=== PATIENT | female | born 1950 | race American Indian/Alaskan Native ===

== ENCOUNTER 2017-06-04 08:25 | Inpatient (IN) | payer BC, MEDICARE ==
[~2017-06-04 08:25] MED LIST: ANCEF/STERILE WATER 2 GM/20 ML IV NR
[2017-06-04] MEDS ORDERED: ZOFRAN IV PRN (12:09)
--- NOTE | 2017-06-04 12:11 | Anesthesia Day of Surgery ---
Anesthesia Day of Surgery - Day of Surgery Patient Examined: Yes Patient H&P Reviewed: Yes Patient is NPO: Yes Beta Blockers: Yes
--- NOTE | 2017-06-04 12:13 | Anesthesia Consultation ---
Anesthesia Consult and Med Hx Date of service: 06/04/17 - Airway Anesthetic Teeth Evaluation: Good, Dentures (top) ROM Head & Neck: Adequate Mental/Hyoid Distance: Adequate Mallampati Class: Class II Intubation Access Assessment: Probably Good - Pulmonary Exam CTA: Yes - Cardiac Exam Cardiac Exam: RRR - Pre-Operative Health Status ASA Pre-Surgery Classification: ASA3 Proposed Anesthetic Plan: General - Pulmonary Hx Smoking: Yes (STOPPED 1998, 09/09 PPD X 10 YRS) Hx Sleep Apnea: No (MELVI PRE SCREEN HIGH RISK) - Cardiovascular System Hx Hypertension: Yes (X 10 YRS) Hx Heart Murmur: Yes (CAUSES NO PROBLEMS) - Central Nervous System CVA: No - Gastrointestinal Hx Gastroesophageal Reflux Disease: No - Endocrine Hx Renal Disease: Yes (AVF LEFT ARM) Hx End Stage Renal Disease: Yes (HEMODIALYSIS 3 X PER WEEK) Hx Non-Insulin Dependent Diabetes: No - Hematic Hx Anemia: Yes Hx Sickle Cell Disease: Yes (SC TRAIT ONLY) - Other Systems Hx Cancer: Yes (Left Breast CA History, Mastectomy) Hx Obesity: Yes - Additional Comments Anesthesia Medical History Comments: NAC
[2017-06-04] MEDS: NACL 0.9% 1000 ML 1,000 ML IV SCH ×2 (12:30→21:54)
[2017-06-04] MEDS ORDERED: DIPRIVAN 10 MG/ML IV ONE ×2 (12:55→15:48)
[2017-06-04] MEDS ORDERED: SUBLIMAZE ONE (12:55)
[2017-06-04] MEDS ORDERED: XYLOCAINE MPF 2% ONE (12:56)
[2017-06-04] MEDS ORDERED: XYLOCAINE 1% 20 mL ONE (12:59)
[2017-06-04] MEDS ORDERED: MARCAINE-EPI/PF 0.5%-1:200,000 INFILTRATI ONE ×2 (13:00→15:05)
[2017-06-04] MEDS ORDERED: PEPCID IV NR (13:00)
[2017-06-04] MEDS ORDERED: VERSED IV NR (13:00)
[2017-06-04] MEDS ORDERED: ePHEDrine SULFATE ONE (13:42)
[2017-06-04] MEDS ORDERED: ROBINUL ONE ×2 (13:44→14:47)
[2017-06-04] MEDS ORDERED: PROAIR IH ONE (13:49)
[2017-06-04 14:23] LABS: BUN/Creatinine Ratio 7.74; Calcium 9.3 mg/dL (8.4-10.2); Chloride 99.4 mmol/L (98-107); Potassium 5.2 mmol/L (3.6-5.0)
[2017-06-04] MEDS ORDERED: NEOSTIGMINE ONE (14:47)
[2017-06-04] MEDS ORDERED: NEO SYNEPHRINE ONE (14:53)
[2017-06-04] MEDS ORDERED: NACL 0.9% 100 ML ONE (14:53)
--- NOTE | 2017-06-04 14:55 | XRay Report ---
Single fluoroscopic image of upper chest: History: Central line placement. Findings: Tip of the central line appears to be near the origin of the left internal jugular vein. Impression: Findings as detailed above.
[2017-06-04 14:59] LABS: PTH Baseline 641.9 (11.1-79.5)
[2017-06-04] MEDS ORDERED: NACL 0.9% IR ONE (14:59)
[2017-06-04] MEDS ORDERED: XYLOCAINE 1% 20 mL INFILTRATI ONE (15:04)
--- NOTE | 2017-06-04 15:06 | Post Operative Note ---
Pre-op diagnosis: secondary hyperparathyroidism Post-op diagnosis: other (difficult IV access) Findings: 3 large PTH glands removed. Only L. upper pole PTH remaining. Difficult IV access requiring TLC placement. Procedure: Subtotal PTH resection, TLC placement with US guidance and flouro Anesthesia: SANJU Surgeon: STEFANIE HERNANDEZ Estimated blood loss: none Pathology: list (3 PTH glands) Specimen disposition: to lab Condition: stable Disposition: PACU
[2017-06-04 15:28] LABS: PTH Post-Excision 154.7 (11.1-79.5)
[2017-06-04] MEDS ORDERED: S2 RACEPINEPHRINE 2.25% IH ONE (15:44)
[2017-06-04] MEDS ORDERED: QUELICIN ONE (15:49)
[2017-06-04 16:24] LABS: ISTAT K 5.3 (3.5-4.9)
[2017-06-04 16:24] LABS: ISTAT Base Excess 3; ISTAT HCO3 29.3; ISTAT PCO2 58.7 (35-45); ISTAT PH 7.306 (7.35-7.45); ISTAT PO2 338 (80-105); ISTAT SO2 100; ISTAT TCO2 31
[2017-06-04 16:24] LABS: ISTAT K 5.2 (3.5-4.9)
[2017-06-04] MEDS ORDERED: DECADRON IV ONE (16:30)
--- NOTE | 2017-06-04 16:30 | Progress Note ---
Subjective Date of service: 06/04/17 Principal diagnosis: Inadequate ventilation Interval history: s/p subtotal parathyroidectomy. Patient present to PACU on NRFM 10L/min. Vital signs stable. Increasing agitation and uncooperative. MD notified and at bedside. Spo2 88-90 with no support except NRFM. Patient nonresponsive - immediate AMBU ventilation by MD. A/W suctioned. SpO2 96-97% with other vitals WNL. Administered 100mg Succinylcholine and 200mg Propofol. DL 1- Husain 2: swelling noted in airway obstructing view of vocal chords. CL III view. 6.5 OETT placed without complication. BBS +, EtCO2 +, VSS. OETT secured at 22cm teeth. Respiratory therapy placed patient on vent. VSS. Surgeon notified. Objective - Constitutional Vitals: Vital Signs - 12hr 06/04/17 11:00 Temperature 97.8 F Pulse Rate 59 L Respiratory 18 Rate Blood Pressure 163/95 O2 Sat by Pulse 95 Oximetry - Labs CBC & Chem 7: 06/04/17 13:55 Labs: Abnormal lab results 06/04/17 06/04/17 06/04/17 Range/Units 12:50 13:55 13:55 Potassium 5.1 H 5.2 H (3.6-5.0) mmol/L BUN 48 H (7-17) mg/dL Creatinine 6.2 H (0.7-1.2) mg/dL PTH Pre-Incision 641.9 H (11.1-79.5) PTH Post-Excision 154.7 H (11.1-79.5)
--- NOTE | 2017-06-04 16:31 | XRay Report ---
Single view chest: Compared to 06/04/17 and obtained at 1:43 PM History: ET tube placement. Findings: Cardiomegaly with pulmonary venous congestion. No consolidation, pneumothorax or pleural effusion. Tip of endotracheal tube in normal position. No interval change in position of the left central line. Impression: Normal position of endotracheal tube.
[2017-06-04] MEDS ORDERED: DECADRON ONE (16:34)
[2017-06-04] MEDS ORDERED: ALUM-MAG HYDROX-SIMETH 200-200-20MG/5ML PO PRN (16:35)
[2017-06-04] MEDS ORDERED: MILK OF MAGNESIA PO PRN (16:35)
[2017-06-04] MEDS ORDERED: DULCOLAX PR PRN (16:35)
--- NOTE | 2017-06-04 16:35 | History and Physical Report ---
History of Present Illness Date of admission: 06/04/17 08:25 Chief complaint: Cant breathe History of present illness: 66 YO Female with MO, HTN, MELVI, ESRD on HD, Hyperparathyroidism, Breast Cancer S /P Mastectomy admitted directly to hospitalist service at the request of Dr. Singh. Pt underwent elective parathyroid surgery and found to have electrolyte abnormalities , and well as respiratory distress. Pt seen and evaluated and found to be in respiratory distress, and was subsequently intubated and placed on vent support. Pt unable to provide history. History taken from hospital staff and medical record. No reports of fever, chills, CP, Palpitations, NVD, or recent ill contacts. Past History Past Medical History: ESRD, hypertension, other (hyperparathyroidism) Past Surgical History: mastectomy, Other (Parathyroidectomy) Social history: single. denies: smoking, alcohol abuse, prescription drug abuse , IV drug use Family history: hypertension Medications and Allergies Allergies Allergy/AdvReac Type Severity Reaction Status Date / Time No Known Allergies Allergy Verified 06/01/17 16:40 Home Medications Medication Instructions Recorded Confirmed Last Taken Type Aspirin [Adult Low Dose Aspirin EC] 81 mg PO DAILY 06/01/17 06/04/17 06/02/17 History Cinacalcet HCl [Sensipar] 180 mg PO DAILY 06/01/17 06/01/17 06/03/17 History Furosemide [Lasix TAB] 80 mg PO QDAY 06/01/17 06/01/17 Unknown History Losartan [Cozaar] 100 mg PO QDAY 06/01/17 06/01/17 06/04/17 07:00 History Metoprolol [Lopressor TAB] 50 mg PO BID 06/01/17 06/01/17 06/04/17 07:00 History Sevelamer Carbonate [Renvela] 1,600 mg PO TIDWM 06/01/17 06/01/17 06/03/17 History Active Meds: Active Medications Famotidine (Pepcid) 20 mg IV PREOP NR Stop: 06/04/17 23:59 Last Admin: 06/04/17 12:55 Dose: 20 mg Hydromorphone HCl (Dilaudid) 0.5 mg IV Q10MIN PRN PRN Reason: Pain , Severe (7-10) Stop: 06/04/17 23:59 Sodium Chloride (Nacl 0.9% 1000 Ml) 1,000 mls @ 100 mls/hr IV DIRECT JANE Last Admin: 06/04/17 12:30 Dose: 100 mls/hr Midazolam HCl (Versed) 2 mg IV PREOP NR Stop: 06/04/17 23:59 Last Admin: 06/04/17 12:35 Dose: 2 mg Review of Systems ROS unobtainable: due to mental status Exam - Constitutional Vitals: Temp Pulse Resp BP Pulse Ox 97.8 F 62 18 163/95 98 06/04/17 11:00 06/04/17 16:27 06/04/17 11:00 06/04/17 11:00 06/04/17 16:27 General appearance: Present: severe distress, obese - EENT Eyes: Present: PERRL ENT: hearing intact, clear oral mucosa - Neck Neck: Present: supple, normal ROM - Respiratory Respiratory effort: labored Respiratory: bilateral: diminished - Cardiovascular Heart Sounds: Present: S1 & S2. Absent: rub, click - Extremities Extremities: pulses symmetrical, No edema Extremity abnormal: edema Peripheral Pulses: within normal limits - Abdominal Female genitourinary: Present: normal - Integumentary Integumentary: Present: clear, warm, dry - Musculoskeletal Musculoskeletal: generalized weakness - Psychiatric Psychiatric: no intact judgment & insight, no memory intact, agitated - Neurologic Neurologic: CNII-XII intact, moves all extremities Results - Labs CBC & Chem 7: 06/04/17 13:55 Labs: Abnormal lab results 06/04/17 06/04/17 06/04/17 Range/Units 12:50 13:55 13:55 POC Hct (38-51) POC ABG pH (7.35-7.45) POC ABG pCO2 (35-45) POC ABG pO2 (80-105) POC Sodium (138-146) mmol/L POC Potassium (3.5-4.9) Potassium 5.1 H 5.2 H (3.6-5.0) mmol/L POC BUN (8-26) mg/dl BUN 48 H (7-17) mg/dL Creatinine 6.2 H (0.7-1.2) mg/dL POC Glucose (70-105) PTH Pre-Incision 641.9 H (11.1-79.5) PTH Post-Excision 154.7 H (11.1-79.5) 06/04/17 06/04/17 06/04/17 Range/Units 16:10 16:16 16:22 POC Hct 37 L (38-51) POC ABG pH 7.306 L (7.35-7.45) POC ABG pCO2 58.7 H (35-45) POC ABG pO2 338 H (80-105) POC Sodium 135 L 137 L (138-146) mmol/L POC Potassium 5.2 H 5.3 H (3.5-4.9) Potassium (3.6-5.0) mmol/L POC BUN 44 H 45 H (8-26) mg/dl BUN (7-17) mg/dL Creatinine (0.7-1.2) mg/dL POC Glucose 183 H 176 H (70-105) PTH Pre-Incision (11.1-79.5) PTH Post-Excision (11.1-79.5) Assessment and Plan - Patient Problems (1) Acute respiratory failure Current Visit: Yes Status: Acute Qualifiers: Respiratory failure complication: R Plan to address problem: Pulmonary consulted, wean vent as tolerated, SBT daily, ABG in AM, nebulizer therapy, pulmonary toilet, IV decadron for swelling, The high probability of a clinically significant, sudden or life threatening deterioration of the [Pulmonary, cardiac, renal] system(s) required my full and direct attention, intervention and personal management. The aggregate critical care time was [68] minutes. This time is in addition to time spent performing reported procedures but includes the following: [x] Data Review and interpretation [x] Patient assessment and monitoring of vital signs [x] Documentation [x] Medication orders and management (2) ESRD (end stage renal disease) on dialysis Current Visit: Yes Status: Acute Plan to address problem: Nephrology consulted, dialysis as per renal team (3) HTN (hypertension) Current Visit: Yes Status: Acute Qualifiers: Hypertension type: H Plan to address problem: Monitor bp q shift, continue medical management. (4) Hypercalcemia Current Visit: Yes Status: Acute Plan to address problem: nephrology consulted, repeat calcium level (5) Hyperparathyroidism Current Visit: Yes Status: Acute Plan to address problem: serial calcium level, S/P parathyroidectomy, nephrology consulted (6) DVT prophylaxis Current Visit: Yes Status: Acute
[2017-06-04] MEDS ORDERED: ARTIFICIAL TEARS OPHTH OINT OU PRN ×2 (16:39→17:25)
[2017-06-04] MEDS ORDERED: VASELINE LIP THERAPY TP PRN ×2 (16:39→17:25)
--- NOTE | 2017-06-04 16:46 | Post Anesthesia Evaluation ---
- Post Anesthesia Evaluation Patient Participated: No Airway Patent: Yes Stable Respiratory Function: Yes Nausea/Vomiting: No Temp > 96.8F: Yes Pain Manageable: Yes Block Receding Appropriately: Not Applicable Patient on Ventilator: Yes Other Comments: Ms Mckoen was extubated in the OR at end of case and transported to PACU with SaO2 100%. Shortly thereafter she developed respiratory distress with the ability to inspire bur a markedly prolonged expiratory phase. Her SaO2 decreased into the mid 80's and she had decreased level of consciousness. She was reintubated emergently by the national stormwater leader who reported erythema and some swelling in the glottic area. There was a fullness noted at the surgical site but no obvious hematoma. ABG immediately after intubation showed a mild increase in CO2 and a mild acidosis. Oxygen level was appropriate for her FiO2.
[2017-06-04] MEDS: DIPRIVAN 10 MG/ML 1,000 MG/100 ML BOTTLE IV SCH (16:50)
[2017-06-04] MEDS ORDERED: DIPRIVAN 10 MG/ML 1,000 MG/100 ML BOTTLE IV SCH (17:00)
[2017-06-04] MEDS: DILAUDID IV PRN ×3 (17:05→22:04)
[2017-06-04 21:00] LABS: ISTAT Base Excess 6; ISTAT PCO2 38.6 (35-45); ISTAT PH 7.484 (7.35-7.45); ISTAT PO2 100 (80-105); ISTAT SO2 98; ISTAT TCO2 30
[2017-06-04] MEDS: DECADRON IV SCH ×2 (21:54→22:06)
[2017-06-04] MEDS: PEPCID IV SCH (21:55)
[2017-06-04 21:59] LABS: BUN/Creatinine Ratio 7.84; Calcium 8.9 mg/dL (8.4-10.2); Chloride 98.9 mmol/L (98-107); Potassium 5.2 mmol/L (3.6-5.0)
[2017-06-04 22:30] LABS: Hemoglobin 10.3 gm/dl (10.1-14.3); Mean Corpuscular HGB Conc 30 % (30-34); Mean Corpuscular Volume 76 fl (79-97); Platelet Count 251 K/mm3 (140-440); Red Blood Count 4.44 M/mm3 (3.65-5.03); Red Cell Distribution Width 18.5 % (13.2-15.2); White Blood Count 11.4 K/mm3 (4.5-11.0)
[2017-06-04 23:03] LABS: Mean Corpuscular Hemoglobin 23 pg (28-32)
--- NOTE | 2017-06-05 00:05 | Operative Report ---
PREOPERATIVE DIAGNOSES: Secondary hyperparathyroidism and difficult IV access. POSTOPERATIVE DIAGNOSES: Secondary hyperparathyroidism and difficult IV access. PROCEDURE: Subtotal parathyroidectomy and central line placement with ultrasound guidance and use of fluoroscopy. SURGEON: Sascha Singh M.D. SERVICE CASHIER: None. ANESTHESIA: General anesthesia. ESTIMATED BLOOD LOSS: Minimal. COMPLICATIONS: None. DRAINS: None. SPECIMEN: Three parathyroid glands. The patient tolerated the procedure well. FINDINGS: Enlarged parathyroid secondary to hyperparathyroidism. The left superior parathyroid was normal appearance. All other three were very enlarged and hypercellular in appearance. We did a subtotal parathyroidectomy, the patient unable to get IV access, we had to put a central line for IV access. DESCRIPTION OF PROCEDURE: The patient was taken to the OR and placed supine on the operating table. Once general anesthesia obtained, due to her difficult IV access we elected to place a central line. The area of the neck was prepped and draped. With help of ultrasound guidance, we were able to localize the internal jugular vein. The internal jugular vein was then percutaneously aspirated under ultrasound guidance. Good aspiration of fluid, placed a guide wire through the internal jugular vein, slid it inferiorly. There was some resistance near the confluence. Due to this, I elected just to put the catheter just in proximal to this confluence was. The guide wire was left in place. Needle removed. The tract was dilated. The catheter was slid to approximately 12 cm. The guide wire was removed. The triple lumen catheter was flushed and found to function appropriately. It was secured in place with a silk suture. This position of the catheter was checked by fluoroscopy. After this was completed, the neck was extended and prepped and draped in sterile fashion. A transverse collar incision made approximately 5 cm in length and ____ was taken to subcutaneous tissue through the platysma, flaps raised superiorly, inferiorly exposing midline. Strap muscles incised in the midline to expose the thyroid. We started on the left thyroid side first, left thyroid was mobilized medially, strap muscles inferolaterally. Then, the left superior parathyroid as well as left inferior parathyroid. The left superior parathyroid was marginally enlarged compared to normal. The left inferior parathyroid was very enlarged as well as very firm and dense consistent with hypercellularity. It was dissected down. The vascular pedicle transected and sent completely as a frozen section. In similar fashion, the right side was done. The right thyroid was mobilized medially. Strap muscles dissected laterally. The right inferior parathyroid was very enlarged, approximately 4 cm in diameter and it was dissected down to left pedicle transected with LigaSure and sent as specimen. In the similar fashion, the superior one was approximately about 2 cm in diameter. All 3 parathyroid was confirmed to be hypercellular parathyroid tissue. I elected to leave the left superior since they appeared marginally normal. After adequate hemostasis, the strap muscle was approximated with 3-0 Vicryl, subcutaneous tissues approximated with 3-0 Vicryl, skin was approximated with subcuticular technique and Dermabond was placed on the incision. The patient tolerated the procedure well. JOB# [id number] KIET/BARBI
[2017-06-05 00:28] LABS: Anisocytosis Few; Blastocytes % (Manual) 0 %; Eosinophils % (Manual) 0 % (0.0-4.3); Hypochromasia 1+; Ovalocytes 1+
[2017-06-05 00:29] LABS: Target Cells Rare
[2017-06-05 00:30] LABS: Diff Status Complete
[2017-06-05 03:33] LABS: ISTAT Base Excess 1; ISTAT HCO3 25.7; ISTAT PCO2 42.2 (35-45); ISTAT PH 7.393 (7.35-7.45); ISTAT PO2 75 (80-105); ISTAT SO2 95; ISTAT TCO2 27
[2017-06-05] MEDS: DECADRON IV SCH ×3 (06:41→23:34)
[2017-06-05] MEDS: NACL 0.9% 1000 ML 1,000 ML IV SCH (06:41)
--- NOTE | 2017-06-05 09:53 | Progress Note ---
Assessment and Plan Assessment and plan: --Acute hypoxic respiratory failure On ventilatory support, continue nebulizers supportive care --Status post subtotal parathyroidectomy Continue postop care --End-stage renal disease on hemodialysis Continue HD per schedule, nephrology following --Hyperkalemia; hemodialysis, --Hypertension ;moderate control ,continue current antihypertensives and when necessary medications --History of breast cancer status post mastectomy stable --Morbid obesity with BMI of 47.8, Patient would benefit by outpatient bariatric surgical evaluation for weight reduction program and medically stable --Full CODE STATUS Critical care time 31 minutes History Interval history: Patient seen and examined in her room Medical records reviewed Orally intubated on ventilatory support Receiving hemodialysis No new complaints Hospitalist Physical - Constitutional Vitals: Temp Pulse Resp BP Pulse Ox 98.1 F 60 16 148/62 96 06/05/17 02:58 06/05/17 07:00 06/05/17 06:30 06/05/17 07:00 06/05/17 07:00 General appearance: Present: no acute distress, obese (morbidly obese) - EENT Eyes: Present: PERRL - Neck Neck: Present: supple, normal ROM - Respiratory Respiratory effort: normal Respiratory: bilateral: diminished, rhonchi, negative: rales, wheezing - Cardiovascular Rhythm: regular Heart Sounds: Present: S1 & S2 - Extremities Extremities: no ischemia, No edema - Abdominal General gastrointestinal: soft, non-tender, non-distended, normal bowel sounds - Integumentary Integumentary: Present: clear, warm - Psychiatric Psychiatric: other (intubated and sedated) - Neurologic Neurologic: other ( intubated and sedated) Results - Labs CBC & Chem 7: 06/05/17 11:44 06/05/17 11:44 Labs: Laboratory Last Values WBC 11.4 K/mm3 (4.5-11.0) H 06/04/17 00:01 RBC 4.44 M/mm3 (3.65-5.03) 06/04/17 00:01 Hgb 10.3 gm/dl (10.1-14.3) 06/04/17 00:01 POC Hgb 14.3 (12-17) 06/04/17 16:22 Hct 34.0 % (30.3-42.9) 06/04/17 00:01 POC Hct 42 (38-51) 06/04/17 16:22 MCV 76 fl (79-97) L 06/04/17 00:01 MCH 23 pg (28-32) L 06/04/17 00:01 MCHC 30 % (30-34) 06/04/17 00:01 RDW 18.5 % (13.2-15.2) H 06/04/17 00:01 Plt Count 251 K/mm3 (140-440) 06/04/17 00:01 Add Manual Diff Complete 06/04/17 00:01 Total Counted 100 06/04/17 00:01 Seg Neutrophils % Butcher Helper 06/04/17 00:01 Seg Neuts % (Manual) 89.0 % (40.0-70.0) H 06/04/17 00:01 Band Neutrophils % 4.0 % 06/04/17 00:01 Lymphocytes % (Manual) 6.0 % (13.4-35.0) L 06/04/17 00:01 Reactive Lymphs % (Man) 0 % 06/04/17 00:01 Monocytes % (Manual) 0 % (0.0-7.3) 06/04/17 00:01 Eosinophils % (Manual) 0 % (0.0-4.3) 06/04/17 00:01 Basophils % (Manual) 1.0 % (0.0-1.8) 06/04/17 00:01 Metamyelocytes % 0 % 06/04/17 00:01 Myelocytes % 0 % 06/04/17 00:01 Promyelocytes % 0 % 06/04/17 00:01 Blast Cells % 0 % 06/04/17 00:01 Nucleated RBC % Not Reportable 06/04/17 00:01 Seg Neutrophils # Man 10.1 K/mm3 (1.8-7.7) H 06/04/17 00:01 Band Neutrophils # 0.5 K/mm3 06/04/17 00:01 Lymphocytes # (Manual) 0.7 K/mm3 (1.2-5.4) L 06/04/17 00:01 Abs React Lymphs (Man) 0.0 K/mm3 06/04/17 00:01 Monocytes # (Manual) 0.0 K/mm3 (0.0-0.8) 06/04/17 00:01 Eosinophils # (Manual) 0.0 K/mm3 (0.0-0.4) 06/04/17 00:01 Basophils # (Manual) 0.1 K/mm3 (0.0-0.1) 06/04/17 00:01 Metamyelocytes # 0.0 K/mm3 06/04/17 00:01 Myelocytes # 0.0 K/mm3 06/04/17 00:01 Promyelocytes # 0.0 K/mm3 06/04/17 00:01 Blast Cells # 0.0 K/mm3 06/04/17 00:01 WBC Morphology Not Reportable 06/04/17 00:01 Hypersegmented Neuts Not Reportable 06/04/17 00:01 Hyposegmented Neuts Not Reportable 06/04/17 00:01 Hypogranular Neuts Not Reportable 06/04/17 00:01 Smudge Cells Not Reportable 06/04/17 00:01 Toxic Granulation Not Reportable 06/04/17 00:01 Toxic Vacuolation Not Reportable 06/04/17 00:01 Dohle Bodies Not Reportable 06/04/17 00:01 Pelger-Huet Anomaly Not Reportable 06/04/17 00:01 Sunita Rods Not Reportable 06/04/17 00:01 Platelet Estimate Appears normal 06/04/17 00:01 Clumped Platelets Not Reportable 06/04/17 00:01 Plt Clumps, EDTA Not Reportable 06/04/17 00:01 Large Platelets Not Reportable 06/04/17 00:01 Giant Platelets Not Reportable 06/04/17 00:01 Platelet Satelliting Not Reportable 06/04/17 00:01 Plt Morphology Comment Not Reportable 06/04/17 00:01 RBC Morphology Not Reportable 06/04/17 00:01 Dimorphic RBCs Not Reportable 06/04/17 00:01 Polychromasia Not Reportable 06/04/17 00:01 Hypochromasia 1+ 06/04/17 00:01 Poikilocytosis Not Reportable 06/04/17 00:01 Anisocytosis Few 06/04/17 00:01 Microcytosis Not Reportable 06/04/17 00:01 Macrocytosis Not Reportable 06/04/17 00:01 Spherocytes Not Reportable 06/04/17 00:01 Pappenheimer Bodies Not Reportable 06/04/17 00:01 Sickle Cells Not Reportable 06/04/17 00:01 Target Cells Rare 06/04/17 00:01 Tear Drop Cells Not Reportable 06/04/17 00:01 Ovalocytes 1+ 06/04/17 00:01 Helmet Cells Not Reportable 06/04/17 00:01 Ramos-[place] Bodies Not Reportable 06/04/17 00:01 [place] Rings Not Reportable 06/04/17 00:01 Ballinger Cells Not Reportable 06/04/17 00:01 Bite Cells Not Reportable 06/04/17 00:01 Crenated Cell Not Reportable 06/04/17 00:01 Elliptocytes Not Reportable 06/04/17 00:01 Acanthocytes (Spur) Not Reportable 06/04/17 00:01 Rouleaux Not Reportable 06/04/17 00:01 Hemoglobin C Crystals Not Reportable 06/04/17 00:01 Schistocytes Not Reportable 06/04/17 00:01 Malaria parasites Not Reportable 06/04/17 00:01 Williams Bodies Not Reportable 06/04/17 00:01 Hem Pathologist Commnt No 06/04/17 00:01 POC ABG pH 7.393 (7.35-7.45) 06/05/17 03:31 POC ABG pCO2 42.2 (35-45) 06/05/17 03:31 POC ABG pO2 75 (80-105) L 06/05/17 03:31 POC ABG HCO3 25.7 06/05/17 03:31 POC ABG Total CO2 27 06/05/17 03:31 POC ABG O2 Sat 95 06/05/17 03:31 POC ABG Base Excess 1 06/05/17 03:31 POC Sodium 137 mmol/L (138-146) L 06/04/17 16:22 POC Potassium 5.3 (3.5-4.9) H 06/04/17 16:22 POC Chloride 102 (98-109) 06/04/17 16:22 FiO2 50 % 06/05/17 03:31 Sodium 138 mmol/L (137-145) 06/04/17 21:29 Potassium 5.2 mmol/L (3.6-5.0) H 06/04/17 21:29 Chloride 98.9 mmol/L (98-107) 06/04/17 21:29 Carbon Dioxide 24 mmol/L (22-30) 06/04/17 21:29 Anion Gap 20 mmol/L 06/04/17 21:29 POC BUN 45 mg/dl (8-26) H 06/04/17 16:22 BUN 51 mg/dL (7-17) H 06/04/17 21:29 Creatinine 6.5 mg/dL (0.7-1.2) H 06/04/17 21:29 Estimated GFR 8 ml/min 06/04/17 21:29 BUN/Creatinine Ratio 7.84 % 06/04/17 21:29 Glucose 119 mg/dL (65-100) H 06/04/17 21:29 POC Glucose 176 (70-105) H 06/04/17 16:22 Calcium 8.9 mg/dL (8.4-10.2) 06/04/17 21:29 PTH Pre-Incision 641.9 (11.1-79.5) H 06/04/17 13:55 PTH Post-Excision 154.7 (11.1-79.5) H 06/04/17 13:55 PTH Intact Intraop 5 m Not Reportable 06/04/17 13:55
--- NOTE | 2017-06-05 10:21 | Progress Note ---
Assessment and Plan sp PTH resection. Hopeful dialysis and extubation today. Calcium stable. Pt comfortable. Subjective Date of service: 06/05/17 Patient Reports: Positive: no new complaints (on vent) Objective Vital Signs - 12hr 06/04/17 06/04/17 06/04/17 22:20 22:30 22:40 Temperature Pulse Rate 62 61 59 L Pulse Rate [ From Monitor] Respiratory 16 16 16 Rate Blood Pressure 153/68 153/68 153/68 O2 Sat by Pulse 97 96 95 Oximetry 06/04/17 06/04/17 06/04/17 22:50 23:00 23:07 Temperature Pulse Rate 58 L 56 L 56 L Pulse Rate [ From Monitor] Respiratory 16 16 Rate Blood Pressure 153/68 162/63 162/63 O2 Sat by Pulse 95 95 95 Oximetry 06/04/17 06/04/17 06/04/17 23:08 23:10 23:20 Temperature Pulse Rate 56 L 65 58 L Pulse Rate [ From Monitor] Respiratory 16 16 16 Rate Blood Pressure 162/63 162/63 162/63 O2 Sat by Pulse 95 96 96 Oximetry 06/04/17 06/04/17 06/04/17 23:30 23:35 23:40 Temperature 98.1 F Pulse Rate 56 L 55 L Pulse Rate [ From Monitor] Respiratory 16 16 Rate Blood Pressure 162/63 162/63 O2 Sat by Pulse 95 96 Oximetry 06/04/17 06/05/17 06/05/17 23:50 00:00 00:10 Temperature Pulse Rate 56 L 55 L 57 L Pulse Rate [ 58 L From Monitor] Respiratory 16 16 16 Rate Blood Pressure 162/63 146/64 146/64 O2 Sat by Pulse 96 96 96 Oximetry 06/05/17 06/05/17 06/05/17 00:20 00:30 00:40 Temperature Pulse Rate 56 L 55 L 55 L Pulse Rate [ From Monitor] Respiratory 16 16 16 Rate Blood Pressure 146/64 146/64 146/64 O2 Sat by Pulse 96 96 96 Oximetry 06/05/17 06/05/17 06/05/17 00:50 01:00 01:10 Temperature Pulse Rate 54 L 54 L 54 L Pulse Rate [ From Monitor] Respiratory 16 16 16 Rate Blood Pressure 146/64 147/69 147/69 O2 Sat by Pulse 96 96 96 Oximetry 06/05/17 06/05/17 06/05/17 01:20 01:30 01:40 Temperature Pulse Rate 54 L 54 L 54 L Pulse Rate [ From Monitor] Respiratory 16 16 16 Rate Blood Pressure 146/64 146/64 146/64 O2 Sat by Pulse 96 96 96 Oximetry 06/05/17 06/05/17 06/05/17 01:50 02:00 02:10 Temperature Pulse Rate 54 L 53 L 54 L Pulse Rate [ From Monitor] Respiratory 16 16 16 Rate Blood Pressure 147/69 156/66 156/66 O2 Sat by Pulse 96 96 96 Oximetry 06/05/17 06/05/17 06/05/17 02:20 02:30 02:40 Temperature Pulse Rate 55 L 54 L 68 Pulse Rate [ From Monitor] Respiratory 16 16 17 Rate Blood Pressure 156/66 156/66 156/66 O2 Sat by Pulse 96 96 95 Oximetry 06/05/17 06/05/17 06/05/17 02:50 02:57 02:58 Temperature 98.1 F Pulse Rate 57 L 57 L Pulse Rate [ From Monitor] Respiratory 16 Rate Blood Pressure 156/66 156/66 O2 Sat by Pulse 96 96 Oximetry 06/05/17 06/05/17 06/05/17 03:00 03:10 03:20 Temperature Pulse Rate 57 L 62 59 L Pulse Rate [ From Monitor] Respiratory 16 16 16 Rate Blood Pressure 161/76 161/76 161/76 O2 Sat by Pulse 96 96 96 Oximetry 06/05/17 06/05/17 06/05/17 03:30 03:40 03:50 Temperature Pulse Rate 58 L 54 L 54 L Pulse Rate [ From Monitor] Respiratory 16 16 16 Rate Blood Pressure 161/76 161/76 161/76 O2 Sat by Pulse 96 94 96 Oximetry 06/05/17 06/05/17 06/05/17 04:00 04:10 04:20 Temperature Pulse Rate 54 L 54 L 54 L Pulse Rate [ From Monitor] Respiratory 16 16 16 Rate Blood Pressure 163/69 163/69 163/69 O2 Sat by Pulse 96 95 96 Oximetry 06/05/17 06/05/17 06/05/17 04:30 04:40 04:50 Temperature Pulse Rate 54 L 55 L 53 L Pulse Rate [ From Monitor] Respiratory 16 16 16 Rate Blood Pressure 163/69 163/69 163/69 O2 Sat by Pulse 97 97 97 Oximetry 06/05/17 06/05/1706/05/17 05:00 05:10 05:20 Temperature Pulse Rate 56 L 54 L 54 L Pulse Rate [ From Monitor] Respiratory 16 16 16 Rate Blood Pressure 163/71 163/71 163/71 O2 Sat by Pulse 95 94 95 Oximetry 06/05/17 06/05/17 06/05/17 05:30 05:40 05:50 Temperature Pulse Rate 54 L 54 L 54 L Pulse Rate [ From Monitor] Respiratory 16 16 16 Rate Blood Pressure 163/71 163/71 163/71 O2 Sat by Pulse 95 96 96 Oximetry 06/05/17 06/05/17 06/05/17 06:00 06:10 06:20 Temperature Pulse Rate 53 L 57 L 53 L Pulse Rate [ From Monitor] Respiratory 16 16 16 Rate Blood Pressure 150/71 150/71 150/71 O2 Sat by Pulse 95 96 96 Oximetry 06/05/17 06/05/17 06/05/17 06:30 07:00 08:00 Temperature Pulse Rate 55 L 64 56 L Pulse Rate [ From Monitor] Respiratory 16 16 16 Rate Blood Pressure 150/71 158/74 162/73 O2 Sat by Pulse 95 96 93 Oximetry 06/05/17 06/05/17 06/05/17 09:00 09:55 10:00 Temperature Pulse Rate 60 64 59 L Pulse Rate [ From Monitor] Respiratory 16 16 Rate Blood Pressure 170/78 157/76 O2 Sat by Pulse 97 96 96 Oximetry - General physical appearance well developed, well nourished - Eyes PERRL, normal occular movement - ENT normal pinna (incision clean), normal nares, normal mucosa, no hearing loss, no congestion - Neck no masses (incision clean, no swelling), no bruits, trachea midline, no lymphadectomy, no venous distension - Respiratory normal expansion, normal respiratory effort, clear to percussion, clear to auscultation - Labs 06/04/17 00:01 06/04/17 21:29 Diabetes panel 06/04/17 06/04/17 06/04/17 Range/Units 12:50 13:55 21:29 Sodium 138 138 (137-145) mmol/L Potassium 5.1 H 5.2 H 5.2 H (3.6-5.0) mmol/L Chloride 99.4 98.9 (98-107) mmol/L Carbon Dioxide 27 24 (22-30) mmol/L BUN 48 H 51 H (7-17) mg/dL Creatinine 6.2 H 6.5 H (0.7-1.2) mg/dL Glucose 86 119 H (65-100) mg/dL Calcium 9.3 8.9 (8.4-10.2) mg/dL 06/04/17 Range/Units 21:29 Sodium (137-145) mmol/L Potassium (3.6-5.0) mmol/L Chloride (98-107) mmol/L Carbon Dioxide (22-30) mmol/L BUN (7-17) mg/dL Creatinine (0.7-1.2) mg/dL Glucose (65-100) mg/dL Calcium 9.2 (8.4-10.2) mg/dL Calcium panel 06/04/17 06/04/17 06/04/17 Range/Units 13:55 21:29 21:29 Calcium 9.3 8.9 9.2 (8.4-10.2) mg/dL Pituitary panel 06/04/17 06/04/17 06/04/17 Range/Units 12:50 13:55 21:29 Sodium 138 138 (137-145) mmol/L Potassium 5.1 H 5.2 H 5.2 H (3.6-5.0) mmol/L Chloride 99.4 98.9 (98-107) mmol/L Carbon Dioxide 27 24 (22-30) mmol/L BUN 48 H 51 H (7-17) mg/dL Creatinine 6.2 H 6.5 H (0.7-1.2) mg/dL Glucose 86 119 H (65-100) mg/dL Calcium 9.3 8.9 (8.4-10.2) mg/dL 06/04/17 Range/Units 21:29 Sodium (137-145) mmol/L Potassium (3.6-5.0) mmol/L Chloride (98-107) mmol/L Carbon Dioxide (22-30) mmol/L BUN (7-17) mg/dL Creatinine (0.7-1.2) mg/dL Glucose (65-100) mg/dL Calcium 9.2 (8.4-10.2) mg/dL Adrenal panel 06/04/17 06/04/17 06/04/17 Range/Units 12:50 13:55 21:29 Sodium 138 138 (137-145) mmol/L Potassium 5.1 H 5.2 H 5.2 H (3.6-5.0) mmol/L Chloride 99.4 98.9 (98-107) mmol/L Carbon Dioxide 27 24 (22-30) mmol/L BUN 48 H 51 H (7-17) mg/dL Creatinine 6.2 H 6.5 H (0.7-1.2) mg/dL Glucose 86 119 H (65-100) mg/dL Calcium 9.3 8.9 (8.4-10.2) mg/dL 06/04/17 Range/Units 21:29 Sodium (137-145) mmol/L Potassium (3.6-5.0) mmol/L Chloride (98-107) mmol/L Carbon Dioxide (22-30) mmol/L BUN (7-17) mg/dL Creatinine (0.7-1.2) mg/dL Glucose (65-100) mg/dL Calcium 9.2 (8.4-10.2) mg/dL
[2017-06-05] MEDS ORDERED: NACL 0.9% 100 ML IV PRN (10:57)
--- NOTE | 2017-06-05 11:01 | Consultation ---
History of Present Illness - Reason for Consult Consult date: 06/05/17 end stage renal disease Requesting physician: SHIRAZ ALCANTAR - History of Present Illness 66 YO Female with MO, HTN, MELVI, ESRD on HD, Hyperparathyroidism, Breast Cancer S /P Mastectomy admitted directly to hospitalist service at the request of Dr. Singh. Pt underwent elective parathyroid surgery and found to have electrolyte abnormalities , and well as respiratory distress. Pt seen and evaluated and found to be in respiratory distress, and was subsequently intubated and placed on vent support. Pt unable to provide history. History taken from hospital staff and medical record. No reports of fever, chills, CP, Palpitations, NVD, or recent ill contacts. Past History Past Medical History: ESRD, hypertension, other (hyperparathyroidism) Past Surgical History: mastectomy, Other (Parathyroidectomy) Social history: single. denies: smoking, alcohol abuse, prescription drug abuse , IV drug use Family history: hypertension Medications and Allergies Allergies Allergy/AdvReac Type Severity Reaction Status Date / Time No Known Allergies Allergy Verified 06/01/17 16:40 Home Medications Medication Instructions Recorded Confirmed Last Taken Type Aspirin [Adult Low Dose Aspirin EC] 81 mg PO DAILY 06/01/17 06/04/17 06/02/17 History Cinacalcet HCl [Sensipar] 180 mg PO DAILY 06/01/17 06/01/17 06/03/17 History Furosemide [Lasix TAB] 80 mg PO QDAY 06/01/17 06/01/17 Unknown History Losartan [Cozaar] 100 mg PO QDAY 06/01/17 06/01/17 06/04/17 07:00 History Metoprolol [Lopressor TAB] 50 mg PO BID 06/01/17 06/01/17 06/04/17 07:00 History Sevelamer Carbonate [Renvela] 1,600 mg PO TIDWM 06/01/17 06/01/17 06/03/17 History Active Meds: Active Medications Al Hydrox/Mg Hydrox/Simethicone (Alum-Mag Hydrox-Simeth [id number]/5ml) 30 ml PO Q4H PRN PRN Reason: Indigestion Bisacodyl (Dulcolax) 10 mg ME QDAY PRN PRN Reason: constipation unrelieved by MOM Dexamethasone (Decadron) 10 mg IV Q8HR JANE Stop: 06/06/17 14:01 Last Admin: 06/05/17 06:41 Dose: 10 mg Epoetin Riccardo (Procrit) 10,000 unit IV KAYLA PRN PRN Reason: hemodialysis Famotidine (Pepcid) 20 mg IV BID JANE Last Admin: 06/04/17 21:55 Dose: 20 mg Hydrophilic Ointment (Vaseline Lip Therapy) 1 applic TP Q2HR PRN PRN Reason: Dry Lips Sodium Chloride (Nacl 0.9% 1000 Ml) 1,000 mls @ 100 mls/hr IV DIRECT JANE Last Admin: 06/05/17 06:41 Dose: 100 mls/hr Propofol (Diprivan 10 Mg/Ml) 1,000 mg in 100 mls @ 3.674 mls/hr IV TITR JANE; 5 MCG/KG/MIN PRN Reason: Protocol Last Admin: 06/04/17 16:50 Dose: 3 mcg/kg/min, 2.204 mls/hr Sodium Chloride (Nacl 0.9%) 100 mls @ 999 mls/hr IV KAYLA PRN PRN Reason: Hypotension Magnesium Hydroxide (Milk Of Magnesia) 30 ml PO Q4H PRN PRN Reason: Constipation Multi-Ingred Cream/Lotion/Oil/Oint (Artificial Tears Ophth Oint) 1 applic OU Q4HR PRN PRN Reason: Dry Eye(s) Review of Systems ROS unobtainable: due to endotracheal tube Exam - Vital Signs Vital signs: Vital Signs Temp Pulse Resp BP Pulse Ox 97.8 F 59 L 18 163/95 95 06/04/17 11:00 06/04/17 11:00 06/04/17 11:00 06/04/17 11:00 06/04/17 11:00 - Physical Exam Narrative exam: General appearance: Present: severe distress, obese - EENT Eyes: Present: PERRL ENT: hearing intact, clear oral mucosa - Neck Neck: Present: supple, normal ROM - Respiratory Respiratory effort: labored Respiratory: bilateral: diminished - Cardiovascular Heart Sounds: Present: S1 & S2. Absent: rub, click - Extremities Extremities: pulses symmetrical, No edema Extremity abnormal: edema Peripheral Pulses: within normal limits - Abdominal Female genitourinary: Present: normal - Integumentary Integumentary: Present: clear, warm, dry - Musculoskeletal Musculoskeletal: generalized weakness - Psychiatric Psychiatric: no intact judgment & insight, no memory intact, agitated - Neurologic Neurologic: CNII-XII intact, moves all extremities Results - Lab Results 06/04/17 00:01 06/04/17 21:29 Most recent lab results Calcium 8.9 mg/dL (8.4-10.2) 06/04/17 21:29 Assessment and Plan Impression: * ESRD * hypertension * s/p parathyroidectomy * Anemia in esrd * respiratory failure Plan: * hd today and q mwf * uf as tolerated with hd * high calcium bath with hd * epogen with hd * strict i/os * follow up sim andrews
--- NOTE | 2017-06-05 11:03 | XRay Report ---
AP CHEST :06/05/17 CLINICAL: Intubated.Follow up respiratory failure. COMPARISON:The previous day. FINDINGS: The endotracheal tube is in satisfactory position. Left IJ catheter tip is in the left brachycephalic vein. Stable cardiomegaly and central vascular congestion. The lungs are relatively clear. IMPRESSION: No change.Congestive heart failure but no pulmonary edema.
[2017-06-05] MEDS: PEPCID IV SCH ×2 (11:12→23:32)
[2017-06-05 11:47] LABS: Hematocrit 33.2 % (30.3-42.9); Hemoglobin 10.2 gm/dl (10.1-14.3); Mean Corpuscular HGB Conc 31 % (30-34); Mean Corpuscular Volume 75 fl (79-97); Platelet Count 258 K/mm3 (140-440); Red Blood Count 4.41 M/mm3 (3.65-5.03); Red Cell Distribution Width 18.2 % (13.2-15.2); White Blood Count 13.4 K/mm3 (4.5-11.0)
[2017-06-05 11:50] LABS: Mean Corpuscular Hemoglobin 23 pg (28-32)
[2017-06-05 12:14] LABS: Albumin 3.1 g/dL (3.9-5); Bilirubin,Total 0.2 mg/dL (0.1-1.2); Calcium 8.2 mg/dL (8.4-10.2); Chloride 100.1 mmol/L (98-107); Potassium 5.8 mmol/L (3.6-5.0); Total Protein 6.2 g/dL (6.3-8.2)
[2017-06-05] MEDS: PROCRIT IV PRN (13:03)
--- NOTE | 2017-06-05 13:39 | Consultation ---
History of Present Illness Consult date: 06/05/17 Requesting physician: STEFANIE HERNANDEZ Reason for consult: other (Post-op respiratory failure.) History of present illness: Morbidly obese 66 y/o female admitted to the ICU with post-op respiratory failure. Per report, patient was a difficult initial intubation. Subsequently extubated and then started desatting per nursing. Unsure if stridor was heard but patient was placed on steroids. Patient is awake and alert. Follows all commands. Currently undergoing HD. Past History Past Medical History: ESRD, hypertension, other (hyperparathyroidism) Past Surgical History: mastectomy, Other (Parathyroidectomy) Social history: single. denies: smoking, alcohol abuse, prescription drug abuse , IV drug use Family history: hypertension Medications and Allergies Allergies Allergy/AdvReac Type Severity Reaction Status Date / Time No Known Allergies Allergy Verified 06/01/17 16:40 Home Medications Medication Instructions Recorded Confirmed Last Taken Type Aspirin [Adult Low Dose Aspirin EC] 81 mg PO DAILY 06/01/17 06/04/17 06/02/17 History Cinacalcet HCl [Sensipar] 180 mg PO DAILY 06/01/17 06/01/17 06/03/17 History Furosemide [Lasix TAB] 80 mg PO QDAY 06/01/17 06/01/17 Unknown History Losartan [Cozaar] 100 mg PO QDAY 06/01/17 06/01/17 06/04/17 07:00 History Metoprolol [Lopressor TAB] 50 mg PO BID 06/01/17 06/01/17 06/04/17 07:00 History Sevelamer Carbonate [Renvela] 1,600 mg PO TIDWM 06/01/17 06/01/17 06/03/17 History Active Meds: Active Medications Al Hydrox/Mg Hydrox/Simethicone (Alum-Mag Hydrox-Simeth [phone]/5ml) 30 ml PO Q4H PRN PRN Reason: Indigestion Bisacodyl (Dulcolax) 10 mg WA QDAY PRN PRN Reason: constipation unrelieved by MOM Dexamethasone (Decadron) 10 mg IV Q8HR JANE Stop: 06/06/17 14:01 Last Admin: 06/05/17 06:41 Dose: 10 mg Epoetin Riccardo (Procrit) 10,000 unit IV KAYLA PRN PRN Reason: hemodialysis Last Admin: 06/05/17 13:03 Dose: 10,000 unit Famotidine (Pepcid) 10 mg IV BID JANE Hydrophilic Ointment (Vaseline Lip Therapy) 1 applic TP Q2HR PRN PRN Reason: Dry Lips Sodium Chloride (Nacl 0.9% 1000 Ml) 1,000 mls @ 100 mls/hr IV DIRECT JANE Last Admin: 06/05/17 06:41 Dose: 100 mls/hr Propofol (Diprivan 10 Mg/Ml) 1,000 mg in 100 mls @ 3.674 mls/hr IV TITR JANE; 5 MCG/KG/MIN PRN Reason: Protocol Last Admin: 06/04/17 16:50 Dose: 3 mcg/kg/min, 2.204 mls/hr Sodium Chloride (Nacl 0.9%) 100 mls @ 999 mls/hr IV KAYLA PRN PRN Reason: Hypotension Magnesium Hydroxide (Milk Of Magnesia) 30 ml PO Q4H PRN PRN Reason: Constipation Multi-Ingred Cream/Lotion/Oil/Oint (Artificial Tears Ophth Oint) 1 applic OU Q4HR PRN PRN Reason: Dry Eye(s) Review of Systems All systems: negative Physical Examination Vital signs: Vital Signs Temp Pulse Resp BP Pulse Ox 97.8 F 59 L 18 163/95 95 06/04/17 11:00 06/04/17 11:00 06/04/17 11:00 06/04/17 11:00 06/04/17 11:00 General appearance: no acute distress, alert, appears uncomfortable Eyes: non-icteric ENT: other (orally intubated. Calm on Diprovan) Neck: supple Effort: normal Ascultation: Bilateral: rales Percussion: Bilateral: not dull Cardiovascular: regular rate and rhythm Gastrointestinal: normoactive bowel sounds, soft, other (obese) Extremities: edema Musculoskeletal: no deformities normal mental status, non-focal exam mood appropriate, affect normal Results - Laboratory Findings CBC and BMP: 06/05/17 11:44 06/05/17 11:44 ABG POC ABG pH 7.393 (7.35-7.45) 06/05/17 03:31 POC ABG pCO2 42.2 (35-45) 06/05/17 03:31 POC ABG pO2 75 (80-105) L 06/05/17 03:31 POC ABG HCO3 25.7 06/05/17 03:31 POC ABG Total CO2 27 06/05/17 03:31 POC ABG O2 Sat 95 06/05/17 03:31 Abnormal lab findings: Abnormal Labs 06/04/17 06/04/17 06/04/17 00:01 12:50 13:55 WBC 11.4 H POC Hct MCV 76 L MCH 23 L RDW 18.5 H Seg Neuts % (Manual) 89.0 H Lymphocytes % (Manual) 6.0 L Seg Neutrophils # Man 10.1 H Lymphocytes # (Manual) 0.7 L POC ABG pH POC ABG pCO2 POC ABG pO2 POC Sodium POC Potassium Potassium 5.1 H 5.2 H POC BUN BUN 48 H Creatinine 6.2 H Glucose POC Glucose Calcium Total Protein Albumin PTH Pre-Incision PTH Post-Excision 06/04/17 06/04/17 06/04/17 13:55 16:10 16:16 WBC POC Hct 37 L MCV MCH RDW Seg Neuts % (Manual) Lymphocytes % (Manual) Seg Neutrophils # Man Lymphocytes # (Manual) POC ABG pH 7.306 L POC ABG pCO2 58.7 H POC ABG pO2 338 H POC Sodium 135 L POC Potassium 5.2 H Potassium POC BUN 44 H BUN Creatinine Glucose POC Glucose 183 H Calcium Total Protein Albumin PTH Pre-Incision 641.9 H PTH Post-Excision 154.7 H 06/04/17 06/04/17 06/04/17 16:22 20:44 21:29 WBC POC Hct MCV MCH RDW Seg Neuts % (Manual) Lymphocytes % (Manual) Seg Neutrophils # Man Lymphocytes # (Manual) POC ABG pH 7.484 H POC ABG pCO2 POC ABG pO2 POC Sodium 137 L POC Potassium 5.3 H Potassium 5.2 H POC BUN 45 H BUN 51 H Creatinine 6.5 H Glucose 119 H POC Glucose 176 H Calcium Total Protein Albumin PTH Pre-Incision PTH Post-Excision 06/05/17 06/05/17 06/05/17 03:20 03:31 11:44 WBC 13.4 H POC Hct MCV 75 L MCH 23 L RDW 18.2 H Seg Neuts % (Manual) Lymphocytes % (Manual) Seg Neutrophils # Man Lymphocytes # (Manual) POC ABG pH POC ABG pCO2 POC ABG pO2 41 L 75 L POC Sodium POC Potassium Potassium POC BUN BUN Creatinine Glucose POC Glucose Calcium Total Protein Albumin PTH Pre-Incision PTH Post-Excision 06/05/17 11:44 WBC POC Hct MCV MCH RDW Seg Neuts % (Manual) Lymphocytes % (Manual) Seg Neutrophils # Man Lymphocytes # (Manual) POC ABG pH POC ABG pCO2 POC ABG pO2 POC Sodium POC Potassium Potassium 5.8 H POC BUN BUN 56 H Creatinine 7.0 H Glucose 111 H POC Glucose Calcium 8.2 L Total Protein 6.2 L Albumin 3.1 L PTH Pre-Incision PTH Post-Excision - Diagnostic Findings Chest x-ray: image reviewed (Cardiomegaly with pulmonary edema) Assessment and Plan 66 y/o female with post-op respiratory failure, likely from pulmonary edema and possible airway edema with end stage renal disease. 1. Agree with HD 2. Agree with steroid use, at least through tomorrow 3. Daily cuff leaks 4. hopeful extubation tomorrow, early CCT 31 minutes.
[2017-06-05] MEDS: MORPHINE IV PRN (23:31)
[2017-06-06] MEDS: DECADRON IV SCH ×3 (05:41→21:50)
[2017-06-06] MEDS: DIPRIVAN 10 MG/ML 1,000 MG/100 ML BOTTLE IV SCH (05:42)
[2017-06-06] MEDS: NACL 0.9% 1000 ML 1,000 ML IV SCH (05:44)
--- NOTE | 2017-06-06 06:15 | Progress Note ---
Assessment and Plan 66 y/o female with post-op respiratory failure, likely from pulmonary edema and possible airway edema with end stage renal disease. 1. Daily cuff leaks. Will place order for RT to perform. 2. Steroids end today. 3. CXR still consistent with volume overload. Does not appear to make any urine. Renal to assess and see if HD is needed again today. 4. If patient has significant cuff leak, could consider extubation. Patient was a difficult intubation routinely so must proceed with caution. would prefer to extubate early in the day in the event that re-intubation is needed. Will also alert anesthesia as they would need to be the ones to re-intubate if issues. CCT 31 minutes. Subjective Date of service: 06/06/17 Principal diagnosis: Inadequate ventilation Interval history: No acute events overnight. Had HD on yesterday but not sure how much was removed. CXR this am remains consistent with volume overload. RT in ED. Patient asleep on Diprovan 10, comfortable. Vent at FiO2 40% and PEEP of 5. Sat is 98%. Remainder is negative. Size 6.5 ET tube present Objective Vital Signs - 12hr 06/05/17 06/05/17 06/05/17 19:00 19:24 19:29 Temperature Pulse Rate 69 69 Pulse Rate [ 69 From Monitor] Pulse Rate [ 69 Left Dorsalis Pedis] Pulse Rate [ 69 Left Posterior Tibial] Pulse Rate [ 69 Left Radial] Pulse Rate [ 69 Right Dorsalis Pedis] Pulse Rate [ 69 Right Radial] Respiratory 19 17 Rate Blood Pressure 137/62 137/62 O2 Sat by Pulse 98 98 98 Oximetry 06/05/17 06/05/17 06/05/17 20:00 20:25 21:00 Temperature 97.9 F Pulse Rate 66 68 Pulse Rate [ From Monitor] Pulse Rate [ Left Dorsalis Pedis] Pulse Rate [ Left Posterior Tibial] Pulse Rate [ Left Radial] Pulse Rate [ Right Dorsalis Pedis] Pulse Rate [ Right Radial] Respiratory 16 17 Rate Blood Pressure 142/70 123/59 O2 Sat by Pulse 98 98 Oximetry 06/05/17 06/05/17 06/05/17 21:34 22:00 23:00 Temperature Pulse Rate 70 63 61 Pulse Rate [ From Monitor] Pulse Rate [ Left Dorsalis Pedis] Pulse Rate [ Left Posterior Tibial] Pulse Rate [ Left Radial] Pulse Rate [ Right Dorsalis Pedis] Pulse Rate [ Right Radial] Respiratory 18 16 16 Rate Blood Pressure 121/60 129/53 120/58 O2 Sat by Pulse 98 98 98 Oximetry 06/05/17 06/06/17 06/06/17 23:31 00:00 00:30 Temperature 98.1 F Pulse Rate 64 Pulse Rate [ From Monitor] Pulse Rate [ Left Dorsalis Pedis] Pulse Rate [ Left Posterior Tibial] Pulse Rate [ Left Radial] Pulse Rate [ Right Dorsalis Pedis] Pulse Rate [ Right Radial] Respiratory 16 18 Rate Blood Pressure 134/68 O2 Sat by Pulse 98 Oximetry 06/06/17 06/06/17 06/06/17 01:00 02:00 03:00 Temperature Pulse Rate 65 56 L 61 Pulse Rate [ From Monitor] Pulse Rate [ Left Dorsalis Pedis] Pulse Rate [ Left Posterior Tibial] Pulse Rate [ Left Radial] Pulse Rate [ Right Dorsalis Pedis] Pulse Rate [ Right Radial] Respiratory 16 16 16 Rate Blood Pressure 136/67 152/71 158/70 O2 Sat by Pulse 96 97 98 Oximetry 06/06/17 06/06/17 06/06/17 03:26 04:00 05:00 Temperature 98 F Pulse Rate 57 L 65 Pulse Rate [ From Monitor] Pulse Rate [ Left Dorsalis Pedis] Pulse Rate [ Left Posterior Tibial] Pulse Rate [ Left Radial] Pulse Rate [ Right Dorsalis Pedis] Pulse Rate [ Right Radial] Respiratory 16 20 Rate Blood Pressure 158/75 147/75 O2 Sat by Pulse 98 98 Oximetry 06/06/17 06/06/17 05:42 05:45 Temperature Pulse Rate Pulse Rate [ From Monitor] Pulse Rate [ Left Dorsalis Pedis] Pulse Rate [ Left Posterior Tibial] Pulse Rate [ Left Radial] Pulse Rate [ Right Dorsalis Pedis] Pulse Rate [ Right Radial] Respiratory 18 18 Rate Blood Pressure O2 Sat by Pulse Oximetry Constitutional: no acute distress, alert, appears uncomfortable Eyes: non-icteric ENT: other (orally intubated. Calm on Diprovan) Neck: supple Effort: normal Ascultation: Bilateral: rales Percussion: Bilateral: not dull Cardiovascular: regular rate and rhythm Gastrointestinal: normoactive bowel sounds, soft, other (obese) Extremities: edema Neurologic: normal mental status, non-focal exam Psychiatric: mood appropriate, affect normal CBC and BMP: 06/05/17 11:44 06/05/17 11:44 ABG, PT/INR, D-dimer: ABG POC ABG pH 7.393 (7.35-7.45) 06/05/17 03:31 POC ABG pCO2 42.2 (35-45) 06/05/17 03:31 POC ABG pO2 75 (80-105) L 06/05/17 03:31 POC ABG HCO3 25.7 06/05/17 03:31 POC ABG Total CO2 27 06/05/17 03:31 POC ABG O2 Sat 95 06/05/17 03:31 Abnormal lab findings: Abnormal Labs 06/04/17 06/04/17 06/04/17 00:01 12:50 13:55 WBC 11.4 H POC Hct MCV 76 L MCH 23 L RDW 18.5 H Seg Neuts % (Manual) 89.0 H Lymphocytes % (Manual) 6.0 L Seg Neutrophils # Man 10.1 H Lymphocytes # (Manual) 0.7 L POC ABG pH POC ABG pCO2 POC ABG pO2 POC Sodium POC Potassium Potassium 5.1 H 5.2 H POC BUN BUN 48 H Creatinine 6.2 H Glucose POC Glucose Calcium Total Protein Albumin PTH Pre-Incision PTH Post-Excision 06/04/17 06/04/17 06/04/17 13:55 16:10 16:16 WBC POC Hct 37 L MCV MCH RDW Seg Neuts % (Manual) Lymphocytes % (Manual) Seg Neutrophils # Man Lymphocytes # (Manual) POC ABG pH 7.306 L POC ABG pCO2 58.7 H POC ABG pO2 338 H POC Sodium 135 L POC Potassium 5.2 H Potassium POC BUN 44 H BUN Creatinine Glucose POC Glucose 183 H Calcium Total Protein Albumin PTH Pre-Incision 641.9 H PTH Post-Excision 154.7 H 06/04/17 06/04/17 06/04/17 16:22 20:44 21:29 WBC POC Hct MCV MCH RDW Seg Neuts % (Manual) Lymphocytes % (Manual) Seg Neutrophils # Man Lymphocytes # (Manual) POC ABG pH 7.484 H POC ABG pCO2 POC ABG pO2 POC Sodium 137 L POC Potassium 5.3 H Potassium 5.2 H POC BUN 45 H BUN 51 H Creatinine 6.5 H Glucose 119 H POC Glucose 176 H Calcium Total Protein Albumin PTH Pre-Incision PTH Post-Excision 06/05/17 06/05/17 06/05/17 03:20 03:31 11:44 WBC 13.4 H POC Hct MCV 75 L MCH 23 L RDW 18.2 H Seg Neuts % (Manual) Lymphocytes % (Manual) Seg Neutrophils # Man Lymphocytes # (Manual) POC ABG pH POC ABG pCO2 POC ABG pO2 41 L 75 L POC Sodium POC Potassium Potassium POC BUN BUN Creatinine Glucose POC Glucose Calcium Total Protein Albumin PTH Pre-Incision PTH Post-Excision 06/05/17 11:44 WBC POC Hct MCV MCH RDW Seg Neuts % (Manual) Lymphocytes % (Manual) Seg Neutrophils # Man Lymphocytes # (Manual) POC ABG pH POC ABG pCO2 POC ABG pO2 POC Sodium POC Potassium Potassium 5.8 H POC BUN BUN 56 H Creatinine 7.0 H Glucose 111 H POC Glucose Calcium 8.2 L Total Protein 6.2 L Albumin 3.1 L PTH Pre-Incision PTH Post-Excision
[2017-06-06 06:56] LABS: ISTAT Base Excess 5; ISTAT PCO2 42.9 (35-45); ISTAT PH 7.438 (7.35-7.45); ISTAT PO2 116 (80-105); ISTAT SO2 99; ISTAT TCO2 30
[2017-06-06 07:32] LABS: Albumin 3.3 g/dL (3.9-5); Albumin/Globulin Ratio 1.4 %; BUN/Creatinine Ratio 6.53; Bilirubin,Total 0.2 mg/dL (0.1-1.2); Calcium 7.9 mg/dL (8.4-10.2); Chloride 100.3 mmol/L (98-107); Magnesium 1.9 mg/dL (1.7-2.3); Potassium 4.9 mmol/L (3.6-5.0); Total Protein 5.7 g/dL (6.3-8.2)
--- NOTE | 2017-06-06 08:59 | Progress Note ---
Assessment and Plan Assessment and plan: --Acute hypoxic respiratory failure On ventilatory support, continue nebulizers supportive care wean as tolerated and extubate, pulmonary following --Status post subtotal parathyroidectomy Continue postop care per surgery --End-stage renal disease on hemodialysis Continue HD per schedule, nephrology following --Hyperkalemia; corrected --Hypertension ;moderate control ,continue current antihypertensives and when necessary medications --History of breast cancer status post mastectomy stable --Morbid obesity with BMI of 47.8, Patient would benefit by outpatient bariatric surgical evaluation for weight reduction program and medically stable --Full CODE STATUS Critical care time 31 minutes History Interval history: Patient seen and examined this morning medical records reviewed Remains intubated on ventilatory support, awake, responding to simple questions Vital signs reviewed Hospitalist Physical - Constitutional Vitals: Temp Pulse Resp BP Pulse Ox 98 F 68 20 151/75 100 06/06/17 08:00 06/06/17 08:00 06/06/17 08:00 06/06/17 08:00 06/06/17 08:00 General appearance: Present: no acute distress, obese (morbidly obese) - EENT Eyes: Present: PERRL, EOM intact - Neck Neck: Present: supple, normal ROM - Respiratory Respiratory effort: normal Respiratory: bilateral: diminished, rales, negative: rhonchi, wheezing - Cardiovascular Rhythm: regular Heart Sounds: Present: S1 & S2 - Extremities Extremities: no ischemia, No edema - Abdominal General gastrointestinal: soft, non-tender, non-distended, normal bowel sounds - Integumentary Integumentary: Present: clear, warm - Psychiatric Psychiatric: appropriate mood/affect, cooperative - Neurologic Neurologic: CNII-XII intact, moves all extremities Results - Labs CBC & Chem 7: 06/05/17 11:44 06/06/17 07:13 Labs: Laboratory Last Values WBC 13.4 K/mm3 (4.5-11.0) H 06/05/17 11:44 RBC 4.41 M/mm3 (3.65-5.03) 06/05/17 11:44 Hgb 10.2 gm/dl (10.1-14.3) 06/05/17 11:44 POC Hgb 14.3 (12-17) 06/04/17 16:22 Hct 33.2 % (30.3-42.9) 06/05/17 11:44 POC Hct 42 (38-51) 06/04/17 16:22 MCV 75 fl (79-97) L 06/05/17 11:44 MCH 23 pg (28-32) L 06/05/17 11:44 MCHC 31 % (30-34) 06/05/17 11:44 RDW 18.2 % (13.2-15.2) H 06/05/17 11:44 Plt Count 258 K/mm3 (140-440) 06/05/17 11:44 Add Manual Diff Complete 06/04/17 00:01 Total Counted 100 06/04/17 00:01 Seg Neutrophils % [employer]otive In[employer] 06/04/17 00:01 Seg Neuts % (Manual) 89.0 % (40.0-70.0) H 06/04/17 00:01 Band Neutrophils % 4.0 % 06/04/17 00:01 Lymphocytes % (Manual) 6.0 % (13.4-35.0) L 06/04/17 00:01 Reactive Lymphs % (Man) 0 % 06/04/17 00:01 Monocytes % (Manual) 0 % (0.0-7.3) 06/04/17 00:01 Eosinophils % (Manual) 0 % (0.0-4.3) 06/04/17 00:01 Basophils % (Manual) 1.0 % (0.0-1.8) 06/04/17 00:01 Metamyelocytes % 0 % 06/04/17 00:01 Myelocytes % 0 % 06/04/17 00:01 Promyelocytes % 0 % 06/04/17 00:01 Blast Cells % 0 % 06/04/17 00:01 Nucleated RBC % Not Reportable 06/04/17 00:01 Seg Neutrophils # Man 10.1 K/mm3 (1.8-7.7) H 06/04/17 00:01 Band Neutrophils # 0.5 K/mm3 06/04/17 00:01 Lymphocytes # (Manual) 0.7 K/mm3 (1.2-5.4) L 06/04/17 00:01 Abs React Lymphs (Man) 0.0 K/mm3 06/04/17 00:01 Monocytes # (Manual) 0.0 K/mm3 (0.0-0.8) 06/04/17 00:01 Eosinophils # (Manual) 0.0 K/mm3 (0.0-0.4) 06/04/17 00:01 Basophils # (Manual) 0.1 K/mm3 (0.0-0.1) 06/04/17 00:01 Metamyelocytes # 0.0 K/mm3 06/04/17 00:01 Myelocytes # 0.0 K/mm3 06/04/17 00:01 Promyelocytes # 0.0 K/mm3 06/04/17 00:01 Blast Cells # 0.0 K/mm3 06/04/17 00:01 WBC Morphology Not Reportable 06/04/17 00:01 Hypersegmented Neuts Not Reportable 06/04/17 00:01 Hyposegmented Neuts Not Reportable 06/04/17 00:01 Hypogranular Neuts Not Reportable 06/04/17 00:01 Smudge Cells Not Reportable 06/04/17 00:01 Toxic Granulation Not Reportable 06/04/17 00:01 Toxic Vacuolation Not Reportable 06/04/17 00:01 Dohle Bodies Not Reportable 06/04/17 00:01 Pelger-Huet Anomaly Not Reportable 06/04/17 00:01 Sunita Rods Not Reportable 06/04/17 00:01 Platelet Estimate Appears normal 06/04/17 00:01 Clumped Platelets Not Reportable 06/04/17 00:01 Plt Clumps, EDTA Not Reportable 06/04/17 00:01 Large Platelets Not Reportable 06/04/17 00:01 Giant Platelets Not Reportable 06/04/17 00:01 Platelet Satelliting Not Reportable 06/04/17 00:01 Plt Morphology Comment Not Reportable 06/04/17 00:01 RBC Morphology Not Reportable 06/04/17 00:01 Dimorphic RBCs Not Reportable 06/04/17 00:01 Polychromasia Not Reportable 06/04/17 00:01 Hypochromasia 1+ 06/04/17 00:01 Poikilocytosis Not Reportable 06/04/17 00:01 Anisocytosis Few 06/04/17 00:01 Microcytosis Not Reportable 06/04/17 00:01 Macrocytosis Not Reportable 06/04/17 00:01 Spherocytes Not Reportable 06/04/17 00:01 Pappenheimer Bodies Not Reportable 06/04/17 00:01 Sickle Cells Not Reportable 06/04/17 00:01 Target Cells Rare 06/04/17 00:01 Tear Drop Cells Not Reportable 06/04/17 00:01 Ovalocytes 1+ 06/04/17 00:01 Helmet Cells Not Reportable 06/04/17 00:01 [place] Bodies Not Reportable 06/04/17 00:01 [place] Rings Not Reportable 06/04/17 00:01 Donaldo Cells Not Reportable 06/04/17 00:01 Bite Cells Not Reportable 06/04/17 00:01 Crenated Cell Not Reportable 06/04/17 00:01 Elliptocytes Not Reportable 06/04/17 00:01 Acanthocytes (Spur) Not Reportable 06/04/17 00:01 Rouleaux Not Reportable 06/04/17 00:01 Hemoglobin C Crystals Not Reportable 06/04/17 00:01 Schistocytes Not Reportable 06/04/17 00:01 Malaria parasites Not Reportable 06/04/17 00:01 Williams Bodies Not Reportable 06/04/17 00:01 Hem Pathologist Commnt No 06/04/17 00:01 POC ABG pH 7.438 (7.35-7.45) 06/06/17 05:07 POC ABG pCO2 42.9 (35-45) 06/06/17 05:07 POC ABG pO2 116 (80-105) H 06/06/17 05:07 POC ABG HCO3 29.0 06/06/17 05:07 POC ABG Total CO2 30 06/06/17 05:07 POC ABG O2 Sat 99 06/06/17 05:07 POC ABG Base Excess 5 06/06/17 05:07 POC Sodium 137 mmol/L (138-146) L 06/04/17 16:22 POC Potassium 5.3 (3.5-4.9) H 06/04/17 16:22 POC Chloride 102 (98-109) 06/04/17 16:22 FiO2 40 % 06/06/17 05:07 Sodium 141 mmol/L (137-145) 06/06/17 07:13 Potassium 4.9 mmol/L (3.6-5.0) 06/06/17 07:13 Chloride 100.3 mmol/L (98-107) 06/06/17 07:13 Carbon Dioxide 26 mmol/L (22-30) 06/06/17 07:13 Anion Gap 20 mmol/L 06/06/17 07:13 POC BUN 45 mg/dl (8-26) H 06/04/17 16:22 BUN 32 mg/dL (7-17) H 06/06/17 07:13 Creatinine 4.9 mg/dL (0.7-1.2) H 06/06/17 07:13 Estimated GFR 11 ml/min 06/06/17 07:13 BUN/Creatinine Ratio 6.53 % 06/06/17 07:13 Glucose 115 mg/dL (65-100) H 06/06/17 07:13 POC Glucose 176 (70-105) H 06/04/17 16:22 Calcium 7.9 mg/dL (8.4-10.2) L 06/06/17 07:13 Magnesium 1.90 mg/dL (1.7-2.3) 06/06/17 07:13 Total Bilirubin 0.20 mg/dL (0.1-1.2) 06/06/17 07:13 AST 14 units/L (5-40) 06/06/17 07:13 ALT 15 units/L (7-56) 06/06/17 07:13 Alkaline Phosphatase 79 units/L (35-129) 06/06/17 07:13 Total Protein 5.7 g/dL (6.3-8.2) L 06/06/17 07:13 Albumin 3.3 g/dL (3.9-5) L 06/06/17 07:13 Albumin/Globulin Ratio 1.4 % 06/06/17 07:13 PTH Pre-Incision 641.9 (11.1-79.5) H 06/04/17 13:55 PTH Post-Excision 154.7 (11.1-79.5) H 06/04/17 13:55 PTH Intact Intraop 5 m Not Reportable 06/04/17 13:55
--- NOTE | 2017-06-06 09:17 | Progress Note ---
Assessment and Plan D/w pulmonary, hopeful extubation tomorrow. Possible dialysis today. Subjective Date of service: 06/06/17 Patient Reports: Positive: no new complaints Objective Vital Signs - 12hr 06/05/17 06/05/17 06/05/17 21:34 22:00 23:00 Temperature Pulse Rate 70 63 61 Pulse Rate [ From Monitor] Respiratory 18 16 16 Rate Blood Pressure 121/60 129/53 120/58 O2 Sat by Pulse 98 98 98 Oximetry 06/05/17 06/06/17 06/06/17 23:31 00:00 00:30 Temperature 98.1 F Pulse Rate 64 Pulse Rate [ From Monitor] Respiratory 16 18 Rate Blood Pressure 134/68 O2 Sat by Pulse 98 Oximetry 06/06/17 06/06/17 06/06/17 01:00 02:00 03:00 Temperature Pulse Rate 65 56 L 61 Pulse Rate [ From Monitor] Respiratory 16 16 16 Rate Blood Pressure 136/67 152/71 158/70 O2 Sat by Pulse 96 97 98 Oximetry 06/06/17 06/06/17 06/06/17 03:26 04:00 05:00 Temperature 98 F Pulse Rate 57 L 65 Pulse Rate [ From Monitor] Respiratory 16 20 Rate Blood Pressure 158/75 147/75 O2 Sat by Pulse 98 98 Oximetry 06/06/17 06/06/17 06/06/17 05:42 05:45 06:00 Temperature Pulse Rate 58 L Pulse Rate [ From Monitor] Respiratory 18 18 16 Rate Blood Pressure 150/71 O2 Sat by Pulse 98 Oximetry 06/06/17 06/06/17 06/06/17 07:00 07:40 08:00 Temperature 98 F Pulse Rate 60 65 68 Pulse Rate [ 68 From Monitor] Respiratory 16 20 20 Rate Blood Pressure 147/69 151/75 O2 Sat by Pulse 99 96 100 Oximetry 06/06/17 09:00 Temperature Pulse Rate 68 Pulse Rate [ From Monitor] Respiratory 18 Rate Blood Pressure 166/76 O2 Sat by Pulse 99 Oximetry - General physical appearance well developed - Eyes PERRL, normal occular movement - Neck trachea midline (incision clean) - Respiratory normal expansion, normal respiratory effort, clear to percussion, clear to auscultation - Abdomen [id number] 4, [id number] 6, [id number] 8 - Labs 06/05/17 11:44 06/06/17 07:13 Diabetes panel 06/05/17 06/06/17 Range/Units 11:44 07:13 Sodium 138 141 (137-145) mmol/L Potassium 5.8 H 4.9 (3.6-5.0) mmol/L Chloride 100.1 100.3 (98-107) mmol/L Carbon Dioxide 22 26 (22-30) mmol/L BUN 56 H 32 H (7-17) mg/dL Creatinine 7.0 H 4.9 H (0.7-1.2) mg/dL Glucose 111 H 115 H (65-100) mg/dL Calcium 8.2 L 7.9 L (8.4-10.2) mg/dL AST 26 14 (5-40) units/L ALT 26 15 (7-56) units/L Alkaline Phosphatase 81 79 (35-129) units/L Total Protein 6.2 L 5.7 L (6.3-8.2) g/dL Albumin 3.1 L 3.3 L (3.9-5) g/dL Calcium panel 06/05/17 06/06/17 Range/Units 11:44 07:13 Calcium 8.2 L 7.9 L (8.4-10.2) mg/dL Albumin 3.1 L 3.3 L (3.9-5) g/dL Pituitary panel 06/05/17 06/06/17 Range/Units 11:44 07:13 Sodium 138 141 (137-145) mmol/L Potassium 5.8 H 4.9 (3.6-5.0) mmol/L Chloride 100.1 100.3 (98-107) mmol/L Carbon Dioxide 22 26 (22-30) mmol/L BUN 56 H 32 H (7-17) mg/dL Creatinine 7.0 H 4.9 H (0.7-1.2) mg/dL Glucose 111 H 115 H (65-100) mg/dL Calcium 8.2 L 7.9 L (8.4-10.2) mg/dL Adrenal panel 06/05/17 06/06/17 Range/Units 11:44 07:13 Sodium 138 141 (137-145) mmol/L Potassium 5.8 H 4.9 (3.6-5.0) mmol/L Chloride 100.1 100.3 (98-107) mmol/L Carbon Dioxide 22 26 (22-30) mmol/L BUN 56 H 32 H (7-17) mg/dL Creatinine 7.0 H 4.9 H (0.7-1.2) mg/dL Glucose 111 H 115 H (65-100) mg/dL Calcium 8.2 L 7.9 L (8.4-10.2) mg/dL Total Bilirubin 0.20 0.20 (0.1-1.2) mg/dL AST 26 14 (5-40) units/L ALT 26 15 (7-56) units/L Alkaline Phosphatase 81 79 (35-129) units/L Total Protein 6.2 L 5.7 L (6.3-8.2) g/dL Albumin 3.1 L 3.3 L (3.9-5) g/dL
--- NOTE | 2017-06-06 09:29 | XRay Report ---
AP CHEST: HISTORY: Followup respiratory failure The endotracheal tube remains in adequate position. Mild increase in pulmonary venous congestion is suspected. Cardiomegaly is stable. A small left pleural effusion is also suspected. No pneumothorax. IMPRESSION: Mild increase in congestive changes.
[2017-06-06] MEDS: PEPCID IV SCH ×2 (10:00→21:51)
[2017-06-06 10:18] LABS: Phosphorous 4.5 mg/dL (2.5-4.5)
--- NOTE | 2017-06-06 12:25 | Progress Note ---
Assessment and Plan Impression: * ESRD * hypertension * s/p parathyroidectomy * Anemia in esrd * respiratory failure Plan: * hd q mwf * add tums and calcitriol * iv calcium today * uf as tolerated with hd * high calcium bath with hd * epogen with hd * strict i/os * follow up sim darryl Subjective Date of service: 06/06/17 Principal diagnosis: Inadequate ventilation Interval history: no new complaints Objective - Exam Narrative Exam: General appearance: Present: severe distress, obese - EENT Eyes: Present: PERRL ENT: hearing intact, clear oral mucosa - Neck Neck: Present: supple, normal ROM - Respiratory Respiratory effort: labored Respiratory: bilateral: diminished - Cardiovascular Heart Sounds: Present: S1 & S2. Absent: rub, click - Extremities Extremities: pulses symmetrical, No edema Extremity abnormal: edema Peripheral Pulses: within normal limits - Abdominal Female genitourinary: Present: normal - Integumentary Integumentary: Present: clear, warm, dry - Musculoskeletal Musculoskeletal: generalized weakness - Psychiatric Psychiatric: no intact judgment & insight, no memory intact, agitated - Neurologic Neurologic: CNII-XII intact, moves all extremities - Vital Signs Vital signs: Vital Signs - 12hr 06/06/17 06/06/17 06/06/17 00:30 01:00 02:00 Temperature 98.1 F Pulse Rate 65 56 L Pulse Rate [ From Monitor] Respiratory 16 16 Rate Blood Pressure 136/67 152/71 O2 Sat by Pulse 96 97 Oximetry 06/06/17 06/06/17 06/06/17 03:00 03:26 04:00 Temperature 98 F Pulse Rate 61 57 L Pulse Rate [ From Monitor] Respiratory 16 16 Rate Blood Pressure 158/70 158/75 O2 Sat by Pulse 98 98 Oximetry 06/06/17 06/06/17 06/06/17 05:00 05:42 05:45 Temperature Pulse Rate 65 Pulse Rate [ From Monitor] Respiratory 20 18 18 Rate Blood Pressure 147/75 O2 Sat by Pulse 98 Oximetry 06/06/17 06/06/17 06/06/17 06:00 07:00 07:40 Temperature Pulse Rate 58 L 60 65 Pulse Rate [ From Monitor] Respiratory 16 16 20 Rate Blood Pressure 150/71 147/69 O2 Sat by Pulse 98 99 96 Oximetry 06/06/17 06/06/17 06/06/17 08:00 09:00 10:00 Temperature 98 F 97.8 F Pulse Rate 68 68 Pulse Rate [ 68 From Monitor] Respiratory 20 18 Rate Blood Pressure 151/75 166/76 O2 Sat by Pulse 100 99 Oximetry 06/06/17 11:00 Temperature Pulse Rate 70 Pulse Rate [ From Monitor] Respiratory 24 Rate Blood Pressure O2 Sat by Pulse 95 Oximetry - Lab 06/05/17 11:44 06/06/17 07:13 Most recent lab results Calcium 7.9 mg/dL (8.4-10.2) L 06/06/17 07:13 Phosphorus 4.50 mg/dL (2.5-4.5) 06/06/17 07:13 Magnesium 1.90 mg/dL (1.7-2.3) 06/06/17 07:13
[2017-06-06] MEDS ORDERED: CALCIUM GLUCONATE 2,000 MG in NACL 0.9% 100 ML IV ONE (12:27)
[2017-06-06] MEDS: TUMS PO SCH ×2 (14:21→21:18)
[2017-06-06] MEDS: MORPHINE IV PRN (21:48)
[2017-06-07 05:36] LABS: ISTAT Base Excess 2; ISTAT HCO3 26.4; ISTAT PCO2 39.8 (35-45); ISTAT PO2 137 (80-105); ISTAT SO2 99; ISTAT TCO2 28
[2017-06-07 05:56] LABS: Hematocrit 32.5 % (30.3-42.9); Hemoglobin 10.5 gm/dl (10.1-14.3); Mean Corpuscular HGB Conc 32 % (30-34); Mean Corpuscular Hemoglobin 24 pg (28-32); Mean Corpuscular Volume 75 fl (79-97); Platelet Count 226 K/mm3 (140-440); Red Blood Count 4.34 M/mm3 (3.65-5.03); Red Cell Distribution Width 18.7 % (13.2-15.2); White Blood Count 9.4 K/mm3 (4.5-11.0)
[2017-06-07 06:08] LABS: BUN/Creatinine Ratio 8.38; Chloride 98.5 mmol/L (98-107); Potassium 5.4 mmol/L (3.6-5.0)
--- NOTE | 2017-06-07 08:26 | XRay Report ---
AP CHEST: HISTORY: Followup respiratory failure Lines and support devices remain in the same position. Cardiomegaly is stable. Pulmonary venous congestion has decreased by 50% or greater. Small left pleural effusion is again suspected and has decreased. No pneumothorax. IMPRESSION: Mild improvement in congestive changes and small left pleural effusion since yesterday's examination.
[2017-06-07] MEDS: TUMS PO SCH ×2 (08:33→14:07)
[2017-06-07] MEDS: PEPCID IV SCH ×2 (09:35→23:29)
--- NOTE | 2017-06-07 09:55 | Progress Note ---
Assessment and Plan Impression: * ESRD * hypertension * s/p parathyroidectomy * Anemia in esrd * respiratory failure Plan: * hd q mwf * added tums and calcitriol * iv calcium prn * uf as tolerated with hd * high calcium bath with hd * epogen with hd * strict i/os * follow up am darryl Subjective Date of service: 06/07/17 Principal diagnosis: Inadequate ventilation Interval history: no new complaints Objective - Exam Narrative Exam: General appearance: Present: severe distress, obese - EENT Eyes: Present: PERRL ENT: hearing intact, clear oral mucosa - Neck Neck: Present: supple, normal ROM - Respiratory Respiratory effort: labored Respiratory: bilateral: diminished - Cardiovascular Heart Sounds: Present: S1 & S2. Absent: rub, click - Extremities Extremities: pulses symmetrical, No edema Extremity abnormal: edema Peripheral Pulses: within normal limits - Abdominal Female genitourinary: Present: normal - Integumentary Integumentary: Present: clear, warm, dry - Musculoskeletal Musculoskeletal: generalized weakness - Psychiatric Psychiatric: no intact judgment & insight, no memory intact, agitated - Neurologic Neurologic: CNII-XII intact, moves all extremities - Vital Signs Vital signs: Vital Signs - 12hr 06/06/17 06/06/17 06/06/17 22:00 22:42 23:00 Temperature Pulse Rate 58 L 56 L 52 L Pulse Rate [ From Monitor] Respiratory 16 16 16 Rate Blood Pressure 135/76 135/76 140/58 O2 Sat by Pulse 100 99 99 Oximetry 06/06/17 06/06/17 06/07/17 23:18 23:21 00:00 Temperature 98.4 F Pulse Rate 52 L 54 L Pulse Rate [ From Monitor] Respiratory 16 Rate Blood Pressure 140/58 155/74 O2 Sat by Pulse 99 99 Oximetry 06/07/17 06/07/17 06/07/17 01:00 02:00 03:00 Temperature Pulse Rate 53 L 61 63 Pulse Rate [ From Monitor] Respiratory 16 16 17 Rate Blood Pressure 164/67 167/72 151/67 O2 Sat by Pulse 99 98 98 Oximetry 06/07/17 06/07/17 06/07/17 03:36 03:48 04:00 Temperature 97.9 F Pulse Rate 63 54 L Pulse Rate [ From Monitor] Respiratory 16 Rate Blood Pressure 160/70 156/65 O2 Sat by Pulse 98 97 Oximetry 06/07/17 06/07/17 06/07/17 05:00 06:00 07:00 Temperature Pulse Rate 53 L 59 L 65 Pulse Rate [ From Monitor] Respiratory 16 15 20 Rate Blood Pressure 164/76 159/84 169/69 O2 Sat by Pulse 98 97 94 Oximetry 06/07/17 06/07/17 06/07/17 08:00 09:13 09:26 Temperature 98.4 F 100 F H Pulse Rate 66 67 Pulse Rate [ 66 From Monitor] Respiratory 21 19 Rate Blood Pressure 162/68 154/70 O2 Sat by Pulse 99 97 Oximetry 06/07/17 06/07/17 09:28 09:38 Temperature Pulse Rate 70 69 Pulse Rate [ From Monitor] Respiratory 20 Rate Blood Pressure 159/65 159/65 O2 Sat by Pulse 98 98 Oximetry - Lab 06/07/17 05:21 06/07/17 05:21 Most recent lab results Calcium 8.0 mg/dL (8.4-10.2) L 06/07/17 05:21 Phosphorus 4.50 mg/dL (2.5-4.5) 06/06/17 07:13 Magnesium 1.90 mg/dL (1.7-2.3) 06/06/17 07:13
[2017-06-07] MEDS: ROCALTROL PO SCH (10:00)
--- NOTE | 2017-06-07 10:36 | Progress Note ---
Assessment and Plan Assessment and plan: 66-year-old female patient significant past medical history of hypertension and obstructive sleep apnea instability disease on hemodialysis this cancer status post mastectomy underwent elective total parathyroidectomy and was admitted to ICU with respiratory failure requiring intubation --Acute hypoxic respiratory failure; On ventilatory support, nebulizers supportive care wean as tolerated and extubate, pulmonary following --Status post subtotal parathyroidectomy, Continue postop care per surgery --End-stage renal disease on hemodialysis, HD per schedule, nephrology following --Hyperkalemia;HD today --Hypertension ;moderate control ,continue current antihypertensives and PRN medications --History of breast cancer status post mastectomy stable --Morbid obesity with BMI of 47.8, Patient would benefit by outpatient bariatric surgical evaluation for weight reduction program and medically stable --Full CODE STATUS Patient is not ready for extubation, place Dobbhoff and tube feeding per protocol Consults and recommendations noted Plan of care discussed with the family members at the bedside Critical care time 31 minutes The high probability of a clinically significant, sudden or life threatening deterioration of the [hemodynamic, respiratory, endocrine pulmonary and renal,] system(s) required my full and direct attention, intervention and personal management. The aggregate critical care time was [31] minutes. This time is in addition to time spent performing reported procedures but includes the following : [x] Data Review and interpretation [x] Patient assessment and monitoring of vital signs [x] Documentation [x] Medication orders and management History Interval history: 66-year-old female patient significant past medical history of hypertension and obstructive sleep apnea instability disease on hemodialysis this cancer status post mastectomy underwent elective total parathyroidectomy and was admitted to ICU with respiratory failure requiring intubation Patient remains intubated on ventilatory support and sedated Not in acute distress, scheduled for hemodialysis today Vital signs reviewed Hospitalist Physical - Constitutional Vitals: Temp Pulse Resp BP Pulse Ox 100 F H 69 20 159/65 98 06/07/17 09:26 06/07/17 09:38 06/07/17 09:38 06/07/17 09:38 06/07/17 09:38 General appearance: Present: no acute distress, obese (morbidly obese) - EENT Eyes: Present: PERRL, EOM intact - Neck Neck: Present: supple - Respiratory Respiratory effort: normal Respiratory: bilateral: diminished, rhonchi, negative: rales, wheezing - Cardiovascular Rhythm: regular Heart Sounds: Present: S1 & S2 - Extremities Extremities: no ischemia, No edema - Abdominal General gastrointestinal: soft, non-tender, non-distended, normal bowel sounds - Integumentary Integumentary: Present: clear, warm - Psychiatric Psychiatric: other (intubated and sedated) - Neurologic Neurologic: other (intubated and sedated) Results - Labs CBC & Chem 7: 06/07/17 05:21 06/07/17 05:21 Labs: Laboratory Last Values WBC 9.4 K/mm3 (4.5-11.0) 06/07/17 05:21 RBC 4.34 M/mm3 (3.65-5.03) 06/07/17 05:21 Hgb 10.5 gm/dl (10.1-14.3) 06/07/17 05:21 POC Hgb 14.3 (12-17) 06/04/17 16:22 Hct 32.5 % (30.3-42.9) 06/07/17 05:21 POC Hct 42 (38-51) 06/04/17 16:22 MCV 75 fl (79-97) L 06/07/17 05:21 MCH 24 pg (28-32) L 06/07/17 05:21 MCHC 32 % (30-34) 06/07/17 05:21 RDW 18.7 % (13.2-15.2) H 06/07/17 05:21 Plt Count 226 K/mm3 (140-440) 06/07/17 05:21 Add Manual Diff Complete 06/04/17 00:01 Total Counted 100 06/04/17 00:01 Seg Neutrophils % Knotting Machine Operator Portable 06/04/17 00:01 Seg Neuts % (Manual) 89.0 % (40.0-70.0) H 06/04/17 00:01 Band Neutrophils % 4.0 % 06/04/17 00:01 Lymphocytes % (Manual) 6.0 % (13.4-35.0) L 06/04/17 00:01 Reactive Lymphs % (Man) 0 % 06/04/17 00:01 Monocytes % (Manual) 0 % (0.0-7.3) 06/04/17 00:01 Eosinophils % (Manual) 0 % (0.0-4.3) 06/04/17 00:01 Basophils % (Manual) 1.0 % (0.0-1.8) 06/04/17 00:01 Metamyelocytes % 0 % 06/04/17 00:01 Myelocytes % 0 % 06/04/17 00:01 Promyelocytes % 0 % 06/04/17 00:01 Blast Cells % 0 % 06/04/17 00:01 Nucleated RBC % Not Reportable 06/04/17 00:01 Seg Neutrophils # Man 10.1 K/mm3 (1.8-7.7) H 06/04/17 00:01 Band Neutrophils # 0.5 K/mm3 06/04/17 00:01 Lymphocytes # (Manual) 0.7 K/mm3 (1.2-5.4) L 06/04/17 00:01 Abs React Lymphs (Man) 0.0 K/mm3 06/04/17 00:01 Monocytes # (Manual) 0.0 K/mm3 (0.0-0.8) 06/04/17 00:01 Eosinophils # (Manual) 0.0 K/mm3 (0.0-0.4) 06/04/17 00:01 Basophils # (Manual) 0.1 K/mm3 (0.0-0.1) 06/04/17 00:01 Metamyelocytes # 0.0 K/mm3 06/04/17 00:01 Myelocytes # 0.0 K/mm3 06/04/17 00:01 Promyelocytes # 0.0 K/mm3 06/04/17 00:01 Blast Cells # 0.0 K/mm3 06/04/17 00:01 WBC Morphology Not Reportable 06/04/17 00:01 Hypersegmented Neuts Not Reportable 06/04/17 00:01 Hyposegmented Neuts Not Reportable 06/04/17 00:01 Hypogranular Neuts Not Reportable 06/04/17 00:01 Smudge Cells Not Reportable 06/04/17 00:01 Toxic Granulation Not Reportable 06/04/17 00:01 Toxic Vacuolation Not Reportable 06/04/17 00:01 Dohle Bodies Not Reportable 06/04/17 00:01 Pelger-Huet Anomaly Not Reportable 06/04/17 00:01 Sunita Rods Not Reportable 06/04/17 00:01 Platelet Estimate Appears normal 06/04/17 00:01 Clumped Platelets Not Reportable 06/04/17 00:01 Plt Clumps, EDTA Not Reportable 06/04/17 00:01 Large Platelets Not Reportable 06/04/17 00:01 Giant Platelets Not Reportable 06/04/17 00:01 Platelet Satelliting Not Reportable 06/04/17 00:01 Plt Morphology Comment Not Reportable 06/04/17 00:01 RBC Morphology Not Reportable 06/04/17 00:01 Dimorphic RBCs Not Reportable 06/04/17 00:01 Polychromasia Not Reportable 06/04/17 00:01 Hypochromasia 1+ 06/04/17 00:01 Poikilocytosis Not Reportable 06/04/17 00:01 Anisocytosis Few 06/04/17 00:01 Microcytosis Not Reportable 06/04/17 00:01 Macrocytosis Not Reportable 06/04/17 00:01 Spherocytes Not Reportable 06/04/17 00:01 Pappenheimer Bodies Not Reportable 06/04/17 00:01 Sickle Cells Not Reportable 06/04/17 00:01 Target Cells Rare 06/04/17 00:01 Tear Drop Cells Not Reportable 06/04/17 00:01 Ovalocytes 1+ 06/04/17 00:01 Helmet Cells Not Reportable 06/04/17 00:01 [place] Bodies Not Reportable 06/04/17 00:01 [place] Rings Not Reportable 06/04/17 00:01 Ponce Cells Not Reportable 06/04/17 00:01 Bite Cells Not Reportable 06/04/17 00:01 Crenated Cell Not Reportable 06/04/17 00:01 Elliptocytes Not Reportable 06/04/17 00:01 Acanthocytes (Spur) Not Reportable 06/04/17 00:01 Rouleaux Not Reportable 06/04/17 00:01 Hemoglobin C Crystals Not Reportable 06/04/17 00:01 Schistocytes Not Reportable 06/04/17 00:01 Malaria parasites Not Reportable 06/04/17 00:01 Williams Bodies Not Reportable 06/04/17 00:01 Hem Pathologist Commnt No 06/04/17 00:01 POC ABG pH 7.430 (7.35-7.45) 06/07/17 03:53 POC ABG pCO2 39.8 (35-45) 06/07/17 03:53 POC ABG pO2 137 (80-105) H 06/07/17 03:53 POC ABG HCO3 26.4 06/07/17 03:53 POC ABG Total CO2 28 06/07/17 03:53 POC ABG O2 Sat 99 06/07/17 03:53 POC ABG Base Excess 2 06/07/17 03:53 POC Sodium 137 mmol/L (138-146) L 06/04/17 16:22 POC Potassium 5.3 (3.5-4.9) H 06/04/17 16:22 POC Chloride 102 (98-109) 06/04/17 16:22 FiO2 40 % 06/07/17 03:53 Sodium 139 mmol/L (137-145) 06/07/17 05:21 Potassium 5.4 mmol/L (3.6-5.0) H 06/07/17 05:21 Chloride 98.5 mmol/L (98-107) 06/07/17 05:21 Carbon Dioxide 26 mmol/L (22-30) 06/07/17 05:21 Anion Gap 20 mmol/L 06/07/17 05:21 POC BUN 45 mg/dl (8-26) H 06/04/17 16:22 BUN 52 mg/dL (7-17) H 06/07/17 05:21 Creatinine 6.2 mg/dL (0.7-1.2) H 06/07/17 05:21 Estimated GFR 8 ml/min 06/07/17 05:21 BUN/Creatinine Ratio 8.38 % 06/07/17 05:21 Glucose 107 mg/dL (65-100) H 06/07/17 05:21 POC Glucose 176 (70-105) H 06/04/17 16:22 Calcium 8.0 mg/dL (8.4-10.2) L 06/07/17 05:21 Phosphorus 4.50 mg/dL (2.5-4.5) 06/06/17 07:13 Magnesium 1.90 mg/dL (1.7-2.3) 06/06/17 07:13 Total Bilirubin 0.20 mg/dL (0.1-1.2) 06/06/17 07:13 AST 14 units/L (5-40) 06/06/17 07:13 ALT 15 units/L (7-56) 06/06/17 07:13 Alkaline Phosphatase 79 units/L (35-129) 06/06/17 07:13 Total Protein 5.7 g/dL (6.3-8.2) L 06/06/17 07:13 Albumin 3.3 g/dL (3.9-5) L 06/06/17 07:13 Albumin/Globulin Ratio 1.4 % 06/06/17 07:13 PTH Pre-Incision 641.9 (11.1-79.5) H 06/04/17 13:55 PTH Post-Excision 154.7 (11.1-79.5) H 06/04/17 13:55 PTH Intact Intraop 5 m Not Reportable 06/04/17 13:55
[2017-06-07] MEDS ORDERED: PANCREAZE DR 10,500 UNIT FEEDTUBE PRN (12:31)
[2017-06-07] MEDS ORDERED: SIMPLE SYRUP FEEDTUBE PRN ×2 (12:31)
[2017-06-07] MEDS ORDERED: SODIUM BICARBONATE FEEDTUBE PRN (12:31)
[2017-06-07] MEDS: MORPHINE IV PRN (13:14)
[2017-06-07 13:15] LABS: ISTAT Base Excess TNR
[2017-06-07] MEDS: HEPARIN SUB-Q SCH ×2 (13:15→23:30)
[2017-06-07 13:16] LABS: ISTAT HCO3 TNR; ISTAT PCO2 TNR (35-45); ISTAT PH TNR (7.35-7.45); ISTAT PO2 TNR (80-105)
[2017-06-07 13:17] LABS: ISTAT SO2 TNR; ISTAT TCO2 TNR
--- NOTE | 2017-06-07 14:36 | Progress Note ---
Assessment and Plan Imp: 1. Hyperparathyroidism s/p parathyroidectomy 2. Acute respiratory failure, hypoxia/hypercapnea 3. Morbid obesity 4. ESRD 5. Laryngeal edema Rec: 1. Although lung mechanics are good, complete absence of cuff leak in the presence of a 6.5 ETT is concerning for ongoing airway swelling; do not advise extubation today; resume Decadron 4mg IV [id number]; daily cuff leak test 2. For HD today 3. GI and DVT PPx 4. TFs Plan of care reviewed w/ patient, she understands/agrees; no family present CCT 31 minutes Subjective Date of service: 06/07/17 Principal diagnosis: Inadequate ventilation Interval history: No events. Awake on vent. No cuff leak at all per RT. No SOB, chest pain. Active Medications Lipase/Protease/Amylase (Pancreaze Dr 10,500 Unit) 1 each FEEDTUBE PRN PRN PRN Reason: For Clogged Feeding Tube Bisacodyl (Dulcolax) 10 mg CO QDAY PRN PRN Reason: constipation unrelieved by MOM Calcitriol (Rocaltrol) 0.5 mcg PO QDAY [facility] Last Admin: 06/07/17 10:00 Dose: Not Given Calcium Carbonate/Glycine (Tums) 1,000 mg PO TID [facility] Last Admin: 06/07/17 14:07 Dose: Not Given Dexamethasone (Decadron) 4 mg IV Q6HR [facility] Epoetin Riccardo (Procrit) 10,000 unit IV KAYLA PRN PRN Reason: hemodialysis Last Admin: 06/05/17 13:03 Dose: 10,000 unit Famotidine (Pepcid) 10 mg IV BID [facility] Last Admin: 06/07/17 09:35 Dose: 10 mg Heparin Sodium (Porcine) (Heparin) 5,000 unit SUB-Q Q12HR [facility] Last Admin: 06/07/17 13:15 Dose: 5,000 unit Hydrophilic Ointment (Vaseline Lip Therapy) 1 applic TP Q2HR PRN PRN Reason: Dry Lips Last Admin: 06/05/17 17:46 Dose: 1 applic Propofol (Diprivan 10 Mg/Ml) 1,000 mg in 100 mls @ 3.674 mls/hr IV TITR JANE; 5 MCG/KG/MIN PRN Reason: Protocol Last Titration: 06/06/17 07:30 Dose: 0 mcg/kg/min, 0 mls/hr Sodium Chloride (Nacl 0.9%) 100 mls @ 999 mls/hr IV KAYLA PRN PRN Reason: Hypotension Morphine Sulfate (Morphine) 2 mg IV Q4H PRN PRN Reason: Pain, Moderate (4-6) Last Admin: 06/07/17 13:14 Dose: 2 mg Multi-Ingred Cream/Lotion/Oil/Oint (Artificial Tears Ophth Oint) 1 applic OU Q4HR PRN PRN Reason: Dry Eye(s) Simple Syrup (Simple Syrup) 15 ml FEEDTUBE PRN PRN PRN Reason: Hypoglycemia Simple Syrup (Simple Syrup) 30 ml FEEDTUBE PRN PRN PRN Reason: Hypoglycemia Sodium Bicarbonate (Sodium Bicarbonate) 325 mg FEEDTUBE PRN PRN PRN Reason: For Clogged Feeding Tube Objective Vital Signs - 12hr 06/07/17 06/07/17 06/07/17 03:00 03:36 03:48 Temperature 97.9 F Pulse Rate 63 63 Pulse Rate [ From Monitor] Respiratory 17 Rate Blood Pressure 151/67 160/70 O2 Sat by Pulse 98 98 Oximetry 06/07/17 06/07/17 06/07/17 04:00 05:00 06:00 Temperature Pulse Rate 54 L 53 L 59 L Pulse Rate [ From Monitor] Respiratory 16 16 15 Rate Blood Pressure 156/65 164/76 159/84 O2 Sat by Pulse 97 98 97 Oximetry 06/07/17 06/07/17 06/07/17 07:00 08:00 09:00 Temperature 98.4 F Pulse Rate 65 66 67 Pulse Rate [ 66 From Monitor] Respiratory 20 21 18 Rate Blood Pressure 169/69 162/68 154/70 O2 Sat by Pulse 94 99 97 Oximetry 06/07/17 06/07/17 06/07/17 09:13 09:26 09:28 Temperature 100 F H Pulse Rate 67 70 Pulse Rate [ From Monitor] Respiratory 19 Rate Blood Pressure 154/70 159/65 O2 Sat by Pulse 97 98 Oximetry 06/07/17 06/07/17 06/07/17 09:38 10:00 11:00 Temperature Pulse Rate 69 72 70 Pulse Rate [ From Monitor] Respiratory 20 23 21 Rate Blood Pressure 159/65 161/63 142/70 O2 Sat by Pulse 98 97 97 Oximetry 06/07/17 06/07/17 06/07/17 11:17 11:43 12:00 Temperature 98.6 F Pulse Rate 68 68 Pulse Rate [ 68 From Monitor] Respiratory 20 18 Rate Blood Pressure 142/70 151/67 O2 Sat by Pulse 97 97 Oximetry 06/07/17 13:00 Temperature Pulse Rate 68 Pulse Rate [ From Monitor] Respiratory 21 Rate Blood Pressure 150/67 O2 Sat by Pulse 98 Oximetry Constitutional: alert, other (critically ill on vent) Eyes: non-icteric ENT: other (orally intubated) Neck: supple, other (swelling from surgery) Effort: normal Ascultation: Bilateral: other (coarse BS bilaterally) Cardiovascular: regular rate and rhythm (no mrg) Gastrointestinal: normoactive bowel sounds, soft, non-tender, non-distended, other (obese) Integumentary: normal Extremities: no cyanosis, no edema, pink and warm, edema Neurologic: normal mental status, non-focal exam, pupils equal and round, CN II- XII normal Psychiatric: mood appropriate, affect normal CBC and BMP: 06/07/17 05:21 06/07/17 05:21 ABG, PT/INR, D-dimer: ABG POC ABG pH 7.430 (7.35-7.45) 06/07/17 03:53 POC ABG pCO2 39.8 (35-45) 06/07/17 03:53 POC ABG pO2 137 (80-105) H 06/07/17 03:53 POC ABG HCO3 26.4 06/07/17 03:53 POC ABG Total CO2 28 06/07/17 03:53 POC ABG O2 Sat 99 06/07/17 03:53 Abnormal lab findings: Abnormal Labs 06/04/17 06/04/17 06/04/17 00:01 12:50 13:55 WBC 11.4 H POC Hct MCV 76 L MCH 23 L RDW 18.5 H Seg Neuts % (Manual) 89.0 H Lymphocytes % (Manual) 6.0 L Seg Neutrophils # Man 10.1 H Lymphocytes # (Manual) 0.7 L POC ABG pH POC ABG pCO2 POC ABG pO2 POC Sodium POC Potassium Potassium 5.1 H 5.2 H POC BUN BUN 48 H Creatinine 6.2 H Glucose POC Glucose Calcium Total Protein Albumin PTH Pre-Incision PTH Post-Excision 09/06/04/17 06/04/17 13:55 16:10 16:16 WBC POC Hct 37 L MCV MCH RDW Seg Neuts % (Manual) Lymphocytes % (Manual) Seg Neutrophils # Man Lymphocytes # (Manual) POC ABG pH 7.306 L POC ABG pCO2 58.7 H POC ABG pO2 338 H POC Sodium 135 L POC Potassium 5.2 H Potassium POC BUN 44 H BUN Creatinine Glucose POC Glucose 183 H Calcium Total Protein Albumin PTH Pre-Incision 641.9 H PTH Post-Excision 154.7 H 06/04/17 06/04/17 06/04/17 16:22 20:44 21:29 WBC POC Hct MCV MCH RDW Seg Neuts % (Manual) Lymphocytes % (Manual) Seg Neutrophils # Man Lymphocytes # (Manual) POC ABG pH 7.484 H POC ABG pCO2 POC ABG pO2 POC Sodium 137 L POC Potassium 5.3 H Potassium 5.2 H POC BUN 45 H BUN 51 H Creatinine 6.5 H Glucose 119 H POC Glucose 176 H Calcium Total Protein Albumin PTH Pre-Incision PTH Post-Excision 06/05/17 06/05/17 06/05/17 03:31 11:44 11:44 WBC 13.4 H POC Hct MCV 75 L MCH 23 L RDW 18.2 H Seg Neuts % (Manual) Lymphocytes % (Manual) Seg Neutrophils # Man Lymphocytes # (Manual) POC ABG pH POC ABG pCO2 POC ABG pO2 75 L POC Sodium POC Potassium Potassium 5.8 H POC BUN BUN 56 H Creatinine 7.0 H Glucose 111 H POC Glucose Calcium 8.2 L Total Protein 6.2 L Albumin 3.1 L PTH Pre-Incision PTH Post-Excision 06/06/17 06/06/17 06/07/17 05:07 07:13 03:53 WBC POC Hct MCV MCH RDW Seg Neuts % (Manual) Lymphocytes % (Manual) Seg Neutrophils # Man Lymphocytes # (Manual) POC ABG pH POC ABG pCO2 POC ABG pO2 116 H 137 H POC Sodium POC Potassium Potassium POC BUN BUN 32 H Creatinine 4.9 H Glucose 115 H POC Glucose Calcium 7.9 L Total Protein 5.7 L Albumin 3.3 L PTH Pre-Incision PTH Post-Excision 06/07/17 06/07/17 05:21 05:21 WBC POC Hct MCV 75 L MCH 24 L RDW 18.7 H Seg Neuts % (Manual) Lymphocytes % (Manual) Seg Neutrophils # Man Lymphocytes # (Manual) POC ABG pH POC ABG pCO2 POC ABG pO2 POC Sodium POC Potassium Potassium 5.4 H POC BUN BUN 52 H Creatinine 6.2 H Glucose 107 H POC Glucose Calcium 8.0 L Total Protein Albumin PTH Pre-Incision PTH Post-Excision Chest x-ray: report reviewed, image reviewed (CM with mild congestion)
--- NOTE | 2017-06-07 14:59 | Progress Note ---
Assessment and Plan d/w pulmonary will extubate in OR under direct visualization. Pt agrees with plan. Subjective Date of service: 06/07/17 Patient Reports: Positive: no new complaints Objective Vital Signs - 12hr 06/07/17 06/07/17 06/07/17 03:00 03:36 03:48 Temperature 97.9 F Pulse Rate 63 63 Pulse Rate [ From Monitor] Respiratory 17 Rate Blood Pressure 151/67 160/70 O2 Sat by Pulse 98 98 Oximetry 06/07/17 06/07/17 06/07/17 04:00 05:00 06:00 Temperature Pulse Rate 54 L 53 L 59 L Pulse Rate [ From Monitor] Respiratory 16 16 15 Rate Blood Pressure 156/65 164/76 159/84 O2 Sat by Pulse 97 98 97 Oximetry 06/07/17 06/07/17 06/07/17 07:00 08:00 09:00 Temperature 98.4 F Pulse Rate 65 66 67 Pulse Rate [ 66 From Monitor] Respiratory 20 21 18 Rate Blood Pressure 169/69 162/68 154/70 O2 Sat by Pulse 94 99 97 Oximetry 06/07/17 06/07/17 06/07/17 09:13 09:26 09:28 Temperature 100 F H Pulse Rate 67 70 Pulse Rate [ From Monitor] Respiratory 19 Rate Blood Pressure 154/70 159/65 O2 Sat by Pulse 97 98 Oximetry 06/07/17 06/07/17 06/07/17 09:38 10:00 11:00 Temperature Pulse Rate 69 72 70 Pulse Rate [ From Monitor] Respiratory 20 23 21 Rate Blood Pressure 159/65 161/63 142/70 O2 Sat by Pulse 98 97 97 Oximetry 06/07/17 06/07/17 06/07/17 11:17 11:43 12:00 Temperature 98.6 F Pulse Rate 68 68 Pulse Rate [ 68 From Monitor] Respiratory 20 18 Rate Blood Pressure 142/70 151/67 O2 Sat by Pulse 97 97 Oximetry 06/07/17 13:00 Temperature Pulse Rate 68 Pulse Rate [ From Monitor] Respiratory 21 Rate Blood Pressure 150/67 O2 Sat by Pulse 98 Oximetry - Neck no masses (incision healing), no bruits, trachea midline, no lymphadectomy, no venous distension - Labs 06/07/17 05:21 06/07/17 05:21 Diabetes panel 06/07/17 Range/Units 05:21 Sodium 139 (137-145) mmol/L Potassium 5.4 H (3.6-5.0) mmol/L Chloride 98.5 (98-107) mmol/L Carbon Dioxide 26 (22-30) mmol/L BUN 52 H (7-17) mg/dL Creatinine 6.2 H (0.7-1.2) mg/dL Glucose 107 H (65-100) mg/dL Calcium 8.0 L (8.4-10.2) mg/dL Calcium panel 06/07/17 Range/Units 05:21 Calcium 8.0 L (8.4-10.2) mg/dL Pituitary panel 06/07/17 Range/Units 05:21 Sodium 139 (137-145) mmol/L Potassium 5.4 H (3.6-5.0) mmol/L Chloride 98.5 (98-107) mmol/L Carbon Dioxide 26 (22-30) mmol/L BUN 52 H (7-17) mg/dL Creatinine 6.2 H (0.7-1.2) mg/dL Glucose 107 H (65-100) mg/dL Calcium 8.0 L (8.4-10.2) mg/dL Adrenal panel 06/07/17 Range/Units 05:21 Sodium 139 (137-145) mmol/L Potassium 5.4 H (3.6-5.0) mmol/L Chloride 98.5 (98-107) mmol/L Carbon Dioxide 26 (22-30) mmol/L BUN 52 H (7-17) mg/dL Creatinine 6.2 H (0.7-1.2) mg/dL Glucose 107 H (65-100) mg/dL Calcium 8.0 L (8.4-10.2) mg/dL
--- NOTE | 2017-06-07 15:44 | XRay Report ---
Single view abdomen: History: Dobbhoff placement. Findings: Tip of Dobbhoff feeding tube is noted in distal stomach. Impression: Tip of Dobbhoff feeding tube is noted in distal stomach.
--- NOTE | 2017-06-07 15:52 | Progress Note ---
Assessment and Plan Pt extubated in OR without difficulty. Adv diet and may dc in am from surgical standpt. Subjective Patient Reports: Positive: no new complaints Objective Vital Signs - 12hr 06/07/17 06/07/17 06/07/17 04:00 05:00 06:00 Temperature Pulse Rate 54 L 53 L 59 L Pulse Rate [ From Monitor] Respiratory 16 16 15 Rate Blood Pressure 156/65 164/76 159/84 O2 Sat by Pulse 97 98 97 Oximetry 06/07/17 06/07/17 06/07/17 07:00 08:00 09:00 Temperature 98.4 F Pulse Rate 65 66 67 Pulse Rate [ 66 From Monitor] Respiratory 20 21 18 Rate Blood Pressure 169/69 162/68 154/70 O2 Sat by Pulse 94 99 97 Oximetry 06/07/17 06/07/17 06/07/17 09:13 09:26 09:28 Temperature 100 F H Pulse Rate 67 70 Pulse Rate [ From Monitor] Respiratory 19 Rate Blood Pressure 154/70 159/65 O2 Sat by Pulse 97 98 Oximetry 06/07/17 06/07/17 06/07/17 09:38 10:00 11:00 Temperature Pulse Rate 69 72 70 Pulse Rate [ From Monitor] Respiratory 20 23 21 Rate Blood Pressure 159/65 161/63 142/70 O2 Sat by Pulse 98 97 97 Oximetry 06/07/17 06/07/17 06/07/17 11:17 11:43 12:00 Temperature 98.6 F Pulse Rate 68 68 Pulse Rate [ 68 From Monitor] Respiratory 20 18 Rate Blood Pressure 142/70 151/67 O2 Sat by Pulse 97 97 Oximetry 06/07/17 06/07/17 13:00 15:25 Temperature Pulse Rate 68 74 Pulse Rate [ From Monitor] Respiratory 21 21 Rate Blood Pressure 150/67 150/68 O2 Sat by Pulse 98 98 Oximetry - Labs 06/07/17 05:21 06/07/17 05:21 Diabetes panel 06/07/17 Range/Units 05:21 Sodium 139 (137-145) mmol/L Potassium 5.4 H (3.6-5.0) mmol/L Chloride 98.5 (98-107) mmol/L Carbon Dioxide 26 (22-30) mmol/L BUN 52 H (7-17) mg/dL Creatinine 6.2 H (0.7-1.2) mg/dL Glucose 107 H (65-100) mg/dL Calcium 8.0 L (8.4-10.2) mg/dL Calcium panel 06/07/17 Range/Units 05:21 Calcium 8.0 L (8.4-10.2) mg/dL Pituitary panel 06/07/17 Range/Units 05:21 Sodium 139 (137-145) mmol/L Potassium 5.4 H (3.6-5.0) mmol/L Chloride 98.5 (98-107) mmol/L Carbon Dioxide 26 (22-30) mmol/L BUN 52 H (7-17) mg/dL Creatinine 6.2 H (0.7-1.2) mg/dL Glucose 107 H (65-100) mg/dL Calcium 8.0 L (8.4-10.2) mg/dL Adrenal panel 06/07/17 Range/Units 05:21 Sodium 139 (137-145) mmol/L Potassium 5.4 H (3.6-5.0) mmol/L Chloride 98.5 (98-107) mmol/L Carbon Dioxide 26 (22-30) mmol/L BUN 52 H (7-17) mg/dL Creatinine 6.2 H (0.7-1.2) mg/dL Glucose 107 H (65-100) mg/dL Calcium 8.0 L (8.4-10.2) mg/dL
[2017-06-07] MEDS ORDERED: NACL 0.9% NEBU ONE (16:22)
[2017-06-07] MEDS ORDERED: S2 RACEPINEPHRINE 2.25% IH ONE ×2 (16:22→16:46)
[2017-06-07] MEDS ORDERED: NACL 0.9% NEBU IH ONE (16:46)
--- NOTE | 2017-06-07 17:13 | Event Note ---
Date: 06/07/17 Patient extubated in the OR. Arrived back up to ICU with audible inspiratory stridor, SBP > 200, tachycardia in the 120's, increased WOB. Given racemic EPI treatment and anesthesia (Dr. Bronson) immediately paged. BIPAP was ordered by Dr. Bronson. Work of breathing has improved. ABG pending 30 minutes after BIPAP. Rec: 1. If ANY respiratory decompensation occurs, notify anesthesiology to re- intubate the patient as she is a difficult airway + apparent airway edema 2. Cont. Decadron 3. Racemic EPI prn
[2017-06-07 17:54] LABS: ISTAT Base Excess 0; ISTAT HCO3 26.1; ISTAT PCO2 51.9 (35-45); ISTAT PO2 95 (80-105); ISTAT SO2 96; ISTAT TCO2 28
[2017-06-07] MEDS ORDERED: NACL 0.9% 1000 ML 1,000 ML ONE (18:33)
[2017-06-07] MEDS: PROCRIT IV PRN (18:39)
[2017-06-07] MEDS: DECADRON IV SCH ×2 (18:49→23:29)
[2017-06-08] MEDS: TUMS PO SCH ×3 (00:19→14:23)
[2017-06-08] MEDS: APRESOLINE IV PRN ×3 (01:57→20:10)
[2017-06-08] MEDS: DECADRON IV SCH ×4 (06:08→23:53)
[2017-06-08 06:17] LABS: Hematocrit 36.1 % (30.3-42.9); Mean Corpuscular HGB Conc 31 % (30-34); Mean Corpuscular Volume 77 fl (79-97); Platelet Count 238 K/mm3 (140-440); Red Blood Count 4.71 M/mm3 (3.65-5.03); Red Cell Distribution Width 18.3 % (13.2-15.2)
[2017-06-08 06:19] LABS: Mean Corpuscular Hemoglobin 23 pg (28-32)
[2017-06-08 06:31] LABS: Calcium 8.3 mg/dL (8.4-10.2); Chloride 96.9 mmol/L (98-107)
[2017-06-08 06:55] LABS: Potassium 4.3 mmol/L (3.6-5.0)
[2017-06-08 06:58] LABS: Basophils % (Manual) 0 % (0.0-1.8); Blastocytes % (Manual) 0 %; Diff Status Complete; Hypochromasia 1+; Platelet Estimate Consistent w Auto
--- NOTE | 2017-06-08 07:30 | XRay Report ---
Portable chest: Respiratory distress. Comparison is made to the study of June 07. A left jugular central venous line overlies the upper aortic arch. There is questionable mild increased opacity at the left base than on the prior KUB shows what appears to be focal atelectasis. The heart is normal in size. The findings are not otherwise remarkable. Impression: 1. Questionable positioning of the central venous line. Needs clinical correlation. 2. Probable focal of basilar atelectasis.
[2017-06-08] MEDS ORDERED: S2 RACEPINEPHRINE 2.25% IH ONE ×2 (09:29→10:30)
--- NOTE | 2017-06-08 09:54 | Progress Note ---
Assessment and Plan Impression: * ESRD * hypertension * s/p parathyroidectomy * Anemia in esrd * respiratory failure Plan: * hd q mwf * added tums and calcitriol * iv calcium prn * uf as tolerated with hd * high calcium bath with hd * epogen with hd * strict i/os * follow up am darryl Subjective Date of service: 06/08/17 Principal diagnosis: Inadequate ventilation Interval history: no new complaints Objective - Exam Narrative Exam: General appearance: Present: severe distress, obese - EENT Eyes: Present: PERRL ENT: hearing intact, clear oral mucosa - Neck Neck: Present: supple, normal ROM - Respiratory Respiratory effort: labored Respiratory: bilateral: diminished - Cardiovascular Heart Sounds: Present: S1 & S2. Absent: rub, click - Extremities Extremities: pulses symmetrical, No edema Extremity abnormal: edema Peripheral Pulses: within normal limits - Abdominal Female genitourinary: Present: normal - Integumentary Integumentary: Present: clear, warm, dry - Musculoskeletal Musculoskeletal: generalized weakness - Psychiatric Psychiatric: no intact judgment & insight, no memory intact, agitated - Neurologic Neurologic: CNII-XII intact, moves all extremities - Vital Signs Vital signs: Vital Signs - 12hr 06/07/17 06/07/17 06/08/17 22:00 23:00 00:00 Temperature 98.6 F Pulse Rate 65 65 67 Respiratory 20 20 22 Rate Blood Pressure 143/74 139/71 130/70 O2 Sat by Pulse 100 98 98 Oximetry 06/08/17 06/08/17 06/08/17 01:00 01:57 02:00 Temperature Pulse Rate 61 78 70 Respiratory 20 20 Rate Blood Pressure 166/83 188/92 169/73 O2 Sat by Pulse 100 98 Oximetry 06/08/17 06/08/17 06/08/17 03:00 03:33 03:57 Temperature 98.3 F Pulse Rate 72 71 Respiratory 15 20 Rate Blood Pressure 135/75 165/74 O2 Sat by Pulse 98 99 Oximetry 06/08/17 06/08/17 06/08/17 04:00 05:00 06:00 Temperature Pulse Rate 73 73 76 Respiratory 15 16 16 Rate Blood Pressure 172/77 153/70 161/69 O2 Sat by Pulse 99 98 98 Oximetry 06/08/17 06/08/17 06/08/17 07:00 07:57 08:00 Temperature 98.6 F Pulse Rate 72 78 Respiratory 17 16 Rate Blood Pressure 161/71 172/70 O2 Sat by Pulse 99 93 Oximetry - Lab 06/08/17 04:00 06/08/17 04:00 Most recent lab results Calcium 8.3 mg/dL (8.4-10.2) L 06/08/17 04:00 Phosphorus 4.50 mg/dL (2.5-4.5) 06/06/17 07:13 Magnesium 1.90 mg/dL (1.7-2.3) 06/06/17 07:13
[2017-06-08] MEDS ORDERED: PEPCID PO SCH (10:00)
[2017-06-08] MEDS: HEPARIN SUB-Q SCH ×2 (10:06→23:53)
[2017-06-08] MEDS: ROCALTROL PO SCH (10:25)
[2017-06-08] MEDS: PEPCID IV SCH (12:19)
[2017-06-08 12:31] LABS: ISTAT Base Excess 4; ISTAT HCO3 29.5; ISTAT PCO2 55.1 (35-45); ISTAT PH 7.336 (7.35-7.45); ISTAT PO2 103 (80-105); ISTAT SO2 97; ISTAT TCO2 31
--- NOTE | 2017-06-08 14:00 | Cat Scan Report ---
CT head without contrast: Acutely altered mental status. Axial images demonstrate a dense left middle cerebral artery. There is edema in the territory of the middle cerebral artery involving the temporal and parietal lobes. There is no obvious mass effect and there is no hemorrhage identified at this time. The remainder of the intracranial scan is unremarkable. The visualized bones and paranasal sinuses are unremarkable. There is no prior exam for comparison. Impression: Findings consistent with acute stroke of the middle cerebral artery.
--- NOTE | 2017-06-08 14:31 | Progress Note ---
Assessment and Plan Imp: 1. Hyperparathyroidism s/p parathyroidectomy 2. Acute respiratory failure, hypoxia/hypercapnea 3. Morbid obesity 4. ESRD 5. Laryngeal edema/stridor 6. Acute CVA Rec: 1. Cont. Decadron for now as had some stridor earlier this AM 2. Racemic EPI prn 3. Wean O2 to keep sats 88-94% 4. Checked [facility] CVL -> blood drawn from ports is fairly bright red; sent for ABG 7.; concerning for malpositioning in an artery; d/w vascular surgery who recommends a CT neck w/o contrast to be sure which has been ordered; order placed not to use the line until further notice 5. Neurology consulted; TPA not an option in light of #4, but need to consider heparin 6. Permissive HTN 7. Cont. ICU management CCT 31 minutes; updated son at bedside Subjective Date of service: 06/08/17 Principal diagnosis: Inadequate ventilation Interval history: Extubated in OR yesterday. Had stridor on return to the ICU, required BIPAP overnight as well as Decadron and Racemic EPI. Actually was doing better pulm- pierre this AM. Reportedly around 9:00am to 9:30am developed altered mentation in the setting of increased work of breathing (after using the bathroom). ABG showed some mild CO2 retention. She was placed on BIPAP. Her mentation did not improve and she was noted to not be moving her RUE. She was sent down for CT head, results per below. She is currently awake but not responding by voice, will move LUE. Her SOB is stable and there is no stridor. Active Medications Lipase/Protease/Amylase (Pancrexavi Dr 10,500 Unit) 1 each FEEDTUBE PRN PRN PRN Reason: For Clogged Feeding Tube Bisacodyl (Dulcolax) 10 mg DE QDAY PRN PRN Reason: constipation unrelieved by MOM Calcitriol (Rocaltrol) 0.[address] [facility] Last Admin: 06/08/17 10:25 Dose: Not Given Calcium Carbonate/Glycine (Tums) 1,[address] [facility] Last Admin: 06/08/17 14:23 Dose: Not Given Dexamethasone (Decadron) [address] [facility] Last Admin: 06/08/17 12:19 Dose: 4 mg Epoetin Riccardo (Procrit) 10,000 unit IV KAYLA PRN PRN Reason: hemodialysis Last Admin: 06/07/17 18:39 Dose: 10,000 unit Famotidine (Pepcid) [address] [facility] Last Admin: 06/08/17 12:19 Dose: 20 mg Heparin Sodium (Porcine) (Heparin) 5,000 unit SUB-Q Q12HR JANE Last Admin: 06/08/17 10:06 Dose: 5,000 unit Hydralazine HCl (Apresoline) 5 mg IV Q6HR PRN PRN Reason: SBP>160 Last Admin: 06/08/17 01:57 Dose: 5 mg Hydrophilic Ointment (Vaseline Lip Therapy) 1 applic TP Q2HR PRN PRN Reason: Dry Lips Last Admin: 06/05/17 17:46 Dose: 1 applic Sodium Chloride (Nacl 0.9%) 100 mls @ 999 mls/hr IV KAYLA PRN PRN Reason: Hypotension Morphine Sulfate (Morphine) 2 mg IV Q4H PRN PRN Reason: Pain, Moderate (4-6) Last Admin: 06/07/17 13:14 Dose: 2 mg Multi-Ingred Cream/Lotion/Oil/Oint (Artificial Tears Ophth Oint) 1 applic OU Q4HR PRN PRN Reason: Dry Eye(s) Simple Syrup (Simple Syrup) 15 ml FEEDTUBE PRN PRN PRN Reason: Hypoglycemia Simple Syrup (Simple Syrup) 30 ml FEEDTUBE PRN PRN PRN Reason: Hypoglycemia Sodium Bicarbonate (Sodium Bicarbonate) 325 mg FEEDTUBE PRN PRN PRN Reason: For Clogged Feeding Tube Objective Vital Signs - 12hr 06/08/17 06/08/17 06/08/17 03:00 03:33 03:57 Temperature 98.3 F Pulse Rate 72 71 Pulse Rate [ From Monitor] Respiratory 15 20 Rate Blood Pressure 135/75 165/74 O2 Sat by Pulse 98 99 Oximetry 06/08/17 06/08/17 06/08/17 04:00 05:00 06:00 Temperature Pulse Rate 73 73 76 Pulse Rate [ From Monitor] Respiratory 15 16 16 Rate Blood Pressure 172/77 153/70 161/69 O2 Sat by Pulse 99 98 98 Oximetry 06/08/17 06/08/17 06/08/17 07:00 07:57 08:00 Temperature 98.6 F Pulse Rate 72 78 Pulse Rate [ 78 From Monitor] Respiratory 17 16 Rate Blood Pressure 161/71 172/70 O2 Sat by Pulse 99 93 Oximetry 06/08/17 06/08/17 06/08/17 09:00 10:00 10:50 Temperature Pulse Rate 94 H 72 61 Pulse Rate [ From Monitor] Respiratory 20 21 24 Rate Blood Pressure 197/119 188/81 146/71 O2 Sat by Pulse 87 95 97 Oximetry 06/08/17 06/08/17 06/08/17 11:00 11:25 12:00 Temperature 98.0 F Pulse Rate 64 61 Pulse Rate [ 61 From Monitor] Respiratory 17 17 Rate Blood Pressure 143/71 146/71 O2 Sat by Pulse 99 Oximetry Constitutional: alert, other (critically ill) Eyes: non-icteric Neck: supple, other (swelling from surgery, no stridor currently) Effort: normal Ascultation: Bilateral: other (coarse BS bilaterally) Percussion: Bilateral: not dull Cardiovascular: regular rate and rhythm (no mrg) Gastrointestinal: normoactive bowel sounds, soft, non-tender, non-distended, other (obese) Integumentary: normal Extremities: no cyanosis, no edema, pink and warm, edema Neurologic: other (altered mentation, RUE weakness focally) Psychiatric: mood appropriate, affect normal CBC and BMP: 06/08/17 04:00 06/08/17 04:00 ABG, PT/INR, D-dimer: ABG POC ABG pH 7.336 (7.35-7.45) L 06/08/17 10:51 POC ABG pCO2 55.1 (35-45) H 06/08/17 10:51 POC ABG pO2 103 (80-105) 06/08/17 10:51 POC ABG HCO3 29.5 06/08/17 10:51 POC ABG Total CO2 31 06/08/17 10:51 POC ABG O2 Sat 97 06/08/17 10:51 Abnormal lab findings: Abnormal Labs 06/04/17 06/04/17 06/04/17 00:01 12:50 13:55 WBC 11.4 H POC Hct MCV 76 L MCH 23 L RDW 18.5 H Seg Neuts % (Manual) 89.0 H Lymphocytes % (Manual) 6.0 L Nucleated RBC % Seg Neutrophils # Man 10.1 H Lymphocytes # (Manual) 0.7 L POC ABG pH POC ABG pCO2 POC ABG pO2 POC Sodium POC Potassium Potassium 5.1 H 5.2 H Chloride POC BUN BUN 48 H Creatinine 6.2 H Glucose POC Glucose Calcium Total Protein Albumin PTH Pre-Incision PTH Post-Excision 06/04/17 06/04/17 06/04/17 13:55 16:10 16:16 WBC POC Hct 37 L MCV MCH RDW Seg Neuts % (Manual) Lymphocytes % (Manual) Nucleated RBC % Seg Neutrophils # Man Lymphocytes # (Manual) POC ABG pH 7.306 L POC ABG pCO2 58.7 H POC ABG pO2 338 H POC Sodium 135 L POC Potassium 5.2 H Potassium Chloride POC BUN 44 H BUN Creatinine Glucose POC Glucose 183 H Calcium Total Protein Albumin PTH Pre-Incision 641.9 H PTH Post-Excision 154.7 H 06/04/17 06/04/17 06/04/17 16:22 20:44 21:29 WBC POC Hct MCV MCH RDW Seg Neuts % (Manual) Lymphocytes % (Manual) Nucleated RBC % Seg Neutrophils # Man Lymphocytes # (Manual) POC ABG pH 7.484 H POC ABG pCO2 POC ABG pO2 POC Sodium 137 L POC Potassium 5.3 H Potassium 5.2 H Chloride POC BUN 45 H BUN 51 H Creatinine 6.5 H Glucose 119 H POC Glucose 176 H Calcium Total Protein Albumin PTH Pre-Incision PTH Post-Excision 06/05/17 06/05/17 06/05/17 03:31 11:44 11:44 WBC 13.4 H POC Hct MCV 75 L MCH 23 L RDW 18.2 H Seg Neuts % (Manual) Lymphocytes % (Manual) Nucleated RBC % Seg Neutrophils # Man Lymphocytes # (Manual) POC ABG pH POC ABG pCO2 POC ABG pO2 75 L POC Sodium POC Potassium Potassium 5.8 H Chloride POC BUN BUN 56 H Creatinine 7.0 H Glucose 111 H POC Glucose Calcium 8.2 L Total Protein 6.2 L Albumin 3.1 L PTH Pre-Incision PTH Post-Excision 06/06/17 06/06/17 06/07/17 05:07 07:13 03:53 WBC POC Hct MCV MCH RDW Seg Neuts % (Manual) Lymphocytes % (Manual) Nucleated RBC % Seg Neutrophils # Man Lymphocytes # (Manual) POC ABG pH POC ABG pCO2 POC ABG pO2 116 H 137 H POC Sodium POC Potassium Potassium Chloride POC BUN BUN 32 H Creatinine 4.9 H Glucose 115 H POC Glucose Calcium 7.9 L Total Protein 5.7 L Albumin 3.3 L PTH Pre-Incision PTH Post-Excision 06/07/17 06/07/17 06/07/17 05:21 05:21 16:54 WBC POC Hct MCV 75 L MCH 24 L RDW 18.7 H Seg Neuts % (Manual) Lymphocytes % (Manual) Nucleated RBC % Seg Neutrophils # Man Lymphocytes # (Manual) POC ABG pH POC ABG pCO2 POC ABG pO2 POC Sodium POC Potassium Potassium 5.4 H Chloride POC BUN BUN 52 H Creatinine 6.2 H Glucose 107 H POC Glucose 110 H Calcium 8.0 L Total Protein Albumin PTH Pre-Incision PTH Post-Excision 06/07/17 06/07/17 06/08/17 17:38 23:32 04:00 WBC POC Hct MCV 77 L MCH 23 L RDW 18.3 H Seg Neuts % (Manual) 78.0 H Lymphocytes % (Manual) Nucleated RBC % 3.0 H Seg Neutrophils # Man 7.8 H Lymphocytes # (Manual) POC ABG pH 7.310 L POC ABG pCO2 51.9 H POC ABG pO2 POC Sodium POC Potassium Potassium Chloride POC BUN BUN Creatinine Glucose POC Glucose 63 L Calcium Total Protein Albumin PTH Pre-Incision PTH Post-Excision 06/08/17 06/08/17 06/08/17 04:00 10:51 11:25 WBC POC Hct MCV MCH RDW Seg Neuts % (Manual) Lymphocytes % (Manual) Nucleated RBC % Seg Neutrophils # Man Lymphocytes # (Manual) POC ABG pH 7.336 L POC ABG pCO2 55.1 H POC ABG pO2 POC Sodium POC Potassium Potassium Chloride 96.9 L POC BUN BUN 29 H Creatinine 4.6 H Glucose POC Glucose 108 H Calcium 8.3 L Total Protein Albumin PTH Pre-Incision PTH Post-Excision Chest x-ray: report reviewed, image reviewed (Lungs generally clear; central line in a suboptimal position on the L) Additional Studies: CT head suggestive of acute MCA CVA
[2017-06-08 14:40] LABS: ISTAT Base Excess 5; ISTAT HCO3 30.7; ISTAT PCO2 52.8 (35-45); ISTAT PH 7.372 (7.35-7.45); ISTAT PO2 77 (80-105); ISTAT SO2 95; ISTAT TCO2 32
--- NOTE | 2017-06-08 15:17 | Event Note ---
Date: 06/08/17 Was notified that patient possible left arterially placed central line in the setting of acute stroke. This patient had a TLC placed several days ago for an elective parathyroidectomy. There was some suspicion of malpositioning based on xray, so an ABG was drawn and found to have a pO2 in the 70s. Due to right arm stroke symptoms, a head CT was performed and there were signs consistent with left MCA territory stroke. If this is indeed an arterially placed central line with associated stroke, then removal in the OR with carotid embolectomy is required. I spoke with the rn eligibility and we collective agreed on the following prior to any member of the vascular team approaching the patient: 1. Neck CT to confirm arterial line placement 2. Evaluation by neurology with comment on ability to anticoagulate patient 3. Involvement by risk management and possibly primary surgeon, with clear communication to family/patient about the circumstances PRIOR to our involvement. Once this has happened, we can plan on OR removal.
--- NOTE | 2017-06-08 16:53 | Progress Note ---
Assessment and Plan Assessment and plan: 66-year-old female patient significant past medical history of hypertension and obstructive sleep apnea, ESRD on hemodialysis, breast cancer status post mastectomy underwent elective total parathyroidectomy and was admitted to ICU with respiratory failure requiring intubation Acute hypoxic respiratory failure - Status post extubation this morning - Currently patient is on BiPAP - If she decompensates she needs to be reintubated Status post subtotal parathyroidectomy - Continue postop care per surgery End-stage renal disease on hemodialysis - Continue hemodialysis as scheduled per nephrology Hyperkalemia - Due to CKD - Continue hemodialysis Hypertension - Continue When necessary medication History of breast cancer status post mastectomy - Stable Morbid obesity with BMI of 47.8, - Patient presented bariatric surgery after her acute condition is stabilized The high probability of a clinically significant, sudden or life threatening deterioration of the [respiratory] system(s) required my full and direct attention, intervention and personal management. The aggregate critical care time was [32] minutes. This time is in addition to time spent performing reported procedures but includes the following: [x] Data Review and interpretation [x] Patient assessment and monitoring of vital signs [x] Documentation [x] Medication orders and managementPatient would benefit by outpatient bariatric surgical evaluation for weight reduction program and medically stable CODE STATUS FULL History Interval history: Patient was seen and evaluated this morning, patient was sleepy, status post extubation. Hospitalist Physical - Physical exam Narrative exam: Status post extubation, patient is on BiPAP. The patient appeared well nourished and normally developed. Vital signs as documented. Clean surgical dressing on the neck Head exam is unremarkable. No scleral icterus . Neck is without jugular venous distension, thyromegaly, or carotid bruits. Lungs are clear to auscultation. Cardiac exam reveals regular rate and Rhythm. First and second heart sounds normal. No murmurs, rubs or gallops. Abdominal exam reveals normal bowel sounds, no masses, no organomegaly and no aortic enlargement. Extremities are nonedematous and both femoral and pedal pulses are normal. 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 - Constitutional Vitals: Temp Pulse Resp BP Pulse Ox 98.0 F 66 16 177/91 100 06/08/17 11:25 06/08/17 15:00 06/08/17 15:00 06/08/17 15:11 06/08/17 15:00 General appearance: Present: no acute distress, obese (morbidly obese) Results - Labs CBC & Chem 7: 10/03/17 04:00 06/08/17 04:00 Labs: Laboratory Last Values WBC 10.0 K/mm3 (4.5-11.0) 06/08/17 04:00 RBC 4.71 M/mm3 (3.65-5.03) 06/08/17 04:00 Hgb 11.0 gm/dl (10.1-14.3) 06/08/17 04:00 POC Hgb 14.3 (12-17) 06/04/17 16:22 Hct 36.1 % (30.3-42.9) 06/08/17 04:00 POC Hct 42 (38-51) 06/04/17 16:22 MCV 77 fl (79-97) L 06/08/17 04:00 MCH 23 pg (28-32) L 06/08/17 04:00 MCHC 31 % (30-34) 06/08/17 04:00 RDW 18.3 % (13.2-15.2) H 06/08/17 04:00 Plt Count 238 K/mm3 (140-440) 06/08/17 04:00 Add Manual Diff Complete 06/08/17 04:00 Total Counted 100 06/08/17 04:00 Seg Neutrophils % Automatic Pinsetter Mechanic 06/04/17 00:01 Seg Neuts % (Manual) 78.0 % (40.0-70.0) H 06/08/17 04:00 Band Neutrophils % 0 % 06/08/17 04:00 Lymphocytes % (Manual) 14.0 % (13.4-35.0) 06/08/17 04:00 Reactive Lymphs % (Man) 0 % 06/08/17 04:00 Monocytes % (Manual) 6.0 % (0.0-7.3) 06/08/17 04:00 Eosinophils % (Manual) 1.0 % (0.0-4.3) 06/08/17 04:00 Basophils % (Manual) 0 % (0.0-1.8) 06/08/17 04:00 Metamyelocytes % 1.0 % 06/08/17 04:00 Myelocytes % 0 % 06/08/17 04:00 Promyelocytes % 0 % 06/08/17 04:00 Blast Cells % 0 % 06/08/17 04:00 Nucleated RBC % 3.0 % (0.0-0.9) H 06/08/17 04:00 Seg Neutrophils # Man 7.8 K/mm3 (1.8-7.7) H 06/08/17 04:00 Band Neutrophils # 0.0 K/mm3 06/08/17 04:00 Lymphocytes # (Manual) 1.4 K/mm3 (1.2-5.4) 06/08/17 04:00 Abs React Lymphs (Man) 0.0 K/mm3 06/08/17 04:00 Monocytes # (Manual) 0.6 K/mm3 (0.0-0.8) 06/08/17 04:00 Eosinophils # (Manual) 0.1 K/mm3 (0.0-0.4) 06/08/17 04:00 Basophils # (Manual) 0.0 K/mm3 (0.0-0.1) 06/08/17 04:00 Metamyelocytes # 0.1 K/mm3 06/08/17 04:00 Myelocytes # 0.0 K/mm3 06/08/17 04:00 Promyelocytes # 0.0 K/mm3 06/08/17 04:00 Blast Cells # 0.0 K/mm3 06/08/17 04:00 WBC Morphology Not Reportable 06/08/17 04:00 Hypersegmented Neuts Not Reportable 06/08/17 04:00 Hyposegmented Neuts Not Reportable 06/08/17 04:00 Hypogranular Neuts Not Reportable 06/08/17 04:00 Smudge Cells Not Reportable 06/08/17 04:00 Toxic Granulation Not Reportable 06/08/17 04:00 Toxic Vacuolation Not Reportable 06/08/17 04:00 Dohle Bodies Not Reportable 06/08/17 04:00 Pelger-Huet Anomaly Not Reportable 06/08/17 04:00 Sunita Rods Not Reportable 06/08/17 04:00 Platelet Estimate Consistent w auto 06/08/17 04:00 Clumped Platelets Not Reportable 06/08/17 04:00 Plt Clumps, EDTA Not Reportable 06/08/17 04:00 Large Platelets Not Reportable 06/08/17 04:00 Giant Platelets Not Reportable 06/08/17 04:00 Platelet Satelliting Not Reportable 06/08/17 04:00 Plt Morphology Comment Not Reportable 06/08/17 04:00 RBC Morphology Not Reportable 06/08/17 04:00 Dimorphic RBCs Not Reportable 06/08/17 04:00 Polychromasia Not Reportable 06/08/17 04:00 Hypochromasia 1+ 06/08/17 04:00 Poikilocytosis Not Reportable 06/08/17 04:00 Anisocytosis Not Reportable 06/08/17 04:00 Microcytosis Not Reportable 06/08/17 04:00 Macrocytosis Not Reportable 06/08/17 04:00 Spherocytes Not Reportable 06/08/17 04:00 Pappenheimer Bodies Not Reportable 06/08/17 04:00 Sickle Cells Not Reportable 06/08/17 04:00 Target Cells Not Reportable 06/08/17 04:00 Tear Drop Cells Not Reportable 06/08/17 04:00 Ovalocytes Not Reportable 06/08/17 04:00 Helmet Cells Not Reportable 06/08/17 04:00 [place] Bodies Not Reportable 06/08/17 04:00 Maize Rings Not Reportable 06/08/17 04:00 [place] Cells Not Reportable 06/08/17 04:00 Bite Cells Not Reportable 06/08/17 04:00 Crenated Cell Not Reportable 06/08/17 04:00 Elliptocytes Not Reportable 06/08/17 04:00 Acanthocytes (Spur) Not Reportable 06/08/17 04:00 Rouleaux Not Reportable 06/08/17 04:00 Hemoglobin C Crystals Not Reportable 06/08/17 04:00 Schistocytes Not Reportable 06/08/17 04:00 Malaria parasites Not Reportable 06/08/17 04:00 Williams Bodies Not Reportable 06/08/17 04:00 Hem Pathologist Commnt No 06/08/17 04:00 POC ABG pH 7.372 (7.35-7.45) 06/08/17 14:22 POC ABG pCO2 52.8 (35-45) H 06/08/17 14:22 POC ABG pO2 77 (80-105) L 06/08/17 14:22 POC ABG HCO3 30.7 06/08/17 14:22 POC ABG Total CO2 32 06/08/17 14:22 POC ABG O2 Sat 95 06/08/17 14:22 POC ABG Base Excess 5 06/08/17 14:22 POC Sodium 137 mmol/L (138-146) L 06/04/17 16:22 POC Potassium 5.3 (3.5-4.9) H 06/04/17 16:22 POC Chloride 102 (98-109) 06/04/17 16:22 FiO2 40 % 06/08/17 14:22 Sodium 139 mmol/L (137-145) 06/08/17 04:00 Potassium 4.3 mmol/L (3.6-5.0) D 06/08/17 04:00 Chloride 96.9 mmol/L (98-107) L 06/08/17 04:00 Carbon Dioxide 29 mmol/L (22-30) 06/08/17 04:00 Anion Gap 17 mmol/L 06/08/17 04:00 POC BUN 45 mg/dl (8-26) H 06/04/17 16:22 BUN 29 mg/dL (7-17) H 06/08/17 04:00 Creatinine 4.6 mg/dL (0.7-1.2) H 06/08/17 04:00 Estimated GFR 12 ml/min 06/08/17 04:00 BUN/Creatinine Ratio 6 % 06/08/17 04:00 Glucose 90 mg/dL (65-100) 06/08/17 04:00 POC Glucose 108 (70-105) H 06/08/17 11:25 Calcium 8.3 mg/dL (8.4-10.2) L 06/08/17 04:00 Phosphorus 4.50 mg/dL (2.5-4.5) 06/06/17 07:13 Magnesium 1.90 mg/dL (1.7-2.3) 06/06/17 07:13 Total Bilirubin 0.20 mg/dL (0.1-1.2) 06/06/17 07:13 AST 14 units/L (5-40) 06/06/17 07:13 ALT 15 units/L (7-56) 06/06/17 07:13 Alkaline Phosphatase 79 units/L (35-129) 06/06/17 07:13 Total Protein 5.7 g/dL (6.3-8.2) L 06/06/17 07:13 Albumin 3.3 g/dL (3.9-5) L 06/06/17 07:13 Albumin/Globulin Ratio 1.4 % 06/06/17 07:13 PTH Pre-Incision 641.9 (11.1-79.5) H 06/04/17 13:55 PTH Post-Excision 154.7 (11.1-79.5) H 06/04/17 13:55 PTH Intact Intraop 5 m Not Reportable 06/04/17 13:55
[2017-06-08] MEDS ORDERED: XYLOCAINE 1% 20 mL ONE (17:32)
--- NOTE | 2017-06-08 19:09 | Progress Note ---
Assessment and Plan Pt with acute stroke. Not related to catheter. Vascular Surgery present and appreciate access obtained by them. Discussed at length with family regarding CVA. Neuro/card consult recommended. Nothing surgical at this point. Subjective Date of service: 06/08/17 Narrative: Pt had acute stroke today when getting out of bed. Xray concerning for possible catheter in artery. CT completed shows TLC in VEIN not artery. Objective Vital Signs - 12hr 06/08/17 06/08/17 06/08/17 07:57 08:00 09:00 Temperature 98.6 F Pulse Rate 78 94 H Pulse Rate [ 78 From Monitor] Respiratory 16 20 Rate Blood Pressure 172/70 197/119 O2 Sat by Pulse 93 87 Oximetry 06/08/17 06/08/17 06/08/17 10:00 10:50 11:00 Temperature Pulse Rate 72 61 64 Pulse Rate [ From Monitor] Respiratory 21 24 17 Rate Blood Pressure 188/81 146/71 143/71 O2 Sat by Pulse 95 97 Oximetry 06/08/17 06/08/17 06/08/17 11:25 12:00 13:00 Temperature 98.0 F Pulse Rate 61 69 Pulse Rate [ 61 From Monitor] Respiratory 17 19 Rate Blood Pressure 146/71 140/70 O2 Sat by Pulse 99 98 Oximetry 06/08/17 06/08/17 06/08/17 14:00 15:00 15:11 Temperature Pulse Rate 66 66 Pulse Rate [ From Monitor] Respiratory 15 16 Rate Blood Pressure 167/82 177/91 177/91 O2 Sat by Pulse 100 Oximetry 06/08/17 06/08/17 06/08/17 16:00 16:09 17:00 Temperature 98.0 F Pulse Rate 75 Pulse Rate [ From Monitor] Respiratory 15 Rate Blood Pressure 152/73 O2 Sat by Pulse 98 Oximetry 06/08/17 18:00 Temperature Pulse Rate 71 Pulse Rate [ From Monitor] Respiratory 16 Rate Blood Pressure 176/73 O2 Sat by Pulse 100 Oximetry - General physical appearance well developed, well nourished - Eyes PERRL (incision clean) - Labs 06/08/17 04:00 06/08/17 04:00 Diabetes panel 06/08/17 Range/Units 04:00 Sodium 139 (137-145) mmol/L Potassium 4.3 D (3.6-5.0) mmol/L Chloride 96.9 L (98-107) mmol/L Carbon Dioxide 29 (22-30) mmol/L BUN 29 H (7-17) mg/dL Creatinine 4.6 H (0.7-1.2) mg/dL Glucose 90 (65-100) mg/dL Calcium 8.3 L (8.4-10.2) mg/dL Calcium panel 06/08/17 Range/Units 04:00 Calcium 8.3 L (8.4-10.2) mg/dL Pituitary panel 06/08/17 Range/Units 04:00 Sodium 139 (137-145) mmol/L Potassium 4.3 D (3.6-5.0) mmol/L Chloride 96.9 L (98-107) mmol/L Carbon Dioxide 29 (22-30) mmol/L BUN 29 H (7-17) mg/dL Creatinine 4.6 H (0.7-1.2) mg/dL Glucose 90 (65-100) mg/dL Calcium 8.3 L (8.4-10.2) mg/dL Adrenal panel 06/08/17 Range/Units 04:00 Sodium 139 (137-145) mmol/L Potassium 4.3 D (3.6-5.0) mmol/L Chloride 96.9 L (98-107) mmol/L Carbon Dioxide 29 (22-30) mmol/L BUN 29 H (7-17) mg/dL Creatinine 4.6 H (0.7-1.2) mg/dL Glucose 90 (65-100) mg/dL Calcium 8.3 L (8.4-10.2) mg/dL
--- NOTE | 2017-06-08 19:20 | Consultation ---
History of Present Illness - Reason for Consult Consult date: 06/08/17 stroke possible carotid artery injury Requesting physician: STEFANIE HERNANDEZ - History of Present Illness Mrs. Mckeon is a 66-year-old female who is several days postop from an elective subtotal parathyroidectomy for secondary hyperparathyroidism from end-stage renal disease. The surgical procedure went well however postoperatively she had respiratory difficulties and underwent reintubation. He operatively the patient had poor venous access and a central line was placed using fluoroscopy and duplex guidance into the left internal jugular vein by the operating surgeon., Confirmatory chest x-rays suggested the tip of the catheter was in the left brachiocephalic vein at the origin of the internal jugular. The patient was subsequently extubated and went to the bathroom this morning and developed right-sided hemiparesis. CT scan suggested a left MCA event with erythema. Subsequent examination of the chest x-rays cast some question on the position of the central line and there was concern that it was an intra- arterial placement rather than venous. We were consulted at that point to assist in the diagnosis and if necessary treatment of an advertent intra- arterial line placement. Past History Past Medical History: ESRD, hypertension, other (hyperparathyroidism) Past Surgical History: mastectomy, Other (Parathyroidectomy) Social history: single. denies: smoking, alcohol abuse, prescription drug abuse , IV drug use Family history: hypertension Medications and Allergies Allergies Allergy/AdvReac Type Severity Reaction Status Date / Time No Known Allergies Allergy Verified 06/01/17 16:40 Home Medications Medication Instructions Recorded Confirmed Last Taken Type Aspirin [Adult Low Dose Aspirin EC] 81 mg PO DAILY 06/01/17 06/04/17 06/02/17 History Cinacalcet HCl [Sensipar] 180 mg PO DAILY 06/01/17 06/01/17 06/03/17 History Furosemide [Lasix TAB] 80 mg PO QDAY 06/01/17 06/01/17 Unknown History Losartan [Cozaar] 100 mg PO QDAY 06/01/17 06/01/17 06/04/17 07:00 History Metoprolol [Lopressor TAB] 50 mg PO BID 06/01/17 06/01/17 06/04/17 07:00 History Sevelamer Carbonate [Renvela] 1,600 mg PO TIDWM 06/01/17 06/01/17 06/03/17 History Active Meds: Active Medications Lipase/Protease/Amylase (Joaquin Stallworth 10,500 Unit) 1 each FEEDTUBE PRN PRN PRN Reason: For Clogged Feeding Tube Aspirin (Baby Aspirin) 81 mg PO QDAY [facility] Atorvastatin Calcium (Lipitor) 40 mg PO QHS [facility] Bisacodyl (Dulcolax) 10 mg [place] QDAY PRN PRN Reason: constipation unrelieved by MOM Calcitriol (Rocaltrol) 0.5 mcg PO QDAY [facility] Last Admin: 06/08/17 10:25 Dose: Not Given Calcium Carbonate/Glycine (Tums) 1,000 mg PO TID [facility] Last Admin: 06/08/17 14:23 Dose: Not Given Dexamethasone (Decadron) 4 mg IV Q6HR [facility] Last Admin: 06/08/17 18:25 Dose: 4 mg Epoetin Riccardo (Procrit) 10,000 unit IV AKYLA PRN PRN Reason: hemodialysis Last Admin: 06/07/17 18:39 Dose: 10,000 unit Famotidine (Pepcid) 20 mg IV DAILY [facility] Last Admin: 06/08/17 12:19 Dose: 20 mg Heparin Sodium (Porcine) (Heparin) 5,000 unit SUB-Q Q12HR [facility] Last Admin: 06/08/17 10:06 Dose: 5,000 unit Hydralazine HCl (Apresoline) 5 mg IV Q6HR PRN PRN Reason: SBP>160 Last Admin: 06/08/17 15:11 Dose: 5 mg Hydrophilic Ointment (Vaseline Lip Therapy) 1 applic TP Q2HR PRN PRN Reason: Dry Lips Last Admin: 06/05/17 17:46 Dose: 1 applic Sodium Chloride (Nacl 0.9%) 100 mls @ 999 mls/hr IV KAYLA PRN PRN Reason: Hypotension Morphine Sulfate (Morphine) 2 mg IV Q4H PRN PRN Reason: Pain, Moderate (4-6) Last Admin: 06/07/17 13:14 Dose: 2 mg Multi-Ingred Cream/Lotion/Oil/Oint (Artificial Tears Ophth Oint) 1 applic OU Q4HR PRN PRN Reason: Dry Eye(s) Simple Syrup (Simple Syrup) 15 ml FEEDTUBE PRN PRN PRN Reason: Hypoglycemia Simple Syrup (Simple Syrup) 30 ml FEEDTUBE PRN PRN PRN Reason: Hypoglycemia Sodium Bicarbonate (Sodium Bicarbonate) 325 mg FEEDTUBE PRN PRN PRN Reason: For Clogged Feeding Tube Exam - Physical Exam Narrative exam: Patient is awake but noncommunicative. Oxygen mask is present. She responds to verbal stimuli and looks when spoken to but has no verbal response. There is a supraclavicular transverse incision that has no swelling. Left triple lumen is at the base of the neck overlying the internal jugular vein. There is no edema or swelling. She has a right mastectomy incision. As a left AV access in the upper arm. It has a good thrill and bruit. Lungs are clear without subcutaneous crepitance. There Is no hematoma. She has a protuberant abdomen. There is no leg swelling or edema. Her right upper extremity is flaccid. Left arm movement is normal. - Constitutional Vitals: Temp Pulse Resp BP Pulse Ox 98.0 F 71 16 176/73 100 06/08/17 16:00 06/08/17 18:00 06/08/17 18:00 06/08/17 18:00 06/08/17 18:00 Results - Labs CBC & Chem 7: 06/08/17 04:00 06/08/17 04:00 Labs: Abnormal lab results 06/07/17 06/08/17 06/08/17 Range/Units 23:32 04:00 04:00 MCV 77 L (79-97) fl MCH 23 L (28-32) pg RDW 18.3 H (13.2-15.2) % Seg Neuts % (Manual) 78.0 H (40.0-70.0) % Nucleated RBC % 3.0 H (0.0-0.9) % Seg Neutrophils # Man 7.8 H (1.8-7.7) K/mm3 POC ABG pH (7.35-7.45) POC ABG pCO2 (35-45) POC ABG pO2 (80-105) Chloride 96.9 L (98-107) mmol/L BUN 29 H (7-17) mg/dL Creatinine 4.6 H (0.7-1.2) mg/dL POC Glucose 63 L (70-105) Calcium 8.3 L (8.4-10.2) mg/dL 06/08/17 06/08/17 06/08/17 Range/Units 10:51 11:25 14:22 MCV (79-97) fl MCH (28-32) pg RDW (13.2-15.2) % Seg Neuts % (Manual) (40.0-70.0) % Nucleated RBC % (0.0-0.9) % Seg Neutrophils # Man (1.8-7.7) K/mm3 POC ABG pH 7.336 L (7.35-7.45) POC ABG pCO2 55.1 H 52.8 H (35-45) POC ABG pO2 77 L (80-105) Chloride (98-107) mmol/L BUN (7-17) mg/dL Creatinine (0.7-1.2) mg/dL POC Glucose 108 H (70-105) Calcium (8.4-10.2) mg/dL - Imaging and Cardiology Chest x-ray: report reviewed, image reviewed (central line on the left neck slightly to the left but the images rotated. The tip could still be in the internal jugular vein at its confluence with the innominate vein. The catheter is not clearly in the artery.) CT scan - chest: image reviewed (evaluation of the CT scan of the neck and chest strongly suggestive the tip of the venous catheter is in the internal jugular vein at its origin and not in the artery.) CT Scan - head: report reviewed, image reviewed (edema in the left MCA distribution) Venous US: image reviewed (duplex scan of the carotids shows it to be widely patent this no hematoma. Not able to easily visualize the entrance site of the catheter into the vein. The secondary to bony prominence of the clavicle and the recent surgery.) Assessment and Plan - Patient Problems (1) Stroke Onset Date: ~06/08/17 Current Visit: Yes Status: Acute Qualifiers: CVA mechanism: unspecified Precerebral and cerebral artery: P Laterality of affected vessel: L Qualified Code(s): I63.9 - Cerebral infarction, unspecified Plan to address problem: The central line appears to be located completely and the internal jugular vein and does not appear to be the culprit and the development of her stroke. I will interpretation of the CTA is pending but I personally reviewed the films along with the primary surgeon and we are all in agreement as to its location. He did have a duplex scan of the lower extremities to rule out DVT however the possibility of a paradoxical embolism has not been ruled out and should be considered by cardiology. Neurology consultation is requested to assist in uncovering etiology. Cardiac embolism is also a possibility and should be evaluated by the cardiology group. Standard CVA protocols should be initiated. At this time there does not appear the need for surgical intervention. I should mention that we did start a peripheral line in her right antecubital fossa using sterile technique and duplex guidance so that the central line can be removed once the final CT report has been rendered. I was previously not started because of the patient's history of mastectomy and concerns over avoidance of venipuncture however circumstances suggest that this is the appropriate place for a peripheral line. (2) ESRD (end stage renal disease) on dialysis Current Visit: Yes Status: Chronic Plan to address problem: Patient had an arterial blood gas drawn through the triple-lumen which had elevated oxygen levels 4. Venous blood. This suggested to the chain machine operator that the catheter may be in the artery however the tip of the catheter is on the same side as the AV fistula and therefore is seeing partially oxygenated blood from that access thus giving a falsely elevated PO2 in the wrong impression that the catheter was intra-arterial. This is probably the expected PO2 level ipsilateral to an active functioning AV fistula which has arterialized blood
--- NOTE | 2017-06-08 21:01 | Cat Scan Report ---
FINAL REPORT EXAM: CT ANGIO NECK HISTORY: Possible arterial CVL placement TECHNIQUE: Serial axial images through the neck during intravenous administration of 100 milliliters Omnipaque 350 contrast with coronal, sagittal and oblique MIP reconstruction PRIORS: None. FINDINGS: There is asymmetric hypodensity in the visualized portion of the left cerebral hemisphere. The distal left internal carotid artery and left middle cerebral artery are unopacified. Small amount of contrast is seen in some of the left middle cerebral artery branches. Orbits appear fairly symmetric. Paranasal sinuses and mastoid air cells are well aerated. There is osseous fusion of the C2 and C3 vertebra. No acute osseous abnormality is identified. There is patchy opacity in the posterior aspect of the left upper lobe. The main pulmonary artery measures 4.4 centimeters in diameter. The ascending aorta measures 3.4 centimeters in diameter at the same level. Thyroid gland, submandibular glands and parotid glands appear within normal limits. There is a left internal jugular central venous catheter that courses to level of the brachiocephalic vein. IMPRESSION: 1. The left internal jugular central venous catheter courses to the level of the brachiocephalic vein. The tip can be seen series 3, image 16. 2. There is evidence of thrombus in the distal left internal carotid artery and middle cerebral artery with ball amount of contrast seen in middle cerebral artery branches distal to this. There is hypodensity in visualized portion of the left middle cerebral artery territory, consistent with subacute infarct. There are currently no studies available for direct comparison. 3. There is enlargement of the main pulmonary artery suggesting pulmonary hypertension. 4. There is increased opacity in the posterior aspect of the left upper lobe which may be secondary to infection and or atelectasis. C1
[2017-06-09] MEDS: DECADRON IV SCH ×3 (06:06→21:15)
[2017-06-09] MEDS: TUMS PO SCH ×4 (06:06→20:43)
--- NOTE | 2017-06-09 07:54 | Vascular Lab Report ---
LOWER EXTREMITY VENOUS DUPLEX: REASON FOR EXAM: Possible paradoxical embolism. COMMENTS ON THE RIGHT: All veins visualized are freely compressible without evidence of internal echogenicity. Flow is spontaneous and phasic throughout. COMMENTS ON THE LEFT: All veins visualized are freely compressible without evidence of internal echogenicity. Flow is spontaneous and phasic throughout. IMPRESSION: No evidence of acute or chronic deep venous thrombosis in either lower extremity.
--- NOTE | 2017-06-09 08:04 | Vascular Lab Report ---
MISCELLANEOUS VESSEL IDENTIFICATION: COMMENTS ON THE SCAN: The right cephalic vein was identified and under real-time ultrasound guidance was cannulated. IMPRESSION: Successful ultrasound guided vein cannulation.
--- NOTE | 2017-06-09 08:30 | Consultation ---
History of Present Illness - Reason for Consult Consult date: 06/09/17 stroke - History of Present Illness I have seen the patient and plan to stdy images with radiology could be clot in the distal ICA from thrombus rec ECHO I spoke to son about clinical situation Thanks Past History Past Medical History: ESRD, hypertension, other (hyperparathyroidism) Past Surgical History: mastectomy, Other (Parathyroidectomy) Social history: single. denies: smoking, alcohol abuse, prescription drug abuse , IV drug use Family history: hypertension Medications and Allergies Allergies Allergy/AdvReac Type Severity Reaction Status Date / Time No Known Allergies Allergy Verified 06/01/17 16:40 Home Medications Medication Instructions Recorded Confirmed Last Taken Type Aspirin [Adult Low Dose Aspirin EC] 81 mg PO DAILY 06/01/17 06/04/17 06/02/17 History Cinacalcet HCl [Sensipar] 180 mg PO DAILY 06/01/17 06/01/17 06/03/17 History Furosemide [Lasix TAB] 80 mg PO QDAY 06/01/17 06/01/17 Unknown History Losartan [Cozaar] 100 mg PO QDAY 06/01/17 06/01/17 06/04/17 07:00 History Metoprolol [Lopressor TAB] 50 mg PO BID 06/01/17 06/01/17 06/04/17 07:00 History Sevelamer Carbonate [Renvela] 1,600 mg PO TIDWM 06/01/17 06/01/17 06/03/17 History Active Meds: Active Medications Lipase/Protease/Amylase (Pancrexavi Dr 10,500 Unit) 1 each FEEDTUBE PRN PRN PRN Reason: For Clogged Feeding Tube Aspirin (Baby Aspirin) 81 mg PO QDAY [facility] Atorvastatin Calcium (Lipitor) 40 mg PO QHS [facility] Last Admin: 06/09/17 06:07 Dose: Not Given Bisacodyl (Dulcolax) [address] QDAY PRN PRN Reason: constipation unrelieved by MOM Calcitriol (Rocaltrol) 0.5 mcg PO QDAY [facility] Last Admin: 06/08/17 10:25 Dose: Not Given Calcium Carbonate/Glycine (Tums) 1,000 mg PO TID [facility] Last Admin: 06/09/17 06:06 Dose: Not Given Dexamethasone (Decadron) 4 mg IV Q6HR [facility] Last Admin: 06/09/17 06:06 Dose: 4 mg Epoetin Riccardo (Procrit) 10,000 unit IV KAYLA PRN PRN Reason: hemodialysis Last Admin: 06/07/17 18:39 Dose: 10,000 unit Famotidine (Pepcid) 20 mg IV DAILY [facility] Last Admin: 06/08/17 12:19 Dose: 20 mg Heparin Sodium (Porcine) (Heparin) 5,000 unit SUB-Q Q12HR [facility] Last Admin: 06/08/17 23:53 Dose: 5,000 unit Hydralazine HCl (Apresoline) 5 mg IV Q6HR PRN PRN Reason: SBP>160 Last Admin: 06/08/17 20:10 Dose: 5 mg Hydrophilic Ointment (Vaseline Lip Therapy) 1 applic TP Q2HR PRN PRN Reason: Dry Lips Last Admin: 06/05/17 17:46 Dose: 1 applic Sodium Chloride (Nacl 0.9%) 100 mls @ 999 mls/hr IV KAYLA PRN PRN Reason: Hypotension Morphine Sulfate (Morphine) 2 mg IV Q4H PRN PRN Reason: Pain, Moderate (4-6) Last Admin: 06/07/17 13:14 Dose: 2 mg Multi-Ingred Cream/Lotion/Oil/Oint (Artificial Tears Ophth Oint) 1 applic OU Q4HR PRN PRN Reason: Dry Eye(s) Simple Syrup (Simple Syrup) 15 ml FEEDTUBE PRN PRN PRN Reason: Hypoglycemia Simple Syrup (Simple Syrup) 30 ml FEEDTUBE PRN PRN PRN Reason: Hypoglycemia Sodium Bicarbonate (Sodium Bicarbonate) 325 mg FEEDTUBE PRN PRN PRN Reason: For Clogged Feeding Tube Exam - Constitutional Vitals: Temp Pulse Resp BP Pulse Ox 98.8 F 65 14 158/75 100 06/09/17 04:00 06/09/17 08:00 06/09/17 08:00 06/09/17 08:00 06/09/17 08:00 Results - Labs CBC & Chem 7: 06/08/17 04:00 06/08/17 04:00 Labs: Abnormal lab results 06/08/17 06/08/17 06/08/17 Range/Units 10:51 11:25 14:22 POC ABG pH 7.336 L (7.35-7.45) POC ABG pCO2 55.1 H 52.8 H (35-45) POC ABG pO2 77 L (80-105) POC Glucose 108 H (70-105)
--- NOTE | 2017-06-09 09:18 | Consultation ---
HISTORY OF PRESENT ILLNESS: This is a 66-year-old black female who is being seen at the request of urgent physician. The patient apparently was stable up until the day prior to admission, she began to experience difficulty with walking and difficulty with confusion, was brought to the hospital and placed on CPAP because of asthma, acute respiratory distress syndrome and the patient subsequently was admitted and at some point during her hospitalization, she began to experience symptoms of speech difficulty and right-sided weakness. She had a CT scan of the head, which showed evidence of an acute middle cerebral artery stroke and the patient had in the interval a CTA of the head, which according to the CTA report shows thrombus in the distal left internal carotid artery, middle cerebral artery with large amount of contrast in middle cerebral artery, distal. PHYSICAL EXAMINATION: NEUROLOGIC: The patient at this point shows her to be profoundly weak on the right side. She is alert, nonetheless, but does not speak. She has flaccid paralysis of the right arm and right leg. The patient's neck is supple. She has no seizure activity. She has a gaze to the left. Does not attempt to speak, but does seem to recognize her family members sitting here in the room. She is completely able to follow commands such as lift up the left arm, left leg, but she does not move the right side even on painful stimulation. I would estimate her NIH stroke scale to be 9. IMPRESSION: This patient has an acute left middle cerebral artery stroke. I want to review the CTA with the radiologist and to determine whether this could potentially be an embolus, otherwise medical therapy is indicated. She is certainly not a TPA candidate at this point. I spoke with the son, we will be recommending physical therapy and speech therapy. It would be worthwhile if we will get an echocardiogram to assess this and look at those results from the echo. Etiology of stroke at this point is unclear, but I would like to study the imaging studies with the radiologist for more definite conclusion. JOB# [id number] JACKIE/BARBI
--- NOTE | 2017-06-09 09:47 | XRay Report ---
AP CHEST: HISTORY: Followup respiratory failure Mild cardiomegaly and borderline central pulmonary venous congestion are stable. The lungs remain are clear. No evidence for pneumonia, CHF or pneumothorax. The left IJ it vascular catheter is unchanged in position and presumably terminates in the left brachiocephalic vein. IMPRESSION: Stable cardiomegaly. No acute cardiopulmonary process.
--- NOTE | 2017-06-09 09:59 | Progress Note ---
Assessment and Plan Impression: * ESRD * hypertension * s/p parathyroidectomy * Anemia in esrd * respiratory failure * Acute CVA Plan: * hd q mwf * added tums and calcitriol * iv calcium prn * neurology and vascular notes reviewed * cva workup in progress * uf as tolerated with hd * high calcium bath with hd * epogen with hd * strict i/os * follow up am darryl Subjective Date of service: 06/09/17 Principal diagnosis: Inadequate ventilation Interval history: no new complaints Objective - Exam Narrative Exam: General appearance: Present: severe distress, obese - EENT Eyes: Present: PERRL ENT: hearing intact, clear oral mucosa - Neck Neck: Present: supple, normal ROM - Respiratory Respiratory effort: labored Respiratory: bilateral: diminished - Cardiovascular Heart Sounds: Present: S1 & S2. Absent: rub, click - Extremities Extremities: pulses symmetrical, No edema Extremity abnormal: edema Peripheral Pulses: within normal limits - Abdominal Female genitourinary: Present: normal - Integumentary Integumentary: Present: clear, warm, dry - Musculoskeletal Musculoskeletal: generalized weakness - Psychiatric Psychiatric: no intact judgment & insight, no memory intact, agitated - Neurologic Neurologic: CNII-XII intact, moves all extremities - Vital Signs Vital signs: Vital Signs - 12hr 06/08/17 06/08/17 06/08/17 22:00 23:00 23:21 Temperature Pulse Rate 66 61 68 Pulse Rate [ From Monitor] Respiratory 15 11 L 22 Rate Blood Pressure 140/55 160/76 160/76 O2 Sat by Pulse 97 98 98 Oximetry 06/08/17 06/09/17 06/09/17 23:41 00:01 01:01 Temperature 98.3 F Pulse Rate 64 61 Pulse Rate [ From Monitor] Respiratory 14 14 Rate Blood Pressure 123/56 150/55 O2 Sat by Pulse 97 99 Oximetry 06/09/17 06/09/17 06/09/17 02:01 03:00 03:21 Temperature Pulse Rate 62 60 58 L Pulse Rate [ From Monitor] Respiratory 17 14 12 Rate Blood Pressure 163/70 156/73 156/73 O2 Sat by Pulse 98 98 99 Oximetry 06/09/17 06/09/17 06/09/17 03:30 04:00 04:30 Temperature 98.8 F Pulse Rate 57 L 58 L 57 L Pulse Rate [ From Monitor] Respiratory 13 15 12 Rate Blood Pressure 140/58 133/63 147/64 O2 Sat by Pulse 98 98 97 Oximetry 06/09/17 06/09/17 06/09/17 05:00 05:30 06:00 Temperature Pulse Rate 62 65 62 Pulse Rate [ From Monitor] Respiratory 16 17 15 Rate Blood Pressure 160/91 153/72 152/70 O2 Sat by Pulse 99 99 100 Oximetry 06/09/17 06/09/17 06/09/17 06:30 07:00 07:30 Temperature Pulse Rate 64 63 63 Pulse Rate [ From Monitor] Respiratory 16 15 16 Rate Blood Pressure 159/81 161/69 168/72 O2 Sat by Pulse 100 99 99 Oximetry 06/09/17 08:00 Temperature 97.3 F L Pulse Rate 63 Pulse Rate [ 65 From Monitor] Respiratory 15 Rate Blood Pressure 158/75 O2 Sat by Pulse 100 Oximetry - Lab 06/08/17 04:00 06/08/17 04:00 Most recent lab results Calcium 8.3 mg/dL (8.4-10.2) L 06/08/17 04:00 Phosphorus 4.50 mg/dL (2.5-4.5) 06/06/17 07:13 Magnesium 1.90 mg/dL (1.7-2.3) 06/06/17 07:13
[2017-06-09] MEDS: ROCALTROL PO SCH (10:00)
[2017-06-09] MEDS ORDERED: PANCREAZE DR 10,500 UNIT FEEDTUBE PRN (11:38)
[2017-06-09] MEDS ORDERED: SODIUM BICARBONATE FEEDTUBE PRN (11:38)
[2017-06-09] MEDS ORDERED: SIMPLE SYRUP FEEDTUBE PRN ×2 (11:38)
[2017-06-09 12:26] LABS: Hematocrit 35.6 % (30.3-42.9); Hemoglobin 11.3 gm/dl (10.1-14.3); Mean Corpuscular HGB Conc 32 % (30-34); Mean Corpuscular Volume 76 fl (79-97); Platelet Count 228 K/mm3 (140-440); Red Blood Count 4.71 M/mm3 (3.65-5.03); Red Cell Distribution Width 18.3 % (13.2-15.2); White Blood Count 9.5 K/mm3 (4.5-11.0)
[2017-06-09 12:29] LABS: Mean Corpuscular Hemoglobin 24 pg (28-32)
[2017-06-09 12:30] LABS: Calcium 7.2 mg/dL (8.4-10.2); Chloride 97.1 mmol/L (98-107); Potassium 5.4 mmol/L (3.6-5.0)
[2017-06-09] MEDS: HEPARIN SUB-Q SCH ×2 (12:34→21:44)
[2017-06-09] MEDS: PEPCID IV SCH (12:34)
--- NOTE | 2017-06-09 12:49 | Progress Note ---
Assessment and Plan Imp: 1. Hyperparathyroidism s/p parathyroidectomy 2. Acute respiratory failure, hypoxia/hypercapnea 3. Morbid obesity 4. ESRD 5. Laryngeal edema/stridor 6. Acute CVA, ? embolic given clot noted on CTA neck Rec: 1. Still with mild stridor but better -> can taper the Decadron 2. Racemic EPI prn 3. Wean O2 to keep sats 88-94% 4. L IJ CVL position confirmed; would not pull yet as patient with difficult access/multiple issues, and may yet need central access depending on clinical course 5. ASA, statin 6. Echo, carotid dopplers 7. HD today 8. + Clot in distal L ICA and MCA; would start heparin drip standard intensity with no bolus (d/w Dr. Singh who is okay w/ this) 9. ST/PT/OT 10. DHT with TFs/free water/oral meds 11. Aspiration precautions, d/w RN 12. Guarded prognosis CCT 31 minutes; updated son at bedside Subjective Date of service: 06/09/17 Principal diagnosis: Inadequate ventilation Interval history: No events. Awake, alert, aphasic, R-sided paresis. Hx not obtainable. Active Medications Lipase/Protease/Amylase (Joaquin Stallworth 10,500 Unit) 1 each FEEDTUBE PRN PRN PRN Reason: For Clogged Feeding Tube Lipase/Protease/Amylase (Joaquin Stallworth 10,500 Unit) 1 each FEEDTUBE PRN PRN PRN Reason: For Clogged Feeding Tube Aspirin (Baby Aspirin) 81 mg PO QDAY [facility] Atorvastatin Calcium (Lipitor) 40 mg PO QHS [facility] Last Admin: 06/09/17 06:07 Dose: Not Given Bisacodyl (Dulcolax) 10 mg RI QDAY PRN PRN Reason: constipation unrelieved by MOM Calcitriol (Rocaltrol) 0.5 mcg PO QDAY [facility] Last Admin: 06/08/17 10:25 Dose: Not Given Calcium Carbonate/Glycine (Tums) 1,000 mg PO TID [facility] Last Admin: 06/09/17 06:06 Dose: Not Given Dexamethasone (Decadron) 4 mg IV BID [facility] Epoetin Riccardo (Procrit) 10,000 unit IV KAYLA PRN PRN Reason: hemodialysis Last Admin: 06/07/17 18:39 Dose: 10,000 unit Famotidine (Pepcid) 20 mg IV DAILY [facility] Last Admin: 06/09/17 12:34 Dose: 20 mg Hydralazine HCl (Apresoline) 5 mg IV Q6HR PRN PRN Reason: SBP>160 Last Admin: 06/08/17 20:10 Dose: 5 mg Hydrophilic Ointment (Vaseline Lip Therapy) 1 applic TP Q2HR PRN PRN Reason: Dry Lips Last Admin: 06/05/17 17:46 Dose: 1 applic Sodium Chloride (Nacl 0.9%) 100 mls @ 999 mls/hr IV KAYLA PRN PRN Reason: Hypotension Heparin Sodium/Sodium Chloride (Heparin/ 0.45% Nacl-25,000 Unit/500 Ml) 25,000 unit in 500 mls @ 36.741 mls/hr IV TITR JANE; 15 UNITS/KG/HR PRN Reason: Protocol Morphine Sulfate (Morphine) 2 mg IV Q4H PRN PRN Reason: Pain, Moderate (4-6) Last Admin: 06/07/17 13:14 Dose: 2 mg Multi-Ingred Cream/Lotion/Oil/Oint (Artificial Tears Ophth Oint) 1 applic OU Q4HR PRN PRN Reason: Dry Eye(s) Simple Syrup (Simple Syrup) 15 ml FEEDTUBE PRN PRN PRN Reason: Hypoglycemia Simple Syrup (Simple Syrup) 30 ml FEEDTUBE PRN PRN PRN Reason: Hypoglycemia Simple Syrup (Simple Syrup) 15 ml FEEDTUBE PRN PRN PRN Reason: Hypoglycemia Simple Syrup (Simple Syrup) 30 ml FEEDTUBE PRN PRN PRN Reason: Hypoglycemia Sodium Bicarbonate (Sodium Bicarbonate) 325 mg FEEDTUBE PRN PRN PRN Reason: For Clogged Feeding Tube Sodium Bicarbonate (Sodium Bicarbonate) 325 mg FEEDTUBE PRN PRN PRN Reason: For Clogged Feeding Tube Objective Vital Signs - 12hr 06/09/17 06/09/17 06/09/17 01:01 02:01 03:00 Temperature Pulse Rate 61 62 60 Pulse Rate [ From Monitor] Respiratory 14 17 14 Rate Blood Pressure 150/55 163/70 156/73 O2 Sat by Pulse 99 98 98 Oximetry 06/09/17 06/09/17 06/09/17 03:21 03:30 04:00 Temperature 98.8 F Pulse Rate 58 L 57 L 58 L Pulse Rate [ From Monitor] Respiratory 12 13 15 Rate Blood Pressure 156/73 140/58 133/63 O2 Sat by Pulse 99 98 98 Oximetry 06/09/17 06/09/17 06/09/17 04:30 05:00 05:30 Temperature Pulse Rate 57 L 62 65 Pulse Rate [ From Monitor] Respiratory 12 16 17 Rate Blood Pressure 147/64 160/91 153/72 O2 Sat by Pulse 97 99 99 Oximetry 06/09/17 06/09/17 06/09/17 06:00 06:30 07:00 Temperature Pulse Rate 62 64 63 Pulse Rate [ From Monitor] Respiratory 15 16 15 Rate Blood Pressure 152/70 159/81 161/69 O2 Sat by Pulse 100 100 99 Oximetry 06/09/17 06/09/17 06/09/17 07:30 08:00 10:00 Temperature 97.3 F L Pulse Rate 63 63 Pulse Rate [ 65 From Monitor] Respiratory 16 15 Rate Blood Pressure 168/72 158/75 O2 Sat by Pulse 99 100 95 Oximetry 06/09/17 11:41 Temperature Pulse Rate Pulse Rate [ From Monitor] Respiratory Rate Blood Pressure O2 Sat by Pulse 95 Oximetry Constitutional: alert, other (critically ill) Eyes: non-icteric Neck: supple, other (mild stridor) Effort: normal Ascultation: Bilateral: clear Cardiovascular: regular rate and rhythm (no mrg) Gastrointestinal: normoactive bowel sounds, soft, non-tender, non-distended, other (obese) Integumentary: normal Extremities: no cyanosis, no edema, pink and warm, edema Neurologic: other (altered mentation, R-hemiparesis) Psychiatric: mood appropriate, affect normal CBC and BMP: 06/09/17 11:42 06/09/17 11:42 ABG, PT/INR, D-dimer: ABG POC ABG pH 7.372 (7.35-7.45) 06/08/17 14:22 POC ABG pCO2 52.8 (35-45) H 06/08/17 14:22 POC ABG pO2 77 (80-105) L 06/08/17 14:22 POC ABG HCO3 30.7 06/08/17 14:22 POC ABG Total CO2 32 06/08/17 14:22 POC ABG O2 Sat 95 06/08/17 14:22 Abnormal lab findings: Abnormal Labs 06/04/17 06/04/17 06/04/17 00:01 12:50 13:55 WBC 11.4 H POC Hct MCV 76 L MCH 23 L RDW 18.5 H Seg Neuts % (Manual) 89.0 H Lymphocytes % (Manual) 6.0 L Nucleated RBC % Seg Neutrophils # Man 10.1 H Lymphocytes # (Manual) 0.7 L POC ABG pH POC ABG pCO2 POC ABG pO2 POC Sodium POC Potassium Potassium 5.1 H 5.2 H Chloride POC BUN BUN 48 H Creatinine 6.2 H Glucose POC Glucose Calcium Total Protein Albumin PTH Pre-Incision PTH Post-Excision 06/04/17 06/04/17 06/04/17 13:55 16:10 16:16 WBC POC Hct 37 L MCV MCH RDW Seg Neuts % (Manual) Lymphocytes % (Manual) Nucleated RBC % Seg Neutrophils # Man Lymphocytes # (Manual) POC ABG pH 7.306 L POC ABG pCO2 58.7 H POC ABG pO2 338 H POC Sodium 135 L POC Potassium 5.2 H Potassium Chloride POC BUN 44 H BUN Creatinine Glucose POC Glucose 183 H Calcium Total Protein Albumin PTH Pre-Incision 641.9 H PTH Post-Excision 154.7 H 06/04/17 06/04/17 06/04/17 16:22 20:44 21:29 WBC POC Hct MCV MCH RDW Seg Neuts % (Manual) Lymphocytes % (Manual) Nucleated RBC % Seg Neutrophils # Man Lymphocytes # (Manual) POC ABG pH 7.484 H POC ABG pCO2 POC ABG pO2 POC Sodium 137 L POC Potassium 5.3 H Potassium 5.2 H Chloride POC BUN 45 H BUN 51 H Creatinine 6.5 H Glucose 119 H POC Glucose 176 H Calcium Total Protein Albumin PTH Pre-Incision PTH Post-Excision 06/05/17 06/05/17 06/05/17 03:31 11:44 11:44 WBC 13.4 H POC Hct MCV 75 L MCH 23 L RDW 18.2 H Seg Neuts % (Manual) Lymphocytes % (Manual) Nucleated RBC % Seg Neutrophils # Man Lymphocytes # (Manual) POC ABG pH POC ABG pCO2 POC ABG pO2 75 L POC Sodium POC Potassium Potassium 5.8 H Chloride POC BUN BUN 56 H Creatinine 7.0 H Glucose 111 H POC Glucose Calcium 8.2 L Total Protein 6.2 L Albumin 3.1 L PTH Pre-Incision PTH Post-Excision 06/06/17 06/06/17 06/07/17 05:07 07:13 03:53 WBC POC Hct MCV MCH RDW Seg Neuts % (Manual) Lymphocytes % (Manual) Nucleated RBC % Seg Neutrophils # Man Lymphocytes # (Manual) POC ABG pH POC ABG pCO2 POC ABG pO2 116 H 137 H POC Sodium POC Potassium Potassium Chloride POC BUN BUN 32 H Creatinine 4.9 H Glucose 115 H POC Glucose Calcium 7.9 L Total Protein 5.7 L Albumin 3.3 L PTH Pre-Incision PTH Post-Excision 06/07/17 06/07/17 06/07/17 05:21 05:21 16:54 WBC POC Hct MCV 75 L MCH 24 L RDW 18.7 H Seg Neuts % (Manual) Lymphocytes % (Manual) Nucleated RBC % Seg Neutrophils # Man Lymphocytes # (Manual) POC ABG pH POC ABG pCO2 POC ABG pO2 POC Sodium POC Potassium Potassium 5.4 H Chloride POC BUN BUN 52 H Creatinine 6.2 H Glucose 107 H POC Glucose 110 H Calcium 8.0 L Total Protein Albumin PTH Pre-Incision PTH Post-Excision 06/07/17 06/07/17 06/08/17 17:38 23:32 04:00 WBC POC Hct MCV 77 L MCH 23 L RDW 18.3 H Seg Neuts % (Manual) 78.0 H Lymphocytes % (Manual) Nucleated RBC % 3.0 H Seg Neutrophils # Man 7.8 H Lymphocytes # (Manual) POC ABG pH 7.310 L POC ABG pCO2 51.9 H POC ABG pO2 POC Sodium POC Potassium Potassium Chloride POC BUN BUN Creatinine Glucose POC Glucose 63 L Calcium Total Protein Albumin PTH Pre-Incision PTH Post-Excision 06/08/17 06/08/17 06/08/17 04:00 10:51 11:25 WBC POC Hct MCV MCH RDW Seg Neuts % (Manual) Lymphocytes % (Manual) Nucleated RBC % Seg Neutrophils # Man Lymphocytes # (Manual) POC ABG pH 7.336 L POC ABG pCO2 55.1 H POC ABG pO2 POC Sodium POC Potassium Potassium Chloride 96.9 L POC BUN BUN 29 H Creatinine 4.6 H Glucose POC Glucose 108 H Calcium 8.3 L Total Protein Albumin PTH Pre-Incision PTH Post-Excision 06/08/17 06/09/17 06/09/17 14:22 11:42 11:42 WBC POC Hct MCV 76 L MCH 24 L RDW 18.3 H Seg Neuts % (Manual) Lymphocytes % (Manual) Nucleated RBC % Seg Neutrophils # Man Lymphocytes # (Manual) POC ABG pH POC ABG pCO2 52.8 H POC ABG pO2 77 L POC Sodium POC Potassium Potassium 5.4 H D Chloride 97.1 L POC BUN BUN 58 H Creatinine 6.6 H Glucose POC Glucose Calcium 7.2 L Total Protein Albumin PTH Pre-Incision PTH Post-Excision Chest x-ray: report reviewed, image reviewed
[2017-06-09] MEDS ORDERED: HEPARIN/ 0.45% NACL-25,000 UNIT/500 ML 25,000 UNIT/500 ML BAG IV SCH (13:00)
--- NOTE | 2017-06-09 13:39 | XRay Report ---
SUPINE KUB: History: Dobbhoff tube placement. The distal tip of the Dobbhoff tube terminates in the antrum of the stomach near the pylorus. The abdominal gas pattern is unremarkable. No masses or organomegaly is identified and there is no gross evidence of free air or fluid. No significant soft tissue calcifications are noted. IMPRESSION: The Dobbhoff tube terminates in the distal stomach.
[2017-06-09 14:25] LABS: Basophils % (Manual) 0 % (0.0-1.8); Blastocytes % (Manual) 0 %; Eosinophils % (Manual) 0 % (0.0-4.3)
[2017-06-09 14:26] LABS: Diff Status Complete; Hypochromasia 1+; Polychromasia 1+; Target Cells Few
--- NOTE | 2017-06-09 14:59 | Progress Note ---
Assessment and Plan Pt re-evaluated earlier this am. Pt s/p CVA with right sided weakness (?etiology). Pt s/p LIJ TLC that does not appear to be the source of the stroke. There was initial concern that it may have been placed intra-arterial based upon CXR and abnormal ABG results . CT scan confirmed the placement into the Internal Juglar placement. Peripheral line placed last pm. IJ Catheter likely to be removed later today. Suspect the abnormal ABG results related to an ipsilateral avf which likely resulted in the mixed arterial/venous findings. Discussed the pt with the Animal Laboratory Helper, Neurology has been consulted and a stroke w/u will be initiated. Subjective Date of service: 06/09/17 Principal diagnosis: Inadequate ventilation Interval history: Pt awake, but did not communicate verbally. Objective - Constitutional Vitals: Vital Signs - 12hr 06/09/17 06/09/17 06/09/17 03:00 03:21 03:30 Temperature Pulse Rate 60 58 L 57 L Pulse Rate [ From Monitor] Respiratory 14 12 13 Rate Blood Pressure 156/73 156/73 140/58 O2 Sat by Pulse 98 99 98 Oximetry O2 Sat by Pulse Oximetry [ Anterior Bilateral Throughout] 06/09/17 06/09/17 06/09/17 04:00 04:30 05:00 Temperature 98.8 F Pulse Rate 58 L 57 L 62 Pulse Rate [ From Monitor] Respiratory 15 12 16 Rate Blood Pressure 133/63 147/64 160/91 O2 Sat by Pulse 98 97 99 Oximetry O2 Sat by Pulse Oximetry [ Anterior Bilateral Throughout] 06/09/17 06/09/17 06/09/17 05:30 06:00 06:30 Temperature Pulse Rate 65 62 64 Pulse Rate [ From Monitor] Respiratory 17 15 16 Rate Blood Pressure 153/72 152/70 159/81 O2 Sat by Pulse 99 100 100 Oximetry O2 Sat by Pulse Oximetry [ Anterior Bilateral Throughout] 06/09/17 06/09/17 06/09/17 07:00 07:30 08:00 Temperature 97.3 F L Pulse Rate 63 63 63 Pulse Rate [ 65 From Monitor] Respiratory 15 16 15 Rate Blood Pressure 161/69 168/72 158/75 O2 Sat by Pulse 99 99 100 Oximetry O2 Sat by Pulse Oximetry [ Anterior Bilateral Throughout] 06/09/17 06/09/17 06/09/17 08:30 09:00 09:30 Temperature Pulse Rate 62 65 66 Pulse Rate [ From Monitor] Respiratory 15 15 16 Rate Blood Pressure 157/74 162/77 157/73 O2 Sat by Pulse 99 96 98 Oximetry O2 Sat by Pulse Oximetry [ Anterior Bilateral Throughout] 06/09/17 06/09/17 06/09/17 10:00 10:30 11:00 Temperature Pulse Rate 61 63 67 Pulse Rate [ From Monitor] Respiratory 15 16 14 Rate Blood Pressure 161/71 161/75 156/72 O2 Sat by Pulse 99 99 99 Oximetry O2 Sat by Pulse Oximetry [ Anterior Bilateral Throughout] 06/09/17 06/09/17 06/09/17 11:30 11:41 12:00 Temperature 98.1 F Pulse Rate 63 61 Pulse Rate [ From Monitor] Respiratory 13 15 Rate Blood Pressure 162/68 163/72 O2 Sat by Pulse 98 95 100 Oximetry O2 Sat by Pulse Oximetry [ Anterior Bilateral Throughout] 06/09/17 06/09/17 06/09/17 12:30 13:00 13:30 Temperature 98.0 F Pulse Rate 62 69 61 Pulse Rate [ From Monitor] Respiratory 15 18 16 Rate Blood Pressure 165/69 172/73 164/56 O2 Sat by Pulse 98 100 100 Oximetry O2 Sat by Pulse 99 Oximetry [ Anterior Bilateral Throughout] 06/09/17 06/09/17 06/09/17 13:45 14:00 14:15 Temperature Pulse Rate 61 60 59 L Pulse Rate [ From Monitor] Respiratory 15 Rate Blood Pressure 164/56 178/81 160/76 O2 Sat by Pulse 100 Oximetry O2 Sat by Pulse Oximetry [ Anterior Bilateral Throughout] 06/09/17 06/09/17 14:30 14:45 Temperature Pulse Rate 56 L 67 Pulse Rate [ From Monitor] Respiratory Rate Blood Pressure 186/74 184/82 O2 Sat by Pulse Oximetry O2 Sat by Pulse Oximetry [ Anterior Bilateral Throughout] General appearance: Present: no acute distress - EENT ENT: hearing intact - Neck Neck: supple, other (LIJ TLC in place) - Respiratory Respiratory effort: normal (unlabored at rest on supplemental oxygen) Extremities: no ischemia, normal temperature - Musculoskeletal Musculoskeletal: right sided weakness (does not move her right upper ext, moves right leg minimally, pt able to move left side of her body.) - Psychiatric Psychiatric: no appropriate mood/affect (flat affect and does not respond verbally to questions), cooperative - Labs CBC & Chem 7: 06/09/17 11:42 06/09/17 11:42 Labs: Abnormal lab results 06/09/17 06/09/17 06/09/17 Range/Units 11:42 11:42 12:04 MCV 76 L (79-97) fl MCH 24 L (28-32) pg RDW 18.3 H (13.2-15.2) % Seg Neuts % (Manual) 80.0 H (40.0-70.0) % Lymphocytes % (Manual) 10.0 L (13.4-35.0) % Nucleated RBC % 2.0 H (0.0-0.9) % Lymphocytes # (Manual) 1.0 L (1.2-5.4) K/mm3 Potassium 5.4 H D (3.6-5.0) mmol/L Chloride 97.1 L (98-107) mmol/L BUN 58 H (7-17) mg/dL Creatinine 6.6 H (0.7-1.2) mg/dL POC Glucose 106 H (70-105) Calcium 7.2 L (8.4-10.2) mg/dL
[2017-06-09] MEDS: APRESOLINE IV PRN (15:05)
--- NOTE | 2017-06-09 15:48 | Consultation ---
History of Present Illness Consult date: 06/09/17 Requesting physician: KELLY JEFFERSON Consult reason: other (acute CVA, r/o cardiac source) History of present illness: The pt is a 66 YO female with a past medical history significant for HTN, ESRD on HD, MELVI, breast CA s/p mastectomy, hyperparathyroidism, morbid obesity. She is previously unknown to our practice. She is lethargic and withdrawn with no family present at bedside on evaluation and thus HPI is obtained per the records. Pt was admitted on 06/04 and successfully underwent scheduled elective subtotal parathyroidectomy per Dr. Singh on 06/04/2017. Pt was extubated post- op, but later developed stridor and respiratory distress and was re-intubated and tx to ICU. Post-operatively, the patient also had poor venous access and a central line was placed into the LIJ. The patient was subsequently extubated and went to the bathroom yesterday morning and developed right-sided hemiparesis. CT scan suggested a left MCA event. Initially, there was concern that pt's LIJ central line may have been placed intra-arterial, however, CT scan confirmed the placement into the Internal Juglar placement and per vascular , LIJ TLC does not appear to be the source of the stroke. Cardiology has been consulted to r/o cardiac source of CVA. Past History Past Medical History: cancer (breast), dialysis, ESRD, hypertension, renal failure, other (hyperparathyroidism; MELVI) Past Surgical History: mastectomy, Other (Parathyroidectomy) Social history: single. denies: smoking, alcohol abuse, prescription drug abuse , IV drug use Family history: hypertension Medications and Allergies Allergies Allergy/AdvReac Type Severity Reaction Status Date / Time No Known Allergies Allergy Verified 06/01/17 16:40 Home Medications Medication Instructions Recorded Confirmed Last Taken Type Aspirin [Adult Low Dose Aspirin EC] 81 mg PO DAILY 06/01/17 06/04/17 06/02/17 History Cinacalcet HCl [Sensipar] 180 mg PO DAILY 06/01/17 06/01/17 06/03/17 History Furosemide [Lasix TAB] 80 mg PO QDAY 06/01/17 06/01/17 Unknown History Losartan [Cozaar] 100 mg PO QDAY 06/01/17 06/01/17 06/04/17 07:00 History Metoprolol [Lopressor TAB] 50 mg PO BID 06/01/17 06/01/17 06/04/17 07:00 History Sevelamer Carbonate [Renvela] 1,600 mg PO TIDWM 06/01/17 06/01/17 06/03/17 History Active Meds: Active Medications Lipase/Protease/Amylase (Joaquin Stallworth 10,500 Unit) 1 each FEEDTUBE PRN PRN PRN Reason: For Clogged Feeding Tube Aspirin (Baby Aspirin) 81 mg PO QDAY [facility] Atorvastatin Calcium (Lipitor) 40 mg PO QHS [facility] Last Admin: 06/09/17 06:07 Dose: Not Given Bisacodyl (Dulcolax) 10 mg OR QDAY PRN PRN Reason: constipation unrelieved by MOM Calcitriol (Rocaltrol) 0.5 mcg PO QDAY [facility] Last Admin: 06/08/17 10:25 Dose: Not Given Calcium Carbonate/Glycine (Tums) 1,000 mg PO TID [facility] Last Admin: 06/09/17 06:06 Dose: Not Given Dexamethasone (Decadron) 4 mg IV BID [facility] Epoetin Riccardo (Procrit) 10,000 unit IV KAYLA PRN PRN Reason: hemodialysis Last Admin: 06/07/17 18:39 Dose: 10,000 unit Famotidine (Pepcid) 20 mg IV DAILY [facility] Last Admin: 06/09/17 12:34 Dose: 20 mg Heparin Sodium (Porcine) (Heparin) 5,000 unit SUB-Q Q12HR [facility] Hydralazine HCl (Apresoline) 5 mg IV Q6HR PRN PRN Reason: SBP>160 Last Admin: 06/09/17 15:05 Dose: 5 mg Hydrophilic Ointment (Vaseline Lip Therapy) 1 applic TP Q2HR PRN PRN Reason: Dry Lips Last Admin: 06/05/17 17:46 Dose: 1 applic Sodium Chloride (Nacl 0.9%) 100 mls @ 999 mls/hr IV KAYLA PRN PRN Reason: Hypotension Morphine Sulfate (Morphine) 2 mg IV Q4H PRN PRN Reason: Pain, Moderate (4-6) Last Admin: 06/07/17 13:14 Dose: 2 mg Multi-Ingred Cream/Lotion/Oil/Oint (Artificial Tears Ophth Oint) 1 applic OU Q4HR PRN PRN Reason: Dry Eye(s) Simple Syrup (Simple Syrup) 15 ml FEEDTUBE PRN PRN PRN Reason: Hypoglycemia Simple Syrup (Simple Syrup) 30 ml FEEDTUBE PRN PRN PRN Reason: Hypoglycemia Sodium Bicarbonate (Sodium Bicarbonate) 325 mg FEEDTUBE PRN PRN PRN Reason: For Clogged Feeding Tube Review of Systems ROS unobtainable: due to mental status Physical Examination Vital Signs Temp Pulse Resp BP Pulse Ox 97.8 F 59 L 18 163/95 95 06/04/17 11:00 06/04/17 11:00 06/04/17 11:00 06/04/17 11:00 06/04/17 11:00 General appearance: no acute distress, other (withdrawn, nonverbal) HEENT: Positive: Mucus Membranes Moist Cardiac: Positive: Reg Rate and Rhythm, S1/S2, Systolic Murmur Lungs: Positive: Decreased Breath Sounds Neuro: Positive: Weakness (right-sided) Abdomen: Positive: Unremarkable. Negative: Tender Skin: Positive: Clear. Negative: Rash, Wound Musculoskeletal: No Fluid Collection, No Pain, Normal Range of Motion Extremities: Absent: edema Results 06/09/17 11:42 06/09/17 11:42 Lipids 06/09/17 Range/Units 11:49 Triglycerides 132 (2-149) mg/dL Cholesterol 171 (50-199) mg/dL HDL Cholesterol 50 (40-59) mg/dL Cholesterol/HDL Ratio 3.42 % CBC 06/09/17 Range/Units 11:42 WBC 9.5 (4.5-11.0) K/mm3 RBC 4.71 (3.65-5.03) M/mm3 Hgb 11.3 (10.1-14.3) gm/dl Hct 35.6 (30.3-42.9) % Plt Count 228 (140-440) K/mm3 Comprehensive Metabolic Panel 06/09/17 Range/Units 11:42 Sodium 139 (137-145) mmol/L Potassium 5.4 H D (3.6-5.0) mmol/L Chloride 97.1 L (98-107) mmol/L Carbon Dioxide 25 (22-30) mmol/L BUN 58 H (7-17) mg/dL Creatinine 6.6 H (0.7-1.2) mg/dL Glucose 96 (65-100) mg/dL Calcium 7.2 L (8.4-10.2) mg/dL - Imaging and Cardiology Echo: pending EKG: pending EKG interpretations - Telemetry EKG Rhythm: Sinus Rhythm Assessment and Plan Assessment: Acute CVA / AMS - head CT showed acute stroke in MCA, no hemorrhage Thrombus in distal L ICA and MCA - per chart, neuro currently recommends against heparin gtt in setting of acute CVA and risk of conversion to hemorrhagic CVA. Hyperparathyroidism, s/p subtotal parathyroidectomy on 06/04/2017 Acute respiratory failure / Laryngeal edema/stridor - improving; decadron per pulmonary; s/p intubation HTN ESRD on HD Hyperkalemia Morbid obesity History of breast cancer status post mastectomy Plan: Await echo. Obtain 12-lead EKG. Cont ASA and statin. BP optimization per primary and/or neurology as permissive HTN will likely be recommended per neuro at this time. Await neuro consultation. The patient has been seen in conjunction with Dr. Quinonez who agrees with the assessment and plan of care.
--- NOTE | 2017-06-09 16:08 | Progress Note ---
Assessment and Plan Assessment and plan: 66-year-old female patient significant past medical history of hypertension and obstructive sleep apnea, ESRD on hemodialysis, breast cancer status post mastectomy underwent elective total parathyroidectomy and was admitted to ICU with respiratory failure requiring intubation Acute left AMA stroke with right-sided weakness - Neurology consult appreciated - We will started on aspirin and statin - Cardiology consulted to rule out cardiac cause of stroke - Echo Doppler negative Acute hypoxic respiratory failure - Status post extubation yesterday, on BiPAP Status post subtotal parathyroidectomy - Continue postop care per surgery End-stage renal disease on hemodialysis - Continue hemodialysis as scheduled per nephrology Hyperkalemia - Due to CKD - Continue hemodialysis Hypertension - Continue When necessary medication History of breast cancer status post mastectomy - Stable Morbid obesity with BMI of 47.8, - Patient presented bariatric surgery after her acute condition is stabilized The high probability of a clinically significant, sudden or life threatening deterioration of the [respiratory] system(s) required my full and direct attention, intervention and personal management. The aggregate critical care time was [32] minutes. This time is in addition to time spent performing reported procedures but includes the following: [x] Data Review and interpretation [x] Patient assessment and monitoring of vital signs [x] Documentation [x] Medication orders and managementPatient would benefit by outpatient bariatric surgical evaluation for weight reduction program and medically stable CODE STATUS FULL History Interval history: Patient was seen and evaluated this morning, patient was sleepy, status post extubation and on BIPAP. Hospitalist Physical - Physical exam Narrative exam: Status post extubation, patient is on BiPAP. The patient appeared well nourished and normally developed. Vital signs as documented. Clean surgical dressing on the neck Head exam is unremarkable. No scleral icterus . Neck is without jugular venous distension, thyromegaly, or carotid bruits. Lungs are clear to auscultation. Cardiac exam reveals regular rate and Rhythm. First and second heart sounds normal. No murmurs, rubs or gallops. Abdominal exam reveals normal bowel sounds, no masses, no organomegaly and no aortic enlargement. Extremities are nonedematous and both femoral and pedal pulses are normal. CLINICAL NURSING ASSISTANT: Sleepy. - Constitutional Vitals: Temp Pulse Resp BP Pulse Ox 98.0 F 65 15 157/72 100 06/09/17 13:30 06/09/17 16:00 06/09/17 14:00 06/09/17 16:00 06/09/17 14:00 General appearance: Present: no acute distress Results - Labs CBC & Chem 7: 06/09/17 11:42 06/09/17 11:42 Labs: Laboratory Last Values WBC 9.5 K/mm3 (4.5-11.0) 06/09/17 11:42 RBC 4.71 M/mm3 (3.65-5.03) 06/09/17 11:42 Hgb 11.3 gm/dl (10.1-14.3) 06/09/17 11:42 POC Hgb 14.3 (12-17) 06/04/17 16:22 Hct 35.6 % (30.3-42.9) 06/09/17 11:42 POC Hct 42 (38-51) 06/04/17 16:22 MCV 76 fl (79-97) L 06/09/17 11:42 MCH 24 pg (28-32) L 06/09/17 11:42 MCHC 32 % (30-34) 06/09/17 11:42 RDW 18.3 % (13.2-15.2) H 06/09/17 11:42 Plt Count 228 K/mm3 (140-440) 06/09/17 11:42 Add Manual Diff Complete 06/09/17 11:42 Total Counted 100 06/09/17 11:42 Seg Neutrophils % Student Services Counselor 06/04/17 00:01 Seg Neuts % (Manual) 80.0 % (40.0-70.0) H 06/09/17 11:42 Band Neutrophils % 4.0 % 06/09/17 11:42 Lymphocytes % (Manual) 10.0 % (13.4-35.0) L 06/09/17 11:42 Reactive Lymphs % (Man) 0 % 06/09/17 11:42 Monocytes % (Manual) 6.0 % (0.0-7.3) 06/09/17 11:42 Eosinophils % (Manual) 0 % (0.0-4.3) 06/09/17 11:42 Basophils % (Manual) 0 % (0.0-1.8) 06/09/17 11:42 Metamyelocytes % 0 % 06/09/17 11:42 Myelocytes % 0 % 06/09/17 11:42 Promyelocytes % 0 % 06/09/17 11:42 Blast Cells % 0 % 06/09/17 11:42 Nucleated RBC % 2.0 % (0.0-0.9) H 06/09/17 11:42 Seg Neutrophils # Man 7.6 K/mm3 (1.8-7.7) 06/09/17 11:42 Band Neutrophils # 0.4 K/mm3 06/09/17 11:42 Lymphocytes # (Manual) 1.0 K/mm3 (1.2-5.4) L 06/09/17 11:42 Abs React Lymphs (Man) 0.0 K/mm3 06/09/17 11:42 Monocytes # (Manual) 0.6 K/mm3 (0.0-0.8) 06/09/17 11:42 Eosinophils # (Manual) 0.0 K/mm3 (0.0-0.4) 06/09/17 11:42 Basophils # (Manual) 0.0 K/mm3 (0.0-0.1) 06/09/17 11:42 Metamyelocytes # 0.0 K/mm3 06/09/17 11:42 Myelocytes # 0.0 K/mm3 06/09/17 11:42 Promyelocytes # 0.0 K/mm3 06/09/17 11:42 Blast Cells # 0.0 K/mm3 06/09/17 11:42 WBC Morphology Not Reportable 06/09/17 11:42 Hypersegmented Neuts Not Reportable 06/09/17 11:42 Hyposegmented Neuts Not Reportable 06/09/17 11:42 Hypogranular Neuts Not Reportable 06/09/17 11:42 Smudge Cells Not Reportable 06/09/17 11:42 Toxic Granulation Not Reportable 06/09/17 11:42 Toxic Vacuolation Not Reportable 06/09/17 11:42 Dohle Bodies Not Reportable 06/09/17 11:42 Pelger-Huet Anomaly Not Reportable 06/09/17 11:42 Sunita Rods Not Reportable 06/09/17 11:42 Platelet Estimate Not Reportable 06/09/17 11:42 Clumped Platelets Not Reportable 06/09/17 11:42 Plt Clumps, EDTA Not Reportable 06/09/17 11:42 Large Platelets Not Reportable 06/09/17 11:42 Giant Platelets Not Reportable 06/09/17 11:42 Platelet Satelliting Not Reportable 06/09/17 11:42 Plt Morphology Comment Not Reportable 06/09/17 11:42 RBC Morphology Not Reportable 06/09/17 11:42 Dimorphic RBCs Not Reportable 06/09/17 11:42 Polychromasia 1+ 06/09/17 11:42 Hypochromasia 1+ 06/09/17 11:42 Poikilocytosis Not Reportable 06/09/17 11:42 Anisocytosis Not Reportable 06/09/17 11:42 Microcytosis Not Reportable 06/09/17 11:42 Macrocytosis Not Reportable 06/09/17 11:42 Spherocytes Not Reportable 06/09/17 11:42 Pappenheimer Bodies Not Reportable 06/09/17 11:42 Sickle Cells Not Reportable 06/09/17 11:42 Target Cells Few 06/09/17 11:42 Tear Drop Cells Not Reportable 06/09/17 11:42 Ovalocytes Not Reportable 06/09/17 11:42 Helmet Cells Not Reportable 06/09/17 11:42 [place] Bodies Not Reportable 06/09/17 11:42 [place] Rings Not Reportable 06/09/17 11:42 [place] Cells Not Reportable 06/09/17 11:42 Bite Cells Not Reportable 06/09/17 11:42 Crenated Cell Not Reportable 06/09/17 11:42 Elliptocytes Not Reportable 06/09/17 11:42 Acanthocytes (Spur) Not Reportable 06/09/17 11:42 Rouleaux Not Reportable 06/09/17 11:42 Hemoglobin C Crystals Not Reportable 06/09/17 11:42 Schistocytes Not Reportable 06/09/17 11:42 Malaria parasites Not Reportable 06/09/17 11:42 [place] Bodies Not Reportable 06/09/17 11:42 Hem Pathologist Commnt No 06/09/17 11:42 POC ABG pH 7.372 (7.35-7.45) 06/08/17 14:22 POC ABG pCO2 52.8 (35-45) H 06/08/17 14:22 POC ABG pO2 77 (80-105) L 06/08/17 14:22 POC ABG HCO3 30.7 06/08/17 14:22 POC ABG Total CO2 32 06/08/17 14:22 POC ABG O2 Sat 95 06/08/17 14:22 POC ABG Base Excess 5 06/08/17 14:22 POC Sodium 137 mmol/L (138-146) L 06/04/17 16:22 POC Potassium 5.3 (3.5-4.9) H 06/04/17 16:22 POC Chloride 102 (98-109) 06/04/17 16:22 FiO2 40 % 06/08/17 14:22 Sodium 139 mmol/L (137-145) 06/09/17 11:42 Potassium 5.4 mmol/L (3.6-5.0) H D 06/09/17 11:42 Chloride 97.1 mmol/L (98-107) L 06/09/17 11:42 Carbon Dioxide 25 mmol/L (22-30) 06/09/17 11:42 Anion Gap 22 mmol/L 06/09/17 11:42 POC BUN 45 mg/dl (8-26) H 06/04/17 16:22 BUN 58 mg/dL (7-17) H 06/09/17 11:42 Creatinine 6.6 mg/dL (0.7-1.2) H 06/09/17 11:42 Estimated GFR 8 ml/min 06/09/17 11:42 BUN/Creatinine Ratio 9 % 06/09/17 11:42 Glucose 96 mg/dL (65-100) 06/09/17 11:42 POC Glucose 106 (70-105) H 06/09/17 12:04 Calcium 7.2 mg/dL (8.4-10.2) L 06/09/17 11:42 Phosphorus 4.50 mg/dL (2.5-4.5) 06/06/17 07:13 Magnesium 1.90 mg/dL (1.7-2.3) 06/06/17 07:13 Total Bilirubin 0.20 mg/dL (0.1-1.2) 06/06/17 07:13 AST 14 units/L (5-40) 06/06/17 07:13 ALT 15 units/L (7-56) 06/06/17 07:13 Alkaline Phosphatase 79 units/L (35-129) 06/06/17 07:13 Total Protein 5.7 g/dL (6.3-8.2) L 06/06/17 07:13 Albumin 3.3 g/dL (3.9-5) L 06/06/17 07:13 Albumin/Globulin Ratio 1.4 % 06/06/17 07:13 Triglycerides 132 mg/dL (2-149) 06/09/17 11:49 Cholesterol 171 mg/dL (50-199) 06/09/17 11:49 LDL Cholesterol Direct 95 mg/dL (50-130) 06/09/17 11:49 HDL Cholesterol 50 mg/dL (40-59) 06/09/17 11:49 Cholesterol/HDL Ratio 3.42 % 06/09/17 11:49 PTH Pre-Incision 641.9 (11.1-79.5) H 06/04/17 13:55 PTH Post-Excision 154.7 (11.1-79.5) H 06/04/17 13:55 PTH Intact Intraop 5 m Not Reportable 06/04/17 13:55
[2017-06-09 17:20] LABS: Hematocrit 40.2 % (30.3-42.9); Hemoglobin 12.5 gm/dl (10.1-14.3)
[2017-06-09 17:35] LABS: INR 0.98 (0.87-1.13)
[2017-06-09 17:36] LABS: Partial Thromboplastin Time 29.9 Sec. (24.2-36.6)
--- NOTE | 2017-06-09 18:15 | Progress Note ---
Assessment and Plan s/p PTH with CVA. Will sign off as there is nothing surgical to offer. D/w family. Subjective Date of service: 06/09/17 Patient Reports: Positive: no new complaints Objective Vital Signs - 12hr 06/09/17 06/09/17 06/09/17 06:30 07:00 07:30 Temperature Pulse Rate 64 63 63 Pulse Rate [ From Monitor] Respiratory 16 15 16 Rate Blood Pressure 159/81 161/69 168/72 O2 Sat by Pulse 100 99 99 Oximetry O2 Sat by Pulse Oximetry [ Anterior Bilateral Throughout] 06/09/17 06/09/17 06/09/17 08:00 08:30 09:00 Temperature 97.3 F L Pulse Rate 63 62 65 Pulse Rate [ 65 From Monitor] Respiratory 15 15 15 Rate Blood Pressure 158/75 157/74 162/77 O2 Sat by Pulse 100 99 96 Oximetry O2 Sat by Pulse Oximetry [ Anterior Bilateral Throughout] 06/09/17 06/09/17 06/09/17 09:30 10:00 10:30 Temperature Pulse Rate 66 61 63 Pulse Rate [ From Monitor] Respiratory 16 15 16 Rate Blood Pressure 157/73 161/71 161/75 O2 Sat by Pulse 98 99 99 Oximetry O2 Sat by Pulse Oximetry [ Anterior Bilateral Throughout] 06/09/17 06/09/17 06/09/17 11:00 11:30 11:41 Temperature Pulse Rate 67 63 Pulse Rate [ From Monitor] Respiratory 14 13 Rate Blood Pressure 156/72 162/68 O2 Sat by Pulse 99 98 95 Oximetry O2 Sat by Pulse Oximetry [ Anterior Bilateral Throughout] 06/09/17 06/09/17 06/09/17 12:00 12:30 13:00 Temperature 98.1 F Pulse Rate 61 62 69 Pulse Rate [ From Monitor] Respiratory 16 15 18 Rate Blood Pressure 163/72 165/69 172/73 O2 Sat by Pulse 98 98 100 Oximetry O2 Sat by Pulse Oximetry [ Anterior Bilateral Throughout] 06/09/17 06/09/17 06/09/17 13:30 13:45 14:00 Temperature 98.0 F Pulse Rate 61 61 60 Pulse Rate [ From Monitor] Respiratory 16 15 Rate Blood Pressure 164/56 164/56 178/81 O2 Sat by Pulse 100 100 Oximetry O2 Sat by Pulse 99 Oximetry [ Anterior Bilateral Throughout] 06/09/17 06/09/17 06/09/17 14:15 14:30 14:31 Temperature Pulse Rate 59 L 56 L 58 L Pulse Rate [ From Monitor] Respiratory 12 Rate Blood Pressure 160/76 186/74 186/74 O2 Sat by Pulse 99 Oximetry O2 Sat by Pulse Oximetry [ Anterior Bilateral Throughout] 06/09/17 06/09/17 06/09/17 14:45 15:00 15:01 Temperature Pulse Rate 67 57 L 58 L Pulse Rate [ From Monitor] Respiratory 15 Rate Blood Pressure 184/82 194/79 194/79 O2 Sat by Pulse 99 Oximetry O2 Sat by Pulse Oximetry [ Anterior Bilateral Throughout] 06/09/17 06/09/17 06/09/17 15:05 15:14 15:30 Temperature Pulse Rate 55 L 61 65 Pulse Rate [ From Monitor] Respiratory Rate Blood Pressure 194/79 173/70 164/67 O2 Sat by Pulse Oximetry O2 Sat by Pulse Oximetry [ Anterior Bilateral Throughout] 06/09/17 06/09/17 06/09/17 15:31 15:45 16:00 Temperature Pulse Rate 64 67 65 Pulse Rate [ From Monitor] Respiratory 16 Rate Blood Pressure 164/67 154/69 157/72 O2 Sat by Pulse 100 Oximetry O2 Sat by Pulse Oximetry [ Anterior Bilateral Throughout] 06/09/17 06/09/17 06/09/17 16:01 16:16 16:30 Temperature Pulse Rate 63 65 64 Pulse Rate [ From Monitor] Respiratory 16 Rate Blood Pressure 157/72 155/72 148/65 O2 Sat by Pulse 99 Oximetry O2 Sat by Pulse Oximetry [ Anterior Bilateral Throughout] 06/09/17 06/09/17 06/09/17 16:46 17:03 17:15 Temperature Pulse Rate 61 62 61 Pulse Rate [ From Monitor] Respiratory Rate Blood Pressure 151/71 132/72 155/68 O2 Sat by Pulse Oximetry O2 Sat by Pulse Oximetry [ Anterior Bilateral Throughout] 06/09/17 17:48 Temperature 98.2 F Pulse Rate 68 Pulse Rate [ From Monitor] Respiratory 17 Rate Blood Pressure 153/66 O2 Sat by Pulse Oximetry O2 Sat by Pulse 99 Oximetry [ Anterior Bilateral Throughout] - General physical appearance Narrative Exam: Pt unchanged from yesterday with R. sided weakness and aphasic speech. Incision clean. - Labs 06/09/17 16:55 06/09/17 11:42 Diabetes panel 06/09/17 06/09/17 Range/Units 11:42 11:49 Sodium 139 (137-145) mmol/L Potassium 5.4 H D (3.6-5.0) mmol/L Chloride 97.1 L (98-107) mmol/L Carbon Dioxide 25 (22-30) mmol/L BUN 58 H (7-17) mg/dL Creatinine 6.6 H (0.7-1.2) mg/dL Glucose 96 (65-100) mg/dL Calcium 7.2 L (8.4-10.2) mg/dL Triglycerides 132 (2-149) mg/dL HDL Cholesterol 50 (40-59) mg/dL Calcium panel 06/09/17 Range/Units 11:42 Calcium 7.2 L (8.4-10.2) mg/dL Pituitary panel 06/09/17 Range/Units 11:42 Sodium 139 (137-145) mmol/L Potassium 5.4 H D (3.6-5.0) mmol/L Chloride 97.1 L (98-107) mmol/L Carbon Dioxide 25 (22-30) mmol/L BUN 58 H (7-17) mg/dL Creatinine 6.6 H (0.7-1.2) mg/dL Glucose 96 (65-100) mg/dL Calcium 7.2 L (8.4-10.2) mg/dL Adrenal panel 06/09/17 Range/Units 11:42 Sodium 139 (137-145) mmol/L Potassium 5.4 H D (3.6-5.0) mmol/L Chloride 97.1 L (98-107) mmol/L Carbon Dioxide 25 (22-30) mmol/L BUN 58 H (7-17) mg/dL Creatinine 6.6 H (0.7-1.2) mg/dL Glucose 96 (65-100) mg/dL Calcium 7.2 L (8.4-10.2) mg/dL
[2017-06-09] MEDS: BABY ASPIRIN PO SCH ×2 (20:41→20:43)
[2017-06-10 04:07] LABS: Hematocrit 37.8 % (30.3-42.9); Hemoglobin 11.8 gm/dl (10.1-14.3); Mean Corpuscular HGB Conc 31 % (30-34); Mean Corpuscular Volume 77 fl (79-97); Platelet Count 259 K/mm3 (140-440); Red Blood Count 4.93 M/mm3 (3.65-5.03); Red Cell Distribution Width 17.9 % (13.2-15.2); White Blood Count 13.7 K/mm3 (4.5-11.0)
[2017-06-10 04:11] LABS: Mean Corpuscular Hemoglobin 24 pg (28-32)
[2017-06-10 04:27] LABS: Chloride 94.2 mmol/L (98-107); Potassium 4.6 mmol/L (3.6-5.0)
[2017-06-10 06:27] LABS: Basophils % (Manual) 0 % (0.0-1.8); Blastocytes % (Manual) 0 %; Eosinophils % (Manual) 0 % (0.0-4.3)
[2017-06-10 06:29] LABS: Hypochromasia 1+; Polychromasia 1+; Target Cells Few
[2017-06-10 06:30] LABS: Diff Status Complete
--- NOTE | 2017-06-10 07:15 | XRay Report ---
Single view chest: Compared to 06/09/17. History: Followup of respiratory failure. Findings: Cardiomegaly with emphysema. No acute consolidation. Suspicion of infiltrates left perihilar area. Impression: Suspicion of infiltrates left perihilar area
--- NOTE | 2017-06-10 07:28 | XRay Report ---
Single view abdomen: History: Dobbhoff placement. Findings: Tip of Dobbhoff feeding tube is noted in the stomach. Impression: Tip of a feeding tube is noted in the stomach.
--- NOTE | 2017-06-10 08:33 | Progress Note ---
Assessment and Plan Impression: * ESRD * hypertension * s/p parathyroidectomy * Anemia in esrd * respiratory failure * Acute CVA Plan: * hd q mwf * added tums and calcitriol * iv calcium prn * neurology and vascular notes reviewed * cva workup in progress * uf as tolerated with hd * high calcium bath with hd * epogen with hd * strict i/os * follow up am darryl Subjective Date of service: 06/10/17 Principal diagnosis: Inadequate ventilation Interval history: no new complaints Objective - Exam Narrative Exam: General appearance: Present: severe distress, obese - EENT Eyes: Present: PERRL ENT: hearing intact, clear oral mucosa - Neck Neck: Present: supple, normal ROM - Respiratory Respiratory effort: labored Respiratory: bilateral: diminished - Cardiovascular Heart Sounds: Present: S1 & S2. Absent: rub, click - Extremities Extremities: pulses symmetrical, No edema Extremity abnormal: edema Peripheral Pulses: within normal limits - Abdominal Female genitourinary: Present: normal - Integumentary Integumentary: Present: clear, warm, dry - Musculoskeletal Musculoskeletal: generalized weakness - Psychiatric Psychiatric: no intact judgment & insight, no memory intact, agitated - Neurologic Neurologic: CNII-XII intact, moves all extremities - Vital Signs Vital signs: Vital Signs - 12hr 06/09/17 06/09/17 06/09/17 21:01 21:23 21:30 Temperature Pulse Rate 67 72 Pulse Rate [ From Monitor] Respiratory 16 15 Rate Blood Pressure 142/62 148/73 O2 Sat by Pulse 100 97 100 Oximetry 06/09/17 06/09/17 06/09/17 22:00 22:30 23:00 Temperature Pulse Rate 73 65 68 Pulse Rate [ From Monitor] Respiratory 19 16 17 Rate Blood Pressure 144/63 148/65 158/74 O2 Sat by Pulse 100 100 100 Oximetry 06/09/17 06/09/17 06/10/17 23:17 23:30 00:00 Temperature 98.3 F Pulse Rate 63 66 72 Pulse Rate [ 72 From Monitor] Respiratory 16 17 18 Rate Blood Pressure 152/65 156/78 142/67 O2 Sat by Pulse 100 100 100 Oximetry 06/10/17 06/10/17 06/10/17 00:30 01:00 01:30 Temperature Pulse Rate 68 179 H 63 Pulse Rate [ From Monitor] Respiratory 21 12 17 Rate Blood Pressure 159/68 143/80 159/71 O2 Sat by Pulse 100 97 98 Oximetry 06/10/17 06/10/17 06/10/17 02:00 02:31 03:01 Temperature Pulse Rate 64 62 65 Pulse Rate [ From Monitor] Respiratory 16 17 17 Rate Blood Pressure 146/67 146/67 146/67 O2 Sat by Pulse 98 100 100 Oximetry 06/10/17 06/10/17 06/10/17 03:30 04:00 04:30 Temperature 98.3 F Pulse Rate 67 67 67 Pulse Rate [ 67 From Monitor] Respiratory 13 14 14 Rate Blood Pressure 157/83 158/86 141/81 O2 Sat by Pulse 100 100 99 Oximetry 06/10/17 06/10/17 06/10/17 05:00 05:30 06:00 Temperature Pulse Rate 68 67 71 Pulse Rate [ From Monitor] Respiratory 15 12 11 L Rate Blood Pressure 144/80 139/80 158/80 O2 Sat by Pulse 99 100 100 Oximetry 06/10/17 06/10/17 06/10/17 06:30 07:00 07:25 Temperature Pulse Rate 77 65 Pulse Rate [ From Monitor] Respiratory 14 14 Rate Blood Pressure 160/90 138/81 O2 Sat by Pulse 99 98 100 Oximetry 06/10/17 06/10/17 07:30 08:00 Temperature Pulse Rate 60 65 Pulse Rate [ From Monitor] Respiratory 15 16 Rate Blood Pressure 155/81 139/85 O2 Sat by Pulse 98 99 Oximetry - Lab 06/10/17 03:29 06/10/17 03:29 Most recent lab results Calcium 8.0 mg/dL (8.4-10.2) L 06/10/17 03:29 Phosphorus 4.50 mg/dL (2.5-4.5) 06/06/17 07:13 Magnesium 1.90 mg/dL (1.7-2.3) 06/06/17 07:13
--- NOTE | 2017-06-10 09:29 | Progress Note ---
Assessment and Plan Assessment: Acute CVA / AMS - head CT showed acute stroke in MCA, no hemorrhage Thrombus in distal L ICA and MCA - per chart, neuro currently recommends against heparin gtt in setting of acute CVA and risk of conversion to hemorrhagic CVA. Hyperparathyroidism, s/p subtotal parathyroidectomy on 06/04/2017 Acute respiratory failure / Laryngeal edema/stridor - improving; decadron per pulmonary; s/p intubation HTN ESRD on HD Hyperkalemia Morbid obesity History of breast cancer status post mastectomy Plan: Await echo. Cont ASA and statin. Neuro consultation noted. The patient has been seen in conjunction with Dr. Quinonez who agrees with the assessment and plan of care. Subjective Date of service: 06/10/17 Principal diagnosis: Inadequate ventilation Interval history: Pt resting in bed, remains withdrawn and nonverbal. On O2 via venti mask. Family at bedside. States pt was agitated overnight and pulled out feeding tube. Objective Last Vital Signs Temp 98.1 F 06/10/17 08:00 Pulse 65 06/10/17 08:00 Resp 16 06/10/17 08:00 BP 139/85 06/10/17 08:00 Pulse Ox 99 06/10/17 08:00 - Physical Examination General: Other (withdrawn, nonverbal) HEENT: Positive: PERRL, Mucus Membranes Moist Neck: Positive: neck supple, trachea midline Cardiac: Positive: Reg Rate and Rhythm, S1/S2 Lungs: Positive: Decreased Breath Sounds Neuro: Positive: Weakness (right-sided) Abdomen: Positive: Unremarkable. Negative: Tender Skin: Positive: Clear. Negative: Rash, Wound Musculoskeletal: No Fluid Collection, No Pain, Normal Range of Motion Extremities: Absent: edema - Labs and Meds Coagulation 06/09/17 Range/Units 16:55 PT 13.5 (12.2-14.9) Sec. INR 0.98 (0.87-1.13) APTT 29.9 (24.2-36.6) Sec. Lipids 06/09/17 Range/Units 11:49 Triglycerides 132 (2-149) mg/dL Cholesterol 171 (50-199) mg/dL HDL Cholesterol 50 (40-59) mg/dL Cholesterol/HDL Ratio 3.42 % CBC 06/09/17 06/09/17 06/10/17 Range/Units 11:42 16:55 03:29 WBC 9.5 13.7 H (4.5-11.0) K/mm3 RBC 4.71 4.93 (3.65-5.03) M/mm3 Hgb 11.3 12.5 11.8 (10.1-14.3) gm/dl Hct 35.6 40.2 37.8 (30.3-42.9) % Plt Count 228 283 259 (140-440) K/mm3 Comprehensive Metabolic Panel 06/09/17 06/10/17 Range/Units 11:42 03:29 Sodium 139 137 (137-145) mmol/L Potassium 5.4 H D 4.6 (3.6-5.0) mmol/L Chloride 97.1 L 94.2 L (98-107) mmol/L Carbon Dioxide 25 25 (22-30) mmol/L BUN 58 H 32 H (7-17) mg/dL Creatinine 6.6 H 4.6 H (0.7-1.2) mg/dL Glucose 96 106 H (65-100) mg/dL Calcium 7.2 L 8.0 L (8.4-10.2) mg/dL - Imaging and Cardiology EKG: image reviewed Echo: pending - Telemetry EKG Rhythm: Sinus Rhythm - EKG Sinus rhythms and dysrhythmias: sinus rhythm
[2017-06-10] MEDS: PEPCID PO SCH (10:24)
[2017-06-10] MEDS: BABY ASPIRIN PO SCH (10:24)
[2017-06-10] MEDS: DECADRON IV SCH (10:24)
[2017-06-10] MEDS: HEPARIN SUB-Q SCH ×2 (10:25→21:32)
[2017-06-10] MEDS: ROCALTROL PO SCH (10:26)
[2017-06-10] MEDS: TUMS PO SCH ×3 (10:26→21:32)
--- NOTE | 2017-06-10 16:10 | Progress Note ---
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 - Neurology consult appreciated - on aspirin and statin - Cardiology consulted to rule out cardiac cause of stroke - CTA was done - Vascular surgery consulted no intervention needed - NO heparin GTT for the thrombus because of hemorrhagic transformatiob Acute hypoxic respiratory failure - Status post extubation, on BiPAP Status post subtotal parathyroidectomy - Continue postop care per surgery End-stage renal disease on hemodialysis - Continue hemodialysis as scheduled per nephrology Hyperkalemia - Due to CKD - Continue hemodialysis Hypertension - Continue When necessary medication History of breast cancer status post mastectomy - Stable Morbid obesity with BMI of 47.8, - Patient presented bariatric surgery after her acute condition is stabilized The high probability of a clinically significant, sudden or life threatening deterioration of the [respiratory] system(s) required my full and direct attention, intervention and personal management. The aggregate critical care time was [32] minutes. This time is in addition to time spent performing reported procedures but includes the following: [x] Data Review and interpretation [x] Patient assessment and monitoring of vital signs [x] Documentation [x] Medication orders and managementPatient would benefit by outpatient bariatric surgical evaluation for weight reduction program and medically stable CODE STATUS FULL History Interval history: Patient was seen and evaluated this morning, patient was sleepy, status post extubation and on BIPAP. I have discussed the management plan with her daughter and son. Hospitalist Physical - Physical exam Narrative exam: Status post extubation, patient is on BiPAP. The patient appeared well nourished and normally developed. Vital signs as documented. Clean surgical dressing on the neck Head exam is unremarkable. No scleral icterus . Neck is without jugular venous distension, thyromegaly, or carotid bruits. Lungs are clear to auscultation. Cardiac exam reveals regular rate and Rhythm. First and second heart sounds normal. No murmurs, rubs or gallops. Abdominal exam reveals normal bowel sounds, no masses, no organomegaly and no aortic enlargement. Extremities are nonedematous and both femoral and pedal pulses are normal. PLASTIC FINISHER: Sleepy. Right-sided weakness. - Constitutional Vitals: Temp Pulse Resp BP Pulse Ox 97.2 F L 65 16 139/85 99 06/10/17 12:00 06/10/17 08:00 06/10/17 08:00 06/10/17 08:00 06/10/17 08:00 General appearance: Present: no acute distress, other (withdrawn, nonverbal) Results - Labs CBC & Chem 7: 06/10/17 03:29 10 03:29 Labs: Laboratory Last Values WBC 13.7 K/mm3 (4.5-11.0) H 06/10/17 03:29 RBC 4.93 M/mm3 (3.65-5.03) 06/10/17 03:29 Hgb 11.8 gm/dl (10.1-14.3) 06/10/17 03:29 POC Hgb 14.3 (12-17) 06/04/17 16:22 Hct 37.8 % (30.3-42.9) 06/10/17 03:29 POC Hct 42 (38-51) 06/04/17 16:22 MCV 77 fl (79-97) L 06/10/17 03:29 MCH 24 pg (28-32) L 06/10/17 03:29 MCHC 31 % (30-34) 06/10/17 03:29 RDW 17.9 % (13.2-15.2) H 06/10/17 03:29 Plt Count 259 K/mm3 (140-440) 06/10/17 03:29 Add Manual Diff Complete 06/10/17 03:29 Total Counted 100 06/10/17 03:29 Seg Neutrophils % Fish Drier 06/04/17 00:01 Seg Neuts % (Manual) 82.0 % (40.0-70.0) H 06/10/17 03:29 Band Neutrophils % 9.0 % 06/10/17 03:29 Lymphocytes % (Manual) 7.0 % (13.4-35.0) L 06/10/17 03:29 Reactive Lymphs % (Man) 0 % 06/10/17 03:29 Monocytes % (Manual) 2.0 % (0.0-7.3) 06/10/17 03:29 Eosinophils % (Manual) 0 % (0.0-4.3) 06/10/17 03:29 Basophils % (Manual) 0 % (0.0-1.8) 06/10/17 03:29 Metamyelocytes % 0 % 06/10/17 03:29 Myelocytes % 0 % 06/10/17 03:29 Promyelocytes % 0 % 06/10/17 03:29 Blast Cells % 0 % 06/10/17 03:29 Nucleated RBC % 6.0 % (0.0-0.9) H 06/10/17 03:29 Seg Neutrophils # Man 11.2 K/mm3 (1.8-7.7) H 06/10/17 03:29 Band Neutrophils # 1.2 K/mm3 06/10/17 03:29 Lymphocytes # (Manual) 1.0 K/mm3 (1.2-5.4) L 06/10/17 03:29 Abs React Lymphs (Man) 0.0 K/mm3 06/10/17 03:29 Monocytes # (Manual) 0.3 K/mm3 (0.0-0.8) 06/10/17 03:29 Eosinophils # (Manual) 0.0 K/mm3 (0.0-0.4) 06/10/17 03:29 Basophils # (Manual) 0.0 K/mm3 (0.0-0.1) 06/10/17 03:29 Metamyelocytes # 0.0 K/mm3 06/10/17 03:29 Myelocytes # 0.0 K/mm3 06/10/17 03:29 Promyelocytes # 0.0 K/mm3 06/10/17 03:29 Blast Cells # 0.0 K/mm3 06/10/17 03:29 WBC Morphology Not Reportable 06/10/17 03:29 Hypersegmented Neuts Not Reportable 06/10/17 03:29 Hyposegmented Neuts Not Reportable 06/10/17 03:29 Hypogranular Neuts Not Reportable 06/10/17 03:29 Smudge Cells Not Reportable 06/10/17 03:29 Toxic Granulation Not Reportable 06/10/17 03:29 Toxic Vacuolation Not Reportable 06/10/17 03:29 Dohle Bodies Not Reportable 06/10/17 03:29 Pelger-Huet Anomaly Not Reportable 06/10/17 03:29 Sunita Rods Not Reportable 06/10/17 03:29 Platelet Estimate Appears normal 06/10/17 03:29 Clumped Platelets Not Reportable 06/10/17 03:29 Plt Clumps, EDTA Not Reportable 06/10/17 03:29 Large Platelets Not Reportable 06/10/17 03:29 Giant Platelets Not Reportable 06/10/17 03:29 Platelet Satelliting Not Reportable 06/10/17 03:29 Plt Morphology Comment Not Reportable 06/10/17 03:29 RBC Morphology Not Reportable 06/10/17 03:29 Dimorphic RBCs Not Reportable 06/10/17 03:29 Polychromasia 1+ 06/10/17 03:29 Hypochromasia 1+ 06/10/17 03:29 Poikilocytosis Not Reportable 06/10/17 03:29 Anisocytosis Not Reportable 06/10/17 03:29 Microcytosis Not Reportable 06/10/17 03:29 Macrocytosis Not Reportable 06/10/17 03:29 Spherocytes Not Reportable 06/10/17 03:29 Pappenheimer Bodies Not Reportable 06/10/17 03:29 Sickle Cells Not Reportable 06/10/17 03:29 Target Cells Few 06/10/17 03:29 Tear Drop Cells Not Reportable 06/10/17 03:29 Ovalocytes Not Reportable 06/10/17 03:29 Helmet Cells Not Reportable 06/10/17 03:29 Ramos-Bruce Bodies Not Reportable 06/10/17 03:29 Greenfield Rings Not Reportable 06/10/17 03:29 Donaldo Cells Not Reportable 06/10/17 03:29 Bite Cells Not Reportable 06/10/17 03:29 Crenated Cell Not Reportable 06/10/17 03:29 Elliptocytes Not Reportable 06/10/17 03:29 Acanthocytes (Spur) Not Reportable 06/10/17 03:29 Rouleaux Not Reportable 06/10/17 03:29 Hemoglobin C Crystals Not Reportable 06/10/17 03:29 Schistocytes Not Reportable 06/10/17 03:29 Malaria parasites Not Reportable 06/10/17 03:29 Williams Bodies Not Reportable 06/10/17 03:29 Hem Pathologist Commnt No 06/10/17 03:29 PT 13.5 Sec. (12.2-14.9) 06/09/17 16:55 INR 0.98 (0.87-1.13) 06/09/17 16:55 APTT 29.9 Sec. (24.2-36.6) 06/09/17 16:55 POC ABG pH 7.372 (7.35-7.45) 06/08/17 14:22 POC ABG pCO2 52.8 (35-45) H 06/08/17 14:22 POC ABG pO2 77 (80-105) L 06/08/17 14:22 POC ABG HCO3 30.7 06/08/17 14:22 POC ABG Total CO2 32 06/08/17 14:22 POC ABG O2 Sat 95 06/08/17 14:22 POC ABG Base Excess 5 06/08/17 14:22 POC Sodium 137 mmol/L (138-146) L 06/04/17 16:22 POC Potassium 5.3 (3.5-4.9) H 06/04/17 16:22 POC Chloride 102 (98-109) 06/04/17 16:22 FiO2 40 % 06/08/17 14:22 Sodium 137 mmol/L (137-145) 06/10/17 03:29 Potassium 4.6 mmol/L (3.6-5.0) 06/10/17 03:29 Chloride 94.2 mmol/L (98-107) L 06/10/17 03:29 Carbon Dioxide 25 mmol/L (22-30) 06/10/17 03:29 Anion Gap 22 mmol/L 06/10/17 03:29 POC BUN 45 mg/dl (8-26) H 06/04/17 16:22 BUN 32 mg/dL (7-17) H 06/10/17 03:29 Creatinine 4.6 mg/dL (0.7-1.2) H 06/10/17 03:29 Estimated GFR 12 ml/min 06/10/17 03:29 BUN/Creatinine Ratio 7 % 06/10/17 03:29 Glucose 106 mg/dL (65-100) H 06/10/17 03:29 POC Glucose 106 (70-105) H 06/10/17 05:27 Calcium 8.0 mg/dL (8.4-10.2) L 06/10/17 03:29 Phosphorus 4.50 mg/dL (2.5-4.5) 06/06/17 07:13 Magnesium 1.90 mg/dL (1.7-2.3) 06/06/17 07:13 Total Bilirubin 0.20 mg/dL (0.1-1.2) 06/06/17 07:13 AST 14 units/L (5-40) 06/06/17 07:13 ALT 15 units/L (7-56) 06/06/17 07:13 Alkaline Phosphatase 79 units/L (35-129) 06/06/17 07:13 Total Protein 5.7 g/dL (6.3-8.2) L 06/06/17 07:13 Albumin 3.3 g/dL (3.9-5) L 06/06/17 07:13 Albumin/Globulin Ratio 1.4 % 06/06/17 07:13 Triglycerides 132 mg/dL (2-149) 06/09/17 11:49 Cholesterol 171 mg/dL (50-199) 06/09/17 11:49 LDL Cholesterol Direct 95 mg/dL (50-130) 06/09/17 11:49 HDL Cholesterol 50 mg/dL (40-59) 06/09/17 11:49 Cholesterol/HDL Ratio 3.42 % 06/09/17 11:49 PTH Pre-Incision 641.9 (11.1-79.5) H 06/04/17 13:55 PTH Post-Excision 154.7 (11.1-79.5) H 06/04/17 13:55 PTH Intact Intraop 5 m Not Reportable 06/04/17 13:55
--- NOTE | 2017-06-10 17:02 | Progress Note ---
Assessment and Plan Imp: 1. Hyperparathyroidism s/p parathyroidectomy 2. Acute respiratory failure, hypoxia/hypercapnea 3. Morbid obesity 4. ESRD 5. Laryngeal edema/stridor 6. Acute CVA, ? embolic given clot noted on CTA neck Rec: 1. No stridor; stop steroids 2. Racemic EPI prn 3. Wean O2 to keep sats 88-94% 4. L IJ CVL position confirmed; would not pull yet as patient with difficult access/multiple issues, and may yet need central access depending on clinical course 5. ASA, statin 6. Echo, carotid dopplers -> f/u results 7. HD per renal 8. + Clot in distal L ICA and MCA; neurology recommends against heparin drip due to risk for hemorrhagic transformation; on SubQ heparin now 9. ST/PT/OT 10. DHT with TFs/free water/oral meds 11. Aspiration precautions, d/w RN 12. Guarded prognosis CCT 31 minutes; updated son and sister at bedside Subjective Date of service: 06/10/17 Principal diagnosis: Inadequate ventilation Interval history: No events. Had HD. Awake, alert, aphasic, R-sided paresis. Hx not obtainable. On a 50% VM currently. Active Medications Lipase/Protease/Amylase (Pancreaze Dr 10,500 Unit) 1 each FEEDTUBE PRN PRN PRN Reason: For Clogged Feeding Tube Aspirin (Baby Aspirin) 81 mg PO QDAY [facility] Last Admin: 06/10/17 10:24 Dose: 81 mg Atorvastatin Calcium (Lipitor) 40 mg PO QHS [facility] Last Admin: 06/09/17 21:15 Dose: 40 mg Bisacodyl (Dulcolax) 10 mg KS QDAY PRN PRN Reason: constipation unrelieved by MOM Calcitriol (Rocaltrol) 0.5 mcg PO QDAY [facility] Last Admin: 06/10/17 10:26 Dose: 0.5 mcg Calcium Carbonate/Glycine (Tums) 1,000 mg PO TID [facility] Last Admin: 06/10/17 14:20 Dose: 1,000 mg Epoetin Riccardo (Procrit) 10,000 unit IV KAYLA PRN PRN Reason: hemodialysis Last Admin: 06/07/17 18:39 Dose: 10,000 unit Famotidine (Pepcid) 20 mg PO DAILY [facility] Last Admin: 10/05/17 10:24 Dose: 20 mg Heparin Sodium (Porcine) (Heparin) 5,000 unit SUB-Q Q12HR JANE Last Admin: 06/10/17 10:25 Dose: 5,000 unit Hydralazine HCl (Apresoline) 5 mg IV Q6HR PRN PRN Reason: SBP>160 Last Admin: 06/09/17 15:05 Dose: 5 mg Hydrophilic Ointment (Vaseline Lip Therapy) 1 applic TP Q2HR PRN PRN Reason: Dry Lips Last Admin: 06/05/17 17:46 Dose: 1 applic Sodium Chloride (Nacl 0.9%) 100 mls @ 999 mls/hr IV KAYLA PRN PRN Reason: Hypotension Morphine Sulfate (Morphine) 2 mg IV Q4H PRN PRN Reason: Pain, Moderate (4-6) Last Admin: 06/07/17 13:14 Dose: 2 mg Multi-Ingred Cream/Lotion/Oil/Oint (Artificial Tears Ophth Oint) 1 applic OU Q4HR PRN PRN Reason: Dry Eye(s) Simple Syrup (Simple Syrup) 15 ml FEEDTUBE PRN PRN PRN Reason: Hypoglycemia Simple Syrup (Simple Syrup) 30 ml FEEDTUBE PRN PRN PRN Reason: Hypoglycemia Sodium Bicarbonate (Sodium Bicarbonate) 325 mg FEEDTUBE PRN PRN PRN Reason: For Clogged Feeding Tube Objective Vital Signs - 12hr 06/10/17 06/10/17 06/10/17 05:00 05:30 06:00 Temperature Pulse Rate 68 67 71 Respiratory 15 12 11 L Rate Blood Pressure 144/80 139/80 158/80 O2 Sat by Pulse 99 100 100 Oximetry 06/10/17 06/10/17 06/10/17 06:30 07:00 07:25 Temperature Pulse Rate 77 65 Respiratory 14 14 Rate Blood Pressure 160/90 138/81 O2 Sat by Pulse 99 98 100 Oximetry 06/10/17 06/10/17 06/10/17 07:30 08:00 12:00 Temperature 98.1 F 97.2 F L Pulse Rate 60 65 Respiratory 15 16 Rate Blood Pressure 155/81 139/85 O2 Sat by Pulse 98 99 Oximetry Constitutional: alert, other (critically ill) Eyes: non-icteric Neck: supple, other (no stridor) Effort: normal Ascultation: Bilateral: other (coarse BS bilaterally) Cardiovascular: regular rate and rhythm (no mrg) Gastrointestinal: normoactive bowel sounds, soft, non-tender, non-distended, other (obese) Integumentary: normal Extremities: no cyanosis, no edema, pink and warm, edema Neurologic: other (altered mentation, R-hemiparesis) Psychiatric: mood appropriate, affect normal CBC and BMP: 06/10/17 03:29 06/10/17 03:29 ABG, PT/INR, D-dimer: ABG POC ABG pH 7.372 (7.35-7.45) 06/08/17 14:22 POC ABG pCO2 52.8 (35-45) H 06/08/17 14:22 POC ABG pO2 77 (80-105) L 06/08/17 14:22 POC ABG HCO3 30.7 06/08/17 14:22 POC ABG Total CO2 32 06/08/17 14:22 POC ABG O2 Sat 95 06/08/17 14:22 PT/INR, D-dimer PT 13.5 Sec. (12.2-14.9) 06/09/17 16:55 INR 0.98 (0.87-1.13) 06/09/17 16:55 Abnormal lab findings: Abnormal Labs 06/04/17 06/04/17 06/04/17 00:01 12:50 13:55 WBC 11.4 H POC Hct MCV 76 L MCH 23 L RDW 18.5 H Seg Neuts % (Manual) 89.0 H Lymphocytes % (Manual) 6.0 L Nucleated RBC % Seg Neutrophils # Man 10.1 H Lymphocytes # (Manual) 0.7 L POC ABG pH POC ABG pCO2 POC ABG pO2 POC Sodium POC Potassium Potassium 5.1 H 5.2 H Chloride POC BUN BUN 48 H Creatinine 6.2 H Glucose POC Glucose Calcium Total Protein Albumin PTH Pre-Incision PTH Post-Excision 06/04/17 06/04/17 06/04/17 13:55 16:10 16:16 WBC POC Hct 37 L MCV MCH RDW Seg Neuts % (Manual) Lymphocytes % (Manual) Nucleated RBC % Seg Neutrophils # Man Lymphocytes # (Manual) POC ABG pH 7.306 L POC ABG pCO2 58.7 H POC ABG pO2 338 H POC Sodium 135 L POC Potassium 5.2 H Potassium Chloride POC BUN 44 H BUN Creatinine Glucose POC Glucose 183 H Calcium Total Protein Albumin PTH Pre-Incision 641.9 H PTH Post-Excision 154.7 H 06/04/17 06/04/17 06/04/17 16:22 20:44 21:29 WBC POC Hct MCV MCH RDW Seg Neuts % (Manual) Lymphocytes % (Manual) Nucleated RBC % Seg Neutrophils # Man Lymphocytes # (Manual) POC ABG pH 7.484 H POC ABG pCO2 POC ABG pO2 POC Sodium 137 L POC Potassium 5.3 H Potassium 5.2 H Chloride POC BUN 45 H BUN 51 H Creatinine 6.5 H Glucose 119 H POC Glucose 176 H Calcium Total Protein Albumin PTH Pre-Incision PTH Post-Excision 06/05/17 06/05/17 06/05/17 03:31 11:44 11:44 WBC 13.4 H POC Hct MCV 75 L MCH 23 L RDW 18.2 H Seg Neuts % (Manual) Lymphocytes % (Manual) Nucleated RBC % Seg Neutrophils # Man Lymphocytes # (Manual) POC ABG pH POC ABG pCO2 POC ABG pO2 75 L POC Sodium POC Potassium Potassium 5.8 H Chloride POC BUN BUN 56 H Creatinine 7.0 H Glucose 111 H POC Glucose Calcium 8.2 L Total Protein 6.2 L Albumin 3.1 L PTH Pre-Incision PTH Post-Excision 06/06/17 06/06/17 06/07/17 05:07 07:13 03:53 WBC POC Hct MCV MCH RDW Seg Neuts % (Manual) Lymphocytes % (Manual) Nucleated RBC % Seg Neutrophils # Man Lymphocytes # (Manual) POC ABG pH POC ABG pCO2 POC ABG pO2 116 H 137 H POC Sodium POC Potassium Potassium Chloride POC BUN BUN 32 H Creatinine 4.9 H Glucose 115 H POC Glucose Calcium 7.9 L Total Protein 5.7 L Albumin 3.3 L PTH Pre-Incision PTH Post-Excision 06/07/17 06/07/17 06/07/17 05:21 05:21 16:54 WBC POC Hct MCV 75 L MCH 24 L RDW 18.7 H Seg Neuts % (Manual) Lymphocytes % (Manual) Nucleated RBC % Seg Neutrophils # Man Lymphocytes # (Manual) POC ABG pH POC ABG pCO2 POC ABG pO2 POC Sodium POC Potassium Potassium 5.4 H Chloride POC BUN BUN 52 H Creatinine 6.2 H Glucose 107 H POC Glucose 110 H Calcium 8.0 L Total Protein Albumin PTH Pre-Incision PTH Post-Excision 06/07/17 06/07/17 06/08/17 17:38 23:32 04:00 WBC POC Hct MCV 77 L MCH 23 L RDW 18.3 H Seg Neuts % (Manual) 78.0 H Lymphocytes % (Manual) Nucleated RBC % 3.0 H Seg Neutrophils # Man 7.8 H Lymphocytes # (Manual) POC ABG pH 7.310 L POC ABG pCO2 51.9 H POC ABG pO2 POC Sodium POC Potassium Potassium Chloride POC BUN BUN Creatinine Glucose POC Glucose 63 L Calcium Total Protein Albumin PTH Pre-Incision PTH Post-Excision 06/08/17 06/08/17 06/08/17 04:00 10:51 11:25 WBC POC Hct MCV MCH RDW Seg Neuts % (Manual) Lymphocytes % (Manual) Nucleated RBC % Seg Neutrophils # Man Lymphocytes # (Manual) POC ABG pH 7.336 L POC ABG pCO2 55.1 H POC ABG pO2 POC Sodium POC Potassium Potassium Chloride 96.9 L POC BUN BUN 29 H Creatinine 4.6 H Glucose POC Glucose 108 H Calcium 8.3 L Total Protein Albumin PTH Pre-Incision PTH Post-Excision 06/08/17 06/09/17 06/09/17 14:22 11:42 11:42 WBC POC Hct MCV 76 L MCH 24 L RDW 18.3 H Seg Neuts % (Manual) 80.0 H Lymphocytes % (Manual) 10.0 L Nucleated RBC % 2.0 H Seg Neutrophils # Man Lymphocytes # (Manual) 1.0 L POC ABG pH POC ABG pCO2 52.8 H POC ABG pO2 77 L POC Sodium POC Potassium Potassium 5.4 H D Chloride 97.1 L POC BUN BUN 58 H Creatinine 6.6 H Glucose POC Glucose Calcium 7.2 L Total Protein Albumin PTH Pre-Incision PTH Post-Excision 06/09/17 06/10/17 06/10/17 12:04 03:29 03:29 WBC 13.7 H POC Hct MCV 77 L MCH 24 L RDW 17.9 H Seg Neuts % (Manual) 82.0 H Lymphocytes % (Manual) 7.0 L Nucleated RBC % 6.0 H Seg Neutrophils # Man 11.2 H Lymphocytes # (Manual) 1.0 L POC ABG pH POC ABG pCO2 POC ABG pO2 POC Sodium POC Potassium Potassium Chloride 94.2 L POC BUN BUN 32 H Creatinine 4.6 H Glucose 106 H POC Glucose 106 H Calcium 8.0 L Total Protein Albumin PTH Pre-Incision PTH Post-Excision 06/10/17 05:27 WBC POC Hct MCV MCH RDW Seg Neuts % (Manual) Lymphocytes % (Manual) Nucleated RBC % Seg Neutrophils # Man Lymphocytes # (Manual) POC ABG pH POC ABG pCO2 POC ABG pO2 POC Sodium POC Potassium Potassium Chloride POC BUN BUN Creatinine Glucose POC Glucose 106 H Calcium Total Protein Albumin PTH Pre-Incision PTH Post-Excision Chest x-ray: report reviewed, image reviewed (L perihilar infiltrate)
[2017-06-11 06:29] LABS: Hemoglobin 11.6 gm/dl (10.1-14.3); Mean Corpuscular HGB Conc 31 % (30-34); Mean Corpuscular Volume 77 fl (79-97); Platelet Count 227 K/mm3 (140-440); Red Blood Count 4.83 M/mm3 (3.65-5.03); Red Cell Distribution Width 18.3 % (13.2-15.2); White Blood Count 11.8 K/mm3 (4.5-11.0)
[2017-06-11 06:37] LABS: Mean Corpuscular Hemoglobin 24 pg (28-32)
[2017-06-11 06:52] LABS: Calcium 6.3 mg/dL (8.4-10.2); Chloride 99.1 mmol/L (98-107); Potassium 3.7 mmol/L (3.6-5.0)
[2017-06-11 06:53] LABS: ISTAT Base Excess 9; ISTAT HCO3 30.9; ISTAT PCO2 34.8 (35-45); ISTAT PH 7.556 (7.35-7.45); ISTAT PO2 125 (80-105); ISTAT SO2 99; ISTAT TCO2 32
[2017-06-11 08:37] LABS: Blastocytes % (Manual) 0 %
[2017-06-11 08:38] LABS: Anisocytosis 1+; Hypochromasia 1+; Polychromasia Few; Target Cells Few
[2017-06-11] MEDS: TUMS PO SCH ×3 (08:38→21:59)
[2017-06-11 08:39] LABS: Diff Status Complete; Microcytosis Few; Poikilocytosis Few
--- NOTE | 2017-06-11 09:00 | Progress Note ---
Assessment and Plan Assessment: Acute CVA / AMS - head CT showed acute stroke in MCA, no hemorrhage Thrombus in distal L ICA and MCA - per chart, neuro currently recommends against heparin gtt in setting of acute CVA and risk of conversion to hemorrhagic CVA. Hyperparathyroidism, s/p subtotal parathyroidectomy on 06/04/2017 CMP - EF 40-45%; no current clinical evidence of acute heart failure Acute respiratory failure / Laryngeal edema/stridor - improving; decadron per pulmonary; s/p intubation HTN ESRD on HD Hyperkalemia - improved Hypocalcemia Morbid obesity History of breast cancer status post mastectomy Plan: Echo reviewed - LV mildly dilated, mild to moderate LVH, EF 40-45%, LA moderate to severely dilated, mild MR, mild AR, mild TR, no thrombus. No clear cardiac cause for acute CVA. Initiate low dose coreg and low dose lisinopril in setting of mild CMP. Hold for HR <60 and/or SBP <100. Consider ischemic evaluation for further eval of CMP etiology once medically stabilized - can be done as OP. Cont ASA and statin. Electrolyte management per nephrology. Currently stable cardiac status. Will follow peripherally over the weekend. The patient has been seen in conjunction with Dr. Quinonez who agrees with the assessment and plan of care. Subjective Date of service: 06/11/17 Principal diagnosis: Inadequate ventilation Interval history: Pt resting in bed, remains withdrawn and nonverbal. On O2 via venti mask. Family at bedside. States pt was agitated overnight and pulled out feeding tube. Objective Vital Signs Temp Pulse Pulse Resp BP Pulse Ox 06/11/17 08:31 66 19 136/82 100 06/11/17 08:00 67 15 136/82 96 06/11/17 07:31 67 19 138/75 99 06/11/17 07:00 73 16 138/75 98 06/11/17 06:31 69 17 143/75 100 06/11/17 06:00 63 14 143/75 96 06/11/17 05:31 66 17 135/74 98 06/11/17 05:00 64 15 135/74 99 06/11/17 04:31 63 17 142/80 99 06/11/17 04:00 68 18 142/80 98 06/11/17 03:37 99.1 F 06/11/17 03:31 68 18 134/73 97 06/11/17 03:00 65 16 134/73 95 06/11/17 02:30 70 16 132/82 92 06/11/17 02:00 65 16 154/74 92 06/11/17 01:30 66 17 138/76 92 06/11/17 01:00 70 17 146/73 92 06/11/17 00:30 68 16 140/75 96 06/11/17 00:00 83 F L 67 65 22 145/74 92 06/10/17 23:30 71 21 140/80 97 06/10/17 23:22 99.4 F 06/10/17 23:00 72 17 145/77 92 06/10/17 22:30 69 17 137/75 92 06/10/17 22:29 68 17 137/75 99 06/10/17 22:00 74 18 132/69 95 06/10/17 21:30 70 15 147/73 98 06/10/17 21:00 67 17 146/77 96 06/10/17 20:46 68 16 100 06/10/17 20:30 67 15 135/70 97 06/10/17 20:00 98.2 F 69 17 140/76 95 06/10/17 19:34 98 06/10/17 19:30 68 17 135/69 92 06/10/17 19:00 67 15 138/70 92 06/10/17 18:30 69 17 131/72 94 06/10/17 18:00 69 14 141/74 93 06/10/17 17:30 68 14 129/75 96 06/10/17 17:00 66 17 151/80 97 06/10/17 16:30 68 14 127/74 96 06/10/17 16:01 76 18 128/85 95 06/10/17 16:00 98.1 F 67 18 99 06/10/17 15:30 65 16 139/80 94 06/10/17 15:00 66 16 149/83 94 06/10/17 14:30 69 20 155/89 94 06/10/17 14:00 64 14 152/86 94 06/10/17 13:30 61 15 163/85 94 06/10/17 13:00 65 16 145/84 93 06/10/17 12:30 65 15 149/78 94 06/10/17 12:00 97.2 F L 64 15 148/82 100 06/10/17 11:30 64 16 156/82 95 06/10/17 11:00 66 14 139/77 95 06/10/17 10:30 65 16 143/81 96 06/10/17 10:00 64 16 146/86 96 06/10/17 09:30 69 17 165/91 98 06/10/17 09:00 61 15 150/82 97 - Physical Examination General: Other (withdrawn, nonverbal) HEENT: Positive: PERRL, Mucus Membranes Moist Neck: Positive: neck supple, trachea midline Cardiac: Positive: Reg Rate and Rhythm Lungs: Positive: Decreased Breath Sounds Neuro: Positive: Weakness (right-sided) Abdomen: Positive: Unremarkable. Negative: Tender Skin: Positive: Clear. Negative: Rash, Wound Musculoskeletal: No Fluid Collection, No Pain, Normal Range of Motion Extremities: Absent: edema - Labs and Meds CBC 06/11/17 Range/Units 06:00 WBC 11.8 H (4.5-11.0) K/mm3 RBC 4.83 (3.65-5.03) M/mm3 Hgb 11.6 (10.1-14.3) gm/dl Hct 37.0 (30.3-42.9) % Plt Count 227 (140-440) K/mm3 Comprehensive Metabolic Panel 06/11/17 Range/Units 06:00 Sodium 140 (137-145) mmol/L Potassium 3.7 (3.6-5.0) mmol/L Chloride 99.1 (98-107) mmol/L Carbon Dioxide 23 (22-30) mmol/L BUN 53 H (7-17) mg/dL Creatinine 6.0 H (0.7-1.2) mg/dL Glucose 90 (65-100) mg/dL Calcium 6.3 L D (8.4-10.2) mg/dL - Imaging and Cardiology EKG: image reviewed Echo: report reviewed (LV mildly dilated, mild to moderate LVH, EF 40-45%, LA moderate to severely dilated, mild MR, mild AR, mild TR. ) - EKG Sinus rhythms and dysrhythmias: sinus rhythm
--- NOTE | 2017-06-11 09:36 | XRay Report ---
Single view chest: Compared to 06/10/17. History: Followup of respiratory failure. Findings: Cardiomegaly with emphysema. Trachea is midline. No consolidation. Left CP angle obscured by enlarged heart. Impression: No significant interval change.
--- NOTE | 2017-06-11 11:04 | Progress Note ---
Assessment and Plan Assessment and plan: 66-year-old female patient significant past medical history of hypertension and obstructive sleep apnea, ESRD on hemodialysis, breast cancer status post mastectomy underwent elective total parathyroidectomy and was admitted to ICU with respiratory failure requiring intubation, she unfortunately a stroke Acute left MCA stroke with right-sided weakness - Neurology consult appreciated -MR brain showed large left MCA acute infarct - on aspirin and statin - Cardiology consulted to rule out cardiac cause of stroke - Vascular surgery consulted no intervention needed - NO heparin GTT for the thrombus because of risk of hemorrhagic transformation -neuro input appreciated, trying mannitol to decrease IC edema Acute hypoxic respiratory failure - Status post extubation, on NIV as needed and ventimask, -given mental status, may need to be re-intubated Metabolic Enchephalopathy -due to CVA and IC edema -continue mannitol Status post subtotal parathyroidectomy/Hypocalcemia - Continue postop care per surgery - continue to replete calcium as needed End-stage renal disease on hemodialysis - Continue hemodialysis as scheduled per nephrology Hyperkalemia -improved with HD Hypertension - Continue When necessary medication History of breast cancer status post mastectomy - Stable Morbid obesity with BMI of 47.8, - Nutrition input appreciated Moderate malnutrition -continue tube feeds The high probability of a clinically significant, sudden or life threatening deterioration of the [respiratory] system(s) required my full and direct attention, intervention and personal management. The aggregate critical care time was [32] minutes. This time is in addition to time spent performing reported procedures but includes the following: [x] Data Review and interpretation [x] Patient assessment and monitoring of vital signs [x] Documentation [x] Medication orders and managementPatient would benefit by outpatient bariatric surgical evaluation for weight reduction program and medically stable CODE STATUS FULL History Interval history: Patient has been less responsive, hypersomnolent Hospitalist Physical - Physical exam Narrative exam: General.: Appears well, no distress, nontoxic HEENT: Moist mucous membranes, extraocular muscles intact, no lymphadenopathy Neck: supple Cardiac: S1-S2 heard Lungs: clear to auscultation bilaterally Abdomen: soft , nontender, nondistended, bowel sounds positive Extremities: no edema clubbing or cyanosis Skin: no rash or lesions Neurologic: Patient is only moving left side of her body responds to painful stimuli, right side is not moving.only moans in response when spoken to, non verbal, does not obey commands Psych: appropriate behavior, appropriate mood, corporative, judgment intact - Constitutional Vitals: Temp Pulse Resp BP Pulse Ox 98.1 F 66 19 136/82 100 06/11/17 08:00 06/11/17 08:31 06/11/17 08:31 06/11/17 08:31 06/11/17 08:31 General appearance: Present: no acute distress, other (withdrawn, nonverbal) Results - Labs CBC & Chem 7: 06/14/17 04:30 06/14/17 04:30 Labs: Laboratory Last Values WBC 11.8 K/mm3 (4.5-11.0) H 06/11/17 06:00 RBC 4.83 M/mm3 (3.65-5.03) 06/11/17 06:00 Hgb 11.6 gm/dl (10.1-14.3) 06/11/17 06:00 POC Hgb 14.3 (12-17) 06/04/17 16:22 Hct 37.0 % (30.3-42.9) 06/11/17 06:00 POC Hct 42 (38-51) 06/04/17 16:22 MCV 77 fl (79-97) L 06/11/17 06:00 MCH 24 pg (28-32) L 06/11/17 06:00 MCHC 31 % (30-34) 06/11/17 06:00 RDW 18.3 % (13.2-15.2) H 06/11/17 06:00 Plt Count 227 K/mm3 (140-440) 06/11/17 06:00 Add Manual Diff Complete 06/11/17 06:00 Total Counted 100 06/11/17 06:00 Seg Neutrophils % Physician Recruiter 06/04/17 00:01 Seg Neuts % (Manual) 88.0 % (40.0-70.0) H 06/11/17 06:00 Band Neutrophils % 1.0 % 06/11/17 06:00 Lymphocytes % (Manual) 7.0 % (13.4-35.0) L 06/11/17 06:00 Reactive Lymphs % (Man) 0 % 06/11/17 06:00 Monocytes % (Manual) 4.0 % (0.0-7.3) 06/11/17 06:00 Eosinophils % (Manual) 0 % (0.0-4.3) 06/10/17 03:29 Basophils % (Manual) 0 % (0.0-1.8) 06/10/17 03:29 Metamyelocytes % 0 % 06/11/17 06:00 Myelocytes % 0 % 06/11/17 06:00 Promyelocytes % 0 % 06/11/17 06:00 Blast Cells % 0 % 06/11/17 06:00 Nucleated RBC % 1.0 % (0.0-0.9) H 06/11/17 06:00 Seg Neutrophils # Man 10.4 K/mm3 (1.8-7.7) H 06/11/17 06:00 Band Neutrophils # 0.1 K/mm3 06/11/17 06:00 Lymphocytes # (Manual) 0.8 K/mm3 (1.2-5.4) L 06/11/17 06:00 Abs React Lymphs (Man) 0.0 K/mm3 06/11/17 06:00 Monocytes # (Manual) 0.5 K/mm3 (0.0-0.8) 06/11/17 06:00 Eosinophils # (Manual) 0.0 K/mm3 (0.0-0.4) 06/11/17 06:00 Basophils # (Manual) 0.0 K/mm3 (0.0-0.1) 06/11/17 06:00 Metamyelocytes # 0.0 K/mm3 06/11/17 06:00 Myelocytes # 0.0 K/mm3 06/11/17 06:00 Promyelocytes # 0.0 K/mm3 06/11/17 06:00 Blast Cells # 0.0 K/mm3 06/11/17 06:00 WBC Morphology Not Reportable 06/11/17 06:00 Hypersegmented Neuts Not Reportable 06/11/17 06:00 Hyposegmented Neuts Not Reportable 06/11/17 06:00 Hypogranular Neuts Not Reportable 06/11/17 06:00 Smudge Cells Not Reportable 06/11/17 06:00 Toxic Granulation Not Reportable 06/11/17 06:00 Toxic Vacuolation Not Reportable 06/11/17 06:00 Dohle Bodies Not Reportable 06/11/17 06:00 Pelger-Huet Anomaly Not Reportable 06/11/17 06:00 Sunita Rods Not Reportable 06/11/17 06:00 Platelet Estimate Appears normal 06/11/17 06:00 Clumped Platelets Not Reportable 06/11/17 06:00 Plt Clumps, EDTA Not Reportable 06/11/17 06:00 Large Platelets Not Reportable 06/11/17 06:00 Giant Platelets Not Reportable 06/11/17 06:00 Platelet Satelliting Not Reportable 06/11/17 06:00 Plt Morphology Comment Not Reportable 06/11/17 06:00 RBC Morphology Not Reportable 06/11/17 06:00 Dimorphic RBCs Not Reportable 06/11/17 06:00 Polychromasia Few 06/11/17 06:00 Hypochromasia 1+ 06/11/17 06:00 Poikilocytosis Few 06/11/17 06:00 Anisocytosis 1+ 06/11/17 06:00 Microcytosis Few 06/11/17 06:00 Macrocytosis Not Reportable 06/11/17 06:00 Spherocytes Not Reportable 06/11/17 06:00 Pappenheimer Bodies Not Reportable 06/11/17 06:00 Sickle Cells Not Reportable 06/11/17 06:00 Target Cells Few 06/11/17 06:00 Tear Drop Cells Not Reportable 06/11/17 06:00 Ovalocytes Not Reportable 06/11/17 06:00 Helmet Cells Not Reportable 06/11/17 06:00 Ramos-Reynolds Bodies Not Reportable 06/11/17 06:00 [place] Rings Not Reportable 06/11/17 06:00 Donaldo Cells Not Reportable 06/11/17 06:00 Bite Cells Not Reportable 06/11/17 06:00 Crenated Cell Not Reportable 06/11/17 06:00 Elliptocytes Not Reportable 06/11/17 06:00 Acanthocytes (Spur) Not Reportable 06/11/17 06:00 Rouleaux Not Reportable 06/11/17 06:00 Hemoglobin C Crystals Not Reportable 06/11/17 06:00 Schistocytes Not Reportable 06/11/17 06:00 Malaria parasites Not Reportable 06/11/17 06:00 Williams Bodies Not Reportable 06/11/17 06:00 Hem Pathologist Commnt No 06/11/17 06:00 PT 13.5 Sec. (12.2-14.9) 06/09/17 16:55 INR 0.98 (0.87-1.13) 06/09/17 16:55 APTT 29.9 Sec. (24.2-36.6) 06/09/17 16:55 POC ABG pH 7.556 (7.35-7.45) H 06/11/17 06:51 POC ABG pCO2 34.8 (35-45) L 06/11/17 06:51 POC ABG pO2 125 (80-105) H 06/11/17 06:51 POC ABG HCO3 30.9 06/11/17 06:51 POC ABG Total CO2 32 06/11/17 06:51 POC ABG O2 Sat 99 06/11/17 06:51 POC ABG Base Excess 9 06/11/17 06:51 POC Sodium 137 mmol/L (138-146) L 06/04/17 16:22 POC Potassium 5.3 (3.5-4.9) H 06/04/17 16:22 POC Chloride 102 (98-109) 06/04/17 16:22 FiO2 50 % 06/11/17 06:51 Sodium 140 mmol/L (137-145) 06/11/17 06:00 Potassium 3.7 mmol/L (3.6-5.0) 06/11/17 06:00 Chloride 99.1 mmol/L (98-107) 06/11/17 06:00 Carbon Dioxide 23 mmol/L (22-30) 06/11/17 06:00 Anion Gap 22 mmol/L 06/11/17 06:00 POC BUN 45 mg/dl (8-26) H 06/04/17 16:22 BUN 53 mg/dL (7-17) H 06/11/17 06:00 Creatinine 6.0 mg/dL (0.7-1.2) H 06/11/17 06:00 Estimated GFR 9 ml/min 06/11/17 06:00 BUN/Creatinine Ratio 9 % 06/11/17 06:00 Glucose 90 mg/dL (65-100) 06/11/17 06:00 POC Glucose 92 (70-105) 06/11/17 05:07 Calcium 6.3 mg/dL (8.4-10.2) L D 06/11/17 06:00 Phosphorus 4.50 mg/dL (2.5-4.5) 06/06/17 07:13 Magnesium 1.90 mg/dL (1.7-2.3) 06/06/17 07:13 Total Bilirubin 0.20 mg/dL (0.1-1.2) 06/06/17 07:13 AST 14 units/L (5-40) 06/06/17 07:13 ALT 15 units/L (7-56) 06/06/17 07:13 Alkaline Phosphatase 79 units/L (35-129) 06/06/17 07:13 Total Protein 5.7 g/dL (6.3-8.2) L 06/06/17 07:13 Albumin 3.3 g/dL (3.9-5) L 06/06/17 07:13 Albumin/Globulin Ratio 1.4 % 06/06/17 07:13 Triglycerides 132 mg/dL (2-149) 06/09/17 11:49 Cholesterol 171 mg/dL (50-199) 06/09/17 11:49 LDL Cholesterol Direct 95 mg/dL (50-130) 06/09/17 11:49 HDL Cholesterol 50 mg/dL (40-59) 06/09/17 11:49 Cholesterol/HDL Ratio 3.42 % 06/09/17 11:49 PTH Pre-Incision 641.9 (11.1-79.5) H 06/04/17 13:55 PTH Post-Excision 154.7 (11.1-79.5) H 06/04/17 13:55 PTH Intact Intraop 5 m Not Reportable 06/04/17 13:55
--- NOTE | 2017-06-11 11:30 | Progress Note ---
Assessment and Plan Impression: * ESRD * hypertension * s/p parathyroidectomy * Anemia in esrd * respiratory failure * Acute CVA Plan: * Continue hemodialysis q mwf * Serum calcium noted to be low. Shall increase the calcium bath to 3.5 * Continue tums and calcitriol * iv calcium prn * neurology and vascular notes reviewed * cva workup in progress * uf as tolerated with hd * epogen with hd * strict i/os * follow up am darryl * Discussed with patient's son and sister at bedside Subjective Date of service: 06/11/17 Principal diagnosis: Inadequate ventilation Interval history: Patient remains in the ICU. Currently on Ventimask with 50% FiO2. Hemodialysis is being initiated. Patient is currently not on any pressors. Objective - Vital Signs Vital signs: Vital Signs - 12hr 06/10/17 06/11/17 06/11/17 23:30 00:00 00:30 Temperature 83 F L Pulse Rate 71 67 68 Pulse Rate [ 65 From Monitor] Respiratory 21 22 16 Rate Blood Pressure 140/80 145/74 140/75 O2 Sat by Pulse 97 92 96 Oximetry O2 Sat by Pulse Oximetry [ Anterior Bilateral Throughout] 06/11/17 06/11/17 06/11/17 01:00 01:30 02:00 Temperature Pulse Rate 70 66 65 Pulse Rate [ From Monitor] Respiratory 17 17 16 Rate Blood Pressure 146/73 138/76 154/74 O2 Sat by Pulse 92 92 92 Oximetry O2 Sat by Pulse Oximetry [ Anterior Bilateral Throughout] 06/11/17 06/11/17 06/11/17 02:30 03:00 03:31 Temperature Pulse Rate 70 65 68 Pulse Rate [ From Monitor] Respiratory 16 16 18 Rate Blood Pressure 132/82 134/73 134/73 O2 Sat by Pulse 92 95 97 Oximetry O2 Sat by Pulse Oximetry [ Anterior Bilateral Throughout] 06/11/17 06/11/17 06/11/17 03:37 04:00 04:31 Temperature 99.1 F Pulse Rate 68 63 Pulse Rate [ From Monitor] Respiratory 18 17 Rate Blood Pressure 142/80 142/80 O2 Sat by Pulse 98 99 Oximetry O2 Sat by Pulse Oximetry [ Anterior Bilateral Throughout] 06/11/17 06/11/17 06/11/17 05:00 05:31 06:00 Temperature Pulse Rate 64 66 63 Pulse Rate [ From Monitor] Respiratory 15 17 14 Rate Blood Pressure 135/74 135/74 143/75 O2 Sat by Pulse 99 98 96 Oximetry O2 Sat by Pulse Oximetry [ Anterior Bilateral Throughout] 06/11/17 06/11/17 06/11/17 06:31 07:00 07:31 Temperature Pulse Rate 69 73 67 Pulse Rate [ From Monitor] Respiratory 17 16 19 Rate Blood Pressure 143/75 138/75 138/75 O2 Sat by Pulse 100 98 99 Oximetry O2 Sat by Pulse Oximetry [ Anterior Bilateral Throughout] 06/11/17 06/11/17 06/11/17 08:00 08:31 10:40 Temperature 98.1 F 98.2 F Pulse Rate 67 66 64 Pulse Rate [ From Monitor] Respiratory 15 19 18 Rate Blood Pressure 136/82 136/82 142/90 O2 Sat by Pulse 96 100 Oximetry O2 Sat by Pulse 100 Oximetry [ Anterior Bilateral Throughout] - General Appearance General appearance: well-developed, well-nourished, appears stated age, other ( on Ventimask) EENT: PERRL, mucous membranes moist Neck: other (scar noted in the anterior aspect of her neck) Respiratory: Present: Clear to Ascultation Cardiology: regular Gastrointestinal: normal, normoactive bowel sounds Integumentary: no rash, other (AV fistula left upper arm. Good bruit and thrill ) - Lab 06/11/17 06:00 06/11/17 06:00 Most recent lab results Calcium 6.3 mg/dL (8.4-10.2) L D 06/11/17 06:00 Phosphorus 4.50 mg/dL (2.5-4.5) 06/06/17 07:13 Magnesium 1.90 mg/dL (1.7-2.3) 06/06/17 07:13
[2017-06-11] MEDS: ROCALTROL PO SCH (11:50)
[2017-06-11] MEDS: PEPCID PO SCH (11:50)
[2017-06-11] MEDS: BABY ASPIRIN PO SCH (11:50)
[2017-06-11] MEDS: HEPARIN SUB-Q SCH ×2 (11:50→21:59)
[2017-06-11] MEDS: MORPHINE IV PRN (12:26)
[2017-06-11] MEDS ORDERED: CALCIUM GLUCONATE 1,000 MG in NACL 0.9% 100 ML IV ONE (12:30)
[2017-06-11] MEDS: APRESOLINE IV PRN (12:42)
--- NOTE | 2017-06-11 14:37 | Progress Note ---
Assessment and Plan Imp: 1. Hyperparathyroidism s/p parathyroidectomy 2. Acute respiratory failure, hypoxia/hypercapnea 3. Morbid obesity 4. ESRD 5. Laryngeal edema/stridor 6. Acute CVA, ? embolic given clot noted on CTA neck Rec: 1. No stridor; stopped steroids 2. Racemic EPI prn only 3. Wean O2 to keep sats 88-94% 4. L IJ CVL position confirmed; would not pull yet as patient with difficult access/multiple issues, and may yet need central access depending on clinical course 5. ASA, statin 6. Reviewed Echo and carotid dopplers 7. HD per renal 8. + Clot in distal L ICA and MCA; neurology recommends against heparin drip due to risk for hemorrhagic transformation; on SubQ heparin now 9. ST/PT/OT 10. DHT with TFs/free water/oral meds 11. Aspiration precautions, d/w RN 12. Mentation worse appears to be getting worse, now with GCS of 7-8; concerned ischemia getting worse versus cerebral edema versus hemorrhagic transformation; recommend repeating CT head but will d/w neurology first; if this is indeed the plan I have recommended that she be intubated for airway protection prior to the CT (d/w RN), which will need to be done by anesthesia given very difficult airway (had difficulty getting her intubated for the parathyroidectomy, and re- intubated in the PACU) 13. Guarded prognosis CCT 31 minutes; no family present today Subjective Date of service: 06/11/17 Principal diagnosis: Inadequate ventilation Interval history: No events. On HD. Eyes close, not opening to voice or stimulation. Moans only. Withdraws to/localizes pain. Hx not obtainable. Remains on a 50% VM currently. Active Medications Lipase/Protease/Amylase (Pancreaze Dr 10,500 Unit) 1 each FEEDTUBE PRN PRN PRN Reason: For Clogged Feeding Tube Aspirin (Baby Aspirin) 81 mg PO QDAY [facility] Last Admin: 06/11/17 11:50 Dose: 81 mg Atorvastatin Calcium (Lipitor) 40 mg PO QHS [facility] Last Admin: 06/10/17 21:32 Dose: 40 mg Bisacodyl (Dulcolax) 10 mg [place] QDAY PRN PRN Reason: constipation unrelieved by MOM Calcitriol (Rocaltrol) 0.5 mcg PO QDAY [facility] Last Admin: 06/11/17 11:50 Dose: 0.5 mcg Calcium Carbonate/Glycine (Tums) 1,000 mg PO TID [facility] Last Admin: 06/11/17 08:38 Dose: 1,000 mg Epoetin Riccardo (Procrit) 10,000 unit IV KAYLA PRN PRN Reason: hemodialysis Last Admin: 06/07/17 18:39 Dose: 10,000 unit Famotidine (Pepcid) 20 mg PO DAILY [facility] Last Admin: 06/11/17 11:50 Dose: 20 mg Heparin Sodium (Porcine) (Heparin) 5,000 unit SUB-Q Q12HR [facility] Last Admin: 06/11/17 11:50 Dose: 5,000 unit Hydralazine HCl (Apresoline) 5 mg IV Q6HR PRN PRN Reason: SBP>160 Last Admin: 06/11/17 12:42 Dose: 5 mg Hydrophilic Ointment (Vaseline Lip Therapy) 1 applic TP Q2HR PRN PRN Reason: Dry Lips Last Admin: 06/05/17 17:46 Dose: 1 applic Sodium Chloride (Nacl 0.9%) 100 mls @ 999 mls/hr IV KAYLA PRN PRN Reason: Hypotension Multi-Ingred Cream/Lotion/Oil/Oint (Artificial Tears Ophth Oint) 1 applic OU Q4HR PRN PRN Reason: Dry Eye(s) Simple Syrup (Simple Syrup) 15 ml FEEDTUBE PRN PRN PRN Reason: Hypoglycemia Simple Syrup (Simple Syrup) 30 ml FEEDTUBE PRN PRN PRN Reason: Hypoglycemia Sodium Bicarbonate (Sodium Bicarbonate) 325 mg FEEDTUBE PRN PRN PRN Reason: For Clogged Feeding Tube Objective Vital Signs - 12hr 06/11/17 06/11/17 06/11/17 03:00 03:31 03:37 Temperature 99.1 F Pulse Rate 65 68 Respiratory 16 18 Rate Blood Pressure 134/73 134/73 O2 Sat by Pulse 95 97 Oximetry O2 Sat by Pulse Oximetry [ Anterior Bilateral Throughout] 06/11/17 06/11/17 06/11/17 04:00 04:31 05:00 Temperature Pulse Rate 68 63 64 Respiratory 18 17 15 Rate Blood Pressure 142/80 142/80 135/74 O2 Sat by Pulse 98 99 99 Oximetry O2 Sat by Pulse Oximetry [ Anterior Bilateral Throughout] 06/11/17 06/11/17 06/11/17 05:31 06:00 06:31 Temperature Pulse Rate 66 63 69 Respiratory 17 14 17 Rate Blood Pressure 135/74 143/75 143/75 O2 Sat by Pulse 98 96 100 Oximetry O2 Sat by Pulse Oximetry [ Anterior Bilateral Throughout] 06/11/17 06/11/17 06/11/17 07:00 07:31 08:00 Temperature 98.1 F Pulse Rate 73 67 67 Respiratory 16 19 15 Rate Blood Pressure 138/75 138/75 136/82 O2 Sat by Pulse 98 99 96 Oximetry O2 Sat by Pulse Oximetry [ Anterior Bilateral Throughout] 06/11/17 06/11/17 06/11/17 08:31 10:00 10:40 Temperature 98.2 F Pulse Rate 66 62 Respiratory 19 18 Rate Blood Pressure 136/82 153/82 O2 Sat by Pulse 100 98 Oximetry O2 Sat by Pulse 100 Oximetry [ Anterior Bilateral Throughout] 06/11/17 06/11/17 06/11/17 11:00 11:15 11:30 Temperature Pulse Rate 64 65 64 Respiratory Rate Blood Pressure 151/86 161/88 159/91 O2 Sat by Pulse Oximetry O2 Sat by Pulse Oximetry [ Anterior Bilateral Throughout] 06/11/17 06/11/17 06/11/17 11:45 12:00 12:15 Temperature 98.4 F Pulse Rate 64 51 L 58 L Respiratory Rate Blood Pressure 169/101 160/94 175/95 O2 Sat by Pulse Oximetry O2 Sat by Pulse Oximetry [ Anterior Bilateral Throughout] 06/11/17 06/11/17 06/11/17 12:30 12:42 12:45 Temperature Pulse Rate 53 L 54 L 54 L Respiratory Rate Blood Pressure 178/84 178/84 157/83 O2 Sat by Pulse Oximetry O2 Sat by Pulse Oximetry [ Anterior Bilateral Throughout] 06/11/17 06/11/17 06/11/17 13:00 13:15 13:30 Temperature Pulse Rate 55 L 57 L 55 L Respiratory Rate Blood Pressure 173/80 152/80 142/78 O2 Sat by Pulse Oximetry O2 Sat by Pulse Oximetry [ Anterior Bilateral Throughout] 06/11/17 06/11/17 06/11/17 13:45 14:00 14:10 Temperature Pulse Rate 56 L 66 64 Respiratory Rate Blood Pressure 158/88 187/99 150/105 O2 Sat by Pulse Oximetry O2 Sat by Pulse Oximetry [ Anterior Bilateral Throughout] Constitutional: other (critically ill, confused per above) Eyes: non-icteric ENT: other (orally intubated) Neck: supple, other (no stridor) Effort: normal Ascultation: Bilateral: other (coarse BS bilaterally) Percussion: Bilateral: not dull Cardiovascular: regular rate and rhythm (no mrg) Gastrointestinal: normoactive bowel sounds, soft, non-tender, non-distended, other (obese) Integumentary: normal Extremities: no cyanosis, no edema, pink and warm, edema Neurologic: other (altered mentation, R-hemiparesis) Psychiatric: mood appropriate, affect normal CBC and BMP: 06/11/17 06:00 06/11/17 06:00 ABG, PT/INR, D-dimer: ABG POC ABG pH 7.556 (7.35-7.45) H 06/11/17 06:51 POC ABG pCO2 34.8 (35-45) L 06/11/17 06:51 POC ABG pO2 125 (80-105) H 06/11/17 06:51 POC ABG HCO3 30.9 06/11/17 06:51 POC ABG Total CO2 32 06/11/17 06:51 POC ABG O2 Sat 99 06/11/17 06:51 PT/INR, D-dimer PT 13.5 Sec. (12.2-14.9) 06/09/17 16:55 INR 0.98 (0.87-1.13) 06/09/17 16:55 Abnormal lab findings: Abnormal Labs 06/04/17 06/04/17 06/04/17 00:01 12:50 13:55 WBC 11.4 H POC Hct MCV 76 L MCH 23 L RDW 18.5 H Seg Neuts % (Manual) 89.0 H Lymphocytes % (Manual) 6.0 L Nucleated RBC % Seg Neutrophils # Man 10.1 H Lymphocytes # (Manual) 0.7 L POC ABG pH POC ABG pCO2 POC ABG pO2 POC Sodium POC Potassium Potassium 5.1 H 5.2 H Chloride POC BUN BUN 48 H Creatinine 6.2 H Glucose POC Glucose Calcium Total Protein Albumin PTH Pre-Incision PTH Post-Excision 06/04/17 06/04/17 06/04/17 13:55 16:10 16:16 WBC POC Hct 37 L MCV MCH RDW Seg Neuts % (Manual) Lymphocytes % (Manual) Nucleated RBC % Seg Neutrophils # Man Lymphocytes # (Manual) POC ABG pH 7.306 L POC ABG pCO2 58.7 H POC ABG pO2 338 H POC Sodium 135 L POC Potassium 5.2 H Potassium Chloride POC BUN 44 H BUN Creatinine Glucose POC Glucose 183 H Calcium Total Protein Albumin PTH Pre-Incision 641.9 H PTH Post-Excision 154.7 H 06/04/17 06/04/17 06/04/17 16:22 20:44 21:29 WBC POC Hct MCV MCH RDW Seg Neuts % (Manual) Lymphocytes % (Manual) Nucleated RBC % Seg Neutrophils # Man Lymphocytes # (Manual) POC ABG pH 7.484 H POC ABG pCO2 POC ABG pO2 POC Sodium 137 L POC Potassium 5.3 H Potassium 5.2 H Chloride POC BUN 45 H BUN 51 H Creatinine 6.5 H Glucose 119 H POC Glucose 176 H Calcium Total Protein Albumin PTH Pre-Incision PTH Post-Excision 06/05/17 06/05/17 06/05/17 03:31 11:44 11:44 WBC 13.4 H POC Hct MCV 75 L MCH 23 L RDW 18.2 H Seg Neuts % (Manual) Lymphocytes % (Manual) Nucleated RBC % Seg Neutrophils # Man Lymphocytes # (Manual) POC ABG pH POC ABG pCO2 POC ABG pO2 75 L POC Sodium POC Potassium Potassium 5.8 H Chloride POC BUN BUN 56 H Creatinine 7.0 H Glucose 111 H POC Glucose Calcium 8.2 L Total Protein 6.2 L Albumin 3.1 L PTH Pre-Incision PTH Post-Excision 06/06/17 06/06/17 06/07/17 05:07 07:13 03:53 WBC POC Hct MCV MCH RDW Seg Neuts % (Manual) Lymphocytes % (Manual) Nucleated RBC % Seg Neutrophils # Man Lymphocytes # (Manual) POC ABG pH POC ABG pCO2 POC ABG pO2 116 H 137 H POC Sodium POC Potassium Potassium Chloride POC BUN BUN 32 H Creatinine 4.9 H Glucose 115 H POC Glucose Calcium 7.9 L Total Protein 5.7 L Albumin 3.3 L PTH Pre-Incision PTH Post-Excision 06/07/17 06/07/17 06/07/17 05:21 05:21 16:54 WBC POC Hct MCV 75 L MCH 24 L RDW 18.7 H Seg Neuts % (Manual) Lymphocytes % (Manual) Nucleated RBC % Seg Neutrophils # Man Lymphocytes # (Manual) POC ABG pH POC ABG pCO2 POC ABG pO2 POC Sodium POC Potassium Potassium 5.4 H Chloride POC BUN BUN 52 H Creatinine 6.2 H Glucose 107 H POC Glucose 110 H Calcium 8.0 L Total Protein Albumin PTH Pre-Incision PTH Post-Excision 06/07/17 06/07/17 06/08/17 17:38 23:32 04:00 WBC POC Hct MCV 77 L MCH 23 L RDW 18.3 H Seg Neuts % (Manual) 78.0 H Lymphocytes % (Manual) Nucleated RBC % 3.0 H Seg Neutrophils # Man 7.8 H Lymphocytes # (Manual) POC ABG pH 7.310 L POC ABG pCO2 51.9 H POC ABG pO2 POC Sodium POC Potassium Potassium Chloride POC BUN BUN Creatinine Glucose POC Glucose 63 L Calcium Total Protein Albumin PTH Pre-Incision PTH Post-Excision 06/08/17 06/08/17 06/08/17 04:00 10:51 11:25 WBC POC Hct MCV MCH RDW Seg Neuts % (Manual) Lymphocytes % (Manual) Nucleated RBC % Seg Neutrophils # Man Lymphocytes # (Manual) POC ABG pH 7.336 L POC ABG pCO2 55.1 H POC ABG pO2 POC Sodium POC Potassium Potassium Chloride 96.9 L POC BUN BUN 29 H Creatinine 4.6 H Glucose POC Glucose 108 H Calcium 8.3 L Total Protein Albumin PTH Pre-Incision PTH Post-Excision 06/08/17 06/09/17 06/09/17 14:22 11:42 11:42 WBC POC Hct MCV 76 L MCH 24 L RDW 18.3 H Seg Neuts % (Manual) 80.0 H Lymphocytes % (Manual) 10.0 L Nucleated RBC % 2.0 H Seg Neutrophils # Man Lymphocytes # (Manual) 1.0 L POC ABG pH POC ABG pCO2 52.8 H POC ABG pO2 77 L POC Sodium POC Potassium Potassium 5.4 H D Chloride 97.1 L POC BUN BUN 58 H Creatinine 6.6 H Glucose POC Glucose Calcium 7.2 L Total Protein Albumin PTH Pre-Incision PTH Post-Excision 06/09/17 06/10/17 06/10/17 12:04 03:29 03:29 WBC 13.7 H POC Hct MCV 77 L MCH 24 L RDW 17.9 H Seg Neuts % (Manual) 82.0 H Lymphocytes % (Manual) 7.0 L Nucleated RBC % 6.0 H Seg Neutrophils # Man 11.2 H Lymphocytes # (Manual) 1.0 L POC ABG pH POC ABG pCO2 POC ABG pO2 POC Sodium POC Potassium Potassium Chloride 94.2 L POC BUN BUN 32 H Creatinine 4.6 H Glucose 106 H POC Glucose 106 H Calcium 8.0 L Total Protein Albumin PTH Pre-Incision PTH Post-Excision 06/10/17 06/11/17 06/11/17 05:27 06:00 06:00 WBC 11.8 H POC Hct MCV 77 L MCH 24 L RDW 18.3 H Seg Neuts % (Manual) 88.0 H Lymphocytes % (Manual) 7.0 L Nucleated RBC % 1.0 H Seg Neutrophils # Man 10.4 H Lymphocytes # (Manual) 0.8 L POC ABG pH POC ABG pCO2 POC ABG pO2 POC Sodium POC Potassium Potassium Chloride POC BUN BUN 53 H Creatinine 6.0 H Glucose POC Glucose 106 H Calcium 6.3 L D Total Protein Albumin PTH Pre-Incision PTH Post-Excision 06/11/17 06:51 WBC POC Hct MCV MCH RDW Seg Neuts % (Manual) Lymphocytes % (Manual) Nucleated RBC % Seg Neutrophils # Man Lymphocytes # (Manual) POC ABG pH 7.556 H POC ABG pCO2 34.8 L POC ABG pO2 125 H POC Sodium POC Potassium Potassium Chloride POC BUN BUN Creatinine Glucose POC Glucose Calcium Total Protein Albumin PTH Pre-Incision PTH Post-Excision Chest x-ray: report reviewed, image reviewed (no significant change)
[2017-06-11] MEDS ORDERED: ARTIFICIAL TEARS OPHTH OINT OU PRN (15:36)
--- NOTE | 2017-06-11 15:37 | Event Note ---
Date: 06/11/17 Called by ICU nurse that patient needs intubation. Dr Carmen pulmonary has requested patient be intubated for airway protection due to AMS. Pt is 1week post parathyroidectomy. She had CVA earlier this week and has had AMS since. Report is that she was a difficult intubation for surgery. Patient was on facemask sats in high 90s on my arrival at bedside. Etomidate 20mg and rocuronium 50mg given to facilitate intubation. DL was done with Mac 3 blade and bougie was passed easily through cords. 7.5 ETT inserted over bougie. Bougie removed with tube in place at 21cm. Good color change noted with co2 detector and bilateral breath sounds were present. handed off to RT for securing. Patient stable post intubation.
[2017-06-11] MEDS ORDERED: NACL 0.9% 500 ML IV SCH (16:00)
[2017-06-11] MEDS ORDERED: fentaNYL DRIP Premix 2,000 MCG/100 ML BAG IV SCH (16:00)
--- NOTE | 2017-06-11 16:14 | XRay Report ---
Single view chest: Compared to 06/11/17. History: ET tube placement. Findings: Cardiomegaly. Tip of endotracheal tube in normal position. Tip of NG tube below diaphragm. No consolidation, pneumothorax or pleural effusion. Impression: Tip of endotracheal tube in normal position. No acute lung changes.
--- NOTE | 2017-06-11 17:15 | Cat Scan Report ---
FINAL REPORT EXAM: CT HEAD/BRAIN WO CON HISTORY: change in mental status. TECHNIQUE: CT head without contrast PRIORS: Correlation made to prior CT angio neck of June 08, 2017 FINDINGS: There is diffuse hypodensity throughout the left MCA distribution involving frontal temporal and parietal lobes with effacement ventricles and sulci. There is approximately 0.96 centimeters left to right midline shift.. MCA infarct was identified on the prior CTA neck There is effacement of the basal cisterns consistent with uncal herniation. A dense left MCA is identified. No acute intracranial or extra-axial hemorrhage identified. IMPRESSION: Large left MCA acute subacute infarct with thrombus seen within the left MCA. Left right midline shift 0.96 centimeters The basement of basal cisterns consistent with uncal herniation. No acute hemorrhage identified.
--- NOTE | 2017-06-11 17:44 | Consultation ---
History of Present Illness - Reason for Consult Consult date: 06/11/17 stroke - History of Present Illness I went over the CT of brain from today over the telerad service as they called me but as well I had reviewed the films myself the large infarct in the left Internal and left MCA territory stilll noted and there is edema as expected from thrombus in the artery there is no bleed into the brain ... as mentioned to nurse in general use of heparin in acute ischemic stroke is not in favor in the neuro stroke consensus because of poor outcomes i.e. brain bleeds with heparin multiple problems co-developing in this p[atient and she was worse today about same time as dialysis... I have know of dialysis to increase brain edema shift- I will try mannitol Past History Past Medical History: cancer (breast), dialysis, ESRD, hypertension, renal failure, other (hyperparathyroidism; MELVI) Past Surgical History: mastectomy, Other (Parathyroidectomy) Social history: single. denies: smoking, alcohol abuse, prescription drug abuse , IV drug use Family history: hypertension Medications and Allergies Allergies Allergy/AdvReac Type Severity Reaction Status Date / Time No Known Allergies Allergy Verified 06/01/17 16:40 Home Medications Medication Instructions Recorded Confirmed Last Taken Type Aspirin [Adult Low Dose Aspirin EC] 81 mg PO DAILY 06/01/17 06/04/17 06/02/17 History Cinacalcet HCl [Sensipar] 180 mg PO DAILY 06/01/17 06/01/17 06/03/17 History Furosemide [Lasix TAB] 80 mg PO QDAY 06/01/17 06/01/17 Unknown History Losartan [Cozaar] 100 mg PO QDAY 06/01/17 06/01/17 06/04/17 07:00 History Metoprolol [Lopressor TAB] 50 mg PO BID 06/01/17 06/01/17 06/04/17 07:00 History Sevelamer Carbonate [Renvela] 1,600 mg PO TIDWM 06/01/17 06/01/17 06/03/17 History Active Meds: Active Medications Lipase/Protease/Amylase (Joaquin Stallworth 10,500 Unit) 1 each FEEDTUBE PRN PRN PRN Reason: For Clogged Feeding Tube Aspirin (Baby Aspirin) 81 mg PO QDAY JANE Last Admin: 06/11/17 11:50 Dose: 81 mg Atorvastatin Calcium (Lipitor) 40 mg PO QHS [facility] Last Admin: 06/10/17 21:32 Dose: 40 mg Bisacodyl (Dulcolax) 10 mg UT QDAY PRN PRN Reason: constipation unrelieved by MOM Calcitriol (Rocaltrol) 0.5 mcg PO QDAY [facility] Last Admin: 06/11/17 11:50 Dose: 0.5 mcg Calcium Carbonate/Glycine (Tums) 1,000 mg PO TID [facility] Last Admin: 06/11/17 15:34 Dose: 1,000 mg Epoetin Riccardo (Procrit) 10,000 unit IV KAYLA PRN PRN Reason: hemodialysis Last Admin: 06/07/17 18:39 Dose: 10,000 unit Famotidine (Pepcid) 20 mg PO DAILY [facility] Last Admin: 06/11/17 11:50 Dose: 20 mg Heparin Sodium (Porcine) (Heparin) 5,000 unit SUB-Q Q12HR [facility] Last Admin: 06/11/17 11:50 Dose: 5,000 unit Hydralazine HCl (Apresoline) 5 mg IV Q6HR PRN PRN Reason: SBP>160 Last Admin: 06/11/17 12:42 Dose: 5 mg Hydrophilic Ointment (Vaseline Lip Therapy) 1 applic TP Q2HR PRN PRN Reason: Dry Lips Last Admin: 06/05/17 17:46 Dose: 1 applic Sodium Chloride (Nacl 0.9%) 100 mls @ 999 mls/hr IV KAYLA PRN PRN Reason: Hypotension Fentanyl Citrate (Fentanyl Drip Premix) 2,000 mcg in 100 mls @ 6.124 mls/hr IV TITR JANE; 1 MCG/KG/HR PRN Reason: Protocol Multi-Ingred Cream/Lotion/Oil/Oint (Artificial Tears Ophth Oint) 1 applic OU Q4HR PRN PRN Reason: Dry Eye(s) Multi-Ingred Cream/Lotion/Oil/Oint (Artificial Tears Ophth Oint) 1 applic OU Q4HR PRN PRN Reason: Dry Eye(s) Simple Syrup (Simple Syrup) 15 ml FEEDTUBE PRN PRN PRN Reason: Hypoglycemia Simple Syrup (Simple Syrup) 30 ml FEEDTUBE PRN PRN PRN Reason: Hypoglycemia Sodium Bicarbonate (Sodium Bicarbonate) 325 mg FEEDTUBE PRN PRN PRN Reason: For Clogged Feeding Tube Sodium Chloride (Nacl 0.9% 500 Ml) 1 ml IV DIRECT JANE Exam - Constitutional Vitals: Temp Pulse Resp BP Pulse Ox 98.5 F 72 18 112/80 100 06/11/17 16:00 06/11/17 16:00 06/11/17 16:00 06/11/17 16:00 06/11/17 16:00 Results - Labs CBC & Chem 7: 06/11/17 06:00 06/11/17 06:00 Labs: Abnormal lab results 06/11/17 06/11/17 06/11/17 Range/Units 06:00 06:00 06:51 WBC 11.8 H (4.5-11.0) K/mm3 MCV 77 L (79-97) fl MCH 24 L (28-32) pg RDW 18.3 H (13.2-15.2) % Seg Neuts % (Manual) 88.0 H (40.0-70.0) % Lymphocytes % (Manual) 7.0 L (13.4-35.0) % Nucleated RBC % 1.0 H (0.0-0.9) % Seg Neutrophils # Man 10.4 H (1.8-7.7) K/mm3 Lymphocytes # (Manual) 0.8 L (1.2-5.4) K/mm3 POC ABG pH 7.556 H (7.35-7.45) POC ABG pCO2 34.8 L (35-45) POC ABG pO2 125 H (80-105) BUN 53 H (7-17) mg/dL Creatinine 6.0 H (0.7-1.2) mg/dL Calcium 6.3 L D (8.4-10.2) mg/dL
[2017-06-11] MEDS ORDERED: OSMITROL 20% IV SCH (18:00)
[2017-06-11 20:30] LABS: ABG Base Excess 2.1 mmol/L (-2.0-3.0); ABG HCO3 24.5 mmol/L (20.0-26.0); ABG PCO2 31.2 mm Hg; ABG PH 7.512 pH Units (7.350-7.450); ABG PO2 148.5 mm Hg (80.0-90.0)
[2017-06-11] MEDS: OSMITROL IV SCH (21:01)
[2017-06-11] MEDS: VIAFLEX EMPTY CONTAINER IV SCH (21:01)
[2017-06-12] MEDS: OSMITROL IV SCH ×5 (01:22→19:34)
[2017-06-12] MEDS: VIAFLEX EMPTY CONTAINER IV SCH ×5 (01:22→19:34)
[2017-06-12 04:27] LABS: ABG Base Excess 1.2 mmol/L (-2.0-3.0); ABG HCO3 23.4 mmol/L (20.0-26.0); ABG Oxygen Saturation 99.3 % (95.0-99.0); ABG PCO2 29.8 mm Hg; ABG PH 7.514 pH Units (7.350-7.450); ABG PO2 209.1 mm Hg (80.0-90.0)
[2017-06-12 07:00] LABS: Hematocrit 35.6 % (30.3-42.9); Hemoglobin 11.3 gm/dl (10.1-14.3); Mean Corpuscular HGB Conc 32 % (30-34); Mean Corpuscular Volume 75 fl (79-97); Platelet Count 218 K/mm3 (140-440); Red Blood Count 4.73 M/mm3 (3.65-5.03); Red Cell Distribution Width 18.5 % (13.2-15.2); White Blood Count 14.3 K/mm3 (4.5-11.0)
[2017-06-12 07:01] LABS: Mean Corpuscular Hemoglobin 24 pg (28-32)
[2017-06-12 07:40] LABS: Calcium 8.5 mg/dL (8.4-10.2); Chloride 90.6 mmol/L (98-107); Potassium 4.2 mmol/L (3.6-5.0)
[2017-06-12 08:50] LABS: Anisocytosis 1+; Basophils % (Manual) 0 % (0.0-1.8); Blastocytes % (Manual) 0 %; Hypochromasia 1+
[2017-06-12 08:51] LABS: Diff Status Complete; Poikilocytosis Few; Polychromasia Few
--- NOTE | 2017-06-12 09:02 | Progress Note ---
Assessment and Plan Acute CVA / AMS - head CT showed acute stroke in MCA, no hemorrhage Thrombus in distal L ICA and MCA - per chart, neuro currently recommends against heparin gtt in setting of acute CVA and risk of conversion to hemorrhagic CVA. Hyperparathyroidism, s/p subtotal parathyroidectomy on 06/04/2017 CMP - EF 40-45%; no current clinical evidence of acute heart failure Acute respiratory failure / Laryngeal edema/stridor - improving; decadron per pulmonary; s/p intubation HTN ESRD on HD Hyperkalemia - improved Hypocalcemia Morbid obesity History of breast cancer status post mastectomy Plan: Echo reviewed - LV mildly dilated, mild to moderate LVH, EF 40-45%, LA moderate to severely dilated, mild MR, mild AR, mild TR, no thrombus. No clear cardiac cause for acute CVA. Discussed with family at the bedside about cardiac status will hold beta blockers and Dandy in ARB in view of lower blood pressure readings Subjective Date of service: 06/12/17 Principal diagnosis: Inadequate ventilation Interval history: pt on vent Objective Vital Signs Temp Pulse Pulse Resp BP Pulse Ox Pulse Ox 06/12/17 08:46 73 15 86/50 100 06/12/17 08:30 71 16 86/50 06/12/17 08:16 70 16 89/54 100 06/12/17 08:06 70 89/54 100 06/12/17 08:00 98.2 F 70 16 89/54 06/12/17 07:46 70 16 92/60 100 06/12/17 07:30 70 16 94/54 100 06/12/17 07:16 70 16 92/60 100 06/12/17 07:00 70 16 79/49 100 06/12/17 06:46 70 16 83/50 99 06/12/17 06:30 70 17 80/53 99 06/12/17 06:16 69 16 95/57 99 06/12/17 06:00 69 16 95/57 100 06/12/17 05:46 68 16 91/59 100 06/12/17 05:30 68 16 82/54 100 06/12/17 05:16 68 16 101/58 100 06/12/17 05:00 66 17 101/58 99 06/12/17 04:46 68 17 99/61 95 06/12/17 04:37 61 99/61 100 06/12/17 04:30 70 17 99/61 98 06/12/17 04:16 70 16 100/62 99 06/12/17 04:00 69 60 17 95/55 100 06/12/17 03:54 98.9 F 06/12/17 03:46 74 17 95/55 100 06/12/17 03:30 76 21 87/54 99 06/12/17 03:16 77 22 87/54 83 L 06/12/17 03:00 67 16 95/55 99 06/12/17 02:46 68 15 96/54 99 06/12/17 02:30 63 16 87/54 99 06/12/17 02:16 65 16 96/54 99 06/12/17 02:00 64 16 96/54 99 06/12/17 01:46 66 16 88/52 97 06/12/17 01:30 67 16 88/49 100 06/12/17 01:16 65 16 88/52 98 06/12/17 01:00 65 16 88/52 99 06/12/17 00:46 66 16 87/54 100 06/12/17 00:30 65 16 87/54 100 06/12/17 00:16 65 16 90/57 100 06/12/17 00:00 64 66 16 90/57 100 06/11/17 23:48 64 89/58 100 06/11/17 23:47 98.4 F 06/11/17 23:46 64 16 89/58 100 06/11/17 23:30 62 15 89/58 100 06/11/17 23:16 64 16 96/56 98 06/11/17 23:00 64 16 96/56 100 06/11/17 22:46 64 16 114/61 100 06/11/17 22:30 61 16 114/61 97 06/11/17 22:16 64 16 112/68 95 06/11/17 22:00 64 16 89/54 98 06/11/17 21:45 63 16 106/68 97 06/11/17 21:30 63 19 89/57 96 06/11/17 21:15 66 19 104/69 97 06/11/17 21:00 68 18 96/57 96 06/11/17 20:45 67 15 93/61 96 06/11/17 20:33 77 101/66 97 06/11/17 20:30 69 18 101/66 90 06/11/17 20:16 66 18 99/64 96 06/11/17 20:00 67 66 18 99/64 96 06/11/17 19:45 67 18 99/64 96 06/11/17 19:39 98.1 F 06/11/17 19:30 66 18 106/69 96 06/11/17 19:15 67 18 101/66 97 06/11/17 19:00 64 18 103/71 95 06/11/17 18:45 66 18 105/66 95 06/11/17 18:30 65 18 100/67 97 06/11/17 18:15 65 18 100/62 96 06/11/17 18:00 67 18 115/75 96 06/11/17 17:45 65 18 102/63 99 06/11/17 17:30 64 18 98/65 100 06/11/17 17:15 64 18 112/63 96 06/11/17 17:00 67 18 120/78 100 06/11/17 16:54 100/65 98 06/11/17 16:15 116/80 100 06/11/17 16:00 98.5 F 72 18 112/80 98 06/11/17 15:45 70 18 114/70 100 06/11/17 15:36 63 98/65 98 06/11/17 15:30 73 16 106/62 100 06/11/17 15:15 81 18 140/83 100 06/11/17 15:00 61 20 144/82 98 06/11/17 14:45 98.2 F 61 19 163/90 97 06/11/17 14:30 51 L 18 169/90 97 06/11/17 14:15 70 15 150/105 97 06/11/17 14:10 64 150/105 06/11/17 14:00 80 20 187/99 06/11/17 13:45 59 L 19 158/88 95 06/11/17 13:30 58 L 18 142/78 96 06/11/17 13:15 61 19 152/80 93 06/11/17 13:00 58 L 19 173/80 96 06/11/17 12:45 52 L 17 157/93 97 06/11/17 12:42 54 L 178/84 06/11/17 12:30 55 L 18 178/84 97 06/11/17 12:15 61 16 176/95 97 06/11/17 12:00 98.4 F 62 14 160/94 97 06/11/17 11:45 63 14 169/101 99 06/11/17 11:30 63 18 159/91 99 06/11/17 11:15 62 16 161/88 99 06/11/17 11:00 65 13 151/88 100 06/11/17 10:45 64 17 153/92 100 06/11/17 10:40 98.2 F 62 18 153/82 100 06/11/17 10:31 63 16 142/90 100 06/11/17 10:15 64 15 148/88 100 06/11/17 10:00 68 18 148/88 100 06/11/17 09:45 67 16 126/84 95 06/11/17 09:31 67 15 126/84 100 06/11/17 09:15 65 17 126/84 100 - Physical Examination General: Other (withdrawn, nonverbal) HEENT: Positive: PERRL, Mucus Membranes Moist Neck: Positive: neck supple, trachea midline Cardiac: Positive: Reg Rate and Rhythm Lungs: Positive: clear to auscultation Neuro: Positive: Weakness (right-sided) Abdomen: Positive: Unremarkable. Negative: Tender Skin: Positive: Clear. Negative: Rash, Wound Musculoskeletal: No Fluid Collection, No Pain, Normal Range of Motion Extremities: Absent: edema - Labs and Meds CBC 06/12/17 Range/Units 05:30 WBC 14.3 H (4.5-11.0) K/mm3 RBC 4.73 (3.65-5.03) M/mm3 Hgb 11.3 (10.1-14.3) gm/dl Hct 35.6 (30.3-42.9) % Plt Count 218 (140-440) K/mm3 Comprehensive Metabolic Panel 06/12/17 Range/Units 05:30 Sodium 131 L D (137-145) mmol/L Potassium 4.2 (3.6-5.0) mmol/L Chloride 90.6 L (98-107) mmol/L Carbon Dioxide 24 (22-30) mmol/L BUN 51 H (7-17) mg/dL Creatinine 6.5 H (0.7-1.2) mg/dL Glucose 99 (65-100) mg/dL Calcium 8.5 D (8.4-10.2) mg/dL - Imaging and Cardiology EKG: image reviewed Echo: report reviewed (LV mildly dilated, mild to moderate LVH, EF 40-45%, LA moderate to severely dilated, mild MR, mild AR, mild TR. ) - Telemetry EKG Rhythm: Sinus Rhythm - EKG Sinus rhythms and dysrhythmias: sinus rhythm
--- NOTE | 2017-06-12 10:17 | XRay Report ---
AP CHEST: HISTORY: Followup respiratory failure Lines and support devices remain in the same position. Mild cardiomegaly and pulmonary venous congestion are stable. There is poor visualization of the left lower lobe secondary to the heart, otherwise, the lungs are clear. IMPRESSION: No change.
--- NOTE | 2017-06-12 11:07 | Progress Note ---
Assessment and Plan Impression: * ESRD * hypertension * s/p parathyroidectomy * Anemia in esrd * respiratory failure * Acute CVA Plan: * Continue hemodialysis q mwf * Serum calcium noted to be better. Continue current calcium supplements as well as calcium bath to 3.5 with dialysis * Continue tums and calcitriol * iv calcium prn * neurology and vascular notes reviewed * cva workup in progress * uf as tolerated with hd * epogen with hd * strict i/os * follow up am darryl Edwards Date of service: 06/12/17 Principal diagnosis: Inadequate ventilation Interval history: Patient remains in the ICU. Patient is now on the ventilator. Currently on 40 % FiO2 . Uneventful hemodialysis yesterday. Patient is currently not on any pressors. Objective - Vital Signs Vital signs: Vital Signs - 12hr 06/11/17 06/11/17 06/11/17 23:16 23:30 23:46 Temperature Pulse Rate 64 62 64 Pulse Rate [ From Monitor] Respiratory 16 15 16 Rate Blood Pressure 96/56 89/58 89/58 O2 Sat by Pulse 98 100 100 Oximetry 06/11/17 06/11/17 06/12/17 23:47 23:48 00:00 Temperature 98.4 F Pulse Rate 64 64 Pulse Rate [ 66 From Monitor] Respiratory 16 Rate Blood Pressure 89/58 90/57 O2 Sat by Pulse 100 100 Oximetry 06/12/17 06/12/17 06/12/17 00:16 00:30 00:46 Temperature Pulse Rate 65 65 66 Pulse Rate [ From Monitor] Respiratory 16 16 16 Rate Blood Pressure 90/57 87/54 87/54 O2 Sat by Pulse 100 100 100 Oximetry 06/12/17 06/12/17 06/12/17 01:00 01:16 01:30 Temperature Pulse Rate 65 65 67 Pulse Rate [ From Monitor] Respiratory 16 16 16 Rate Blood Pressure 88/52 88/52 88/49 O2 Sat by Pulse 99 98 100 Oximetry 06/12/17 06/12/17 06/12/17 01:46 02:00 02:16 Temperature Pulse Rate 66 64 65 Pulse Rate [ From Monitor] Respiratory 16 16 16 Rate Blood Pressure 88/52 96/54 96/54 O2 Sat by Pulse 97 99 99 Oximetry 06/12/17 06/12/17 06/12/17 02:30 02:46 03:00 Temperature Pulse Rate 63 68 67 Pulse Rate [ From Monitor] Respiratory 16 15 16 Rate Blood Pressure 87/54 96/54 95/55 O2 Sat by Pulse 99 99 99 Oximetry 06/12/17 06/12/17 06/12/17 03:16 03:30 03:46 Temperature Pulse Rate 77 76 74 Pulse Rate [ From Monitor] Respiratory 22 21 17 Rate Blood Pressure 87/54 87/54 95/55 O2 Sat by Pulse 83 L 99 100 Oximetry 06/12/17 06/12/17 06/12/17 03:54 04:00 04:16 Temperature 98.9 F Pulse Rate 69 70 Pulse Rate [ 60 From Monitor] Respiratory 17 16 Rate Blood Pressure 95/55 100/62 O2 Sat by Pulse 100 99 Oximetry 06/12/17 06/12/17 06/12/17 04:30 04:37 04:46 Temperature Pulse Rate 70 61 68 Pulse Rate [ From Monitor] Respiratory 17 17 Rate Blood Pressure 99/61 99/61 99/61 O2 Sat by Pulse 98 100 95 Oximetry 06/12/17 06/12/17 06/12/17 05:00 05:16 05:30 Temperature Pulse Rate 66 68 68 Pulse Rate [ From Monitor] Respiratory 17 16 16 Rate Blood Pressure 101/58 101/58 82/54 O2 Sat by Pulse 99 100 100 Oximetry 06/12/17 06/12/17 06/12/17 05:46 06:00 06:16 Temperature Pulse Rate 68 69 69 Pulse Rate [ From Monitor] Respiratory 16 16 16 Rate Blood Pressure 91/59 95/57 95/57 O2 Sat by Pulse 100 100 99 Oximetry 06/12/17 06/12/17 06/12/17 06:30 06:46 07:00 Temperature Pulse Rate 70 70 70 Pulse Rate [ From Monitor] Respiratory 17 16 16 Rate Blood Pressure 80/53 83/50 79/49 O2 Sat by Pulse 99 99 100 Oximetry 06/12/17 06/12/17 06/12/17 07:16 07:30 07:46 Temperature Pulse Rate 70 70 70 Pulse Rate [ From Monitor] Respiratory 16 16 16 Rate Blood Pressure 92/60 94/54 92/60 O2 Sat by Pulse 100 100 100 Oximetry 06/12/17 06/12/17 06/12/17 08:00 08:06 08:16 Temperature 98.2 F Pulse Rate 70 70 70 Pulse Rate [ 72 From Monitor] Respiratory 16 16 Rate Blood Pressure 89/54 89/54 89/54 O2 Sat by Pulse 100 100 Oximetry 06/12/17 06/12/17 06/12/17 08:30 08:46 09:00 Temperature Pulse Rate 71 73 72 Pulse Rate [ From Monitor] Respiratory 16 15 17 Rate Blood Pressure 86/50 86/50 103/63 O2 Sat by Pulse 100 100 Oximetry 06/12/17 06/12/17 06/12/17 09:16 09:30 09:46 Temperature Pulse Rate 69 69 71 Pulse Rate [ From Monitor] Respiratory 16 16 16 Rate Blood Pressure 103/63 109/62 109/62 O2 Sat by Pulse 100 98 100 Oximetry 06/12/17 10:00 Temperature Pulse Rate 71 Pulse Rate [ From Monitor] Respiratory 16 Rate Blood Pressure 94/58 O2 Sat by Pulse 97 Oximetry - General Appearance General appearance: well-developed, well-nourished, appears stated age, intubated EENT: PERRL, mucous membranes moist Neck: no JVD, no thyromegaly, no carotid bruit, supple Respiratory: Present: Clear to Ascultation Cardiology: regular, normal heart rate Gastrointestinal: normal, normoactive bowel sounds Integumentary: no rash, other (AV fistula in her left upper arm. Good bruit until) - Lab 06/12/17 05:30 06/12/17 05:30 Most recent lab results ABG pH 7.514 pH Units (7.350-7.450) H 06/12/17 04:20 ABG pCO2 29.8 mm Hg 06/12/17 04:20 ABG pO2 209.1 mm Hg (80.0-90.0) H 06/12/17 04:20 ABG HCO3 23.4 mmol/L (20.0-26.0) 06/12/17 04:20 ABG O2 Saturation 99.3 % (95.0-99.0) H 06/12/17 04:20 Calcium 8.5 mg/dL (8.4-10.2) D 06/12/17 05:30 Phosphorus 4.50 mg/dL (2.5-4.5) 06/06/17 07:13 Magnesium 1.90 mg/dL (1.7-2.3) 06/06/17 07:13
[2017-06-12] MEDS: HEPARIN SUB-Q SCH ×2 (11:11→22:02)
[2017-06-12] MEDS: TUMS PO SCH ×3 (11:11→21:18)
[2017-06-12] MEDS: BABY ASPIRIN PO SCH (11:12)
[2017-06-12] MEDS: ROCALTROL PO SCH (11:12)
[2017-06-12] MEDS: PEPCID PO SCH (11:12)
--- NOTE | 2017-06-12 11:24 | Progress Note ---
Assessment and Plan 1. Hyperparathyroidism s/p parathyroidectomy 2. Acute respiratory failure, hypoxia/hypercapnea 3. Morbid obesity 4. ESRD 5. Laryngeal edema/stridor. Intubated 6. Acute CVA. Reviewed with neurology. Echo to manipulation with targeted PCO2 and mannitol were initiated. 7. Hypotension. Noted after dialysis. Monitor on hold Rec: Continue mechanical ventilation support with goal of PCO2 between 25 and 30 mmHg. Will continue for the next 2448 hrs. has part of bring any medical management NSS solution 250 mL bolus as needed, and keep MAP > 65, blood pressure above 90/ 60 Lactate levels if persistent Pressors if needed Mannitol once normotensive HD per nephrology Discussed with family in detail Critical care time was 31 minutes of [id number] evaluation and coordination of care Subjective Date of service: 06/12/17 Principal diagnosis: ARM/MV/Post hyperparathy./ESRD Interval history: No events overnight. Following at the bedside. Reviewed with neurology during rounds Objective Vital Signs - 12hr 06/11/17 06/11/17 06/11/17 23:30 23:46 23:47 Temperature 98.4 F Pulse Rate 62 64 Pulse Rate [ From Monitor] Respiratory 15 16 Rate Blood Pressure 89/58 89/58 O2 Sat by Pulse 100 100 Oximetry 06/11/17 06/12/17 06/12/17 23:48 00:00 00:16 Temperature Pulse Rate 64 64 65 Pulse Rate [ 66 From Monitor] Respiratory 16 16 Rate Blood Pressure 89/58 90/57 90/57 O2 Sat by Pulse 100 100 100 Oximetry 06/12/17 06/12/17 06/12/17 00:30 00:46 01:00 Temperature Pulse Rate 65 66 65 Pulse Rate [ From Monitor] Respiratory 16 16 16 Rate Blood Pressure 87/54 87/54 88/52 O2 Sat by Pulse 100 100 99 Oximetry 06/12/17 06/12/17 06/12/17 01:16 01:30 01:46 Temperature Pulse Rate 65 67 66 Pulse Rate [ From Monitor] Respiratory 16 16 16 Rate Blood Pressure 88/52 88/49 88/52 O2 Sat by Pulse 98 100 97 Oximetry 06/12/17 06/12/17 06/12/17 02:00 02:16 02:30 Temperature Pulse Rate 64 65 63 Pulse Rate [ From Monitor] Respiratory 16 16 16 Rate Blood Pressure 96/54 96/54 87/54 O2 Sat by Pulse 99 99 99 Oximetry 06/12/17 06/12/17 06/12/17 02:46 03:00 03:16 Temperature Pulse Rate 68 67 77 Pulse Rate [ From Monitor] Respiratory 15 16 22 Rate Blood Pressure 96/54 95/55 87/54 O2 Sat by Pulse 99 99 83 L Oximetry 06/12/17 06/12/17 06/12/17 03:30 03:46 03:54 Temperature 98.9 F Pulse Rate 76 74 Pulse Rate [ From Monitor] Respiratory 21 17 Rate Blood Pressure 87/54 95/55 O2 Sat by Pulse 99 100 Oximetry 06/12/17 06/12/17 06/12/17 04:00 04:16 04:30 Temperature Pulse Rate 69 70 70 Pulse Rate [ 60 From Monitor] Respiratory 17 16 17 Rate Blood Pressure 95/55 100/62 99/61 O2 Sat by Pulse 100 99 98 Oximetry 06/12/17 06/12/17 06/12/17 04:37 04:46 05:00 Temperature Pulse Rate 61 68 66 Pulse Rate [ From Monitor] Respiratory 17 17 Rate Blood Pressure 99/61 99/61 101/58 O2 Sat by Pulse 100 95 99 Oximetry 06/12/17 06/12/17 06/12/17 05:16 05:30 05:46 Temperature Pulse Rate 68 68 68 Pulse Rate [ From Monitor] Respiratory 16 16 16 Rate Blood Pressure 101/58 82/54 91/59 O2 Sat by Pulse 100 100 100 Oximetry 06/12/17 06/12/17 06/12/17 06:00 06:16 06:30 Temperature Pulse Rate 69 69 70 Pulse Rate [ From Monitor] Respiratory 16 16 17 Rate Blood Pressure 95/57 95/57 80/53 O2 Sat by Pulse 100 99 99 Oximetry 06/12/17 06/12/17 06/12/17 06:46 07:00 07:16 Temperature Pulse Rate 70 70 70 Pulse Rate [ From Monitor] Respiratory 16 16 16 Rate Blood Pressure 83/50 79/49 92/60 O2 Sat by Pulse 99 100 100 Oximetry 06/12/17 06/12/17 06/12/17 07:30 07:46 08:00 Temperature 98.2 F Pulse Rate 70 70 70 Pulse Rate [ 72 From Monitor] Respiratory 16 16 16 Rate Blood Pressure 94/54 92/60 89/54 O2 Sat by Pulse 100 100 Oximetry 06/12/17 06/12/17 06/12/17 08:06 08:16 08:30 Temperature Pulse Rate 70 70 71 Pulse Rate [ From Monitor] Respiratory 16 16 Rate Blood Pressure 89/54 89/54 86/50 O2 Sat by Pulse 100 100 Oximetry 06/12/17 06/12/17 06/12/17 08:46 09:00 09:16 Temperature Pulse Rate 73 72 69 Pulse Rate [ From Monitor] Respiratory 15 17 16 Rate Blood Pressure 86/50 103/63 103/63 O2 Sat by Pulse 100 100 100 Oximetry 06/12/17 06/12/17 06/12/17 09:30 09:46 10:00 Temperature Pulse Rate 69 71 71 Pulse Rate [ From Monitor] Respiratory 16 16 16 Rate Blood Pressure 109/62 109/62 94/58 O2 Sat by Pulse 98 100 97 Oximetry Constitutional: no acute distress, lethargic, other (intubated, some response to tactile stimulation otherwise nonresponsive) Eyes: non-icteric ENT: other (orally intubated) Neck: supple, other (no stridor) Effort: normal Ascultation: Bilateral: clear, diminished breath sounds Percussion: Bilateral: not dull Cardiovascular: regular rate and rhythm (no mrg) Gastrointestinal: normoactive bowel sounds, soft, non-tender, non-distended, other (obese) Integumentary: normal Extremities: no cyanosis, no edema, pink and warm, edema Neurologic: other (altered mentation, R-hemiparesis) Psychiatric: mood appropriate, affect normal CBC and BMP: 06/12/17 05:30 06/12/17 05:30 ABG, PT/INR, D-dimer: ABG POC ABG pH 7.556 (7.35-7.45) H 06/11/17 06:51 ABG pH 7.514 pH Units (7.350-7.450) H 06/12/17 04:20 POC ABG pCO2 34.8 (35-45) L 06/11/17 06:51 ABG pCO2 29.8 mm Hg 06/12/17 04:20 POC ABG pO2 125 (80-105) H 06/11/17 06:51 ABG pO2 209.1 mm Hg (80.0-90.0) H 06/12/17 04:20 POC ABG HCO3 30.9 06/11/17 06:51 POC ABG Total CO2 32 06/11/17 06:51 POC ABG O2 Sat 99 06/11/17 06:51 ABG O2 Saturation 99.3 % (95.0-99.0) H 06/12/17 04:20 PT/INR, D-dimer PT 13.5 Sec. (12.2-14.9) 06/09/17 16:55 INR 0.98 (0.87-1.13) 06/09/17 16:55 Abnormal lab findings: Abnormal Labs 06/04/17 06/04/17 06/04/17 00:01 12:50 13:55 WBC 11.4 H POC Hct MCV 76 L MCH 23 L RDW 18.5 H Seg Neuts % (Manual) 89.0 H Lymphocytes % (Manual) 6.0 L Monocytes % (Manual) Nucleated RBC % Seg Neutrophils # Man 10.1 H Lymphocytes # (Manual) 0.7 L Monocytes # (Manual) POC ABG pH ABG pH POC ABG pCO2 POC ABG pO2 ABG pO2 ABG O2 Saturation POC Sodium POC Potassium Sodium Potassium 5.1 H 5.2 H Chloride POC BUN BUN 48 H Creatinine 6.2 H Glucose POC Glucose Calcium Total Protein Albumin PTH Pre-Incision PTH Post-Excision 06/04/17 06/04/17 06/04/17 13:55 16:10 16:16 WBC POC Hct 37 L MCV MCH RDW Seg Neuts % (Manual) Lymphocytes % (Manual) Monocytes % (Manual) Nucleated RBC % Seg Neutrophils # Man Lymphocytes # (Manual) Monocytes # (Manual) POC ABG pH 7.306 L ABG pH POC ABG pCO2 58.7 H POC ABG pO2 338 H ABG pO2 ABG O2 Saturation POC Sodium 135 L POC Potassium 5.2 H Sodium Potassium Chloride POC BUN 44 H BUN Creatinine Glucose POC Glucose 183 H Calcium Total Protein Albumin PTH Pre-Incision 641.9 H PTH Post-Excision 154.7 H 06/04/17 06/04/17 06/04/17 16:22 20:44 21:29 WBC POC Hct MCV MCH RDW Seg Neuts % (Manual) Lymphocytes % (Manual) Monocytes % (Manual) Nucleated RBC % Seg Neutrophils # Man Lymphocytes # (Manual) Monocytes # (Manual) POC ABG pH 7.484 H ABG pH POC ABG pCO2 POC ABG pO2 ABG pO2 ABG O2 Saturation POC Sodium 137 L POC Potassium 5.3 H Sodium Potassium 5.2 H Chloride POC BUN 45 H BUN 51 H Creatinine 6.5 H Glucose 119 H POC Glucose 176 H Calcium Total Protein Albumin PTH Pre-Incision PTH Post-Excision 06/05/17 06/05/17 06/05/17 03:31 11:44 11:44 WBC 13.4 H POC Hct MCV 75 L MCH 23 L RDW 18.2 H Seg Neuts % (Manual) Lymphocytes % (Manual) Monocytes % (Manual) Nucleated RBC % Seg Neutrophils # Man Lymphocytes # (Manual) Monocytes # (Manual) POC ABG pH ABG pH POC ABG pCO2 POC ABG pO2 75 L ABG pO2 ABG O2 Saturation POC Sodium POC Potassium Sodium Potassium 5.8 H Chloride POC BUN BUN 56 H Creatinine 7.0 H Glucose 111 H POC Glucose Calcium 8.2 L Total Protein 6.2 L Albumin 3.1 L PTH Pre-Incision PTH Post-Excision 06/06/17 06/06/17 06/07/17 05:07 07:13 03:53 WBC POC Hct MCV MCH RDW Seg Neuts % (Manual) Lymphocytes % (Manual) Monocytes % (Manual) Nucleated RBC % Seg Neutrophils # Man Lymphocytes # (Manual) Monocytes # (Manual) POC ABG pH ABG pH POC ABG pCO2 POC ABG pO2 116 H 137 H ABG pO2 ABG O2 Saturation POC Sodium POC Potassium Sodium Potassium Chloride POC BUN BUN 32 H Creatinine 4.9 H Glucose 115 H POC Glucose Calcium 7.9 L Total Protein 5.7 L Albumin 3.3 L PTH Pre-Incision PTH Post-Excision 06/07/17 06/07/17 06/07/17 05:21 05:21 16:54 WBC POC Hct MCV 75 L MCH 24 L RDW 18.7 H Seg Neuts % (Manual) Lymphocytes % (Manual) Monocytes % (Manual) Nucleated RBC % Seg Neutrophils # Man Lymphocytes # (Manual) Monocytes # (Manual) POC ABG pH ABG pH POC ABG pCO2 POC ABG pO2 ABG pO2 ABG O2 Saturation POC Sodium POC Potassium Sodium Potassium 5.4 H Chloride POC BUN BUN 52 H Creatinine 6.2 H Glucose 107 H POC Glucose 110 H Calcium 8.0 L Total Protein Albumin PTH Pre-Incision PTH Post-Excision 06/07/17 06/07/17 06/08/17 17:38 23:32 04:00 WBC POC Hct MCV 77 L MCH 23 L RDW 18.3 H Seg Neuts % (Manual) 78.0 H Lymphocytes % (Manual) Monocytes % (Manual) Nucleated RBC % 3.0 H Seg Neutrophils # Man 7.8 H Lymphocytes # (Manual) Monocytes # (Manual) POC ABG pH 7.310 L ABG pH POC ABG pCO2 51.9 H POC ABG pO2 ABG pO2 ABG O2 Saturation POC Sodium POC Potassium Sodium Potassium Chloride POC BUN BUN Creatinine Glucose POC Glucose 63 L Calcium Total Protein Albumin PTH Pre-Incision PTH Post-Excision 06/08/17 06/08/17 06/08/17 04:00 10:51 11:25 WBC POC Hct MCV MCH RDW Seg Neuts % (Manual) Lymphocytes % (Manual) Monocytes % (Manual) Nucleated RBC % Seg Neutrophils # Man Lymphocytes # (Manual) Monocytes # (Manual) POC ABG pH 7.336 L ABG pH POC ABG pCO2 55.1 H POC ABG pO2 ABG pO2 ABG O2 Saturation POC Sodium POC Potassium Sodium Potassium Chloride 96.9 L POC BUN BUN 29 H Creatinine 4.6 H Glucose POC Glucose 108 H Calcium 8.3 L Total Protein Albumin PTH Pre-Incision PTH Post-Excision 06/08/17 06/09/17 06/09/17 14:22 11:42 11:42 WBC POC Hct MCV 76 L MCH 24 L RDW 18.3 H Seg Neuts % (Manual) 80.0 H Lymphocytes % (Manual) 10.0 L Monocytes % (Manual) Nucleated RBC % 2.0 H Seg Neutrophils # Man Lymphocytes # (Manual) 1.0 L Monocytes # (Manual) POC ABG pH ABG pH POC ABG pCO2 52.8 H POC ABG pO2 77 L ABG pO2 ABG O2 Saturation POC Sodium POC Potassium Sodium Potassium 5.4 H D Chloride 97.1 L POC BUN BUN 58 H Creatinine 6.6 H Glucose POC Glucose Calcium 7.2 L Total Protein Albumin PTH Pre-Incision PTH Post-Excision 06/09/17 06/10/17 06/10/17 12:04 03:29 03:29 WBC 13.7 H POC Hct MCV 77 L MCH 24 L RDW 17.9 H Seg Neuts % (Manual) 82.0 H Lymphocytes % (Manual) 7.0 L Monocytes % (Manual) Nucleated RBC % 6.0 H Seg Neutrophils # Man 11.2 H Lymphocytes # (Manual) 1.0 L Monocytes # (Manual) POC ABG pH ABG pH POC ABG pCO2 POC ABG pO2 ABG pO2 ABG O2 Saturation POC Sodium POC Potassium Sodium Potassium Chloride 94.2 L POC BUN BUN 32 H Creatinine 4.6 H Glucose 106 H POC Glucose 106 H Calcium 8.0 L Total Protein Albumin PTH Pre-Incision PTH Post-Excision 06/10/17 06/11/17 06/11/17 05:27 06:00 06:00 WBC 11.8 H POC Hct MCV 77 L MCH 24 L RDW 18.3 H Seg Neuts % (Manual) 88.0 H Lymphocytes % (Manual) 7.0 L Monocytes % (Manual) Nucleated RBC % 1.0 H Seg Neutrophils # Man 10.4 H Lymphocytes # (Manual) 0.8 L Monocytes # (Manual) POC ABG pH ABG pH POC ABG pCO2 POC ABG pO2 ABG pO2 ABG O2 Saturation POC Sodium POC Potassium Sodium Potassium Chloride POC BUN BUN 53 H Creatinine 6.0 H Glucose POC Glucose 106 H Calcium 6.3 L D Total Protein Albumin PTH Pre-Incision PTH Post-Excision 06/11/17 06/11/17 06/11/17 06:51 12:10 16:54 WBC POC Hct MCV MCH RDW Seg Neuts % (Manual) Lymphocytes % (Manual) Monocytes % (Manual) Nucleated RBC % Seg Neutrophils # Man Lymphocytes # (Manual) Monocytes # (Manual) POC ABG pH 7.556 H ABG pH POC ABG pCO2 34.8 L POC ABG pO2 125 H ABG pO2 ABG O2 Saturation POC Sodium POC Potassium Sodium Potassium Chloride POC BUN BUN Creatinine Glucose POC Glucose 115 H 106 H Calcium Total Protein Albumin PTH Pre-Incision PTH Post-Excision 06/11/17 06/12/17 06/12/17 20:20 00:06 04:20 WBC POC Hct MCV MCH RDW Seg Neuts % (Manual) Lymphocytes % (Manual) Monocytes % (Manual) Nucleated RBC % Seg Neutrophils # Man Lymphocytes # (Manual) Monocytes # (Manual) POC ABG pH ABG pH 7.512 H 7.514 H POC ABG pCO2 POC ABG pO2 ABG pO2 148.5 H 209.1 H ABG O2 Saturation 99.3 H POC Sodium POC Potassium Sodium Potassium Chloride POC BUN BUN Creatinine Glucose POC Glucose 108 H Calcium Total Protein Albumin PTH Pre-Incision PTH Post-Excision 06/12/17 06/12/17 06/12/17 05:24 05:30 05:30 WBC 14.3 H POC Hct MCV 75 L MCH 24 L RDW 18.5 H Seg Neuts % (Manual) 73.0 H Lymphocytes % (Manual) 6.0 L Monocytes % (Manual) 9.0 H Nucleated RBC % 1.0 H Seg Neutrophils # Man 10.4 H Lymphocytes # (Manual) 0.9 L Monocytes # (Manual) 1.3 H POC ABG pH ABG pH POC ABG pCO2 POC ABG pO2 ABG pO2 ABG O2 Saturation POC Sodium POC Potassium Sodium 131 L D Potassium Chloride 90.6 L POC BUN BUN 51 H Creatinine 6.5 H Glucose POC Glucose 109 H Calcium Total Protein Albumin PTH Pre-Incision PTH Post-Excision Chest x-ray: report reviewed, image reviewed
--- NOTE | 2017-06-12 12:14 | Consultation ---
History of Present Illness - Reason for Consult Consult date: 06/12/17 stroke - History of Present Illness went over care plan with family she is more alert and moves better at this point on the left side explained to the family the issue of dialysis and mannitol discussed the management of ICP issues with Toi.... no bleed on the CT Past History Past Medical History: cancer (breast), dialysis, ESRD, hypertension, renal failure, other (hyperparathyroidism; MELVI) Past Surgical History: mastectomy, Other (Parathyroidectomy) Social history: single. denies: smoking, alcohol abuse, prescription drug abuse , IV drug use Family history: hypertension Medications and Allergies Allergies Allergy/AdvReac Type Severity Reaction Status Date / Time No Known Allergies Allergy Verified 06/01/17 16:40 Home Medications Medication Instructions Recorded Confirmed Last Taken Type Aspirin [Adult Low Dose Aspirin EC] 81 mg PO DAILY 06/01/17 06/04/17 06/02/17 History Cinacalcet HCl [Sensipar] 180 mg PO DAILY 06/01/17 06/01/17 06/03/17 History Furosemide [Lasix TAB] 80 mg PO QDAY 06/01/17 06/01/17 Unknown History Losartan [Cozaar] 100 mg PO QDAY 06/01/17 06/01/17 06/04/17 07:00 History Metoprolol [Lopressor TAB] 50 mg PO BID 06/01/17 06/01/17 06/04/17 07:00 History Sevelamer Carbonate [Renvela] 1,600 mg PO TIDWM 06/01/17 06/01/17 06/03/17 History Active Meds: Active Medications Lipase/Protease/Amylase (Joaquin Stallworth 10,500 Unit) 1 each FEEDTUBE PRN PRN PRN Reason: For Clogged Feeding Tube Aspirin (Baby Aspirin) 81 mg PO QDAY [facility] Last Admin: 06/12/17 11:12 Dose: 81 mg Atorvastatin Calcium (Lipitor) 40 mg PO QHS [facility] Last Admin: 06/11/17 21:59 Dose: 40 mg Bisacodyl (Dulcolax) [address] QDAY PRN PRN Reason: constipation unrelieved by MOM Calcitriol (Rocaltrol) 0.5 mcg PO QDAY [facility] Last Admin: 06/12/17 11:12 Dose: 0.5 mcg Calcium Carbonate/Glycine (Tums) 1,000 mg PO TID [facility] Last Admin: 06/12/17 11:11 Dose: 1,000 mg Epoetin Riccardo (Procrit) 10,000 unit IV KAYLA PRN PRN Reason: hemodialysis Last Admin: 06/07/17 18:39 Dose: 10,000 unit Famotidine (Pepcid) 20 mg PO DAILY [facility] Last Admin: 06/12/17 11:12 Dose: 20 mg Heparin Sodium (Porcine) (Heparin) 5,000 unit SUB-Q Q12HR [facility] Last Admin: 06/12/17 11:11 Dose: 5,000 unit Hydralazine HCl (Apresoline) 5 mg IV Q6HR PRN PRN Reason: SBP>160 Last Admin: 06/11/17 12:42 Dose: 5 mg Hydrophilic Ointment (Vaseline Lip Therapy) 1 applic TP Q2HR PRN PRN Reason: Dry Lips Last Admin: 06/05/17 17:46 Dose: 1 applic Sodium Chloride (Nacl 0.9%) 100 mls @ 999 mls/hr IV KAYLA PRN PRN Reason: Hypotension Fentanyl Citrate (Fentanyl Drip Premix) 2,000 mcg in 100 mls @ 6.124 mls/hr IV TITR JANE; 1 MCG/KG/HR PRN Reason: Protocol Mannitol 31 gm/ Miscellaneous (Information) 156 mls @ 156 mls/hr IV Q6H [facility] Last Admin: 06/12/17 11:02 Dose: Not Given Multi-Ingred Cream/Lotion/Oil/Oint (Artificial Tears Ophth Oint) 1 applic OU Q4HR PRN PRN Reason: Dry Eye(s) Multi-Ingred Cream/Lotion/Oil/Oint (Artificial Tears Ophth Oint) 1 applic OU Q4HR PRN PRN Reason: Dry Eye(s) Simple Syrup (Simple Syrup) 15 ml FEEDTUBE PRN PRN PRN Reason: Hypoglycemia Simple Syrup (Simple Syrup) 30 ml FEEDTUBE PRN PRN PRN Reason: Hypoglycemia Sodium Bicarbonate (Sodium Bicarbonate) 325 mg FEEDTUBE PRN PRN PRN Reason: For Clogged Feeding Tube Sodium Chloride (Nacl 0.9% 500 Ml) 1 ml IV DIRECT [facility] Exam - Constitutional Vitals: Temp Pulse Resp BP Pulse Ox 98.2 F 70 21 92/52 100 06/12/17 08:00 06/12/17 11:54 06/12/17 11:16 06/12/17 11:54 06/12/17 11:54 Results - Labs CBC & Chem 7: 06/12/17 05:30 06/12/17 05:30 Labs: Abnormal lab results 06/11/17 06/11/17 06/11/17 Range/Units 12:10 16:54 20:20 WBC (4.5-11.0) K/mm3 MCV (79-97) fl MCH (28-32) pg RDW (13.2-15.2) % Seg Neuts % (Manual) (40.0-70.0) % Lymphocytes % (Manual) (13.4-35.0) % Monocytes % (Manual) (0.0-7.3) % Nucleated RBC % (0.0-0.9) % Seg Neutrophils # Man (1.8-7.7) K/mm3 Lymphocytes # (Manual) (1.2-5.4) K/mm3 Monocytes # (Manual) (0.0-0.8) K/mm3 ABG pH 7.512 H (7.350-7.450) pH Units ABG pO2 148.5 H (80.0-90.0) mm Hg ABG O2 Saturation (95.0-99.0) % Sodium (137-145) mmol/L Chloride (98-107) mmol/L BUN (7-17) mg/dL Creatinine (0.7-1.2) mg/dL POC Glucose 115 H 106 H (70-105) 06/12/17 06/12/17 06/12/17 Range/Units 00:06 04:20 05:24 WBC (4.5-11.0) K/mm3 MCV (79-97) fl MCH (28-32) pg RDW (13.2-15.2) % Seg Neuts % (Manual) (40.0-70.0) % Lymphocytes % (Manual) (13.4-35.0) % Monocytes % (Manual) (0.0-7.3) % Nucleated RBC % (0.0-0.9) % Seg Neutrophils # Man (1.8-7.7) K/mm3 Lymphocytes # (Manual) (1.2-5.4) K/mm3 Monocytes # (Manual) (0.0-0.8) K/mm3 ABG pH 7.514 H (7.350-7.450) pH Units ABG pO2 209.1 H (80.0-90.0) mm Hg ABG O2 Saturation 99.3 H (95.0-99.0) % Sodium (137-145) mmol/L Chloride (98-107) mmol/L BUN (7-17) mg/dL Creatinine (0.7-1.2) mg/dL POC Glucose 108 H 109 H (70-105) 06/12/17 06/12/17 Range/Units 05:30 05:30 WBC 14.3 H (4.5-11.0) K/mm3 MCV 75 L (79-97) fl MCH 24 L (28-32) pg RDW 18.5 H (13.2-15.2) % Seg Neuts % (Manual) 73.0 H (40.0-70.0) % Lymphocytes % (Manual) 6.0 L (13.4-35.0) % Monocytes % (Manual) 9.0 H (0.0-7.3) % Nucleated RBC % 1.0 H (0.0-0.9) % Seg Neutrophils # Man 10.4 H (1.8-7.7) K/mm3 Lymphocytes # (Manual) 0.9 L (1.2-5.4) K/mm3 Monocytes # (Manual) 1.3 H (0.0-0.8) K/mm3 ABG pH (7.350-7.450) pH Units ABG pO2 (80.0-90.0) mm Hg ABG O2 Saturation (95.0-99.0) % Sodium 131 L D (137-145) mmol/L Chloride 90.6 L (98-107) mmol/L BUN 51 H (7-17) mg/dL Creatinine 6.5 H (0.7-1.2) mg/dL POC Glucose (70-105)
[2017-06-12] MEDS ORDERED: NACL 0.9% 250ML 250 ML IV ONE (12:30)
--- NOTE | 2017-06-12 14:23 | Progress Note ---
Assessment and Plan Assessment and plan: 66-year-old female patient significant past medical history of hypertension and obstructive sleep apnea, ESRD on hemodialysis, breast cancer status post mastectomy underwent elective total parathyroidectomy and was admitted to ICU with respiratory failure requiring intubation, she unfortunately a stroke Acute left MCA stroke with right-sided weakness - Neurology consult appreciated -MR brain showed large left MCA acute infarct - on aspirin and statin - Cardiology consulted to rule out cardiac cause of stroke - Vascular surgery consulted no intervention needed - NO heparin GTT for the thrombus because of risk of hemorrhagic transformation -neuro input appreciated, trying mannitol to decrease IC edema Acute hypoxic respiratory failure on MV - re-intubated, continue vent and continue to attempt to wean as tolerated Metabolic Enchephalopathy -due to CVA and IC edema, imrpoving -continue mannitol Status post subtotal parathyroidectomy/Hypocalcemia - Continue postop care per surgery - continue to replete calcium as needed End-stage renal disease on hemodialysis - Continue hemodialysis as scheduled per nephrology Hyperkalemia -improved with HD Hypertension - Continue When necessary medication History of breast cancer status post mastectomy - Stable Morbid obesity with BMI of 47.8, - Nutrition input appreciated Moderate malnutrition -continue tube feeds Hyponatremia -reduce free water via G tube, should correct with HD The high probability of a clinically significant, sudden or life threatening deterioration of the [respiratory] system(s) required my full and direct attention, intervention and personal management. The aggregate critical care time was [32] minutes. This time is in addition to time spent performing reported procedures but includes the following: [x] Data Review and interpretation [x] Patient assessment and monitoring of vital signs [x] Documentation [x] Medication orders and managementPatient would benefit by outpatient bariatric surgical evaluation for weight reduction program and medically stable CODE STATUS FULL History Interval history: Mentation is somewhat improved, she is more responsive today but nonverbal she was re-intubated yesterday Hospitalist Physical - Physical exam Narrative exam: General.: Appears well, no distress, nontoxic HEENT: Moist mucous membranes, extraocular muscles intact, no lymphadenopathy Neck: supple Cardiac: S1-S2 heard Lungs: clear to auscultation bilaterally Abdomen: soft , nontender, nondistended, bowel sounds positive Extremities: no edema clubbing or cyanosis Skin: no rash or lesions Neurologic: Intubated, Patient is only moving left side of her body responds to painful stimuli, right side is not moving.only moans in response when spoken to , non verbal, does not obey commands Psych: appropriate behavior, appropriate mood, corporative, judgment intact - Constitutional Vitals: Temp Pulse Resp BP Pulse Ox 98.4 F 69 18 93/52 99 06/12/17 12:00 06/12/17 13:00 06/12/17 13:00 06/12/17 13:00 06/12/17 13:00 General appearance: Present: no acute distress, other (withdrawn, nonverbal) Results - Labs CBC & Chem 7: 06/14/17 04:30 06/14/17 04:30 Labs: Laboratory Last Values WBC 14.3 K/mm3 (4.5-11.0) H 06/12/17 05:30 RBC 4.73 M/mm3 (3.65-5.03) 06/12/17 05:30 Hgb 11.3 gm/dl (10.1-14.3) 06/12/17 05:30 POC Hgb 14.3 (12-17) 06/04/17 16:22 Hct 35.6 % (30.3-42.9) 06/12/17 05:30 POC Hct 42 (38-51) 06/04/17 16:22 MCV 75 fl (79-97) L 06/12/17 05:30 MCH 24 pg (28-32) L 06/12/17 05:30 MCHC 32 % (30-34) 06/12/17 05:30 RDW 18.5 % (13.2-15.2) H 06/12/17 05:30 Plt Count 218 K/mm3 (140-440) 06/12/17 05:30 Add Manual Diff Complete 06/12/17 05:30 Total Counted 100 06/12/17 05:30 Seg Neutrophils % Special Events Planner 06/04/17 00:01 Seg Neuts % (Manual) 73.0 % (40.0-70.0) H 06/12/17 05:30 Band Neutrophils % 7.0 % 06/12/17 05:30 Lymphocytes % (Manual) 6.0 % (13.4-35.0) L 06/12/17 05:30 Reactive Lymphs % (Man) 0 % 06/12/17 05:30 Monocytes % (Manual) 9.0 % (0.0-7.3) H 06/12/17 05:30 Eosinophils % (Manual) 1.0 % (0.0-4.3) 06/12/17 05:30 Basophils % (Manual) 0 % (0.0-1.8) 06/12/17 05:30 Metamyelocytes % 3.0 % 06/12/17 05:30 Myelocytes % 1.0 % 06/12/17 05:30 Promyelocytes % 0 % 06/12/17 05:30 Blast Cells % 0 % 06/12/17 05:30 Nucleated RBC % 1.0 % (0.0-0.9) H 06/12/17 05:30 Seg Neutrophils # Man 10.4 K/mm3 (1.8-7.7) H 06/12/17 05:30 Band Neutrophils # 1.0 K/mm3 06/12/17 05:30 Lymphocytes # (Manual) 0.9 K/mm3 (1.2-5.4) L 06/12/17 05:30 Abs React Lymphs (Man) 0.0 K/mm3 06/12/17 05:30 Monocytes # (Manual) 1.3 K/mm3 (0.0-0.8) H 06/12/17 05:30 Eosinophils # (Manual) 0.1 K/mm3 (0.0-0.4) 06/12/17 05:30 Basophils # (Manual) 0.0 K/mm3 (0.0-0.1) 06/12/17 05:30 Metamyelocytes # 0.4 K/mm3 06/12/17 05:30 Myelocytes # 0.1 K/mm3 06/12/17 05:30 Promyelocytes # 0.0 K/mm3 06/12/17 05:30 Blast Cells # 0.0 K/mm3 06/12/17 05:30 WBC Morphology Not Reportable 06/12/17 05:30 Hypersegmented Neuts Not Reportable 06/12/17 05:30 Hyposegmented Neuts Not Reportable 06/12/17 05:30 Hypogranular Neuts Not Reportable 06/12/17 05:30 Smudge Cells Not Reportable 06/12/17 05:30 Toxic Granulation Not Reportable 06/12/17 05:30 Toxic Vacuolation Not Reportable 06/12/17 05:30 Dohle Bodies Not Reportable 06/12/17 05:30 Pelger-Huet Anomaly Not Reportable 06/12/17 05:30 Sunita Rods Not Reportable 06/12/17 05:30 Platelet Estimate Not Reportable 06/12/17 05:30 Clumped Platelets Not Reportable 06/12/17 05:30 Plt Clumps, EDTA Not Reportable 06/12/17 05:30 Large Platelets Not Reportable 06/12/17 05:30 Giant Platelets Not Reportable 06/12/17 05:30 Platelet Satelliting Not Reportable 06/12/17 05:30 Plt Morphology Comment Not Reportable 06/12/17 05:30 RBC Morphology Not Reportable 06/12/17 05:30 Dimorphic RBCs Not Reportable 06/12/17 05:30 Polychromasia Few 06/12/17 05:30 Hypochromasia 1+ 06/12/17 05:30 Poikilocytosis Few 06/12/17 05:30 Anisocytosis 1+ 06/12/17 05:30 Microcytosis Not Reportable 06/12/17 05:30 Macrocytosis Not Reportable 06/12/17 05:30 Spherocytes Not Reportable 06/12/17 05:30 Pappenheimer Bodies Not Reportable 06/12/17 05:30 Sickle Cells Not Reportable 06/12/17 05:30 Target Cells Not Reportable 06/12/17 05:30 Tear Drop Cells Not Reportable 06/12/17 05:30 Ovalocytes Not Reportable 06/12/17 05:30 Helmet Cells Not Reportable 06/12/17 05:30 Ramos-[place] Bodies Not Reportable 06/12/17 05:30 [place] Rings Not Reportable 06/12/17 05:30 Donaldo Cells Not Reportable 06/12/17 05:30 Bite Cells Not Reportable 06/12/17 05:30 Crenated Cell Not Reportable 06/12/17 05:30 Elliptocytes Not Reportable 06/12/17 05:30 Acanthocytes (Spur) Not Reportable 06/12/17 05:30 Rouleaux Not Reportable 06/12/17 05:30 Hemoglobin C Crystals Not Reportable 06/12/17 05:30 Schistocytes Not Reportable 06/12/17 05:30 Malaria parasites Not Reportable 06/12/17 05:30 Williams Bodies Not Reportable 06/12/17 05:30 Hem Pathologist Commnt No 06/12/17 05:30 PT 13.5 Sec. (12.2-14.9) 06/09/17 16:55 INR 0.98 (0.87-1.13) 06/09/17 16:55 APTT 29.9 Sec. (24.2-36.6) 06/09/17 16:55 POC ABG pH 7.556 (7.35-7.45) H 06/11/17 06:51 ABG pH 7.514 pH Units (7.350-7.450) H 06/12/17 04:20 POC ABG pCO2 34.8 (35-45) L 06/11/17 06:51 ABG pCO2 29.8 mm Hg 06/12/17 04:20 POC ABG pO2 125 (80-105) H 06/11/17 06:51 ABG pO2 209.1 mm Hg (80.0-90.0) H 06/12/17 04:20 POC ABG HCO3 30.9 06/11/17 06:51 ABG HCO3 23.4 mmol/L (20.0-26.0) 06/12/17 04:20 POC ABG Total CO2 32 06/11/17 06:51 POC ABG O2 Sat 99 06/11/17 06:51 ABG O2 Saturation 99.3 % (95.0-99.0) H 06/12/17 04:20 ABG O2 Content 17.2 (0.0-44) 06/12/17 04:20 POC ABG Base Excess 9 06/11/17 06:51 ABG Base Excess 1.2 mmol/L (-2.0-3.0) 06/12/17 04:20 ABG Hemoglobin 12.2 gm/dl (12.0-16.0) 06/12/17 04:20 ABG Carboxyhemoglobin 1.5 % (0.0-5.0) 06/12/17 04:20 ABG Methemoglobin 0.4 % (0.0-1.5) 06/12/17 04:20 Oxyhemoglobin 97.5 % (95.0-99.0) 06/12/17 04:20 POC Sodium 137 mmol/L (138-146) L 06/04/17 16:22 POC Potassium 5.3 (3.5-4.9) H 06/04/17 16:22 POC Chloride 102 (98-109) 06/04/17 16:22 FiO2 40 % 06/12/17 04:20 Sodium 131 mmol/L (137-145) L D 06/12/17 05:30 Potassium 4.2 mmol/L (3.6-5.0) 06/12/17 05:30 Chloride 90.6 mmol/L (98-107) L 06/12/17 05:30 Carbon Dioxide 24 mmol/L (22-30) 06/12/17 05:30 Anion Gap 21 mmol/L 06/12/17 05:30 POC BUN 45 mg/dl (8-26) H 06/04/17 16:22 BUN 51 mg/dL (7-17) H 06/12/17 05:30 Creatinine 6.5 mg/dL (0.7-1.2) H 06/12/17 05:30 Estimated GFR 8 ml/min 06/12/17 05:30 BUN/Creatinine Ratio 8 % 06/12/17 05:30 Glucose 99 mg/dL (65-100) 06/12/17 05:30 POC Glucose 116 (70-105) H 06/12/17 11:46 Osmolality 316 Mosm/kg 06/12/17 07:30 Calcium 8.5 mg/dL (8.4-10.2) D 06/12/17 05:30 Phosphorus 4.50 mg/dL (2.5-4.5) 06/06/17 07:13 Magnesium 1.90 mg/dL (1.7-2.3) 06/06/17 07:13 Total Bilirubin 0.20 mg/dL (0.1-1.2) 06/06/17 07:13 AST 14 units/L (5-40) 06/06/17 07:13 ALT 15 units/L (7-56) 06/06/17 07:13 Alkaline Phosphatase 79 units/L (35-129) 06/06/17 07:13 Total Protein 5.7 g/dL (6.3-8.2) L 06/06/17 07:13 Albumin 3.3 g/dL (3.9-5) L 06/06/17 07:13 Albumin/Globulin Ratio 1.4 % 06/06/17 07:13 Triglycerides 132 mg/dL (2-149) 06/09/17 11:49 Cholesterol 171 mg/dL (50-199) 06/09/17 11:49 LDL Cholesterol Direct 95 mg/dL (50-130) 06/09/17 11:49 HDL Cholesterol 50 mg/dL (40-59) 06/09/17 11:49 Cholesterol/HDL Ratio 3.42 % 06/09/17 11:49 PTH Pre-Incision 641.9 (11.1-79.5) H 06/04/17 13:55 PTH Post-Excision 154.7 (11.1-79.5) H 06/04/17 13:55 PTH Intact Intraop 5 m Not Reportable 06/04/17 13:55 - Imaging and Cardiology Chest x-ray: image reviewed (no acute findings)
[2017-06-13] MEDS: OSMITROL IV SCH ×4 (04:08→22:55)
[2017-06-13] MEDS: VIAFLEX EMPTY CONTAINER IV SCH ×4 (04:08→22:55)
[2017-06-13] MEDS ORDERED: OSMITROL IV SCH (05:00)
[2017-06-13] MEDS ORDERED: VIAFLEX EMPTY CONTAINER IV SCH (05:00)
[2017-06-13 05:19] LABS: Hematocrit 33.1 % (30.3-42.9); Hemoglobin 10.5 gm/dl (10.1-14.3); Mean Corpuscular HGB Conc 32 % (30-34); Mean Corpuscular Volume 75 fl (79-97); Platelet Count 200 K/mm3 (140-440); Red Blood Count 4.42 M/mm3 (3.65-5.03); Red Cell Distribution Width 18.5 % (13.2-15.2); White Blood Count 17.9 K/mm3 (4.5-11.0)
[2017-06-13 05:21] LABS: Mean Corpuscular Hemoglobin 24 pg (28-32)
[2017-06-13 05:43] LABS: Calcium 8.1 mg/dL (8.4-10.2); Chloride 88.9 mmol/L (98-107); Potassium 4.5 mmol/L (3.6-5.0)
[2017-06-13 06:10] LABS: ABG Base Excess 0.7 mmol/L (-2.0-3.0); ABG Oxygen Saturation 98.5 % (95.0-99.0); ABG PCO2 44.8 mm Hg; ABG PH 7.382 pH Units (7.350-7.450)
[2017-06-13 06:43] LABS: Anisocytosis 1+; Blastocytes % (Manual) 0 %
[2017-06-13 06:44] LABS: Diff Status Complete; Hypochromasia 1+; Platelet Estimate Consistent w Auto; Polychromasia Rare; Schistocytes Rare
--- NOTE | 2017-06-13 09:28 | XRay Report ---
AP CHEST: HISTORY: Followup respiratory failure Lines and support devices remain in good position. Cardiomegaly, pulmonary venous congestion and left lower lobe opacity are unchanged since yesterday's exam. No new acute process. IMPRESSION: No change.
[2017-06-13] MEDS: BABY ASPIRIN PO SCH (09:39)
[2017-06-13] MEDS: TUMS PO SCH ×3 (09:39→20:52)
[2017-06-13] MEDS: ROCALTROL PO SCH (09:39)
[2017-06-13] MEDS: PEPCID PO SCH (09:39)
[2017-06-13] MEDS: HEPARIN SUB-Q SCH ×2 (09:40→22:52)
--- NOTE | 2017-06-13 10:18 | Progress Note ---
Assessment and Plan Assessment and plan: 66-year-old female patient significant past medical history of hypertension and obstructive sleep apnea, ESRD on hemodialysis, breast cancer status post mastectomy underwent elective total parathyroidectomy and was admitted to ICU with respiratory failure requiring intubation, she unfortunately a stroke Acute left MCA stroke with right-sided weakness - Neurology consult appreciated -MR brain showed large left MCA acute infarct - on aspirin and statin - Cardiology consulted to rule out cardiac cause of stroke - Vascular surgery consulted no intervention needed - NO heparin GTT for the thrombus because of risk of hemorrhagic transformation -neuro input appreciated, trying mannitol to decrease IC edema Acute hypoxic respiratory failure on MV - re-intubated, continue vent and continue to attempt to wean as tolerated Metabolic Enchephalopathy -due to CVA and IC edema, imrpoving -continue mannitol Status post subtotal parathyroidectomy/Hypocalcemia - Continue postop care per surgery - continue to replete calcium as needed End-stage renal disease on hemodialysis - Continue hemodialysis as scheduled per nephrology Hyperkalemia -improved with HD Hypertension - Continue When necessary medication History of breast cancer status post mastectomy - Stable Morbid obesity with BMI of 47.8, - Nutrition input appreciated Moderate malnutrition -continue tube feeds Hyponatremia -reduce free water via G tube, should correct with HD The high probability of a clinically significant, sudden or life threatening deterioration of the [respiratory] system(s) required my full and direct attention, intervention and personal management. The aggregate critical care time was [32] minutes. This time is in addition to time spent performing reported procedures but includes the following: [x] Data Review and interpretation [x] Patient assessment and monitoring of vital signs [x] Documentation [x] Medication orders and managementPatient would benefit by outpatient bariatric surgical evaluation for weight reduction program and medically stable CODE STATUS FULL History Interval history: Mentation is somewhat improved, she is more responsive today but nonverbal remains intubated Hospitalist Physical - Physical exam Narrative exam: General.: Appears well, no distress, nontoxic HEENT: Moist mucous membranes, extraocular muscles intact, no lymphadenopathy Neck: supple Cardiac: S1-S2 heard Lungs: clear to auscultation bilaterally Abdomen: soft , nontender, nondistended, bowel sounds positive Extremities: no edema clubbing or cyanosis Skin: no rash or lesions Neurologic: Intubated, Patient is only moving left side of her body responds to painful stimuli, right side is not moving. does not obey commands Psych: appropriate behavior, appropriate mood, corporative, judgment intact - Constitutional Vitals: Temp Pulse Resp BP Pulse Ox 98.5 F 65 20 91/53 98 06/13/17 08:00 06/13/17 10:00 06/13/17 10:00 06/13/17 10:00 06/13/17 10:00 General appearance: Present: no acute distress, other (withdrawn, nonverbal) Results - Labs CBC & Chem 7: 06/14/17 04:30 06/14/17 04:30 Labs: Laboratory Last Values WBC 17.9 K/mm3 (4.5-11.0) H 06/13/17 04:55 RBC 4.42 M/mm3 (3.65-5.03) 06/13/17 04:55 Hgb 10.5 gm/dl (10.1-14.3) 06/13/17 04:55 POC Hgb 14.3 (12-17) 06/04/17 16:22 Hct 33.1 % (30.3-42.9) 06/13/17 04:55 POC Hct 42 (38-51) 06/04/17 16:22 MCV 75 fl (79-97) L 06/13/17 04:55 MCH 24 pg (28-32) L 06/13/17 04:55 MCHC 32 % (30-34) 06/13/17 04:55 RDW 18.5 % (13.2-15.2) H 06/13/17 04:55 Plt Count 200 K/mm3 (140-440) 06/13/17 04:55 Add Manual Diff Complete 06/13/17 04:55 Total Counted 100 06/13/17 04:55 Seg Neutrophils % Repairer Veneer Sheet 06/04/17 00:01 Seg Neuts % (Manual) 75.0 % (40.0-70.0) H 06/13/17 04:55 Band Neutrophils % 5.0 % 06/13/17 04:55 Lymphocytes % (Manual) 6.0 % (13.4-35.0) L 06/13/17 04:55 Reactive Lymphs % (Man) 0 % 06/13/17 04:55 Monocytes % (Manual) 9.0 % (0.0-7.3) H 06/13/17 04:55 Eosinophils % (Manual) 3.0 % (0.0-4.3) 06/13/17 04:55 Basophils % (Manual) 1.0 % (0.0-1.8) 06/13/17 04:55 Metamyelocytes % 1.0 % 06/13/17 04:55 Myelocytes % 0 % 06/13/17 04:55 Promyelocytes % 0 % 06/13/17 04:55 Blast Cells % 0 % 06/13/17 04:55 Nucleated RBC % Not Reportable 06/13/17 04:55 Seg Neutrophils # Man 13.4 K/mm3 (1.8-7.7) H 06/13/17 04:55 Band Neutrophils # 0.9 K/mm3 06/13/17 04:55 Lymphocytes # (Manual) 1.1 K/mm3 (1.2-5.4) L 06/13/17 04:55 Abs React Lymphs (Man) 0.0 K/mm3 06/13/17 04:55 Monocytes # (Manual) 1.6 K/mm3 (0.0-0.8) H 06/13/17 04:55 Eosinophils # (Manual) 0.5 K/mm3 (0.0-0.4) H 06/13/17 04:55 Basophils # (Manual) 0.2 K/mm3 (0.0-0.1) H 06/13/17 04:55 Metamyelocytes # 0.2 K/mm3 06/13/17 04:55 Myelocytes # 0.0 K/mm3 06/13/17 04:55 Promyelocytes # 0.0 K/mm3 06/13/17 04:55 Blast Cells # 0.0 K/mm3 06/13/17 04:55 WBC Morphology Not Reportable 06/13/17 04:55 Hypersegmented Neuts Not Reportable 06/13/17 04:55 Hyposegmented Neuts Not Reportable 06/13/17 04:55 Hypogranular Neuts Not Reportable 06/13/17 04:55 Smudge Cells Not Reportable 06/13/17 04:55 Toxic Granulation Not Reportable 06/13/17 04:55 Toxic Vacuolation Not Reportable 06/13/17 04:55 Dohle Bodies Not Reportable 06/13/17 04:55 Pelger-Huet Anomaly Not Reportable 06/13/17 04:55 Sunita Rods Not Reportable 06/13/17 04:55 Platelet Estimate Consistent w auto 06/13/17 04:55 Clumped Platelets Not Reportable 06/13/17 04:55 Plt Clumps, EDTA Not Reportable 06/13/17 04:55 Large Platelets Not Reportable 06/13/17 04:55 Giant Platelets Not Reportable 06/13/17 04:55 Platelet Satelliting Not Reportable 06/13/17 04:55 Plt Morphology Comment Not Reportable 06/13/17 04:55 RBC Morphology Not Reportable 06/13/17 04:55 Dimorphic RBCs Not Reportable 06/13/17 04:55 Polychromasia Rare 06/13/17 04:55 Hypochromasia 1+ 06/13/17 04:55 Poikilocytosis Not Reportable 06/13/17 04:55 Anisocytosis 1+ 06/13/17 04:55 Microcytosis Not Reportable 06/13/17 04:55 Macrocytosis Not Reportable 06/13/17 04:55 Spherocytes Not Reportable 06/13/17 04:55 Pappenheimer Bodies Not Reportable 06/13/17 04:55 Sickle Cells Not Reportable 06/13/17 04:55 Target Cells Not Reportable 06/13/17 04:55 Tear Drop Cells Not Reportable 06/13/17 04:55 Ovalocytes Not Reportable 06/13/17 04:55 Helmet Cells Not Reportable 06/13/17 04:55 Ramos-[place] Bodies Not Reportable 06/13/17 04:55 [place] Rings Not Reportable 06/13/17 04:55 Donaldo Cells Not Reportable 06/13/17 04:55 Bite Cells Not Reportable 06/13/17 04:55 Crenated Cell Not Reportable 06/13/17 04:55 Elliptocytes Not Reportable 06/13/17 04:55 Acanthocytes (Spur) Not Reportable 06/13/17 04:55 Rouleaux Not Reportable 06/13/17 04:55 Hemoglobin C Crystals Not Reportable 06/13/17 04:55 Schistocytes Rare 06/13/17 04:55 Malaria parasites Not Reportable 06/13/17 04:55 Williams Bodies Not Reportable 06/13/17 04:55 Hem Pathologist Commnt No 06/13/17 04:55 PT 13.5 Sec. (12.2-14.9) 06/09/17 16:55 INR 0.98 (0.87-1.13) 06/09/17 16:55 APTT 29.9 Sec. (24.2-36.6) 06/09/17 16:55 POC ABG pH 7.556 (7.35-7.45) H 06/11/17 06:51 ABG pH 7.382 pH Units (7.350-7.450) 06/13/17 04:15 POC ABG pCO2 34.8 (35-45) L 06/11/17 06:51 ABG pCO2 44.8 mm Hg 06/13/17 04:15 POC ABG pO2 125 (80-105) H 06/11/17 06:51 ABG pO2 131.0 mm Hg (80.0-90.0) H 06/13/17 04:15 POC ABG HCO3 30.9 06/11/17 06:51 ABG HCO3 26.0 mmol/L (20.0-26.0) 06/13/17 04:15 POC ABG Total CO2 32 06/11/17 06:51 POC ABG O2 Sat 99 06/11/17 06:51 ABG O2 Saturation 98.5 % (95.0-99.0) 06/13/17 04:15 ABG O2 Content 14.5 (0.0-44) 06/13/17 04:15 POC ABG Base Excess 9 06/11/17 06:51 ABG Base Excess 0.7 mmol/L (-2.0-3.0) 06/13/17 04:15 ABG Hemoglobin 10.5 gm/dl (12.0-16.0) L 06/13/17 04:15 ABG Carboxyhemoglobin 1.6 % (0.0-5.0) 06/13/17 04:15 ABG Methemoglobin 0.4 % (0.0-1.5) 06/13/17 04:15 Oxyhemoglobin 96.5 % (95.0-99.0) 06/13/17 04:15 POC Sodium 137 mmol/L (138-146) L 06/04/17 16:22 POC Potassium 5.3 (3.5-4.9) H 06/04/17 16:22 POC Chloride 102 (98-109) 06/04/17 16:22 FiO2 40 % 06/13/17 04:15 Sodium 128 mmol/L (137-145) L 06/13/17 04:55 Potassium 4.5 mmol/L (3.6-5.0) 06/13/17 04:55 Chloride 88.9 mmol/L (98-107) L 06/13/17 04:55 Carbon Dioxide 24 mmol/L (22-30) 06/13/17 04:55 Anion Gap 20 mmol/L 06/13/17 04:55 POC BUN 45 mg/dl (8-26) H 06/04/17 16:22 BUN 73 mg/dL (7-17) H 06/13/17 04:55 Creatinine 7.6 mg/dL (0.7-1.2) H 06/13/17 04:55 Estimated GFR 7 ml/min 06/13/17 04:55 BUN/Creatinine Ratio 10 % 06/13/17 04:55 Glucose 115 mg/dL (65-100) H 06/13/17 04:55 POC Glucose 100 (70-105) 06/13/17 05:32 Osmolality 316 Mosm/kg 06/12/17 07:30 Calcium 8.1 mg/dL (8.4-10.2) L 06/13/17 04:55 Phosphorus 4.50 mg/dL (2.5-4.5) 06/06/17 07:13 Magnesium 1.90 mg/dL (1.7-2.3) 06/06/17 07:13 Total Bilirubin 0.20 mg/dL (0.1-1.2) 06/06/17 07:13 AST 14 units/L (5-40) 06/06/17 07:13 ALT 15 units/L (7-56) 06/06/17 07:13 Alkaline Phosphatase 79 units/L (35-129) 06/06/17 07:13 Total Protein 5.7 g/dL (6.3-8.2) L 06/06/17 07:13 Albumin 3.3 g/dL (3.9-5) L 06/06/17 07:13 Albumin/Globulin Ratio 1.4 % 06/06/17 07:13 Triglycerides 132 mg/dL (2-149) 06/09/17 11:49 Cholesterol 171 mg/dL (50-199) 06/09/17 11:49 LDL Cholesterol Direct 95 mg/dL (50-130) 06/09/17 11:49 HDL Cholesterol 50 mg/dL (40-59) 06/09/17 11:49 Cholesterol/HDL Ratio 3.42 % 06/09/17 11:49 PTH Pre-Incision 641.9 (11.1-79.5) H 06/04/17 13:55 PTH Post-Excision 154.7 (11.1-79.5) H 06/04/17 13:55 PTH Intact Intraop 5 m Not Reportable 06/04/17 13:55 - Imaging and Cardiology Chest x-ray: image reviewed (no acute pathology)
--- NOTE | 2017-06-13 10:37 | Progress Note ---
Assessment and Plan Acute CVA / AMS - head CT showed acute stroke in MCA, no hemorrhage Thrombus in distal L ICA and MCA - per chart, neuro currently recommends against heparin gtt in setting of acute CVA and risk of conversion to hemorrhagic CVA. Hyperparathyroidism, s/p subtotal parathyroidectomy on 06/04/2017 CMP - EF 40-45%; no current clinical evidence of acute heart failure Acute respiratory failure / Laryngeal edema/stridor - improving; decadron per pulmonary; s/p intubation HTN ESRD on HD Hyperkalemia - improved Hypocalcemia Morbid obesity History of breast cancer status post mastectomy Plan: Echo reviewed - LV mildly dilated, mild to moderate LVH, EF 40-45%, LA moderate to severely dilated, mild MR, mild AR, mild TR, no thrombus. No clear cardiac cause for acute CVA. Discussed with family at the bedside about cardiac status will hold beta blockers and Dandy in ARB in view of lower blood pressure readings in view of cont low bp add midrone inorder to get manitol . Subjective Date of service: 06/13/17 Principal diagnosis: ARM/MV/Post hyperparathy./ESRD Interval history: pt intubated Objective Vital Signs Temp Pulse Pulse Resp BP Pulse Ox 06/13/17 10:00 65 20 91/53 98 06/13/17 09:56 20 06/13/17 09:46 64 19 90/54 99 06/13/17 09:30 62 21 90/54 98 06/13/17 09:16 67 22 99/57 100 06/13/17 09:00 69 18 99/57 99 06/13/17 08:46 68 19 94/57 99 06/13/17 08:30 68 21 94/57 98 06/13/17 08:16 70 19 101/55 99 06/13/17 08:15 19 06/13/17 08:00 98.5 F 73 17 101/55 06/13/17 07:59 69 101/55 96 06/13/17 07:46 69 21 92/51 99 06/13/17 07:30 68 16 92/51 06/13/17 07:16 66 16 94/49 98 06/13/17 07:00 68 17 96/49 97 06/13/17 06:46 68 16 87/47 99 06/13/17 06:30 67 17 94/49 99 06/13/17 06:16 66 16 87/47 100 06/13/17 06:00 65 16 87/47 97 06/13/17 05:46 66 16 98/57 100 06/13/17 05:30 66 17 98/57 98 06/13/17 05:16 66 16 105/55 99 06/13/17 05:00 67 16 105/55 97 06/13/17 04:46 68 16 100/56 98 06/13/17 04:30 66 16 100/56 06/13/17 04:16 68 16 96/57 100 06/13/17 04:00 67 16 94/54 100 06/13/17 03:51 98.9 F 06/13/17 03:46 68 16 96/57 100 06/13/17 03:30 70 17 96/57 97 06/13/17 03:16 71 19 129/75 100 06/13/17 03:00 73 23 129/75 98 06/13/17 02:46 69 18 101/60 99 06/13/17 02:30 67 17 101/60 99 06/13/17 02:16 68 18 103/61 100 06/13/17 02:00 69 18 103/61 97 06/13/17 01:46 70 20 103/59 100 06/13/17 01:30 66 17 103/59 98 06/13/17 01:16 65 17 106/60 100 06/13/17 01:00 65 17 106/60 98 06/13/17 00:46 65 16 113/66 100 06/13/17 00:37 66 100 06/13/17 00:30 66 16 113/66 06/13/17 00:16 65 16 101/55 100 06/13/17 00:00 98.8 F 65 16 101/55 99 06/12/17 23:46 66 16 100/60 100 06/12/17 23:40 66 16 100/60 100 06/12/17 23:30 67 16 100/60 06/12/17 23:16 68 17 99/54 100 06/12/17 23:00 66 16 99/54 98 06/12/17 22:46 67 17 98/60 100 06/12/17 22:30 64 15 98/60 06/12/17 22:16 67 16 97/55 100 06/12/17 22:00 69 18 97/55 99 06/12/17 21:46 68 17 99/61 100 06/12/17 21:30 69 19 99/61 100 06/12/17 21:16 69 18 99/58 100 06/12/17 21:00 68 17 99/58 99 06/12/17 20:46 70 17 98/54 100 06/12/17 20:34 98.6 F 06/12/17 20:30 66 18 98/54 100 06/12/17 20:16 66 17 92/54 100 06/12/17 20:00 98.6 F 66 17 92/54 100 06/12/17 19:46 68 17 92/52 100 06/12/17 19:30 68 17 92/52 98 06/12/17 19:16 69 18 89/55 99 06/12/17 19:00 69 18 89/55 99 06/12/17 18:46 68 17 108/63 100 06/12/17 18:30 72 18 100/56 99 06/12/17 18:16 72 17 97/57 100 06/12/17 18:00 74 18 108/63 96 06/12/17 17:59 100 06/12/17 17:46 72 17 97/57 100 06/12/17 17:30 73 18 97/57 06/12/17 17:16 76 18 96/60 98 06/12/17 17:00 73 16 96/60 97 06/12/17 16:46 69 23 104/58 100 06/12/17 16:30 67 22 104/58 98 06/12/17 16:16 65 22 90/55 100 06/12/17 16:00 66 17 90/55 100 06/12/17 15:46 68 23 94/55 100 06/12/17 15:30 70 21 94/55 97 06/12/17 15:21 99.0 F 06/12/17 15:16 68 23 100/59 100 06/12/17 15:00 66 22 100/59 06/12/17 14:46 69 23 90/50 100 06/12/17 14:30 70 23 90/50 97 06/12/17 14:16 68 18 91/53 100 06/12/17 14:05 23 100 06/12/17 14:00 68 18 91/53 97 06/12/17 13:46 69 19 90/52 100 06/12/17 13:30 69 19 90/52 99 06/12/17 13:16 70 21 93/52 99 06/12/17 13:00 69 18 93/52 99 06/12/17 12:46 68 16 94/56 99 06/12/17 12:30 68 19 94/56 06/12/17 12:16 67 18 90/55 100 06/12/17 12:00 98.4 F 68 69 22 90/55 100 06/12/17 11:54 70 92/52 100 06/12/17 11:46 73 22 92/52 100 06/12/17 11:30 69 19 79/29 99 06/12/17 11:16 71 21 99/49 100 06/12/17 11:00 71 17 99/49 99 06/12/17 10:46 72 17 90/63 99 - Physical Examination General: Other (withdrawn, nonverbal) HEENT: Positive: PERRL, Mucus Membranes Moist Neck: Positive: neck supple, trachea midline Cardiac: Positive: Reg Rate and Rhythm Lungs: Positive: clear to auscultation Neuro: Positive: Weakness (right-sided) Abdomen: Positive: Unremarkable. Negative: Tender Skin: Positive: Clear. Negative: Rash, Wound Musculoskeletal: No Fluid Collection, No Pain, Normal Range of Motion Extremities: Absent: edema - Labs and Meds CBC 06/13/17 Range/Units 04:55 WBC 17.9 H (4.5-11.0) K/mm3 RBC 4.42 (3.65-5.03) M/mm3 Hgb 10.5 (10.1-14.3) gm/dl Hct 33.1 (30.3-42.9) % Plt Count 200 (140-440) K/mm3 Comprehensive Metabolic Panel 06/13/17 Range/Units 04:55 Sodium 128 L (137-145) mmol/L Potassium 4.5 (3.6-5.0) mmol/L Chloride 88.9 L (98-107) mmol/L Carbon Dioxide 24 (22-30) mmol/L BUN 73 H (7-17) mg/dL Creatinine 7.6 H (0.7-1.2) mg/dL Glucose 115 H (65-100) mg/dL Calcium 8.1 L (8.4-10.2) mg/dL - Imaging and Cardiology EKG: image reviewed Echo: report reviewed (LV mildly dilated, mild to moderate LVH, EF 40-45%, LA moderate to severely dilated, mild MR, mild AR, mild TR. ) - Telemetry EKG Rhythm: Sinus Rhythm - EKG Sinus rhythms and dysrhythmias: sinus rhythm
--- NOTE | 2017-06-13 10:43 | Progress Note ---
Assessment and Plan 1. Hyperparathyroidism s/p parathyroidectomy 2. Acute respiratory failure, hypoxia/hypercapnea 3. Morbid obesity 4. ESRD 5. Laryngeal edema/stridor. Intubated 6. Acute CVA. Reviewed with neurology. Echo to manipulation with targeted PCO2 and mannitol were initiated. 7. Hypotension. See cards recommendations 8. Hyponatremia. Possibly dilutional. Was on NSS aprox. 100cc/hr.Now on hold Rec: Midrone per cards if persistent hypotension, start on steroids empyrically,monitor lactate HD per Neprology tomorrow Increase RR to 18-20, keep PaCO2 25-30 mmhg Discussed with family in detail Update Na+ level in am prior to HD Critical care time was 31 minutes of [id number] evaluation and coordination of care Subjective Date of service: 06/13/17 Principal diagnosis: ARM/MV/Post hyperparathy./ESRD Interval history: No events overnight. Moving LUE sporadically per family at the bedside. Objective Vital Signs - 12hr 06/12/17 06/12/17 06/12/17 22:46 23:00 23:16 Temperature Pulse Rate 67 66 68 Respiratory 17 16 17 Rate Blood Pressure 98/60 99/54 99/54 O2 Sat by Pulse 100 98 100 Oximetry 06/12/17 06/12/17 06/12/17 23:30 23:40 23:46 Temperature Pulse Rate 67 66 66 Respiratory 16 16 16 Rate Blood Pressure 100/60 100/60 100/60 O2 Sat by Pulse 100 100 Oximetry 06/13/17 06/13/17 06/13/17 00:00 00:16 00:30 Temperature 98.8 F Pulse Rate 65 65 66 Respiratory 16 16 16 Rate Blood Pressure 101/55 101/55 113/66 O2 Sat by Pulse 99 100 Oximetry 06/13/17 06/13/17 06/13/17 00:37 00:46 01:00 Temperature Pulse Rate 66 65 65 Respiratory 16 17 Rate Blood Pressure 113/66 106/60 O2 Sat by Pulse 100 100 98 Oximetry 06/13/17 06/13/17 06/13/17 01:16 01:30 01:46 Temperature Pulse Rate 65 66 70 Respiratory 17 17 20 Rate Blood Pressure 106/60 103/59 103/59 O2 Sat by Pulse 100 98 100 Oximetry 06/13/17 06/13/17 06/13/17 02:00 02:16 02:30 Temperature Pulse Rate 69 68 67 Respiratory 18 18 17 Rate Blood Pressure 103/61 103/61 101/60 O2 Sat by Pulse 97 100 99 Oximetry 06/13/17 06/13/17 06/13/17 02:46 03:00 03:16 Temperature Pulse Rate 69 73 71 Respiratory 18 23 19 Rate Blood Pressure 101/60 129/75 129/75 O2 Sat by Pulse 99 98 100 Oximetry 06/13/17 06/13/17 06/13/17 03:30 03:46 03:51 Temperature 98.9 F Pulse Rate 70 68 Respiratory 17 16 Rate Blood Pressure 96/57 96/57 O2 Sat by Pulse 97 100 Oximetry 06/13/17 06/13/17 06/13/17 04:00 04:16 04:30 Temperature Pulse Rate 67 68 66 Respiratory 16 16 16 Rate Blood Pressure 94/54 96/57 100/56 O2 Sat by Pulse 100 100 Oximetry 06/13/17 06/13/17 06/13/17 04:46 05:00 05:16 Temperature Pulse Rate 68 67 66 Respiratory 16 16 16 Rate Blood Pressure 100/56 105/55 105/55 O2 Sat by Pulse 98 97 99 Oximetry 06/13/17 06/13/17 06/13/17 05:30 05:46 06:00 Temperature Pulse Rate 66 66 65 Respiratory 17 16 16 Rate Blood Pressure 98/57 98/57 87/47 O2 Sat by Pulse 98 100 97 Oximetry 06/13/17 06/13/17 06/13/17 06:16 06:30 06:46 Temperature Pulse Rate 66 67 68 Respiratory 16 17 16 Rate Blood Pressure 87/47 94/49 87/47 O2 Sat by Pulse 100 99 99 Oximetry 06/13/17 06/13/17 06/13/17 07:00 07:16 07:30 Temperature Pulse Rate 68 66 68 Respiratory 17 16 16 Rate Blood Pressure 96/49 94/49 92/51 O2 Sat by Pulse 97 98 Oximetry 06/13/17 06/13/17 06/13/17 07:46 07:59 08:00 Temperature 98.5 F Pulse Rate 69 69 73 Respiratory 21 17 Rate Blood Pressure 92/51 101/55 101/55 O2 Sat by Pulse 99 96 Oximetry 06/13/17 06/13/17 06/13/17 08:15 08:16 08:30 Temperature Pulse Rate 70 68 Respiratory 19 19 21 Rate Blood Pressure 101/55 94/57 O2 Sat by Pulse 99 98 Oximetry 06/13/17 06/13/17 06/13/17 08:46 09:00 09:16 Temperature Pulse Rate 68 69 67 Respiratory 19 18 22 Rate Blood Pressure 94/57 99/57 99/57 O2 Sat by Pulse 99 99 100 Oximetry 06/13/17 06/13/17 06/13/17 09:30 09:46 09:56 Temperature Pulse Rate 62 64 Respiratory 21 19 20 Rate Blood Pressure 90/54 90/54 O2 Sat by Pulse 98 99 Oximetry 06/13/17 10:00 Temperature Pulse Rate 65 Respiratory 20 Rate Blood Pressure 91/53 O2 Sat by Pulse 98 Oximetry Constitutional: no acute distress, lethargic, other (intubated, some response to tactile stimulation otherwise nonresponsive) Eyes: non-icteric ENT: other (orally intubated) Neck: supple, no JVD, other (no stridor) Effort: normal Ascultation: Bilateral: clear, diminished breath sounds Cardiovascular: regular rate and rhythm Gastrointestinal: normoactive bowel sounds, soft, non-tender, non-distended, other (obese) Integumentary: normal Extremities: no cyanosis, no edema, pink and warm, edema Neurologic: other (altered mentation, R-hemiparesis,GCS 3-4) Psychiatric: mood appropriate, affect normal CBC and BMP: 06/13/17 04:55 06/13/17 04:55 ABG, PT/INR, D-dimer: ABG POC ABG pH 7.556 (7.35-7.45) H 06/11/17 06:51 ABG pH 7.382 pH Units (7.350-7.450) 06/13/17 04:15 POC ABG pCO2 34.8 (35-45) L 06/11/17 06:51 ABG pCO2 44.8 mm Hg 06/13/17 04:15 POC ABG pO2 125 (80-105) H 06/11/17 06:51 ABG pO2 131.0 mm Hg (80.0-90.0) H 06/13/17 04:15 POC ABG HCO3 30.9 06/11/17 06:51 POC ABG Total CO2 32 06/11/17 06:51 POC ABG O2 Sat 99 06/11/17 06:51 ABG O2 Saturation 98.5 % (95.0-99.0) 06/13/17 04:15 PT/INR, D-dimer PT 13.5 Sec. (12.2-14.9) 06/09/17 16:55 INR 0.98 (0.87-1.13) 06/09/17 16:55 Abnormal lab findings: Abnormal Labs 06/04/17 06/04/17 06/04/17 00:01 12:50 13:55 WBC 11.4 H POC Hct MCV 76 L MCH 23 L RDW 18.5 H Seg Neuts % (Manual) 89.0 H Lymphocytes % (Manual) 6.0 L Monocytes % (Manual) Nucleated RBC % Seg Neutrophils # Man 10.1 H Lymphocytes # (Manual) 0.7 L Monocytes # (Manual) Eosinophils # (Manual) Basophils # (Manual) POC ABG pH ABG pH POC ABG pCO2 POC ABG pO2 ABG pO2 ABG O2 Saturation ABG Hemoglobin POC Sodium POC Potassium Sodium Potassium 5.1 H 5.2 H Chloride POC BUN BUN 48 H Creatinine 6.2 H Glucose POC Glucose Calcium Total Protein Albumin PTH Pre-Incision PTH Post-Excision 06/04/17 06/04/17 06/04/17 13:55 16:10 16:16 WBC POC Hct 37 L MCV MCH RDW Seg Neuts % (Manual) Lymphocytes % (Manual) Monocytes % (Manual) Nucleated RBC % Seg Neutrophils # Man Lymphocytes # (Manual) Monocytes # (Manual) Eosinophils # (Manual) Basophils # (Manual) POC ABG pH 7.306 L ABG pH POC ABG pCO2 58.7 H POC ABG pO2 338 H ABG pO2 ABG O2 Saturation ABG Hemoglobin POC Sodium 135 L POC Potassium 5.2 H Sodium Potassium Chloride POC BUN 44 H BUN Creatinine Glucose POC Glucose 183 H Calcium Total Protein Albumin PTH Pre-Incision 641.9 H PTH Post-Excision 154.7 H 06/04/17 06/04/17 06/04/17 16:22 20:44 21:29 WBC POC Hct MCV MCH RDW Seg Neuts % (Manual) Lymphocytes % (Manual) Monocytes % (Manual) Nucleated RBC % Seg Neutrophils # Man Lymphocytes # (Manual) Monocytes # (Manual) Eosinophils # (Manual) Basophils # (Manual) POC ABG pH 7.484 H ABG pH POC ABG pCO2 POC ABG pO2 ABG pO2 ABG O2 Saturation ABG Hemoglobin POC Sodium 137 L POC Potassium 5.3 H Sodium Potassium 5.2 H Chloride POC BUN 45 H BUN 51 H Creatinine 6.5 H Glucose 119 H POC Glucose 176 H Calcium Total Protein Albumin PTH Pre-Incision PTH Post-Excision 06/05/17 06/05/17 06/05/17 03:31 11:44 11:44 WBC 13.4 H POC Hct MCV 75 L MCH 23 L RDW 18.2 H Seg Neuts % (Manual) Lymphocytes % (Manual) Monocytes % (Manual) Nucleated RBC % Seg Neutrophils # Man Lymphocytes # (Manual) Monocytes # (Manual) Eosinophils # (Manual) Basophils # (Manual) POC ABG pH ABG pH POC ABG pCO2 POC ABG pO2 75 L ABG pO2 ABG O2 Saturation ABG Hemoglobin POC Sodium POC Potassium Sodium Potassium 5.8 H Chloride POC BUN BUN 56 H Creatinine 7.0 H Glucose 111 H POC Glucose Calcium 8.2 L Total Protein 6.2 L Albumin 3.1 L PTH Pre-Incision PTH Post-Excision 06/06/17 06/06/17 06/07/17 05:07 07:13 03:53 WBC POC Hct MCV MCH RDW Seg Neuts % (Manual) Lymphocytes % (Manual) Monocytes % (Manual) Nucleated RBC % Seg Neutrophils # Man Lymphocytes # (Manual) Monocytes # (Manual) Eosinophils # (Manual) Basophils # (Manual) POC ABG pH ABG pH POC ABG pCO2 POC ABG pO2 116 H 137 H ABG pO2 ABG O2 Saturation ABG Hemoglobin POC Sodium POC Potassium Sodium Potassium Chloride POC BUN BUN 32 H Creatinine 4.9 H Glucose 115 H POC Glucose Calcium 7.9 L Total Protein 5.7 L Albumin 3.3 L PTH Pre-Incision PTH Post-Excision 06/07/17 06/07/17 06/07/17 05:21 05:21 16:54 WBC POC Hct MCV 75 L MCH 24 L RDW 18.7 H Seg Neuts % (Manual) Lymphocytes % (Manual) Monocytes % (Manual) Nucleated RBC % Seg Neutrophils # Man Lymphocytes # (Manual) Monocytes # (Manual) Eosinophils # (Manual) Basophils # (Manual) POC ABG pH ABG pH POC ABG pCO2 POC ABG pO2 ABG pO2 ABG O2 Saturation ABG Hemoglobin POC Sodium POC Potassium Sodium Potassium 5.4 H Chloride POC BUN BUN 52 H Creatinine 6.2 H Glucose 107 H POC Glucose 110 H Calcium 8.0 L Total Protein Albumin PTH Pre-Incision PTH Post-Excision 06/07/17 06/07/17 06/08/17 17:38 23:32 04:00 WBC POC Hct MCV 77 L MCH 23 L RDW 18.3 H Seg Neuts % (Manual) 78.0 H Lymphocytes % (Manual) Monocytes % (Manual) Nucleated RBC % 3.0 H Seg Neutrophils # Man 7.8 H Lymphocytes # (Manual) Monocytes # (Manual) Eosinophils # (Manual) Basophils # (Manual) POC ABG pH 7.310 L ABG pH POC ABG pCO2 51.9 H POC ABG pO2 ABG pO2 ABG O2 Saturation ABG Hemoglobin POC Sodium POC Potassium Sodium Potassium Chloride POC BUN BUN Creatinine Glucose POC Glucose 63 L Calcium Total Protein Albumin PTH Pre-Incision PTH Post-Excision 06/08/17 06/08/17 06/08/17 04:00 10:51 11:25 WBC POC Hct MCV MCH RDW Seg Neuts % (Manual) Lymphocytes % (Manual) Monocytes % (Manual) Nucleated RBC % Seg Neutrophils # Man Lymphocytes # (Manual) Monocytes # (Manual) Eosinophils # (Manual) Basophils # (Manual) POC ABG pH 7.336 L ABG pH POC ABG pCO2 55.1 H POC ABG pO2 ABG pO2 ABG O2 Saturation ABG Hemoglobin POC Sodium POC Potassium Sodium Potassium Chloride 96.9 L POC BUN BUN 29 H Creatinine 4.6 H Glucose POC Glucose 108 H Calcium 8.3 L Total Protein Albumin PTH Pre-Incision PTH Post-Excision 06/08/17 06/09/17 06/09/17 14:22 11:42 11:42 WBC POC Hct MCV 76 L MCH 24 L RDW 18.3 H Seg Neuts % (Manual) 80.0 H Lymphocytes % (Manual) 10.0 L Monocytes % (Manual) Nucleated RBC % 2.0 H Seg Neutrophils # Man Lymphocytes # (Manual) 1.0 L Monocytes # (Manual) Eosinophils # (Manual) Basophils # (Manual) POC ABG pH ABG pH POC ABG pCO2 52.8 H POC ABG pO2 77 L ABG pO2 ABG O2 Saturation ABG Hemoglobin POC Sodium POC Potassium Sodium Potassium 5.4 H D Chloride 97.1 L POC BUN BUN 58 H Creatinine 6.6 H Glucose POC Glucose Calcium 7.2 L Total Protein Albumin PTH Pre-Incision PTH Post-Excision 06/09/17 06/10/17 06/10/17 12:04 03:29 03:29 WBC 13.7 H POC Hct MCV 77 L MCH 24 L RDW 17.9 H Seg Neuts % (Manual) 82.0 H Lymphocytes % (Manual) 7.0 L Monocytes % (Manual) Nucleated RBC % 6.0 H Seg Neutrophils # Man 11.2 H Lymphocytes # (Manual) 1.0 L Monocytes # (Manual) Eosinophils # (Manual) Basophils # (Manual) POC ABG pH ABG pH POC ABG pCO2 POC ABG pO2 ABG pO2 ABG O2 Saturation ABG Hemoglobin POC Sodium POC Potassium Sodium Potassium Chloride 94.2 L POC BUN BUN 32 H Creatinine 4.6 H Glucose 106 H POC Glucose 106 H Calcium 8.0 L Total Protein Albumin PTH Pre-Incision PTH Post-Excision 06/10/17 06/11/17 06/11/17 05:27 06:00 06:00 WBC 11.8 H POC Hct MCV 77 L MCH 24 L RDW 18.3 H Seg Neuts % (Manual) 88.0 H Lymphocytes % (Manual) 7.0 L Monocytes % (Manual) Nucleated RBC % 1.0 H Seg Neutrophils # Man 10.4 H Lymphocytes # (Manual) 0.8 L Monocytes # (Manual) Eosinophils # (Manual) Basophils # (Manual) POC ABG pH ABG pH POC ABG pCO2 POC ABG pO2 ABG pO2 ABG O2 Saturation ABG Hemoglobin POC Sodium POC Potassium Sodium Potassium Chloride POC BUN BUN 53 H Creatinine 6.0 H Glucose POC Glucose 106 H Calcium 6.3 L D Total Protein Albumin PTH Pre-Incision PTH Post-Excision 06/11/17 06/11/17 06/11/17 06:51 12:10 16:54 WBC POC Hct MCV MCH RDW Seg Neuts % (Manual) Lymphocytes % (Manual) Monocytes % (Manual) Nucleated RBC % Seg Neutrophils # Man Lymphocytes # (Manual) Monocytes # (Manual) Eosinophils # (Manual) Basophils # (Manual) POC ABG pH 7.556 H ABG pH POC ABG pCO2 34.8 L POC ABG pO2 125 H ABG pO2 ABG O2 Saturation ABG Hemoglobin POC Sodium POC Potassium Sodium Potassium Chloride POC BUN BUN Creatinine Glucose POC Glucose 115 H 106 H Calcium Total Protein Albumin PTH Pre-Incision PTH Post-Excision 06/11/17 06/12/17 06/12/17 20:20 00:06 04:20 WBC POC Hct MCV MCH RDW Seg Neuts % (Manual) Lymphocytes % (Manual) Monocytes % (Manual) Nucleated RBC % Seg Neutrophils # Man Lymphocytes # (Manual) Monocytes # (Manual) Eosinophils # (Manual) Basophils # (Manual) POC ABG pH ABG pH 7.512 H 7.514 H POC ABG pCO2 POC ABG pO2 ABG pO2 148.5 H 209.1 H ABG O2 Saturation 99.3 H ABG Hemoglobin POC Sodium POC Potassium Sodium Potassium Chloride POC BUN BUN Creatinine Glucose POC Glucose 108 H Calcium Total Protein Albumin PTH Pre-Incision PTH Post-Excision 06/12/17 06/12/17 06/12/17 05:24 05:30 05:30 WBC 14.3 H POC Hct MCV 75 L MCH 24 L RDW 18.5 H Seg Neuts % (Manual) 73.0 H Lymphocytes % (Manual) 6.0 L Monocytes % (Manual) 9.0 H Nucleated RBC % 1.0 H Seg Neutrophils # Man 10.4 H Lymphocytes # (Manual) 0.9 L Monocytes # (Manual) 1.3 H Eosinophils # (Manual) Basophils # (Manual) POC ABG pH ABG pH POC ABG pCO2 POC ABG pO2 ABG pO2 ABG O2 Saturation ABG Hemoglobin POC Sodium POC Potassium Sodium 131 L D Potassium Chloride 90.6 L POC BUN BUN 51 H Creatinine 6.5 H Glucose POC Glucose 109 H Calcium Total Protein Albumin PTH Pre-Incision PTH Post-Excision 06/12/17 06/13/17 06/13/17 11:46 04:15 04:55 WBC 17.9 H POC Hct MCV 75 L MCH 24 L RDW 18.5 H Seg Neuts % (Manual) 75.0 H Lymphocytes % (Manual) 6.0 L Monocytes % (Manual) 9.0 H Nucleated RBC % Seg Neutrophils # Man 13.4 H Lymphocytes # (Manual) 1.1 L Monocytes # (Manual) 1.6 H Eosinophils # (Manual) 0.5 H Basophils # (Manual) 0.2 H POC ABG pH ABG pH POC ABG pCO2 POC ABG pO2 ABG pO2 131.0 H ABG O2 Saturation ABG Hemoglobin 10.5 L POC Sodium POC Potassium Sodium Potassium Chloride POC BUN BUN Creatinine Glucose POC Glucose 116 H Calcium Total Protein Albumin PTH Pre-Incision PTH Post-Excision 06/13/17 04:55 WBC POC Hct MCV MCH RDW Seg Neuts % (Manual) Lymphocytes % (Manual) Monocytes % (Manual) Nucleated RBC % Seg Neutrophils # Man Lymphocytes # (Manual) Monocytes # (Manual) Eosinophils # (Manual) Basophils # (Manual) POC ABG pH ABG pH POC ABG pCO2 POC ABG pO2 ABG pO2 ABG O2 Saturation ABG Hemoglobin POC Sodium POC Potassium Sodium 128 L Potassium Chloride 88.9 L POC BUN BUN 73 H Creatinine 7.6 H Glucose 115 H POC Glucose Calcium 8.1 L Total Protein Albumin PTH Pre-Incision PTH Post-Excision
--- NOTE | 2017-06-13 11:07 | Progress Note ---
Assessment and Plan Impression: * ESRD * hypertension * s/p parathyroidectomy * Anemia in esrd * respiratory failure * Acute CVA * Hyponatremia Plan: * Continue hemodialysis q mwf * Serum calcium seems to be stable . Continue current calcium supplements as well as calcium bath to 3.5 with dialysis * Continue tums and calcitriol * iv calcium prn * uf as tolerated with hd * epogen with hd * strict i/os * follow up am lytes * Restrict free water intake Subjective Date of service: 06/13/17 Principal diagnosis: ARM/MV/Post hyperparathy./ESRD Interval history: Patient remains on the ventilator. Currently on 35% FiO2. Unresponsive. Objective - Vital Signs Vital signs: Vital Signs - 12hr 06/12/17 06/12/17 06/12/17 23:16 23:30 23:40 Temperature Pulse Rate 68 67 66 Respiratory 17 16 16 Rate Blood Pressure 99/54 100/60 100/60 O2 Sat by Pulse 100 100 Oximetry 06/12/17 06/13/17 06/13/17 23:46 00:00 00:16 Temperature 98.8 F Pulse Rate 66 65 65 Respiratory 16 16 16 Rate Blood Pressure 100/60 101/55 101/55 O2 Sat by Pulse 100 99 100 Oximetry 06/13/17 06/13/17 06/13/17 00:30 00:37 00:46 Temperature Pulse Rate 66 66 65 Respiratory 16 16 Rate Blood Pressure 113/66 113/66 O2 Sat by Pulse 100 100 Oximetry 06/13/17 06/13/17 06/13/17 01:00 01:16 01:30 Temperature Pulse Rate 65 65 66 Respiratory 17 17 17 Rate Blood Pressure 106/60 106/60 103/59 O2 Sat by Pulse 98 100 98 Oximetry 06/13/17 06/13/17 06/13/17 01:46 02:00 02:16 Temperature Pulse Rate 70 69 68 Respiratory 20 18 18 Rate Blood Pressure 103/59 103/61 103/61 O2 Sat by Pulse 100 97 100 Oximetry 06/13/17 06/13/17 06/13/17 02:30 02:46 03:00 Temperature Pulse Rate 67 69 73 Respiratory 17 18 23 Rate Blood Pressure 101/60 101/60 129/75 O2 Sat by Pulse 99 99 98 Oximetry 06/13/17 06/13/17 06/13/17 03:16 03:30 03:46 Temperature Pulse Rate 71 70 68 Respiratory 19 17 16 Rate Blood Pressure 129/75 96/57 96/57 O2 Sat by Pulse 100 97 100 Oximetry 06/13/17 06/13/17 06/13/17 03:51 04:00 04:16 Temperature 98.9 F Pulse Rate 67 68 Respiratory 16 16 Rate Blood Pressure 94/54 96/57 O2 Sat by Pulse 100 100 Oximetry 06/13/17 06/13/17 06/13/17 04:30 04:46 05:00 Temperature Pulse Rate 66 68 67 Respiratory 16 16 16 Rate Blood Pressure 100/56 100/56 105/55 O2 Sat by Pulse 98 97 Oximetry 06/13/17 06/13/17 06/13/17 05:16 05:30 05:46 Temperature Pulse Rate 66 66 66 Respiratory 16 17 16 Rate Blood Pressure 105/55 98/57 98/57 O2 Sat by Pulse 99 98 100 Oximetry 06/13/17 06/13/17 06/13/17 06:00 06:16 06:30 Temperature Pulse Rate 65 66 67 Respiratory 16 16 17 Rate Blood Pressure 87/47 87/47 94/49 O2 Sat by Pulse 97 100 99 Oximetry 06/13/17 06/13/17 06/13/17 06:46 07:00 07:16 Temperature Pulse Rate 68 68 66 Respiratory 16 17 16 Rate Blood Pressure 87/47 96/49 94/49 O2 Sat by Pulse 99 97 98 Oximetry 06/13/17 06/13/17 06/13/17 07:30 07:46 07:59 Temperature Pulse Rate 68 69 69 Respiratory 16 21 Rate Blood Pressure 92/51 92/51 101/55 O2 Sat by Pulse 99 96 Oximetry 06/13/17 06/13/17 06/13/17 08:00 08:15 08:16 Temperature 98.5 F Pulse Rate 73 70 Respiratory 17 19 19 Rate Blood Pressure 101/55 101/55 O2 Sat by Pulse 99 Oximetry 06/13/17 06/13/17 06/13/17 08:30 08:46 09:00 Temperature Pulse Rate 68 68 69 Respiratory 21 19 18 Rate Blood Pressure 94/57 94/57 99/57 O2 Sat by Pulse 98 99 99 Oximetry 06/13/17 06/13/17 06/13/17 09:16 09:30 09:46 Temperature Pulse Rate 67 62 64 Respiratory 22 21 19 Rate Blood Pressure 99/57 90/54 90/54 O2 Sat by Pulse 100 98 99 Oximetry 06/13/17 06/13/17 09:56 10:00 Temperature Pulse Rate 65 Respiratory 20 20 Rate Blood Pressure 91/53 O2 Sat by Pulse 98 Oximetry - General Appearance General appearance: well-developed, well-nourished, appears stated age, intubated EENT: PERRL, mucous membranes moist Neck: no JVD, other (scar noted on the anterior aspect of her neck) Respiratory: Present: Ronchi (a few scattered rhonchi) Cardiology: regular, normal heart rate, S1S2, no murmurs Gastrointestinal: normal, normoactive bowel sounds Integumentary: no rash, other (AV fistula left upper arm. Good bruit until) - Lab 06/13/17 04:55 06/13/17 04:55 Most recent lab results ABG pH 7.382 pH Units (7.350-7.450) 06/13/17 04:15 ABG pCO2 44.8 mm Hg 06/13/17 04:15 ABG pO2 131.0 mm Hg (80.0-90.0) H 06/13/17 04:15 ABG HCO3 26.0 mmol/L (20.0-26.0) 06/13/17 04:15 ABG O2 Saturation 98.5 % (95.0-99.0) 06/13/17 04:15 Calcium 8.1 mg/dL (8.4-10.2) L 06/13/17 04:55 Phosphorus 4.50 mg/dL (2.5-4.5) 06/06/17 07:13 Magnesium 1.90 mg/dL (1.7-2.3) 06/06/17 07:13
[2017-06-13] MEDS: PROAMATINE PO SCH ×3 (11:38→22:53)
[2017-06-14] MEDS: OSMITROL IV SCH (04:38)
[2017-06-14] MEDS: VIAFLEX EMPTY CONTAINER IV SCH (04:38)
[2017-06-14 05:03] LABS: Calcium 8.1 mg/dL (8.4-10.2); Chloride 84.3 mmol/L (98-107); Potassium 4.6 mmol/L (3.6-5.0)
[2017-06-14 05:12] LABS: Hematocrit 31.3 % (30.3-42.9); Hemoglobin 9.7 gm/dl (10.1-14.3); Mean Corpuscular HGB Conc 31 % (30-34); Mean Corpuscular Volume 76 fl (79-97); Platelet Count 184 K/mm3 (140-440); Red Blood Count 4.13 M/mm3 (3.65-5.03); Red Cell Distribution Width 18.3 % (13.2-15.2); White Blood Count 17.8 K/mm3 (4.5-11.0)
[2017-06-14 05:18] LABS: Mean Corpuscular Hemoglobin 24 pg (28-32)
[2017-06-14] MEDS: PROAMATINE PO SCH ×3 (05:40→22:18)
[2017-06-14 05:55] LABS: ABG Base Excess -0.2 mmol/L (-2.0-3.0); ABG HCO3 24.7 mmol/L (20.0-26.0); ABG Oxygen Saturation 97.9 % (95.0-99.0); ABG PCO2 41.8 mm Hg; ABG PH 7.39 pH Units (7.350-7.450); ABG PO2 109.3 mm Hg (80.0-90.0)
[2017-06-14 06:09] LABS: Basophils % (Manual) 0 % (0.0-1.8); Blastocytes % (Manual) 0 %
[2017-06-14 06:10] LABS: Anisocytosis 1+; Diff Status Complete; Hypochromasia 1+; Platelet Estimate Consistent w Auto; Polychromasia 1+; Schistocytes Rare
--- NOTE | 2017-06-14 07:15 | XRay Report ---
AP CHEST: HISTORY: Follow up respiratory failure Lines and support devices remain in good position. No change in cardiomegaly, pulmonary venous congestion and small left pleural effusion/atelectasis. No new acute process is demonstrated. IMPRESSION: No change.
[2017-06-14] MEDS: TUMS PO SCH ×3 (08:53→21:55)
--- NOTE | 2017-06-14 08:53 | Progress Note ---
Assessment and Plan Assessment and plan: 66-year-old female patient significant past medical history of hypertension and obstructive sleep apnea, ESRD on hemodialysis, breast cancer status post mastectomy underwent elective total parathyroidectomy and was admitted to ICU with respiratory failure requiring intubation, she unfortunately a stroke Acute left MCA stroke with right-sided weakness - Neurology consult appreciated -MR brain showed large left MCA acute infarct - on aspirin and statin - Cardiology consulted to rule out cardiac cause of stroke - Vascular surgery consulted no intervention needed - NO heparin GTT for the thrombus because of risk of hemorrhagic transformation -neuro input appreciated, trying mannitol to decrease IC edema Acute hypoxic respiratory failure on MV > 96 hours - re-intubated, continue vent and continue to attempt to wean as tolerated Metabolic Enchephalopathy -due to CVA and IC edema, imrpoving -continue mannitol Status post subtotal parathyroidectomy/Hypocalcemia - Continue postop care per surgery - continue to replete calcium as needed End-stage renal disease on hemodialysis - Continue hemodialysis as scheduled per nephrology Hyperkalemia -improved with HD Hypertension - Continue When necessary medication History of breast cancer status post mastectomy - Stable Morbid obesity with BMI of 47.8, - Nutrition input appreciated Moderate malnutrition -continue tube feeds Hyponatremia -reduce free water via G tube, should correct with HD -NS ordered The high probability of a clinically significant, sudden or life threatening deterioration of the [respiratory] system(s) required my full and direct attention, intervention and personal management. The aggregate critical care time was [32] minutes. This time is in addition to time spent performing reported procedures but includes the following: [x] Data Review and interpretation [x] Patient assessment and monitoring of vital signs [x] Documentation [x] Medication orders and managementPatient would benefit by outpatient bariatric surgical evaluation for weight reduction program and medically stable CODE STATUS FULL History Interval history: Mentation is somewhat improved, she is more responsive remains intubated Hospitalist Physical - Physical exam Narrative exam: General.: Appears well, no distress, nontoxic HEENT: Moist mucous membranes, extraocular muscles intact, no lymphadenopathy Neck: supple Cardiac: S1-S2 heard Lungs: clear to auscultation bilaterally Abdomen: soft , nontender, nondistended, bowel sounds positive Extremities: no edema clubbing or cyanosis Skin: no rash or lesions Neurologic: Intubated, Patient is only moving left side of her body responds to painful stimuli, right side is not moving. does not obey commands Psych: appropriate behavior, appropriate mood, corporative, judgment intact - Constitutional Vitals: Temp Pulse Resp BP Pulse Ox 98.4 F 67 20 108/60 99 06/14/17 08:00 06/14/17 08:00 06/14/17 08:00 06/14/17 08:00 06/14/17 08:00 General appearance: Present: no acute distress, other (withdrawn, nonverbal) Results - Labs CBC & Chem 7: 06/14/17 04:30 06/14/17 04:30 Labs: Laboratory Last Values WBC 17.8 K/mm3 (4.5-11.0) H 06/14/17 04:30 RBC 4.13 M/mm3 (3.65-5.03) 06/14/17 04:30 Hgb 9.7 gm/dl (10.1-14.3) L 06/14/17 04:30 POC Hgb 14.3 (12-17) 06/04/17 16:22 Hct 31.3 % (30.3-42.9) 06/14/17 04:30 POC Hct 42 (38-51) 06/04/17 16:22 MCV 76 fl (79-97) L 06/14/17 04:30 MCH 24 pg (28-32) L 06/14/17 04:30 MCHC 31 % (30-34) 06/14/17 04:30 RDW 18.3 % (13.2-15.2) H 06/14/17 04:30 Plt Count 184 K/mm3 (140-440) 06/14/17 04:30 Add Manual Diff Complete 06/14/17 04:30 Total Counted 100 06/14/17 04:30 Seg Neutrophils % [employer] 06/04/17 00:01 Seg Neuts % (Manual) 74.0 % (40.0-70.0) H 06/14/17 04:30 Band Neutrophils % 9.0 % 06/14/17 04:30 Lymphocytes % (Manual) 6.0 % (13.4-35.0) L 06/14/17 04:30 Reactive Lymphs % (Man) 0 % 06/14/17 04:30 Monocytes % (Manual) 9.0 % (0.0-7.3) H 06/14/17 04:30 Eosinophils % (Manual) 2.0 % (0.0-4.3) 06/14/17 04:30 Basophils % (Manual) 0 % (0.0-1.8) 06/14/17 04:30 Metamyelocytes % 0 % 06/14/17 04:30 Myelocytes % 0 % 06/14/17 04:30 Promyelocytes % 0 % 06/14/17 04:30 Blast Cells % 0 % 06/14/17 04:30 Nucleated RBC % Not Reportable 06/14/17 04:30 Seg Neutrophils # Man 13.2 K/mm3 (1.8-7.7) H 06/14/17 04:30 Band Neutrophils # 1.6 K/mm3 06/14/17 04:30 Lymphocytes # (Manual) 1.1 K/mm3 (1.2-5.4) L 06/14/17 04:30 Abs React Lymphs (Man) 0.0 K/mm3 06/14/17 04:30 Monocytes # (Manual) 1.6 K/mm3 (0.0-0.8) H 06/14/17 04:30 Eosinophils # (Manual) 0.4 K/mm3 (0.0-0.4) 06/14/17 04:30 Basophils # (Manual) 0.0 K/mm3 (0.0-0.1) 06/14/17 04:30 Metamyelocytes # 0.0 K/mm3 06/14/17 04:30 Myelocytes # 0.0 K/mm3 06/14/17 04:30 Promyelocytes # 0.0 K/mm3 06/14/17 04:30 Blast Cells # 0.0 K/mm3 06/14/17 04:30 WBC Morphology Not Reportable 06/14/17 04:30 Hypersegmented Neuts Not Reportable 06/14/17 04:30 Hyposegmented Neuts Not Reportable 06/14/17 04:30 Hypogranular Neuts Not Reportable 06/14/17 04:30 Smudge Cells Not Reportable 06/14/17 04:30 Toxic Granulation Not Reportable 06/14/17 04:30 Toxic Vacuolation Not Reportable 06/14/17 04:30 Dohle Bodies Not Reportable 06/14/17 04:30 Pelger-Huet Anomaly Not Reportable 06/14/17 04:30 Sunita Rods Not Reportable 06/14/17 04:30 Platelet Estimate Consistent w auto 06/14/17 04:30 Clumped Platelets Not Reportable 06/14/17 04:30 Plt Clumps, EDTA Not Reportable 06/14/17 04:30 Large Platelets Not Reportable 06/14/17 04:30 Giant Platelets Not Reportable 06/14/17 04:30 Platelet Satelliting Not Reportable 06/14/17 04:30 Plt Morphology Comment Not Reportable 06/14/17 04:30 RBC Morphology Not Reportable 06/14/17 04:30 Dimorphic RBCs Not Reportable 06/14/17 04:30 Polychromasia 1+ 06/14/17 04:30 Hypochromasia 1+ 06/14/17 04:30 Poikilocytosis Not Reportable 06/14/17 04:30 Anisocytosis 1+ 06/14/17 04:30 Microcytosis Not Reportable 06/14/17 04:30 Macrocytosis Not Reportable 06/14/17 04:30 Spherocytes Not Reportable 06/14/17 04:30 Pappenheimer Bodies Not Reportable 06/14/17 04:30 Sickle Cells Not Reportable 06/14/17 04:30 Target Cells Not Reportable 06/14/17 04:30 Tear Drop Cells Not Reportable 06/14/17 04:30 Ovalocytes Not Reportable 06/14/17 04:30 Helmet Cells Not Reportable 06/14/17 04:30 Ramos-Holloway Bodies Not Reportable 06/14/17 04:30 [place] Rings Not Reportable 06/14/17 04:30 [place] Cells Not Reportable 06/14/17 04:30 Bite Cells Not Reportable 06/14/17 04:30 Crenated Cell Not Reportable 06/14/17 04:30 Elliptocytes Not Reportable 06/14/17 04:30 Acanthocytes (Spur) Not Reportable 06/14/17 04:30 Rouleaux Not Reportable 06/14/17 04:30 Hemoglobin C Crystals Not Reportable 06/14/17 04:30 Schistocytes Rare 06/14/17 04:30 Malaria parasites Not Reportable 06/14/17 04:30 Williams Bodies Not Reportable 06/14/17 04:30 Hem Pathologist Commnt No 06/14/17 04:30 PT 13.5 Sec. (12.2-14.9) 06/09/17 16:55 INR 0.98 (0.87-1.13) 06/09/17 16:55 APTT 29.9 Sec. (24.2-36.6) 06/09/17 16:55 POC ABG pH 7.556 (7.35-7.45) H 06/11/17 06:51 ABG pH 7.390 pH Units (7.350-7.450) 06/14/17 05:30 POC ABG pCO2 34.8 (35-45) L 06/11/17 06:51 ABG pCO2 41.8 mm Hg 06/14/17 05:30 POC ABG pO2 125 (80-105) H 06/11/17 06:51 ABG pO2 109.3 mm Hg (80.0-90.0) H 06/14/17 05:30 POC ABG HCO3 30.9 06/11/17 06:51 ABG HCO3 24.7 mmol/L (20.0-26.0) 06/14/17 05:30 POC ABG Total CO2 32 06/11/17 06:51 POC ABG O2 Sat 99 06/11/17 06:51 ABG O2 Saturation 97.9 % (95.0-99.0) 06/14/17 05:30 ABG O2 Content 14.6 (0.0-44) 06/14/17 05:30 POC ABG Base Excess 9 06/11/17 06:51 ABG Base Excess -0.2 mmol/L (-2.0-3.0) 06/14/17 05:30 ABG Hemoglobin 10.7 gm/dl (12.0-16.0) L 06/14/17 05:30 ABG Carboxyhemoglobin 1.6 % (0.0-5.0) 06/14/17 05:30 ABG Methemoglobin 0.5 % (0.0-1.5) 06/14/17 05:30 Oxyhemoglobin 95.9 % (95.0-99.0) 06/14/17 05:30 POC Sodium 137 mmol/L (138-146) L 06/04/17 16:22 POC Potassium 5.3 (3.5-4.9) H 06/04/17 16:22 POC Chloride 102 (98-109) 06/04/17 16:22 FiO2 35 % 06/14/17 05:30 Sodium 124 mmol/L (137-145) L 06/14/17 04:30 Potassium 4.6 mmol/L (3.6-5.0) 06/14/17 04:30 Chloride 84.3 mmol/L (98-107) L 06/14/17 04:30 Carbon Dioxide 22 mmol/L (22-30) 06/14/17 04:30 Anion Gap 22 mmol/L 06/14/17 04:30 POC BUN 45 mg/dl (8-26) H 06/04/17 16:22 BUN 86 mg/dL (7-17) H 06/14/17 04:30 Creatinine 9.0 mg/dL (0.7-1.2) H 06/14/17 04:30 Estimated GFR 5 ml/min 06/14/17 04:30 BUN/Creatinine Ratio 10 % 06/14/17 04:30 Glucose 106 mg/dL (65-100) H 06/14/17 04:30 POC Glucose 111 (70-105) H 06/14/17 05:49 Osmolality 316 Mosm/kg 06/12/17 07:30 Calcium 8.1 mg/dL (8.4-10.2) L 06/14/17 04:30 Phosphorus 4.50 mg/dL (2.5-4.5) 06/06/17 07:13 Magnesium 1.90 mg/dL (1.7-2.3) 06/06/17 07:13 Total Bilirubin 0.20 mg/dL (0.1-1.2) 06/06/17 07:13 AST 14 units/L (5-40) 06/06/17 07:13 ALT 15 units/L (7-56) 06/06/17 07:13 Alkaline Phosphatase 79 units/L (35-129) 06/06/17 07:13 Total Protein 5.7 g/dL (6.3-8.2) L 06/06/17 07:13 Albumin 3.3 g/dL (3.9-5) L 06/06/17 07:13 Albumin/Globulin Ratio 1.4 % 06/06/17 07:13 Triglycerides 132 mg/dL (2-149) 06/09/17 11:49 Cholesterol 171 mg/dL (50-199) 06/09/17 11:49 LDL Cholesterol Direct 95 mg/dL (50-130) 06/09/17 11:49 HDL Cholesterol 50 mg/dL (40-59) 06/09/17 11:49 Cholesterol/HDL Ratio 3.42 % 06/09/17 11:49 PTH Pre-Incision 641.9 (11.1-79.5) H 06/04/17 13:55 PTH Post-Excision 154.7 (11.1-79.5) H 06/04/17 13:55 PTH Intact Intraop 5 m Not Reportable 06/04/17 13:55
--- NOTE | 2017-06-14 08:54 | Progress Note ---
Assessment and Plan Impression: * ESRD * hypertension * s/p parathyroidectomy * Anemia in esrd * respiratory failure * Acute CVA * Hyponatremia Plan: * Continue hemodialysis q mwf * Serum calcium seems to be stable . Continue current calcium supplements as well as calcium bath to 3.5 with dialysis * Continue tums and calcitriol * iv calcium prn * uf as tolerated with hd * epogen with hd * strict i/os * follow up am lytes * Serum sodium noted to be dropping. Restrict free water intake. Change to normal saline if compatible Subjective Date of service: 06/14/17 Principal diagnosis: ARM/MV/Post hyperparathy./ESRD Interval history: Patient remains on the ventilator. Currently on 35% FiO2. Unresponsive. Objective - Vital Signs Vital signs: Vital Signs - 12hr 06/13/17 06/13/17 06/13/17 21:00 21:30 22:00 Temperature Pulse Rate 75 73 73 Pulse Rate [ From Monitor] Respiratory 22 18 18 Rate Blood Pressure 107/51 101/47 101/48 O2 Sat by Pulse 97 98 99 Oximetry 06/13/17 06/13/17 06/13/17 22:30 23:00 23:30 Temperature Pulse Rate 68 69 67 Pulse Rate [ From Monitor] Respiratory 18 18 19 Rate Blood Pressure 94/43 102/43 108/43 O2 Sat by Pulse 97 98 98 Oximetry 06/13/17 06/14/17 06/14/17 23:53 00:00 00:30 Temperature 97.9 F Pulse Rate 68 65 64 Pulse Rate [ From Monitor] Respiratory 18 18 Rate Blood Pressure 101/49 106/50 O2 Sat by Pulse 100 98 97 Oximetry 06/14/17 06/14/17 06/14/17 01:00 02:00 03:00 Temperature Pulse Rate 60 64 62 Pulse Rate [ From Monitor] Respiratory 18 18 18 Rate Blood Pressure 95/47 104/53 96/55 O2 Sat by Pulse 97 99 98 Oximetry 06/14/17 06/14/17 06/14/17 04:00 05:00 06:00 Temperature 99.0 F Pulse Rate 61 72 66 Pulse Rate [ From Monitor] Respiratory 18 21 18 Rate Blood Pressure 95/48 95/48 122/65 O2 Sat by Pulse 98 97 97 Oximetry 06/14/17 06/14/17 06/14/17 07:00 07:54 08:00 Temperature 98.4 F Pulse Rate 65 64 71 Pulse Rate [ 67 From Monitor] Respiratory 18 18 Rate Blood Pressure 108/60 108/60 108/60 O2 Sat by Pulse 96 98 97 Oximetry - General Appearance General appearance: well-developed, well-nourished, appears stated age, intubated EENT: PERRL, mucous membranes moist Neck: no JVD, no thyromegaly, other (incision noted in the anterior aspect of her neck) Respiratory: Present: Clear to Ascultation Cardiology: regular, normal heart rate, S1S2, no murmurs Gastrointestinal: normal, normoactive bowel sounds Integumentary: no rash, other (no edema. AV fistula in her left upper arm. Good bruit and thrill) - Lab 06/14/17 04:30 06/14/17 04:30 Most recent lab results ABG pH 7.390 pH Units (7.350-7.450) 06/14/17 05:30 ABG pCO2 41.8 mm Hg 06/14/17 05:30 ABG pO2 109.3 mm Hg (80.0-90.0) H 06/14/17 05:30 ABG HCO3 24.7 mmol/L (20.0-26.0) 06/14/17 05:30 ABG O2 Saturation 97.9 % (95.0-99.0) 06/14/17 05:30 Calcium 8.1 mg/dL (8.4-10.2) L 06/14/17 04:30 Phosphorus 4.50 mg/dL (2.5-4.5) 06/06/17 07:13 Magnesium 1.90 mg/dL (1.7-2.3) 06/06/17 07:13
[2017-06-14] MEDS: BABY ASPIRIN PO SCH (09:02)
[2017-06-14] MEDS: HEPARIN SUB-Q SCH ×2 (09:02→22:17)
[2017-06-14] MEDS: PEPCID PO SCH (09:02)
[2017-06-14] MEDS: ROCALTROL PO SCH (09:05)
--- NOTE | 2017-06-14 09:17 | Progress Note ---
Assessment and Plan 66 y/o female with post-op respiratory failure, likely from pulmonary edema and possible airway edema with end stage renal disease. 1. Will need trach and as I explained to sister, this would be an indefinite therapy. 2. Will ask surgeon if they prefer to place trach or if they wish for ENT to be consulted 3. No sedation 4. Follow up Neurology recs 5. Overall prognosis is guarded to poor CCT 31 minutes. Subjective Date of service: 06/14/17 Principal diagnosis: ARM/MV/Post hyperparathy./ESRD Interval history: Sister at bedside. Opens eyes to verbal stimuli. Does not follow commands. No sedation. Objective Vital Signs - 12hr 06/13/17 06/13/17 06/13/17 21:30 22:00 22:30 Temperature Pulse Rate 73 73 68 Pulse Rate [ From Monitor] Respiratory 18 18 18 Rate Blood Pressure 101/47 101/48 94/43 O2 Sat by Pulse 98 99 97 Oximetry 06/13/17 06/13/17 06/13/17 23:00 23:30 23:53 Temperature Pulse Rate 69 67 68 Pulse Rate [ From Monitor] Respiratory 18 19 Rate Blood Pressure 102/43 108/43 O2 Sat by Pulse 98 98 100 Oximetry 06/14/17 06/14/17 06/14/17 00:00 00:30 01:00 Temperature 97.9 F Pulse Rate 65 64 60 Pulse Rate [ From Monitor] Respiratory 18 18 18 Rate Blood Pressure 101/49 106/50 95/47 O2 Sat by Pulse 98 97 97 Oximetry 06/14/17 06/14/17 06/14/17 02:00 03:00 04:00 Temperature 99.0 F Pulse Rate 64 62 61 Pulse Rate [ From Monitor] Respiratory 18 18 18 Rate Blood Pressure 104/53 96/55 95/48 O2 Sat by Pulse 99 98 98 Oximetry 06/14/17 06/14/17 06/14/17 05:00 06:00 07:00 Temperature Pulse Rate 72 66 65 Pulse Rate [ From Monitor] Respiratory 21 18 18 Rate Blood Pressure 95/48 122/65 108/60 O2 Sat by Pulse 97 97 96 Oximetry 06/14/17 06/14/17 07:54 08:00 Temperature 98.4 F Pulse Rate 64 71 Pulse Rate [ 67 From Monitor] Respiratory 18 Rate Blood Pressure 108/60 108/60 O2 Sat by Pulse 98 97 Oximetry Constitutional: no acute distress, lethargic, other (intubated, some response to tactile stimulation otherwise nonresponsive) Eyes: non-icteric ENT: other (orally intubated) Neck: supple, no JVD, other (no stridor) Effort: normal Ascultation: Bilateral: clear, diminished breath sounds, rales, other (coarse BS bilaterally) Percussion: Bilateral: not dull Cardiovascular: regular rate and rhythm Gastrointestinal: normoactive bowel sounds, soft, non-tender, non-distended, other (obese) Integumentary: normal Extremities: no cyanosis, no edema, pink and warm, edema Neurologic: other (altered mentation, R-hemiparesis,GCS 3-4) Psychiatric: mood appropriate, affect normal CBC and BMP: 06/14/17 04:30 06/14/17 04:30 ABG, PT/INR, D-dimer: ABG POC ABG pH 7.556 (7.35-7.45) H 06/11/17 06:51 ABG pH 7.390 pH Units (7.350-7.450) 06/14/17 05:30 POC ABG pCO2 34.8 (35-45) L 06/11/17 06:51 ABG pCO2 41.8 mm Hg 06/14/17 05:30 POC ABG pO2 125 (80-105) H 06/11/17 06:51 ABG pO2 109.3 mm Hg (80.0-90.0) H 06/14/17 05:30 POC ABG HCO3 30.9 06/11/17 06:51 POC ABG Total CO2 32 06/11/17 06:51 POC ABG O2 Sat 99 06/11/17 06:51 ABG O2 Saturation 97.9 % (95.0-99.0) 06/14/17 05:30 PT/INR, D-dimer PT 13.5 Sec. (12.2-14.9) 06/09/17 16:55 INR 0.98 (0.87-1.13) 06/09/17 16:55 Abnormal lab findings: Abnormal Labs 06/04/17 06/04/17 06/04/17 00:01 12:50 13:55 WBC 11.4 H Hgb POC Hct MCV 76 L MCH 23 L RDW 18.5 H Seg Neuts % (Manual) 89.0 H Lymphocytes % (Manual) 6.0 L Monocytes % (Manual) Nucleated RBC % Seg Neutrophils # Man 10.1 H Lymphocytes # (Manual) 0.7 L Monocytes # (Manual) Eosinophils # (Manual) Basophils # (Manual) POC ABG pH ABG pH POC ABG pCO2 POC ABG pO2 ABG pO2 ABG O2 Saturation ABG Hemoglobin POC Sodium POC Potassium Sodium Potassium 5.1 H 5.2 H Chloride POC BUN BUN 48 H Creatinine 6.2 H Glucose POC Glucose Calcium Total Protein Albumin PTH Pre-Incision PTH Post-Excision 06/04/17 06/04/17 06/04/17 13:55 16:10 16:16 WBC Hgb POC Hct 37 L MCV MCH RDW Seg Neuts % (Manual) Lymphocytes % (Manual) Monocytes % (Manual) Nucleated RBC % Seg Neutrophils # Man Lymphocytes # (Manual) Monocytes # (Manual) Eosinophils # (Manual) Basophils # (Manual) POC ABG pH 7.306 L ABG pH POC ABG pCO2 58.7 H POC ABG pO2 338 H ABG pO2 ABG O2 Saturation ABG Hemoglobin POC Sodium 135 L POC Potassium 5.2 H Sodium Potassium Chloride POC BUN 44 H BUN Creatinine Glucose POC Glucose 183 H Calcium Total Protein Albumin PTH Pre-Incision 641.9 H PTH Post-Excision 154.7 H 06/04/17 06/04/17 06/04/17 16:22 20:44 21:29 WBC Hgb POC Hct MCV MCH RDW Seg Neuts % (Manual) Lymphocytes % (Manual) Monocytes % (Manual) Nucleated RBC % Seg Neutrophils # Man Lymphocytes # (Manual) Monocytes # (Manual) Eosinophils # (Manual) Basophils # (Manual) POC ABG pH 7.484 H ABG pH POC ABG pCO2 POC ABG pO2 ABG pO2 ABG O2 Saturation ABG Hemoglobin POC Sodium 137 L POC Potassium 5.3 H Sodium Potassium 5.2 H Chloride POC BUN 45 H BUN 51 H Creatinine 6.5 H Glucose 119 H POC Glucose 176 H Calcium Total Protein Albumin PTH Pre-Incision PTH Post-Excision 06/05/17 06/05/17 06/05/17 03:31 11:44 11:44 WBC 13.4 H Hgb POC Hct MCV 75 L MCH 23 L RDW 18.2 H Seg Neuts % (Manual) Lymphocytes % (Manual) Monocytes % (Manual) Nucleated RBC % Seg Neutrophils # Man Lymphocytes # (Manual) Monocytes # (Manual) Eosinophils # (Manual) Basophils # (Manual) POC ABG pH ABG pH POC ABG pCO2 POC ABG pO2 75 L ABG pO2 ABG O2 Saturation ABG Hemoglobin POC Sodium POC Potassium Sodium Potassium 5.8 H Chloride POC BUN BUN 56 H Creatinine 7.0 H Glucose 111 H POC Glucose Calcium 8.2 L Total Protein 6.2 L Albumin 3.1 L PTH Pre-Incision PTH Post-Excision 06/06/17 06/06/17 06/07/17 05:07 07:13 03:53 WBC Hgb POC Hct MCV MCH RDW Seg Neuts % (Manual) Lymphocytes % (Manual) Monocytes % (Manual) Nucleated RBC % Seg Neutrophils # Man Lymphocytes # (Manual) Monocytes # (Manual) Eosinophils # (Manual) Basophils # (Manual) POC ABG pH ABG pH POC ABG pCO2 POC ABG pO2 116 H 137 H ABG pO2 ABG O2 Saturation ABG Hemoglobin POC Sodium POC Potassium Sodium Potassium Chloride POC BUN BUN 32 H Creatinine 4.9 H Glucose 115 H POC Glucose Calcium 7.9 L Total Protein 5.7 L Albumin 3.3 L PTH Pre-Incision PTH Post-Excision 06/07/17 06/07/17 06/07/17 05:21 05:21 16:54 WBC Hgb POC Hct MCV 75 L MCH 24 L RDW 18.7 H Seg Neuts % (Manual) Lymphocytes % (Manual) Monocytes % (Manual) Nucleated RBC % Seg Neutrophils # Man Lymphocytes # (Manual) Monocytes # (Manual) Eosinophils # (Manual) Basophils # (Manual) POC ABG pH ABG pH POC ABG pCO2 POC ABG pO2 ABG pO2 ABG O2 Saturation ABG Hemoglobin POC Sodium POC Potassium Sodium Potassium 5.4 H Chloride POC BUN BUN 52 H Creatinine 6.2 H Glucose 107 H POC Glucose 110 H Calcium 8.0 L Total Protein Albumin PTH Pre-Incision PTH Post-Excision 06/07/17 06/07/17 06/08/17 17:38 23:32 04:00 WBC Hgb POC Hct MCV 77 L MCH 23 L RDW 18.3 H Seg Neuts % (Manual) 78.0 H Lymphocytes % (Manual) Monocytes % (Manual) Nucleated RBC % 3.0 H Seg Neutrophils # Man 7.8 H Lymphocytes # (Manual) Monocytes # (Manual) Eosinophils # (Manual) Basophils # (Manual) POC ABG pH 7.310 L ABG pH POC ABG pCO2 51.9 H POC ABG pO2 ABG pO2 ABG O2 Saturation ABG Hemoglobin POC Sodium POC Potassium Sodium Potassium Chloride POC BUN BUN Creatinine Glucose POC Glucose 63 L Calcium Total Protein Albumin PTH Pre-Incision PTH Post-Excision 06/08/17 06/08/17 06/08/17 04:00 10:51 11:25 WBC Hgb POC Hct MCV MCH RDW Seg Neuts % (Manual) Lymphocytes % (Manual) Monocytes % (Manual) Nucleated RBC % Seg Neutrophils # Man Lymphocytes # (Manual) Monocytes # (Manual) Eosinophils # (Manual) Basophils # (Manual) POC ABG pH 7.336 L ABG pH POC ABG pCO2 55.1 H POC ABG pO2 ABG pO2 ABG O2 Saturation ABG Hemoglobin POC Sodium POC Potassium Sodium Potassium Chloride 96.9 L POC BUN BUN 29 H Creatinine 4.6 H Glucose POC Glucose 108 H Calcium 8.3 L Total Protein Albumin PTH Pre-Incision PTH Post-Excision 06/08/17 06/09/17 06/09/17 14:22 11:42 11:42 WBC Hgb POC Hct MCV 76 L MCH 24 L RDW 18.3 H Seg Neuts % (Manual) 80.0 H Lymphocytes % (Manual) 10.0 L Monocytes % (Manual) Nucleated RBC % 2.0 H Seg Neutrophils # Man Lymphocytes # (Manual) 1.0 L Monocytes # (Manual) Eosinophils # (Manual) Basophils # (Manual) POC ABG pH ABG pH POC ABG pCO2 52.8 H POC ABG pO2 77 L ABG pO2 ABG O2 Saturation ABG Hemoglobin POC Sodium POC Potassium Sodium Potassium 5.4 H D Chloride 97.1 L POC BUN BUN 58 H Creatinine 6.6 H Glucose POC Glucose Calcium 7.2 L Total Protein Albumin PTH Pre-Incision PTH Post-Excision 06/09/17 06/10/17 06/10/17 12:04 03:29 03:29 WBC 13.7 H Hgb POC Hct MCV 77 L MCH 24 L RDW 17.9 H Seg Neuts % (Manual) 82.0 H Lymphocytes % (Manual) 7.0 L Monocytes % (Manual) Nucleated RBC % 6.0 H Seg Neutrophils # Man 11.2 H Lymphocytes # (Manual) 1.0 L Monocytes # (Manual) Eosinophils # (Manual) Basophils # (Manual) POC ABG pH ABG pH POC ABG pCO2 POC ABG pO2 ABG pO2 ABG O2 Saturation ABG Hemoglobin POC Sodium POC Potassium Sodium Potassium Chloride 94.2 L POC BUN BUN 32 H Creatinine 4.6 H Glucose 106 H POC Glucose 106 H Calcium 8.0 L Total Protein Albumin PTH Pre-Incision PTH Post-Excision 06/10/17 06/11/17 06/11/17 05:27 06:00 06:00 WBC 11.8 H Hgb POC Hct MCV 77 L MCH 24 L RDW 18.3 H Seg Neuts % (Manual) 88.0 H Lymphocytes % (Manual) 7.0 L Monocytes % (Manual) Nucleated RBC % 1.0 H Seg Neutrophils # Man 10.4 H Lymphocytes # (Manual) 0.8 L Monocytes # (Manual) Eosinophils # (Manual) Basophils # (Manual) POC ABG pH ABG pH POC ABG pCO2 POC ABG pO2 ABG pO2 ABG O2 Saturation ABG Hemoglobin POC Sodium POC Potassium Sodium Potassium Chloride POC BUN BUN 53 H Creatinine 6.0 H Glucose POC Glucose 106 H Calcium 6.3 L D Total Protein Albumin PTH Pre-Incision PTH Post-Excision 06/11/17 06/11/17 06/11/17 06:51 12:10 16:54 WBC Hgb POC Hct MCV MCH RDW Seg Neuts % (Manual) Lymphocytes % (Manual) Monocytes % (Manual) Nucleated RBC % Seg Neutrophils # Man Lymphocytes # (Manual) Monocytes # (Manual) Eosinophils # (Manual) Basophils # (Manual) POC ABG pH 7.556 H ABG pH POC ABG pCO2 34.8 L POC ABG pO2 125 H ABG pO2 ABG O2 Saturation ABG Hemoglobin POC Sodium POC Potassium Sodium Potassium Chloride POC BUN BUN Creatinine Glucose POC Glucose 115 H 106 H Calcium Total Protein Albumin PTH Pre-Incision PTH Post-Excision 06/11/17 06/12/17 06/12/17 20:20 00:06 04:20 WBC Hgb POC Hct MCV MCH RDW Seg Neuts % (Manual) Lymphocytes % (Manual) Monocytes % (Manual) Nucleated RBC % Seg Neutrophils # Man Lymphocytes # (Manual) Monocytes # (Manual) Eosinophils # (Manual) Basophils # (Manual) POC ABG pH ABG pH 7.512 H 7.514 H POC ABG pCO2 POC ABG pO2 ABG pO2 148.5 H 209.1 H ABG O2 Saturation 99.3 H ABG Hemoglobin POC Sodium POC Potassium Sodium Potassium Chloride POC BUN BUN Creatinine Glucose POC Glucose 108 H Calcium Total Protein Albumin PTH Pre-Incision PTH Post-Excision 06/12/17 06/12/17 06/12/17 05:24 05:30 05:30 WBC 14.3 H Hgb POC Hct MCV 75 L MCH 24 L RDW 18.5 H Seg Neuts % (Manual) 73.0 H Lymphocytes % (Manual) 6.0 L Monocytes % (Manual) 9.0 H Nucleated RBC % 1.0 H Seg Neutrophils # Man 10.4 H Lymphocytes # (Manual) 0.9 L Monocytes # (Manual) 1.3 H Eosinophils # (Manual) Basophils # (Manual) POC ABG pH ABG pH POC ABG pCO2 POC ABG pO2 ABG pO2 ABG O2 Saturation ABG Hemoglobin POC Sodium POC Potassium Sodium 131 L D Potassium Chloride 90.6 L POC BUN BUN 51 H Creatinine 6.5 H Glucose POC Glucose 109 H Calcium Total Protein Albumin PTH Pre-Incision PTH Post-Excision 06/12/17 06/13/17 06/13/17 11:46 04:15 04:55 WBC 17.9 H Hgb POC Hct MCV 75 L MCH 24 L RDW 18.5 H Seg Neuts % (Manual) 75.0 H Lymphocytes % (Manual) 6.0 L Monocytes % (Manual) 9.0 H Nucleated RBC % Seg Neutrophils # Man 13.4 H Lymphocytes # (Manual) 1.1 L Monocytes # (Manual) 1.6 H Eosinophils # (Manual) 0.5 H Basophils # (Manual) 0.2 H POC ABG pH ABG pH POC ABG pCO2 POC ABG pO2 ABG pO2 131.0 H ABG O2 Saturation ABG Hemoglobin 10.5 L POC Sodium POC Potassium Sodium Potassium Chloride POC BUN BUN Creatinine Glucose POC Glucose 116 H Calcium Total Protein Albumin PTH Pre-Incision PTH Post-Excision 06/13/17 06/13/17 06/14/17 04:55 17:23 04:30 WBC 17.8 H Hgb 9.7 L POC Hct MCV 76 L MCH 24 L RDW 18.3 H Seg Neuts % (Manual) 74.0 H Lymphocytes % (Manual) 6.0 L Monocytes % (Manual) 9.0 H Nucleated RBC % Seg Neutrophils # Man 13.2 H Lymphocytes # (Manual) 1.1 L Monocytes # (Manual) 1.6 H Eosinophils # (Manual) Basophils # (Manual) POC ABG pH ABG pH POC ABG pCO2 POC ABG pO2 ABG pO2 ABG O2 Saturation ABG Hemoglobin POC Sodium POC Potassium Sodium 128 L Potassium Chloride 88.9 L POC BUN BUN 73 H Creatinine 7.6 H Glucose 115 H POC Glucose 113 H Calcium 8.1 L Total Protein Albumin PTH Pre-Incision PTH Post-Excision 06/14/17 06/14/17 06/14/17 04:30 05:30 05:49 WBC Hgb POC Hct MCV MCH RDW Seg Neuts % (Manual) Lymphocytes % (Manual) Monocytes % (Manual) Nucleated RBC % Seg Neutrophils # Man Lymphocytes # (Manual) Monocytes # (Manual) Eosinophils # (Manual) Basophils # (Manual) POC ABG pH ABG pH POC ABG pCO2 POC ABG pO2 ABG pO2 109.3 H ABG O2 Saturation ABG Hemoglobin 10.7 L POC Sodium POC Potassium Sodium 124 L Potassium Chloride 84.3 L POC BUN BUN 86 H Creatinine 9.0 H Glucose 106 H POC Glucose 111 H Calcium 8.1 L Total Protein Albumin PTH Pre-Incision PTH Post-Excision
--- NOTE | 2017-06-14 13:25 | Progress Note ---
Assessment and Plan Assessment: Acute CVA / AMS - head CT showed acute stroke in MCA, no hemorrhage Thrombus in distal L ICA and MCA - per chart, neuro currently recommends against heparin gtt in setting of acute CVA and risk of conversion to hemorrhagic CVA. 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 BB and ACEI/ARB held in setting of hypotension. Consider ischemic evaluation for further eval of CMP etiology once medically stabilized - can be done as OP. Cont ASA and statin. Electrolyte management per nephrology. Currently stable cardiac status. The patient has been seen in conjunction with Dr. Bradley who agrees with the assessment and plan of care. Subjective Date of service: 06/14/17 Principal diagnosis: ARM/MV/Post hyperparathy./ESRD Interval history: Pt intubated. sister at bedside. Objective Last Vital Signs Temp 97.9 F 06/14/17 12:00 Pulse 68 06/14/17 13:15 Resp 20 06/14/17 13:00 BP 112/72 06/14/17 13:15 Pulse Ox 100 06/14/17 13:09 - Physical Examination General: Other (withdrawn, nonverbal) HEENT: Positive: PERRL, Mucus Membranes Moist Neck: Positive: neck supple, trachea midline Cardiac: Positive: Reg Rate and Rhythm, S1/S2 Lungs: Positive: Decreased Breath Sounds, Ventilated Respirations Neuro: Positive: Weakness (right-sided) Abdomen: Positive: Unremarkable. Negative: Tender Skin: Positive: Clear. Negative: Rash, Wound Musculoskeletal: No Fluid Collection, No Pain, Normal Range of Motion Extremities: Absent: edema - Labs and Meds CBC 06/14/17 Range/Units 04:30 WBC 17.8 H (4.5-11.0) K/mm3 RBC 4.13 (3.65-5.03) M/mm3 Hgb 9.7 L (10.1-14.3) gm/dl Hct 31.3 (30.3-42.9) % Plt Count 184 (140-440) K/mm3 Comprehensive Metabolic Panel 06/14/17 Range/Units 04:30 Sodium 124 L (137-145) mmol/L Potassium 4.6 (3.6-5.0) mmol/L Chloride 84.3 L (98-107) mmol/L Carbon Dioxide 22 (22-30) mmol/L BUN 86 H (7-17) mg/dL Creatinine 9.0 H (0.7-1.2) mg/dL Glucose 106 H (65-100) mg/dL Calcium 8.1 L (8.4-10.2) mg/dL - Imaging and Cardiology EKG: image reviewed Echo: report reviewed (LV mildly dilated, mild to moderate LVH, EF 40-45%, LA moderate to severely dilated, mild MR, mild AR, mild TR. ) - EKG Sinus rhythms and dysrhythmias: sinus rhythm
[2017-06-14] MEDS: PROCRIT IV PRN (14:00)
[2017-06-14] MEDS: NACL 0.9% 1000 ML 1,000 ML IV SCH (15:00)
[2017-06-15] MEDS: NACL 0.9% 1000 ML 1,000 ML IV SCH (01:53)
[2017-06-15 03:28] LABS: ABG Base Excess 2.5 mmol/L (-2.0-3.0); ABG HCO3 27.6 mmol/L (20.0-26.0); ABG Oxygen Saturation 98.1 % (95.0-99.0); ABG PCO2 44.9 mm Hg; ABG PH 7.406 pH Units (7.350-7.450); ABG PO2 115.7 mm Hg (80.0-90.0)
[2017-06-15] MEDS: PROAMATINE PO SCH ×3 (05:34→21:56)
[2017-06-15 07:28] LABS: Hematocrit 30.4 % (30.3-42.9); Hemoglobin 9.2 gm/dl (10.1-14.3); Mean Corpuscular HGB Conc 30 % (30-34); Mean Corpuscular Volume 77 fl (79-97); Platelet Count 199 K/mm3 (140-440); Red Blood Count 3.94 M/mm3 (3.65-5.03); Red Cell Distribution Width 18.8 % (13.2-15.2)
[2017-06-15 07:32] LABS: Mean Corpuscular Hemoglobin 23 pg (28-32); White Blood Count 21.4 K/mm3 (4.5-11.0)
[2017-06-15 07:35] LABS: Calcium 8.6 mg/dL (8.4-10.2); Chloride 91.5 mmol/L (98-107); Potassium 4.1 mmol/L (3.6-5.0)
[2017-06-15 08:20] LABS: Basophils % (Manual) 0 % (0.0-1.8); Blastocytes % (Manual) 0 %; Eosinophils % (Manual) 0 % (0.0-4.3)
[2017-06-15 08:21] LABS: Diff Status Complete; Hypochromasia 1+; Microcytosis 1+; Platelet Estimate Consistent w Auto; Schistocytes Few; Target Cells Few
[2017-06-15] MEDS: TUMS PO SCH ×3 (08:24→20:05)
--- NOTE | 2017-06-15 08:57 | XRay Report ---
Single view chest: Compared to 06/14/17. History: Followup respiratory failure. Findings: Cardiomegaly. Stable support system. Trachea is midline. No consolidation, pneumothorax or pleural effusion. Left CP angle obscured by enlarged heart. Impression: No acute cardiopulmonary findings.
[2017-06-15] MEDS: ROCALTROL PO SCH (09:07)
[2017-06-15] MEDS: PEPCID PO SCH (09:07)
[2017-06-15] MEDS: BABY ASPIRIN PO SCH (09:07)
[2017-06-15] MEDS: HEPARIN SUB-Q SCH ×2 (09:08→21:56)
--- NOTE | 2017-06-15 09:10 | Progress Note ---
Assessment and Plan Impression: * ESRD * hypertension * s/p parathyroidectomy * Anemia in esrd * respiratory failure * Acute CVA * Hyponatremia Plan: * Patient had infiltration of her AV access yesterday and received partial treatment. Her electrolytes are acceptable. She'll rest her fistula today and plan to dialyze her again tomorrow * Continue hemodialysis q mwf * Serum calcium seems to be stable . Continue current calcium supplements as well as calcium bath to 3.5 with dialysis * Continue tums and calcitriol * iv calcium prn * uf as tolerated with hd * epogen with hd * strict i/os * follow up am lytes * Serum sodium noted to be better. Continue free water restriction . Serum osmolarity however is 312. Most likely secondary to mannitol which has been discontinued Subjective Date of service: 06/15/17 Principal diagnosis: ARM/MV/Post hyperparathy./ESRD Interval history: Patient remains on the ventilator. Currently on 30% FiO2. She had hemodialysis yesterday. Her access however had infiltrated and dialysis had to be cut short. Objective - Vital Signs Vital signs: Vital Signs - 12hr 06/14/17 06/14/17 06/14/17 22:00 22:05 23:00 Temperature Pulse Rate 69 68 68 Pulse Rate [ From Monitor] Respiratory 18 18 18 Rate Blood Pressure 96/50 96/50 91/50 O2 Sat by Pulse 99 97 Oximetry 06/14/17 06/14/17 06/15/17 23:09 23:30 00:00 Temperature 98.7 F Pulse Rate 68 69 Pulse Rate [ 69 From Monitor] Respiratory 20 Rate Blood Pressure 94/48 93/55 O2 Sat by Pulse 99 100 Oximetry 06/15/17 06/15/17 06/15/17 01:00 02:00 03:00 Temperature Pulse Rate 68 68 70 Pulse Rate [ From Monitor] Respiratory 18 17 18 Rate Blood Pressure 91/50 102/58 105/60 O2 Sat by Pulse 100 100 Oximetry 06/15/17 06/15/17 06/15/17 03:17 03:26 04:00 Temperature 99.6 F Pulse Rate 69 72 Pulse Rate [ 67 From Monitor] Respiratory 20 Rate Blood Pressure 109/55 99/52 O2 Sat by Pulse 99 100 Oximetry 06/15/17 06/15/17 06/15/17 05:00 06:00 07:00 Temperature Pulse Rate 71 70 71 Pulse Rate [ From Monitor] Respiratory 19 18 18 Rate Blood Pressure 102/57 99/51 80/42 O2 Sat by Pulse 99 99 99 Oximetry - General Appearance General appearance: well-developed, well-nourished, appears stated age, intubated EENT: PERRL, mucous membranes moist Neck: no JVD, no thyromegaly, no carotid bruit, supple, other (incision noted in the anterior aspect of her neck) Respiratory: Present: Clear to Ascultation Cardiology: regular, normal heart rate, S1S2, no murmurs Gastrointestinal: normal, normoactive bowel sounds Integumentary: no rash, warm and dry, other (AV fistula left upper arm. Good bruit and thrill) - Lab 06/15/17 06:00 06/15/17 06:00 Most recent lab results ABG pH 7.406 pH Units (7.350-7.450) 06/15/17 Unknown ABG pCO2 44.9 mm Hg 06/15/17 Unknown ABG pO2 115.7 mm Hg (80.0-90.0) H 06/15/17 Unknown ABG HCO3 27.6 mmol/L (20.0-26.0) H 06/15/17 Unknown ABG O2 Saturation 98.1 % (95.0-99.0) 06/15/17 Unknown Calcium 8.6 mg/dL (8.4-10.2) 06/15/17 06:00 Phosphorus 4.50 mg/dL (2.5-4.5) 06/06/17 07:13 Magnesium 1.90 mg/dL (1.7-2.3) 06/06/17 07:13
--- NOTE | 2017-06-15 09:29 | Progress Note ---
Assessment and Plan 66 y/o female with post-op respiratory failure, likely from pulmonary edema and possible airway edema with end stage renal disease. 1. Will need trach and as I explained to sister, this would be an indefinite therapy. Explained to son at bedside this am. He is going to speak with his aunt who is a nurse again. They will let me know in regards to trach. 2. Will ask surgeon if they prefer to place trach or if they wish for ENT to be consulted 3. No sedation 4. Follow up Neurology recs 5. Overall prognosis is guarded to poor 6. HD per renal CCT 31 minutes. Subjective Date of service: 06/15/17 Principal diagnosis: ARM/MV/Post hyperparathy./ESRD Interval history: No acute events. Opens eyes at times but does not follow commands. Son at bedside and I discussed trach with him. Objective Vital Signs - 12hr 06/14/17 06/14/17 06/14/17 22:00 22:05 23:00 Temperature Pulse Rate 69 68 68 Pulse Rate [ From Monitor] Respiratory 18 18 18 Rate Blood Pressure 96/50 96/50 91/50 O2 Sat by Pulse 99 97 Oximetry 06/14/17 06/14/17 06/15/17 23:09 23:30 00:00 Temperature 98.7 F Pulse Rate 68 69 Pulse Rate [ 69 From Monitor] Respiratory 20 Rate Blood Pressure 94/48 93/55 O2 Sat by Pulse 99 100 Oximetry 06/15/17 06/15/17 06/15/17 01:00 02:00 03:00 Temperature Pulse Rate 68 68 70 Pulse Rate [ From Monitor] Respiratory 18 17 18 Rate Blood Pressure 91/50 102/58 105/60 O2 Sat by Pulse 100 100 Oximetry 06/15/17 06/15/17 06/15/17 03:17 03:26 04:00 Temperature 99.6 F Pulse Rate 69 72 Pulse Rate [ 67 From Monitor] Respiratory 20 Rate Blood Pressure 109/55 99/52 O2 Sat by Pulse 99 100 Oximetry 06/15/17 06/15/17 06/15/17 05:00 06:00 07:00 Temperature Pulse Rate 71 70 71 Pulse Rate [ From Monitor] Respiratory 19 18 18 Rate Blood Pressure 102/57 99/51 80/42 O2 Sat by Pulse 99 99 99 Oximetry 06/15/17 08:00 Temperature 98.3 F Pulse Rate Pulse Rate [ From Monitor] Respiratory Rate Blood Pressure O2 Sat by Pulse Oximetry Constitutional: no acute distress, other (intubated, some response to tactile stimulation otherwise nonresponsive) Eyes: non-icteric ENT: other (orally intubated) Neck: supple, no JVD, other (no stridor) Effort: normal Ascultation: Bilateral: clear, diminished breath sounds, rales, other (coarse BS bilaterally) Percussion: Bilateral: not dull Cardiovascular: regular rate and rhythm Gastrointestinal: normoactive bowel sounds, soft, non-tender, non-distended, other (obese) Integumentary: normal Extremities: no cyanosis, no edema, pink and warm, edema Neurologic: other (altered mentation, R-hemiparesis,GCS 3-4) Psychiatric: mood appropriate, affect normal CBC and BMP: 06/15/17 06:00 06/15/17 06:00 ABG, PT/INR, D-dimer: ABG POC ABG pH 7.556 (7.35-7.45) H 06/11/17 06:51 ABG pH 7.406 pH Units (7.350-7.450) 06/15/17 Unknown POC ABG pCO2 34.8 (35-45) L 06/11/17 06:51 ABG pCO2 44.9 mm Hg 06/15/17 Unknown POC ABG pO2 125 (80-105) H 06/11/17 06:51 ABG pO2 115.7 mm Hg (80.0-90.0) H 06/15/17 Unknown POC ABG HCO3 30.9 06/11/17 06:51 POC ABG Total CO2 32 06/11/17 06:51 POC ABG O2 Sat 99 06/11/17 06:51 ABG O2 Saturation 98.1 % (95.0-99.0) 06/15/17 Unknown PT/INR, D-dimer PT 13.5 Sec. (12.2-14.9) 06/09/17 16:55 INR 0.98 (0.87-1.13) 06/09/17 16:55 Abnormal lab findings: Abnormal Labs 06/04/17 06/04/17 06/04/17 00:01 12:50 13:55 WBC 11.4 H Hgb POC Hct MCV 76 L MCH 23 L RDW 18.5 H Seg Neuts % (Manual) 89.0 H Lymphocytes % (Manual) 6.0 L Monocytes % (Manual) Nucleated RBC % Seg Neutrophils # Man 10.1 H Lymphocytes # (Manual) 0.7 L Monocytes # (Manual) Eosinophils # (Manual) Basophils # (Manual) POC ABG pH ABG pH POC ABG pCO2 POC ABG pO2 ABG pO2 ABG HCO3 ABG O2 Saturation ABG Hemoglobin POC Sodium POC Potassium Sodium Potassium 5.1 H 5.2 H Chloride POC BUN BUN 48 H Creatinine 6.2 H Glucose POC Glucose Calcium Total Protein Albumin PTH Pre-Incision PTH Post-Excision 06/04/17 06/04/17 06/04/17 13:55 16:10 16:16 WBC Hgb POC Hct 37 L MCV MCH RDW Seg Neuts % (Manual) Lymphocytes % (Manual) Monocytes % (Manual) Nucleated RBC % Seg Neutrophils # Man Lymphocytes # (Manual) Monocytes # (Manual) Eosinophils # (Manual) Basophils # (Manual) POC ABG pH 7.306 L ABG pH POC ABG pCO2 58.7 H POC ABG pO2 338 H ABG pO2 ABG HCO3 ABG O2 Saturation ABG Hemoglobin POC Sodium 135 L POC Potassium 5.2 H Sodium Potassium Chloride POC BUN 44 H BUN Creatinine Glucose POC Glucose 183 H Calcium Total Protein Albumin PTH Pre-Incision 641.9 H PTH Post-Excision 154.7 H 06/04/17 06/04/17 06/04/17 16:22 20:44 21:29 WBC Hgb POC Hct MCV MCH RDW Seg Neuts % (Manual) Lymphocytes % (Manual) Monocytes % (Manual) Nucleated RBC % Seg Neutrophils # Man Lymphocytes # (Manual) Monocytes # (Manual) Eosinophils # (Manual) Basophils # (Manual) POC ABG pH 7.484 H ABG pH POC ABG pCO2 POC ABG pO2 ABG pO2 ABG HCO3 ABG O2 Saturation ABG Hemoglobin POC Sodium 137 L POC Potassium 5.3 H Sodium Potassium 5.2 H Chloride POC BUN 45 H BUN 51 H Creatinine 6.5 H Glucose 119 H POC Glucose 176 H Calcium Total Protein Albumin PTH Pre-Incision PTH Post-Excision 06/05/17 06/05/17 06/05/17 03:31 11:44 11:44 WBC 13.4 H Hgb POC Hct MCV 75 L MCH 23 L RDW 18.2 H Seg Neuts % (Manual) Lymphocytes % (Manual) Monocytes % (Manual) Nucleated RBC % Seg Neutrophils # Man Lymphocytes # (Manual) Monocytes # (Manual) Eosinophils # (Manual) Basophils # (Manual) POC ABG pH ABG pH POC ABG pCO2 POC ABG pO2 75 L ABG pO2 ABG HCO3 ABG O2 Saturation ABG Hemoglobin POC Sodium POC Potassium Sodium Potassium 5.8 H Chloride POC BUN BUN 56 H Creatinine 7.0 H Glucose 111 H POC Glucose Calcium 8.2 L Total Protein 6.2 L Albumin 3.1 L PTH Pre-Incision PTH Post-Excision 06/06/17 06/06/17 06/07/17 05:07 07:13 03:53 WBC Hgb POC Hct MCV MCH RDW Seg Neuts % (Manual) Lymphocytes % (Manual) Monocytes % (Manual) Nucleated RBC % Seg Neutrophils # Man Lymphocytes # (Manual) Monocytes # (Manual) Eosinophils # (Manual) Basophils # (Manual) POC ABG pH ABG pH POC ABG pCO2 POC ABG pO2 116 H 137 H ABG pO2 ABG HCO3 ABG O2 Saturation ABG Hemoglobin POC Sodium POC Potassium Sodium Potassium Chloride POC BUN BUN 32 H Creatinine 4.9 H Glucose 115 H POC Glucose Calcium 7.9 L Total Protein 5.7 L Albumin 3.3 L PTH Pre-Incision PTH Post-Excision 06/07/17 06/07/17 06/07/17 05:21 05:21 16:54 WBC Hgb POC Hct MCV 75 L MCH 24 L RDW 18.7 H Seg Neuts % (Manual) Lymphocytes % (Manual) Monocytes % (Manual) Nucleated RBC % Seg Neutrophils # Man Lymphocytes # (Manual) Monocytes # (Manual) Eosinophils # (Manual) Basophils # (Manual) POC ABG pH ABG pH POC ABG pCO2 POC ABG pO2 ABG pO2 ABG HCO3 ABG O2 Saturation ABG Hemoglobin POC Sodium POC Potassium Sodium Potassium 5.4 H Chloride POC BUN BUN 52 H Creatinine 6.2 H Glucose 107 H POC Glucose 110 H Calcium 8.0 L Total Protein Albumin PTH Pre-Incision PTH Post-Excision 06/07/17 06/07/17 06/08/17 17:38 23:32 04:00 WBC Hgb POC Hct MCV 77 L MCH 23 L RDW 18.3 H Seg Neuts % (Manual) 78.0 H Lymphocytes % (Manual) Monocytes % (Manual) Nucleated RBC % 3.0 H Seg Neutrophils # Man 7.8 H Lymphocytes # (Manual) Monocytes # (Manual) Eosinophils # (Manual) Basophils # (Manual) POC ABG pH 7.310 L ABG pH POC ABG pCO2 51.9 H POC ABG pO2 ABG pO2 ABG HCO3 ABG O2 Saturation ABG Hemoglobin POC Sodium POC Potassium Sodium Potassium Chloride POC BUN BUN Creatinine Glucose POC Glucose 63 L Calcium Total Protein Albumin PTH Pre-Incision PTH Post-Excision 06/08/17 06/08/17 06/08/17 04:00 10:51 11:25 WBC Hgb POC Hct MCV MCH RDW Seg Neuts % (Manual) Lymphocytes % (Manual) Monocytes % (Manual) Nucleated RBC % Seg Neutrophils # Man Lymphocytes # (Manual) Monocytes # (Manual) Eosinophils # (Manual) Basophils # (Manual) POC ABG pH 7.336 L ABG pH POC ABG pCO2 55.1 H POC ABG pO2 ABG pO2 ABG HCO3 ABG O2 Saturation ABG Hemoglobin POC Sodium POC Potassium Sodium Potassium Chloride 96.9 L POC BUN BUN 29 H Creatinine 4.6 H Glucose POC Glucose 108 H Calcium 8.3 L Total Protein Albumin PTH Pre-Incision PTH Post-Excision 06/08/17 06/09/17 06/09/17 14:22 11:42 11:42 WBC Hgb POC Hct MCV 76 L MCH 24 L RDW 18.3 H Seg Neuts % (Manual) 80.0 H Lymphocytes % (Manual) 10.0 L Monocytes % (Manual) Nucleated RBC % 2.0 H Seg Neutrophils # Man Lymphocytes # (Manual) 1.0 L Monocytes # (Manual) Eosinophils # (Manual) Basophils # (Manual) POC ABG pH ABG pH POC ABG pCO2 52.8 H POC ABG pO2 77 L ABG pO2 ABG HCO3 ABG O2 Saturation ABG Hemoglobin POC Sodium POC Potassium Sodium Potassium 5.4 H D Chloride 97.1 L POC BUN BUN 58 H Creatinine 6.6 H Glucose POC Glucose Calcium 7.2 L Total Protein Albumin PTH Pre-Incision PTH Post-Excision 06/09/17 06/10/17 06/10/17 12:04 03:29 03:29 WBC 13.7 H Hgb POC Hct MCV 77 L MCH 24 L RDW 17.9 H Seg Neuts % (Manual) 82.0 H Lymphocytes % (Manual) 7.0 L Monocytes % (Manual) Nucleated RBC % 6.0 H Seg Neutrophils # Man 11.2 H Lymphocytes # (Manual) 1.0 L Monocytes # (Manual) Eosinophils # (Manual) Basophils # (Manual) POC ABG pH ABG pH POC ABG pCO2 POC ABG pO2 ABG pO2 ABG HCO3 ABG O2 Saturation ABG Hemoglobin POC Sodium POC Potassium Sodium Potassium Chloride 94.2 L POC BUN BUN 32 H Creatinine 4.6 H Glucose 106 H POC Glucose 106 H Calcium 8.0 L Total Protein Albumin PTH Pre-Incision PTH Post-Excision 06/10/17 06/11/17 06/11/17 05:27 06:00 06:00 WBC 11.8 H Hgb POC Hct MCV 77 L MCH 24 L RDW 18.3 H Seg Neuts % (Manual) 88.0 H Lymphocytes % (Manual) 7.0 L Monocytes % (Manual) Nucleated RBC % 1.0 H Seg Neutrophils # Man 10.4 H Lymphocytes # (Manual) 0.8 L Monocytes # (Manual) Eosinophils # (Manual) Basophils # (Manual) POC ABG pH ABG pH POC ABG pCO2 POC ABG pO2 ABG pO2 ABG HCO3 ABG O2 Saturation ABG Hemoglobin POC Sodium POC Potassium Sodium Potassium Chloride POC BUN BUN 53 H Creatinine 6.0 H Glucose POC Glucose 106 H Calcium 6.3 L D Total Protein Albumin PTH Pre-Incision PTH Post-Excision 06/11/17 06/11/17 06/11/17 06:51 12:10 16:54 WBC Hgb POC Hct MCV MCH RDW Seg Neuts % (Manual) Lymphocytes % (Manual) Monocytes % (Manual) Nucleated RBC % Seg Neutrophils # Man Lymphocytes # (Manual) Monocytes # (Manual) Eosinophils # (Manual) Basophils # (Manual) POC ABG pH 7.556 H ABG pH POC ABG pCO2 34.8 L POC ABG pO2 125 H ABG pO2 ABG HCO3 ABG O2 Saturation ABG Hemoglobin POC Sodium POC Potassium Sodium Potassium Chloride POC BUN BUN Creatinine Glucose POC Glucose 115 H 106 H Calcium Total Protein Albumin PTH Pre-Incision PTH Post-Excision 06/11/17 06/12/17 06/12/17 20:20 00:06 04:20 WBC Hgb POC Hct MCV MCH RDW Seg Neuts % (Manual) Lymphocytes % (Manual) Monocytes % (Manual) Nucleated RBC % Seg Neutrophils # Man Lymphocytes # (Manual) Monocytes # (Manual) Eosinophils # (Manual) Basophils # (Manual) POC ABG pH ABG pH 7.512 H 7.514 H POC ABG pCO2 POC ABG pO2 ABG pO2 148.5 H 209.1 H ABG HCO3 ABG O2 Saturation 99.3 H ABG Hemoglobin POC Sodium POC Potassium Sodium Potassium Chloride POC BUN BUN Creatinine Glucose POC Glucose 108 H Calcium Total Protein Albumin PTH Pre-Incision PTH Post-Excision 06/12/17 06/12/17 06/12/17 05:24 05:30 05:30 WBC 14.3 H Hgb POC Hct MCV 75 L MCH 24 L RDW 18.5 H Seg Neuts % (Manual) 73.0 H Lymphocytes % (Manual) 6.0 L Monocytes % (Manual) 9.0 H Nucleated RBC % 1.0 H Seg Neutrophils # Man 10.4 H Lymphocytes # (Manual) 0.9 L Monocytes # (Manual) 1.3 H Eosinophils # (Manual) Basophils # (Manual) POC ABG pH ABG pH POC ABG pCO2 POC ABG pO2 ABG pO2 ABG HCO3 ABG O2 Saturation ABG Hemoglobin POC Sodium POC Potassium Sodium 131 L D Potassium Chloride 90.6 L POC BUN BUN 51 H Creatinine 6.5 H Glucose POC Glucose 109 H Calcium Total Protein Albumin PTH Pre-Incision PTH Post-Excision 06/12/17 06/13/17 06/13/17 11:46 04:15 04:55 WBC 17.9 H Hgb POC Hct MCV 75 L MCH 24 L RDW 18.5 H Seg Neuts % (Manual) 75.0 H Lymphocytes % (Manual) 6.0 L Monocytes % (Manual) 9.0 H Nucleated RBC % Seg Neutrophils # Man 13.4 H Lymphocytes # (Manual) 1.1 L Monocytes # (Manual) 1.6 H Eosinophils # (Manual) 0.5 H Basophils # (Manual) 0.2 H POC ABG pH ABG pH POC ABG pCO2 POC ABG pO2 ABG pO2 131.0 H ABG HCO3 ABG O2 Saturation ABG Hemoglobin 10.5 L POC Sodium POC Potassium Sodium Potassium Chloride POC BUN BUN Creatinine Glucose POC Glucose 116 H Calcium Total Protein Albumin PTH Pre-Incision PTH Post-Excision 06/13/17 06/13/17 06/14/17 04:55 17:23 04:30 WBC 17.8 H Hgb 9.7 L POC Hct MCV 76 L MCH 24 L RDW 18.3 H Seg Neuts % (Manual) 74.0 H Lymphocytes % (Manual) 6.0 L Monocytes % (Manual) 9.0 H Nucleated RBC % Seg Neutrophils # Man 13.2 H Lymphocytes # (Manual) 1.1 L Monocytes # (Manual) 1.6 H Eosinophils # (Manual) Basophils # (Manual) POC ABG pH ABG pH POC ABG pCO2 POC ABG pO2 ABG pO2 ABG HCO3 ABG O2 Saturation ABG Hemoglobin POC Sodium POC Potassium Sodium 128 L Potassium Chloride 88.9 L POC BUN BUN 73 H Creatinine 7.6 H Glucose 115 H POC Glucose 113 H Calcium 8.1 L Total Protein Albumin PTH Pre-Incision PTH Post-Excision 06/14/17 06/14/17 06/14/17 04:30 05:30 05:49 WBC Hgb POC Hct MCV MCH RDW Seg Neuts % (Manual) Lymphocytes % (Manual) Monocytes % (Manual) Nucleated RBC % Seg Neutrophils # Man Lymphocytes # (Manual) Monocytes # (Manual) Eosinophils # (Manual) Basophils # (Manual) POC ABG pH ABG pH POC ABG pCO2 POC ABG pO2 ABG pO2 109.3 H ABG HCO3 ABG O2 Saturation ABG Hemoglobin 10.7 L POC Sodium POC Potassium Sodium 124 L Potassium Chloride 84.3 L POC BUN BUN 86 H Creatinine 9.0 H Glucose 106 H POC Glucose 111 H Calcium 8.1 L Total Protein Albumin PTH Pre-Incision PTH Post-Excision 06/14/17 06/14/17 06/14/17 12:27 16:05 23:35 WBC Hgb POC Hct MCV MCH RDW Seg Neuts % (Manual) Lymphocytes % (Manual) Monocytes % (Manual) Nucleated RBC % Seg Neutrophils # Man Lymphocytes # (Manual) Monocytes # (Manual) Eosinophils # (Manual) Basophils # (Manual) POC ABG pH ABG pH POC ABG pCO2 POC ABG pO2 ABG pO2 ABG HCO3 ABG O2 Saturation ABG Hemoglobin POC Sodium POC Potassium Sodium Potassium Chloride POC BUN BUN Creatinine Glucose POC Glucose 139 H 133 H 147 H Calcium Total Protein Albumin PTH Pre-Incision PTH Post-Excision 06/15/17 06/15/17 06/15/17 05:05 06:00 06:00 WBC 21.4 H Hgb 9.2 L POC Hct MCV 77 L MCH 23 L RDW 18.8 H Seg Neuts % (Manual) 86.0 H Lymphocytes % (Manual) 2.0 L Monocytes % (Manual) Nucleated RBC % 1.0 H Seg Neutrophils # Man 18.4 H Lymphocytes # (Manual) 0.4 L Monocytes # (Manual) 1.5 H Eosinophils # (Manual) Basophils # (Manual) POC ABG pH ABG pH POC ABG pCO2 POC ABG pO2 ABG pO2 ABG HCO3 ABG O2 Saturation ABG Hemoglobin POC Sodium POC Potassium Sodium 132 L D Potassium Chloride 91.5 L POC BUN BUN 59 H Creatinine 6.6 H Glucose 116 H POC Glucose 145 H Calcium Total Protein Albumin PTH Pre-Incision PTH Post-Excision 06/15/17 Unknown WBC Hgb POC Hct MCV MCH RDW Seg Neuts % (Manual) Lymphocytes % (Manual) Monocytes % (Manual) Nucleated RBC % Seg Neutrophils # Man Lymphocytes # (Manual) Monocytes # (Manual) Eosinophils # (Manual) Basophils # (Manual) POC ABG pH ABG pH POC ABG pCO2 POC ABG pO2 ABG pO2 115.7 H ABG HCO3 27.6 H ABG O2 Saturation ABG Hemoglobin 9.2 L POC Sodium POC Potassium Sodium Potassium Chloride POC BUN BUN Creatinine Glucose POC Glucose Calcium Total Protein Albumin PTH Pre-Incision PTH Post-Excision
--- NOTE | 2017-06-15 11:22 | Progress Note ---
Assessment and Plan Assessment: Acute CVA / AMS - head CT showed acute stroke in MCA, no hemorrhage Thrombus in distal L ICA and MCA - per chart, neuro currently recommends against heparin gtt in setting of acute CVA and risk of conversion to hemorrhagic CVA. Hyperparathyroidism, s/p subtotal parathyroidectomy on 06/04/2017 CMP - EF 40-45%; no current clinical evidence of acute heart failure Acute respiratory failure / Laryngeal edema/stridor - for possible trach per pulmonary HTN ESRD on HD Hyperkalemia - improved Hypocalcemia - improved Leukocytosis - pt with intermittent low grade fever; CXR with NAF Morbid obesity History of breast cancer status post mastectomy Plan: Cont present cardiac regimen. BB and ACEI/ARB held in setting of hypotension. Consider vasopressor support if necessary to maintain MAP >60mmHg. Cont ASA and statin. For possible trach per pulmonary. Consider blood cultures per primary. Currently stable cardiac status. The patient has been seen in conjunction with Dr. Bradley who agrees with the assessment and plan of care. Subjective Date of service: 06/15/17 Principal diagnosis: ARM/MV/Post hyperparathy./ESRD Interval history: Pt remains intubated. No acute events. Opens eyes at times but does not follow commands. Son at bedside. BPs hypotensive. Objective Last Vital Signs Temp 98.3 F 06/15/17 08:00 Pulse 60 06/15/17 10:30 Resp 18 06/15/17 10:30 BP 86/45 06/15/17 10:30 Pulse Ox 96 06/15/17 10:30 - Physical Examination General: Other (intubated, nonresponsive) HEENT: Positive: PERRL, Mucus Membranes Moist Neck: Positive: neck supple, trachea midline Cardiac: Positive: Reg Rate and Rhythm, S1/S2 Lungs: Positive: Decreased Breath Sounds, Ventilated Respirations Neuro: Positive: Weakness (right-sided), Other (intubated, nonresponsive) Abdomen: Positive: Unremarkable. Negative: Tender Skin: Positive: Clear. Negative: Rash, Wound Musculoskeletal: No Fluid Collection, No Pain, Normal Range of Motion Extremities: Absent: edema - Labs and Meds CBC 06/15/17 Range/Units 06:00 WBC 21.4 H (4.5-11.0) K/mm3 RBC 3.94 (3.65-5.03) M/mm3 Hgb 9.2 L (10.1-14.3) gm/dl Hct 30.4 (30.3-42.9) % Plt Count 199 (140-440) K/mm3 Comprehensive Metabolic Panel 06/15/17 Range/Units 06:00 Sodium 132 L D (137-145) mmol/L Potassium 4.1 (3.6-5.0) mmol/L Chloride 91.5 L (98-107) mmol/L Carbon Dioxide 27 (22-30) mmol/L BUN 59 H (7-17) mg/dL Creatinine 6.6 H (0.7-1.2) mg/dL Glucose 116 H (65-100) mg/dL Calcium 8.6 (8.4-10.2) mg/dL - Imaging and Cardiology EKG: image reviewed Echo: report reviewed (LV mildly dilated, mild to moderate LVH, EF 40-45%, LA moderate to severely dilated, mild MR, mild AR, mild TR. ) - EKG Sinus rhythms and dysrhythmias: sinus rhythm
[2017-06-15] MEDS ORDERED: NACL 0.9% 500 ML 500 ML IV ONE (11:28)
--- NOTE | 2017-06-15 13:52 | Progress Note ---
Assessment and Plan Assessment and plan: 66-year-old female patient significant past medical history of hypertension and obstructive sleep apnea, ESRD on hemodialysis, breast cancer status post mastectomy underwent elective total parathyroidectomy and was admitted to ICU with respiratory failure requiring intubation, she unfortunately a stroke Acute left MCA stroke with right-sided weakness - Neurology consult appreciated -MR brain showed large left MCA acute infarct - on aspirin and statin - Cardiology consulted to rule out cardiac cause of stroke - Vascular surgery consulted no intervention needed - NO heparin GTT for the thrombus because of risk of hemorrhagic transformation -neuro input appreciated, trying mannitol to decrease IC edema Acute hypoxic respiratory failure on MV > 96 hours - re-intubated, continue vent and planned for trache, awaiting consent from family Metabolic Enchephalopathy -due to CVA and IC edema, imrpoving -continue mannitol Status post subtotal parathyroidectomy/Hypocalcemia - Continue postop care per surgery - continue to replete calcium as needed End-stage renal disease on hemodialysis - Continue hemodialysis as scheduled per nephrology Hyperkalemia -improved with HD Hypertension - Continue When necessary medication History of breast cancer status post mastectomy - Stable Morbid obesity with BMI of 47.8, - Nutrition input appreciated Moderate malnutrition -continue tube feeds Hyponatremia -reduce free water via G tube, should correct with HD -NS ordered The high probability of a clinically significant, sudden or life threatening deterioration of the [respiratory] system(s) required my full and direct attention, intervention and personal management. The aggregate critical care time was [32] minutes. This time is in addition to time spent performing reported procedures but includes the following: [x] Data Review and interpretation [x] Patient assessment and monitoring of vital signs [x] Documentation [x] Medication orders and managementPatient would benefit by outpatient bariatric surgical evaluation for weight reduction program and medically stable CODE STATUS FULL History Interval history: Mentation is somewhat improved, she is more responsive remains intubated Hospitalist Physical - Physical exam Narrative exam: General.: Appears well, no distress, nontoxic HEENT: Moist mucous membranes, extraocular muscles intact, no lymphadenopathy Neck: supple Cardiac: S1-S2 heard Lungs: clear to auscultation bilaterally Abdomen: soft , nontender, nondistended, bowel sounds positive Extremities: no edema clubbing or cyanosis Skin: no rash or lesions Neurologic: Intubated, Patient is only moving left side of her body responds to painful stimuli, right side is not moving. does not obey commands Psych: appropriate behavior, appropriate mood, corporative, judgment intact - Constitutional Vitals: Temp Pulse Resp BP Pulse Ox 99.2 F 65 17 103/56 97 06/15/17 12:00 06/15/17 13:00 06/15/17 13:00 06/15/17 13:00 06/15/17 13:00 General appearance: Present: no acute distress, other (withdrawn, nonverbal) Results - Labs CBC & Chem 7: 06/16/17 08:45 06/16/17 11:00 Labs: Laboratory Last Values WBC 21.4 K/mm3 (4.5-11.0) H 06/15/17 06:00 RBC 3.94 M/mm3 (3.65-5.03) 06/15/17 06:00 Hgb 9.2 gm/dl (10.1-14.3) L 06/15/17 06:00 POC Hgb 14.3 (12-17) 06/04/17 16:22 Hct 30.4 % (30.3-42.9) 06/15/17 06:00 POC Hct 42 (38-51) 06/04/17 16:22 MCV 77 fl (79-97) L 06/15/17 06:00 MCH 23 pg (28-32) L 06/15/17 06:00 MCHC 30 % (30-34) 06/15/17 06:00 RDW 18.8 % (13.2-15.2) H 06/15/17 06:00 Plt Count 199 K/mm3 (140-440) 06/15/17 06:00 Add Manual Diff Complete 06/15/17 06:00 Total Counted 100 06/15/17 06:00 Seg Neutrophils % Professor Of English 06/04/17 00:01 Seg Neuts % (Manual) 86.0 % (40.0-70.0) H 06/15/17 06:00 Band Neutrophils % 3.0 % 06/15/17 06:00 Lymphocytes % (Manual) 2.0 % (13.4-35.0) L 06/15/17 06:00 Reactive Lymphs % (Man) 0 % 06/15/17 06:00 Monocytes % (Manual) 7.0 % (0.0-7.3) 06/15/17 06:00 Eosinophils % (Manual) 0 % (0.0-4.3) 06/15/17 06:00 Basophils % (Manual) 0 % (0.0-1.8) 06/15/17 06:00 Metamyelocytes % 2.0 % 06/15/17 06:00 Myelocytes % 0 % 06/15/17 06:00 Promyelocytes % 0 % 06/15/17 06:00 Blast Cells % 0 % 06/15/17 06:00 Nucleated RBC % 1.0 % (0.0-0.9) H 06/15/17 06:00 Seg Neutrophils # Man 18.4 K/mm3 (1.8-7.7) H 06/15/17 06:00 Band Neutrophils # 0.6 K/mm3 06/15/17 06:00 Lymphocytes # (Manual) 0.4 K/mm3 (1.2-5.4) L 06/15/17 06:00 Abs React Lymphs (Man) 0.0 K/mm3 06/15/17 06:00 Monocytes # (Manual) 1.5 K/mm3 (0.0-0.8) H 06/15/17 06:00 Eosinophils # (Manual) 0.0 K/mm3 (0.0-0.4) 06/15/17 06:00 Basophils # (Manual) 0.0 K/mm3 (0.0-0.1) 06/15/17 06:00 Metamyelocytes # 0.4 K/mm3 06/15/17 06:00 Myelocytes # 0.0 K/mm3 06/15/17 06:00 Promyelocytes # 0.0 K/mm3 06/15/17 06:00 Blast Cells # 0.0 K/mm3 06/15/17 06:00 WBC Morphology Not Reportable 06/15/17 06:00 Hypersegmented Neuts Not Reportable 06/15/17 06:00 Hyposegmented Neuts Not Reportable 06/15/17 06:00 Hypogranular Neuts Not Reportable 06/15/17 06:00 Smudge Cells Not Reportable 06/15/17 06:00 Toxic Granulation Not Reportable 06/15/17 06:00 Toxic Vacuolation Not Reportable 06/15/17 06:00 Dohle Bodies Not Reportable 06/15/17 06:00 Pelger-Huet Anomaly Not Reportable 06/15/17 06:00 Sunita Rods Not Reportable 06/15/17 06:00 Platelet Estimate Consistent w auto 06/15/17 06:00 Clumped Platelets Not Reportable 06/15/17 06:00 Plt Clumps, EDTA Not Reportable 06/15/17 06:00 Large Platelets Not Reportable 06/15/17 06:00 Giant Platelets Not Reportable 06/15/17 06:00 Platelet Satelliting Not Reportable 06/15/17 06:00 Plt Morphology Comment Not Reportable 06/15/17 06:00 RBC Morphology Not Reportable 06/15/17 06:00 Dimorphic RBCs Not Reportable 06/15/17 06:00 Polychromasia Not Reportable 06/15/17 06:00 Hypochromasia 1+ 06/15/17 06:00 Poikilocytosis Not Reportable 06/15/17 06:00 Anisocytosis Not Reportable 06/15/17 06:00 Microcytosis 1+ 06/15/17 06:00 Macrocytosis Not Reportable 06/15/17 06:00 Spherocytes Not Reportable 06/15/17 06:00 Pappenheimer Bodies Not Reportable 06/15/17 06:00 Sickle Cells Not Reportable 06/15/17 06:00 Target Cells Few 06/15/17 06:00 Tear Drop Cells Not Reportable 06/15/17 06:00 Ovalocytes Not Reportable 06/15/17 06:00 Helmet Cells Not Reportable 06/15/17 06:00 [place] Bodies Not Reportable 06/15/17 06:00 [place] Rings Not Reportable 06/15/17 06:00 Ace Cells Not Reportable 06/15/17 06:00 Bite Cells Not Reportable 06/15/17 06:00 Crenated Cell Not Reportable 06/15/17 06:00 Elliptocytes Not Reportable 06/15/17 06:00 Acanthocytes (Spur) Not Reportable 06/15/17 06:00 Rouleaux Not Reportable 06/15/17 06:00 Hemoglobin C Crystals Not Reportable 06/15/17 06:00 Schistocytes Few 06/15/17 06:00 Malaria parasites Not Reportable 06/15/17 06:00 Williams Bodies Not Reportable 06/15/17 06:00 Hem Pathologist Commnt No 06/15/17 06:00 PT 13.5 Sec. (12.2-14.9) 06/09/17 16:55 INR 0.98 (0.87-1.13) 06/09/17 16:55 APTT 29.9 Sec. (24.2-36.6) 06/09/17 16:55 POC ABG pH 7.556 (7.35-7.45) H 06/11/17 06:51 ABG pH 7.406 pH Units (7.350-7.450) 06/15/17 Unknown POC ABG pCO2 34.8 (35-45) L 06/11/17 06:51 ABG pCO2 44.9 mm Hg 06/15/17 Unknown POC ABG pO2 125 (80-105) H 06/11/17 06:51 ABG pO2 115.7 mm Hg (80.0-90.0) H 06/15/17 Unknown POC ABG HCO3 30.9 06/11/17 06:51 ABG HCO3 27.6 mmol/L (20.0-26.0) H 06/15/17 Unknown POC ABG Total CO2 32 06/11/17 06:51 POC ABG O2 Sat 99 06/11/17 06:51 ABG O2 Saturation 98.1 % (95.0-99.0) 06/15/17 Unknown ABG O2 Content 12.7 (0.0-44) 06/15/17 Unknown POC ABG Base Excess 9 06/11/17 06:51 ABG Base Excess 2.5 mmol/L (-2.0-3.0) 06/15/17 Unknown ABG Hemoglobin 9.2 gm/dl (12.0-16.0) L 06/15/17 Unknown ABG Carboxyhemoglobin 1.7 % (0.0-5.0) 06/15/17 Unknown ABG Methemoglobin 0.4 % (0.0-1.5) 06/15/17 Unknown Oxyhemoglobin 96.1 % (95.0-99.0) 06/15/17 Unknown POC Sodium 137 mmol/L (138-146) L 06/04/17 16:22 POC Potassium 5.3 (3.5-4.9) H 06/04/17 16:22 POC Chloride 102 (98-109) 06/04/17 16:22 FiO2 35 % 06/15/17 Unknown Sodium 132 mmol/L (137-145) L D 06/15/17 06:00 Potassium 4.1 mmol/L (3.6-5.0) 06/15/17 06:00 Chloride 91.5 mmol/L (98-107) L 06/15/17 06:00 Carbon Dioxide 27 mmol/L (22-30) 06/15/17 06:00 Anion Gap 18 mmol/L 06/15/17 06:00 POC BUN 45 mg/dl (8-26) H 06/04/17 16:22 BUN 59 mg/dL (7-17) H 06/15/17 06:00 Creatinine 6.6 mg/dL (0.7-1.2) H 06/15/17 06:00 Estimated GFR 8 ml/min 06/15/17 06:00 BUN/Creatinine Ratio 9 % 06/15/17 06:00 Glucose 116 mg/dL (65-100) H 06/15/17 06:00 POC Glucose 109 (70-105) H 06/15/17 12:04 Osmolality 312 Mosm/kg 06/14/17 09:25 Calcium 8.6 mg/dL (8.4-10.2) 06/15/17 06:00 Phosphorus 4.50 mg/dL (2.5-4.5) 06/06/17 07:13 Magnesium 1.90 mg/dL (1.7-2.3) 06/06/17 07:13 Total Bilirubin 0.20 mg/dL (0.1-1.2) 06/06/17 07:13 AST 14 units/L (5-40) 06/06/17 07:13 ALT 15 units/L (7-56) 06/06/17 07:13 Alkaline Phosphatase 79 units/L (35-129) 06/06/17 07:13 Total Protein 5.7 g/dL (6.3-8.2) L 06/06/17 07:13 Albumin 3.3 g/dL (3.9-5) L 06/06/17 07:13 Albumin/Globulin Ratio 1.4 % 06/06/17 07:13 Triglycerides 132 mg/dL (2-149) 06/09/17 11:49 Cholesterol 171 mg/dL (50-199) 06/09/17 11:49 LDL Cholesterol Direct 95 mg/dL (50-130) 06/09/17 11:49 HDL Cholesterol 50 mg/dL (40-59) 06/09/17 11:49 Cholesterol/HDL Ratio 3.42 % 06/09/17 11:49 PTH Pre-Incision 641.9 (11.1-79.5) H 06/04/17 13:55 PTH Post-Excision 154.7 (11.1-79.5) H 06/04/17 13:55 PTH Intact Intraop 5 m Not Reportable 06/04/17 13:55
[2017-06-16] MEDS: PROAMATINE PO SCH ×3 (06:00→21:56)
[2017-06-16 07:51] LABS: Chloride 111.6 mmol/L (98-107)
--- NOTE | 2017-06-16 08:00 | XRay Report ---
AP CHEST: HISTORY: Followup respiratory failure There is mild rotation to the left. Lines and support devices remain in the same position. Mild cardiomegaly, mild pulmonary venous congestion and left lower lobe opacity are unchanged. No new findings. IMPRESSION: No change.
--- NOTE | 2017-06-16 08:25 | Progress Note ---
Assessment and Plan Impression: * ESRD * Hypertension * s/p Parathyroidectomy * Acute CVA * Acute respiratory failure * Anemia secondary to ESRD * Hyponatremia Plan: * Hemodialysis today;continue MWF schedule * Labs are pending * Continue current calcium supplement and calcium bath to 3.5 with dialysis * IV calcium prn * Epogen TIW * Strict I/O Subjective Date of service: 06/16/17 Principal diagnosis: ARM/MV/Post hyperparathy./ESRD Interval history: No acute events overnight. Objective - Vital Signs Vital signs: Vital Signs - 12hr 06/15/17 06/15/17 06/15/17 20:30 20:35 21:00 Temperature Pulse Rate 67 66 Pulse Rate [ 69 From Monitor] Respiratory 13 19 22 Rate Blood Pressure 92/43 105/48 O2 Sat by Pulse 96 100 Oximetry 06/15/17 06/15/17 06/15/17 21:30 22:00 22:30 Temperature Pulse Rate 67 67 68 Pulse Rate [ From Monitor] Respiratory 13 14 18 Rate Blood Pressure 111/63 111/56 104/55 O2 Sat by Pulse 97 97 97 Oximetry 06/15/17 06/15/17 06/15/17 23:00 23:22 23:30 Temperature 98.6 F Pulse Rate 69 69 Pulse Rate [ From Monitor] Respiratory 17 19 Rate Blood Pressure 117/56 104/54 O2 Sat by Pulse 97 Oximetry 06/15/17 06/16/17 06/16/17 23:31 00:00 00:01 Temperature Pulse Rate 67 66 67 Pulse Rate [ From Monitor] Respiratory 12 14 Rate Blood Pressure 104/54 98/52 98/52 O2 Sat by Pulse 98 99 Oximetry 06/16/17 06/16/17 06/16/17 00:06 00:30 01:00 Temperature Pulse Rate 65 64 Pulse Rate [ 66 From Monitor] Respiratory 12 18 24 Rate Blood Pressure 107/55 102/57 O2 Sat by Pulse 100 96 Oximetry 06/16/17 06/16/17 06/16/17 01:30 02:00 02:30 Temperature Pulse Rate 67 67 68 Pulse Rate [ From Monitor] Respiratory 15 16 16 Rate Blood Pressure 109/57 108/59 110/56 O2 Sat by Pulse 98 Oximetry 06/16/17 06/16/17 06/16/17 03:00 03:30 03:51 Temperature Pulse Rate 65 62 66 Pulse Rate [ From Monitor] Respiratory 18 20 Rate Blood Pressure 109/52 105/52 113/54 O2 Sat by Pulse 97 97 100 Oximetry 06/16/17 06/16/17 06/16/17 04:00 04:30 05:00 Temperature 98.7 F Pulse Rate 67 68 63 Pulse Rate [ From Monitor] Respiratory 19 21 14 Rate Blood Pressure 113/54 113/54 108/52 O2 Sat by Pulse 100 99 98 Oximetry 06/16/17 06/16/17 06/16/17 05:30 06:01 06:31 Temperature Pulse Rate 70 71 Pulse Rate [ From Monitor] Respiratory 19 20 Rate Blood Pressure 116/57 116/57 116/57 O2 Sat by Pulse 97 100 98 Oximetry - General Appearance General appearance: well-developed, well-nourished EENT: ATNC, other (ETT in place) Respiratory: Present: Clear to Ascultation Cardiology: regular, S1S2 Gastrointestinal: normoactive bowel sounds, no tenderness, no distended, obese Integumentary: no rash, warm and dry Musculoskeletal: other (no edema; LUCILLE AVF +bruit) - Lab 06/16/17 08:45 06/16/17 11:00 Most recent lab results ABG pH 7.406 pH Units (7.350-7.450) 06/15/17 Unknown ABG pCO2 44.9 mm Hg 06/15/17 Unknown ABG pO2 115.7 mm Hg (80.0-90.0) H 06/15/17 Unknown ABG HCO3 27.6 mmol/L (20.0-26.0) H 06/15/17 Unknown ABG O2 Saturation 98.1 % (95.0-99.0) 06/15/17 Unknown Calcium 8.6 mg/dL (8.4-10.2) 06/15/17 06:00 Phosphorus 4.50 mg/dL (2.5-4.5) 06/06/17 07:13 Magnesium 1.90 mg/dL (1.7-2.3) 06/06/17 07:13
[2017-06-16 08:36] LABS: Potassium 2.7 mmol/L (3.6-5.0)
[2017-06-16 08:37] LABS: Calcium 5.3 mg/dL (8.4-10.2)
[2017-06-16 08:56] LABS: Hemoglobin 8.9 gm/dl (10.1-14.3); Mean Corpuscular HGB Conc 31 % (30-34); Mean Corpuscular Volume 77 fl (79-97); Platelet Count 204 K/mm3 (140-440); Red Blood Count 3.77 M/mm3 (3.65-5.03); Red Cell Distribution Width 18.1 % (13.2-15.2)
[2017-06-16 08:57] LABS: Mean Corpuscular Hemoglobin 24 pg (28-32); White Blood Count 21.9 K/mm3 (4.5-11.0)
[2017-06-16 09:38] LABS: ABG Base Excess 1.2 mmol/L (-2.0-3.0); ABG HCO3 27.1 mmol/L (20.0-26.0); ABG Oxygen Saturation 97.5 % (95.0-99.0); ABG PCO2 49.4 mm Hg; ABG PH 7.357 pH Units (7.350-7.450)
[2017-06-16] MEDS: ROCALTROL PO SCH (09:43)
[2017-06-16] MEDS: TUMS PO SCH ×3 (09:44→21:56)
[2017-06-16] MEDS: BABY ASPIRIN PO SCH (09:44)
[2017-06-16] MEDS: PEPCID PO SCH (09:44)
[2017-06-16] MEDS: HEPARIN SUB-Q SCH ×2 (09:44→21:56)
[2017-06-16 09:53] LABS: Blastocytes % (Manual) 0 %
[2017-06-16 09:55] LABS: Hypochromasia 2+; Microcytosis 1+
[2017-06-16 09:56] LABS: Diff Status Complete; Platelet Estimate Cons; Schistocytes Few; Tear Drop Cells Few
[2017-06-16 09:59] LABS: Eosinophils % (Auto) 1.4 % (0.0-4.3)
--- NOTE | 2017-06-16 10:33 | Progress Note ---
Assessment and Plan Assessment and plan: 66-year-old female patient significant past medical history of hypertension and obstructive sleep apnea, ESRD on hemodialysis, breast cancer status post mastectomy underwent elective total parathyroidectomy and was admitted to ICU with respiratory failure requiring intubation, she unfortunately a stroke Acute left MCA stroke with right-sided weakness - Neurology consult appreciated -MR brain showed large left MCA acute infarct - on aspirin and statin - Cardiology consulted to rule out cardiac cause of stroke - Vascular surgery consulted no intervention needed -received mannitol for IC edema Acute hypoxic respiratory failure on MV > 96 hours - re-intubated, continue vent and planned for trache Metabolic Enchephalopathy -due to CVA and IC edema, imrpoving -continue mannitol Status post subtotal parathyroidectomy/Hypocalcemia - Continue postop care per surgery - continue to replete calcium as needed End-stage renal disease on hemodialysis - Continue hemodialysis as scheduled per nephrology Hyperkalemia -improved with HD Hypertension - Continue When necessary medication History of breast cancer status post mastectomy - Stable Morbid obesity with BMI of 47.8, - Nutrition input appreciated Moderate malnutrition -continue tube feeds Hyponatremia -reduced free water via G tube, and received NS, now improved The high probability of a clinically significant, sudden or life threatening deterioration of the [respiratory] system(s) required my full and direct attention, intervention and personal management. The aggregate critical care time was [32] minutes. This time is in addition to time spent performing reported procedures but includes the following: [x] Data Review and interpretation [x] Patient assessment and monitoring of vital signs [x] Documentation [x] Medication orders and managementPatient would benefit by outpatient bariatric surgical evaluation for weight reduction program and medically stable CODE STATUS FULL History Interval history: Mentation is somewhat improved, she is more responsive remains intubated Hospitalist Physical - Physical exam Narrative exam: General.: Appears well, no distress, nontoxic HEENT: Moist mucous membranes, extraocular muscles intact, no lymphadenopathy Neck: supple Cardiac: S1-S2 heard Lungs: clear to auscultation bilaterally Abdomen: soft , nontender, nondistended, bowel sounds positive Extremities: no edema clubbing or cyanosis Skin: no rash or lesions Neurologic: Intubated, Patient is only moving left side of her body responds to painful stimuli, right side is not moving. does not obey commands Psych: appropriate behavior, appropriate mood, corporative, judgment intact - Constitutional Vitals: Temp Pulse Resp BP Pulse Ox 98.8 F 74 27 H 120/70 99 06/16/17 08:00 06/16/17 08:30 06/16/17 08:30 06/16/17 08:30 06/16/17 08:30 General appearance: Present: no acute distress, other (withdrawn, nonverbal) Results - Labs CBC & Chem 7: 06/16/17 08:45 06/16/17 11:00 Labs: Laboratory Last Values WBC 21.9 K/mm3 (4.5-11.0) H 06/16/17 08:45 RBC 3.77 M/mm3 (3.65-5.03) 06/16/17 08:45 Hgb 8.9 gm/dl (10.1-14.3) L 06/16/17 08:45 POC Hgb 14.3 (12-17) 06/04/17 16:22 Hct 29.0 % (30.3-42.9) L 06/16/17 08:45 POC Hct 42 (38-51) 06/04/17 16:22 MCV 77 fl (79-97) L 06/16/17 08:45 MCH 24 pg (28-32) L 06/16/17 08:45 MCHC 31 % (30-34) 06/16/17 08:45 RDW 18.1 % (13.2-15.2) H 06/16/17 08:45 Plt Count 204 K/mm3 (140-440) 06/16/17 08:45 [place] % (Auto) 11.2 % (0.0-7.3) H 06/16/17 08:45 Eos % (Auto) 1.4 % (0.0-4.3) 06/16/17 08:45 [place] # 1.6 K/mm3 (0.0-0.8) H 06/16/17 08:45 Eos # 0.2 K/mm3 (0.0-0.4) 06/16/17 08:45 Baso # 0.1 K/mm3 (0.0-0.1) 06/16/17 08:45 Add Manual Diff Complete 06/16/17 08:45 Total Counted 100 06/16/17 08:45 Seg Neutrophils % 82.8 % (40.0-70.0) H 06/16/17 08:45 Seg Neuts % (Manual) 78.0 % (40.0-70.0) H 06/16/17 08:45 Band Neutrophils % 1.0 % 06/16/17 08:45 Lymphocytes % (Manual) 3.0 % (13.4-35.0) L 06/16/17 08:45 Reactive Lymphs % (Man) 0 % 06/16/17 08:45 Monocytes % (Manual) 9.0 % (0.0-7.3) H 06/16/17 08:45 Eosinophils % (Manual) 2.0 % (0.0-4.3) 06/16/17 08:45 Basophils % (Manual) 1.0 % (0.0-1.8) 06/16/17 08:45 Metamyelocytes % 6.0 % 06/16/17 08:45 Myelocytes % 0 % 06/16/17 08:45 Promyelocytes % 0 % 06/16/17 08:45 Blast Cells % 0 % 06/16/17 08:45 Nucleated RBC % 1.0 % (0.0-0.9) H 06/16/17 08:45 Seg Neutrophils # 12.2 K/mm3 (1.8-7.7) H 06/16/17 08:45 Seg Neutrophils # Man 17.1 K/mm3 (1.8-7.7) H 06/16/17 08:45 Band Neutrophils # 0.2 K/mm3 06/16/17 08:45 Lymphocytes # (Manual) 0.7 K/mm3 (1.2-5.4) L 06/16/17 08:45 Abs React Lymphs (Man) 0.0 K/mm3 06/16/17 08:45 Monocytes # (Manual) 2.0 K/mm3 (0.0-0.8) H 06/16/17 08:45 Eosinophils # (Manual) 0.4 K/mm3 (0.0-0.4) 06/16/17 08:45 Basophils # (Manual) 0.2 K/mm3 (0.0-0.1) H 06/16/17 08:45 Metamyelocytes # 1.3 K/mm3 06/16/17 08:45 Myelocytes # 0.0 K/mm3 06/16/17 08:45 Promyelocytes # 0.0 K/mm3 06/16/17 08:45 Blast Cells # 0.0 K/mm3 06/16/17 08:45 WBC Morphology Not Reportable 06/16/17 08:45 Hypersegmented Neuts Not Reportable 06/16/17 08:45 Hyposegmented Neuts Not Reportable 06/16/17 08:45 Hypogranular Neuts Not Reportable 06/16/17 08:45 Smudge Cells Not Reportable 06/16/17 08:45 Toxic Granulation Not Reportable 06/16/17 08:45 Toxic Vacuolation Not Reportable 06/16/17 08:45 Dohle Bodies Not Reportable 06/16/17 08:45 Pelger-Huet Anomaly Not Reportable 06/16/17 08:45 Sunita Rods Not Reportable 06/16/17 08:45 Platelet Estimate Cons 06/16/17 08:45 Clumped Platelets Not Reportable 06/16/17 08:45 Plt Clumps, EDTA Not Reportable 06/16/17 08:45 Large Platelets Not Reportable 06/16/17 08:45 Giant Platelets Not Reportable 06/16/17 08:45 Platelet Satelliting Not Reportable 06/16/17 08:45 Plt Morphology Comment Not Reportable 06/16/17 08:45 RBC Morphology Not Reportable 06/16/17 08:45 Dimorphic RBCs Not Reportable 06/16/17 08:45 Polychromasia Not Reportable 06/16/17 08:45 Hypochromasia 2+ 06/16/17 08:45 Poikilocytosis Not Reportable 06/16/17 08:45 Anisocytosis Not Reportable 06/16/17 08:45 Microcytosis 1+ 06/16/17 08:45 Macrocytosis Not Reportable 06/16/17 08:45 Spherocytes Not Reportable 06/16/17 08:45 Pappenheimer Bodies Not Reportable 06/16/17 08:45 Sickle Cells Not Reportable 06/16/17 08:45 Target Cells Not Reportable 06/16/17 08:45 Tear Drop Cells Few 06/16/17 08:45 Ovalocytes Not Reportable 06/16/17 08:45 Helmet Cells Not Reportable 06/16/17 08:45 [place] Bodies Not Reportable 06/16/17 08:45 [place] Rings Not Reportable 06/16/17 08:45 [place] Cells Not Reportable 06/16/17 08:45 Bite Cells Not Reportable 06/16/17 08:45 Crenated Cell Not Reportable 06/16/17 08:45 Elliptocytes Not Reportable 06/16/17 08:45 Acanthocytes (Spur) Not Reportable 06/16/17 08:45 Rouleaux Not Reportable 06/16/17 08:45 Hemoglobin C Crystals Not Reportable 06/16/17 08:45 Schistocytes Few 06/16/17 08:45 Malaria parasites Not Reportable 06/16/17 08:45 Williams Bodies Not Reportable 06/16/17 08:45 Hem Pathologist Commnt No 06/16/17 08:45 PT 13.5 Sec. (12.2-14.9) 06/09/17 16:55 INR 0.98 (0.87-1.13) 06/09/17 16:55 APTT 29.9 Sec. (24.2-36.6) 06/09/17 16:55 POC ABG pH 7.556 (7.35-7.45) H 06/11/17 06:51 ABG pH 7.357 pH Units (7.350-7.450) 06/16/17 09:25 POC ABG pCO2 34.8 (35-45) L 06/11/17 06:51 ABG pCO2 49.4 mm Hg 06/16/17 09:25 POC ABG pO2 125 (80-105) H 06/11/17 06:51 ABG pO2 102.0 mm Hg (80.0-90.0) H 06/16/17 09:25 POC ABG HCO3 30.9 06/11/17 06:51 ABG HCO3 27.1 mmol/L (20.0-26.0) H 06/16/17 09:25 POC ABG Total CO2 32 06/11/17 06:51 POC ABG O2 Sat 99 06/11/17 06:51 ABG O2 Saturation 97.5 % (95.0-99.0) 06/16/17 09:25 ABG O2 Content 12.3 (0.0-44) 06/16/17 09:25 POC ABG Base Excess 9 06/11/17 06:51 ABG Base Excess 1.2 mmol/L (-2.0-3.0) 06/16/17 09:25 ABG Hemoglobin 9.0 gm/dl (12.0-16.0) L 06/16/17 09:25 ABG Carboxyhemoglobin 1.7 % (0.0-5.0) 06/16/17 09:25 ABG Methemoglobin 0.4 % (0.0-1.5) 06/16/17 09:25 Oxyhemoglobin 95.4 % (95.0-99.0) 06/16/17 09:25 POC Sodium 137 mmol/L (138-146) L 06/04/17 16:22 POC Potassium 5.3 (3.5-4.9) H 06/04/17 16:22 POC Chloride 102 (98-109) 06/04/17 16:22 FiO2 35 % 06/16/17 09:25 Sodium 141 mmol/L (137-145) D 06/16/17 06:00 Potassium 2.7 mmol/L (3.6-5.0) L* D 06/16/17 06:00 Chloride 111.6 mmol/L (98-107) H 06/16/17 06:00 Carbon Dioxide 17 mmol/L (22-30) L D 06/16/17 06:00 Anion Gap 15 mmol/L 06/16/17 06:00 POC BUN 45 mg/dl (8-26) H 06/04/17 16:22 BUN 52 mg/dL (7-17) H 06/16/17 06:00 Creatinine 5.0 mg/dL (0.7-1.2) H 06/16/17 06:00 Estimated GFR 11 ml/min 06/16/17 06:00 BUN/Creatinine Ratio 10 % 06/16/17 06:00 Glucose 74 mg/dL (65-100) 06/16/17 06:00 POC Glucose 96 (70-105) 06/16/17 04:25 Osmolality 312 Mosm/kg 06/14/17 09:25 Calcium 5.3 mg/dL (8.4-10.2) L* D 06/16/17 06:00 Phosphorus 4.50 mg/dL (2.5-4.5) 06/06/17 07:13 Magnesium 1.90 mg/dL (1.7-2.3) 06/06/17 07:13 Total Bilirubin 0.20 mg/dL (0.1-1.2) 06/06/17 07:13 AST 14 units/L (5-40) 06/06/17 07:13 ALT 15 units/L (7-56) 06/06/17 07:13 Alkaline Phosphatase 79 units/L (35-129) 06/06/17 07:13 Total Protein 5.7 g/dL (6.3-8.2) L 06/06/17 07:13 Albumin 3.3 g/dL (3.9-5) L 06/06/17 07:13 Albumin/Globulin Ratio 1.4 % 06/06/17 07:13 Triglycerides 132 mg/dL (2-149) 06/09/17 11:49 Cholesterol 171 mg/dL (50-199) 06/09/17 11:49 LDL Cholesterol Direct 95 mg/dL (50-130) 06/09/17 11:49 HDL Cholesterol 50 mg/dL (40-59) 06/09/17 11:49 Cholesterol/HDL Ratio 3.42 % 06/09/17 11:49 PTH Pre-Incision 641.9 (11.1-79.5) H 06/04/17 13:55 PTH Post-Excision 154.7 (11.1-79.5) H 06/04/17 13:55 PTH Intact Intraop 5 m Not Reportable 06/04/17 13:55
[2017-06-16] MEDS ORDERED: NACL 0.9% 100 ML IV PRN (11:09)
--- NOTE | 2017-06-16 11:18 | Progress Note ---
Assessment and Plan Assessment: Acute CVA / AMS - head CT showed acute stroke in MCA, no hemorrhage Thrombus in distal L ICA and MCA - per chart, neuro currently recommends against heparin gtt in setting of acute CVA and risk of conversion to hemorrhagic CVA. Hyperparathyroidism, s/p subtotal parathyroidectomy on 06/04/2017 CMP - EF 40-45%; no current clinical evidence of acute heart failure Acute respiratory failure / Laryngeal edema/stridor - for possible trach per pulmonary HTN ESRD on HD Hypokalemia Hypocalcemia Leukocytosis - pt with intermittent low grade fever; CXR with NAF Morbid obesity History of breast cancer status post mastectomy Plan: Cont present cardiac regimen. BB and ACEI/ARB held in setting of hypotension. Consider cautious introduction if BPs remain WNL. Replete K+ and obtain STAT serum Mg. Repeat potassium this evening and BMP in AM. Calcium replacement per nephrology. Cont ASA and statin. For possible trach per pulmonary. Consider blood cultures per primary. Currently stable cardiac status. The patient has been seen in conjunction with Dr. Bradley who agrees with the assessment and plan of care. Subjective Date of service: 06/16/17 Principal diagnosis: ARM/MV/Post hyperparathy./ESRD Interval history: Pt remains intubated. No acute events. VSS. Objective Last Vital Signs Temp 98.8 F 06/16/17 08:00 Pulse 62 06/16/17 11:00 Resp 18 06/16/17 11:00 BP 140/74 06/16/17 11:00 Pulse Ox 100 06/16/17 11:00 - Physical Examination General: Other (intubated, nonresponsive) HEENT: Positive: PERRL, Mucus Membranes Moist Neck: Positive: neck supple, trachea midline Cardiac: Positive: Reg Rate and Rhythm, S1/S2 Lungs: Positive: Decreased Breath Sounds, Ventilated Respirations Neuro: Positive: Weakness (right-sided), Other (intubated, nonresponsive) Abdomen: Positive: Unremarkable. Negative: Tender Skin: Positive: Clear. Negative: Rash, Wound Musculoskeletal: No Fluid Collection, No Pain, Normal Range of Motion Extremities: Absent: edema - Labs and Meds CBC 06/16/17 Range/Units 08:45 WBC 21.9 H (4.5-11.0) K/mm3 RBC 3.77 (3.65-5.03) M/mm3 Hgb 8.9 L (10.1-14.3) gm/dl Hct 29.0 L (30.3-42.9) % Plt Count 204 (140-440) K/mm3 [place] # 1.6 H (0.0-0.8) K/mm3 Eos # 0.2 (0.0-0.4) K/mm3 Baso # 0.1 (0.0-0.1) K/mm3 Comprehensive Metabolic Panel 06/16/17 Range/Units 06:00 Sodium 141 D (137-145) mmol/L Potassium 2.7 L* D (3.6-5.0) mmol/L Chloride 111.6 H (98-107) mmol/L Carbon Dioxide 17 L D (22-30) mmol/L BUN 52 H (7-17) mg/dL Creatinine 5.0 H (0.7-1.2) mg/dL Glucose 74 (65-100) mg/dL Calcium 5.3 L* D (8.4-10.2) mg/dL - Imaging and Cardiology EKG: image reviewed Echo: report reviewed (LV mildly dilated, mild to moderate LVH, EF 40-45%, LA moderate to severely dilated, mild MR, mild AR, mild TR. ) - EKG Sinus rhythms and dysrhythmias: sinus rhythm
--- NOTE | 2017-06-16 11:36 | Progress Note ---
Assessment and Plan 66 y/o female with post-op respiratory failure, likely from pulmonary edema and possible airway edema with end stage renal disease. 1. Agreed to trach. Surgery can discuss the placement of peg tube during their discussion of the risks and benefits of the tracheotomy 2. Surgery to perform trach and peg 3. No sedation, continue to leave off 4. Follow up Neurology recs, none since 06/12 5. Overall prognosis is guarded to poor 6. HD per renal, currently undergoing now. CCT 31 minutes. Subjective Date of service: 06/16/17 Principal diagnosis: ARM/MV/Post hyperparathy./ESRD Interval history: No acute events. Mental status is unchanged. Son at bedside and they have agreed to trach placement. Objective Vital Signs - 12hr 06/16/17 06/16/17 06/16/17 00:00 00:01 00:06 Temperature Pulse Rate 66 67 Pulse Rate [ 66 From Monitor] Respiratory 12 14 12 Rate Blood Pressure 98/52 98/52 O2 Sat by Pulse 99 100 Oximetry 06/16/17 06/16/17 06/16/17 00:30 01:00 01:30 Temperature Pulse Rate 65 64 67 Pulse Rate [ From Monitor] Respiratory 18 24 15 Rate Blood Pressure 107/55 102/57 109/57 O2 Sat by Pulse 96 Oximetry 06/16/17 06/16/17 06/16/17 02:00 02:30 03:00 Temperature Pulse Rate 67 68 65 Pulse Rate [ From Monitor] Respiratory 16 16 18 Rate Blood Pressure 108/59 110/56 109/52 O2 Sat by Pulse 98 97 Oximetry 06/16/17 06/16/17 06/16/17 03:30 03:51 04:00 Temperature 98.7 F Pulse Rate 62 66 67 Pulse Rate [ From Monitor] Respiratory 20 19 Rate Blood Pressure 105/52 113/54 113/54 O2 Sat by Pulse 97 100 100 Oximetry 06/16/17 06/16/17 06/16/17 04:30 05:00 05:30 Temperature Pulse Rate 68 63 Pulse Rate [ From Monitor] Respiratory 21 14 Rate Blood Pressure 113/54 108/52 116/57 O2 Sat by Pulse 99 98 97 Oximetry 06/16/17 06/16/17 06/16/17 06:01 06:31 07:00 Temperature Pulse Rate 70 71 66 Pulse Rate [ From Monitor] Respiratory 19 20 22 Rate Blood Pressure 116/57 116/57 112/59 O2 Sat by Pulse 100 98 96 Oximetry 06/16/17 06/16/17 06/16/17 07:30 08:00 08:15 Temperature 98.8 F Pulse Rate 68 74 68 Pulse Rate [ From Monitor] Respiratory 25 H 20 22 Rate Blood Pressure 133/72 132/63 O2 Sat by Pulse 98 98 100 Oximetry 06/16/17 06/16/17 06/16/17 08:30 09:01 09:30 Temperature Pulse Rate 74 71 74 Pulse Rate [ From Monitor] Respiratory 27 H 22 22 Rate Blood Pressure 120/70 120/70 145/73 O2 Sat by Pulse 99 98 99 Oximetry 06/16/17 06/16/17 06/16/17 10:00 10:30 10:50 Temperature Pulse Rate 71 70 62 Pulse Rate [ From Monitor] Respiratory 24 21 7 L Rate Blood Pressure 129/72 116/66 O2 Sat by Pulse 99 96 100 Oximetry 06/16/17 11:00 Temperature Pulse Rate 62 Pulse Rate [ From Monitor] Respiratory 18 Rate Blood Pressure 140/74 O2 Sat by Pulse 100 Oximetry Constitutional: no acute distress, other (intubated, some response to tactile stimulation otherwise nonresponsive) Eyes: non-icteric ENT: other (orally intubated) Neck: supple, no JVD, other (no stridor) Effort: normal Ascultation: Bilateral: clear, diminished breath sounds, rales, other (coarse BS bilaterally) Percussion: Bilateral: not dull Cardiovascular: regular rate and rhythm Gastrointestinal: normoactive bowel sounds, soft, non-tender, non-distended, other (obese) Integumentary: normal Extremities: no cyanosis, no edema, pink and warm, edema Neurologic: other (altered mentation, R-hemiparesis,GCS 3-4) Psychiatric: mood appropriate, affect normal CBC and BMP: 06/16/17 08:45 06/16/17 06:00 ABG, PT/INR, D-dimer: ABG POC ABG pH 7.556 (7.35-7.45) H 06/11/17 06:51 ABG pH 7.357 pH Units (7.350-7.450) 06/16/17 09:25 POC ABG pCO2 34.8 (35-45) L 06/11/17 06:51 ABG pCO2 49.4 mm Hg 06/16/17 09:25 POC ABG pO2 125 (80-105) H 06/11/17 06:51 ABG pO2 102.0 mm Hg (80.0-90.0) H 06/16/17 09:25 POC ABG HCO3 30.9 06/11/17 06:51 POC ABG Total CO2 32 06/11/17 06:51 POC ABG O2 Sat 99 06/11/17 06:51 ABG O2 Saturation 97.5 % (95.0-99.0) 06/16/17 09:25 PT/INR, D-dimer PT 13.5 Sec. (12.2-14.9) 06/09/17 16:55 INR 0.98 (0.87-1.13) 06/09/17 16:55 Abnormal lab findings: Abnormal Labs 06/04/17 06/04/17 06/04/17 00:01 12:50 13:55 WBC 11.4 H Hgb Hct POC Hct MCV 76 L MCH 23 L RDW 18.5 H [place] % (Auto) [place] # Seg Neutrophils % Seg Neuts % (Manual) 89.0 H Lymphocytes % (Manual) 6.0 L Monocytes % (Manual) Nucleated RBC % Seg Neutrophils # Seg Neutrophils # Man 10.1 H Lymphocytes # (Manual) 0.7 L Monocytes # (Manual) Eosinophils # (Manual) Basophils # (Manual) POC ABG pH ABG pH POC ABG pCO2 POC ABG pO2 ABG pO2 ABG HCO3 ABG O2 Saturation ABG Hemoglobin POC Sodium POC Potassium Sodium Potassium 5.1 H 5.2 H Chloride Carbon Dioxide POC BUN BUN 48 H Creatinine 6.2 H Glucose POC Glucose Calcium Total Protein Albumin PTH Pre-Incision PTH Post-Excision 06/04/17 06/04/17 06/04/17 13:55 16:10 16:16 WBC Hgb Hct POC Hct 37 L MCV MCH RDW [place] % (Auto) [place] # Seg Neutrophils % Seg Neuts % (Manual) Lymphocytes % (Manual) Monocytes % (Manual) Nucleated RBC % Seg Neutrophils # Seg Neutrophils # Man Lymphocytes # (Manual) Monocytes # (Manual) Eosinophils # (Manual) Basophils # (Manual) POC ABG pH 7.306 L ABG pH POC ABG pCO2 58.7 H POC ABG pO2 338 H ABG pO2 ABG HCO3 ABG O2 Saturation ABG Hemoglobin POC Sodium 135 L POC Potassium 5.2 H Sodium Potassium Chloride Carbon Dioxide POC BUN 44 H BUN Creatinine Glucose POC Glucose 183 H Calcium Total Protein Albumin PTH Pre-Incision 641.9 H PTH Post-Excision 154.7 H 06/04/17 06/04/17 06/04/17 16:22 20:44 21:29 WBC Hgb Hct POC Hct MCV MCH RDW [place] % (Auto) [place] # Seg Neutrophils % Seg Neuts % (Manual) Lymphocytes % (Manual) Monocytes % (Manual) Nucleated RBC % Seg Neutrophils # Seg Neutrophils # Man Lymphocytes # (Manual) Monocytes # (Manual) Eosinophils # (Manual) Basophils # (Manual) POC ABG pH 7.484 H ABG pH POC ABG pCO2 POC ABG pO2 ABG pO2 ABG HCO3 ABG O2 Saturation ABG Hemoglobin POC Sodium 137 L POC Potassium 5.3 H Sodium Potassium 5.2 H Chloride Carbon Dioxide POC BUN 45 H BUN 51 H Creatinine 6.5 H Glucose 119 H POC Glucose 176 H Calcium Total Protein Albumin PTH Pre-Incision PTH Post-Excision 06/05/17 06/05/17 06/05/17 03:31 11:44 11:44 WBC 13.4 H Hgb Hct POC Hct MCV 75 L MCH 23 L RDW 18.2 H [place] % (Auto) [place] # Seg Neutrophils % Seg Neuts % (Manual) Lymphocytes % (Manual) Monocytes % (Manual) Nucleated RBC % Seg Neutrophils # Seg Neutrophils # Man Lymphocytes # (Manual) Monocytes # (Manual) Eosinophils # (Manual) Basophils # (Manual) POC ABG pH ABG pH POC ABG pCO2 POC ABG pO2 75 L ABG pO2 ABG HCO3 ABG O2 Saturation ABG Hemoglobin POC Sodium POC Potassium Sodium Potassium 5.8 H Chloride Carbon Dioxide POC BUN BUN 56 H Creatinine 7.0 H Glucose 111 H POC Glucose Calcium 8.2 L Total Protein 6.2 L Albumin 3.1 L PTH Pre-Incision PTH Post-Excision 06/06/17 06/06/17 06/07/17 05:07 07:13 03:53 WBC Hgb Hct POC Hct MCV MCH RDW [place] % (Auto) [place] # Seg Neutrophils % Seg Neuts % (Manual) Lymphocytes % (Manual) Monocytes % (Manual) Nucleated RBC % Seg Neutrophils # Seg Neutrophils # Man Lymphocytes # (Manual) Monocytes # (Manual) Eosinophils # (Manual) Basophils # (Manual) POC ABG pH ABG pH POC ABG pCO2 POC ABG pO2 116 H 137 H ABG pO2 ABG HCO3 ABG O2 Saturation ABG Hemoglobin POC Sodium POC Potassium Sodium Potassium Chloride Carbon Dioxide POC BUN BUN 32 H Creatinine 4.9 H Glucose 115 H POC Glucose Calcium 7.9 L Total Protein 5.7 L Albumin 3.3 L PTH Pre-Incision PTH Post-Excision 06/07/17 06/07/17 06/07/17 05:21 05:21 16:54 WBC Hgb Hct POC Hct MCV 75 L MCH 24 L RDW 18.7 H [place] % (Auto) [place] # Seg Neutrophils % Seg Neuts % (Manual) Lymphocytes % (Manual) Monocytes % (Manual) Nucleated RBC % Seg Neutrophils # Seg Neutrophils # Man Lymphocytes # (Manual) Monocytes # (Manual) Eosinophils # (Manual) Basophils # (Manual) POC ABG pH ABG pH POC ABG pCO2 POC ABG pO2 ABG pO2 ABG HCO3 ABG O2 Saturation ABG Hemoglobin POC Sodium POC Potassium Sodium Potassium 5.4 H Chloride Carbon Dioxide POC BUN BUN 52 H Creatinine 6.2 H Glucose 107 H POC Glucose 110 H Calcium 8.0 L Total Protein Albumin PTH Pre-Incision PTH Post-Excision 06/07/17 06/07/17 06/08/17 17:38 23:32 04:00 WBC Hgb Hct POC Hct MCV 77 L MCH 23 L RDW 18.3 H [place] % (Auto) [place] # Seg Neutrophils % Seg Neuts % (Manual) 78.0 H Lymphocytes % (Manual) Monocytes % (Manual) Nucleated RBC % 3.0 H Seg Neutrophils # Seg Neutrophils # Man 7.8 H Lymphocytes # (Manual) Monocytes # (Manual) Eosinophils # (Manual) Basophils # (Manual) POC ABG pH 7.310 L ABG pH POC ABG pCO2 51.9 H POC ABG pO2 ABG pO2 ABG HCO3 ABG O2 Saturation ABG Hemoglobin POC Sodium POC Potassium Sodium Potassium Chloride Carbon Dioxide POC BUN BUN Creatinine Glucose POC Glucose 63 L Calcium Total Protein Albumin PTH Pre-Incision PTH Post-Excision 06/08/17 06/08/17 06/08/17 04:00 10:51 11:25 WBC Hgb Hct POC Hct MCV MCH RDW [place] % (Auto) [place] # Seg Neutrophils % Seg Neuts % (Manual) Lymphocytes % (Manual) Monocytes % (Manual) Nucleated RBC % Seg Neutrophils # Seg Neutrophils # Man Lymphocytes # (Manual) Monocytes # (Manual) Eosinophils # (Manual) Basophils # (Manual) POC ABG pH 7.336 L ABG pH POC ABG pCO2 55.1 H POC ABG pO2 ABG pO2 ABG HCO3 ABG O2 Saturation ABG Hemoglobin POC Sodium POC Potassium Sodium Potassium Chloride 96.9 L Carbon Dioxide POC BUN BUN 29 H Creatinine 4.6 H Glucose POC Glucose 108 H Calcium 8.3 L Total Protein Albumin PTH Pre-Incision PTH Post-Excision 06/08/17 06/09/17 06/09/17 14:22 11:42 11:42 WBC Hgb Hct POC Hct MCV 76 L MCH 24 L RDW 18.3 H [place] % (Auto) [place] # Seg Neutrophils % Seg Neuts % (Manual) 80.0 H Lymphocytes % (Manual) 10.0 L Monocytes % (Manual) Nucleated RBC % 2.0 H Seg Neutrophils # Seg Neutrophils # Man Lymphocytes # (Manual) 1.0 L Monocytes # (Manual) Eosinophils # (Manual) Basophils # (Manual) POC ABG pH ABG pH POC ABG pCO2 52.8 H POC ABG pO2 77 L ABG pO2 ABG HCO3 ABG O2 Saturation ABG Hemoglobin POC Sodium POC Potassium Sodium Potassium 5.4 H D Chloride 97.1 L Carbon Dioxide POC BUN BUN 58 H Creatinine 6.6 H Glucose POC Glucose Calcium 7.2 L Total Protein Albumin PTH Pre-Incision PTH Post-Excision 06/09/17 06/10/17 06/10/17 12:04 03:29 03:29 WBC 13.7 H Hgb Hct POC Hct MCV 77 L MCH 24 L RDW 17.9 H [place] % (Auto) [place] # Seg Neutrophils % Seg Neuts % (Manual) 82.0 H Lymphocytes % (Manual) 7.0 L Monocytes % (Manual) Nucleated RBC % 6.0 H Seg Neutrophils # Seg Neutrophils # Man 11.2 H Lymphocytes # (Manual) 1.0 L Monocytes # (Manual) Eosinophils # (Manual) Basophils # (Manual) POC ABG pH ABG pH POC ABG pCO2 POC ABG pO2 ABG pO2 ABG HCO3 ABG O2 Saturation ABG Hemoglobin POC Sodium POC Potassium Sodium Potassium Chloride 94.2 L Carbon Dioxide POC BUN BUN 32 H Creatinine 4.6 H Glucose 106 H POC Glucose 106 H Calcium 8.0 L Total Protein Albumin PTH Pre-Incision PTH Post-Excision 06/10/17 06/11/17 06/11/17 05:27 06:00 06:00 WBC 11.8 H Hgb Hct POC Hct MCV 77 L MCH 24 L RDW 18.3 H [place] % (Auto) [place] # Seg Neutrophils % Seg Neuts % (Manual) 88.0 H Lymphocytes % (Manual) 7.0 L Monocytes % (Manual) Nucleated RBC % 1.0 H Seg Neutrophils # Seg Neutrophils # Man 10.4 H Lymphocytes # (Manual) 0.8 L Monocytes # (Manual) Eosinophils # (Manual) Basophils # (Manual) POC ABG pH ABG pH POC ABG pCO2 POC ABG pO2 ABG pO2 ABG HCO3 ABG O2 Saturation ABG Hemoglobin POC Sodium POC Potassium Sodium Potassium Chloride Carbon Dioxide POC BUN BUN 53 H Creatinine 6.0 H Glucose POC Glucose 106 H Calcium 6.3 L D Total Protein Albumin PTH Pre-Incision PTH Post-Excision 06/11/17 06/11/17 06/11/17 06:51 12:10 16:54 WBC Hgb Hct POC Hct MCV MCH RDW [place] % (Auto) [place] # Seg Neutrophils % Seg Neuts % (Manual) Lymphocytes % (Manual) Monocytes % (Manual) Nucleated RBC % Seg Neutrophils # Seg Neutrophils # Man Lymphocytes # (Manual) Monocytes # (Manual) Eosinophils # (Manual) Basophils # (Manual) POC ABG pH 7.556 H ABG pH POC ABG pCO2 34.8 L POC ABG pO2 125 H ABG pO2 ABG HCO3 ABG O2 Saturation ABG Hemoglobin POC Sodium POC Potassium Sodium Potassium Chloride Carbon Dioxide POC BUN BUN Creatinine Glucose POC Glucose 115 H 106 H Calcium Total Protein Albumin PTH Pre-Incision PTH Post-Excision 06/11/17 06/12/17 06/12/17 20:20 00:06 04:20 WBC Hgb Hct POC Hct MCV MCH RDW [place] % (Auto) [place] # Seg Neutrophils % Seg Neuts % (Manual) Lymphocytes % (Manual) Monocytes % (Manual) Nucleated RBC % Seg Neutrophils # Seg Neutrophils # Man Lymphocytes # (Manual) Monocytes # (Manual) Eosinophils # (Manual) Basophils # (Manual) POC ABG pH ABG pH 7.512 H 7.514 H POC ABG pCO2 POC ABG pO2 ABG pO2 148.5 H 209.1 H ABG HCO3 ABG O2 Saturation 99.3 H ABG Hemoglobin POC Sodium POC Potassium Sodium Potassium Chloride Carbon Dioxide POC BUN BUN Creatinine Glucose POC Glucose 108 H Calcium Total Protein Albumin PTH Pre-Incision PTH Post-Excision 06/12/17 06/12/17 06/12/17 05:24 05:30 05:30 WBC 14.3 H Hgb Hct POC Hct MCV 75 L MCH 24 L RDW 18.5 H [place] % (Auto) [place] # Seg Neutrophils % Seg Neuts % (Manual) 73.0 H Lymphocytes % (Manual) 6.0 L Monocytes % (Manual) 9.0 H Nucleated RBC % 1.0 H Seg Neutrophils # Seg Neutrophils # Man 10.4 H Lymphocytes # (Manual) 0.9 L Monocytes # (Manual) 1.3 H Eosinophils # (Manual) Basophils # (Manual) POC ABG pH ABG pH POC ABG pCO2 POC ABG pO2 ABG pO2 ABG HCO3 ABG O2 Saturation ABG Hemoglobin POC Sodium POC Potassium Sodium 131 L D Potassium Chloride 90.6 L Carbon Dioxide POC BUN BUN 51 H Creatinine 6.5 H Glucose POC Glucose 109 H Calcium Total Protein Albumin PTH Pre-Incision PTH Post-Excision 06/12/17 06/13/17 06/13/17 11:46 04:15 04:55 WBC 17.9 H Hgb Hct POC Hct MCV 75 L MCH 24 L RDW 18.5 H [place] % (Auto) [place] # Seg Neutrophils % Seg Neuts % (Manual) 75.0 H Lymphocytes % (Manual) 6.0 L Monocytes % (Manual) 9.0 H Nucleated RBC % Seg Neutrophils # Seg Neutrophils # Man 13.4 H Lymphocytes # (Manual) 1.1 L Monocytes # (Manual) 1.6 H Eosinophils # (Manual) 0.5 H Basophils # (Manual) 0.2 H POC ABG pH ABG pH POC ABG pCO2 POC ABG pO2 ABG pO2 131.0 H ABG HCO3 ABG O2 Saturation ABG Hemoglobin 10.5 L POC Sodium POC Potassium Sodium Potassium Chloride Carbon Dioxide POC BUN BUN Creatinine Glucose POC Glucose 116 H Calcium Total Protein Albumin PTH Pre-Incision PTH Post-Excision 06/13/17 06/13/17 06/14/17 04:55 17:23 04:30 WBC 17.8 H Hgb 9.7 L Hct POC Hct MCV 76 L MCH 24 L RDW 18.3 H [place] % (Auto) [place] # Seg Neutrophils % Seg Neuts % (Manual) 74.0 H Lymphocytes % (Manual) 6.0 L Monocytes % (Manual) 9.0 H Nucleated RBC % Seg Neutrophils # Seg Neutrophils # Man 13.2 H Lymphocytes # (Manual) 1.1 L Monocytes # (Manual) 1.6 H Eosinophils # (Manual) Basophils # (Manual) POC ABG pH ABG pH POC ABG pCO2 POC ABG pO2 ABG pO2 ABG HCO3 ABG O2 Saturation ABG Hemoglobin POC Sodium POC Potassium Sodium 128 L Potassium Chloride 88.9 L Carbon Dioxide POC BUN BUN 73 H Creatinine 7.6 H Glucose 115 H POC Glucose 113 H Calcium 8.1 L Total Protein Albumin PTH Pre-Incision PTH Post-Excision 06/14/17 06/14/17 06/14/17 04:30 05:30 05:49 WBC Hgb Hct POC Hct MCV MCH RDW [place] % (Auto) [place] # Seg Neutrophils % Seg Neuts % (Manual) Lymphocytes % (Manual) Monocytes % (Manual) Nucleated RBC % Seg Neutrophils # Seg Neutrophils # Man Lymphocytes # (Manual) Monocytes # (Manual) Eosinophils # (Manual) Basophils # (Manual) POC ABG pH ABG pH POC ABG pCO2 POC ABG pO2 ABG pO2 109.3 H ABG HCO3 ABG O2 Saturation ABG Hemoglobin 10.7 L POC Sodium POC Potassium Sodium 124 L Potassium Chloride 84.3 L Carbon Dioxide POC BUN BUN 86 H Creatinine 9.0 H Glucose 106 H POC Glucose 111 H Calcium 8.1 L Total Protein Albumin PTH Pre-Incision PTH Post-Excision 06/14/17 06/14/17 06/14/17 12:27 16:05 23:35 WBC Hgb Hct POC Hct MCV MCH RDW [place] % (Auto) [place] # Seg Neutrophils % Seg Neuts % (Manual) Lymphocytes % (Manual) Monocytes % (Manual) Nucleated RBC % Seg Neutrophils # Seg Neutrophils # Man Lymphocytes # (Manual) Monocytes # (Manual) Eosinophils # (Manual) Basophils # (Manual) POC ABG pH ABG pH POC ABG pCO2 POC ABG pO2 ABG pO2 ABG HCO3 ABG O2 Saturation ABG Hemoglobin POC Sodium POC Potassium Sodium Potassium Chloride Carbon Dioxide POC BUN BUN Creatinine Glucose POC Glucose 139 H 133 H 147 H Calcium Total Protein Albumin PTH Pre-Incision PTH Post-Excision 06/15/17 06/15/17 06/15/17 05:05 06:00 06:00 WBC 21.4 H Hgb 9.2 L Hct POC Hct MCV 77 L MCH 23 L RDW 18.8 H [place] % (Auto) [place] # Seg Neutrophils % Seg Neuts % (Manual) 86.0 H Lymphocytes % (Manual) 2.0 L Monocytes % (Manual) Nucleated RBC % 1.0 H Seg Neutrophils # Seg Neutrophils # Man 18.4 H Lymphocytes # (Manual) 0.4 L Monocytes # (Manual) 1.5 H Eosinophils # (Manual) Basophils # (Manual) POC ABG pH ABG pH POC ABG pCO2 POC ABG pO2 ABG pO2 ABG HCO3 ABG O2 Saturation ABG Hemoglobin POC Sodium POC Potassium Sodium 132 L D Potassium Chloride 91.5 L Carbon Dioxide POC BUN BUN 59 H Creatinine 6.6 H Glucose 116 H POC Glucose 145 H Calcium Total Protein Albumin PTH Pre-Incision PTH Post-Excision 06/15/17 06/15/17 06/15/17 12:04 17:55 23:40 WBC Hgb Hct POC Hct MCV MCH RDW [place] % (Auto) [place] # Seg Neutrophils % Seg Neuts % (Manual) Lymphocytes % (Manual) Monocytes % (Manual) Nucleated RBC % Seg Neutrophils # Seg Neutrophils # Man Lymphocytes # (Manual) Monocytes # (Manual) Eosinophils # (Manual) Basophils # (Manual) POC ABG pH ABG pH POC ABG pCO2 POC ABG pO2 ABG pO2 ABG HCO3 ABG O2 Saturation ABG Hemoglobin POC Sodium POC Potassium Sodium Potassium Chloride Carbon Dioxide POC BUN BUN Creatinine Glucose POC Glucose 109 H 119 H 123 H Calcium Total Protein Albumin PTH Pre-Incision PTH Post-Excision 06/15/17 06/16/17 06/16/17 Unknown 06:00 08:45 WBC 21.9 H Hgb 8.9 L Hct 29.0 L POC Hct MCV 77 L MCH 24 L RDW 18.1 H [place] % (Auto) 11.2 H [place] # 1.6 H Seg Neutrophils % 82.8 H Seg Neuts % (Manual) 78.0 H Lymphocytes % (Manual) 3.0 L Monocytes % (Manual) 9.0 H Nucleated RBC % 1.0 H Seg Neutrophils # 12.2 H Seg Neutrophils # Man 17.1 H Lymphocytes # (Manual) 0.7 L Monocytes # (Manual) 2.0 H Eosinophils # (Manual) Basophils # (Manual) 0.2 H POC ABG pH ABG pH POC ABG pCO2 POC ABG pO2 ABG pO2 115.7 H ABG HCO3 27.6 H ABG O2 Saturation ABG Hemoglobin 9.2 L POC Sodium POC Potassium Sodium Potassium 2.7 L* D Chloride 111.6 H Carbon Dioxide 17 L D POC BUN BUN 52 H Creatinine 5.0 H Glucose POC Glucose Calcium 5.3 L* D Total Protein Albumin PTH Pre-Incision PTH Post-Excision 06/16/17 09:25 WBC Hgb Hct POC Hct MCV MCH RDW [place] % (Auto) [place] # Seg Neutrophils % Seg Neuts % (Manual) Lymphocytes % (Manual) Monocytes % (Manual) Nucleated RBC % Seg Neutrophils # Seg Neutrophils # Man Lymphocytes # (Manual) Monocytes # (Manual) Eosinophils # (Manual) Basophils # (Manual) POC ABG pH ABG pH POC ABG pCO2 POC ABG pO2 ABG pO2 102.0 H ABG HCO3 27.1 H ABG O2 Saturation ABG Hemoglobin 9.0 L POC Sodium POC Potassium Sodium Potassium Chloride Carbon Dioxide POC BUN BUN Creatinine Glucose POC Glucose Calcium Total Protein Albumin PTH Pre-Incision PTH Post-Excision
[2017-06-16 11:59] LABS: Calcium 10.6 mg/dL (8.4-10.2); Chloride 95.2 mmol/L (98-107); Potassium 3.7 mmol/L (3.6-5.0)
[2017-06-16] MEDS ORDERED: KCL 20MEQ/100ML 20 MEQ/100 ML BAG IV SCH (12:00)
[2017-06-16] MEDS: PROCRIT IV PRN (12:50)
[2017-06-16] MEDS: NACL 0.9% 1000 ML 1,000 ML IV SCH (15:31)
[2017-06-16 18:55] LABS: Chloride 97.4 mmol/L (98-107); Potassium 4.1 mmol/L (3.6-5.0)
[2017-06-17] MEDS: PROAMATINE PO SCH ×3 (06:00→21:25)
[2017-06-17 06:34] LABS: Calcium 10.1 mg/dL (8.4-10.2); Chloride 94.5 mmol/L (98-107); Potassium 4.1 mmol/L (3.6-5.0)
--- NOTE | 2017-06-17 08:07 | XRay Report ---
AP CHEST :06/17/17 01:58 CLINICAL: Intubated.Follow up respiratory failure. COMPARISON:Previous day. FINDINGS: The endotracheal tube is in satisfactory position. The feeding tube is satisfactory. No other tubes or lines. Stable cardiomegaly. Decreased central vascular congestion. Lungs are normally expanded and clear. No pneumothorax. IMPRESSION: Interval improvement with decreased central vascular congestion.Cardiomegaly but no pulmonary edema.
[2017-06-17] MEDS ORDERED: NACL 0.9% 100 ML IV PRN (08:12)
--- NOTE | 2017-06-17 08:15 | Progress Note ---
Assessment and Plan Impression: * ESRD * Hypertension * s/p Parathyroidectomy * Acute CVA * Acute respiratory failure * Anemia secondary to ESRD * Hyponatremia Plan: * Hemodialysis per MWF schedule * Adjust bath to 3k/3Ca bath as serum calcium has improved * Continue current calcium supplement * Vent management per critical care * Epogen TIW * Nutrition per primary team * Strict I/O * Son at bedside - update Subjective Date of service: 06/17/17 Principal diagnosis: ARM/MV/Post hyperparathy./ESRD Interval history: No acute events overnight. Objective - Vital Signs Vital signs: Vital Signs - 12hr 06/16/17 06/16/17 06/16/17 20:30 21:00 21:30 Temperature Pulse Rate 76 69 70 Respiratory 15 17 17 Rate Blood Pressure 102/61 109/62 112/62 O2 Sat by Pulse Oximetry 06/16/17 06/16/17 06/16/17 22:00 22:30 23:00 Temperature Pulse Rate 68 68 66 Respiratory 15 16 14 Rate Blood Pressure 109/64 120/63 100/54 O2 Sat by Pulse Oximetry 06/16/17 06/16/17 06/16/17 23:29 23:30 23:35 Temperature Pulse Rate 64 62 62 Respiratory 16 16 3 L Rate Blood Pressure 98/52 98/52 98/55 O2 Sat by Pulse 100 100 Oximetry 06/17/17 06/17/17 06/17/17 00:00 00:30 01:00 Temperature 99.3 F Pulse Rate 69 67 67 Respiratory 14 17 15 Rate Blood Pressure 115/56 100/53 109/61 O2 Sat by Pulse Oximetry 06/17/17 06/17/17 06/17/17 01:30 02:00 02:30 Temperature Pulse Rate 68 67 67 Respiratory 17 15 16 Rate Blood Pressure 108/63 104/59 95/54 O2 Sat by Pulse 96 Oximetry 06/17/17 06/17/17 06/17/17 03:00 03:31 03:57 Temperature Pulse Rate 65 71 66 Respiratory 16 15 4 L Rate Blood Pressure 80/44 97/54 101/61 O2 Sat by Pulse 98 99 99 Oximetry 06/17/17 06/17/17 06/17/17 04:00 04:30 05:00 Temperature 99.0 F Pulse Rate 65 67 68 Respiratory 14 17 21 Rate Blood Pressure 111/63 107/58 124/69 O2 Sat by Pulse 100 100 Oximetry 06/17/17 06/17/17 06/17/17 05:30 06:00 06:05 Temperature Pulse Rate 63 62 68 Respiratory 14 15 20 Rate Blood Pressure 99/53 95/52 99/53 O2 Sat by Pulse 98 98 100 Oximetry 06/17/17 06/17/17 06/17/17 06:30 07:00 07:30 Temperature Pulse Rate 65 64 65 Respiratory 24 21 22 Rate Blood Pressure 111/62 113/56 105/59 O2 Sat by Pulse 99 100 Oximetry 06/17/17 06/17/17 07:35 07:49 Temperature 98.9 F Pulse Rate Respiratory 22 Rate Blood Pressure O2 Sat by Pulse 100 Oximetry - General Appearance General appearance: intubated EENT: ATNC, other (ETT in place) Respiratory: Present: Clear to Ascultation Cardiology: regular, S1S2 Gastrointestinal: normal, no tenderness, no distended, obese Integumentary: no rash Musculoskeletal: other (trace edema) - Lab 06/16/17 08:45 06/17/17 04:00 Most recent lab results ABG pH 7.357 pH Units (7.350-7.450) 06/16/17 09:25 ABG pCO2 49.4 mm Hg 06/16/17 09:25 ABG pO2 102.0 mm Hg (80.0-90.0) H 06/16/17 09:25 ABG HCO3 27.1 mmol/L (20.0-26.0) H 06/16/17 09:25 ABG O2 Saturation 97.5 % (95.0-99.0) 06/16/17 09:25 Calcium 10.1 mg/dL (8.4-10.2) 06/17/17 04:00 Phosphorus 4.50 mg/dL (2.5-4.5) 06/06/17 07:13 Magnesium 1.90 mg/dL (1.7-2.3) 06/16/17 11:00
--- NOTE | 2017-06-17 09:30 | Progress Note ---
Assessment and Plan 66 y/o female with post-op respiratory failure, likely from pulmonary edema and possible airway edema with end stage renal disease. 1. Agreed to trach. Surgery can discuss the placement of peg tube during their discussion of the risks and benefits of the tracheotomy. They are to come by today. 2. Surgery to perform trach and peg 3. No sedation, continue to leave off 4. Follow up Neurology recs, none since 06/12 5. Overall prognosis is guarded to poor 6. HD per renal CCT 31 minutes. Subjective Date of service: 06/17/17 Principal diagnosis: ARM/MV/Post hyperparathy./ESRD Interval history: Family has agreed to trach, will likely need peg. Spoke with surgeon who performed the parathyroidectomy. They will come by today to obtain consent and figure out when surgery will take place. Patient still not following commands. Opens eyes occasionally. Son at bedside. Objective Vital Signs - 12hr 06/16/17 06/16/17 06/16/17 21:30 22:00 22:30 Temperature Pulse Rate 70 68 68 Respiratory 17 15 16 Rate Blood Pressure 112/62 109/64 120/63 O2 Sat by Pulse Oximetry 06/16/17 06/16/17 06/16/17 23:00 23:29 23:30 Temperature Pulse Rate 66 64 62 Respiratory 14 16 16 Rate Blood Pressure 100/54 98/52 98/52 O2 Sat by Pulse 100 Oximetry 06/16/17 06/17/17 06/17/17 23:35 00:00 00:30 Temperature 99.3 F Pulse Rate 62 69 67 Respiratory 3 L 14 17 Rate Blood Pressure 98/55 115/56 100/53 O2 Sat by Pulse 100 Oximetry 06/17/17 06/17/17 06/17/17 01:00 01:30 02:00 Temperature Pulse Rate 67 68 67 Respiratory 15 17 15 Rate Blood Pressure 109/61 108/63 104/59 O2 Sat by Pulse Oximetry 06/17/17 06/17/17 06/17/17 02:30 03:00 03:31 Temperature Pulse Rate 67 65 71 Respiratory 16 16 15 Rate Blood Pressure 95/54 80/44 97/54 O2 Sat by Pulse 96 98 99 Oximetry 06/17/17 06/17/17 06/17/17 03:57 04:00 04:30 Temperature 99.0 F Pulse Rate 66 65 67 Respiratory 4 L 14 17 Rate Blood Pressure 101/61 111/63 107/58 O2 Sat by Pulse 99 100 Oximetry 06/17/17 06/17/17 06/17/17 05:00 05:30 06:00 Temperature Pulse Rate 68 63 62 Respiratory 21 14 15 Rate Blood Pressure 124/69 99/53 95/52 O2 Sat by Pulse 100 98 98 Oximetry 06/17/17 06/17/17 06/17/17 06:05 06:30 07:00 Temperature Pulse Rate 68 65 64 Respiratory 20 24 21 Rate Blood Pressure 99/53 111/62 113/56 O2 Sat by Pulse 100 99 100 Oximetry 06/17/17 06/17/17 06/17/17 07:30 07:35 07:49 Temperature 98.9 F Pulse Rate 65 Respiratory 22 22 Rate Blood Pressure 105/59 O2 Sat by Pulse 100 Oximetry 06/17/17 06/17/17 06/17/17 08:00 08:30 09:00 Temperature Pulse Rate 70 69 70 Respiratory 25 H 23 23 Rate Blood Pressure 104/58 90/45 94/47 O2 Sat by Pulse 99 98 Oximetry Constitutional: no acute distress, other (intubated, some response to tactile stimulation otherwise nonresponsive) Eyes: non-icteric ENT: other (orally intubated) Neck: supple, no JVD, other (no stridor) Effort: normal Ascultation: Bilateral: clear, diminished breath sounds, rales, other (coarse BS bilaterally) Percussion: Bilateral: not dull Cardiovascular: regular rate and rhythm Gastrointestinal: normoactive bowel sounds, soft, non-tender, non-distended, other (obese) Integumentary: normal Extremities: no cyanosis, no edema, pink and warm, edema Neurologic: other (altered mentation, R-hemiparesis,GCS 3-4) Psychiatric: mood appropriate, affect normal CBC and BMP: 06/16/17 08:45 06/17/17 04:00 ABG, PT/INR, D-dimer: ABG POC ABG pH 7.556 (7.35-7.45) H 06/11/17 06:51 ABG pH 7.357 pH Units (7.350-7.450) 06/16/17 09:25 POC ABG pCO2 34.8 (35-45) L 06/11/17 06:51 ABG pCO2 49.4 mm Hg 06/16/17 09:25 POC ABG pO2 125 (80-105) H 06/11/17 06:51 ABG pO2 102.0 mm Hg (80.0-90.0) H 06/16/17 09:25 POC ABG HCO3 30.9 06/11/17 06:51 POC ABG Total CO2 32 06/11/17 06:51 POC ABG O2 Sat 99 06/11/17 06:51 ABG O2 Saturation 97.5 % (95.0-99.0) 06/16/17 09:25 PT/INR, D-dimer PT 13.5 Sec. (12.2-14.9) 06/09/17 16:55 INR 0.98 (0.87-1.13) 06/09/17 16:55 Abnormal lab findings: Abnormal Labs 06/04/17 06/04/17 06/04/17 00:01 12:50 13:55 WBC 11.4 H Hgb Hct POC Hct MCV 76 L MCH 23 L RDW 18.5 H Cotton % (Auto) Cotton # Seg Neutrophils % Seg Neuts % (Manual) 89.0 H Lymphocytes % (Manual) 6.0 L Monocytes % (Manual) Nucleated RBC % Seg Neutrophils # Seg Neutrophils # Man 10.1 H Lymphocytes # (Manual) 0.7 L Monocytes # (Manual) Eosinophils # (Manual) Basophils # (Manual) POC ABG pH ABG pH POC ABG pCO2 POC ABG pO2 ABG pO2 ABG HCO3 ABG O2 Saturation ABG Hemoglobin POC Sodium POC Potassium Sodium Potassium 5.1 H 5.2 H Chloride Carbon Dioxide POC BUN BUN 48 H Creatinine 6.2 H Glucose POC Glucose Calcium Total Protein Albumin PTH Pre-Incision PTH Post-Excision 06/04/17 06/04/17 06/04/17 13:55 16:10 16:16 WBC Hgb Hct POC Hct 37 L MCV MCH RDW Cotton % (Auto) Cotton # Seg Neutrophils % Seg Neuts % (Manual) Lymphocytes % (Manual) Monocytes % (Manual) Nucleated RBC % Seg Neutrophils # Seg Neutrophils # Man Lymphocytes # (Manual) Monocytes # (Manual) Eosinophils # (Manual) Basophils # (Manual) POC ABG pH 7.306 L ABG pH POC ABG pCO2 58.7 H POC ABG pO2 338 H ABG pO2 ABG HCO3 ABG O2 Saturation ABG Hemoglobin POC Sodium 135 L POC Potassium 5.2 H Sodium Potassium Chloride Carbon Dioxide POC BUN 44 H BUN Creatinine Glucose POC Glucose 183 H Calcium Total Protein Albumin PTH Pre-Incision 641.9 H PTH Post-Excision 154.7 H 06/04/17 06/04/17 06/04/17 16:22 20:44 21:29 WBC Hgb Hct POC Hct MCV MCH RDW Cotton % (Auto) Cotton # Seg Neutrophils % Seg Neuts % (Manual) Lymphocytes % (Manual) Monocytes % (Manual) Nucleated RBC % Seg Neutrophils # Seg Neutrophils # Man Lymphocytes # (Manual) Monocytes # (Manual) Eosinophils # (Manual) Basophils # (Manual) POC ABG pH 7.484 H ABG pH POC ABG pCO2 POC ABG pO2 ABG pO2 ABG HCO3 ABG O2 Saturation ABG Hemoglobin POC Sodium 137 L POC Potassium 5.3 H Sodium Potassium 5.2 H Chloride Carbon Dioxide POC BUN 45 H BUN 51 H Creatinine 6.5 H Glucose 119 H POC Glucose 176 H Calcium Total Protein Albumin PTH Pre-Incision PTH Post-Excision 06/05/17 06/05/17 06/05/17 03:31 11:44 11:44 WBC 13.4 H Hgb Hct POC Hct MCV 75 L MCH 23 L RDW 18.2 H Cotton % (Auto) Cotton # Seg Neutrophils % Seg Neuts % (Manual) Lymphocytes % (Manual) Monocytes % (Manual) Nucleated RBC % Seg Neutrophils # Seg Neutrophils # Man Lymphocytes # (Manual) Monocytes # (Manual) Eosinophils # (Manual) Basophils # (Manual) POC ABG pH ABG pH POC ABG pCO2 POC ABG pO2 75 L ABG pO2 ABG HCO3 ABG O2 Saturation ABG Hemoglobin POC Sodium POC Potassium Sodium Potassium 5.8 H Chloride Carbon Dioxide POC BUN BUN 56 H Creatinine 7.0 H Glucose 111 H POC Glucose Calcium 8.2 L Total Protein 6.2 L Albumin 3.1 L PTH Pre-Incision PTH Post-Excision 06/06/17 06/06/17 06/07/17 05:07 07:13 03:53 WBC Hgb Hct POC Hct MCV MCH RDW Cotton % (Auto) Cotton # Seg Neutrophils % Seg Neuts % (Manual) Lymphocytes % (Manual) Monocytes % (Manual) Nucleated RBC % Seg Neutrophils # Seg Neutrophils # Man Lymphocytes # (Manual) Monocytes # (Manual) Eosinophils # (Manual) Basophils # (Manual) POC ABG pH ABG pH POC ABG pCO2 POC ABG pO2 116 H 137 H ABG pO2 ABG HCO3 ABG O2 Saturation ABG Hemoglobin POC Sodium POC Potassium Sodium Potassium Chloride Carbon Dioxide POC BUN BUN 32 H Creatinine 4.9 H Glucose 115 H POC Glucose Calcium 7.9 L Total Protein 5.7 L Albumin 3.3 L PTH Pre-Incision PTH Post-Excision 06/07/17 06/07/17 06/07/17 05:21 05:21 16:54 WBC Hgb Hct POC Hct MCV 75 L MCH 24 L RDW 18.7 H Cotton % (Auto) Cotton # Seg Neutrophils % Seg Neuts % (Manual) Lymphocytes % (Manual) Monocytes % (Manual) Nucleated RBC % Seg Neutrophils # Seg Neutrophils # Man Lymphocytes # (Manual) Monocytes # (Manual) Eosinophils # (Manual) Basophils # (Manual) POC ABG pH ABG pH POC ABG pCO2 POC ABG pO2 ABG pO2 ABG HCO3 ABG O2 Saturation ABG Hemoglobin POC Sodium POC Potassium Sodium Potassium 5.4 H Chloride Carbon Dioxide POC BUN BUN 52 H Creatinine 6.2 H Glucose 107 H POC Glucose 110 H Calcium 8.0 L Total Protein Albumin PTH Pre-Incision PTH Post-Excision 06/07/17 06/07/17 06/08/17 17:38 23:32 04:00 WBC Hgb Hct POC Hct MCV 77 L MCH 23 L RDW 18.3 H Cotton % (Auto) Cotton # Seg Neutrophils % Seg Neuts % (Manual) 78.0 H Lymphocytes % (Manual) Monocytes % (Manual) Nucleated RBC % 3.0 H Seg Neutrophils # Seg Neutrophils # Man 7.8 H Lymphocytes # (Manual) Monocytes # (Manual) Eosinophils # (Manual) Basophils # (Manual) POC ABG pH 7.310 L ABG pH POC ABG pCO2 51.9 H POC ABG pO2 ABG pO2 ABG HCO3 ABG O2 Saturation ABG Hemoglobin POC Sodium POC Potassium Sodium Potassium Chloride Carbon Dioxide POC BUN BUN Creatinine Glucose POC Glucose 63 L Calcium Total Protein Albumin PTH Pre-Incision PTH Post-Excision 06/08/17 06/08/17 06/08/17 04:00 10:51 11:25 WBC Hgb Hct POC Hct MCV MCH RDW Cotton % (Auto) Cotton # Seg Neutrophils % Seg Neuts % (Manual) Lymphocytes % (Manual) Monocytes % (Manual) Nucleated RBC % Seg Neutrophils # Seg Neutrophils # Man Lymphocytes # (Manual) Monocytes # (Manual) Eosinophils # (Manual) Basophils # (Manual) POC ABG pH 7.336 L ABG pH POC ABG pCO2 55.1 H POC ABG pO2 ABG pO2 ABG HCO3 ABG O2 Saturation ABG Hemoglobin POC Sodium POC Potassium Sodium Potassium Chloride 96.9 L Carbon Dioxide POC BUN BUN 29 H Creatinine 4.6 H Glucose POC Glucose 108 H Calcium 8.3 L Total Protein Albumin PTH Pre-Incision PTH Post-Excision 06/08/17 06/09/17 06/09/17 14:22 11:42 11:42 WBC Hgb Hct POC Hct MCV 76 L MCH 24 L RDW 18.3 H Cotton % (Auto) Cotton # Seg Neutrophils % Seg Neuts % (Manual) 80.0 H Lymphocytes % (Manual) 10.0 L Monocytes % (Manual) Nucleated RBC % 2.0 H Seg Neutrophils # Seg Neutrophils # Man Lymphocytes # (Manual) 1.0 L Monocytes # (Manual) Eosinophils # (Manual) Basophils # (Manual) POC ABG pH ABG pH POC ABG pCO2 52.8 H POC ABG pO2 77 L ABG pO2 ABG HCO3 ABG O2 Saturation ABG Hemoglobin POC Sodium POC Potassium Sodium Potassium 5.4 H D Chloride 97.1 L Carbon Dioxide POC BUN BUN 58 H Creatinine 6.6 H Glucose POC Glucose Calcium 7.2 L Total Protein Albumin PTH Pre-Incision PTH Post-Excision 06/09/17 06/10/17 06/10/17 12:04 03:29 03:29 WBC 13.7 H Hgb Hct POC Hct MCV 77 L MCH 24 L RDW 17.9 H Cotton % (Auto) Cotton # Seg Neutrophils % Seg Neuts % (Manual) 82.0 H Lymphocytes % (Manual) 7.0 L Monocytes % (Manual) Nucleated RBC % 6.0 H Seg Neutrophils # Seg Neutrophils # Man 11.2 H Lymphocytes # (Manual) 1.0 L Monocytes # (Manual) Eosinophils # (Manual) Basophils # (Manual) POC ABG pH ABG pH POC ABG pCO2 POC ABG pO2 ABG pO2 ABG HCO3 ABG O2 Saturation ABG Hemoglobin POC Sodium POC Potassium Sodium Potassium Chloride 94.2 L Carbon Dioxide POC BUN BUN 32 H Creatinine 4.6 H Glucose 106 H POC Glucose 106 H Calcium 8.0 L Total Protein Albumin PTH Pre-Incision PTH Post-Excision 1006/11/17 06/11/17 05:27 06:00 06:00 WBC 11.8 H Hgb Hct POC Hct MCV 77 L MCH 24 L RDW 18.3 H Cotton % (Auto) Cotton # Seg Neutrophils % Seg Neuts % (Manual) 88.0 H Lymphocytes % (Manual) 7.0 L Monocytes % (Manual) Nucleated RBC % 1.0 H Seg Neutrophils # Seg Neutrophils # Man 10.4 H Lymphocytes # (Manual) 0.8 L Monocytes # (Manual) Eosinophils # (Manual) Basophils # (Manual) POC ABG pH ABG pH POC ABG pCO2 POC ABG pO2 ABG pO2 ABG HCO3 ABG O2 Saturation ABG Hemoglobin POC Sodium POC Potassium Sodium Potassium Chloride Carbon Dioxide POC BUN BUN 53 H Creatinine 6.0 H Glucose POC Glucose 106 H Calcium 6.3 L D Total Protein Albumin PTH Pre-Incision PTH Post-Excision 06/11/17 06/11/17 06/11/17 06:51 12:10 16:54 WBC Hgb Hct POC Hct MCV MCH RDW Cotton % (Auto) Cotton # Seg Neutrophils % Seg Neuts % (Manual) Lymphocytes % (Manual) Monocytes % (Manual) Nucleated RBC % Seg Neutrophils # Seg Neutrophils # Man Lymphocytes # (Manual) Monocytes # (Manual) Eosinophils # (Manual) Basophils # (Manual) POC ABG pH 7.556 H ABG pH POC ABG pCO2 34.8 L POC ABG pO2 125 H ABG pO2 ABG HCO3 ABG O2 Saturation ABG Hemoglobin POC Sodium POC Potassium Sodium Potassium Chloride Carbon Dioxide POC BUN BUN Creatinine Glucose POC Glucose 115 H 106 H Calcium Total Protein Albumin PTH Pre-Incision PTH Post-Excision 06/11/17 06/12/17 06/12/17 20:20 00:06 04:20 WBC Hgb Hct POC Hct MCV MCH RDW Cotton % (Auto) Cotton # Seg Neutrophils % Seg Neuts % (Manual) Lymphocytes % (Manual) Monocytes % (Manual) Nucleated RBC % Seg Neutrophils # Seg Neutrophils # Man Lymphocytes # (Manual) Monocytes # (Manual) Eosinophils # (Manual) Basophils # (Manual) POC ABG pH ABG pH 7.512 H 7.514 H POC ABG pCO2 POC ABG pO2 ABG pO2 148.5 H 209.1 H ABG HCO3 ABG O2 Saturation 99.3 H ABG Hemoglobin POC Sodium POC Potassium Sodium Potassium Chloride Carbon Dioxide POC BUN BUN Creatinine Glucose POC Glucose 108 H Calcium Total Protein Albumin PTH Pre-Incision PTH Post-Excision 06/12/17 06/12/17 06/12/17 05:24 05:30 05:30 WBC 14.3 H Hgb Hct POC Hct MCV 75 L MCH 24 L RDW 18.5 H Cotton % (Auto) Cotton # Seg Neutrophils % Seg Neuts % (Manual) 73.0 H Lymphocytes % (Manual) 6.0 L Monocytes % (Manual) 9.0 H Nucleated RBC % 1.0 H Seg Neutrophils # Seg Neutrophils # Man 10.4 H Lymphocytes # (Manual) 0.9 L Monocytes # (Manual) 1.3 H Eosinophils # (Manual) Basophils # (Manual) POC ABG pH ABG pH POC ABG pCO2 POC ABG pO2 ABG pO2 ABG HCO3 ABG O2 Saturation ABG Hemoglobin POC Sodium POC Potassium Sodium 131 L D Potassium Chloride 90.6 L Carbon Dioxide POC BUN BUN 51 H Creatinine 6.5 H Glucose POC Glucose 109 H Calcium Total Protein Albumin PTH Pre-Incision PTH Post-Excision 06/12/17 06/13/17 06/13/17 11:46 04:15 04:55 WBC 17.9 H Hgb Hct POC Hct MCV 75 L MCH 24 L RDW 18.5 H Cotton % (Auto) Cotton # Seg Neutrophils % Seg Neuts % (Manual) 75.0 H Lymphocytes % (Manual) 6.0 L Monocytes % (Manual) 9.0 H Nucleated RBC % Seg Neutrophils # Seg Neutrophils # Man 13.4 H Lymphocytes # (Manual) 1.1 L Monocytes # (Manual) 1.6 H Eosinophils # (Manual) 0.5 H Basophils # (Manual) 0.2 H POC ABG pH ABG pH POC ABG pCO2 POC ABG pO2 ABG pO2 131.0 H ABG HCO3 ABG O2 Saturation ABG Hemoglobin 10.5 L POC Sodium POC Potassium Sodium Potassium Chloride Carbon Dioxide POC BUN BUN Creatinine Glucose POC Glucose 116 H Calcium Total Protein Albumin PTH Pre-Incision PTH Post-Excision 06/13/17 06/13/17 06/14/17 04:55 17:23 04:30 WBC 17.8 H Hgb 9.7 L Hct POC Hct MCV 76 L MCH 24 L RDW 18.3 H Cotton % (Auto) Cotton # Seg Neutrophils % Seg Neuts % (Manual) 74.0 H Lymphocytes % (Manual) 6.0 L Monocytes % (Manual) 9.0 H Nucleated RBC % Seg Neutrophils # Seg Neutrophils # Man 13.2 H Lymphocytes # (Manual) 1.1 L Monocytes # (Manual) 1.6 H Eosinophils # (Manual) Basophils # (Manual) POC ABG pH ABG pH POC ABG pCO2 POC ABG pO2 ABG pO2 ABG HCO3 ABG O2 Saturation ABG Hemoglobin POC Sodium POC Potassium Sodium 128 L Potassium Chloride 88.9 L Carbon Dioxide POC BUN BUN 73 H Creatinine 7.6 H Glucose 115 H POC Glucose 113 H Calcium 8.1 L Total Protein Albumin PTH Pre-Incision PTH Post-Excision 06/14/17 06/14/17 06/14/17 04:30 05:30 05:49 WBC Hgb Hct POC Hct MCV MCH RDW Cotton % (Auto) Cotton # Seg Neutrophils % Seg Neuts % (Manual) Lymphocytes % (Manual) Monocytes % (Manual) Nucleated RBC % Seg Neutrophils # Seg Neutrophils # Man Lymphocytes # (Manual) Monocytes # (Manual) Eosinophils # (Manual) Basophils # (Manual) POC ABG pH ABG pH POC ABG pCO2 POC ABG pO2 ABG pO2 109.3 H ABG HCO3 ABG O2 Saturation ABG Hemoglobin 10.7 L POC Sodium POC Potassium Sodium 124 L Potassium Chloride 84.3 L Carbon Dioxide POC BUN BUN 86 H Creatinine 9.0 H Glucose 106 H POC Glucose 111 H Calcium 8.1 L Total Protein Albumin PTH Pre-Incision PTH Post-Excision 06/14/17 06/14/17 06/14/17 12:27 16:05 23:35 WBC Hgb Hct POC Hct MCV MCH RDW Cotton % (Auto) Cotton # Seg Neutrophils % Seg Neuts % (Manual) Lymphocytes % (Manual) Monocytes % (Manual) Nucleated RBC % Seg Neutrophils # Seg Neutrophils # Man Lymphocytes # (Manual) Monocytes # (Manual) Eosinophils # (Manual) Basophils # (Manual) POC ABG pH ABG pH POC ABG pCO2 POC ABG pO2 ABG pO2 ABG HCO3 ABG O2 Saturation ABG Hemoglobin POC Sodium POC Potassium Sodium Potassium Chloride Carbon Dioxide POC BUN BUN Creatinine Glucose POC Glucose 139 H 133 H 147 H Calcium Total Protein Albumin PTH Pre-Incision PTH Post-Excision 06/15/17 06/15/17 06/15/17 05:05 06:00 06:00 WBC 21.4 H Hgb 9.2 L Hct POC Hct MCV 77 L MCH 23 L RDW 18.8 H Cotton % (Auto) Cotton # Seg Neutrophils % Seg Neuts % (Manual) 86.0 H Lymphocytes % (Manual) 2.0 L Monocytes % (Manual) Nucleated RBC % 1.0 H Seg Neutrophils # Seg Neutrophils # Man 18.4 H Lymphocytes # (Manual) 0.4 L Monocytes # (Manual) 1.5 H Eosinophils # (Manual) Basophils # (Manual) POC ABG pH ABG pH POC ABG pCO2 POC ABG pO2 ABG pO2 ABG HCO3 ABG O2 Saturation ABG Hemoglobin POC Sodium POC Potassium Sodium 132 L D Potassium Chloride 91.5 L Carbon Dioxide POC BUN BUN 59 H Creatinine 6.6 H Glucose 116 H POC Glucose 145 H Calcium Total Protein Albumin PTH Pre-Incision PTH Post-Excision 06/15/17 06/15/17 06/15/17 12:04 17:55 23:40 WBC Hgb Hct POC Hct MCV MCH RDW Cotton % (Auto) Cotton # Seg Neutrophils % Seg Neuts % (Manual) Lymphocytes % (Manual) Monocytes % (Manual) Nucleated RBC % Seg Neutrophils # Seg Neutrophils # Man Lymphocytes # (Manual) Monocytes # (Manual) Eosinophils # (Manual) Basophils # (Manual) POC ABG pH ABG pH POC ABG pCO2 POC ABG pO2 ABG pO2 ABG HCO3 ABG O2 Saturation ABG Hemoglobin POC Sodium POC Potassium Sodium Potassium Chloride Carbon Dioxide POC BUN BUN Creatinine Glucose POC Glucose 109 H 119 H 123 H Calcium Total Protein Albumin PTH Pre-Incision PTH Post-Excision 06/15/17 06/16/17 06/16/17 Unknown 06:00 08:45 WBC 21.9 H Hgb 8.9 L Hct 29.0 L POC Hct MCV 77 L MCH 24 L RDW 18.1 H Cotton % (Auto) 11.2 H Cotton # 1.6 H Seg Neutrophils % 82.8 H Seg Neuts % (Manual) 78.0 H Lymphocytes % (Manual) 3.0 L Monocytes % (Manual) 9.0 H Nucleated RBC % 1.0 H Seg Neutrophils # 12.2 H Seg Neutrophils # Man 17.1 H Lymphocytes # (Manual) 0.7 L Monocytes # (Manual) 2.0 H Eosinophils # (Manual) Basophils # (Manual) 0.2 H POC ABG pH ABG pH POC ABG pCO2 POC ABG pO2 ABG pO2 115.7 H ABG HCO3 27.6 H ABG O2 Saturation ABG Hemoglobin 9.2 L POC Sodium POC Potassium Sodium Potassium 2.7 L* D Chloride 111.6 H Carbon Dioxide 17 L D POC BUN BUN 52 H Creatinine 5.0 H Glucose POC Glucose Calcium 5.3 L* D Total Protein Albumin PTH Pre-Incision PTH Post-Excision 06/16/17 06/16/17 06/16/17 09:25 11:00 12:07 WBC Hgb Hct POC Hct MCV MCH RDW Cotton % (Auto) Cotton # Seg Neutrophils % Seg Neuts % (Manual) Lymphocytes % (Manual) Monocytes % (Manual) Nucleated RBC % Seg Neutrophils # Seg Neutrophils # Man Lymphocytes # (Manual) Monocytes # (Manual) Eosinophils # (Manual) Basophils # (Manual) POC ABG pH ABG pH POC ABG pCO2 POC ABG pO2 ABG pO2 102.0 H ABG HCO3 27.1 H ABG O2 Saturation ABG Hemoglobin 9.0 L POC Sodium POC Potassium Sodium Potassium Chloride 95.2 L Carbon Dioxide POC BUN BUN 60 H Creatinine 6.3 H Glucose 114 H POC Glucose 111 H Calcium 10.6 H D Total Protein Albumin PTH Pre-Incision PTH Post-Excision 06/16/17 06/16/17 06/17/17 17:20 17:51 00:10 WBC Hgb Hct POC Hct MCV MCH RDW Cotton % (Auto) Cotton # Seg Neutrophils % Seg Neuts % (Manual) Lymphocytes % (Manual) Monocytes % (Manual) Nucleated RBC % Seg Neutrophils # Seg Neutrophils # Man Lymphocytes # (Manual) Monocytes # (Manual) Eosinophils # (Manual) Basophils # (Manual) POC ABG pH ABG pH POC ABG pCO2 POC ABG pO2 ABG pO2 ABG HCO3 ABG O2 Saturation ABG Hemoglobin POC Sodium POC Potassium Sodium Potassium Chloride 97.4 L Carbon Dioxide POC BUN BUN 35 H Creatinine 4.4 H Glucose 116 H POC Glucose 128 H 114 H Calcium Total Protein Albumin PTH Pre-Incision PTH Post-Excision 06/17/17 06/17/17 04:00 05:42 WBC Hgb Hct POC Hct MCV MCH RDW Cotton % (Auto) Cotton # Seg Neutrophils % Seg Neuts % (Manual) Lymphocytes % (Manual) Monocytes % (Manual) Nucleated RBC % Seg Neutrophils # Seg Neutrophils # Man Lymphocytes # (Manual) Monocytes # (Manual) Eosinophils # (Manual) Basophils # (Manual) POC ABG pH ABG pH POC ABG pCO2 POC ABG pO2 ABG pO2 ABG HCO3 ABG O2 Saturation ABG Hemoglobin POC Sodium POC Potassium Sodium 136 L Potassium Chloride 94.5 L Carbon Dioxide POC BUN BUN 44 H Creatinine 5.3 H Glucose 107 H POC Glucose 110 H Calcium Total Protein Albumin PTH Pre-Incision PTH Post-Excision
[2017-06-17] MEDS: TUMS PO SCH ×3 (09:47→20:29)
[2017-06-17] MEDS: PEPCID PO SCH (09:47)
[2017-06-17] MEDS: ROCALTROL PO SCH (09:47)
[2017-06-17] MEDS: BABY ASPIRIN PO SCH (09:47)
[2017-06-17] MEDS: HEPARIN SUB-Q SCH ×2 (09:47→21:25)
--- NOTE | 2017-06-17 10:41 | Progress Note ---
Assessment and Plan Assessment and plan: 66-year-old female patient significant past medical history of hypertension and obstructive sleep apnea, ESRD on hemodialysis, breast cancer status post mastectomy underwent elective total parathyroidectomy and was admitted to ICU with respiratory failure requiring intubation, she unfortunately a stroke Acute left MCA stroke with right-sided weakness - Neurology consult appreciated -MR brain showed large left MCA acute infarct - on aspirin and statin - Cardiology consulted to rule out cardiac cause of stroke - Vascular surgery consulted no intervention needed -received mannitol for IC edema Acute hypoxic respiratory failure on MV > 96 hours - re-intubated, continue vent and planned for trache Metabolic Enchephalopathy -due to CVA and IC edema, imrpoving -continue mannitol Status post subtotal parathyroidectomy/Hypocalcemia - Continue postop care per surgery - continue to replete calcium as needed End-stage renal disease on hemodialysis - Continue hemodialysis as scheduled per nephrology Hyperkalemia -improved with HD Hypertension - Continue When necessary medication History of breast cancer status post mastectomy - Stable Morbid obesity with BMI of 47.8, - Nutrition input appreciated Moderate malnutrition -continue tube feeds Hyponatremia -reduced free water via G tube, and received NS, now improved Hypotension due to volume depletion Given IVF The high probability of a clinically significant, sudden or life threatening deterioration of the [respiratory] system(s) required my full and direct attention, intervention and personal management. The aggregate critical care time was [32] minutes. This time is in addition to time spent performing reported procedures but includes the following: [x] Data Review and interpretation [x] Patient assessment and monitoring of vital signs [x] Documentation [x] Medication orders and managementPatient would benefit by outpatient bariatric surgical evaluation for weight reduction program and medically stable CODE STATUS FULL History Interval history: Mentation is somewhat improved, she is more responsive remains intubated Hospitalist Physical - Physical exam Narrative exam: General.: Appears well, no distress, nontoxic HEENT: Moist mucous membranes, extraocular muscles intact, no lymphadenopathy Neck: supple Cardiac: S1-S2 heard Lungs: clear to auscultation bilaterally Abdomen: soft , nontender, nondistended, bowel sounds positive Extremities: no edema clubbing or cyanosis Skin: no rash or lesions Neurologic: Intubated, Patient is only moving left side of her body responds to painful stimuli, right side is not moving. does not obey commands Psych: appropriate behavior, appropriate mood, corporative, judgment intact - Constitutional Vitals: Temp Pulse Resp BP Pulse Ox 98.9 F 67 14 100/46 100 06/17/17 07:35 06/17/17 10:00 06/17/17 10:00 06/17/17 10:00 06/17/17 10:00 General appearance: Present: no acute distress, other (withdrawn, nonverbal) Results - Labs CBC & Chem 7: 06/16/17 08:45 06/17/17 04:00 Labs: Laboratory Last Values WBC 21.9 K/mm3 (4.5-11.0) H 06/16/17 08:45 RBC 3.77 M/mm3 (3.65-5.03) 06/16/17 08:45 Hgb 8.9 gm/dl (10.1-14.3) L 06/16/17 08:45 POC Hgb 14.3 (12-17) 06/04/17 16:22 Hct 29.0 % (30.3-42.9) L 06/16/17 08:45 POC Hct 42 (38-51) 06/04/17 16:22 MCV 77 fl (79-97) L 06/16/17 08:45 MCH 24 pg (28-32) L 06/16/17 08:45 MCHC 31 % (30-34) 06/16/17 08:45 RDW 18.1 % (13.2-15.2) H 06/16/17 08:45 Plt Count 204 K/mm3 (140-440) 06/16/17 08:45 [place] % (Auto) 11.2 % (0.0-7.3) H 06/16/17 08:45 Eos % (Auto) 1.4 % (0.0-4.3) 06/16/17 08:45 [place] # 1.6 K/mm3 (0.0-0.8) H 06/16/17 08:45 Eos # 0.2 K/mm3 (0.0-0.4) 06/16/17 08:45 Baso # 0.1 K/mm3 (0.0-0.1) 06/16/17 08:45 Add Manual Diff Complete 06/16/17 08:45 Total Counted 100 06/16/17 08:45 Seg Neutrophils % 82.8 % (40.0-70.0) H 06/16/17 08:45 Seg Neuts % (Manual) 78.0 % (40.0-70.0) H 06/16/17 08:45 Band Neutrophils % 1.0 % 06/16/17 08:45 Lymphocytes % (Manual) 3.0 % (13.4-35.0) L 06/16/17 08:45 Reactive Lymphs % (Man) 0 % 06/16/17 08:45 Monocytes % (Manual) 9.0 % (0.0-7.3) H 06/16/17 08:45 Eosinophils % (Manual) 2.0 % (0.0-4.3) 06/16/17 08:45 Basophils % (Manual) 1.0 % (0.0-1.8) 06/16/17 08:45 Metamyelocytes % 6.0 % 06/16/17 08:45 Myelocytes % 0 % 06/16/17 08:45 Promyelocytes % 0 % 06/16/17 08:45 Blast Cells % 0 % 06/16/17 08:45 Nucleated RBC % 1.0 % (0.0-0.9) H 06/16/17 08:45 Seg Neutrophils # 12.2 K/mm3 (1.8-7.7) H 06/16/17 08:45 Seg Neutrophils # Man 17.1 K/mm3 (1.8-7.7) H 06/16/17 08:45 Band Neutrophils # 0.2 K/mm3 06/16/17 08:45 Lymphocytes # (Manual) 0.7 K/mm3 (1.2-5.4) L 06/16/17 08:45 Abs React Lymphs (Man) 0.0 K/mm3 06/16/17 08:45 Monocytes # (Manual) 2.0 K/mm3 (0.0-0.8) H 06/16/17 08:45 Eosinophils # (Manual) 0.4 K/mm3 (0.0-0.4) 06/16/17 08:45 Basophils # (Manual) 0.2 K/mm3 (0.0-0.1) H 06/16/17 08:45 Metamyelocytes # 1.3 K/mm3 06/16/17 08:45 Myelocytes # 0.0 K/mm3 06/16/17 08:45 Promyelocytes # 0.0 K/mm3 06/16/17 08:45 Blast Cells # 0.0 K/mm3 06/16/17 08:45 WBC Morphology Not Reportable 06/16/17 08:45 Hypersegmented Neuts Not Reportable 06/16/17 08:45 Hyposegmented Neuts Not Reportable 06/16/17 08:45 Hypogranular Neuts Not Reportable 06/16/17 08:45 Smudge Cells Not Reportable 06/16/17 08:45 Toxic Granulation Not Reportable 06/16/17 08:45 Toxic Vacuolation Not Reportable 06/16/17 08:45 Dohle Bodies Not Reportable 06/16/17 08:45 Pelger-Huet Anomaly Not Reportable 06/16/17 08:45 [place]ita Rods Not Reportable 06/16/17 08:45 Platelet Estimate Cons 06/16/17 08:45 Clumped Platelets Not Reportable 06/16/17 08:45 Plt Clumps, EDTA Not Reportable 06/16/17 08:45 Large Platelets Not Reportable 06/16/17 08:45 Giant Platelets Not Reportable 06/16/17 08:45 Platelet Satelliting Not Reportable 06/16/17 08:45 Plt Morphology Comment Not Reportable 06/16/17 08:45 RBC Morphology Not Reportable 06/16/17 08:45 Dimorphic RBCs Not Reportable 06/16/17 08:45 Polychromasia Not Reportable 06/16/17 08:45 Hypochromasia 2+ 06/16/17 08:45 Poikilocytosis Not Reportable 06/16/17 08:45 Anisocytosis Not Reportable 06/16/17 08:45 Microcytosis 1+ 06/16/17 08:45 Macrocytosis Not Reportable 06/16/17 08:45 Spherocytes Not Reportable 06/16/17 08:45 Pappenheimer Bodies Not Reportable 06/16/17 08:45 Sickle Cells Not Reportable 06/16/17 08:45 Target Cells Not Reportable 06/16/17 08:45 Tear Drop Cells Few 06/16/17 08:45 Ovalocytes Not Reportable 06/16/17 08:45 Helmet Cells Not Reportable 06/16/17 08:45 [place] Bodies Not Reportable 06/16/17 08:45 [place] Rings Not Reportable 06/16/17 08:45 [place] Cells Not Reportable 06/16/17 08:45 Bite Cells Not Reportable 06/16/17 08:45 Crenated Cell Not Reportable 06/16/17 08:45 Elliptocytes Not Reportable 06/16/17 08:45 Acanthocytes (Spur) Not Reportable 06/16/17 08:45 Rouleaux Not Reportable 06/16/17 08:45 Hemoglobin C Crystals Not Reportable 06/16/17 08:45 Schistocytes Few 06/16/17 08:45 Malaria parasites Not Reportable 06/16/17 08:45 [place] Bodies Not Reportable 06/16/17 08:45 Hem Pathologist Commnt No 06/16/17 08:45 PT 13.5 Sec. (12.2-14.9) 06/09/17 16:55 INR 0.98 (0.87-1.13) 06/09/17 16:55 APTT 29.9 Sec. (24.2-36.6) 06/09/17 16:55 POC ABG pH 7.556 (7.35-7.45) H 06/11/17 06:51 ABG pH 7.357 pH Units (7.350-7.450) 06/16/17 09:25 POC ABG pCO2 34.8 (35-45) L 06/11/17 06:51 ABG pCO2 49.4 mm Hg 06/16/17 09:25 POC ABG pO2 125 (80-105) H 06/11/17 06:51 ABG pO2 102.0 mm Hg (80.0-90.0) H 06/16/17 09:25 POC ABG HCO3 30.9 06/11/17 06:51 ABG HCO3 27.1 mmol/L (20.0-26.0) H 06/16/17 09:25 POC ABG Total CO2 32 06/11/17 06:51 POC ABG O2 Sat 99 06/11/17 06:51 ABG O2 Saturation 97.5 % (95.0-99.0) 06/16/17 09:25 ABG O2 Content 12.3 (0.0-44) 06/16/17 09:25 POC ABG Base Excess 9 06/11/17 06:51 ABG Base Excess 1.2 mmol/L (-2.0-3.0) 06/16/17 09:25 ABG Hemoglobin 9.0 gm/dl (12.0-16.0) L 06/16/17 09:25 ABG Carboxyhemoglobin 1.7 % (0.0-5.0) 06/16/17 09:25 ABG Methemoglobin 0.4 % (0.0-1.5) 06/16/17 09:25 Oxyhemoglobin 95.4 % (95.0-99.0) 06/16/17 09:25 POC Sodium 137 mmol/L (138-146) L 06/04/17 16:22 POC Potassium 5.3 (3.5-4.9) H 06/04/17 16:22 POC Chloride 102 (98-109) 06/04/17 16:22 FiO2 35 % 06/16/17 09:25 Sodium 136 mmol/L (137-145) L 06/17/17 04:00 Potassium 4.1 mmol/L (3.6-5.0) 06/17/17 04:00 Chloride 94.5 mmol/L (98-107) L 06/17/17 04:00 Carbon Dioxide 27 mmol/L (22-30) 06/17/17 04:00 Anion Gap 19 mmol/L 06/17/17 04:00 POC BUN 45 mg/dl (8-26) H 06/04/17 16:22 BUN 44 mg/dL (7-17) H 06/17/17 04:00 Creatinine 5.3 mg/dL (0.7-1.2) H 06/17/17 04:00 Estimated GFR 10 ml/min 06/17/17 04:00 BUN/Creatinine Ratio 8 % 06/17/17 04:00 Glucose 107 mg/dL (65-100) H 06/17/17 04:00 POC Glucose 110 (70-105) H 06/17/17 05:42 Osmolality 312 Mosm/kg 06/14/17 09:25 Calcium 10.1 mg/dL (8.4-10.2) 06/17/17 04:00 Phosphorus 4.50 mg/dL (2.5-4.5) 06/06/17 07:13 Magnesium 1.90 mg/dL (1.7-2.3) 06/16/17 11:00 Total Bilirubin 0.20 mg/dL (0.1-1.2) 06/06/17 07:13 AST 14 units/L (5-40) 06/06/17 07:13 ALT 15 units/L (7-56) 06/06/17 07:13 Alkaline Phosphatase 79 units/L (35-129) 06/06/17 07:13 Total Protein 5.7 g/dL (6.3-8.2) L 06/06/17 07:13 Albumin 3.3 g/dL (3.9-5) L 06/06/17 07:13 Albumin/Globulin Ratio 1.4 % 06/06/17 07:13 Triglycerides 132 mg/dL (2-149) 06/09/17 11:49 Cholesterol 171 mg/dL (50-199) 06/09/17 11:49 LDL Cholesterol Direct 95 mg/dL (50-130) 06/09/17 11:49 HDL Cholesterol 50 mg/dL (40-59) 06/09/17 11:49 Cholesterol/HDL Ratio 3.42 % 06/09/17 11:49 PTH Pre-Incision 641.9 (11.1-79.5) H 06/04/17 13:55 PTH Post-Excision 154.7 (11.1-79.5) H 06/04/17 13:55 PTH Intact Intraop 5 m Not Reportable 06/04/17 13:55
[2017-06-17] MEDS ORDERED: NACL 0.9% 500 ML 500 ML IV ONE (13:30)
--- NOTE | 2017-06-17 14:22 | Progress Note ---
Assessment and Plan Assessment: Acute CVA / AMS - head CT showed acute stroke in MCA, no hemorrhage Thrombus in distal L ICA and MCA - per chart, neuro currently recommends against heparin gtt in setting of acute CVA and risk of conversion to hemorrhagic CVA. Hyperparathyroidism, s/p subtotal parathyroidectomy on 06/04/2017 CMP - EF 40-45%; no current clinical evidence of acute heart failure Acute respiratory failure / Laryngeal edema/stridor - for possible trach per pulmonary HTN ESRD on HD Hypokalemia Hypocalcemia Leukocytosis - pt with intermittent low grade fever; CXR with NAF Morbid obesity History of breast cancer status post mastectomy Plan: Cont present cardiac regimen. BB and ACEI/ARB held in setting of hypotension. Consider cautious introduction if BPs remain WNL. Cont ASA and statin. For possible trach per pulmonary. Currently stable cardiac status. The patient has been seen in conjunction with Dr. Bradley who agrees with the assessment and plan of care. Subjective Date of service: 06/17/17 Principal diagnosis: ARM/MV/Post hyperparathy./ESRD Interval history: Pt remains intubated and unresponsive. No acute events. VSS. Son at bedside. Objective Last Vital Signs Temp 98.5 F 06/17/17 12:00 Pulse 60 06/17/17 13:30 Resp 13 06/17/17 13:30 BP 83/43 06/17/17 13:30 Pulse Ox 100 06/17/17 13:00 - Physical Examination General: Other (intubated, unresponsive) HEENT: Positive: PERRL, Mucus Membranes Moist Neck: Positive: neck supple, trachea midline Cardiac: Positive: Reg Rate and Rhythm, S1/S2 Lungs: Positive: clear to auscultation, Ventilated Respirations Neuro: Positive: Weakness (right-sided), Other (intubated, unresponsive) Abdomen: Positive: Unremarkable. Negative: Tender Skin: Positive: Clear. Negative: Rash, Wound Musculoskeletal: No Fluid Collection, No Pain, Normal Range of Motion Extremities: Absent: edema - Labs and Meds Comprehensive Metabolic Panel 06/16/17 06/17/17 Range/Units 17:51 04:00 Sodium 139 136 L (137-145) mmol/L Potassium 4.1 4.1 (3.6-5.0) mmol/L Chloride 97.4 L 94.5 L (98-107) mmol/L Carbon Dioxide 29 27 (22-30) mmol/L BUN 35 H 44 H (7-17) mg/dL Creatinine 4.4 H 5.3 H (0.7-1.2) mg/dL Glucose 116 H 107 H (65-100) mg/dL Calcium 10.0 10.1 (8.4-10.2) mg/dL - Imaging and Cardiology EKG: image reviewed Echo: report reviewed (LV mildly dilated, mild to moderate LVH, EF 40-45%, LA moderate to severely dilated, mild MR, mild AR, mild TR. ) - EKG Sinus rhythms and dysrhythmias: sinus rhythm
--- NOTE | 2017-06-17 16:36 | Progress Note ---
Assessment and Plan D/w Dr. Crump. Will plan on Trach possible PEG in OR on Wednesday. Concerned about abdominal soft tissue and PEG. D/w son and he has agreed to proceed. Scheduled for 1pm Wednesday. Subjective Date of service: 06/17/17 Patient Reports: Positive: no new complaints Objective Vital Signs - 12hr 06/17/17 06/17/17 06/17/17 05:00 05:30 06:00 Temperature Pulse Rate 68 63 62 Respiratory 21 14 15 Rate Blood Pressure 124/69 99/53 95/52 O2 Sat by Pulse 100 98 98 Oximetry 06/17/17 06/17/17 06/17/17 06:05 06:30 07:00 Temperature Pulse Rate 68 65 64 Respiratory 20 24 21 Rate Blood Pressure 99/53 111/62 113/56 O2 Sat by Pulse 100 99 100 Oximetry 06/17/17 06/17/17 06/17/17 07:30 07:35 07:49 Temperature 98.9 F Pulse Rate 65 Respiratory 22 22 Rate Blood Pressure 105/59 O2 Sat by Pulse 100 Oximetry 06/17/17 06/17/17 06/17/17 08:00 08:30 09:00 Temperature Pulse Rate 70 69 70 Respiratory 25 H 23 23 Rate Blood Pressure 104/58 90/45 94/47 O2 Sat by Pulse 99 98 Oximetry 06/17/17 06/17/17 06/17/17 09:30 10:00 10:30 Temperature Pulse Rate 69 67 65 Respiratory 23 23 22 Rate Blood Pressure 94/48 100/46 97/48 O2 Sat by Pulse 99 98 98 Oximetry 06/17/17 06/17/17 06/17/17 10:55 11:00 11:30 Temperature Pulse Rate 75 66 63 Respiratory 20 23 21 Rate Blood Pressure 102/50 88/42 O2 Sat by Pulse 96 97 Oximetry 06/17/17 06/17/17 06/17/17 12:00 12:30 13:00 Temperature 98.5 F Pulse Rate 66 66 63 Respiratory 22 21 21 Rate Blood Pressure 89/46 85/42 81/42 O2 Sat by Pulse 99 100 100 Oximetry 06/17/17 06/17/17 06/17/17 13:30 14:00 14:30 Temperature Pulse Rate 60 62 60 Respiratory 13 16 12 Rate Blood Pressure 83/43 97/50 93/51 O2 Sat by Pulse 100 Oximetry 06/17/17 06/17/17 06/17/17 15:00 15:30 15:36 Temperature 98.8 F Pulse Rate 63 59 L Respiratory 24 15 Rate Blood Pressure 110/58 86/42 O2 Sat by Pulse 100 99 Oximetry 06/17/17 06/17/17 16:00 16:05 Temperature Pulse Rate 64 61 Respiratory 14 Rate Blood Pressure 101/57 101/57 O2 Sat by Pulse 100 100 Oximetry - General physical appearance well developed, well nourished - Neck no masses, no bruits - Respiratory normal expansion - Abdomen soft, bowel sounds normal - Labs 06/16/17 08:45 06/17/17 04:00 Diabetes panel 06/16/17 06/17/17 Range/Units 17:51 04:00 Sodium 139 136 L (137-145) mmol/L Potassium 4.1 4.1 (3.6-5.0) mmol/L Chloride 97.4 L 94.5 L (98-107) mmol/L Carbon Dioxide 29 27 (22-30) mmol/L BUN 35 H 44 H (7-17) mg/dL Creatinine 4.4 H 5.3 H (0.7-1.2) mg/dL Glucose 116 H 107 H (65-100) mg/dL Calcium 10.0 10.1 (8.4-10.2) mg/dL Calcium panel 06/16/17 06/17/17 Range/Units 17:51 04:00 Calcium 10.0 10.1 (8.4-10.2) mg/dL Pituitary panel 06/16/17 06/17/17 Range/Units 17:51 04:00 Sodium 139 136 L (137-145) mmol/L Potassium 4.1 4.1 (3.6-5.0) mmol/L Chloride 97.4 L 94.5 L (98-107) mmol/L Carbon Dioxide 29 27 (22-30) mmol/L BUN 35 H 44 H (7-17) mg/dL Creatinine 4.4 H 5.3 H (0.7-1.2) mg/dL Glucose 116 H 107 H (65-100) mg/dL Calcium 10.0 10.1 (8.4-10.2) mg/dL Adrenal panel 06/16/17 06/17/17 Range/Units 17:51 04:00 Sodium 139 136 L (137-145) mmol/L Potassium 4.1 4.1 (3.6-5.0) mmol/L Chloride 97.4 L 94.5 L (98-107) mmol/L Carbon Dioxide 29 27 (22-30) mmol/L BUN 35 H 44 H (7-17) mg/dL Creatinine 4.4 H 5.3 H (0.7-1.2) mg/dL Glucose 116 H 107 H (65-100) mg/dL Calcium 10.0 10.1 (8.4-10.2) mg/dL
[2017-06-18] MEDS: PROAMATINE PO SCH ×3 (05:20→21:38)
--- NOTE | 2017-06-18 08:03 | XRay Report ---
Portable chest: Respiratory failure. Comparison made to prior study of June 17. Endotracheal and nasogastric tubes remain in good positions. Decreased inspiratory effort with possible mild cardiac enlargement. Mild vascular congestion similar to exam on June 16. No focal infiltrate. Compared to prior study vascular structures appear somewhat more prominent. Impression: Worsening vascular congestion.
--- NOTE | 2017-06-18 08:19 | Progress Note ---
Assessment and Plan 66 y/o female with post-op respiratory failure, likely from pulmonary edema and possible airway edema with end stage renal disease. 1. Trach scheduled for Wednesday, possible peg 2. HD per renal, most likely today. 3. No sedation, continue to leave off 4. Follow up Neurology recs, none since 06/12 5. Overall prognosis is guarded to poor 6. Continue PSV trials as tolerated. 7. Will need ltach once trached and pegged CCT 31 minutes. Subjective Date of service: 06/18/17 Principal diagnosis: ARM/MV/Post hyperparathy./ESRD Interval history: No acute events overnight. Surgeon came by and spoke with son. Trach scheduled for Wednesday. Objective Vital Signs - 12hr 06/17/17 06/17/17 06/17/17 20:30 21:00 21:17 Temperature Pulse Rate 58 L 57 L 59 L Pulse Rate [ From Monitor] Respiratory 12 13 20 Rate Blood Pressure 95/55 95/58 95/58 O2 Sat by Pulse 98 98 100 Oximetry 06/17/17 06/17/17 06/17/17 21:30 22:00 22:30 Temperature Pulse Rate 57 L 59 L 52 L Pulse Rate [ From Monitor] Respiratory 13 14 12 Rate Blood Pressure 99/60 115/72 96/58 O2 Sat by Pulse 98 98 98 Oximetry 06/17/17 06/17/17 06/18/17 23:00 23:30 00:00 Temperature 98.8 F Pulse Rate 53 L 54 L 55 L Pulse Rate [ 58 L From Monitor] Respiratory 12 13 12 Rate Blood Pressure 97/59 101/59 94/56 O2 Sat by Pulse 98 100 98 Oximetry 06/18/17 06/18/17 06/18/17 00:30 01:00 01:30 Temperature Pulse Rate 53 L 51 L 56 L Pulse Rate [ From Monitor] Respiratory 12 12 15 Rate Blood Pressure 91/55 89/54 92/62 O2 Sat by Pulse 98 98 Oximetry 06/18/17 06/18/17 06/18/17 02:00 02:30 03:00 Temperature Pulse Rate 54 L 59 L 60 Pulse Rate [ From Monitor] Respiratory 12 14 13 Rate Blood Pressure 89/56 110/64 112/64 O2 Sat by Pulse 98 98 99 Oximetry 06/18/17 06/18/17 06/18/17 03:30 04:00 04:30 Temperature 98.9 F Pulse Rate 59 L 57 L 56 L Pulse Rate [ 64 From Monitor] Respiratory 12 13 14 Rate Blood Pressure 114/61 108/59 97/58 O2 Sat by Pulse 99 99 97 Oximetry 06/18/17 06/18/17 06/18/17 05:00 05:30 06:00 Temperature Pulse Rate 55 L 59 L 53 L Pulse Rate [ From Monitor] Respiratory 13 13 13 Rate Blood Pressure 95/56 115/64 102/56 O2 Sat by Pulse 99 98 99 Oximetry 06/18/17 06/18/17 07:15 07:49 Temperature 98.2 F Pulse Rate 60 Pulse Rate [ From Monitor] Respiratory 14 Rate Blood Pressure 110/55 O2 Sat by Pulse 98 Oximetry Constitutional: no acute distress, other (intubated, some response to tactile stimulation otherwise nonresponsive) Eyes: non-icteric ENT: other (orally intubated) Neck: supple, no JVD, other (no stridor) Effort: normal Ascultation: Bilateral: clear, diminished breath sounds, rales Percussion: Bilateral: not dull Cardiovascular: regular rate and rhythm Gastrointestinal: normoactive bowel sounds, soft, non-tender, non-distended, other (obese) Integumentary: normal Extremities: no cyanosis, no edema, pink and warm, edema Neurologic: other (altered mentation, R-hemiparesis,GCS 3-4) Psychiatric: mood appropriate, affect normal CBC and BMP: 06/16/17 08:45 06/17/17 04:00 ABG, PT/INR, D-dimer: ABG POC ABG pH 7.556 (7.35-7.45) H 06/11/17 06:51 ABG pH 7.357 pH Units (7.350-7.450) 06/16/17 09:25 POC ABG pCO2 34.8 (35-45) L 06/11/17 06:51 ABG pCO2 49.4 mm Hg 06/16/17 09:25 POC ABG pO2 125 (80-105) H 06/11/17 06:51 ABG pO2 102.0 mm Hg (80.0-90.0) H 06/16/17 09:25 POC ABG HCO3 30.9 06/11/17 06:51 POC ABG Total CO2 32 06/11/17 06:51 POC ABG O2 Sat 99 06/11/17 06:51 ABG O2 Saturation 97.5 % (95.0-99.0) 06/16/17 09:25 PT/INR, D-dimer PT 13.5 Sec. (12.2-14.9) 06/09/17 16:55 INR 0.98 (0.87-1.13) 06/09/17 16:55 Abnormal lab findings: Abnormal Labs 06/04/17 06/04/17 06/04/17 00:01 12:50 13:55 WBC 11.4 H Hgb Hct POC Hct MCV 76 L MCH 23 L RDW 18.5 H [place] % (Auto) [place] # Seg Neutrophils % Seg Neuts % (Manual) 89.0 H Lymphocytes % (Manual) 6.0 L Monocytes % (Manual) Nucleated RBC % Seg Neutrophils # Seg Neutrophils # Man 10.1 H Lymphocytes # (Manual) 0.7 L Monocytes # (Manual) Eosinophils # (Manual) Basophils # (Manual) POC ABG pH ABG pH POC ABG pCO2 POC ABG pO2 ABG pO2 ABG HCO3 ABG O2 Saturation ABG Hemoglobin POC Sodium POC Potassium Sodium Potassium 5.1 H 5.2 H Chloride Carbon Dioxide POC BUN BUN 48 H Creatinine 6.2 H Glucose POC Glucose Calcium Total Protein Albumin PTH Pre-Incision PTH Post-Excision 06/04/17 06/04/17 06/04/17 13:55 16:10 16:16 WBC Hgb Hct POC Hct 37 L MCV MCH RDW [place] % (Auto) [place] # Seg Neutrophils % Seg Neuts % (Manual) Lymphocytes % (Manual) Monocytes % (Manual) Nucleated RBC % Seg Neutrophils # Seg Neutrophils # Man Lymphocytes # (Manual) Monocytes # (Manual) Eosinophils # (Manual) Basophils # (Manual) POC ABG pH 7.306 L ABG pH POC ABG pCO2 58.7 H POC ABG pO2 338 H ABG pO2 ABG HCO3 ABG O2 Saturation ABG Hemoglobin POC Sodium 135 L POC Potassium 5.2 H Sodium Potassium Chloride Carbon Dioxide POC BUN 44 H BUN Creatinine Glucose POC Glucose 183 H Calcium Total Protein Albumin PTH Pre-Incision 641.9 H PTH Post-Excision 154.7 H 06/04/17 06/04/17 06/04/17 16:22 20:44 21:29 WBC Hgb Hct POC Hct MCV MCH RDW [place] % (Auto) [place] # Seg Neutrophils % Seg Neuts % (Manual) Lymphocytes % (Manual) Monocytes % (Manual) Nucleated RBC % Seg Neutrophils # Seg Neutrophils # Man Lymphocytes # (Manual) Monocytes # (Manual) Eosinophils # (Manual) Basophils # (Manual) POC ABG pH 7.484 H ABG pH POC ABG pCO2 POC ABG pO2 ABG pO2 ABG HCO3 ABG O2 Saturation ABG Hemoglobin POC Sodium 137 L POC Potassium 5.3 H Sodium Potassium 5.2 H Chloride Carbon Dioxide POC BUN 45 H BUN 51 H Creatinine 6.5 H Glucose 119 H POC Glucose 176 H Calcium Total Protein Albumin PTH Pre-Incision PTH Post-Excision 06/05/17 06/05/17 06/05/17 03:31 11:44 11:44 WBC 13.4 H Hgb Hct POC Hct MCV 75 L MCH 23 L RDW 18.2 H [place] % (Auto) [place] # Seg Neutrophils % Seg Neuts % (Manual) Lymphocytes % (Manual) Monocytes % (Manual) Nucleated RBC % Seg Neutrophils # Seg Neutrophils # Man Lymphocytes # (Manual) Monocytes # (Manual) Eosinophils # (Manual) Basophils # (Manual) POC ABG pH ABG pH POC ABG pCO2 POC ABG pO2 75 L ABG pO2 ABG HCO3 ABG O2 Saturation ABG Hemoglobin POC Sodium POC Potassium Sodium Potassium 5.8 H Chloride Carbon Dioxide POC BUN BUN 56 H Creatinine 7.0 H Glucose 111 H POC Glucose Calcium 8.2 L Total Protein 6.2 L Albumin 3.1 L PTH Pre-Incision PTH Post-Excision 06/06/17 06/06/17 06/07/17 05:07 07:13 03:53 WBC Hgb Hct POC Hct MCV MCH RDW [place] % (Auto) [place] # Seg Neutrophils % Seg Neuts % (Manual) Lymphocytes % (Manual) Monocytes % (Manual) Nucleated RBC % Seg Neutrophils # Seg Neutrophils # Man Lymphocytes # (Manual) Monocytes # (Manual) Eosinophils # (Manual) Basophils # (Manual) POC ABG pH ABG pH POC ABG pCO2 POC ABG pO2 116 H 137 H ABG pO2 ABG HCO3 ABG O2 Saturation ABG Hemoglobin POC Sodium POC Potassium Sodium Potassium Chloride Carbon Dioxide POC BUN BUN 32 H Creatinine 4.9 H Glucose 115 H POC Glucose Calcium 7.9 L Total Protein 5.7 L Albumin 3.3 L PTH Pre-Incision PTH Post-Excision 06/07/17 06/07/17 06/07/17 05:21 05:21 16:54 WBC Hgb Hct POC Hct MCV 75 L MCH 24 L RDW 18.7 H [place] % (Auto) [place] # Seg Neutrophils % Seg Neuts % (Manual) Lymphocytes % (Manual) Monocytes % (Manual) Nucleated RBC % Seg Neutrophils # Seg Neutrophils # Man Lymphocytes # (Manual) Monocytes # (Manual) Eosinophils # (Manual) Basophils # (Manual) POC ABG pH ABG pH POC ABG pCO2 POC ABG pO2 ABG pO2 ABG HCO3 ABG O2 Saturation ABG Hemoglobin POC Sodium POC Potassium Sodium Potassium 5.4 H Chloride Carbon Dioxide POC BUN BUN 52 H Creatinine 6.2 H Glucose 107 H POC Glucose 110 H Calcium 8.0 L Total Protein Albumin PTH Pre-Incision PTH Post-Excision 06/07/17 06/07/17 06/08/17 17:38 23:32 04:00 WBC Hgb Hct POC Hct MCV 77 L MCH 23 L RDW 18.3 H [place] % (Auto) [place] # Seg Neutrophils % Seg Neuts % (Manual) 78.0 H Lymphocytes % (Manual) Monocytes % (Manual) Nucleated RBC % 3.0 H Seg Neutrophils # Seg Neutrophils # Man 7.8 H Lymphocytes # (Manual) Monocytes # (Manual) Eosinophils # (Manual) Basophils # (Manual) POC ABG pH 7.310 L ABG pH POC ABG pCO2 51.9 H POC ABG pO2 ABG pO2 ABG HCO3 ABG O2 Saturation ABG Hemoglobin POC Sodium POC Potassium Sodium Potassium Chloride Carbon Dioxide POC BUN BUN Creatinine Glucose POC Glucose 63 L Calcium Total Protein Albumin PTH Pre-Incision PTH Post-Excision 06/08/17 06/08/17 06/08/17 04:00 10:51 11:25 WBC Hgb Hct POC Hct MCV MCH RDW [place] % (Auto) [place] # Seg Neutrophils % Seg Neuts % (Manual) Lymphocytes % (Manual) Monocytes % (Manual) Nucleated RBC % Seg Neutrophils # Seg Neutrophils # Man Lymphocytes # (Manual) Monocytes # (Manual) Eosinophils # (Manual) Basophils # (Manual) POC ABG pH 7.336 L ABG pH POC ABG pCO2 55.1 H POC ABG pO2 ABG pO2 ABG HCO3 ABG O2 Saturation ABG Hemoglobin POC Sodium POC Potassium Sodium Potassium Chloride 96.9 L Carbon Dioxide POC BUN BUN 29 H Creatinine 4.6 H Glucose POC Glucose 108 H Calcium 8.3 L Total Protein Albumin PTH Pre-Incision PTH Post-Excision 06/08/17 06/09/17 06/09/17 14:22 11:42 11:42 WBC Hgb Hct POC Hct MCV 76 L MCH 24 L RDW 18.3 H [place] % (Auto) [place] # Seg Neutrophils % Seg Neuts % (Manual) 80.0 H Lymphocytes % (Manual) 10.0 L Monocytes % (Manual) Nucleated RBC % 2.0 H Seg Neutrophils # Seg Neutrophils # Man Lymphocytes # (Manual) 1.0 L Monocytes # (Manual) Eosinophils # (Manual) Basophils # (Manual) POC ABG pH ABG pH POC ABG pCO2 52.8 H POC ABG pO2 77 L ABG pO2 ABG HCO3 ABG O2 Saturation ABG Hemoglobin POC Sodium POC Potassium Sodium Potassium 5.4 H D Chloride 97.1 L Carbon Dioxide POC BUN BUN 58 H Creatinine 6.6 H Glucose POC Glucose Calcium 7.2 L Total Protein Albumin PTH Pre-Incision PTH Post-Excision 06/09/17 06/10/17 06/10/17 12:04 03:29 03:29 WBC 13.7 H Hgb Hct POC Hct MCV 77 L MCH 24 L RDW 17.9 H [place] % (Auto) [place] # Seg Neutrophils % Seg Neuts % (Manual) 82.0 H Lymphocytes % (Manual) 7.0 L Monocytes % (Manual) Nucleated RBC % 6.0 H Seg Neutrophils # Seg Neutrophils # Man 11.2 H Lymphocytes # (Manual) 1.0 L Monocytes # (Manual) Eosinophils # (Manual) Basophils # (Manual) POC ABG pH ABG pH POC ABG pCO2 POC ABG pO2 ABG pO2 ABG HCO3 ABG O2 Saturation ABG Hemoglobin POC Sodium POC Potassium Sodium Potassium Chloride 94.2 L Carbon Dioxide POC BUN BUN 32 H Creatinine 4.6 H Glucose 106 H POC Glucose 106 H Calcium 8.0 L Total Protein Albumin PTH Pre-Incision PTH Post-Excision 06/10/17 06/11/17 06/11/17 05:27 06:00 06:00 WBC 11.8 H Hgb Hct POC Hct MCV 77 L MCH 24 L RDW 18.3 H [place] % (Auto) [place] # Seg Neutrophils % Seg Neuts % (Manual) 88.0 H Lymphocytes % (Manual) 7.0 L Monocytes % (Manual) Nucleated RBC % 1.0 H Seg Neutrophils # Seg Neutrophils # Man 10.4 H Lymphocytes # (Manual) 0.8 L Monocytes # (Manual) Eosinophils # (Manual) Basophils # (Manual) POC ABG pH ABG pH POC ABG pCO2 POC ABG pO2 ABG pO2 ABG HCO3 ABG O2 Saturation ABG Hemoglobin POC Sodium POC Potassium Sodium Potassium Chloride Carbon Dioxide POC BUN BUN 53 H Creatinine 6.0 H Glucose POC Glucose 106 H Calcium 6.3 L D Total Protein Albumin PTH Pre-Incision PTH Post-Excision 06/11/17 06/11/17 06/11/17 06:51 12:10 16:54 WBC Hgb Hct POC Hct MCV MCH RDW [place] % (Auto) [place] # Seg Neutrophils % Seg Neuts % (Manual) Lymphocytes % (Manual) Monocytes % (Manual) Nucleated RBC % Seg Neutrophils # Seg Neutrophils # Man Lymphocytes # (Manual) Monocytes # (Manual) Eosinophils # (Manual) Basophils # (Manual) POC ABG pH 7.556 H ABG pH POC ABG pCO2 34.8 L POC ABG pO2 125 H ABG pO2 ABG HCO3 ABG O2 Saturation ABG Hemoglobin POC Sodium POC Potassium Sodium Potassium Chloride Carbon Dioxide POC BUN BUN Creatinine Glucose POC Glucose 115 H 106 H Calcium Total Protein Albumin PTH Pre-Incision PTH Post-Excision 06/11/17 06/12/17 06/12/17 20:20 00:06 04:20 WBC Hgb Hct POC Hct MCV MCH RDW [place] % (Auto) [place] # Seg Neutrophils % Seg Neuts % (Manual) Lymphocytes % (Manual) Monocytes % (Manual) Nucleated RBC % Seg Neutrophils # Seg Neutrophils # Man Lymphocytes # (Manual) Monocytes # (Manual) Eosinophils # (Manual) Basophils # (Manual) POC ABG pH ABG pH 7.512 H 7.514 H POC ABG pCO2 POC ABG pO2 ABG pO2 148.5 H 209.1 H ABG HCO3 ABG O2 Saturation 99.3 H ABG Hemoglobin POC Sodium POC Potassium Sodium Potassium Chloride Carbon Dioxide POC BUN BUN Creatinine Glucose POC Glucose 108 H Calcium Total Protein Albumin PTH Pre-Incision PTH Post-Excision 06/12/17 06/12/17 06/12/17 05:24 05:30 05:30 WBC 14.3 H Hgb Hct POC Hct MCV 75 L MCH 24 L RDW 18.5 H [place] % (Auto) [place] # Seg Neutrophils % Seg Neuts % (Manual) 73.0 H Lymphocytes % (Manual) 6.0 L Monocytes % (Manual) 9.0 H Nucleated RBC % 1.0 H Seg Neutrophils # Seg Neutrophils # Man 10.4 H Lymphocytes # (Manual) 0.9 L Monocytes # (Manual) 1.3 H Eosinophils # (Manual) Basophils # (Manual) POC ABG pH ABG pH POC ABG pCO2 POC ABG pO2 ABG pO2 ABG HCO3 ABG O2 Saturation ABG Hemoglobin POC Sodium POC Potassium Sodium 131 L D Potassium Chloride 90.6 L Carbon Dioxide POC BUN BUN 51 H Creatinine 6.5 H Glucose POC Glucose 109 H Calcium Total Protein Albumin PTH Pre-Incision PTH Post-Excision 06/12/17 06/13/17 06/13/17 11:46 04:15 04:55 WBC 17.9 H Hgb Hct POC Hct MCV 75 L MCH 24 L RDW 18.5 H [place] % (Auto) [place] # Seg Neutrophils % Seg Neuts % (Manual) 75.0 H Lymphocytes % (Manual) 6.0 L Monocytes % (Manual) 9.0 H Nucleated RBC % Seg Neutrophils # Seg Neutrophils # Man 13.4 H Lymphocytes # (Manual) 1.1 L Monocytes # (Manual) 1.6 H Eosinophils # (Manual) 0.5 H Basophils # (Manual) 0.2 H POC ABG pH ABG pH POC ABG pCO2 POC ABG pO2 ABG pO2 131.0 H ABG HCO3 ABG O2 Saturation ABG Hemoglobin 10.5 L POC Sodium POC Potassium Sodium Potassium Chloride Carbon Dioxide POC BUN BUN Creatinine Glucose POC Glucose 116 H Calcium Total Protein Albumin PTH Pre-Incision PTH Post-Excision 06/13/17 06/13/17 06/14/17 04:55 17:23 04:30 WBC 17.8 H Hgb 9.7 L Hct POC Hct MCV 76 L MCH 24 L RDW 18.3 H [place] % (Auto) [place] # Seg Neutrophils % Seg Neuts % (Manual) 74.0 H Lymphocytes % (Manual) 6.0 L Monocytes % (Manual) 9.0 H Nucleated RBC % Seg Neutrophils # Seg Neutrophils # Man 13.2 H Lymphocytes # (Manual) 1.1 L Monocytes # (Manual) 1.6 H Eosinophils # (Manual) Basophils # (Manual) POC ABG pH ABG pH POC ABG pCO2 POC ABG pO2 ABG pO2 ABG HCO3 ABG O2 Saturation ABG Hemoglobin POC Sodium POC Potassium Sodium 128 L Potassium Chloride 88.9 L Carbon Dioxide POC BUN BUN 73 H Creatinine 7.6 H Glucose 115 H POC Glucose 113 H Calcium 8.1 L Total Protein Albumin PTH Pre-Incision PTH Post-Excision 06/14/17 06/14/17 06/14/17 04:30 05:30 05:49 WBC Hgb Hct POC Hct MCV MCH RDW [place] % (Auto) [place] # Seg Neutrophils % Seg Neuts % (Manual) Lymphocytes % (Manual) Monocytes % (Manual) Nucleated RBC % Seg Neutrophils # Seg Neutrophils # Man Lymphocytes # (Manual) Monocytes # (Manual) Eosinophils # (Manual) Basophils # (Manual) POC ABG pH ABG pH POC ABG pCO2 POC ABG pO2 ABG pO2 109.3 H ABG HCO3 ABG O2 Saturation ABG Hemoglobin 10.7 L POC Sodium POC Potassium Sodium 124 L Potassium Chloride 84.3 L Carbon Dioxide POC BUN BUN 86 H Creatinine 9.0 H Glucose 106 H POC Glucose 111 H Calcium 8.1 L Total Protein Albumin PTH Pre-Incision PTH Post-Excision 06/14/17 06/14/17 06/14/17 12:27 16:05 23:35 WBC Hgb Hct POC Hct MCV MCH RDW [place] % (Auto) [place] # Seg Neutrophils % Seg Neuts % (Manual) Lymphocytes % (Manual) Monocytes % (Manual) Nucleated RBC % Seg Neutrophils # Seg Neutrophils # Man Lymphocytes # (Manual) Monocytes # (Manual) Eosinophils # (Manual) Basophils # (Manual) POC ABG pH ABG pH POC ABG pCO2 POC ABG pO2 ABG pO2 ABG HCO3 ABG O2 Saturation ABG Hemoglobin POC Sodium POC Potassium Sodium Potassium Chloride Carbon Dioxide POC BUN BUN Creatinine Glucose POC Glucose 139 H 133 H 147 H Calcium Total Protein Albumin PTH Pre-Incision PTH Post-Excision 06/15/17 06/15/17 06/15/17 05:05 06:00 06:00 WBC 21.4 H Hgb 9.2 L Hct POC Hct MCV 77 L MCH 23 L RDW 18.8 H [place] % (Auto) [place] # Seg Neutrophils % Seg Neuts % (Manual) 86.0 H Lymphocytes % (Manual) 2.0 L Monocytes % (Manual) Nucleated RBC % 1.0 H Seg Neutrophils # Seg Neutrophils # Man 18.4 H Lymphocytes # (Manual) 0.4 L Monocytes # (Manual) 1.5 H Eosinophils # (Manual) Basophils # (Manual) POC ABG pH ABG pH POC ABG pCO2 POC ABG pO2 ABG pO2 ABG HCO3 ABG O2 Saturation ABG Hemoglobin POC Sodium POC Potassium Sodium 132 L D Potassium Chloride 91.5 L Carbon Dioxide POC BUN BUN 59 H Creatinine 6.6 H Glucose 116 H POC Glucose 145 H Calcium Total Protein Albumin PTH Pre-Incision PTH Post-Excision 06/15/17 06/15/17 06/15/17 12:04 17:55 23:40 WBC Hgb Hct POC Hct MCV MCH RDW [place] % (Auto) [place] # Seg Neutrophils % Seg Neuts % (Manual) Lymphocytes % (Manual) Monocytes % (Manual) Nucleated RBC % Seg Neutrophils # Seg Neutrophils # Man Lymphocytes # (Manual) Monocytes # (Manual) Eosinophils # (Manual) Basophils # (Manual) POC ABG pH ABG pH POC ABG pCO2 POC ABG pO2 ABG pO2 ABG HCO3 ABG O2 Saturation ABG Hemoglobin POC Sodium POC Potassium Sodium Potassium Chloride Carbon Dioxide POC BUN BUN Creatinine Glucose POC Glucose 109 H 119 H 123 H Calcium Total Protein Albumin PTH Pre-Incision PTH Post-Excision 06/15/17 06/16/17 06/16/17 Unknown 06:00 08:45 WBC 21.9 H Hgb 8.9 L Hct 29.0 L POC Hct MCV 77 L MCH 24 L RDW 18.1 H [place] % (Auto) 11.2 H [place] # 1.6 H Seg Neutrophils % 82.8 H Seg Neuts % (Manual) 78.0 H Lymphocytes % (Manual) 3.0 L Monocytes % (Manual) 9.0 H Nucleated RBC % 1.0 H Seg Neutrophils # 12.2 H Seg Neutrophils # Man 17.1 H Lymphocytes # (Manual) 0.7 L Monocytes # (Manual) 2.0 H Eosinophils # (Manual) Basophils # (Manual) 0.2 H POC ABG pH ABG pH POC ABG pCO2 POC ABG pO2 ABG pO2 115.7 H ABG HCO3 27.6 H ABG O2 Saturation ABG Hemoglobin 9.2 L POC Sodium POC Potassium Sodium Potassium 2.7 L* D Chloride 111.6 H Carbon Dioxide 17 L D POC BUN BUN 52 H Creatinine 5.0 H Glucose POC Glucose Calcium 5.3 L* D Total Protein Albumin PTH Pre-Incision PTH Post-Excision 06/16/17 06/16/17 06/16/17 09:25 11:00 12:07 WBC Hgb Hct POC Hct MCV MCH RDW [place] % (Auto) [place] # Seg Neutrophils % Seg Neuts % (Manual) Lymphocytes % (Manual) Monocytes % (Manual) Nucleated RBC % Seg Neutrophils # Seg Neutrophils # Man Lymphocytes # (Manual) Monocytes # (Manual) Eosinophils # (Manual) Basophils # (Manual) POC ABG pH ABG pH POC ABG pCO2 POC ABG pO2 ABG pO2 102.0 H ABG HCO3 27.1 H ABG O2 Saturation ABG Hemoglobin 9.0 L POC Sodium POC Potassium Sodium Potassium Chloride 95.2 L Carbon Dioxide POC BUN BUN 60 H Creatinine 6.3 H Glucose 114 H POC Glucose 111 H Calcium 10.6 H D Total Protein Albumin PTH Pre-Incision PTH Post-Excision 06/16/17 06/16/17 06/17/17 17:20 17:51 00:10 WBC Hgb Hct POC Hct MCV MCH RDW [place] % (Auto) [place] # Seg Neutrophils % Seg Neuts % (Manual) Lymphocytes % (Manual) Monocytes % (Manual) Nucleated RBC % Seg Neutrophils # Seg Neutrophils # Man Lymphocytes # (Manual) Monocytes # (Manual) Eosinophils # (Manual) Basophils # (Manual) POC ABG pH ABG pH POC ABG pCO2 POC ABG pO2 ABG pO2 ABG HCO3 ABG O2 Saturation ABG Hemoglobin POC Sodium POC Potassium Sodium Potassium Chloride 97.4 L Carbon Dioxide POC BUN BUN 35 H Creatinine 4.4 H Glucose 116 H POC Glucose 128 H 114 H Calcium Total Protein Albumin PTH Pre-Incision PTH Post-Excision 06/17/17 06/17/17 04:00 05:42 WBC Hgb Hct POC Hct MCV MCH RDW [place] % (Auto) [place] # Seg Neutrophils % Seg Neuts % (Manual) Lymphocytes % (Manual) Monocytes % (Manual) Nucleated RBC % Seg Neutrophils # Seg Neutrophils # Man Lymphocytes # (Manual) Monocytes # (Manual) Eosinophils # (Manual) Basophils # (Manual) POC ABG pH ABG pH POC ABG pCO2 POC ABG pO2 ABG pO2 ABG HCO3 ABG O2 Saturation ABG Hemoglobin POC Sodium POC Potassium Sodium 136 L Potassium Chloride 94.5 L Carbon Dioxide POC BUN BUN 44 H Creatinine 5.3 H Glucose 107 H POC Glucose 110 H Calcium Total Protein Albumin PTH Pre-Incision PTH Post-Excision
[2017-06-18 08:32] LABS: Hematocrit 27.2 % (30.3-42.9); Hemoglobin 8.4 gm/dl (10.1-14.3); Mean Corpuscular HGB Conc 31 % (30-34); Mean Corpuscular Volume 76 fl (79-97); Platelet Count 220 K/mm3 (140-440); Red Blood Count 3.55 M/mm3 (3.65-5.03); Red Cell Distribution Width 18.5 % (13.2-15.2); White Blood Count 16.1 K/mm3 (4.5-11.0)
[2017-06-18 08:33] LABS: Mean Corpuscular Hemoglobin 24 pg (28-32)
[2017-06-18 08:54] LABS: Albumin 2.8 g/dL (3.9-5); Albumin/Globulin Ratio 0.9 %; Bilirubin,Total 0.4 mg/dL (0.1-1.2); Calcium 10.3 mg/dL (8.4-10.2); Chloride 91.6 mmol/L (98-107); Potassium 4.3 mmol/L (3.6-5.0); Total Protein 5.9 g/dL (6.3-8.2)
--- NOTE | 2017-06-18 10:08 | Progress Note ---
Assessment and Plan Assessment and plan: 66-year-old female patient significant past medical history of hypertension and obstructive sleep apnea, ESRD on hemodialysis, breast cancer status post mastectomy underwent elective total parathyroidectomy and was admitted to ICU with respiratory failure requiring intubation, she unfortunately a stroke Acute left MCA stroke with right-sided weakness - Neurology consult appreciated -MR brain showed large left MCA acute infarct - on aspirin and statin - Cardiology consulted to rule out cardiac cause of stroke - Vascular surgery consulted no intervention needed -received mannitol for IC edema Acute hypoxic respiratory failure on MV > 96 hours - re-intubated, continue vent and planned for trache Metabolic Enchephalopathy -due to CVA and IC edema, imrpoving -continue mannitol Status post subtotal parathyroidectomy/Hypocalcemia - Continue postop care per surgery - continue to replete calcium as needed End-stage renal disease on hemodialysis - Continue hemodialysis as scheduled per nephrology Hyperkalemia -improved with HD Hypertension - Continue When necessary medication History of breast cancer status post mastectomy - Stable Morbid obesity with BMI of 47.8, - Nutrition input appreciated Moderate malnutrition -continue tube feeds Hyponatremia -reduced free water via G tube, and received NS, now improved Hypotension due to volume depletion Given IVF The high probability of a clinically significant, sudden or life threatening deterioration of the [respiratory] system(s) required my full and direct attention, intervention and personal management. The aggregate critical care time was [32] minutes. This time is in addition to time spent performing reported procedures but includes the following: [x] Data Review and interpretation [x] Patient assessment and monitoring of vital signs [x] Documentation [x] Medication orders and managementPatient would benefit by outpatient bariatric surgical evaluation for weight reduction program and medically stable CODE STATUS FULL History Interval history: Mentation is somewhat improved, she is more responsive remains intubated Hospitalist Physical - Physical exam Narrative exam: General.: Appears well, no distress, nontoxic HEENT: Moist mucous membranes, extraocular muscles intact, no lymphadenopathy Neck: supple Cardiac: S1-S2 heard Lungs: clear to auscultation bilaterally Abdomen: soft , nontender, nondistended, bowel sounds positive Extremities: no edema clubbing or cyanosis Skin: no rash or lesions Neurologic: Intubated, Patient is only moving left side of her body responds to painful stimuli, right side is not moving. does not obey commands Psych: appropriate behavior, appropriate mood, corporative, judgment intact - Constitutional Vitals: Temp Pulse Resp BP Pulse Ox 98.2 F 57 L 20 106/61 100 06/18/17 08:40 06/18/17 09:45 06/18/17 08:40 06/18/17 09:45 06/18/17 08:40 General appearance: Present: no acute distress, other (withdrawn, nonverbal) Results - Labs CBC & Chem 7: 06/18/17 08:10 06/18/17 08:10 Labs: Laboratory Last Values WBC 16.1 K/mm3 (4.5-11.0) H 06/18/17 08:10 RBC 3.55 M/mm3 (3.65-5.03) L 06/18/17 08:10 Hgb 8.4 gm/dl (10.1-14.3) L 06/18/17 08:10 POC Hgb 14.3 (12-17) 06/04/17 16:22 Hct 27.2 % (30.3-42.9) L 06/18/17 08:10 POC Hct 42 (38-51) 06/04/17 16:22 MCV 76 fl (79-97) L 06/18/17 08:10 MCH 24 pg (28-32) L 06/18/17 08:10 MCHC 31 % (30-34) 06/18/17 08:10 RDW 18.5 % (13.2-15.2) H 06/18/17 08:10 Plt Count 220 K/mm3 (140-440) 06/18/17 08:10 [place] % (Auto) 11.2 % (0.0-7.3) H 06/16/17 08:45 Eos % (Auto) 1.4 % (0.0-4.3) 06/16/17 08:45 [place] # 1.6 K/mm3 (0.0-0.8) H 06/16/17 08:45 Eos # 0.2 K/mm3 (0.0-0.4) 06/16/17 08:45 Baso # 0.1 K/mm3 (0.0-0.1) 06/16/17 08:45 Add Manual Diff Complete 06/16/17 08:45 Total Counted 100 06/16/17 08:45 Seg Neutrophils % 82.8 % (40.0-70.0) H 06/16/17 08:45 Seg Neuts % (Manual) 78.0 % (40.0-70.0) H 06/16/17 08:45 Band Neutrophils % 1.0 % 06/16/17 08:45 Lymphocytes % (Manual) 3.0 % (13.4-35.0) L 06/16/17 08:45 Reactive Lymphs % (Man) 0 % 06/16/17 08:45 Monocytes % (Manual) 9.0 % (0.0-7.3) H 06/16/17 08:45 Eosinophils % (Manual) 2.0 % (0.0-4.3) 06/16/17 08:45 Basophils % (Manual) 1.0 % (0.0-1.8) 06/16/17 08:45 Metamyelocytes % 6.0 % 06/16/17 08:45 Myelocytes % 0 % 06/16/17 08:45 Promyelocytes % 0 % 06/16/17 08:45 Blast Cells % 0 % 06/16/17 08:45 Nucleated RBC % 1.0 % (0.0-0.9) H 06/16/17 08:45 Seg Neutrophils # 12.2 K/mm3 (1.8-7.7) H 06/16/17 08:45 Seg Neutrophils # Man 17.1 K/mm3 (1.8-7.7) H 06/16/17 08:45 Band Neutrophils # 0.2 K/mm3 06/16/17 08:45 Lymphocytes # (Manual) 0.7 K/mm3 (1.2-5.4) L 06/16/17 08:45 Abs React Lymphs (Man) 0.0 K/mm3 06/16/17 08:45 Monocytes # (Manual) 2.0 K/mm3 (0.0-0.8) H 06/16/17 08:45 Eosinophils # (Manual) 0.4 K/mm3 (0.0-0.4) 06/16/17 08:45 Basophils # (Manual) 0.2 K/mm3 (0.0-0.1) H 06/16/17 08:45 Metamyelocytes # 1.3 K/mm3 06/16/17 08:45 Myelocytes # 0.0 K/mm3 06/16/17 08:45 Promyelocytes # 0.0 K/mm3 06/16/17 08:45 Blast Cells # 0.0 K/mm3 06/16/17 08:45 WBC Morphology Not Reportable 06/16/17 08:45 Hypersegmented Neuts Not Reportable 06/16/17 08:45 Hyposegmented Neuts Not Reportable 06/16/17 08:45 Hypogranular Neuts Not Reportable 06/16/17 08:45 Smudge Cells Not Reportable 06/16/17 08:45 Toxic Granulation Not Reportable 06/16/17 08:45 Toxic Vacuolation Not Reportable 06/16/17 08:45 Dohle Bodies Not Reportable 06/16/17 08:45 Pelger-Huet Anomaly Not Reportable 06/16/17 08:45 Sunita Rods Not Reportable 06/16/17 08:45 Platelet Estimate Cons 06/16/17 08:45 Clumped Platelets Not Reportable 06/16/17 08:45 Plt Clumps, EDTA Not Reportable 06/16/17 08:45 Large Platelets Not Reportable 06/16/17 08:45 Giant Platelets Not Reportable 06/16/17 08:45 Platelet Satelliting Not Reportable 06/16/17 08:45 Plt Morphology Comment Not Reportable 06/16/17 08:45 RBC Morphology Not Reportable 06/16/17 08:45 Dimorphic RBCs Not Reportable 06/16/17 08:45 Polychromasia Not Reportable 06/16/17 08:45 Hypochromasia 2+ 06/16/17 08:45 Poikilocytosis Not Reportable 06/16/17 08:45 Anisocytosis Not Reportable 06/16/17 08:45 Microcytosis 1+ 06/16/17 08:45 Macrocytosis Not Reportable 06/16/17 08:45 Spherocytes Not Reportable 06/16/17 08:45 Pappenheimer Bodies Not Reportable 06/16/17 08:45 Sickle Cells Not Reportable 06/16/17 08:45 Target Cells Not Reportable 06/16/17 08:45 Tear Drop Cells Few 06/16/17 08:45 Ovalocytes Not Reportable 06/16/17 08:45 Helmet Cells Not Reportable 06/16/17 08:45 [place] Bodies Not Reportable 06/16/17 08:45 Barlow Rings Not Reportable 06/16/17 08:45 [place] Cells Not Reportable 06/16/17 08:45 Bite Cells Not Reportable 06/16/17 08:45 Crenated Cell Not Reportable 06/16/17 08:45 Elliptocytes Not Reportable 06/16/17 08:45 Acanthocytes (Spur) Not Reportable 06/16/17 08:45 Rouleaux Not Reportable 06/16/17 08:45 Hemoglobin C Crystals Not Reportable 06/16/17 08:45 Schistocytes Few 06/16/17 08:45 Malaria parasites Not Reportable 06/16/17 08:45 [place] Bodies Not Reportable 06/16/17 08:45 Hem Pathologist Commnt No 06/16/17 08:45 PT 13.5 Sec. (12.2-14.9) 06/09/17 16:55 INR 0.98 (0.87-1.13) 06/09/17 16:55 APTT 29.9 Sec. (24.2-36.6) 06/09/17 16:55 POC ABG pH 7.556 (7.35-7.45) H 06/11/17 06:51 ABG pH 7.357 pH Units (7.350-7.450) 06/16/17 09:25 POC ABG pCO2 34.8 (35-45) L 06/11/17 06:51 ABG pCO2 49.4 mm Hg 06/16/17 09:25 POC ABG pO2 125 (80-105) H 06/11/17 06:51 ABG pO2 102.0 mm Hg (80.0-90.0) H 06/16/17 09:25 POC ABG HCO3 30.9 06/11/17 06:51 ABG HCO3 27.1 mmol/L (20.0-26.0) H 06/16/17 09:25 POC ABG Total CO2 32 06/11/17 06:51 POC ABG O2 Sat 99 06/11/17 06:51 ABG O2 Saturation 97.5 % (95.0-99.0) 06/16/17 09:25 ABG O2 Content 12.3 (0.0-44) 06/16/17 09:25 POC ABG Base Excess 9 06/11/17 06:51 ABG Base Excess 1.2 mmol/L (-2.0-3.0) 06/16/17 09:25 ABG Hemoglobin 9.0 gm/dl (12.0-16.0) L 06/16/17 09:25 ABG Carboxyhemoglobin 1.7 % (0.0-5.0) 06/16/17 09:25 ABG Methemoglobin 0.4 % (0.0-1.5) 06/16/17 09:25 Oxyhemoglobin 95.4 % (95.0-99.0) 06/16/17 09:25 POC Sodium 137 mmol/L (138-146) L 06/04/17 16:22 POC Potassium 5.3 (3.5-4.9) H 06/04/17 16:22 POC Chloride 102 (98-109) 06/04/17 16:22 FiO2 35 % 06/16/17 09:25 Sodium 134 mmol/L (137-145) L 06/18/17 08:10 Potassium 4.3 mmol/L (3.6-5.0) 06/18/17 08:10 Chloride 91.6 mmol/L (98-107) L 06/18/17 08:10 Carbon Dioxide 28 mmol/L (22-30) 06/18/17 08:10 Anion Gap 19 mmol/L 06/18/17 08:10 POC BUN 45 mg/dl (8-26) H 06/04/17 16:22 BUN 68 mg/dL (7-17) H 06/18/17 08:10 Creatinine 7.2 mg/dL (0.7-1.2) H 06/18/17 08:10 Estimated GFR 7 ml/min 06/18/17 08:10 BUN/Creatinine Ratio 9 % 06/18/17 08:10 Glucose 100 mg/dL (65-100) 06/18/17 08:10 POC Glucose 98 (70-105) 06/18/17 05:36 Osmolality 312 Mosm/kg 06/14/17 09:25 Calcium 10.3 mg/dL (8.4-10.2) H 06/18/17 08:10 Phosphorus 4.50 mg/dL (2.5-4.5) 06/06/17 07:13 Magnesium 1.90 mg/dL (1.7-2.3) 06/16/17 11:00 Total Bilirubin 0.40 mg/dL (0.1-1.2) 06/18/17 08:10 AST 14 units/L (5-40) 06/18/17 08:10 ALT 6 units/L (7-56) L 06/18/17 08:10 Alkaline Phosphatase 92 units/L (35-129) 06/18/17 08:10 Total Protein 5.9 g/dL (6.3-8.2) L 06/18/17 08:10 Albumin 2.8 g/dL (3.9-5) L 06/18/17 08:10 Albumin/Globulin Ratio 0.9 % 06/18/17 08:10 Triglycerides 132 mg/dL (2-149) 06/09/17 11:49 Cholesterol 171 mg/dL (50-199) 06/09/17 11:49 LDL Cholesterol Direct 95 mg/dL (50-130) 06/09/17 11:49 HDL Cholesterol 50 mg/dL (40-59) 06/09/17 11:49 Cholesterol/HDL Ratio 3.42 % 06/09/17 11:49 PTH Pre-Incision 641.9 (11.1-79.5) H 06/04/17 13:55 PTH Post-Excision 154.7 (11.1-79.5) H 06/04/17 13:55 PTH Intact Intraop 5 m Not Reportable 06/04/17 13:55
--- NOTE | 2017-06-18 10:16 | Progress Note ---
Assessment and Plan Assessment: Acute CVA / AMS - head CT showed acute stroke in MCA, no hemorrhage; TTE revealed no cardiac source for CVA Thrombus in distal L ICA and MCA - per chart, neuro currently recommends against heparin gtt in setting of acute CVA and risk of conversion to hemorrhagic CVA. Hyperparathyroidism, s/p subtotal parathyroidectomy on 06/04/2017 CMP - EF 40-45%; no current clinical evidence of acute heart failure Acute on chronic respiratory failure - for trach HTN ESRD on HD Hypokalemia Hypocalcemia Leukocytosis - pt with intermittent low grade fever; CXR with NAF Morbid obesity History of breast cancer status post mastectomy Plan: Cont present cardiac regimen. BB and ACEI/ARB held in setting of hypotension. Consider cautious introduction if BPs remain WNL. Cont ASA and statin. Trach scheduled for Wednesday, possible PEG. Will need LTAC following trach and PEG. Currently stable cardiac status. Will follow peripherally over the weekend. The patient has been seen in conjunction with Dr. Bradley who agrees with the assessment and plan of care. Subjective Date of service: 06/18/17 Principal diagnosis: ARM/MV/Post hyperparathy./ESRD Interval history: Pt remains intubated and unresponsive. No acute events. VSS. Objective Last Vital Signs Temp 98.2 F 06/18/17 08:40 Pulse 56 L 06/18/17 10:00 Resp 19 06/18/17 10:00 BP 115/64 06/18/17 10:00 Pulse Ox 100 06/18/17 09:30 - Physical Examination General: Other (intubated, unresponsive) HEENT: Positive: PERRL, Mucus Membranes Moist Neck: Positive: neck supple, trachea midline Cardiac: Positive: Reg Rate and Rhythm, S1/S2 Lungs: Positive: Decreased Breath Sounds, Ventilated Respirations Neuro: Positive: Weakness (right-sided), Other (intubated, unresponsive) Abdomen: Positive: Unremarkable. Negative: Tender Skin: Positive: Clear. Negative: Rash, Wound Musculoskeletal: No Fluid Collection, No Pain, Normal Range of Motion Extremities: Absent: edema - Labs and Meds Cardiac Enzymes 06/18/17 Range/Units 08:10 AST 14 (5-40) units/L CBC 06/18/17 Range/Units 08:10 WBC 16.1 H (4.5-11.0) K/mm3 RBC 3.55 L (3.65-5.03) M/mm3 Hgb 8.4 L (10.1-14.3) gm/dl Hct 27.2 L (30.3-42.9) % Plt Count 220 (140-440) K/mm3 Comprehensive Metabolic Panel 06/18/17 Range/Units 08:10 Sodium 134 L (137-145) mmol/L Potassium 4.3 (3.6-5.0) mmol/L Chloride 91.6 L (98-107) mmol/L Carbon Dioxide 28 (22-30) mmol/L BUN 68 H (7-17) mg/dL Creatinine 7.2 H (0.7-1.2) mg/dL Glucose 100 (65-100) mg/dL Calcium 10.3 H (8.4-10.2) mg/dL AST 14 (5-40) units/L ALT 6 L (7-56) units/L Alkaline Phosphatase 92 (35-129) units/L Total Protein 5.9 L (6.3-8.2) g/dL Albumin 2.8 L (3.9-5) g/dL - Imaging and Cardiology EKG: image reviewed Echo: report reviewed (LV mildly dilated, mild to moderate LVH, EF 40-45%, LA moderate to severely dilated, mild MR, mild AR, mild TR. ) - EKG Sinus rhythms and dysrhythmias: sinus rhythm
[2017-06-18] MEDS: PROCRIT IV PRN (12:16)
[2017-06-18] MEDS: HEPARIN SUB-Q SCH ×2 (13:28→21:38)
[2017-06-18] MEDS: PEPCID PO SCH (13:28)
[2017-06-18] MEDS: BABY ASPIRIN PO SCH (13:29)
[2017-06-18] MEDS: ROCALTROL PO SCH (13:29)
[2017-06-18] MEDS: TUMS PO SCH ×3 (13:30→21:38)
--- NOTE | 2017-06-18 15:09 | Progress Note ---
Assessment and Plan Impression: * ESRD * Hypertension * s/p Parathyroidectomy * Acute CVA * Acute respiratory failure * Anemia secondary to ESRD * Hyponatremia Plan: * Hemodialysis today per MWF schedule * Adjust bath to 3k/2.5Ca bath as serum calcium has improved * Continue current calcium supplement * Vent management per critical care * Epogen TIW * Nutrition per primary team * Strict I/O * HD on Wednesday per sugvioleta request as pt is planned to have trach/PEG Wednesday Subjective Date of service: 06/18/17 Principal diagnosis: ARM/MV/Post hyperparathy./ESRD Interval history: No acute events overnight. Objective - Vital Signs Vital signs: Vital Signs - 12hr 06/18/17 06/18/17 06/18/17 03:30 04:00 04:30 Temperature 98.9 F Pulse Rate 59 L 57 L 56 L Pulse Rate [ 64 From Monitor] Respiratory 12 13 14 Rate Blood Pressure 114/61 108/59 97/58 O2 Sat by Pulse 99 99 97 Oximetry O2 Sat by Pulse Oximetry [ Anterior Bilateral Throughout] 06/18/17 06/18/17 06/18/17 05:00 05:30 06:00 Temperature Pulse Rate 55 L 59 L 53 L Pulse Rate [ From Monitor] Respiratory 13 13 13 Rate Blood Pressure 95/56 115/64 102/56 O2 Sat by Pulse 99 98 99 Oximetry O2 Sat by Pulse Oximetry [ Anterior Bilateral Throughout] 06/18/17 06/18/17 06/18/17 06:30 07:00 07:15 Temperature Pulse Rate 53 L 54 L 60 Pulse Rate [ From Monitor] Respiratory 12 13 14 Rate Blood Pressure 111/59 100/55 110/55 O2 Sat by Pulse 100 99 98 Oximetry O2 Sat by Pulse Oximetry [ Anterior Bilateral Throughout] 06/18/17 06/18/17 06/18/17 07:30 07:49 08:00 Temperature 98.2 F Pulse Rate 58 L 59 L Pulse Rate [ From Monitor] Respiratory 19 20 Rate Blood Pressure 109/60 97/55 O2 Sat by Pulse 98 Oximetry O2 Sat by Pulse Oximetry [ Anterior Bilateral Throughout] 06/18/17 06/18/17 06/18/17 08:30 08:40 08:50 Temperature 98.2 F Pulse Rate 59 L 57 L 63 Pulse Rate [ From Monitor] Respiratory 20 20 Rate Blood Pressure 103/57 105/53 105/53 O2 Sat by Pulse Oximetry O2 Sat by Pulse 100 Oximetry [ Anterior Bilateral Throughout] 06/18/17 06/18/17 06/18/17 09:00 09:15 09:30 Temperature Pulse Rate 57 L 56 L 55 L Pulse Rate [ From Monitor] Respiratory 19 18 Rate Blood Pressure 105/53 109/60 106/60 O2 Sat by Pulse 99 100 Oximetry O2 Sat by Pulse Oximetry [ Anterior Bilateral Throughout] 06/18/17 06/18/17 06/18/17 09:45 10:00 10:15 Temperature Pulse Rate 57 L 56 L 58 L Pulse Rate [ From Monitor] Respiratory 19 Rate Blood Pressure 106/61 115/64 117/67 O2 Sat by Pulse Oximetry O2 Sat by Pulse Oximetry [ Anterior Bilateral Throughout] 06/18/17 06/18/17 06/18/17 10:30 10:45 11:00 Temperature Pulse Rate 57 L 57 L 57 L Pulse Rate [ From Monitor] Respiratory 21 19 Rate Blood Pressure 118/71 135/72 112/74 O2 Sat by Pulse 99 98 Oximetry O2 Sat by Pulse Oximetry [ Anterior Bilateral Throughout] 06/18/17 06/18/17 06/18/17 11:15 11:30 11:45 Temperature Pulse Rate 64 59 L 58 L Pulse Rate [ From Monitor] Respiratory 20 Rate Blood Pressure 115/68 123/71 124/58 O2 Sat by Pulse Oximetry O2 Sat by Pulse Oximetry [ Anterior Bilateral Throughout] 06/18/17 06/18/17 06/18/17 12:00 12:05 12:15 Temperature 97.9 F Pulse Rate 64 59 L 59 L Pulse Rate [ From Monitor] Respiratory 14 Rate Blood Pressure 123/76 123/76 119/70 O2 Sat by Pulse 99 Oximetry O2 Sat by Pulse Oximetry [ Anterior Bilateral Throughout] 06/18/17 06/18/17 06/18/17 12:30 12:35 12:49 Temperature 97.4 F L Pulse Rate 62 63 63 Pulse Rate [ From Monitor] Respiratory 21 21 Rate Blood Pressure 106/70 160/70 111/67 O2 Sat by Pulse 95 Oximetry O2 Sat by Pulse 100 Oximetry [ Anterior Bilateral Throughout] 06/18/17 06/18/17 06/18/17 13:00 13:30 14:00 Temperature Pulse Rate 65 64 65 Pulse Rate [ From Monitor] Respiratory 23 21 21 Rate Blood Pressure 114/68 116/65 118/68 O2 Sat by Pulse 92 88 Oximetry O2 Sat by Pulse Oximetry [ Anterior Bilateral Throughout] - General Appearance General appearance: intubated EENT: ATNC Respiratory: Present: Clear to Ascultation Cardiology: regular, S1S2 Gastrointestinal: normal, no tenderness, no distended Integumentary: no rash Neurologic: no focal deficit Musculoskeletal: other (no edema) Psychiatric: cooperative - Lab 06/18/17 08:10 06/18/17 08:10 Most recent lab results ABG pH 7.357 pH Units (7.350-7.450) 06/16/17 09:25 ABG pCO2 49.4 mm Hg 06/16/17 09:25 ABG pO2 102.0 mm Hg (80.0-90.0) H 06/16/17 09:25 ABG HCO3 27.1 mmol/L (20.0-26.0) H 06/16/17 09:25 ABG O2 Saturation 97.5 % (95.0-99.0) 06/16/17 09:25 Calcium 10.3 mg/dL (8.4-10.2) H 06/18/17 08:10 Phosphorus 4.50 mg/dL (2.5-4.5) 06/06/17 07:13 Magnesium 1.90 mg/dL (1.7-2.3) 06/16/17 11:00
[2017-06-19] MEDS: PROAMATINE PO SCH ×3 (05:15→21:51)
[2017-06-19 06:11] LABS: ABG HCO3 28.5 mmol/L (20.0-26.0); ABG Oxygen Saturation 98.1 % (95.0-99.0); ABG PCO2 48.5 mm Hg; ABG PH 7.387 pH Units (7.350-7.450); ABG PO2 116.2 mm Hg (80.0-90.0)
[2017-06-19 08:13] LABS: Calcium 10.3 mg/dL (8.4-10.2); Chloride 94.3 mmol/L (98-107); Potassium 4.2 mmol/L (3.6-5.0)
[2017-06-19 08:18] LABS: Hematocrit 30.1 % (30.3-42.9); Hemoglobin 9.2 gm/dl (10.1-14.3); Mean Corpuscular HGB Conc 30 % (30-34); Mean Corpuscular Volume 77 fl (79-97); Platelet Count 258 K/mm3 (140-440); Red Blood Count 3.93 M/mm3 (3.65-5.03); Red Cell Distribution Width 18.2 % (13.2-15.2); White Blood Count 19.3 K/mm3 (4.5-11.0)
[2017-06-19 08:25] LABS: Mean Corpuscular Hemoglobin 23 pg (28-32)
[2017-06-19] MEDS: TUMS PO SCH ×3 (09:11→21:50)
[2017-06-19] MEDS: ROCALTROL PO SCH (09:11)
[2017-06-19] MEDS: BABY ASPIRIN PO SCH (09:11)
[2017-06-19] MEDS: HEPARIN SUB-Q SCH ×2 (09:11→21:51)
[2017-06-19] MEDS: PEPCID PO SCH (09:11)
--- NOTE | 2017-06-19 11:45 | Progress Note ---
Assessment and Plan 66 y/o female with post-op respiratory failure, likely from pulmonary edema and possible airway edema with end stage renal disease. 1. Trach scheduled for Wednesday, possible peg 2. HD per renal 3. No sedation, continue to leave off 4. Follow up Neurology recs, none since 06/12 5. Overall prognosis is guarded to poor 6. Continue PSV trials as tolerated. 7. Will need ltach once trached and pegged CCT 31 minutes. Subjective Date of service: 06/19/17 Principal diagnosis: ARM/MV/Post hyperparathy./ESRD Interval history: No acute events. Breathing stable. Plan for trach on Wednesday Objective Vital Signs - 12hr 06/19/17 06/19/17 06/19/17 00:00 00:30 01:00 Temperature 99.6 F Pulse Rate 71 70 69 Pulse Rate [ 74 From Monitor] Respiratory 17 15 15 Rate Blood Pressure 118/68 118/68 111/66 O2 Sat by Pulse 100 98 98 Oximetry 06/19/17 06/19/17 06/19/17 01:30 02:00 02:30 Temperature Pulse Rate 70 68 69 Pulse Rate [ From Monitor] Respiratory 17 13 12 Rate Blood Pressure 122/70 106/56 108/60 O2 Sat by Pulse 100 97 99 Oximetry 06/19/17 06/19/17 06/19/17 03:00 03:21 03:30 Temperature Pulse Rate 66 69 71 Pulse Rate [ From Monitor] Respiratory 14 15 Rate Blood Pressure 126/68 105/66 105/66 O2 Sat by Pulse 99 100 100 Oximetry 06/19/17 06/19/17 06/19/17 03:31 04:00 04:30 Temperature 99.4 F Pulse Rate 69 71 Pulse Rate [ 68 From Monitor] Respiratory 13 17 Rate Blood Pressure 119/63 117/72 O2 Sat by Pulse 100 100 Oximetry 06/19/17 06/19/17 06/19/17 05:00 05:30 06:00 Temperature Pulse Rate 69 69 65 Pulse Rate [ From Monitor] Respiratory 16 15 12 Rate Blood Pressure 115/58 117/58 109/54 O2 Sat by Pulse 98 100 98 Oximetry 06/19/17 06/19/17 06/19/17 06:30 07:00 07:30 Temperature Pulse Rate 65 65 70 Pulse Rate [ From Monitor] Respiratory 12 12 16 Rate Blood Pressure 102/56 98/52 100/51 O2 Sat by Pulse 98 100 98 Oximetry 06/19/17 06/19/17 06/19/17 07:38 07:58 08:00 Temperature 98.2 F Pulse Rate 77 79 78 Pulse Rate [ From Monitor] Respiratory 23 20 Rate Blood Pressure 127/61 124/62 111/54 O2 Sat by Pulse 100 100 98 Oximetry 06/19/17 06/19/17 06/19/17 08:30 09:00 09:30 Temperature Pulse Rate 70 68 70 Pulse Rate [ From Monitor] Respiratory 13 12 17 Rate Blood Pressure 100/52 103/54 105/54 O2 Sat by Pulse 98 99 98 Oximetry 06/19/17 06/19/17 10:00 11:38 Temperature Pulse Rate 67 66 Pulse Rate [ From Monitor] Respiratory 13 Rate Blood Pressure 92/52 103/55 O2 Sat by Pulse 98 100 Oximetry Constitutional: no acute distress, other (intubated, some response to tactile stimulation otherwise nonresponsive) Eyes: non-icteric ENT: other (orally intubated) Neck: supple, no JVD, other (no stridor) Effort: normal Ascultation: Bilateral: clear, diminished breath sounds, rales Percussion: Bilateral: not dull Cardiovascular: regular rate and rhythm Gastrointestinal: normoactive bowel sounds, soft, non-tender, non-distended, other (obese) Integumentary: normal Extremities: no cyanosis, no edema, pink and warm, edema Neurologic: other (altered mentation, R-hemiparesis,GCS 3-4) Psychiatric: mood appropriate, affect normal CBC and BMP: 06/19/17 07:14 06/19/17 07:15 ABG, PT/INR, D-dimer: ABG POC ABG pH 7.556 (7.35-7.45) H 06/11/17 06:51 ABG pH 7.387 pH Units (7.350-7.450) 06/19/17 05:23 POC ABG pCO2 34.8 (35-45) L 06/11/17 06:51 ABG pCO2 48.5 mm Hg 06/19/17 05:23 POC ABG pO2 125 (80-105) H 06/11/17 06:51 ABG pO2 116.2 mm Hg (80.0-90.0) H 06/19/17 05:23 POC ABG HCO3 30.9 06/11/17 06:51 POC ABG Total CO2 32 06/11/17 06:51 POC ABG O2 Sat 99 06/11/17 06:51 ABG O2 Saturation 98.1 % (95.0-99.0) 06/19/17 05:23 PT/INR, D-dimer PT 13.5 Sec. (12.2-14.9) 06/09/17 16:55 INR 0.98 (0.87-1.13) 06/09/17 16:55 Abnormal lab findings: Abnormal Labs 06/04/17 06/04/17 06/04/17 00:01 12:50 13:55 WBC 11.4 H RBC Hgb Hct POC Hct MCV 76 L MCH 23 L RDW 18.5 H Tift % (Auto) Tift # Seg Neutrophils % Seg Neuts % (Manual) 89.0 H Lymphocytes % (Manual) 6.0 L Monocytes % (Manual) Nucleated RBC % Seg Neutrophils # Seg Neutrophils # Man 10.1 H Lymphocytes # (Manual) 0.7 L Monocytes # (Manual) Eosinophils # (Manual) Basophils # (Manual) POC ABG pH ABG pH POC ABG pCO2 POC ABG pO2 ABG pO2 ABG HCO3 ABG O2 Saturation ABG Hemoglobin POC Sodium POC Potassium Sodium Potassium 5.1 H 5.2 H Chloride Carbon Dioxide POC BUN BUN 48 H Creatinine 6.2 H Glucose POC Glucose Calcium ALT Total Protein Albumin PTH Pre-Incision PTH Post-Excision 06/04/17 06/04/17 06/04/17 13:55 16:10 16:16 WBC RBC Hgb Hct POC Hct 37 L MCV MCH RDW Tift % (Auto) Tift # Seg Neutrophils % Seg Neuts % (Manual) Lymphocytes % (Manual) Monocytes % (Manual) Nucleated RBC % Seg Neutrophils # Seg Neutrophils # Man Lymphocytes # (Manual) Monocytes # (Manual) Eosinophils # (Manual) Basophils # (Manual) POC ABG pH 7.306 L ABG pH POC ABG pCO2 58.7 H POC ABG pO2 338 H ABG pO2 ABG HCO3 ABG O2 Saturation ABG Hemoglobin POC Sodium 135 L POC Potassium 5.2 H Sodium Potassium Chloride Carbon Dioxide POC BUN 44 H BUN Creatinine Glucose POC Glucose 183 H Calcium ALT Total Protein Albumin PTH Pre-Incision 641.9 H PTH Post-Excision 154.7 H 06/04/17 06/04/17 06/04/17 16:22 20:44 21:29 WBC RBC Hgb Hct POC Hct MCV MCH RDW Tift % (Auto) Tift # Seg Neutrophils % Seg Neuts % (Manual) Lymphocytes % (Manual) Monocytes % (Manual) Nucleated RBC % Seg Neutrophils # Seg Neutrophils # Man Lymphocytes # (Manual) Monocytes # (Manual) Eosinophils # (Manual) Basophils # (Manual) POC ABG pH 7.484 H ABG pH POC ABG pCO2 POC ABG pO2 ABG pO2 ABG HCO3 ABG O2 Saturation ABG Hemoglobin POC Sodium 137 L POC Potassium 5.3 H Sodium Potassium 5.2 H Chloride Carbon Dioxide POC BUN 45 H BUN 51 H Creatinine 6.5 H Glucose 119 H POC Glucose 176 H Calcium ALT Total Protein Albumin PTH Pre-Incision PTH Post-Excision 06/05/17 06/05/17 06/05/17 03:31 11:44 11:44 WBC 13.4 H RBC Hgb Hct POC Hct MCV 75 L MCH 23 L RDW 18.2 H Tift % (Auto) Tift # Seg Neutrophils % Seg Neuts % (Manual) Lymphocytes % (Manual) Monocytes % (Manual) Nucleated RBC % Seg Neutrophils # Seg Neutrophils # Man Lymphocytes # (Manual) Monocytes # (Manual) Eosinophils # (Manual) Basophils # (Manual) POC ABG pH ABG pH POC ABG pCO2 POC ABG pO2 75 L ABG pO2 ABG HCO3 ABG O2 Saturation ABG Hemoglobin POC Sodium POC Potassium Sodium Potassium 5.8 H Chloride Carbon Dioxide POC BUN BUN 56 H Creatinine 7.0 H Glucose 111 H POC Glucose Calcium 8.2 L ALT Total Protein 6.2 L Albumin 3.1 L PTH Pre-Incision PTH Post-Excision 06/06/17 06/06/17 06/07/17 05:07 07:13 03:53 WBC RBC Hgb Hct POC Hct MCV MCH RDW Tift % (Auto) Tift # Seg Neutrophils % Seg Neuts % (Manual) Lymphocytes % (Manual) Monocytes % (Manual) Nucleated RBC % Seg Neutrophils # Seg Neutrophils # Man Lymphocytes # (Manual) Monocytes # (Manual) Eosinophils # (Manual) Basophils # (Manual) POC ABG pH ABG pH POC ABG pCO2 POC ABG pO2 116 H 137 H ABG pO2 ABG HCO3 ABG O2 Saturation ABG Hemoglobin POC Sodium POC Potassium Sodium Potassium Chloride Carbon Dioxide POC BUN BUN 32 H Creatinine 4.9 H Glucose 115 H POC Glucose Calcium 7.9 L ALT Total Protein 5.7 L Albumin 3.3 L PTH Pre-Incision PTH Post-Excision 06/07/17 06/07/17 06/07/17 05:21 05:21 16:54 WBC RBC Hgb Hct POC Hct MCV 75 L MCH 24 L RDW 18.7 H Tift % (Auto) Tift # Seg Neutrophils % Seg Neuts % (Manual) Lymphocytes % (Manual) Monocytes % (Manual) Nucleated RBC % Seg Neutrophils # Seg Neutrophils # Man Lymphocytes # (Manual) Monocytes # (Manual) Eosinophils # (Manual) Basophils # (Manual) POC ABG pH ABG pH POC ABG pCO2 POC ABG pO2 ABG pO2 ABG HCO3 ABG O2 Saturation ABG Hemoglobin POC Sodium POC Potassium Sodium Potassium 5.4 H Chloride Carbon Dioxide POC BUN BUN 52 H Creatinine 6.2 H Glucose 107 H POC Glucose 110 H Calcium 8.0 L ALT Total Protein Albumin PTH Pre-Incision PTH Post-Excision 06/07/17 06/07/17 06/08/17 17:38 23:32 04:00 WBC RBC Hgb Hct POC Hct MCV 77 L MCH 23 L RDW 18.3 H Tift % (Auto) Tift # Seg Neutrophils % Seg Neuts % (Manual) 78.0 H Lymphocytes % (Manual) Monocytes % (Manual) Nucleated RBC % 3.0 H Seg Neutrophils # Seg Neutrophils # Man 7.8 H Lymphocytes # (Manual) Monocytes # (Manual) Eosinophils # (Manual) Basophils # (Manual) POC ABG pH 7.310 L ABG pH POC ABG pCO2 51.9 H POC ABG pO2 ABG pO2 ABG HCO3 ABG O2 Saturation ABG Hemoglobin POC Sodium POC Potassium Sodium Potassium Chloride Carbon Dioxide POC BUN BUN Creatinine Glucose POC Glucose 63 L Calcium ALT Total Protein Albumin PTH Pre-Incision PTH Post-Excision 06/08/17 06/08/17 06/08/17 04:00 10:51 11:25 WBC RBC Hgb Hct POC Hct MCV MCH RDW Tift % (Auto) Tift # Seg Neutrophils % Seg Neuts % (Manual) Lymphocytes % (Manual) Monocytes % (Manual) Nucleated RBC % Seg Neutrophils # Seg Neutrophils # Man Lymphocytes # (Manual) Monocytes # (Manual) Eosinophils # (Manual) Basophils # (Manual) POC ABG pH 7.336 L ABG pH POC ABG pCO2 55.1 H POC ABG pO2 ABG pO2 ABG HCO3 ABG O2 Saturation ABG Hemoglobin POC Sodium POC Potassium Sodium Potassium Chloride 96.9 L Carbon Dioxide POC BUN BUN 29 H Creatinine 4.6 H Glucose POC Glucose 108 H Calcium 8.3 L ALT Total Protein Albumin PTH Pre-Incision PTH Post-Excision 06/08/17 06/09/17 06/09/17 14:22 11:42 11:42 WBC RBC Hgb Hct POC Hct MCV 76 L MCH 24 L RDW 18.3 H Tift % (Auto) Tift # Seg Neutrophils % Seg Neuts % (Manual) 80.0 H Lymphocytes % (Manual) 10.0 L Monocytes % (Manual) Nucleated RBC % 2.0 H Seg Neutrophils # Seg Neutrophils # Man Lymphocytes # (Manual) 1.0 L Monocytes # (Manual) Eosinophils # (Manual) Basophils # (Manual) POC ABG pH ABG pH POC ABG pCO2 52.8 H POC ABG pO2 77 L ABG pO2 ABG HCO3 ABG O2 Saturation ABG Hemoglobin POC Sodium POC Potassium Sodium Potassium 5.4 H D Chloride 97.1 L Carbon Dioxide POC BUN BUN 58 H Creatinine 6.6 H Glucose POC Glucose Calcium 7.2 L ALT Total Protein Albumin PTH Pre-Incision PTH Post-Excision 06/09/17 06/10/17 06/10/17 12:04 03:29 03:29 WBC 13.7 H RBC Hgb Hct POC Hct MCV 77 L MCH 24 L RDW 17.9 H Tift % (Auto) Tift # Seg Neutrophils % Seg Neuts % (Manual) 82.0 H Lymphocytes % (Manual) 7.0 L Monocytes % (Manual) Nucleated RBC % 6.0 H Seg Neutrophils # Seg Neutrophils # Man 11.2 H Lymphocytes # (Manual) 1.0 L Monocytes # (Manual) Eosinophils # (Manual) Basophils # (Manual) POC ABG pH ABG pH POC ABG pCO2 POC ABG pO2 ABG pO2 ABG HCO3 ABG O2 Saturation ABG Hemoglobin POC Sodium POC Potassium Sodium Potassium Chloride 94.2 L Carbon Dioxide POC BUN BUN 32 H Creatinine 4.6 H Glucose 106 H POC Glucose 106 H Calcium 8.0 L ALT Total Protein Albumin PTH Pre-Incision PTH Post-Excision 06/10/17 06/11/17 06/11/17 05:27 06:00 06:00 WBC 11.8 H RBC Hgb Hct POC Hct MCV 77 L MCH 24 L RDW 18.3 H Tift % (Auto) Tift # Seg Neutrophils % Seg Neuts % (Manual) 88.0 H Lymphocytes % (Manual) 7.0 L Monocytes % (Manual) Nucleated RBC % 1.0 H Seg Neutrophils # Seg Neutrophils # Man 10.4 H Lymphocytes # (Manual) 0.8 L Monocytes # (Manual) Eosinophils # (Manual) Basophils # (Manual) POC ABG pH ABG pH POC ABG pCO2 POC ABG pO2 ABG pO2 ABG HCO3 ABG O2 Saturation ABG Hemoglobin POC Sodium POC Potassium Sodium Potassium Chloride Carbon Dioxide POC BUN BUN 53 H Creatinine 6.0 H Glucose POC Glucose 106 H Calcium 6.3 L D ALT Total Protein Albumin PTH Pre-Incision PTH Post-Excision 06/11/17 06/11/17 06/11/17 06:51 12:10 16:54 WBC RBC Hgb Hct POC Hct MCV MCH RDW Tift % (Auto) Tift # Seg Neutrophils % Seg Neuts % (Manual) Lymphocytes % (Manual) Monocytes % (Manual) Nucleated RBC % Seg Neutrophils # Seg Neutrophils # Man Lymphocytes # (Manual) Monocytes # (Manual) Eosinophils # (Manual) Basophils # (Manual) POC ABG pH 7.556 H ABG pH POC ABG pCO2 34.8 L POC ABG pO2 125 H ABG pO2 ABG HCO3 ABG O2 Saturation ABG Hemoglobin POC Sodium POC Potassium Sodium Potassium Chloride Carbon Dioxide POC BUN BUN Creatinine Glucose POC Glucose 115 H 106 H Calcium ALT Total Protein Albumin PTH Pre-Incision PTH Post-Excision 06/11/17 06/12/17 06/12/17 20:20 00:06 04:20 WBC RBC Hgb Hct POC Hct MCV MCH RDW Tift % (Auto) Tift # Seg Neutrophils % Seg Neuts % (Manual) Lymphocytes % (Manual) Monocytes % (Manual) Nucleated RBC % Seg Neutrophils # Seg Neutrophils # Man Lymphocytes # (Manual) Monocytes # (Manual) Eosinophils # (Manual) Basophils # (Manual) POC ABG pH ABG pH 7.512 H 7.514 H POC ABG pCO2 POC ABG pO2 ABG pO2 148.5 H 209.1 H ABG HCO3 ABG O2 Saturation 99.3 H ABG Hemoglobin POC Sodium POC Potassium Sodium Potassium Chloride Carbon Dioxide POC BUN BUN Creatinine Glucose POC Glucose 108 H Calcium ALT Total Protein Albumin PTH Pre-Incision PTH Post-Excision 06/12/17 06/12/17 06/12/17 05:24 05:30 05:30 WBC 14.3 H RBC Hgb Hct POC Hct MCV 75 L MCH 24 L RDW 18.5 H Tift % (Auto) Tift # Seg Neutrophils % Seg Neuts % (Manual) 73.0 H Lymphocytes % (Manual) 6.0 L Monocytes % (Manual) 9.0 H Nucleated RBC % 1.0 H Seg Neutrophils # Seg Neutrophils # Man 10.4 H Lymphocytes # (Manual) 0.9 L Monocytes # (Manual) 1.3 H Eosinophils # (Manual) Basophils # (Manual) POC ABG pH ABG pH POC ABG pCO2 POC ABG pO2 ABG pO2 ABG HCO3 ABG O2 Saturation ABG Hemoglobin POC Sodium POC Potassium Sodium 131 L D Potassium Chloride 90.6 L Carbon Dioxide POC BUN BUN 51 H Creatinine 6.5 H Glucose POC Glucose 109 H Calcium ALT Total Protein Albumin PTH Pre-Incision PTH Post-Excision 06/12/17 06/13/17 06/13/17 11:46 04:15 04:55 WBC 17.9 H RBC Hgb Hct POC Hct MCV 75 L MCH 24 L RDW 18.5 H Tift % (Auto) Tift # Seg Neutrophils % Seg Neuts % (Manual) 75.0 H Lymphocytes % (Manual) 6.0 L Monocytes % (Manual) 9.0 H Nucleated RBC % Seg Neutrophils # Seg Neutrophils # Man 13.4 H Lymphocytes # (Manual) 1.1 L Monocytes # (Manual) 1.6 H Eosinophils # (Manual) 0.5 H Basophils # (Manual) 0.2 H POC ABG pH ABG pH POC ABG pCO2 POC ABG pO2 ABG pO2 131.0 H ABG HCO3 ABG O2 Saturation ABG Hemoglobin 10.5 L POC Sodium POC Potassium Sodium Potassium Chloride Carbon Dioxide POC BUN BUN Creatinine Glucose POC Glucose 116 H Calcium ALT Total Protein Albumin PTH Pre-Incision PTH Post-Excision 06/13/17 06/13/17 06/14/17 04:55 17:23 04:30 WBC 17.8 H RBC Hgb 9.7 L Hct POC Hct MCV 76 L MCH 24 L RDW 18.3 H Tift % (Auto) Tift # Seg Neutrophils % Seg Neuts % (Manual) 74.0 H Lymphocytes % (Manual) 6.0 L Monocytes % (Manual) 9.0 H Nucleated RBC % Seg Neutrophils # Seg Neutrophils # Man 13.2 H Lymphocytes # (Manual) 1.1 L Monocytes # (Manual) 1.6 H Eosinophils # (Manual) Basophils # (Manual) POC ABG pH ABG pH POC ABG pCO2 POC ABG pO2 ABG pO2 ABG HCO3 ABG O2 Saturation ABG Hemoglobin POC Sodium POC Potassium Sodium 128 L Potassium Chloride 88.9 L Carbon Dioxide POC BUN BUN 73 H Creatinine 7.6 H Glucose 115 H POC Glucose 113 H Calcium 8.1 L ALT Total Protein Albumin PTH Pre-Incision PTH Post-Excision 06/14/17 06/14/17 06/14/17 04:30 05:30 05:49 WBC RBC Hgb Hct POC Hct MCV MCH RDW Tift % (Auto) Tift # Seg Neutrophils % Seg Neuts % (Manual) Lymphocytes % (Manual) Monocytes % (Manual) Nucleated RBC % Seg Neutrophils # Seg Neutrophils # Man Lymphocytes # (Manual) Monocytes # (Manual) Eosinophils # (Manual) Basophils # (Manual) POC ABG pH ABG pH POC ABG pCO2 POC ABG pO2 ABG pO2 109.3 H ABG HCO3 ABG O2 Saturation ABG Hemoglobin 10.7 L POC Sodium POC Potassium Sodium 124 L Potassium Chloride 84.3 L Carbon Dioxide POC BUN BUN 86 H Creatinine 9.0 H Glucose 106 H POC Glucose 111 H Calcium 8.1 L ALT Total Protein Albumin PTH Pre-Incision PTH Post-Excision 06/14/17 06/14/17 06/14/17 12:27 16:05 23:35 WBC RBC Hgb Hct POC Hct MCV MCH RDW Tift % (Auto) Tift # Seg Neutrophils % Seg Neuts % (Manual) Lymphocytes % (Manual) Monocytes % (Manual) Nucleated RBC % Seg Neutrophils # Seg Neutrophils # Man Lymphocytes # (Manual) Monocytes # (Manual) Eosinophils # (Manual) Basophils # (Manual) POC ABG pH ABG pH POC ABG pCO2 POC ABG pO2 ABG pO2 ABG HCO3 ABG O2 Saturation ABG Hemoglobin POC Sodium POC Potassium Sodium Potassium Chloride Carbon Dioxide POC BUN BUN Creatinine Glucose POC Glucose 139 H 133 H 147 H Calcium ALT Total Protein Albumin PTH Pre-Incision PTH Post-Excision 06/15/17 06/15/17 06/15/17 05:05 06:00 06:00 WBC 21.4 H RBC Hgb 9.2 L Hct POC Hct MCV 77 L MCH 23 L RDW 18.8 H Tift % (Auto) Tift # Seg Neutrophils % Seg Neuts % (Manual) 86.0 H Lymphocytes % (Manual) 2.0 L Monocytes % (Manual) Nucleated RBC % 1.0 H Seg Neutrophils # Seg Neutrophils # Man 18.4 H Lymphocytes # (Manual) 0.4 L Monocytes # (Manual) 1.5 H Eosinophils # (Manual) Basophils # (Manual) POC ABG pH ABG pH POC ABG pCO2 POC ABG pO2 ABG pO2 ABG HCO3 ABG O2 Saturation ABG Hemoglobin POC Sodium POC Potassium Sodium 132 L D Potassium Chloride 91.5 L Carbon Dioxide POC BUN BUN 59 H Creatinine 6.6 H Glucose 116 H POC Glucose 145 H Calcium ALT Total Protein Albumin PTH Pre-Incision PTH Post-Excision 06/15/17 06/15/17 06/15/17 12:04 17:55 23:40 WBC RBC Hgb Hct POC Hct MCV MCH RDW Tift % (Auto) Tift # Seg Neutrophils % Seg Neuts % (Manual) Lymphocytes % (Manual) Monocytes % (Manual) Nucleated RBC % Seg Neutrophils # Seg Neutrophils # Man Lymphocytes # (Manual) Monocytes # (Manual) Eosinophils # (Manual) Basophils # (Manual) POC ABG pH ABG pH POC ABG pCO2 POC ABG pO2 ABG pO2 ABG HCO3 ABG O2 Saturation ABG Hemoglobin POC Sodium POC Potassium Sodium Potassium Chloride Carbon Dioxide POC BUN BUN Creatinine Glucose POC Glucose 109 H 119 H 123 H Calcium ALT Total Protein Albumin PTH Pre-Incision PTH Post-Excision 06/15/17 06/16/17 06/16/17 Unknown 06:00 08:45 WBC 21.9 H RBC Hgb 8.9 L Hct 29.0 L POC Hct MCV 77 L MCH 24 L RDW 18.1 H Tift % (Auto) 11.2 H Tift # 1.6 H Seg Neutrophils % 82.8 H Seg Neuts % (Manual) 78.0 H Lymphocytes % (Manual) 3.0 L Monocytes % (Manual) 9.0 H Nucleated RBC % 1.0 H Seg Neutrophils # 12.2 H Seg Neutrophils # Man 17.1 H Lymphocytes # (Manual) 0.7 L Monocytes # (Manual) 2.0 H Eosinophils # (Manual) Basophils # (Manual) 0.2 H POC ABG pH ABG pH POC ABG pCO2 POC ABG pO2 ABG pO2 115.7 H ABG HCO3 27.6 H ABG O2 Saturation ABG Hemoglobin 9.2 L POC Sodium POC Potassium Sodium Potassium 2.7 L* D Chloride 111.6 H Carbon Dioxide 17 L D POC BUN BUN 52 H Creatinine 5.0 H Glucose POC Glucose Calcium 5.3 L* D ALT Total Protein Albumin PTH Pre-Incision PTH Post-Excision 06/16/17 06/16/17 06/16/17 09:25 11:00 12:07 WBC RBC Hgb Hct POC Hct MCV MCH RDW Tift % (Auto) Tift # Seg Neutrophils % Seg Neuts % (Manual) Lymphocytes % (Manual) Monocytes % (Manual) Nucleated RBC % Seg Neutrophils # Seg Neutrophils # Man Lymphocytes # (Manual) Monocytes # (Manual) Eosinophils # (Manual) Basophils # (Manual) POC ABG pH ABG pH POC ABG pCO2 POC ABG pO2 ABG pO2 102.0 H ABG HCO3 27.1 H ABG O2 Saturation ABG Hemoglobin 9.0 L POC Sodium POC Potassium Sodium Potassium Chloride 95.2 L Carbon Dioxide POC BUN BUN 60 H Creatinine 6.3 H Glucose 114 H POC Glucose 111 H Calcium 10.6 H D ALT Total Protein Albumin PTH Pre-Incision PTH Post-Excision 06/16/17 06/16/17 06/17/17 17:20 17:51 00:10 WBC RBC Hgb Hct POC Hct MCV MCH RDW Tift % (Auto) Tift # Seg Neutrophils % Seg Neuts % (Manual) Lymphocytes % (Manual) Monocytes % (Manual) Nucleated RBC % Seg Neutrophils # Seg Neutrophils # Man Lymphocytes # (Manual) Monocytes # (Manual) Eosinophils # (Manual) Basophils # (Manual) POC ABG pH ABG pH POC ABG pCO2 POC ABG pO2 ABG pO2 ABG HCO3 ABG O2 Saturation ABG Hemoglobin POC Sodium POC Potassium Sodium Potassium Chloride 97.4 L Carbon Dioxide POC BUN BUN 35 H Creatinine 4.4 H Glucose 116 H POC Glucose 128 H 114 H Calcium ALT Total Protein Albumin PTH Pre-Incision PTH Post-Excision 06/17/17 06/17/17 06/18/17 04:00 05:42 08:10 WBC 16.1 H RBC 3.55 L Hgb 8.4 L Hct 27.2 L POC Hct MCV 76 L MCH 24 L RDW 18.5 H Tift % (Auto) Tift # Seg Neutrophils % Seg Neuts % (Manual) Lymphocytes % (Manual) Monocytes % (Manual) Nucleated RBC % Seg Neutrophils # Seg Neutrophils # Man Lymphocytes # (Manual) Monocytes # (Manual) Eosinophils # (Manual) Basophils # (Manual) POC ABG pH ABG pH POC ABG pCO2 POC ABG pO2 ABG pO2 ABG HCO3 ABG O2 Saturation ABG Hemoglobin POC Sodium POC Potassium Sodium 136 L Potassium Chloride 94.5 L Carbon Dioxide POC BUN BUN 44 H Creatinine 5.3 H Glucose 107 H POC Glucose 110 H Calcium ALT Total Protein Albumin PTH Pre-Incision PTH Post-Excision 06/18/17 06/19/17 06/19/17 08:10 05:23 07:14 WBC 19.3 H RBC Hgb 9.2 L Hct 30.1 L POC Hct MCV 77 L MCH 23 L RDW 18.2 H Tift % (Auto) Tift # Seg Neutrophils % Seg Neuts % (Manual) Lymphocytes % (Manual) Monocytes % (Manual) Nucleated RBC % Seg Neutrophils # Seg Neutrophils # Man Lymphocytes # (Manual) Monocytes # (Manual) Eosinophils # (Manual) Basophils # (Manual) POC ABG pH ABG pH POC ABG pCO2 POC ABG pO2 ABG pO2 116.2 H ABG HCO3 28.5 H ABG O2 Saturation ABG Hemoglobin 9.1 L POC Sodium POC Potassium Sodium 134 L Potassium Chloride 91.6 L Carbon Dioxide POC BUN BUN 68 H Creatinine 7.2 H Glucose POC Glucose Calcium 10.3 H ALT 6 L Total Protein 5.9 L Albumin 2.8 L PTH Pre-Incision PTH Post-Excision 06/19/17 07:15 WBC RBC Hgb Hct POC Hct MCV MCH RDW Tift % (Auto) Tift # Seg Neutrophils % Seg Neuts % (Manual) Lymphocytes % (Manual) Monocytes % (Manual) Nucleated RBC % Seg Neutrophils # Seg Neutrophils # Man Lymphocytes # (Manual) Monocytes # (Manual) Eosinophils # (Manual) Basophils # (Manual) POC ABG pH ABG pH POC ABG pCO2 POC ABG pO2 ABG pO2 ABG HCO3 ABG O2 Saturation ABG Hemoglobin POC Sodium POC Potassium Sodium 135 L Potassium Chloride 94.3 L Carbon Dioxide POC BUN BUN 41 H Creatinine 5.4 H Glucose 117 H POC Glucose Calcium 10.3 H ALT Total Protein Albumin PTH Pre-Incision PTH Post-Excision
--- NOTE | 2017-06-19 14:55 | Progress Note ---
Assessment and Plan Impression: * ESRD * Hypertension * s/p Parathyroidectomy * Acute CVA * Acute respiratory failure * Anemia secondary to ESRD * Hyponatremia Plan: * Hemodialysis on Wednesday per surgery request as pt is planned to have trach/PEG Wednesday * Adjust bath to 3k/2.5Ca bath as serum calcium has improved * Continue current calcium supplement * Vent management per critical care * Epogen TIW * Nutrition per primary team * Strict I/O Subjective Date of service: 06/19/17 Principal diagnosis: ARM/MV/Post hyperparathy./ESRD Interval history: No acute events overnight. Objective - Vital Signs Vital signs: Vital Signs - 12hr 06/19/17 06/19/17 06/19/17 03:00 03:21 03:30 Temperature Pulse Rate 66 69 71 Pulse Rate [ From Monitor] Respiratory 14 15 Rate Blood Pressure 126/68 105/66 105/66 O2 Sat by Pulse 99 100 100 Oximetry 06/19/17 06/19/17 06/19/17 03:31 04:00 04:30 Temperature 99.4 F Pulse Rate 69 71 Pulse Rate [ 68 From Monitor] Respiratory 13 17 Rate Blood Pressure 119/63 117/72 O2 Sat by Pulse 100 100 Oximetry 06/19/17 06/19/17 06/19/17 05:00 05:30 06:00 Temperature Pulse Rate 69 69 65 Pulse Rate [ From Monitor] Respiratory 16 15 12 Rate Blood Pressure 115/58 117/58 109/54 O2 Sat by Pulse 98 100 98 Oximetry 06/19/17 06/19/17 06/19/17 06:30 07:00 07:30 Temperature Pulse Rate 65 65 70 Pulse Rate [ From Monitor] Respiratory 12 12 16 Rate Blood Pressure 102/56 98/52 100/51 O2 Sat by Pulse 98 100 98 Oximetry 06/19/17 06/19/17 06/19/17 07:38 07:58 08:00 Temperature 98.2 F Pulse Rate 77 79 78 Pulse Rate [ From Monitor] Respiratory 23 20 Rate Blood Pressure 127/61 124/62 111/54 O2 Sat by Pulse 100 100 98 Oximetry 06/19/17 06/19/17 06/19/17 08:30 09:00 09:30 Temperature Pulse Rate 70 68 70 Pulse Rate [ From Monitor] Respiratory 13 12 17 Rate Blood Pressure 100/52 103/54 105/54 O2 Sat by Pulse 98 99 98 Oximetry 06/19/17 06/19/17 06/19/17 10:00 10:30 11:00 Temperature Pulse Rate 67 64 63 Pulse Rate [ From Monitor] Respiratory 13 13 13 Rate Blood Pressure 92/52 99/52 94/52 O2 Sat by Pulse 98 98 Oximetry 06/19/17 06/19/17 06/19/17 11:30 11:38 12:00 Temperature 98.2 F Pulse Rate 65 66 67 Pulse Rate [ From Monitor] Respiratory 16 15 Rate Blood Pressure 103/55 103/55 100/55 O2 Sat by Pulse 98 100 100 Oximetry 06/19/17 12:30 Temperature Pulse Rate 71 Pulse Rate [ From Monitor] Respiratory 17 Rate Blood Pressure 99/59 O2 Sat by Pulse Oximetry - General Appearance General appearance: well-developed, well-nourished, intubated EENT: ATNC, other (ETT in place) Respiratory: Present: Other (coarse BS) Cardiology: regular, S1S2 Gastrointestinal: normal, no tenderness, no distended, obese Integumentary: no rash, warm and dry Musculoskeletal: other (no edema) - Lab 06/19/17 07:14 06/19/17 07:15 Most recent lab results ABG pH 7.387 pH Units (7.350-7.450) 06/19/17 05:23 ABG pCO2 48.5 mm Hg 06/19/17 05:23 ABG pO2 116.2 mm Hg (80.0-90.0) H 06/19/17 05:23 ABG HCO3 28.5 mmol/L (20.0-26.0) H 06/19/17 05:23 ABG O2 Saturation 98.1 % (95.0-99.0) 06/19/17 05:23 Calcium 10.3 mg/dL (8.4-10.2) H 06/19/17 07:15 Phosphorus 4.50 mg/dL (2.5-4.5) 06/06/17 07:13 Magnesium 1.90 mg/dL (1.7-2.3) 06/16/17 11:00
--- NOTE | 2017-06-19 19:48 | Progress Note ---
Assessment and Plan Assessment and plan: 66-year-old female patient significant past medical history of hypertension and obstructive sleep apnea, ESRD on hemodialysis, breast cancer status post mastectomy underwent elective total parathyroidectomy and was admitted to ICU with respiratory failure requiring intubation, she unfortunately a stroke Acute left MCA stroke with right-sided weakness - Neurology consult appreciated -MR brain showed large left MCA acute infarct - on aspirin and statin - Cardiology consulted to rule out cardiac cause of stroke - Vascular surgery consulted no intervention needed -received mannitol for IC edema Acute hypoxic respiratory failure on MV > 96 hours - re-intubated, continue vent and planned for trache Metabolic Enchephalopathy -due to CVA and IC edema, imrpoving -continue mannitol Status post subtotal parathyroidectomy/Hypocalcemia - Continue postop care per surgery - continue to replete calcium as needed End-stage renal disease on hemodialysis - Continue hemodialysis as scheduled per nephrology Hyperkalemia -improved with HD Hypertension - Continue When necessary medication History of breast cancer status post mastectomy - Stable Morbid obesity with BMI of 47.8, - Nutrition input appreciated Moderate malnutrition -continue tube feeds Hyponatremia -reduced free water via G tube, and received NS, now improved Hypotension resolved with IVF bolus The high probability of a clinically significant, sudden or life threatening deterioration of the [respiratory] system(s) required my full and direct attention, intervention and personal management. The aggregate critical care time was [32] minutes. This time is in addition to time spent performing reported procedures but includes the following: [x] Data Review and interpretation [x] Patient assessment and monitoring of vital signs [x] Documentation [x] Medication orders and managementPatient would benefit by outpatient bariatric surgical evaluation for weight reduction program and medically stable CODE STATUS FULL History Interval history: Mentation is somewhat improved, she is more responsive remains intubated Hospitalist Physical - Physical exam Narrative exam: General.: Appears well, no distress, nontoxic HEENT: Moist mucous membranes, extraocular muscles intact, no lymphadenopathy Neck: supple Cardiac: S1-S2 heard Lungs: clear to auscultation bilaterally Abdomen: soft , nontender, nondistended, bowel sounds positive Extremities: no edema clubbing or cyanosis Skin: no rash or lesions Neurologic: Intubated, Patient is only moving left side of her body responds to painful stimuli, right side is not moving. does not obey commands Psych: appropriate behavior, appropriate mood, corporative, judgment intact - Constitutional Vitals: Temp Pulse Resp BP Pulse Ox 101.1 F H 99 H 19 128/59 98 06/19/17 19:10 06/19/17 19:01 06/19/17 18:30 06/19/17 19:01 06/19/17 19:01 General appearance: Present: no acute distress, other (withdrawn, nonverbal) Results - Labs CBC & Chem 7: 06/19/17 07:14 06/19/17 07:15 Labs: Laboratory Last Values WBC 19.3 K/mm3 (4.5-11.0) H 06/19/17 07:14 RBC 3.93 M/mm3 (3.65-5.03) 06/19/17 07:14 Hgb 9.2 gm/dl (10.1-14.3) L 06/19/17 07:14 POC Hgb 14.3 (12-17) 06/04/17 16:22 Hct 30.1 % (30.3-42.9) L 06/19/17 07:14 POC Hct 42 (38-51) 06/04/17 16:22 MCV 77 fl (79-97) L 06/19/17 07:14 MCH 23 pg (28-32) L 06/19/17 07:14 MCHC 30 % (30-34) 06/19/17 07:14 RDW 18.2 % (13.2-15.2) H 06/19/17 07:14 Plt Count 258 K/mm3 (140-440) 06/19/17 07:14 [place] % (Auto) 11.2 % (0.0-7.3) H 06/16/17 08:45 Eos % (Auto) 1.4 % (0.0-4.3) 06/16/17 08:45 [place] # 1.6 K/mm3 (0.0-0.8) H 06/16/17 08:45 Eos # 0.2 K/mm3 (0.0-0.4) 06/16/17 08:45 Baso # 0.1 K/mm3 (0.0-0.1) 06/16/17 08:45 Add Manual Diff Complete 06/16/17 08:45 Total Counted 100 06/16/17 08:45 Seg Neutrophils % 82.8 % (40.0-70.0) H 06/16/17 08:45 Seg Neuts % (Manual) 78.0 % (40.0-70.0) H 06/16/17 08:45 Band Neutrophils % 1.0 % 06/16/17 08:45 Lymphocytes % (Manual) 3.0 % (13.4-35.0) L 06/16/17 08:45 Reactive Lymphs % (Man) 0 % 06/16/17 08:45 Monocytes % (Manual) 9.0 % (0.0-7.3) H 06/16/17 08:45 Eosinophils % (Manual) 2.0 % (0.0-4.3) 06/16/17 08:45 Basophils % (Manual) 1.0 % (0.0-1.8) 06/16/17 08:45 Metamyelocytes % 6.0 % 06/16/17 08:45 Myelocytes % 0 % 06/16/17 08:45 Promyelocytes % 0 % 06/16/17 08:45 Blast Cells % 0 % 06/16/17 08:45 Nucleated RBC % 1.0 % (0.0-0.9) H 06/16/17 08:45 Seg Neutrophils # 12.2 K/mm3 (1.8-7.7) H 06/16/17 08:45 Seg Neutrophils # Man 17.1 K/mm3 (1.8-7.7) H 06/16/17 08:45 Band Neutrophils # 0.2 K/mm3 06/16/17 08:45 Lymphocytes # (Manual) 0.7 K/mm3 (1.2-5.4) L 06/16/17 08:45 Abs React Lymphs (Man) 0.0 K/mm3 06/16/17 08:45 Monocytes # (Manual) 2.0 K/mm3 (0.0-0.8) H 06/16/17 08:45 Eosinophils # (Manual) 0.4 K/mm3 (0.0-0.4) 06/16/17 08:45 Basophils # (Manual) 0.2 K/mm3 (0.0-0.1) H 06/16/17 08:45 Metamyelocytes # 1.3 K/mm3 06/16/17 08:45 Myelocytes # 0.0 K/mm3 06/16/17 08:45 Promyelocytes # 0.0 K/mm3 06/16/17 08:45 Blast Cells # 0.0 K/mm3 06/16/17 08:45 WBC Morphology Not Reportable 06/16/17 08:45 Hypersegmented Neuts Not Reportable 06/16/17 08:45 Hyposegmented Neuts Not Reportable 06/16/17 08:45 Hypogranular Neuts Not Reportable 06/16/17 08:45 Smudge Cells Not Reportable 06/16/17 08:45 Toxic Granulation Not Reportable 06/16/17 08:45 Toxic Vacuolation Not Reportable 06/16/17 08:45 Dohle Bodies Not Reportable 06/16/17 08:45 Pelger-Huet Anomaly Not Reportable 06/16/17 08:45 Sunita Rods Not Reportable 06/16/17 08:45 Platelet Estimate Cons 06/16/17 08:45 Clumped Platelets Not Reportable 06/16/17 08:45 Plt Clumps, EDTA Not Reportable 06/16/17 08:45 Large Platelets Not Reportable 06/16/17 08:45 Giant Platelets Not Reportable 06/16/17 08:45 Platelet Satelliting Not Reportable 06/16/17 08:45 Plt Morphology Comment Not Reportable 06/16/17 08:45 RBC Morphology Not Reportable 06/16/17 08:45 Dimorphic RBCs Not Reportable 06/16/17 08:45 Polychromasia Not Reportable 06/16/17 08:45 Hypochromasia 2+ 06/16/17 08:45 Poikilocytosis Not Reportable 06/16/17 08:45 Anisocytosis Not Reportable 06/16/17 08:45 Microcytosis 1+ 06/16/17 08:45 Macrocytosis Not Reportable 06/16/17 08:45 Spherocytes Not Reportable 06/16/17 08:45 Pappenheimer Bodies Not Reportable 06/16/17 08:45 Sickle Cells Not Reportable 06/16/17 08:45 Target Cells Not Reportable 06/16/17 08:45 Tear Drop Cells Few 06/16/17 08:45 Ovalocytes Not Reportable 06/16/17 08:45 Helmet Cells Not Reportable 06/16/17 08:45 Rmaos-[place] Bodies Not Reportable 06/16/17 08:45 [place] Rings Not Reportable 06/16/17 08:[address] [place] [address] [place] Cells Not Reportable 06/16/17 08:45 Bite Cells Not Reportable 06/16/17 08:45 Crenated Cell Not Reportable 06/16/17 08:45 Elliptocytes Not Reportable 06/16/17 08:45 Acanthocytes (Spur) Not Reportable 06/16/17 08:45 Rouleaux Not Reportable 06/16/17 08:45 Hemoglobin C Crystals Not Reportable 06/16/17 08:45 Schistocytes Few 06/16/17 08:45 Malaria parasites Not Reportable 06/16/17 08:45 Williams Bodies Not Reportable 06/16/17 08:45 Hem Pathologist Commnt No 06/16/17 08:45 PT 13.5 Sec. (12.2-14.9) 06/09/17 16:55 INR 0.98 (0.87-1.13) 06/09/17 16:55 APTT 29.9 Sec. (24.2-36.6) 06/09/17 16:55 POC ABG pH 7.556 (7.35-7.45) H 06/11/17 06:51 ABG pH 7.387 pH Units (7.350-7.450) 06/19/17 05:23 POC ABG pCO2 34.8 (35-45) L 06/11/17 06:51 ABG pCO2 48.5 mm Hg 06/19/17 05:23 POC ABG pO2 125 (80-105) H 06/11/17 06:51 ABG pO2 116.2 mm Hg (80.0-90.0) H 06/19/17 05:23 POC ABG HCO3 30.9 06/11/17 06:51 ABG HCO3 28.5 mmol/L (20.0-26.0) H 06/19/17 05:23 POC ABG Total CO2 32 06/11/17 06:51 POC ABG O2 Sat 99 06/11/17 06:51 ABG O2 Saturation 98.1 % (95.0-99.0) 06/19/17 05:23 ABG O2 Content 12.6 (0.0-44) 06/19/17 05:23 POC ABG Base Excess 9 06/11/17 06:51 ABG Base Excess 3.0 mmol/L (-2.0-3.0) 06/19/17 05:23 ABG Hemoglobin 9.1 gm/dl (12.0-16.0) L 06/19/17 05:23 ABG Carboxyhemoglobin 1.6 % (0.0-5.0) 06/19/17 05:23 ABG Methemoglobin 0.3 % (0.0-1.5) 06/19/17 05:23 Oxyhemoglobin 96.3 % (95.0-99.0) 06/19/17 05:23 POC Sodium 137 mmol/L (138-146) L 06/04/17 16:22 POC Potassium 5.3 (3.5-4.9) H 06/04/17 16:22 POC Chloride 102 (98-109) 06/04/17 16:22 FiO2 35 % 06/19/17 05:23 Sodium 135 mmol/L (137-145) L 06/19/17 07:15 Potassium 4.2 mmol/L (3.6-5.0) 06/19/17 07:15 Chloride 94.3 mmol/L (98-107) L 06/19/17 07:15 Carbon Dioxide 27 mmol/L (22-30) 06/19/17 07:15 Anion Gap 18 mmol/L 06/19/17 07:15 POC BUN 45 mg/dl (8-26) H 06/04/17 16:22 BUN 41 mg/dL (7-17) H 06/19/17 07:15 Creatinine 5.4 mg/dL (0.7-1.2) H 06/19/17 07:15 Estimated GFR 10 ml/min 06/19/17 07:15 BUN/Creatinine Ratio 8 % 06/19/17 07:15 Glucose 117 mg/dL (65-100) H 06/19/17 07:15 POC Glucose 102 (70-105) 06/19/17 04:56 Osmolality 312 Mosm/kg 06/14/17 09:25 Calcium 10.3 mg/dL (8.4-10.2) H 06/19/17 07:15 Phosphorus 4.50 mg/dL (2.5-4.5) 06/06/17 07:13 Magnesium 1.90 mg/dL (1.7-2.3) 06/16/17 11:00 Total Bilirubin 0.40 mg/dL (0.1-1.2) 06/18/17 08:10 AST 14 units/L (5-40) 06/18/17 08:10 ALT 6 units/L (7-56) L 06/18/17 08:10 Alkaline Phosphatase 92 units/L (35-129) 06/18/17 08:10 Total Protein 5.9 g/dL (6.3-8.2) L 06/18/17 08:10 Albumin 2.8 g/dL (3.9-5) L 06/18/17 08:10 Albumin/Globulin Ratio 0.9 % 06/18/17 08:10 Triglycerides 132 mg/dL (2-149) 06/09/17 11:49 Cholesterol 171 mg/dL (50-199) 06/09/17 11:49 LDL Cholesterol Direct 95 mg/dL (50-130) 06/09/17 11:49 HDL Cholesterol 50 mg/dL (40-59) 06/09/17 11:49 Cholesterol/HDL Ratio 3.42 % 06/09/17 11:49 PTH Pre-Incision 641.9 (11.1-79.5) H 06/04/17 13:55 PTH Post-Excision 154.7 (11.1-79.5) H 06/04/17 13:55 PTH Intact Intraop 5 m Not Reportable 06/04/17 13:55
[2017-06-19] MEDS ORDERED: VANCOMYCIN 2,000 MG in NACL 0.9% 500 ML 500 ML IV ONE (21:00)
[2017-06-19] MEDS ORDERED: VANCOMYCIN/NS 1 GM/250 ML 1 GM/250 ML BAG IV ONE (21:00)
[2017-06-19] MEDS: ZOSYN/NS 2.25 GM/50ML 2.25 GM/50 ML BAG IV SCH (22:08)
[2017-06-20] MEDS: ZOSYN/NS 2.25 GM/50ML 2.25 GM/50 ML BAG IV SCH ×3 (05:41→21:19)
[2017-06-20] MEDS: PROAMATINE PO SCH ×3 (05:41→21:17)
--- NOTE | 2017-06-20 09:08 | XRay Report ---
AP CHEST :06/19/17 CLINICAL: Intubated.Follow up respiratory failure. COMPARISON:06/18/17 FINDINGS: The endotracheal tube is in satisfactory position. The feeding tube is satisfactory. Left [id number] tip is in the left brachycephalic vein and is unchanged. The pulmonary vessels are slightly more distinct in the lungs are better aerated. No pneumothorax. IMPRESSION: Slight improvement with decrease pulmonary venous hypertension and better aeration of the lungs.
[2017-06-20] MEDS: PEPCID PO SCH (10:27)
[2017-06-20] MEDS: BABY ASPIRIN PO SCH (10:27)
[2017-06-20] MEDS: ROCALTROL PO SCH (10:27)
[2017-06-20] MEDS: HEPARIN SUB-Q SCH ×2 (10:28→21:17)
[2017-06-20] MEDS: TUMS PO SCH ×3 (10:30→21:17)
[2017-06-20] MEDS ORDERED: NACL 0.9% 100 ML IV PRN ×2 (12:40→12:45)
--- NOTE | 2017-06-20 13:01 | Progress Note ---
Assessment and Plan Impression: * ESRD * Hypertension * s/p Parathyroidectomy * Acute CVA * Acute respiratory failure * Anemia secondary to ESRD * Hyponatremia Plan: * Hemodialysis on Wednesday per surgery request as pt is planned to have trach/PEG Wednesday * Resume MWF on Wednesday * Adjust bath to 3k/2.5Ca bath as serum calcium has improved * Continue current calcium supplement * Vent management per critical care * Epogen TIW * Nutrition per primary team * Strict I/O Subjective Date of service: 06/20/17 Principal diagnosis: ARM/MV/Post hyperparathy./ESRD Interval history: No acute events overnight. Objective - Vital Signs Vital signs: Vital Signs - 12hr 06/20/17 06/20/17 06/20/17 01:30 02:00 02:30 Temperature Pulse Rate 72 68 67 Pulse Rate [ From Monitor] Pulse Rate [ Left Dorsalis Pedis] Respiratory 17 19 15 Rate Blood Pressure 111/38 107/39 107/39 O2 Sat by Pulse 97 97 97 Oximetry 06/20/17 06/20/17 06/20/17 03:00 03:30 03:50 Temperature 98.7 F Pulse Rate 68 64 Pulse Rate [ From Monitor] Pulse Rate [ Left Dorsalis Pedis] Respiratory 21 27 H Rate Blood Pressure 120/46 120/46 O2 Sat by Pulse 97 95 Oximetry 06/20/17 06/20/17 06/20/17 04:00 04:30 05:00 Temperature Pulse Rate 64 65 64 Pulse Rate [ 64 From Monitor] Pulse Rate [ 3 L Left Dorsalis Pedis] Respiratory 22 16 22 Rate Blood Pressure 117/45 117/45 114/44 O2 Sat by Pulse 98 98 97 Oximetry 06/20/17 06/20/17 06/20/17 05:30 06:00 06:27 Temperature Pulse Rate 64 67 67 Pulse Rate [ From Monitor] Pulse Rate [ Left Dorsalis Pedis] Respiratory 18 18 Rate Blood Pressure 114/44 135/52 135/52 O2 Sat by Pulse 99 98 98 Oximetry 06/20/17 06/20/17 06/20/17 06:30 07:00 07:30 Temperature Pulse Rate 66 68 67 Pulse Rate [ From Monitor] Pulse Rate [ Left Dorsalis Pedis] Respiratory 18 23 18 Rate Blood Pressure 135/52 135/52 133/49 O2 Sat by Pulse 98 100 99 Oximetry 06/20/17 06/20/1706/20/17 08:00 08:40 09:00 Temperature 98.7 F Pulse Rate 65 65 Pulse Rate [ 66 From Monitor] Pulse Rate [ Left Dorsalis Pedis] Respiratory 23 17 Rate Blood Pressure 123/49 128/51 O2 Sat by Pulse 97 98 97 Oximetry 06/20/17 06/20/17 06/20/17 10:00 10:39 11:00 Temperature Pulse Rate 66 63 66 Pulse Rate [ From Monitor] Pulse Rate [ Left Dorsalis Pedis] Respiratory 22 25 H Rate Blood Pressure 131/47 131/47 132/52 O2 Sat by Pulse 98 98 99 Oximetry 06/20/17 12:00 Temperature 98.4 F Pulse Rate 62 Pulse Rate [ From Monitor] Pulse Rate [ Left Dorsalis Pedis] Respiratory 23 Rate Blood Pressure 117/47 O2 Sat by Pulse 97 Oximetry - General Appearance General appearance: intubated EENT: ATNC, other (ETT in place) Respiratory: Present: Clear to Ascultation Cardiology: regular, S1S2 Gastrointestinal: normal, no tenderness, no distended Integumentary: no rash Musculoskeletal: other (+edema) - Lab 06/19/17 07:14 06/19/17 07:15 Most recent lab results ABG pH 7.387 pH Units (7.350-7.450) 06/19/17 05:23 ABG pCO2 48.5 mm Hg 06/19/17 05:23 ABG pO2 116.2 mm Hg (80.0-90.0) H 06/19/17 05:23 ABG HCO3 28.5 mmol/L (20.0-26.0) H 06/19/17 05:23 ABG O2 Saturation 98.1 % (95.0-99.0) 06/19/17 05:23 Calcium 10.3 mg/dL (8.4-10.2) H 06/19/17 07:15 Phosphorus 4.50 mg/dL (2.5-4.5) 06/06/17 07:13 Magnesium 1.90 mg/dL (1.7-2.3) 06/16/17 11:00
--- NOTE | 2017-06-20 13:35 | Progress Note ---
Assessment and Plan 66 y/o female with post-op respiratory failure, likely from pulmonary edema and possible airway edema with end stage renal disease. No new recs for today. 1. Trach scheduled for Wednesday, possible peg 2. HD per renal 3. No sedation, continue to leave off 4. Follow up Neurology recs, none since 06/12 5. Overall prognosis is guarded to poor 6. Continue PSV trials as tolerated. 7. Will need ltach once trached and pegged CCT 31 minutes. Subjective Date of service: 06/20/17 Principal diagnosis: ARM/MV/Post hyperparathy./ESRD Interval history: No acute events. Awaiting trach. Son not at bedside so I have not have a change to speak with the son about PEG. Objective Vital Signs - 12hr 06/20/17 06/20/17 06/20/17 02:00 02:30 03:00 Temperature Pulse Rate 68 67 68 Pulse Rate [ From Monitor] Pulse Rate [ Left Dorsalis Pedis] Respiratory 19 15 21 Rate Blood Pressure 107/39 107/39 120/46 O2 Sat by Pulse 97 97 97 Oximetry 06/20/17 06/20/17 06/20/17 03:30 03:50 04:00 Temperature 98.7 F Pulse Rate 64 64 Pulse Rate [ 64 From Monitor] Pulse Rate [ 3 L Left Dorsalis Pedis] Respiratory 27 H 22 Rate Blood Pressure 120/46 117/45 O2 Sat by Pulse 95 98 Oximetry 06/20/17 06/20/17 06/20/17 04:30 05:00 05:30 Temperature Pulse Rate 65 64 64 Pulse Rate [ From Monitor] Pulse Rate [ Left Dorsalis Pedis] Respiratory 16 22 18 Rate Blood Pressure 117/45 114/44 114/44 O2 Sat by Pulse 98 97 99 Oximetry 06/20/17 06/20/17 06/20/17 06:00 06:27 06:30 Temperature Pulse Rate 67 67 66 Pulse Rate [ From Monitor] Pulse Rate [ Left Dorsalis Pedis] Respiratory 18 18 Rate Blood Pressure 135/52 135/52 135/52 O2 Sat by Pulse 98 98 98 Oximetry 06/20/17 06/20/17 06/20/17 07:00 07:30 08:00 Temperature 98.7 F Pulse Rate 68 67 65 Pulse Rate [ 66 From Monitor] Pulse Rate [ Left Dorsalis Pedis] Respiratory 23 18 23 Rate Blood Pressure 135/52 133/49 123/49 O2 Sat by Pulse 100 99 97 Oximetry 06/20/17 06/20/17 06/20/17 08:40 09:00 10:00 Temperature Pulse Rate 65 66 Pulse Rate [ From Monitor] Pulse Rate [ Left Dorsalis Pedis] Respiratory 17 22 Rate Blood Pressure 128/51 131/47 O2 Sat by Pulse 98 97 98 Oximetry 06/20/17 06/20/17 06/20/17 10:39 11:00 12:00 Temperature 98.4 F Pulse Rate 63 66 62 Pulse Rate [ From Monitor] Pulse Rate [ Left Dorsalis Pedis] Respiratory 25 H 23 Rate Blood Pressure 131/47 132/52 117/47 O2 Sat by Pulse 98 99 97 Oximetry Constitutional: no acute distress, other (intubated, some response to tactile stimulation otherwise nonresponsive) Eyes: non-icteric ENT: other (orally intubated) Neck: supple, no JVD, other (no stridor) Effort: normal Ascultation: Bilateral: clear, diminished breath sounds, rales, other (coarse BS bilaterally) Percussion: Bilateral: not dull Cardiovascular: regular rate and rhythm Gastrointestinal: normoactive bowel sounds, soft, non-tender, non-distended, other (obese) Integumentary: normal Extremities: no cyanosis, no edema, pink and warm, edema Neurologic: other (altered mentation, R-hemiparesis,GCS 3-4) Psychiatric: mood appropriate, affect normal CBC and BMP: 06/19/17 07:14 06/19/17 07:15 ABG, PT/INR, D-dimer: ABG POC ABG pH 7.556 (7.35-7.45) H 06/11/17 06:51 ABG pH 7.387 pH Units (7.350-7.450) 06/19/17 05:23 POC ABG pCO2 34.8 (35-45) L 06/11/17 06:51 ABG pCO2 48.5 mm Hg 06/19/17 05:23 POC ABG pO2 125 (80-105) H 06/11/17 06:51 ABG pO2 116.2 mm Hg (80.0-90.0) H 06/19/17 05:23 POC ABG HCO3 30.9 06/11/17 06:51 POC ABG Total CO2 32 10/06/17 06:51 POC ABG O2 Sat 99 06/11/17 06:51 ABG O2 Saturation 98.1 % (95.0-99.0) 06/19/17 05:23 PT/INR, D-dimer PT 13.5 Sec. (12.2-14.9) 06/09/17 16:55 INR 0.98 (0.87-1.13) 06/09/17 16:55 Abnormal lab findings: Abnormal Labs 06/04/17 06/04/17 06/04/17 00:01 12:50 13:55 WBC 11.4 H RBC Hgb Hct POC Hct MCV 76 L MCH 23 L RDW 18.5 H [place] % (Auto) [place] # Seg Neutrophils % Seg Neuts % (Manual) 89.0 H Lymphocytes % (Manual) 6.0 L Monocytes % (Manual) Nucleated RBC % Seg Neutrophils # Seg Neutrophils # Man 10.1 H Lymphocytes # (Manual) 0.7 L Monocytes # (Manual) Eosinophils # (Manual) Basophils # (Manual) POC ABG pH ABG pH POC ABG pCO2 POC ABG pO2 ABG pO2 ABG HCO3 ABG O2 Saturation ABG Hemoglobin POC Sodium POC Potassium Sodium Potassium 5.1 H 5.2 H Chloride Carbon Dioxide POC BUN BUN 48 H Creatinine 6.2 H Glucose POC Glucose Calcium ALT Total Protein Albumin PTH Pre-Incision PTH Post-Excision 06/04/17 06/04/17 06/04/17 13:55 16:10 16:16 WBC RBC Hgb Hct POC Hct 37 L MCV MCH RDW [place] % (Auto) [place] # Seg Neutrophils % Seg Neuts % (Manual) Lymphocytes % (Manual) Monocytes % (Manual) Nucleated RBC % Seg Neutrophils # Seg Neutrophils # Man Lymphocytes # (Manual) Monocytes # (Manual) Eosinophils # (Manual) Basophils # (Manual) POC ABG pH 7.306 L ABG pH POC ABG pCO2 58.7 H POC ABG pO2 338 H ABG pO2 ABG HCO3 ABG O2 Saturation ABG Hemoglobin POC Sodium 135 L POC Potassium 5.2 H Sodium Potassium Chloride Carbon Dioxide POC BUN 44 H BUN Creatinine Glucose POC Glucose 183 H Calcium ALT Total Protein Albumin PTH Pre-Incision 641.9 H PTH Post-Excision 154.7 H 06/04/17 06/04/17 06/04/17 16:22 20:44 21:29 WBC RBC Hgb Hct POC Hct MCV MCH RDW [place] % (Auto) [place] # Seg Neutrophils % Seg Neuts % (Manual) Lymphocytes % (Manual) Monocytes % (Manual) Nucleated RBC % Seg Neutrophils # Seg Neutrophils # Man Lymphocytes # (Manual) Monocytes # (Manual) Eosinophils # (Manual) Basophils # (Manual) POC ABG pH 7.484 H ABG pH POC ABG pCO2 POC ABG pO2 ABG pO2 ABG HCO3 ABG O2 Saturation ABG Hemoglobin POC Sodium 137 L POC Potassium 5.3 H Sodium Potassium 5.2 H Chloride Carbon Dioxide POC BUN 45 H BUN 51 H Creatinine 6.5 H Glucose 119 H POC Glucose 176 H Calcium ALT Total Protein Albumin PTH Pre-Incision PTH Post-Excision 06/05/17 06/05/17 06/05/17 03:31 11:44 11:44 WBC 13.4 H RBC Hgb Hct POC Hct MCV 75 L MCH 23 L RDW 18.2 H [place] % (Auto) [place] # Seg Neutrophils % Seg Neuts % (Manual) Lymphocytes % (Manual) Monocytes % (Manual) Nucleated RBC % Seg Neutrophils # Seg Neutrophils # Man Lymphocytes # (Manual) Monocytes # (Manual) Eosinophils # (Manual) Basophils # (Manual) POC ABG pH ABG pH POC ABG pCO2 POC ABG pO2 75 L ABG pO2 ABG HCO3 ABG O2 Saturation ABG Hemoglobin POC Sodium POC Potassium Sodium Potassium 5.8 H Chloride Carbon Dioxide POC BUN BUN 56 H Creatinine 7.0 H Glucose 111 H POC Glucose Calcium 8.2 L ALT Total Protein 6.2 L Albumin 3.1 L PTH Pre-Incision PTH Post-Excision 06/06/17 06/06/17 06/07/17 05:07 07:13 03:53 WBC RBC Hgb Hct POC Hct MCV MCH RDW [place] % (Auto) [place] # Seg Neutrophils % Seg Neuts % (Manual) Lymphocytes % (Manual) Monocytes % (Manual) Nucleated RBC % Seg Neutrophils # Seg Neutrophils # Man Lymphocytes # (Manual) Monocytes # (Manual) Eosinophils # (Manual) Basophils # (Manual) POC ABG pH ABG pH POC ABG pCO2 POC ABG pO2 116 H 137 H ABG pO2 ABG HCO3 ABG O2 Saturation ABG Hemoglobin POC Sodium POC Potassium Sodium Potassium Chloride Carbon Dioxide POC BUN BUN 32 H Creatinine 4.9 H Glucose 115 H POC Glucose Calcium 7.9 L ALT Total Protein 5.7 L Albumin 3.3 L PTH Pre-Incision PTH Post-Excision 06/07/17 06/07/17 06/07/17 05:21 05:21 16:54 WBC RBC Hgb Hct POC Hct MCV 75 L MCH 24 L RDW 18.7 H [place] % (Auto) [place] # Seg Neutrophils % Seg Neuts % (Manual) Lymphocytes % (Manual) Monocytes % (Manual) Nucleated RBC % Seg Neutrophils # Seg Neutrophils # Man Lymphocytes # (Manual) Monocytes # (Manual) Eosinophils # (Manual) Basophils # (Manual) POC ABG pH ABG pH POC ABG pCO2 POC ABG pO2 ABG pO2 ABG HCO3 ABG O2 Saturation ABG Hemoglobin POC Sodium POC Potassium Sodium Potassium 5.4 H Chloride Carbon Dioxide POC BUN BUN 52 H Creatinine 6.2 H Glucose 107 H POC Glucose 110 H Calcium 8.0 L ALT Total Protein Albumin PTH Pre-Incision PTH Post-Excision 06/07/17 06/07/17 06/08/17 17:38 23:32 04:00 WBC RBC Hgb Hct POC Hct MCV 77 L MCH 23 L RDW 18.3 H [place] % (Auto) [place] # Seg Neutrophils % Seg Neuts % (Manual) 78.0 H Lymphocytes % (Manual) Monocytes % (Manual) Nucleated RBC % 3.0 H Seg Neutrophils # Seg Neutrophils # Man 7.8 H Lymphocytes # (Manual) Monocytes # (Manual) Eosinophils # (Manual) Basophils # (Manual) POC ABG pH 7.310 L ABG pH POC ABG pCO2 51.9 H POC ABG pO2 ABG pO2 ABG HCO3 ABG O2 Saturation ABG Hemoglobin POC Sodium POC Potassium Sodium Potassium Chloride Carbon Dioxide POC BUN BUN Creatinine Glucose POC Glucose 63 L Calcium ALT Total Protein Albumin PTH Pre-Incision PTH Post-Excision 06/08/17 06/08/17 06/08/17 04:00 10:51 11:25 WBC RBC Hgb Hct POC Hct MCV MCH RDW [place] % (Auto) [place] # Seg Neutrophils % Seg Neuts % (Manual) Lymphocytes % (Manual) Monocytes % (Manual) Nucleated RBC % Seg Neutrophils # Seg Neutrophils # Man Lymphocytes # (Manual) Monocytes # (Manual) Eosinophils # (Manual) Basophils # (Manual) POC ABG pH 7.336 L ABG pH POC ABG pCO2 55.1 H POC ABG pO2 ABG pO2 ABG HCO3 ABG O2 Saturation ABG Hemoglobin POC Sodium POC Potassium Sodium Potassium Chloride 96.9 L Carbon Dioxide POC BUN BUN 29 H Creatinine 4.6 H Glucose POC Glucose 108 H Calcium 8.3 L ALT Total Protein Albumin PTH Pre-Incision PTH Post-Excision 06/08/17 06/09/17 06/09/17 14:22 11:42 11:42 WBC RBC Hgb Hct POC Hct MCV 76 L MCH 24 L RDW 18.3 H [place] % (Auto) [place] # Seg Neutrophils % Seg Neuts % (Manual) 80.0 H Lymphocytes % (Manual) 10.0 L Monocytes % (Manual) Nucleated RBC % 2.0 H Seg Neutrophils # Seg Neutrophils # Man Lymphocytes # (Manual) 1.0 L Monocytes # (Manual) Eosinophils # (Manual) Basophils # (Manual) POC ABG pH ABG pH POC ABG pCO2 52.8 H POC ABG pO2 77 L ABG pO2 ABG HCO3 ABG O2 Saturation ABG Hemoglobin POC Sodium POC Potassium Sodium Potassium 5.4 H D Chloride 97.1 L Carbon Dioxide POC BUN BUN 58 H Creatinine 6.6 H Glucose POC Glucose Calcium 7.2 L ALT Total Protein Albumin PTH Pre-Incision PTH Post-Excision 06/09/17 06/10/17 06/10/17 12:04 03:29 03:29 WBC 13.7 H RBC Hgb Hct POC Hct MCV 77 L MCH 24 L RDW 17.9 H [place] % (Auto) [place] # Seg Neutrophils % Seg Neuts % (Manual) 82.0 H Lymphocytes % (Manual) 7.0 L Monocytes % (Manual) Nucleated RBC % 6.0 H Seg Neutrophils # Seg Neutrophils # Man 11.2 H Lymphocytes # (Manual) 1.0 L Monocytes # (Manual) Eosinophils # (Manual) Basophils # (Manual) POC ABG pH ABG pH POC ABG pCO2 POC ABG pO2 ABG pO2 ABG HCO3 ABG O2 Saturation ABG Hemoglobin POC Sodium POC Potassium Sodium Potassium Chloride 94.2 L Carbon Dioxide POC BUN BUN 32 H Creatinine 4.6 H Glucose 106 H POC Glucose 106 H Calcium 8.0 L ALT Total Protein Albumin PTH Pre-Incision PTH Post-Excision 06/10/17 06/11/17 06/11/17 05:27 06:00 06:00 WBC 11.8 H RBC Hgb Hct POC Hct MCV 77 L MCH 24 L RDW 18.3 H [place] % (Auto) [place] # Seg Neutrophils % Seg Neuts % (Manual) 88.0 H Lymphocytes % (Manual) 7.0 L Monocytes % (Manual) Nucleated RBC % 1.0 H Seg Neutrophils # Seg Neutrophils # Man 10.4 H Lymphocytes # (Manual) 0.8 L Monocytes # (Manual) Eosinophils # (Manual) Basophils # (Manual) POC ABG pH ABG pH POC ABG pCO2 POC ABG pO2 ABG pO2 ABG HCO3 ABG O2 Saturation ABG Hemoglobin POC Sodium POC Potassium Sodium Potassium Chloride Carbon Dioxide POC BUN BUN 53 H Creatinine 6.0 H Glucose POC Glucose 106 H Calcium 6.3 L D ALT Total Protein Albumin PTH Pre-Incision PTH Post-Excision 06/11/17 06/11/17 06/11/17 06:51 12:10 16:54 WBC RBC Hgb Hct POC Hct MCV MCH RDW [place] % (Auto) [place] # Seg Neutrophils % Seg Neuts % (Manual) Lymphocytes % (Manual) Monocytes % (Manual) Nucleated RBC % Seg Neutrophils # Seg Neutrophils # Man Lymphocytes # (Manual) Monocytes # (Manual) Eosinophils # (Manual) Basophils # (Manual) POC ABG pH 7.556 H ABG pH POC ABG pCO2 34.8 L POC ABG pO2 125 H ABG pO2 ABG HCO3 ABG O2 Saturation ABG Hemoglobin POC Sodium POC Potassium Sodium Potassium Chloride Carbon Dioxide POC BUN BUN Creatinine Glucose POC Glucose 115 H 106 H Calcium ALT Total Protein Albumin PTH Pre-Incision PTH Post-Excision 06/11/17 06/12/17 06/12/17 20:20 00:06 04:20 WBC RBC Hgb Hct POC Hct MCV MCH RDW [place] % (Auto) [place] # Seg Neutrophils % Seg Neuts % (Manual) Lymphocytes % (Manual) Monocytes % (Manual) Nucleated RBC % Seg Neutrophils # Seg Neutrophils # Man Lymphocytes # (Manual) Monocytes # (Manual) Eosinophils # (Manual) Basophils # (Manual) POC ABG pH ABG pH 7.512 H 7.514 H POC ABG pCO2 POC ABG pO2 ABG pO2 148.5 H 209.1 H ABG HCO3 ABG O2 Saturation 99.3 H ABG Hemoglobin POC Sodium POC Potassium Sodium Potassium Chloride Carbon Dioxide POC BUN BUN Creatinine Glucose POC Glucose 108 H Calcium ALT Total Protein Albumin PTH Pre-Incision PTH Post-Excision 06/12/17 06/12/17 06/12/17 05:24 05:30 05:30 WBC 14.3 H RBC Hgb Hct POC Hct MCV 75 L MCH 24 L RDW 18.5 H [place] % (Auto) [place] # Seg Neutrophils % Seg Neuts % (Manual) 73.0 H Lymphocytes % (Manual) 6.0 L Monocytes % (Manual) 9.0 H Nucleated RBC % 1.0 H Seg Neutrophils # Seg Neutrophils # Man 10.4 H Lymphocytes # (Manual) 0.9 L Monocytes # (Manual) 1.3 H Eosinophils # (Manual) Basophils # (Manual) POC ABG pH ABG pH POC ABG pCO2 POC ABG pO2 ABG pO2 ABG HCO3 ABG O2 Saturation ABG Hemoglobin POC Sodium POC Potassium Sodium 131 L D Potassium Chloride 90.6 L Carbon Dioxide POC BUN BUN 51 H Creatinine 6.5 H Glucose POC Glucose 109 H Calcium ALT Total Protein Albumin PTH Pre-Incision PTH Post-Excision 06/12/17 06/13/17 06/13/17 11:46 04:15 04:55 WBC 17.9 H RBC Hgb Hct POC Hct MCV 75 L MCH 24 L RDW 18.5 H [place] % (Auto) [place] # Seg Neutrophils % Seg Neuts % (Manual) 75.0 H Lymphocytes % (Manual) 6.0 L Monocytes % (Manual) 9.0 H Nucleated RBC % Seg Neutrophils # Seg Neutrophils # Man 13.4 H Lymphocytes # (Manual) 1.1 L Monocytes # (Manual) 1.6 H Eosinophils # (Manual) 0.5 H Basophils # (Manual) 0.2 H POC ABG pH ABG pH POC ABG pCO2 POC ABG pO2 ABG pO2 131.0 H ABG HCO3 ABG O2 Saturation ABG Hemoglobin 10.5 L POC Sodium POC Potassium Sodium Potassium Chloride Carbon Dioxide POC BUN BUN Creatinine Glucose POC Glucose 116 H Calcium ALT Total Protein Albumin PTH Pre-Incision PTH Post-Excision 06/13/17 06/13/17 06/14/17 04:55 17:23 04:30 WBC 17.8 H RBC Hgb 9.7 L Hct POC Hct MCV 76 L MCH 24 L RDW 18.3 H [place] % (Auto) [place] # Seg Neutrophils % Seg Neuts % (Manual) 74.0 H Lymphocytes % (Manual) 6.0 L Monocytes % (Manual) 9.0 H Nucleated RBC % Seg Neutrophils # Seg Neutrophils # Man 13.2 H Lymphocytes # (Manual) 1.1 L Monocytes # (Manual) 1.6 H Eosinophils # (Manual) Basophils # (Manual) POC ABG pH ABG pH POC ABG pCO2 POC ABG pO2 ABG pO2 ABG HCO3 ABG O2 Saturation ABG Hemoglobin POC Sodium POC Potassium Sodium 128 L Potassium Chloride 88.9 L Carbon Dioxide POC BUN BUN 73 H Creatinine 7.6 H Glucose 115 H POC Glucose 113 H Calcium 8.1 L ALT Total Protein Albumin PTH Pre-Incision PTH Post-Excision 06/14/17 06/14/17 06/14/17 04:30 05:30 05:49 WBC RBC Hgb Hct POC Hct MCV MCH RDW [place] % (Auto) [place] # Seg Neutrophils % Seg Neuts % (Manual) Lymphocytes % (Manual) Monocytes % (Manual) Nucleated RBC % Seg Neutrophils # Seg Neutrophils # Man Lymphocytes # (Manual) Monocytes # (Manual) Eosinophils # (Manual) Basophils # (Manual) POC ABG pH ABG pH POC ABG pCO2 POC ABG pO2 ABG pO2 109.3 H ABG HCO3 ABG O2 Saturation ABG Hemoglobin 10.7 L POC Sodium POC Potassium Sodium 124 L Potassium Chloride 84.3 L Carbon Dioxide POC BUN BUN 86 H Creatinine 9.0 H Glucose 106 H POC Glucose 111 H Calcium 8.1 L ALT Total Protein Albumin PTH Pre-Incision PTH Post-Excision 06/14/17 06/14/17 06/14/17 12:27 16:05 23:35 WBC RBC Hgb Hct POC Hct MCV MCH RDW [place] % (Auto) [place] # Seg Neutrophils % Seg Neuts % (Manual) Lymphocytes % (Manual) Monocytes % (Manual) Nucleated RBC % Seg Neutrophils # Seg Neutrophils # Man Lymphocytes # (Manual) Monocytes # (Manual) Eosinophils # (Manual) Basophils # (Manual) POC ABG pH ABG pH POC ABG pCO2 POC ABG pO2 ABG pO2 ABG HCO3 ABG O2 Saturation ABG Hemoglobin POC Sodium POC Potassium Sodium Potassium Chloride Carbon Dioxide POC BUN BUN Creatinine Glucose POC Glucose 139 H 133 H 147 H Calcium ALT Total Protein Albumin PTH Pre-Incision PTH Post-Excision 06/15/17 06/15/17 06/15/17 05:05 06:00 06:00 WBC 21.4 H RBC Hgb 9.2 L Hct POC Hct MCV 77 L MCH 23 L RDW 18.8 H [place] % (Auto) [place] # Seg Neutrophils % Seg Neuts % (Manual) 86.0 H Lymphocytes % (Manual) 2.0 L Monocytes % (Manual) Nucleated RBC % 1.0 H Seg Neutrophils # Seg Neutrophils # Man 18.4 H Lymphocytes # (Manual) 0.4 L Monocytes # (Manual) 1.5 H Eosinophils # (Manual) Basophils # (Manual) POC ABG pH ABG pH POC ABG pCO2 POC ABG pO2 ABG pO2 ABG HCO3 ABG O2 Saturation ABG Hemoglobin POC Sodium POC Potassium Sodium 132 L D Potassium Chloride 91.5 L Carbon Dioxide POC BUN BUN 59 H Creatinine 6.6 H Glucose 116 H POC Glucose 145 H Calcium ALT Total Protein Albumin PTH Pre-Incision PTH Post-Excision 06/15/17 06/15/17 06/15/17 12:04 17:55 23:40 WBC RBC Hgb Hct POC Hct MCV MCH RDW [place] % (Auto) [place] # Seg Neutrophils % Seg Neuts % (Manual) Lymphocytes % (Manual) Monocytes % (Manual) Nucleated RBC % Seg Neutrophils # Seg Neutrophils # Man Lymphocytes # (Manual) Monocytes # (Manual) Eosinophils # (Manual) Basophils # (Manual) POC ABG pH ABG pH POC ABG pCO2 POC ABG pO2 ABG pO2 ABG HCO3 ABG O2 Saturation ABG Hemoglobin POC Sodium POC Potassium Sodium Potassium Chloride Carbon Dioxide POC BUN BUN Creatinine Glucose POC Glucose 109 H 119 H 123 H Calcium ALT Total Protein Albumin PTH Pre-Incision PTH Post-Excision 06/15/17 06/16/17 06/16/17 Unknown 06:00 08:45 WBC 21.9 H RBC Hgb 8.9 L Hct 29.0 L POC Hct MCV 77 L MCH 24 L RDW 18.1 H [place] % (Auto) 11.2 H [place] # 1.6 H Seg Neutrophils % 82.8 H Seg Neuts % (Manual) 78.0 H Lymphocytes % (Manual) 3.0 L Monocytes % (Manual) 9.0 H Nucleated RBC % 1.0 H Seg Neutrophils # 12.2 H Seg Neutrophils # Man 17.1 H Lymphocytes # (Manual) 0.7 L Monocytes # (Manual) 2.0 H Eosinophils # (Manual) Basophils # (Manual) 0.2 H POC ABG pH ABG pH POC ABG pCO2 POC ABG pO2 ABG pO2 115.7 H ABG HCO3 27.6 H ABG O2 Saturation ABG Hemoglobin 9.2 L POC Sodium POC Potassium Sodium Potassium 2.7 L* D Chloride 111.6 H Carbon Dioxide 17 L D POC BUN BUN 52 H Creatinine 5.0 H Glucose POC Glucose Calcium 5.3 L* D ALT Total Protein Albumin PTH Pre-Incision PTH Post-Excision 06/16/17 06/16/17 06/16/17 09:25 11:00 12:07 WBC RBC Hgb Hct POC Hct MCV MCH RDW [place] % (Auto) [place] # Seg Neutrophils % Seg Neuts % (Manual) Lymphocytes % (Manual) Monocytes % (Manual) Nucleated RBC % Seg Neutrophils # Seg Neutrophils # Man Lymphocytes # (Manual) Monocytes # (Manual) Eosinophils # (Manual) Basophils # (Manual) POC ABG pH ABG pH POC ABG pCO2 POC ABG pO2 ABG pO2 102.0 H ABG HCO3 27.1 H ABG O2 Saturation ABG Hemoglobin 9.0 L POC Sodium POC Potassium Sodium Potassium Chloride 95.2 L Carbon Dioxide POC BUN BUN 60 H Creatinine 6.3 H Glucose 114 H POC Glucose 111 H Calcium 10.6 H D ALT Total Protein Albumin PTH Pre-Incision PTH Post-Excision 06/16/17 06/16/17 06/17/17 17:20 17:51 00:10 WBC RBC Hgb Hct POC Hct MCV MCH RDW [place] % (Auto) [place] # Seg Neutrophils % Seg Neuts % (Manual) Lymphocytes % (Manual) Monocytes % (Manual) Nucleated RBC % Seg Neutrophils # Seg Neutrophils # Man Lymphocytes # (Manual) Monocytes # (Manual) Eosinophils # (Manual) Basophils # (Manual) POC ABG pH ABG pH POC ABG pCO2 POC ABG pO2 ABG pO2 ABG HCO3 ABG O2 Saturation ABG Hemoglobin POC Sodium POC Potassium Sodium Potassium Chloride 97.4 L Carbon Dioxide POC BUN BUN 35 H Creatinine 4.4 H Glucose 116 H POC Glucose 128 H 114 H Calcium ALT Total Protein Albumin PTH Pre-Incision PTH Post-Excision 06/17/17 06/17/17 06/18/17 04:00 05:42 08:10 WBC 16.1 H RBC 3.55 L Hgb 8.4 L Hct 27.2 L POC Hct MCV 76 L MCH 24 L RDW 18.5 H [place] % (Auto) [place] # Seg Neutrophils % Seg Neuts % (Manual) Lymphocytes % (Manual) Monocytes % (Manual) Nucleated RBC % Seg Neutrophils # Seg Neutrophils # Man Lymphocytes # (Manual) Monocytes # (Manual) Eosinophils # (Manual) Basophils # (Manual) POC ABG pH ABG pH POC ABG pCO2 POC ABG pO2 ABG pO2 ABG HCO3 ABG O2 Saturation ABG Hemoglobin POC Sodium POC Potassium Sodium 136 L Potassium Chloride 94.5 L Carbon Dioxide POC BUN BUN 44 H Creatinine 5.3 H Glucose 107 H POC Glucose 110 H Calcium ALT Total Protein Albumin PTH Pre-Incision PTH Post-Excision 06/18/17 06/19/17 06/19/17 08:10 05:23 07:14 WBC 19.3 H RBC Hgb 9.2 L Hct 30.1 L POC Hct MCV 77 L MCH 23 L RDW 18.2 H [place] % (Auto) [place] # Seg Neutrophils % Seg Neuts % (Manual) Lymphocytes % (Manual) Monocytes % (Manual) Nucleated RBC % Seg Neutrophils # Seg Neutrophils # Man Lymphocytes # (Manual) Monocytes # (Manual) Eosinophils # (Manual) Basophils # (Manual) POC ABG pH ABG pH POC ABG pCO2 POC ABG pO2 ABG pO2 116.2 H ABG HCO3 28.5 H ABG O2 Saturation ABG Hemoglobin 9.1 L POC Sodium POC Potassium Sodium 134 L Potassium Chloride 91.6 L Carbon Dioxide POC BUN BUN 68 H Creatinine 7.2 H Glucose POC Glucose Calcium 10.3 H ALT 6 L Total Protein 5.9 L Albumin 2.8 L PTH Pre-Incision PTH Post-Excision 06/19/17 06/19/17 06/20/17 07:15 23:37 04:40 WBC RBC Hgb Hct POC Hct MCV MCH RDW [place] % (Auto) [place] # Seg Neutrophils % Seg Neuts % (Manual) Lymphocytes % (Manual) Monocytes % (Manual) Nucleated RBC % Seg Neutrophils # Seg Neutrophils # Man Lymphocytes # (Manual) Monocytes # (Manual) Eosinophils # (Manual) Basophils # (Manual) POC ABG pH ABG pH POC ABG pCO2 POC ABG pO2 ABG pO2 ABG HCO3 ABG O2 Saturation ABG Hemoglobin POC Sodium POC Potassium Sodium 135 L Potassium Chloride 94.3 L Carbon Dioxide POC BUN BUN 41 H Creatinine 5.4 H Glucose 117 H POC Glucose 152 H 140 H Calcium 10.3 H ALT Total Protein Albumin PTH Pre-Incision PTH Post-Excision
[2017-06-20] MEDS ORDERED: VANCOMYCIN PHARMACY TO DOSE IV SCH (14:00)
--- NOTE | 2017-06-20 14:05 | Progress Note ---
Assessment and Plan Assessment and plan: 66-year-old female patient significant past medical history of hypertension and obstructive sleep apnea, ESRD on hemodialysis, breast cancer status post mastectomy underwent elective total parathyroidectomy and was admitted to ICU with respiratory failure requiring intubation, she unfortunately a stroke Acute left MCA stroke with right-sided weakness - Neurology consult appreciated -MR brain showed large left MCA acute infarct - on aspirin and statin - Cardiology consulted to rule out cardiac cause of stroke - Vascular surgery consulted no intervention needed -received mannitol for IC edema Acute hypoxic respiratory failure on MV > 96 hours - re-intubated, continue vent and planned for trache Sepsis -may have pna which is obscured by pulmonary edema -Blood cx reviewed by me, growing gram variable rods, obtain tracheal aspirate cx -zosyn and vancomycin, ID consult Metabolic Enchephalopathy -due to CVA and IC edema, imrpoving -continue mannitol Status post subtotal parathyroidectomy/Hypocalcemia - Continue postop care per surgery - continue to replete calcium as needed End-stage renal disease on hemodialysis - Continue hemodialysis as scheduled per nephrology Hyperkalemia -improved with HD Hypertension - Continue When necessary medication History of breast cancer status post mastectomy - Stable Morbid obesity with BMI of 47.8, - Nutrition input appreciated Moderate malnutrition -continue tube feeds Hyponatremia -reduced free water via G tube, and received NS, now improved Hypotension resolved with IVF bolus The high probability of a clinically significant, sudden or life threatening deterioration of the [respiratory] system(s) required my full and direct attention, intervention and personal management. The aggregate critical care time was [32] minutes. This time is in addition to time spent performing reported procedures but includes the following: [x] Data Review and interpretation [x] Patient assessment and monitoring of vital signs [x] Documentation [x] Medication orders and managementPatient would benefit by outpatient bariatric surgical evaluation for weight reduction program and medically stable CODE STATUS FULL History Interval history: Mentation is somewhat improved, she is more responsive remains intubated Hospitalist Physical - Physical exam Narrative exam: General.: Appears well, no distress, nontoxic HEENT: Moist mucous membranes, extraocular muscles intact, no lymphadenopathy Neck: supple Cardiac: S1-S2 heard Lungs: clear to auscultation bilaterally Abdomen: soft , nontender, nondistended, bowel sounds positive Extremities: no edema clubbing or cyanosis Skin: no rash or lesions Neurologic: Intubated, Patient is only moving left side of her body responds to painful stimuli, right side is not moving. does not obey commands Psych: appropriate behavior, appropriate mood, corporative, judgment intact - Constitutional Vitals: Temp Pulse Resp BP Pulse Ox 98.4 F 62 23 117/47 97 06/20/17 12:00 06/20/17 12:00 06/20/17 12:00 06/20/17 12:00 06/20/17 12:00 General appearance: Present: no acute distress, other (withdrawn, nonverbal) Results - Labs CBC & Chem 7: 06/19/17 07:14 06/19/17 07:15 Labs: Laboratory Last Values WBC 19.3 K/mm3 (4.5-11.0) H 06/19/17 07:14 RBC 3.93 M/mm3 (3.65-5.03) 06/19/17 07:14 Hgb 9.2 gm/dl (10.1-14.3) L 06/19/17 07:14 POC Hgb 14.3 (12-17) 06/04/17 16:22 Hct 30.1 % (30.3-42.9) L 06/19/17 07:14 POC Hct 42 (38-51) 06/04/17 16:22 MCV 77 fl (79-97) L 06/19/17 07:14 MCH 23 pg (28-32) L 06/19/17 07:14 MCHC 30 % (30-34) 06/19/17 07:14 RDW 18.2 % (13.2-15.2) H 06/19/17 07:14 Plt Count 258 K/mm3 (140-440) 06/19/17 07:14 Conway % (Auto) 11.2 % (0.0-7.3) H 06/16/17 08:45 Eos % (Auto) 1.4 % (0.0-4.3) 06/16/17 08:45 Conway # 1.6 K/mm3 (0.0-0.8) H 06/16/17 08:45 Eos # 0.2 K/mm3 (0.0-0.4) 06/16/17 08:45 Baso # 0.1 K/mm3 (0.0-0.1) 06/16/17 08:45 Add Manual Diff Complete 06/16/17 08:45 Total Counted 100 06/16/17 08:45 Seg Neutrophils % 82.8 % (40.0-70.0) H 06/16/17 08:45 Seg Neuts % (Manual) 78.0 % (40.0-70.0) H 06/16/17 08:45 Band Neutrophils % 1.0 % 06/16/17 08:45 Lymphocytes % (Manual) 3.0 % (13.4-35.0) L 06/16/17 08:45 Reactive Lymphs % (Man) 0 % 06/16/17 08:45 Monocytes % (Manual) 9.0 % (0.0-7.3) H 06/16/17 08:45 Eosinophils % (Manual) 2.0 % (0.0-4.3) 06/16/17 08:45 Basophils % (Manual) 1.0 % (0.0-1.8) 06/16/17 08:45 Metamyelocytes % 6.0 % 06/16/17 08:45 Myelocytes % 0 % 06/16/17 08:45 Promyelocytes % 0 % 06/16/17 08:45 Blast Cells % 0 % 06/16/17 08:45 Nucleated RBC % 1.0 % (0.0-0.9) H 06/16/17 08:45 Seg Neutrophils # 12.2 K/mm3 (1.8-7.7) H 06/16/17 08:45 Seg Neutrophils # Man 17.1 K/mm3 (1.8-7.7) H 06/16/17 08:45 Band Neutrophils # 0.2 K/mm3 06/16/17 08:45 Lymphocytes # (Manual) 0.7 K/mm3 (1.2-5.4) L 06/16/17 08:45 Abs React Lymphs (Man) 0.0 K/mm3 06/16/17 08:45 Monocytes # (Manual) 2.0 K/mm3 (0.0-0.8) H 06/16/17 08:45 Eosinophils # (Manual) 0.4 K/mm3 (0.0-0.4) 06/16/17 08:45 Basophils # (Manual) 0.2 K/mm3 (0.0-0.1) H 06/16/17 08:45 Metamyelocytes # 1.3 K/mm3 06/16/17 08:45 Myelocytes # 0.0 K/mm3 06/16/17 08:45 Promyelocytes # 0.0 K/mm3 06/16/17 08:45 Blast Cells # 0.0 K/mm3 06/16/17 08:45 WBC Morphology Not Reportable 06/16/17 08:45 Hypersegmented Neuts Not Reportable 06/16/17 08:45 Hyposegmented Neuts Not Reportable 06/16/17 08:45 Hypogranular Neuts Not Reportable 06/16/17 08:45 Smudge Cells Not Reportable 06/16/17 08:45 Toxic Granulation Not Reportable 06/16/17 08:45 Toxic Vacuolation Not Reportable 06/16/17 08:45 Dohle Bodies Not Reportable 06/16/17 08:45 Pelger-Huet Anomaly Not Reportable 06/16/17 08:45 Sunita Rods Not Reportable 06/16/17 08:45 Platelet Estimate Cons 06/16/17 08:45 Clumped Platelets Not Reportable 06/16/17 08:45 Plt Clumps, EDTA Not Reportable 06/16/17 08:45 Large Platelets Not Reportable 06/16/17 08:45 Giant Platelets Not Reportable 06/16/17 08:45 Platelet Satelliting Not Reportable 06/16/17 08:45 Plt Morphology Comment Not Reportable 06/16/17 08:45 RBC Morphology Not Reportable 06/16/17 08:45 Dimorphic RBCs Not Reportable 06/16/17 08:45 Polychromasia Not Reportable 06/16/17 08:45 Hypochromasia 2+ 06/16/17 08:45 Poikilocytosis Not Reportable 06/16/17 08:45 Anisocytosis Not Reportable 06/16/17 08:45 Microcytosis 1+ 06/16/17 08:45 Macrocytosis Not Reportable 06/16/17 08:45 Spherocytes Not Reportable 06/16/17 08:45 Pappenheimer Bodies Not Reportable 06/16/17 08:45 Sickle Cells Not Reportable 06/16/17 08:45 Target Cells Not Reportable 06/16/17 08:45 Tear Drop Cells Few 06/16/17 08:45 Ovalocytes Not Reportable 06/16/17 08:45 Helmet Cells Not Reportable 06/16/17 08:45 Ramos-Evan Bodies Not Reportable 06/16/17 08:45 Linn Rings Not Reportable 06/16/17 08:45 [place] Cells Not Reportable 06/16/17 08:45 Bite Cells Not Reportable 06/16/17 08:45 Crenated Cell Not Reportable 06/16/17 08:45 Elliptocytes Not Reportable 06/16/17 08:45 Acanthocytes (Spur) Not Reportable 06/16/17 08:45 Rouleaux Not Reportable 06/16/17 08:45 Hemoglobin C Crystals Not Reportable 06/16/17 08:45 Schistocytes Few 06/16/17 08:45 Malaria parasites Not Reportable 06/16/17 08:45 Williams Bodies Not Reportable 06/16/17 08:45 Hem Pathologist Commnt No 06/16/17 08:45 PT 13.5 Sec. (12.2-14.9) 06/09/17 16:55 INR 0.98 (0.87-1.13) 06/09/17 16:55 APTT 29.9 Sec. (24.2-36.6) 06/09/17 16:55 POC ABG pH 7.556 (7.35-7.45) H 06/11/17 06:51 ABG pH 7.387 pH Units (7.350-7.450) 06/19/17 05:23 POC ABG pCO2 34.8 (35-45) L 06/11/17 06:51 ABG pCO2 48.5 mm Hg 06/19/17 05:23 POC ABG pO2 125 (80-105) H 06/11/17 06:51 ABG pO2 116.2 mm Hg (80.0-90.0) H 06/19/17 05:23 POC ABG HCO3 30.9 06/11/17 06:51 ABG HCO3 28.5 mmol/L (20.0-26.0) H 06/19/17 05:23 POC ABG Total CO2 32 06/11/17 06:51 POC ABG O2 Sat 99 06/11/17 06:51 ABG O2 Saturation 98.1 % (95.0-99.0) 06/19/17 05:23 ABG O2 Content 12.6 (0.0-44) 06/19/17 05:23 POC ABG Base Excess 9 06/11/17 06:51 ABG Base Excess 3.0 mmol/L (-2.0-3.0) 06/19/17 05:23 ABG Hemoglobin 9.1 gm/dl (12.0-16.0) L 06/19/17 05:23 ABG Carboxyhemoglobin 1.6 % (0.0-5.0) 06/19/17 05:23 ABG Methemoglobin 0.3 % (0.0-1.5) 06/19/17 05:23 Oxyhemoglobin 96.3 % (95.0-99.0) 06/19/17 05:23 POC Sodium 137 mmol/L (138-146) L 06/04/17 16:22 POC Potassium 5.3 (3.5-4.9) H 06/04/17 16:22 POC Chloride 102 (98-109) 06/04/17 16:22 FiO2 35 % 06/19/17 05:23 Sodium 135 mmol/L (137-145) L 06/19/17 07:15 Potassium 4.2 mmol/L (3.6-5.0) 06/19/17 07:15 Chloride 94.3 mmol/L (98-107) L 06/19/17 07:15 Carbon Dioxide 27 mmol/L (22-30) 06/19/17 07:15 Anion Gap 18 mmol/L 06/19/17 07:15 POC BUN 45 mg/dl (8-26) H 06/04/17 16:22 BUN 41 mg/dL (7-17) H 06/19/17 07:15 Creatinine 5.4 mg/dL (0.7-1.2) H 06/19/17 07:15 Estimated GFR 10 ml/min 06/19/17 07:15 BUN/Creatinine Ratio 8 % 06/19/17 07:15 Glucose 117 mg/dL (65-100) H 06/19/17 07:15 POC Glucose 140 (70-105) H 06/20/17 04:40 Osmolality 312 Mosm/kg 06/14/17 09:25 Calcium 10.3 mg/dL (8.4-10.2) H 06/19/17 07:15 Phosphorus 4.50 mg/dL (2.5-4.5) 06/06/17 07:13 Magnesium 1.90 mg/dL (1.7-2.3) 06/16/17 11:00 Total Bilirubin 0.40 mg/dL (0.1-1.2) 06/18/17 08:10 AST 14 units/L (5-40) 06/18/17 08:10 ALT 6 units/L (7-56) L 06/18/17 08:10 Alkaline Phosphatase 92 units/L (35-129) 06/18/17 08:10 Total Protein 5.9 g/dL (6.3-8.2) L 06/18/17 08:10 Albumin 2.8 g/dL (3.9-5) L 06/18/17 08:10 Albumin/Globulin Ratio 0.9 % 06/18/17 08:10 Triglycerides 132 mg/dL (2-149) 06/09/17 11:49 Cholesterol 171 mg/dL (50-199) 06/09/17 11:49 LDL Cholesterol Direct 95 mg/dL (50-130) 06/09/17 11:49 HDL Cholesterol 50 mg/dL (40-59) 06/09/17 11:49 Cholesterol/HDL Ratio 3.42 % 06/09/17 11:49 PTH Pre-Incision 641.9 (11.1-79.5) H 06/04/17 13:55 PTH Post-Excision 154.7 (11.1-79.5) H 06/04/17 13:55 PTH Intact Intraop 5 m Not Reportable 06/04/17 13:55
[2017-06-20] MEDS ORDERED: NACL 0.9% 1000 ML 2,000 ML ONE (14:57)
[2017-06-20] MEDS: PROCRIT IV PRN (16:08)
[2017-06-21 05:56] LABS: Mean Corpuscular HGB Conc 30 % (30-34); Mean Corpuscular Volume 78 fl (79-97); Platelet Count 218 K/mm3 (140-440); Red Blood Count 3.54 M/mm3 (3.65-5.03); Red Cell Distribution Width 18.6 % (13.2-15.2); White Blood Count 18.8 K/mm3 (4.5-11.0)
[2017-06-21 06:06] LABS: INR 1.14 (0.87-1.13)
[2017-06-21 06:10] LABS: Hematocrit 27.6 % (30.3-42.9); Hemoglobin 8.2 gm/dl (10.1-14.3)
[2017-06-21 06:11] LABS: Mean Corpuscular Hemoglobin 23 pg (28-32)
[2017-06-21] MEDS: PROAMATINE PO SCH ×2 (06:15→16:28)
[2017-06-21 06:19] LABS: Chloride 95.5 mmol/L (98-107); Potassium 3.9 mmol/L (3.6-5.0)
[2017-06-21] MEDS: ZOSYN/NS 2.25 GM/50ML 2.25 GM/50 ML BAG IV SCH ×2 (06:34→16:21)
[2017-06-21] MEDS: TUMS PO SCH ×2 (09:25→16:15)
--- NOTE | 2017-06-21 09:46 | Progress Note ---
Subjective Principal diagnosis: ARM/MV/Post hyperparathy./ESRD Interval history: Patient was seen today for follow-up on multiple renal related issues Multiple family members at the bedside Patient currently remains intubated on ventilatory support Events of this hospitalization noted Events over 24 hours vitals, labs, intake and output. Medications were reviewed Allergies: Reviewed Past medical history: Reviewed Social history: Reviewed Family history: Reviewed Current medications: Reviewed Physical examination Vitals: Reviewed Gen.: No acute distress, opens eyes HEENT: Oral mucosa moist. No icterus Neck: Supple, no JVD Chest: Clear to auscultation anteriorly and posteriorly. No wheezes Heart: Regular rate and rhythm, S1, S2 heard, no S3, S4 Abdomen: Soft, nontender. No renal bruit. No CVA tenderness. No suprapubic fullness Extremity: Dry skin, less than 1+ edema Skin: Dry skin. No purpuric rash Assessment and plan End-stage renal disease: Patient is currently in maintenance hemodialysis; had a detailed discussion with patient's multiple family member at the bedside. They do understand the seriousness of her health issues Hypotension, currently on midodrine at started by cardiology. Dose can be adjusted to 5 mg twice a day if needed We will adjust the dialysis prescription. Sodium modeled her, no Procrit due to recent stroke Poorly compliant patient. Secondary hyperparathyroidism, has been chronic and complications from these can result in vascular calcification and high disease burden from these and related events Status post parathyroidectomy. Calcium satisfactory Respiratory failure, currently intubated Anemia and end-stage renal disease. Patient will require packed red blood cell transfusion In my opinion Procrit should be avoided with recent stroke Patient's prognosis appears to be guarded to poor Adequately counseled and educated family members regarding the nature and severity of her health issues They need to discuss with social science research assistant regarding, decision-making power of civil rights attorney, etc. Objective - Vital Signs Vital signs: Vital Signs - 12hr 06/20/17 06/20/17 06/20/17 22:00 22:01 22:15 Temperature Pulse Rate 73 67 Pulse Rate [ From Monitor] Respiratory 17 13 Rate Blood Pressure 71/30 81/32 O2 Sat by Pulse 100 97 100 Oximetry 06/20/17 06/20/17 06/20/17 22:30 22:45 23:00 Temperature Pulse Rate 76 76 73 Pulse Rate [ From Monitor] Respiratory 21 17 21 Rate Blood Pressure 84/36 81/32 97/40 O2 Sat by Pulse 100 100 Oximetry 06/20/17 06/20/17 06/20/17 23:15 23:30 23:31 Temperature 99.1 F Pulse Rate 68 68 Pulse Rate [ From Monitor] Respiratory 12 15 Rate Blood Pressure 84/36 105/40 O2 Sat by Pulse 90 91 Oximetry 06/20/17 06/20/17 06/21/17 23:45 23:56 00:00 Temperature Pulse Rate 65 68 Pulse Rate [ From Monitor] Respiratory 13 Rate Blood Pressure 97/40 105/40 O2 Sat by Pulse 89 99 95 Oximetry 06/21/17 06/21/17 06/21/17 00:01 00:09 00:15 Temperature Pulse Rate 69 73 76 Pulse Rate [ From Monitor] Respiratory 14 14 21 Rate Blood Pressure 115/35 115/35 115/35 O2 Sat by Pulse 98 99 100 Oximetry 06/21/17 06/21/17 06/21/17 00:31 00:45 01:00 Temperature Pulse Rate 67 70 71 Pulse Rate [ From Monitor] Respiratory 13 15 21 Rate Blood Pressure 93/36 115/35 97/43 O2 Sat by Pulse 100 100 99 Oximetry 06/21/17 06/21/17 06/21/17 01:15 01:31 01:45 Temperature Pulse Rate 68 67 65 Pulse Rate [ From Monitor] Respiratory 13 14 12 Rate Blood Pressure 97/43 104/33 104/33 O2 Sat by Pulse 98 100 100 Oximetry 06/21/17 06/21/17 06/21/17 02:00 02:15 02:31 Temperature Pulse Rate 70 68 66 Pulse Rate [ From Monitor] Respiratory 21 12 16 Rate Blood Pressure 102/38 102/38 101/31 O2 Sat by Pulse 100 100 100 Oximetry 06/21/17 06/21/17 06/21/17 02:45 02:59 03:00 Temperature 98.5 F Pulse Rate 69 66 Pulse Rate [ From Monitor] Respiratory 17 15 Rate Blood Pressure 101/31 101/34 O2 Sat by Pulse 100 100 Oximetry 06/21/17 06/21/17 06/21/17 03:15 03:30 03:45 Temperature Pulse Rate 70 67 69 Pulse Rate [ From Monitor] Respiratory 23 16 15 Rate Blood Pressure 101/34 95/38 95/38 O2 Sat by Pulse 100 100 100 Oximetry 1006/21/17 06/21/17 04:00 04:15 04:30 Temperature Pulse Rate 70 69 70 Pulse Rate [ From Monitor] Respiratory 18 17 16 Rate Blood Pressure 100/42 100/42 100/42 O2 Sat by Pulse 100 99 100 Oximetry 06/21/17 06/21/17 06/21/17 04:45 05:00 05:15 Temperature Pulse Rate 65 69 70 Pulse Rate [ From Monitor] Respiratory 13 18 20 Rate Blood Pressure 100/42 98/38 98/38 O2 Sat by Pulse 99 100 100 Oximetry 06/21/17 06/21/17 06/21/17 05:30 05:45 06:00 Temperature Pulse Rate 68 68 68 Pulse Rate [ From Monitor] Respiratory 18 15 23 Rate Blood Pressure 94/37 94/37 94/42 O2 Sat by Pulse 99 99 99 Oximetry 06/21/17 06/21/17 06/21/17 06:15 06:22 06:30 Temperature Pulse Rate 66 68 66 Pulse Rate [ From Monitor] Respiratory 12 17 Rate Blood Pressure 94/42 94/42 94/42 O2 Sat by Pulse 99 100 100 Oximetry 06/21/17 06/21/17 06/21/17 06:45 07:00 07:15 Temperature Pulse Rate 67 66 67 Pulse Rate [ From Monitor] Respiratory 24 21 15 Rate Blood Pressure 94/42 99/36 99/36 O2 Sat by Pulse 100 100 100 Oximetry 06/21/17 06/21/17 06/21/17 07:30 07:45 07:48 Temperature Pulse Rate 65 66 Pulse Rate [ 66 From Monitor] Respiratory 17 17 Rate Blood Pressure 97/40 97/40 O2 Sat by Pulse 100 100 100 Oximetry 06/21/17 06/21/17 06/21/17 08:00 08:15 08:22 Temperature 97.7 F Pulse Rate 64 59 L 62 Pulse Rate [ From Monitor] Respiratory 27 H 12 Rate Blood Pressure 90/44 90/44 90/44 O2 Sat by Pulse 100 100 100 Oximetry 06/21/17 06/21/17 06/21/17 08:30 08:45 09:00 Temperature Pulse Rate 59 L 61 63 Pulse Rate [ From Monitor] Respiratory 18 12 18 Rate Blood Pressure 98/39 98/39 82/46 O2 Sat by Pulse 99 100 99 Oximetry - Lab 06/21/17 05:45 06/21/17 05:45 Most recent lab results ABG pH 7.387 pH Units (7.350-7.450) 06/19/17 05:23 ABG pCO2 48.5 mm Hg 06/19/17 05:23 ABG pO2 116.2 mm Hg (80.0-90.0) H 06/19/17 05:23 ABG HCO3 28.5 mmol/L (20.0-26.0) H 06/19/17 05:23 ABG O2 Saturation 98.1 % (95.0-99.0) 06/19/17 05:23 Calcium 10.0 mg/dL (8.4-10.2) 06/21/17 05:45 Phosphorus 4.50 mg/dL (2.5-4.5) 06/06/17 07:13 Magnesium 1.90 mg/dL (1.7-2.3) 06/16/17 11:00
[2017-06-21] MEDS ORDERED: SUBLIMAZE ONE (10:35)
[2017-06-21] MEDS: HEPARIN SUB-Q SCH (10:39)
--- NOTE | 2017-06-21 10:47 | Consultation ---
History of Present Illness - Reason for Consult Consult date: 06/21/17 sepsis Requesting physician: NOHEMI DOS SANTOS - History of Present Illness 66-year-old female with history of hypertension, ESRD on hemodialysis, breast cancer status post mastectomy and morbid obesity, admitted on 06/04/17 for elective total parathyroidectomy due to secondary hyperparathyroidism; upon arrival her temp was 97.8 and normal vital signs. Patient developed post- operative respiratory failure presumably due to pulmonary edema. She also was found to have an acute left MCA stroke with right-sided weakness. MRI brain showed large left MCA acute infarct. Patient was on aspirin and statin and patient has received mannitol for IC edema. Patient has been in the ICU, intubated since then. Unfortunately by 06/19/2017 patient spiked a fever to 103 , and she also has been transiently hypotensive in several occasions, her white count went up to 18,000 by 06/19. Blood cultures obtained on 06/19/2017 are growing gram-negative roads Patient had a left IJ placement on 06/04 and a Worthing[place] catheter placement on admission. Current Antimicrobials: Zosyn 06/19 Vancomycin 06/19 Microbiology: Blood cultures: 06/19 GNR Urine cultures: none Respiratory cultures: none Past History Past Medical History: cancer (breast), dialysis, ESRD, hypertension, renal failure, other (hyperparathyroidism; MELVI) Past Surgical History: mastectomy, Other (Parathyroidectomy) Social history: single. denies: smoking, alcohol abuse, prescription drug abuse , IV drug use Family history: hypertension Medications and Allergies Allergies Allergy/AdvReac Type Severity Reaction Status Date / Time No Known Allergies Allergy Verified 06/01/17 16:40 Home Medications Medication Instructions Recorded Confirmed Last Taken Type Aspirin [Adult Low Dose Aspirin EC] 81 mg PO DAILY 06/01/17 06/04/17 06/02/17 History Cinacalcet HCl [Sensipar] 180 mg PO DAILY 06/01/17 06/01/17 06/03/17 History Furosemide [Lasix TAB] 80 mg PO QDAY 06/01/17 06/01/17 Unknown History Losartan [Cozaar] 100 mg PO QDAY 06/01/17 06/01/17 06/04/17 07:00 History Metoprolol [Lopressor TAB] 50 mg PO BID 06/01/17 06/01/17 06/04/17 07:00 History Sevelamer Carbonate [Renvela] 1,600 mg PO TIDWM 06/01/17 06/01/17 06/03/17 History Active Meds: Active Medications Lipase/Protease/Amylase (Joaquin Stallworth 10,500 Unit) 1 each FEEDTUBE PRN PRN PRN Reason: For Clogged Feeding Tube Aspirin (Baby Aspirin) 81 mg PO QDAY [facility] Last Admin: 06/20/17 10:27 Dose: 81 mg Atorvastatin Calcium (Lipitor) 40 mg PO QHS [facility] Last Admin: 06/20/17 21:17 Dose: 40 mg Bisacodyl (Dulcolax) 10 mg SD QDAY PRN PRN Reason: constipation unrelieved by MOM Last Admin: 06/14/17 18:10 Dose: 10 mg Calcitriol (Rocaltrol) 0.5 mcg PO QDAY [facility] Last Admin: 06/20/17 10:27 Dose: 0.5 mcg Calcium Carbonate/Glycine (Tums) 1,000 mg PO TID [facility] Last Admin: 06/21/17 09:25 Dose: Not Given Famotidine (Pepcid) 20 mg PO DAILY [facility] Last Admin: 06/20/17 10:27 Dose: 20 mg Heparin Sodium (Porcine) (Heparin) 5,000 unit SUB-Q Q12HR [facility] Last Admin: 06/21/17 10:39 Dose: Not Given Hydralazine HCl (Apresoline) 5 mg IV Q6HR PRN PRN Reason: SBP>160 Last Admin: 06/11/17 12:42 Dose: 5 mg Hydrophilic Ointment (Vaseline Lip Therapy) 1 applic TP Q2HR PRN PRN Reason: Dry Lips Last Admin: 06/05/17 17:46 Dose: 1 applic Fentanyl Citrate (Fentanyl Drip Premix) 2,000 mcg in 100 mls @ 6.124 mls/hr IV TITR JANE; 1 MCG/KG/HR PRN Reason: Protocol Sodium Chloride (Nacl 0.9%) 100 mls @ 999 mls/hr IV KAYLA PRN PRN Reason: Hypotension Piperacillin Sod/Tazobactam Sod (Zosyn/Ns 2.25 Gm/50ml) 2.25 gm in 50 mls @ 100 mls/hr IV Q8HR JANE PRN Reason: Protocol Last Admin: 06/21/17 06:34 Dose: 100 mls/hr Sodium Chloride (Nacl 0.9%) 100 mls @ 999 mls/hr IV KAYLA PRN PRN Reason: Hypotension Last Admin: 06/20/17 22:28 Dose: 999 mls/hr Midodrine (Proamatine) 2.5 mg PO Q8HR JANE Last Admin: 06/21/17 06:15 Dose: 2.5 mg Multi-Ingred Cream/Lotion/Oil/Oint (Artificial Tears Ophth Oint) 1 applic OU Q4HR PRN PRN Reason: Dry Eye(s) Simple Syrup (Simple Syrup) 15 ml FEEDTUBE PRN PRN PRN Reason: Hypoglycemia Simple Syrup (Simple Syrup) 30 ml FEEDTUBE PRN PRN PRN Reason: Hypoglycemia Sodium Bicarbonate (Sodium Bicarbonate) 325 mg FEEDTUBE PRN PRN PRN Reason: For Clogged Feeding Tube Sodium Chloride (Nacl 0.9% 500 Ml) 1 ml IV DIRECT JANE Vancomycin HCl (Vancomycin Pharmacy To Dose) 1 each IV PKCONSULT JANE PRN Reason: Protocol Review of Systems ROS unobtainable: due to endotracheal tube, due to mental status Physical Examination - Physical Exam Narrative exam: General appearance: sedated on the vent Eyes: anicteric sclerae, moist conjunctivae; no lid-lag; PERRLA HENT: Atraumatic; oropharynx +ETT +NGT Neck: surgical scar well healed Lungs: dillon rhonchi / chest + mastectomy scar well healed CV: RRR Abdomen: Soft, non-tender Extremities: +peripheral edema Skin: Normal temperature, turgor and texture; no rash, ulcers or subcutaneous nodules Psych: sedated. Neuro: sedated Lines: left IJ 06/04 - Constitutional Vitals: Vital Signs Temp Pulse Resp BP Pulse Ox 97.7 F 63 14 88/38 98 06/21/17 08:00 06/21/17 10:15 06/21/17 10:15 06/21/17 10:15 06/21/17 10:15 Temperature -Last 24 Hours Temperature 97.7 F Temperature 98.5 F Temperature 99.1 F Temperature 99.4 F Temperature 98.8 F Temperature 97.9 F Temperature 98.8 F Temperature 98.4 F Results - Labs CBC & Chem 7: 06/21/17 05:45 06/21/17 05:45 Labs: Abnormal lab results 06/21/17 06/21/17 06/21/17 Range/Units 05:13 05:45 05:45 WBC 18.8 H (4.5-11.0) K/mm3 RBC 3.54 L (3.65-5.03) M/mm3 Hgb 8.2 L (10.1-14.3) gm/dl Hct 27.6 L (30.3-42.9) % MCV 78 L (79-97) fl MCH 23 L (28-32) pg RDW 18.6 H (13.2-15.2) % PT 15.2 H (12.2-14.9) Sec. INR 1.14 H (0.87-1.13) Chloride (98-107) mmol/L BUN (7-17) mg/dL Creatinine (0.7-1.2) mg/dL Glucose (65-100) mg/dL POC Glucose 140 H (70-105) C-Reactive Protein (0.00-1.30) mg/dL 06/21/17 06/21/17 Range/Units 05:45 08:28 WBC (4.5-11.0) K/mm3 RBC (3.65-5.03) M/mm3 Hgb (10.1-14.3) gm/dl Hct (30.3-42.9) % MCV (79-97) fl MCH (28-32) pg RDW (13.2-15.2) % PT (12.2-14.9) Sec. INR (0.87-1.13) Chloride 95.5 L (98-107) mmol/L BUN 38 H (7-17) mg/dL Creatinine 4.8 H (0.7-1.2) mg/dL Glucose 126 H (65-100) mg/dL POC Glucose (70-105) C-Reactive Protein 13.60 H (0.00-1.30) mg/dL Assessment and Plan Assessment: 1) Sepsis: Not present on admission, manifested by fever, hypotension, leukocytosis. Etiology most likely GNR septicemia. 2) GNR septicemia: unclear source ? CLABSI versus UTI 3) Acute left MCA stroke with right-sided weakness. MRI brain showed large left MCA acute infarct. 4) Secondary hyperparathyroidismelective s/p total parathyroidectomy on 06/04/17 5) ESRD on HD 6) Respiratory failure ? pulmonary edema Plan: -repeat blood cultures, UA, urine culture, respiratory cultures -remove worthing[place] cath and IJ cath -continue zosyn and vancomycin renally dosed for now- will stop soon vancomycin since no GPC isolated yet -obtain procalcitonin, C-reactive protein (CRP) -discussed with ICU staff Thank you Dr Dos Santos for your consultation, will follow up with you. Paz Bonilla MD Infectious Diseases Specialist [facility] M [phone] O [phone]
--- NOTE | 2017-06-21 11:22 | Anesthesia Consultation ---
Anesthesia Consult and Med Hx Date of service: 06/21/17 - Pulmonary Exam CTA: Yes - Cardiac Exam Cardiac Exam: RRR - Pre-Operative Health Status ASA Pre-Surgery Classification: ASA4 Proposed Anesthetic Plan: General - Pre-Anesthesia Comment Pre-Anesthesia Comments: Responsive, follow commands. Intubated. - Pulmonary Hx Smoking: Yes (STOPPED 1998, 09/09 PPD X 10 YRS) - Cardiovascular System Hx Hypertension: Yes Hx Heart Murmur: Yes (CAUSES NO PROBLEMS) - Central Nervous System CVA: Yes - Endocrine Hx Renal Disease: Yes (AVF LEFT ARM) Hx End Stage Renal Disease: Yes - Hematic Hx Anemia: Yes Hx Sickle Cell Disease: Yes (trait only) - Other Systems Hx Cancer: Yes Hx Obesity: Yes - Additional Comments Anesthesia Medical History Comments: NAC
--- NOTE | 2017-06-21 11:25 | Anesthesia Day of Surgery ---
Anesthesia Day of Surgery - Day of Surgery Patient Examined: Yes Patient H&P Reviewed: Yes Patient is NPO: Yes
[2017-06-21] MEDS ORDERED: XYLOCAINE 1%/ EPI 1:100,000 INFILTRATI ONE ×3 (11:45→13:51)
[2017-06-21] MEDS ORDERED: VERSED ONE (13:14)
[2017-06-21] MEDS ORDERED: WATER FOR IRRIG STERILE IR ONE (13:22)
[2017-06-21] MEDS ORDERED: ROBINUL ONE (13:40)
[2017-06-21] MEDS ORDERED: ZEMURON IV ONE (13:40)
[2017-06-21] MEDS ORDERED: NACL 0.9% IR ONE (13:51)
--- NOTE | 2017-06-21 14:02 | Progress Note ---
Assessment and Plan 66 y/o female with post-op respiratory failure, likely from pulmonary edema and possible airway edema with end stage renal disease. No new recs for today. 1. Trach today 2. HD per renal 3. No sedation, continue to leave off 4. Follow up Neurology recs, none since 06/12 5. Overall prognosis is guarded to poor 6. Continue PSV trials as tolerated. 7. Will need ltach once trached and pegged 8. Fever, now with positive blood cultures, ID following CCT 31 minutes. Subjective Date of service: 06/21/17 Principal diagnosis: ARM/MV/Post hyperparathy./ESRD Interval history: No acute events. In [place] getting trached and pegged. Objective Vital Signs - 12hr 06/21/17 06/21/17 06/21/17 02:15 02:31 02:45 Temperature Pulse Rate 68 66 69 Pulse Rate [ From Monitor] Respiratory 12 16 17 Rate Blood Pressure 102/38 101/31 101/31 O2 Sat by Pulse 100 100 100 Oximetry 06/21/17 06/21/17 06/21/17 02:59 03:00 03:15 Temperature 98.5 F Pulse Rate 66 70 Pulse Rate [ From Monitor] Respiratory 15 23 Rate Blood Pressure 101/34 101/34 O2 Sat by Pulse 100 100 Oximetry 06/21/17 06/21/17 06/21/17 03:30 03:45 04:00 Temperature Pulse Rate 67 69 70 Pulse Rate [ From Monitor] Respiratory 16 15 18 Rate Blood Pressure 95/38 95/38 100/42 O2 Sat by Pulse 100 100 100 Oximetry 06/21/17 06/21/17 06/21/17 04:15 04:30 04:45 Temperature Pulse Rate 69 70 65 Pulse Rate [ From Monitor] Respiratory 17 16 13 Rate Blood Pressure 100/42 100/42 100/42 O2 Sat by Pulse 99 100 99 Oximetry 06/21/17 06/21/17 06/21/17 05:00 05:15 05:30 Temperature Pulse Rate 69 70 68 Pulse Rate [ From Monitor] Respiratory 18 20 18 Rate Blood Pressure 98/38 98/38 94/37 O2 Sat by Pulse 100 100 99 Oximetry 06/21/17 06/21/17 06/21/17 05:45 06:00 06:15 Temperature Pulse Rate 68 68 66 Pulse Rate [ From Monitor] Respiratory 15 23 12 Rate Blood Pressure 94/37 94/42 94/42 O2 Sat by Pulse 99 99 99 Oximetry 06/21/17 06/21/17 06/21/17 06:22 06:30 06:45 Temperature Pulse Rate 68 66 67 Pulse Rate [ From Monitor] Respiratory 17 24 Rate Blood Pressure 94/42 94/42 94/42 O2 Sat by Pulse 100 100 100 Oximetry 06/21/17 06/21/17 06/21/17 07:00 07:15 07:30 Temperature Pulse Rate 66 67 65 Pulse Rate [ From Monitor] Respiratory 21 15 17 Rate Blood Pressure 99/36 99/36 97/40 O2 Sat by Pulse 100 100 100 Oximetry 06/21/17 06/21/17 06/21/17 07:45 07:48 08:00 Temperature 97.7 F Pulse Rate 66 64 Pulse Rate [ 66 From Monitor] Respiratory 17 27 H Rate Blood Pressure 97/40 90/44 O2 Sat by Pulse 100 100 100 Oximetry 06/21/17 06/21/17 06/21/17 08:15 08:22 08:30 Temperature Pulse Rate 59 L 62 59 L Pulse Rate [ From Monitor] Respiratory 12 18 Rate Blood Pressure 90/44 90/44 98/39 O2 Sat by Pulse 100 100 99 Oximetry 06/21/17 06/21/17 06/21/17 08:45 09:00 09:15 Temperature Pulse Rate 61 63 62 Pulse Rate [ From Monitor] Respiratory 12 18 16 Rate Blood Pressure 98/39 82/46 82/46 O2 Sat by Pulse 100 99 98 Oximetry 06/21/17 06/21/17 06/21/17 09:30 09:45 10:00 Temperature Pulse Rate 65 62 64 Pulse Rate [ From Monitor] Respiratory 19 12 16 Rate Blood Pressure 90/43 90/43 88/38 O2 Sat by Pulse 100 98 99 Oximetry 06/21/17 06/21/17 06/21/17 10:15 10:30 10:45 Temperature Pulse Rate 63 64 66 Pulse Rate [ From Monitor] Respiratory 14 16 13 Rate Blood Pressure 88/38 93/41 93/41 O2 Sat by Pulse 98 99 100 Oximetry 06/21/17 06/21/17 06/21/17 11:00 11:15 11:30 Temperature Pulse Rate 67 65 63 Pulse Rate [ From Monitor] Respiratory 17 12 15 Rate Blood Pressure 94/41 94/41 90/40 O2 Sat by Pulse 99 99 99 Oximetry 06/21/17 06/21/17 06/21/17 11:45 12:00 12:14 Temperature 98.6 F Pulse Rate 64 62 Pulse Rate [ From Monitor] Respiratory 13 16 Rate Blood Pressure 90/40 98/44 O2 Sat by Pulse 98 99 100 Oximetry 06/21/17 06/21/17 12:15 12:30 Temperature Pulse Rate 85 62 Pulse Rate [ From Monitor] Respiratory 18 13 Rate Blood Pressure 98/44 93/39 O2 Sat by Pulse 99 99 Oximetry Constitutional: no acute distress, other (intubated, some response to tactile stimulation otherwise nonresponsive) Eyes: non-icteric ENT: other (orally intubated) Neck: supple, no JVD, other (no stridor) Effort: normal Ascultation: Bilateral: clear, diminished breath sounds, rales, other (coarse BS bilaterally) Percussion: Bilateral: not dull Cardiovascular: regular rate and rhythm Gastrointestinal: normoactive bowel sounds, soft, non-tender, non-distended, other (obese) Integumentary: normal Extremities: no cyanosis, no edema, pink and warm, edema Neurologic: other (altered mentation, R-hemiparesis,GCS 3-4) Psychiatric: mood appropriate, affect normal CBC and BMP: 06/21/17 05:45 06/21/17 05:45 ABG, PT/INR, D-dimer: ABG POC ABG pH 7.556 (7.35-7.45) H 06/11/17 06:51 ABG pH 7.387 pH Units (7.350-7.450) 06/19/17 05:23 POC ABG pCO2 34.8 (35-45) L 06/11/17 06:51 ABG pCO2 48.5 mm Hg 06/19/17 05:23 POC ABG pO2 125 (80-105) H 06/11/17 06:51 ABG pO2 116.2 mm Hg (80.0-90.0) H 06/19/17 05:23 POC ABG HCO3 30.9 06/11/17 06:51 POC ABG Total CO2 32 06/11/17 06:51 POC ABG O2 Sat 99 06/11/17 06:51 ABG O2 Saturation 98.1 % (95.0-99.0) 06/19/17 05:23 PT/INR, D-dimer PT 15.2 Sec. (12.2-14.9) H 06/21/17 05:45 INR 1.14 (0.87-1.13) H 06/21/17 05:45 Abnormal lab findings: Abnormal Labs 06/04/17 06/04/17 06/04/17 00:01 12:50 13:55 WBC 11.4 H RBC Hgb Hct POC Hct MCV 76 L MCH 23 L RDW 18.5 H [place] % (Auto) [place] # Seg Neutrophils % Seg Neuts % (Manual) 89.0 H Lymphocytes % (Manual) 6.0 L Monocytes % (Manual) Nucleated RBC % Seg Neutrophils # Seg Neutrophils # Man 10.1 H Lymphocytes # (Manual) 0.7 L Monocytes # (Manual) Eosinophils # (Manual) Basophils # (Manual) PT INR POC ABG pH ABG pH POC ABG pCO2 POC ABG pO2 ABG pO2 ABG HCO3 ABG O2 Saturation ABG Hemoglobin POC Sodium POC Potassium Sodium Potassium 5.1 H 5.2 H Chloride Carbon Dioxide POC BUN BUN 48 H Creatinine 6.2 H Glucose POC Glucose Calcium ALT C-Reactive Protein Total Protein Albumin PTH Pre-Incision PTH Post-Excision 06/04/17 06/04/17 06/04/17 13:55 16:10 16:16 WBC RBC Hgb Hct POC Hct 37 L MCV MCH RDW [place] % (Auto) [place] # Seg Neutrophils % Seg Neuts % (Manual) Lymphocytes % (Manual) Monocytes % (Manual) Nucleated RBC % Seg Neutrophils # Seg Neutrophils # Man Lymphocytes # (Manual) Monocytes # (Manual) Eosinophils # (Manual) Basophils # (Manual) PT INR POC ABG pH 7.306 L ABG pH POC ABG pCO2 58.7 H POC ABG pO2 338 H ABG pO2 ABG HCO3 ABG O2 Saturation ABG Hemoglobin POC Sodium 135 L POC Potassium 5.2 H Sodium Potassium Chloride Carbon Dioxide POC BUN 44 H BUN Creatinine Glucose POC Glucose 183 H Calcium ALT C-Reactive Protein Total Protein Albumin PTH Pre-Incision 641.9 H PTH Post-Excision 154.7 H 06/04/17 06/04/17 06/04/17 16:22 20:44 21:29 WBC RBC Hgb Hct POC Hct MCV MCH RDW [place] % (Auto) [place] # Seg Neutrophils % Seg Neuts % (Manual) Lymphocytes % (Manual) Monocytes % (Manual) Nucleated RBC % Seg Neutrophils # Seg Neutrophils # Man Lymphocytes # (Manual) Monocytes # (Manual) Eosinophils # (Manual) Basophils # (Manual) PT INR POC ABG pH 7.484 H ABG pH POC ABG pCO2 POC ABG pO2 ABG pO2 ABG HCO3 ABG O2 Saturation ABG Hemoglobin POC Sodium 137 L POC Potassium 5.3 H Sodium Potassium 5.2 H Chloride Carbon Dioxide POC BUN 45 H BUN 51 H Creatinine 6.5 H Glucose 119 H POC Glucose 176 H Calcium ALT C-Reactive Protein Total Protein Albumin PTH Pre-Incision PTH Post-Excision 06/05/17 06/05/17 06/05/17 03:31 11:44 11:44 WBC 13.4 H RBC Hgb Hct POC Hct MCV 75 L MCH 23 L RDW 18.2 H [place] % (Auto) [place] # Seg Neutrophils % Seg Neuts % (Manual) Lymphocytes % (Manual) Monocytes % (Manual) Nucleated RBC % Seg Neutrophils # Seg Neutrophils # Man Lymphocytes # (Manual) Monocytes # (Manual) Eosinophils # (Manual) Basophils # (Manual) PT INR POC ABG pH ABG pH POC ABG pCO2 POC ABG pO2 75 L ABG pO2 ABG HCO3 ABG O2 Saturation ABG Hemoglobin POC Sodium POC Potassium Sodium Potassium 5.8 H Chloride Carbon Dioxide POC BUN BUN 56 H Creatinine 7.0 H Glucose 111 H POC Glucose Calcium 8.2 L ALT C-Reactive Protein Total Protein 6.2 L Albumin 3.1 L PTH Pre-Incision PTH Post-Excision 06/06/17 06/06/17 06/07/17 05:07 07:13 03:53 WBC RBC Hgb Hct POC Hct MCV MCH RDW [place] % (Auto) [place] # Seg Neutrophils % Seg Neuts % (Manual) Lymphocytes % (Manual) Monocytes % (Manual) Nucleated RBC % Seg Neutrophils # Seg Neutrophils # Man Lymphocytes # (Manual) Monocytes # (Manual) Eosinophils # (Manual) Basophils # (Manual) PT INR POC ABG pH ABG pH POC ABG pCO2 POC ABG pO2 116 H 137 H ABG pO2 ABG HCO3 ABG O2 Saturation ABG Hemoglobin POC Sodium POC Potassium Sodium Potassium Chloride Carbon Dioxide POC BUN BUN 32 H Creatinine 4.9 H Glucose 115 H POC Glucose Calcium 7.9 L ALT C-Reactive Protein Total Protein 5.7 L Albumin 3.3 L PTH Pre-Incision PTH Post-Excision 06/07/17 06/07/17 06/07/17 05:21 05:21 16:54 WBC RBC Hgb Hct POC Hct MCV 75 L MCH 24 L RDW 18.7 H [place] % (Auto) [place] # Seg Neutrophils % Seg Neuts % (Manual) Lymphocytes % (Manual) Monocytes % (Manual) Nucleated RBC % Seg Neutrophils # Seg Neutrophils # Man Lymphocytes # (Manual) Monocytes # (Manual) Eosinophils # (Manual) Basophils # (Manual) PT INR POC ABG pH ABG pH POC ABG pCO2 POC ABG pO2 ABG pO2 ABG HCO3 ABG O2 Saturation ABG Hemoglobin POC Sodium POC Potassium Sodium Potassium 5.4 H Chloride Carbon Dioxide POC BUN BUN 52 H Creatinine 6.2 H Glucose 107 H POC Glucose 110 H Calcium 8.0 L ALT C-Reactive Protein Total Protein Albumin PTH Pre-Incision PTH Post-Excision 06/07/17 06/07/17 06/08/17 17:38 23:32 04:00 WBC RBC Hgb Hct POC Hct MCV 77 L MCH 23 L RDW 18.3 H [place] % (Auto) [place] # Seg Neutrophils % Seg Neuts % (Manual) 78.0 H Lymphocytes % (Manual) Monocytes % (Manual) Nucleated RBC % 3.0 H Seg Neutrophils # Seg Neutrophils # Man 7.8 H Lymphocytes # (Manual) Monocytes # (Manual) Eosinophils # (Manual) Basophils # (Manual) PT INR POC ABG pH 7.310 L ABG pH POC ABG pCO2 51.9 H POC ABG pO2 ABG pO2 ABG HCO3 ABG O2 Saturation ABG Hemoglobin POC Sodium POC Potassium Sodium Potassium Chloride Carbon Dioxide POC BUN BUN Creatinine Glucose POC Glucose 63 L Calcium ALT C-Reactive Protein Total Protein Albumin PTH Pre-Incision PTH Post-Excision 06/08/17 06/08/17 06/08/17 04:00 10:51 11:25 WBC RBC Hgb Hct POC Hct MCV MCH RDW [place] % (Auto) [place] # Seg Neutrophils % Seg Neuts % (Manual) Lymphocytes % (Manual) Monocytes % (Manual) Nucleated RBC % Seg Neutrophils # Seg Neutrophils # Man Lymphocytes # (Manual) Monocytes # (Manual) Eosinophils # (Manual) Basophils # (Manual) PT INR POC ABG pH 7.336 L ABG pH POC ABG pCO2 55.1 H POC ABG pO2 ABG pO2 ABG HCO3 ABG O2 Saturation ABG Hemoglobin POC Sodium POC Potassium Sodium Potassium Chloride 96.9 L Carbon Dioxide POC BUN BUN 29 H Creatinine 4.6 H Glucose POC Glucose 108 H Calcium 8.3 L ALT C-Reactive Protein Total Protein Albumin PTH Pre-Incision PTH Post-Excision 06/08/17 06/09/17 06/09/17 14:22 11:42 11:42 WBC RBC Hgb Hct POC Hct MCV 76 L MCH 24 L RDW 18.3 H [place] % (Auto) [place] # Seg Neutrophils % Seg Neuts % (Manual) 80.0 H Lymphocytes % (Manual) 10.0 L Monocytes % (Manual) Nucleated RBC % 2.0 H Seg Neutrophils # Seg Neutrophils # Man Lymphocytes # (Manual) 1.0 L Monocytes # (Manual) Eosinophils # (Manual) Basophils # (Manual) PT INR POC ABG pH ABG pH POC ABG pCO2 52.8 H POC ABG pO2 77 L ABG pO2 ABG HCO3 ABG O2 Saturation ABG Hemoglobin POC Sodium POC Potassium Sodium Potassium 5.4 H D Chloride 97.1 L Carbon Dioxide POC BUN BUN 58 H Creatinine 6.6 H Glucose POC Glucose Calcium 7.2 L ALT C-Reactive Protein Total Protein Albumin PTH Pre-Incision PTH Post-Excision 06/09/17 06/10/17 06/10/17 12:04 03:29 03:29 WBC 13.7 H RBC Hgb Hct POC Hct MCV 77 L MCH 24 L RDW 17.9 H [place] % (Auto) [place] # Seg Neutrophils % Seg Neuts % (Manual) 82.0 H Lymphocytes % (Manual) 7.0 L Monocytes % (Manual) Nucleated RBC % 6.0 H Seg Neutrophils # Seg Neutrophils # Man 11.2 H Lymphocytes # (Manual) 1.0 L Monocytes # (Manual) Eosinophils # (Manual) Basophils # (Manual) PT INR POC ABG pH ABG pH POC ABG pCO2 POC ABG pO2 ABG pO2 ABG HCO3 ABG O2 Saturation ABG Hemoglobin POC Sodium POC Potassium Sodium Potassium Chloride 94.2 L Carbon Dioxide POC BUN BUN 32 H Creatinine 4.6 H Glucose 106 H POC Glucose 106 H Calcium 8.0 L ALT C-Reactive Protein Total Protein Albumin PTH Pre-Incision PTH Post-Excision 06/10/17 06/11/17 06/11/17 05:27 06:00 06:00 WBC 11.8 H RBC Hgb Hct POC Hct MCV 77 L MCH 24 L RDW 18.3 H [place] % (Auto) [place] # Seg Neutrophils % Seg Neuts % (Manual) 88.0 H Lymphocytes % (Manual) 7.0 L Monocytes % (Manual) Nucleated RBC % 1.0 H Seg Neutrophils # Seg Neutrophils # Man 10.4 H Lymphocytes # (Manual) 0.8 L Monocytes # (Manual) Eosinophils # (Manual) Basophils # (Manual) PT INR POC ABG pH ABG pH POC ABG pCO2 POC ABG pO2 ABG pO2 ABG HCO3 ABG O2 Saturation ABG Hemoglobin POC Sodium POC Potassium Sodium Potassium Chloride Carbon Dioxide POC BUN BUN 53 H Creatinine 6.0 H Glucose POC Glucose 106 H Calcium 6.3 L D ALT C-Reactive Protein Total Protein Albumin PTH Pre-Incision PTH Post-Excision 06/11/17 06/11/17 06/11/17 06:51 12:10 16:54 WBC RBC Hgb Hct POC Hct MCV MCH RDW [place] % (Auto) [place] # Seg Neutrophils % Seg Neuts % (Manual) Lymphocytes % (Manual) Monocytes % (Manual) Nucleated RBC % Seg Neutrophils # Seg Neutrophils # Man Lymphocytes # (Manual) Monocytes # (Manual) Eosinophils # (Manual) Basophils # (Manual) PT INR POC ABG pH 7.556 H ABG pH POC ABG pCO2 34.8 L POC ABG pO2 125 H ABG pO2 ABG HCO3 ABG O2 Saturation ABG Hemoglobin POC Sodium POC Potassium Sodium Potassium Chloride Carbon Dioxide POC BUN BUN Creatinine Glucose POC Glucose 115 H 106 H Calcium ALT C-Reactive Protein Total Protein Albumin PTH Pre-Incision PTH Post-Excision 06/11/17 06/12/17 06/12/17 20:20 00:06 04:20 WBC RBC Hgb Hct POC Hct MCV MCH RDW [place] % (Auto) [place] # Seg Neutrophils % Seg Neuts % (Manual) Lymphocytes % (Manual) Monocytes % (Manual) Nucleated RBC % Seg Neutrophils # Seg Neutrophils # Man Lymphocytes # (Manual) Monocytes # (Manual) Eosinophils # (Manual) Basophils # (Manual) PT INR POC ABG pH ABG pH 7.512 H 7.514 H POC ABG pCO2 POC ABG pO2 ABG pO2 148.5 H 209.1 H ABG HCO3 ABG O2 Saturation 99.3 H ABG Hemoglobin POC Sodium POC Potassium Sodium Potassium Chloride Carbon Dioxide POC BUN BUN Creatinine Glucose POC Glucose 108 H Calcium ALT C-Reactive Protein Total Protein Albumin PTH Pre-Incision PTH Post-Excision 06/12/17 06/12/17 06/12/17 05:24 05:30 05:30 WBC 14.3 H RBC Hgb Hct POC Hct MCV 75 L MCH 24 L RDW 18.5 H [place] % (Auto) [place] # Seg Neutrophils % Seg Neuts % (Manual) 73.0 H Lymphocytes % (Manual) 6.0 L Monocytes % (Manual) 9.0 H Nucleated RBC % 1.0 H Seg Neutrophils # Seg Neutrophils # Man 10.4 H Lymphocytes # (Manual) 0.9 L Monocytes # (Manual) 1.3 H Eosinophils # (Manual) Basophils # (Manual) PT INR POC ABG pH ABG pH POC ABG pCO2 POC ABG pO2 ABG pO2 ABG HCO3 ABG O2 Saturation ABG Hemoglobin POC Sodium POC Potassium Sodium 131 L D Potassium Chloride 90.6 L Carbon Dioxide POC BUN BUN 51 H Creatinine 6.5 H Glucose POC Glucose 109 H Calcium ALT C-Reactive Protein Total Protein Albumin PTH Pre-Incision PTH Post-Excision 06/12/17 06/13/17 06/13/17 11:46 04:15 04:55 WBC 17.9 H RBC Hgb Hct POC Hct MCV 75 L MCH 24 L RDW 18.5 H [place] % (Auto) [place] # Seg Neutrophils % Seg Neuts % (Manual) 75.0 H Lymphocytes % (Manual) 6.0 L Monocytes % (Manual) 9.0 H Nucleated RBC % Seg Neutrophils # Seg Neutrophils # Man 13.4 H Lymphocytes # (Manual) 1.1 L Monocytes # (Manual) 1.6 H Eosinophils # (Manual) 0.5 H Basophils # (Manual) 0.2 H PT INR POC ABG pH ABG pH POC ABG pCO2 POC ABG pO2 ABG pO2 131.0 H ABG HCO3 ABG O2 Saturation ABG Hemoglobin 10.5 L POC Sodium POC Potassium Sodium Potassium Chloride Carbon Dioxide POC BUN BUN Creatinine Glucose POC Glucose 116 H Calcium ALT C-Reactive Protein Total Protein Albumin PTH Pre-Incision PTH Post-Excision 06/13/17 06/13/17 06/14/17 04:55 17:23 04:30 WBC 17.8 H RBC Hgb 9.7 L Hct POC Hct MCV 76 L MCH 24 L RDW 18.3 H [place] % (Auto) [place] # Seg Neutrophils % Seg Neuts % (Manual) 74.0 H Lymphocytes % (Manual) 6.0 L Monocytes % (Manual) 9.0 H Nucleated RBC % Seg Neutrophils # Seg Neutrophils # Man 13.2 H Lymphocytes # (Manual) 1.1 L Monocytes # (Manual) 1.6 H Eosinophils # (Manual) Basophils # (Manual) PT INR POC ABG pH ABG pH POC ABG pCO2 POC ABG pO2 ABG pO2 ABG HCO3 ABG O2 Saturation ABG Hemoglobin POC Sodium POC Potassium Sodium 128 L Potassium Chloride 88.9 L Carbon Dioxide POC BUN BUN 73 H Creatinine 7.6 H Glucose 115 H POC Glucose 113 H Calcium 8.1 L ALT C-Reactive Protein Total Protein Albumin PTH Pre-Incision PTH Post-Excision 06/14/17 06/14/17 06/14/17 04:30 05:30 05:49 WBC RBC Hgb Hct POC Hct MCV MCH RDW [place] % (Auto) [place] # Seg Neutrophils % Seg Neuts % (Manual) Lymphocytes % (Manual) Monocytes % (Manual) Nucleated RBC % Seg Neutrophils # Seg Neutrophils # Man Lymphocytes # (Manual) Monocytes # (Manual) Eosinophils # (Manual) Basophils # (Manual) PT INR POC ABG pH ABG pH POC ABG pCO2 POC ABG pO2 ABG pO2 109.3 H ABG HCO3 ABG O2 Saturation ABG Hemoglobin 10.7 L POC Sodium POC Potassium Sodium 124 L Potassium Chloride 84.3 L Carbon Dioxide POC BUN BUN 86 H Creatinine 9.0 H Glucose 106 H POC Glucose 111 H Calcium 8.1 L ALT C-Reactive Protein Total Protein Albumin PTH Pre-Incision PTH Post-Excision 06/14/17 06/14/17 06/14/17 12:27 16:05 23:35 WBC RBC Hgb Hct POC Hct MCV MCH RDW [place] % (Auto) [place] # Seg Neutrophils % Seg Neuts % (Manual) Lymphocytes % (Manual) Monocytes % (Manual) Nucleated RBC % Seg Neutrophils # Seg Neutrophils # Man Lymphocytes # (Manual) Monocytes # (Manual) Eosinophils # (Manual) Basophils # (Manual) PT INR POC ABG pH ABG pH POC ABG pCO2 POC ABG pO2 ABG pO2 ABG HCO3 ABG O2 Saturation ABG Hemoglobin POC Sodium POC Potassium Sodium Potassium Chloride Carbon Dioxide POC BUN BUN Creatinine Glucose POC Glucose 139 H 133 H 147 H Calcium ALT C-Reactive Protein Total Protein Albumin PTH Pre-Incision PTH Post-Excision 06/15/17 06/15/17 06/15/17 05:05 06:00 06:00 WBC 21.4 H RBC Hgb 9.2 L Hct POC Hct MCV 77 L MCH 23 L RDW 18.8 H [place] % (Auto) [place] # Seg Neutrophils % Seg Neuts % (Manual) 86.0 H Lymphocytes % (Manual) 2.0 L Monocytes % (Manual) Nucleated RBC % 1.0 H Seg Neutrophils # Seg Neutrophils # Man 18.4 H Lymphocytes # (Manual) 0.4 L Monocytes # (Manual) 1.5 H Eosinophils # (Manual) Basophils # (Manual) PT INR POC ABG pH ABG pH POC ABG pCO2 POC ABG pO2 ABG pO2 ABG HCO3 ABG O2 Saturation ABG Hemoglobin POC Sodium POC Potassium Sodium 132 L D Potassium Chloride 91.5 L Carbon Dioxide POC BUN BUN 59 H Creatinine 6.6 H Glucose 116 H POC Glucose 145 H Calcium ALT C-Reactive Protein Total Protein Albumin PTH Pre-Incision PTH Post-Excision 06/15/17 06/15/17 06/15/17 12:04 17:55 23:40 WBC RBC Hgb Hct POC Hct MCV MCH RDW [place] % (Auto) [place] # Seg Neutrophils % Seg Neuts % (Manual) Lymphocytes % (Manual) Monocytes % (Manual) Nucleated RBC % Seg Neutrophils # Seg Neutrophils # Man Lymphocytes # (Manual) Monocytes # (Manual) Eosinophils # (Manual) Basophils # (Manual) PT INR POC ABG pH ABG pH POC ABG pCO2 POC ABG pO2 ABG pO2 ABG HCO3 ABG O2 Saturation ABG Hemoglobin POC Sodium POC Potassium Sodium Potassium Chloride Carbon Dioxide POC BUN BUN Creatinine Glucose POC Glucose 109 H 119 H 123 H Calcium ALT C-Reactive Protein Total Protein Albumin PTH Pre-Incision PTH Post-Excision 06/15/17 06/16/17 06/16/17 Unknown 06:00 08:45 WBC 21.9 H RBC Hgb 8.9 L Hct 29.0 L POC Hct MCV 77 L MCH 24 L RDW 18.1 H [place] % (Auto) 11.2 H [place] # 1.6 H Seg Neutrophils % 82.8 H Seg Neuts % (Manual) 78.0 H Lymphocytes % (Manual) 3.0 L Monocytes % (Manual) 9.0 H Nucleated RBC % 1.0 H Seg Neutrophils # 12.2 H Seg Neutrophils # Man 17.1 H Lymphocytes # (Manual) 0.7 L Monocytes # (Manual) 2.0 H Eosinophils # (Manual) Basophils # (Manual) 0.2 H PT INR POC ABG pH ABG pH POC ABG pCO2 POC ABG pO2 ABG pO2 115.7 H ABG HCO3 27.6 H ABG O2 Saturation ABG Hemoglobin 9.2 L POC Sodium POC Potassium Sodium Potassium 2.7 L* D Chloride 111.6 H Carbon Dioxide 17 L D POC BUN BUN 52 H Creatinine 5.0 H Glucose POC Glucose Calcium 5.3 L* D ALT C-Reactive Protein Total Protein Albumin PTH Pre-Incision PTH Post-Excision 06/16/17 06/16/17 06/16/17 09:25 11:00 12:07 WBC RBC Hgb Hct POC Hct MCV MCH RDW [place] % (Auto) [place] # Seg Neutrophils % Seg Neuts % (Manual) Lymphocytes % (Manual) Monocytes % (Manual) Nucleated RBC % Seg Neutrophils # Seg Neutrophils # Man Lymphocytes # (Manual) Monocytes # (Manual) Eosinophils # (Manual) Basophils # (Manual) PT INR POC ABG pH ABG pH POC ABG pCO2 POC ABG pO2 ABG pO2 102.0 H ABG HCO3 27.1 H ABG O2 Saturation ABG Hemoglobin 9.0 L POC Sodium POC Potassium Sodium Potassium Chloride 95.2 L Carbon Dioxide POC BUN BUN 60 H Creatinine 6.3 H Glucose 114 H POC Glucose 111 H Calcium 10.6 H D ALT C-Reactive Protein Total Protein Albumin PTH Pre-Incision PTH Post-Excision 06/16/17 06/16/17 06/17/17 17:20 17:51 00:10 WBC RBC Hgb Hct POC Hct MCV MCH RDW [place] % (Auto) [place] # Seg Neutrophils % Seg Neuts % (Manual) Lymphocytes % (Manual) Monocytes % (Manual) Nucleated RBC % Seg Neutrophils # Seg Neutrophils # Man Lymphocytes # (Manual) Monocytes # (Manual) Eosinophils # (Manual) Basophils # (Manual) PT INR POC ABG pH ABG pH POC ABG pCO2 POC ABG pO2 ABG pO2 ABG HCO3 ABG O2 Saturation ABG Hemoglobin POC Sodium POC Potassium Sodium Potassium Chloride 97.4 L Carbon Dioxide POC BUN BUN 35 H Creatinine 4.4 H Glucose 116 H POC Glucose 128 H 114 H Calcium ALT C-Reactive Protein Total Protein Albumin PTH Pre-Incision PTH Post-Excision 06/17/17 06/17/17 06/18/17 04:00 05:42 08:10 WBC 16.1 H RBC 3.55 L Hgb 8.4 L Hct 27.2 L POC Hct MCV 76 L MCH 24 L RDW 18.5 H [place] % (Auto) [place] # Seg Neutrophils % Seg Neuts % (Manual) Lymphocytes % (Manual) Monocytes % (Manual) Nucleated RBC % Seg Neutrophils # Seg Neutrophils # Man Lymphocytes # (Manual) Monocytes # (Manual) Eosinophils # (Manual) Basophils # (Manual) PT INR POC ABG pH ABG pH POC ABG pCO2 POC ABG pO2 ABG pO2 ABG HCO3 ABG O2 Saturation ABG Hemoglobin POC Sodium POC Potassium Sodium 136 L Potassium Chloride 94.5 L Carbon Dioxide POC BUN BUN 44 H Creatinine 5.3 H Glucose 107 H POC Glucose 110 H Calcium ALT C-Reactive Protein Total Protein Albumin PTH Pre-Incision PTH Post-Excision 06/18/17 06/19/17 06/19/17 08:10 05:23 07:14 WBC 19.3 H RBC Hgb 9.2 L Hct 30.1 L POC Hct MCV 77 L MCH 23 L RDW 18.2 H [place] % (Auto) [place] # Seg Neutrophils % Seg Neuts % (Manual) Lymphocytes % (Manual) Monocytes % (Manual) Nucleated RBC % Seg Neutrophils # Seg Neutrophils # Man Lymphocytes # (Manual) Monocytes # (Manual) Eosinophils # (Manual) Basophils # (Manual) PT INR POC ABG pH ABG pH POC ABG pCO2 POC ABG pO2 ABG pO2 116.2 H ABG HCO3 28.5 H ABG O2 Saturation ABG Hemoglobin 9.1 L POC Sodium POC Potassium Sodium 134 L Potassium Chloride 91.6 L Carbon Dioxide POC BUN BUN 68 H Creatinine 7.2 H Glucose POC Glucose Calcium 10.3 H ALT 6 L C-Reactive Protein Total Protein 5.9 L Albumin 2.8 L PTH Pre-Incision PTH Post-Excision 06/19/17 06/19/17 06/20/17 07:15 23:37 04:40 WBC RBC Hgb Hct POC Hct MCV MCH RDW [place] % (Auto) [place] # Seg Neutrophils % Seg Neuts % (Manual) Lymphocytes % (Manual) Monocytes % (Manual) Nucleated RBC % Seg Neutrophils # Seg Neutrophils # Man Lymphocytes # (Manual) Monocytes # (Manual) Eosinophils # (Manual) Basophils # (Manual) PT INR POC ABG pH ABG pH POC ABG pCO2 POC ABG pO2 ABG pO2 ABG HCO3 ABG O2 Saturation ABG Hemoglobin POC Sodium POC Potassium Sodium 135 L Potassium Chloride 94.3 L Carbon Dioxide POC BUN BUN 41 H Creatinine 5.4 H Glucose 117 H POC Glucose 152 H 140 H Calcium 10.3 H ALT C-Reactive Protein Total Protein Albumin PTH Pre-Incision PTH Post-Excision 06/21/17 06/21/17 06/21/17 05:13 05:45 05:45 WBC 18.8 H RBC 3.54 L Hgb 8.2 L Hct 27.6 L POC Hct MCV 78 L MCH 23 L RDW 18.6 H [place] % (Auto) [place] # Seg Neutrophils % Seg Neuts % (Manual) Lymphocytes % (Manual) Monocytes % (Manual) Nucleated RBC % Seg Neutrophils # Seg Neutrophils # Man Lymphocytes # (Manual) Monocytes # (Manual) Eosinophils # (Manual) Basophils # (Manual) PT 15.2 H INR 1.14 H POC ABG pH ABG pH POC ABG pCO2 POC ABG pO2 ABG pO2 ABG HCO3 ABG O2 Saturation ABG Hemoglobin POC Sodium POC Potassium Sodium Potassium Chloride Carbon Dioxide POC BUN BUN Creatinine Glucose POC Glucose 140 H Calcium ALT C-Reactive Protein Total Protein Albumin PTH Pre-Incision PTH Post-Excision 06/21/17 06/21/17 05:45 08:28 WBC RBC Hgb Hct POC Hct MCV MCH RDW [place] % (Auto) [place] # Seg Neutrophils % Seg Neuts % (Manual) Lymphocytes % (Manual) Monocytes % (Manual) Nucleated RBC % Seg Neutrophils # Seg Neutrophils # Man Lymphocytes # (Manual) Monocytes # (Manual) Eosinophils # (Manual) Basophils # (Manual) PT INR POC ABG pH ABG pH POC ABG pCO2 POC ABG pO2 ABG pO2 ABG HCO3 ABG O2 Saturation ABG Hemoglobin POC Sodium POC Potassium Sodium Potassium Chloride 95.5 L Carbon Dioxide POC BUN BUN 38 H Creatinine 4.8 H Glucose 126 H POC Glucose Calcium ALT C-Reactive Protein 13.60 H Total Protein Albumin PTH Pre-Incision PTH Post-Excision
[2017-06-21] MEDS ORDERED: NEO SYNEPHRINE ONE (14:12)
[2017-06-21] MEDS ORDERED: NACL 0.9% 100 ML ONE (14:12)
[2017-06-21] MEDS ORDERED: PANCREAZE DR 10,500 UNIT FEEDTUBE PRN (14:23)
[2017-06-21] MEDS ORDERED: SODIUM BICARBONATE FEEDTUBE PRN (14:23)
[2017-06-21] MEDS ORDERED: SIMPLE SYRUP FEEDTUBE PRN ×2 (14:23)
--- NOTE | 2017-06-21 14:28 | Post Operative Note ---
Pre-op diagnosis: resp failure, inability to feed Post-op diagnosis: same Procedure: open Trach, PEG placement. Anesthesia: SANJU Surgeon: STEFANIE HERNANDEZ Play Leader: BERNIE LUEVANO Estimated blood loss: none Pathology: none Condition: stable Disposition: ICU
--- NOTE | 2017-06-21 15:05 | Progress Note ---
Assessment and Plan Assessment: Acute CVA / AMS - head CT showed acute stroke in MCA, no hemorrhage; TTE revealed no cardiac source for CVA Thrombus in distal L ICA and MCA - per chart, neuro currently recommends against heparin gtt in setting of acute CVA and risk of conversion to hemorrhagic CVA. Hyperparathyroidism, s/p subtotal parathyroidectomy on 06/04/2017 CMP - EF 40-45%; no current clinical evidence of acute heart failure Acute on chronic respiratory failure - for trach HTN ESRD on HD Hypokalemia Hypocalcemia Leukocytosis - pt with intermittent low grade fever; CXR with NAF Morbid obesity History of breast cancer status post mastectomy Plan: Cont present cardiac regimen. BB and ACEI/ARB held in setting of hypotension. Cont ASA and statin. Currently stable cardiac status. For trach today, possible PEG. Will need LTAC following trach and PEG. The patient has been seen in conjunction with Dr. Quinonez who agrees with the assessment and plan of care. Subjective Date of service: 06/21/17 Principal diagnosis: ARM/MV/Post hyperparathy./ESRD Interval history: Pt remains intubated. No acute events. VSS. Objective Last Vital Signs Temp 98.6 F 06/21/17 12:00 Pulse 62 06/21/17 12:30 Resp 13 06/21/17 12:30 BP 93/39 06/21/17 12:30 Pulse Ox 99 06/21/17 12:30 - Physical Examination General: Other (intubated) HEENT: Positive: PERRL, Mucus Membranes Moist Neck: Positive: neck supple, trachea midline Cardiac: Positive: Reg Rate and Rhythm, S1/S2 Lungs: Positive: Ventilated Respirations Neuro: Positive: Weakness (right-sided), Other (intubated) Abdomen: Positive: Unremarkable. Negative: Tender Skin: Positive: Clear. Negative: Rash, Wound Musculoskeletal: No Fluid Collection, No Pain, Normal Range of Motion Extremities: Absent: edema - Labs and Meds Coagulation 06/21/17 Range/Units 05:45 PT 15.2 H (12.2-14.9) Sec. INR 1.14 H (0.87-1.13) CBC 06/21/17 Range/Units 05:45 WBC 18.8 H (4.5-11.0) K/mm3 RBC 3.54 L (3.65-5.03) M/mm3 Hgb 8.2 L (10.1-14.3) gm/dl Hct 27.6 L (30.3-42.9) % Plt Count 218 (140-440) K/mm3 Comprehensive Metabolic Panel 06/21/17 Range/Units 05:45 Sodium 137 (137-145) mmol/L Potassium 3.9 (3.6-5.0) mmol/L Chloride 95.5 L (98-107) mmol/L Carbon Dioxide 28 (22-30) mmol/L BUN 38 H (7-17) mg/dL Creatinine 4.8 H (0.7-1.2) mg/dL Glucose 126 H (65-100) mg/dL Calcium 10.0 (8.4-10.2) mg/dL - Imaging and Cardiology EKG: image reviewed Echo: report reviewed (LV mildly dilated, mild to moderate LVH, EF 40-45%, LA moderate to severely dilated, mild MR, mild AR, mild TR. ) - EKG Sinus rhythms and dysrhythmias: sinus rhythm
--- NOTE | 2017-06-21 15:19 | Progress Note ---
Assessment and Plan /Acute hypoxic respiratory failure on MV > 96 hours - re-intubated, continue vent and planned for trach today - cont periodic breathing treatment, pulmonary following /Acute left MCA stroke with right-sided weakness - Neurology consult appreciated -MR brain showed large left MCA acute infarct - on aspirin and statin - Cardiology consulted to rule out cardiac cause of stroke - Vascular surgery consulted no intervention needed - received mannitol for IC edema /Sepsis -may have Aspiration PNA which is obscured by pulmonary edema -Blood cx reviewed, growing gram variable rods, obtained tracheal aspirate cx -Now on zosyn and vancomycin, ID following /Metabolic Enchephalopathy -due to CVA and IC edema, imrpoving -s/p mannitol /Status post subtotal parathyroidectomy/Hypocalcemia - Continue postop care per surgery - continue to replete calcium as needed /End-stage renal disease on hemodialysis - Continue hemodialysis as scheduled per nephrology /Hyperkalemia -improved with HD /Hypertension - Continue When necessary medication /History of breast cancer status post mastectomy - Stable /Morbid obesity with BMI of 47.8, - Nutrition input appreciated /Moderate malnutrition -continue tube feeds /Hyponatremia -reduced free water via G tube, and received NS, now improved /Hypotension resolved with IVF bolus now on midodrine The high probability of a clinically significant, sudden or life threatening deterioration of the [respiratory] system(s) required my full and direct attention, intervention and personal management. The aggregate critical care time was [32] minutes. This time is in addition to time spent performing reported procedures but includes the following: [x] Data Review and interpretation [x] Patient assessment and monitoring of vital signs [x] Documentation [x] Medication orders and managementPatient would benefit by outpatient bariatric surgical evaluation for weight reduction program and medically stable CODE STATUS FULL Brief history: 66-year-old female patient significant past medical history of hypertension and obstructive sleep apnea, ESRD on hemodialysis, breast cancer status post mastectomy underwent elective total parathyroidectomy and was admitted to ICU with respiratory failure requiring intubation, she unfortunately found to have a left MCA stroke. Unable to wean off from vent, plan to have trach and PEG. Microbiology 06/21/17 08:28 Peripheral/Venous Blood Culture - Preliminary Culture in Progress 06/21/17 08:55 Peripheral/Venous Blood Culture - Preliminary Culture in Progress 06/20/17 19:30 Tracheal Aspirate Sputum Culture - Preliminary 06/19/17 22:15 Peripheral/Venous Blood Culture - Preliminary Gram Negative Fernando 06/04/17 23:00 Tracheal Aspirate Sputum Culture - Final Active meds: Generic Name Dose Route Start Last Admin Trade Name Skylar PRN Reason Stop Dose Admin Lipase/Protease/Amylase 1 each 06/07/17 12:31 Pancrexavi [place] 10,500 Unit FEEDTUBE PRN PRN For Clogged Feeding Tube Aspirin 81 mg 06/08/17 19:00 06/21/17 16:15 Baby Aspirin PO Not Given QDAY [facility] Atorvastatin Calcium 40 mg 06/08/17 22:00 06/22/17 00:00 Lipitor PO 40 mg QHS [facility] Administration Bisacodyl 10 mg 06/04/17 16:35 06/14/17 18:10 Dulcolax [place] 10 mg QDAY PRN Administration constipation unrelieved by MOM Calcitriol 0.5 mcg 06/07/17 10:00 06/21/17 16:28 Rocaltrol PO 0.5 mcg QDAY [facility] Administration Calcium Carbonate/Glycine 1,000 mg 06/06/17 14:00 06/22/17 01:07 Tums PO Not Given TID [facility] Famotidine 20 mg 06/10/17 10:00 06/21/17 16:28 Pepcid PO 20 mg DAILY [facility] Administration Heparin Sodium (Porcine) 5,000 unit 06/09/17 22:00 06/22/17 00:09 Heparin SUB-Q Not Given Q12HR [facility] Hydralazine HCl 5 mg 06/08/17 01:31 06/11/17 12:42 Apresoline IV 5 mg Q6HR PRN Administration SBP>160 Hydrophilic Ointment 1 applic 06/04/17 17:25 06/05/17 17:46 Vaseline Lip Therapy TP 1 applic Q2HR PRN Administration Dry Lips Fentanyl Citrate 2,000 mcg in 100 mls @ 6.124 mls/hr 06/11/17 16:00 Fentanyl Drip Premix IV TITR JANE Protocol 1 MCG/KG/HR Sodium Chloride 100 mls @ 999 mls/hr 06/17/17 08:12 Nacl 0.9% IV KAYLA PRN Hypotension Piperacillin Sod/Tazobactam Sod 2.25 gm in 50 mls @ 100 mls/hr 06/19/17 22:00 06/22/17 06:18 Zosyn/Ns 2.25 Gm/50ml IV 100 mls/hr Q8HR JANE Administration Protocol Sodium Chloride 100 mls @ 999 mls/hr 06/20/17 12:45 06/20/17 22:28 Nacl 0.9% IV 999 mls/hr KAYLA PRN Administration Hypotension Midodrine 2.5 mg 06/13/17 11:30 06/22/17 06:20 Proamatine PO 2.5 mg Q8HR JANE Administration Multi-Ingred Cream/Lotion/Oil/Oint 1 applic 06/11/17 15:36 Artificial Tears Ophth Oint OU Q4HR PRN Dry Eye(s) Simple Syrup 15 ml 06/07/17 12:31 Simple Syrup FEEDTUBE PRN PRN Hypoglycemia Simple Syrup 30 ml 06/07/17 12:31 Simple Syrup FEEDTUBE PRN PRN Hypoglycemia Sodium Bicarbonate 325 mg 06/07/17 12:31 Sodium Bicarbonate FEEDTUBE PRN PRN For Clogged Feeding Tube Sodium Chloride 1 ml 06/11/17 16:00 Nacl 0.9% 500 Ml IV DIRECT JANE Vancomycin HCl 1 each 06/20/17 14:00 Vancomycin Pharmacy To Dose IV PKCONSULT [facility] Protocol Hospitalist Physical - Physical exam Narrative exam: General.: Appears well, no distress, nontoxic HEENT: Moist mucous membranes, extraocular muscles intact, no lymphadenopathy Neck: supple Cardiac: S1-S2 heard Lungs: clear to auscultation bilaterally Abdomen: soft , nontender, nondistended, bowel sounds positive Extremities: no edema clubbing or cyanosis Skin: no rash or lesions Neurologic: Intubated, Patient is only moving left side of her body responds to painful stimuli, right side is not moving. does not obey commands Psych: appropriate behavior, appropriate mood, corporative, judgment intact Subjective Date of service: 06/21/17 Principal diagnosis: ARM/MV/Post hyperparathy./ESRD Interval history: pt seen and examined Family at bedside updated remains intubated plan for trach and PEG today Objective - Constitutional Vitals: Vital Signs - 12hr 06/21/17 06/21/17 06/21/17 03:30 03:45 04:00 Temperature Pulse Rate 67 69 70 Pulse Rate [ From Monitor] Respiratory 16 15 18 Rate Blood Pressure 95/38 95/38 100/42 O2 Sat by Pulse 100 100 100 Oximetry 1006/21/17 06/21/17 04:15 04:30 04:45 Temperature Pulse Rate 69 70 65 Pulse Rate [ From Monitor] Respiratory 17 16 13 Rate Blood Pressure 100/42 100/42 100/42 O2 Sat by Pulse 99 100 99 Oximetry 06/21/17 06/21/17 06/21/17 05:00 05:15 05:30 Temperature Pulse Rate 69 70 68 Pulse Rate [ From Monitor] Respiratory 18 20 18 Rate Blood Pressure 98/38 98/38 94/37 O2 Sat by Pulse 100 100 99 Oximetry 06/21/17 06/21/17 06/21/17 05:45 06:00 06:15 Temperature Pulse Rate 68 68 66 Pulse Rate [ From Monitor] Respiratory 15 23 12 Rate Blood Pressure 94/37 94/42 94/42 O2 Sat by Pulse 99 99 99 Oximetry 06/21/17 06/21/17 06/21/17 06:22 06:30 06:45 Temperature Pulse Rate 68 66 67 Pulse Rate [ From Monitor] Respiratory 17 24 Rate Blood Pressure 94/42 94/42 94/42 O2 Sat by Pulse 100 100 100 Oximetry 06/21/17 06/21/17 06/21/17 07:00 07:15 07:30 Temperature Pulse Rate 66 67 65 Pulse Rate [ From Monitor] Respiratory 21 15 17 Rate Blood Pressure 99/36 99/36 97/40 O2 Sat by Pulse 100 100 100 Oximetry 06/21/17 06/21/17 06/21/17 07:45 07:48 08:00 Temperature 97.7 F Pulse Rate 66 64 Pulse Rate [ 66 From Monitor] Respiratory 17 27 H Rate Blood Pressure 97/40 90/44 O2 Sat by Pulse 100 100 100 Oximetry 06/21/17 06/21/17 06/21/17 08:15 08:22 08:30 Temperature Pulse Rate 59 L 62 59 L Pulse Rate [ From Monitor] Respiratory 12 18 Rate Blood Pressure 90/44 90/44 98/39 O2 Sat by Pulse 100 100 99 Oximetry 06/21/17 06/21/17 06/21/17 08:45 09:00 09:15 Temperature Pulse Rate 61 63 62 Pulse Rate [ From Monitor] Respiratory 12 18 16 Rate Blood Pressure 98/39 82/46 82/46 O2 Sat by Pulse 100 99 98 Oximetry 06/21/17 06/21/17 06/21/17 09:30 09:45 10:00 Temperature Pulse Rate 65 62 64 Pulse Rate [ From Monitor] Respiratory 19 12 16 Rate Blood Pressure 90/43 90/43 88/38 O2 Sat by Pulse 100 98 99 Oximetry 06/21/17 06/21/17 06/21/17 10:15 10:30 10:45 Temperature Pulse Rate 63 64 66 Pulse Rate [ From Monitor] Respiratory 14 16 13 Rate Blood Pressure 88/38 93/41 93/41 O2 Sat by Pulse 98 99 100 Oximetry 06/21/17 06/21/17 06/21/17 11:00 11:15 11:30 Temperature Pulse Rate 67 65 63 Pulse Rate [ From Monitor] Respiratory 17 12 15 Rate Blood Pressure 94/41 94/41 90/40 O2 Sat by Pulse 99 99 99 Oximetry 06/21/17 06/21/17 06/21/17 11:45 12:00 12:14 Temperature 98.6 F Pulse Rate 64 62 Pulse Rate [ From Monitor] Respiratory 13 16 Rate Blood Pressure 90/40 98/44 O2 Sat by Pulse 98 99 100 Oximetry 06/21/17 06/21/17 06/21/17 12:15 12:30 14:37 Temperature 97.9 F Pulse Rate 85 62 73 Pulse Rate [ From Monitor] Respiratory 18 13 18 Rate Blood Pressure 98/44 93/39 92/49 O2 Sat by Pulse 99 99 99 Oximetry 06/21/17 06/21/17 06/21/17 14:45 14:50 14:55 Temperature Pulse Rate 74 72 71 Pulse Rate [ From Monitor] Respiratory 16 16 21 Rate Blood Pressure 97/43 115/58 111/46 O2 Sat by Pulse 100 98 100 Oximetry - Labs CBC & Chem 7: 06/21/17 05:45 06/21/17 05:45 Labs: Abnormal lab results 06/21/17 06/21/17 06/21/17 Range/Units 05:13 05:45 05:45 WBC 18.8 H (4.5-11.0) K/mm3 RBC 3.54 L (3.65-5.03) M/mm3 Hgb 8.2 L (10.1-14.3) gm/dl Hct 27.6 L (30.3-42.9) % MCV 78 L (79-97) fl MCH 23 L (28-32) pg RDW 18.6 H (13.2-15.2) % PT 15.2 H (12.2-14.9) Sec. INR 1.14 H (0.87-1.13) Chloride (98-107) mmol/L BUN (7-17) mg/dL Creatinine (0.7-1.2) mg/dL Glucose (65-100) mg/dL POC Glucose 140 H (70-105) C-Reactive Protein (0.00-1.30) mg/dL 06/21/17 06/21/17 Range/Units 05:45 08:28 WBC (4.5-11.0) K/mm3 RBC (3.65-5.03) M/mm3 Hgb (10.1-14.3) gm/dl Hct (30.3-42.9) % MCV (79-97) fl MCH (28-32) pg RDW (13.2-15.2) % PT (12.2-14.9) Sec. INR (0.87-1.13) Chloride 95.5 L (98-107) mmol/L BUN 38 H (7-17) mg/dL Creatinine 4.8 H (0.7-1.2) mg/dL Glucose 126 H (65-100) mg/dL POC Glucose (70-105) C-Reactive Protein 13.60 H (0.00-1.30) mg/dL
[2017-06-21] MEDS: BABY ASPIRIN PO SCH (16:15)
[2017-06-21] MEDS: ROCALTROL PO SCH (16:28)
[2017-06-21] MEDS: PEPCID PO SCH (16:28)
--- NOTE | 2017-06-21 20:59 | Operative Report ---
PREOPERATIVE DIAGNOSES: Respiratory failure, inability to feed. POSTOPERATIVE DIAGNOSES: Respiratory failure, inability to feed. PROCEDURE: Open tracheostomy and PEG placement. SURGEON: Sascha Singh M.D. BOLT SORTER: Keyla Hutton. ANESTHESIA: General. ESTIMATED BLOOD LOSS: Minimal. COMPLICATIONS: None. DRAINS: None. SPECIMEN: None. The patient tolerated the procedure well. FINDINGS: Trach done without difficulty as well as PEG. INDICATIONS: A 66-year-old female who is status post parathyroidectomy, had a postoperative stroke, is vent dependence and needs a trach and a PEG for management of procedure. The patient was taken to the OR and placed supine on the operating table. Once general anesthesia was obtained, neck was extended with a help of shoulder roll. Neck and chest were prepped and draped in sterile fashion. Previous transverse incision was opened approximately 5 cm long incision was taken to subcutaneous tissue through the strap muscles. The sutures in the strap muscles were incised and the thyroid and trachea were properly exposed. Muscle tissues were fused together, but easily palpable trachea. It was difficult to kind of get into the trachea area, right on top of the trachea; however, easily palpable. At this point, I elected to do a percutaneous tracheostomy through this site. A needle was placed in the trachea under good aspiration of air, I could feel the ET tube easily. A guidewire was fed into the trachea distally. The ET tube was moved back just proximal to the guide wire placement. This tract was dilated with appropriate apparatus and a size 8 tracheostomy tube was then placed in the trachea, found to have good end-tidal CO2 and good maintenance of air. One cuff was insufflated. The soft tissue around the tube was then approximated with 3-0 Vicryl and the skin was approximated in subcuticular technique. The tracheal tube was then secured to the skin with 2-0 Prolene and sponges were placed on the tracheostomy site. As well as the collar for the tracheostomy was placed around the neck. After this was completed, the patient was then draped and prepped. Endoscopy was then passed to oropharynx into the esophagus and stomach. The stomach was then dilated, was insufflated and palpated along the abdominal wall, I could see where the indentation of the stomach was. This area was then prepped and draped. After local anesthetic applied, a small stab incision approximately a centimeter in length was placed in the site and with a needle placed directly into the stomach under direct visualization. A Guidewire was fed through the needle into the stomach. The guidewire was then grasped via endoscopy. The guide wire was then brought out through the esophagus and oropharynx. A size 20-Italian PEG tube was then brought via the oropharynx into the stomach through the esophagus under direct visualization. The patient with re-endoscopy, the PEG tube was found to be in good position and pictures were taken. The tube was then secured to the anterior abdominal wall with apparatus applied. The patient tolerated the procedure well. JOB# [id number] KIET/BARBI
[2017-06-22] MEDS: ZOSYN/NS 2.25 GM/50ML 2.25 GM/50 ML BAG IV SCH ×2 (00:06→06:18)
[2017-06-22] MEDS: HEPARIN SUB-Q SCH ×3 (00:09→22:02)
[2017-06-22] MEDS: PROAMATINE PO SCH ×5 (00:12→22:02)
[2017-06-22] MEDS: TUMS PO SCH ×4 (01:07→19:58)
[2017-06-22 05:15] LABS: ABG Base Excess 3.7 mmol/L (-2.0-3.0); ABG HCO3 28.2 mmol/L (20.0-26.0); ABG Oxygen Saturation 98.1 % (95.0-99.0); ABG PCO2 42.6 mm Hg; ABG PH 7.438 pH Units (7.350-7.450); ABG PO2 110.7 mm Hg (80.0-90.0)
--- NOTE | 2017-06-22 08:37 | Progress Note ---
Assessment and Plan 66 y/o female with post-op respiratory failure, likely from pulmonary edema and possible airway edema with end stage renal disease, extubated then reintubated, suffered stroke now with encephalopathy, status post trach and peg. 1. Trached on 06/21/[address] Singh. Per him, there is a small air leak around the trach as she previously had surgery for her parathyroid. This should resolve and as long as the patient has good volumes there is no need to keep inflating the cuff on the trach if the leak is heard. 2. CM working on placement now that trach and peg are in place 3. Patient continues HD, renal is following 4. Neurology, I assume has signed off as no new notes since 06/12 5. ABG done this am is good, Not sure why it was done. Patient has been tolerating PSV for several days now. Only trached because of mental status. Will continue daily PSV trials 6. Gram negative kulwant in sputum and proteus in blood. ID following and managing abx. CCT 31 minutes. Subjective Date of service: 06/22/17 Principal diagnosis: ARM/MV/Post hyperparathy./ESRD Interval history: Trach and Peg placed on yesterday. Tolerated well with no issues. Spoke with Surgery post op and given prior/recent surgery in area, has a small air leak but this will subside once granulation tissue forms. Objective Vital Signs - 12hr 06/21/17 06/21/17 06/21/17 20:45 21:00 21:15 Temperature Pulse Rate 71 74 76 Respiratory 19 Rate Blood Pressure 132/47 133/59 133/59 O2 Sat by Pulse 54 L Oximetry O2 Sat by Pulse Oximetry [ Anterior Bilateral Throughout] O2 Sat by Pulse Oximetry [ Assessment] 06/21/17 06/21/17 06/21/17 21:30 21:45 22:00 Temperature Pulse Rate 77 78 81 Respiratory 19 Rate Blood Pressure 131/50 126/59 112/51 O2 Sat by Pulse 99 Oximetry O2 Sat by Pulse Oximetry [ Anterior Bilateral Throughout] O2 Sat by Pulse Oximetry [ Assessment] 06/21/17 06/21/17 06/21/17 22:15 22:30 22:40 Temperature Pulse Rate 84 84 Respiratory Rate Blood Pressure 106/46 99/46 O2 Sat by Pulse Oximetry O2 Sat by Pulse Oximetry [ Anterior Bilateral Throughout] O2 Sat by Pulse 100 Oximetry [ Assessment] 06/21/17 06/21/17 06/21/17 22:45 23:00 23:01 Temperature 98.4 F Pulse Rate 76 76 Respiratory 19 Rate Blood Pressure 106/50 119/50 O2 Sat by Pulse Oximetry O2 Sat by Pulse Oximetry [ Anterior Bilateral Throughout] O2 Sat by Pulse Oximetry [ Assessment] 06/21/17 06/21/17 06/21/17 23:15 23:30 23:40 Temperature 98.4 F Pulse Rate 77 80 81 Respiratory 17 Rate Blood Pressure 119/50 107/53 108/42 O2 Sat by Pulse Oximetry O2 Sat by Pulse 100 Oximetry [ Anterior Bilateral Throughout] O2 Sat by Pulse Oximetry [ Assessment] 06/22/17 06/22/17 06/22/17 00:00 00:40 01:00 Temperature Pulse Rate 84 89 75 Respiratory 17 16 Rate Blood Pressure 94/38 84/44 O2 Sat by Pulse 100 98 100 Oximetry O2 Sat by Pulse Oximetry [ Anterior Bilateral Throughout] O2 Sat by Pulse Oximetry [ Assessment] 06/22/17 06/22/17 06/22/17 02:00 03:00 03:48 Temperature 98.2 F Pulse Rate 74 77 Respiratory 16 16 Rate Blood Pressure 100/42 89/44 O2 Sat by Pulse 100 99 Oximetry O2 Sat by Pulse Oximetry [ Anterior Bilateral Throughout] O2 Sat by Pulse Oximetry [ Assessment] 06/22/17 06/22/17 06/22/17 04:00 04:13 05:00 Temperature Pulse Rate 86 72 80 Respiratory 16 16 Rate Blood Pressure 106/46 107/52 116/53 O2 Sat by Pulse 86 99 100 Oximetry O2 Sat by Pulse Oximetry [ Anterior Bilateral Throughout] O2 Sat by Pulse Oximetry [ Assessment] 06/22/17 06/22/17 06/22/17 06:00 07:00 07:49 Temperature Pulse Rate 77 70 70 Respiratory 16 16 Rate Blood Pressure 107/52 109/52 109/52 O2 Sat by Pulse 100 100 69 L Oximetry O2 Sat by Pulse Oximetry [ Anterior Bilateral Throughout] O2 Sat by Pulse Oximetry [ Assessment] 06/22/17 08:00 Temperature 99.1 F Pulse Rate 71 Respiratory 15 Rate Blood Pressure 109/48 O2 Sat by Pulse 100 Oximetry O2 Sat by Pulse Oximetry [ Anterior Bilateral Throughout] O2 Sat by Pulse Oximetry [ Assessment] Constitutional: no acute distress, other (eyes will open if you call her name. Will not follow commands) Eyes: non-icteric ENT: other (orally intubated) Neck: supple, no JVD, other (Fresh trach, midline, Clean Dry and Intact) Effort: normal Ascultation: Bilateral: clear, diminished breath sounds Percussion: Bilateral: not dull Cardiovascular: regular rate and rhythm Gastrointestinal: normoactive bowel sounds, soft, non-tender, non-distended, other (obese, now with peg tube in place) Integumentary: normal Extremities: no cyanosis, no edema, pink and warm, edema Psychiatric: mood appropriate, affect normal CBC and BMP: 06/21/17 05:45 06/21/17 05:45 ABG, PT/INR, D-dimer: ABG POC ABG pH 7.556 (7.35-7.45) H 06/11/17 06:51 ABG pH 7.438 pH Units (7.350-7.450) 06/22/17 05:00 POC ABG pCO2 34.8 (35-45) L 06/11/17 06:51 ABG pCO2 42.6 mm Hg 06/22/17 05:00 POC ABG pO2 125 (80-105) H 06/11/17 06:51 ABG pO2 110.7 mm Hg (80.0-90.0) H 06/22/17 05:00 POC ABG HCO3 30.9 06/11/17 06:51 POC ABG Total CO2 32 06/11/17 06:51 POC ABG O2 Sat 99 06/11/17 06:51 ABG O2 Saturation 98.1 % (95.0-99.0) 06/22/17 05:00 PT/INR, D-dimer PT 15.2 Sec. (12.2-14.9) H 06/21/17 05:45 INR 1.14 (0.87-1.13) H 06/21/17 05:45 Abnormal lab findings: Abnormal Labs 06/04/17 06/04/17 06/04/17 00:01 12:50 13:55 WBC 11.4 H RBC Hgb Hct POC Hct MCV 76 L MCH 23 L RDW 18.5 H [place] % (Auto) [place] # Seg Neutrophils % Seg Neuts % (Manual) 89.0 H Lymphocytes % (Manual) 6.0 L Monocytes % (Manual) Nucleated RBC % Seg Neutrophils # Seg Neutrophils # Man 10.1 H Lymphocytes # (Manual) 0.7 L Monocytes # (Manual) Eosinophils # (Manual) Basophils # (Manual) PT INR POC ABG pH ABG pH POC ABG pCO2 POC ABG pO2 ABG pO2 ABG HCO3 ABG O2 Saturation ABG Base Excess ABG Hemoglobin POC Sodium POC Potassium Sodium Potassium 5.1 H 5.2 H Chloride Carbon Dioxide POC BUN BUN 48 H Creatinine 6.2 H Glucose POC Glucose Calcium ALT C-Reactive Protein Total Protein Albumin PTH Pre-Incision PTH Post-Excision 06/04/17 06/04/17 06/04/17 13:55 16:10 16:16 WBC RBC Hgb Hct POC Hct 37 L MCV MCH RDW [place] % (Auto) [place] # Seg Neutrophils % Seg Neuts % (Manual) Lymphocytes % (Manual) Monocytes % (Manual) Nucleated RBC % Seg Neutrophils # Seg Neutrophils # Man Lymphocytes # (Manual) Monocytes # (Manual) Eosinophils # (Manual) Basophils # (Manual) PT INR POC ABG pH 7.306 L ABG pH POC ABG pCO2 58.7 H POC ABG pO2 338 H ABG pO2 ABG HCO3 ABG O2 Saturation ABG Base Excess ABG Hemoglobin POC Sodium 135 L POC Potassium 5.2 H Sodium Potassium Chloride Carbon Dioxide POC BUN 44 H BUN Creatinine Glucose POC Glucose 183 H Calcium ALT C-Reactive Protein Total Protein Albumin PTH Pre-Incision 641.9 H PTH Post-Excision 154.7 H 06/04/17 06/04/17 06/04/17 16:22 20:44 21:29 WBC RBC Hgb Hct POC Hct MCV MCH RDW [place] % (Auto) [place] # Seg Neutrophils % Seg Neuts % (Manual) Lymphocytes % (Manual) Monocytes % (Manual) Nucleated RBC % Seg Neutrophils # Seg Neutrophils # Man Lymphocytes # (Manual) Monocytes # (Manual) Eosinophils # (Manual) Basophils # (Manual) PT INR POC ABG pH 7.484 H ABG pH POC ABG pCO2 POC ABG pO2 ABG pO2 ABG HCO3 ABG O2 Saturation ABG Base Excess ABG Hemoglobin POC Sodium 137 L POC Potassium 5.3 H Sodium Potassium 5.2 H Chloride Carbon Dioxide POC BUN 45 H BUN 51 H Creatinine 6.5 H Glucose 119 H POC Glucose 176 H Calcium ALT C-Reactive Protein Total Protein Albumin PTH Pre-Incision PTH Post-Excision 06/05/17 06/05/17 06/05/17 03:31 11:44 11:44 WBC 13.4 H RBC Hgb Hct POC Hct MCV 75 L MCH 23 L RDW 18.2 H [place] % (Auto) [place] # Seg Neutrophils % Seg Neuts % (Manual) Lymphocytes % (Manual) Monocytes % (Manual) Nucleated RBC % Seg Neutrophils # Seg Neutrophils # Man Lymphocytes # (Manual) Monocytes # (Manual) Eosinophils # (Manual) Basophils # (Manual) PT INR POC ABG pH ABG pH POC ABG pCO2 POC ABG pO2 75 L ABG pO2 ABG HCO3 ABG O2 Saturation ABG Base Excess ABG Hemoglobin POC Sodium POC Potassium Sodium Potassium 5.8 H Chloride Carbon Dioxide POC BUN BUN 56 H Creatinine 7.0 H Glucose 111 H POC Glucose Calcium 8.2 L ALT C-Reactive Protein Total Protein 6.2 L Albumin 3.1 L PTH Pre-Incision PTH Post-Excision 06/06/17 06/06/17 06/07/17 05:07 07:13 03:53 WBC RBC Hgb Hct POC Hct MCV MCH RDW [place] % (Auto) [place] # Seg Neutrophils % Seg Neuts % (Manual) Lymphocytes % (Manual) Monocytes % (Manual) Nucleated RBC % Seg Neutrophils # Seg Neutrophils # Man Lymphocytes # (Manual) Monocytes # (Manual) Eosinophils # (Manual) Basophils # (Manual) PT INR POC ABG pH ABG pH POC ABG pCO2 POC ABG pO2 116 H 137 H ABG pO2 ABG HCO3 ABG O2 Saturation ABG Base Excess ABG Hemoglobin POC Sodium POC Potassium Sodium Potassium Chloride Carbon Dioxide POC BUN BUN 32 H Creatinine 4.9 H Glucose 115 H POC Glucose Calcium 7.9 L ALT C-Reactive Protein Total Protein 5.7 L Albumin 3.3 L PTH Pre-Incision PTH Post-Excision 06/07/17 06/07/17 06/07/17 05:21 05:21 16:54 WBC RBC Hgb Hct POC Hct MCV 75 L MCH 24 L RDW 18.7 H [place] % (Auto) [place] # Seg Neutrophils % Seg Neuts % (Manual) Lymphocytes % (Manual) Monocytes % (Manual) Nucleated RBC % Seg Neutrophils # Seg Neutrophils # Man Lymphocytes # (Manual) Monocytes # (Manual) Eosinophils # (Manual) Basophils # (Manual) PT INR POC ABG pH ABG pH POC ABG pCO2 POC ABG pO2 ABG pO2 ABG HCO3 ABG O2 Saturation ABG Base Excess ABG Hemoglobin POC Sodium POC Potassium Sodium Potassium 5.4 H Chloride Carbon Dioxide POC BUN BUN 52 H Creatinine 6.2 H Glucose 107 H POC Glucose 110 H Calcium 8.0 L ALT C-Reactive Protein Total Protein Albumin PTH Pre-Incision PTH Post-Excision 06/07/17 06/07/17 06/08/17 17:38 23:32 04:00 WBC RBC Hgb Hct POC Hct MCV 77 L MCH 23 L RDW 18.3 H [place] % (Auto) [place] # Seg Neutrophils % Seg Neuts % (Manual) 78.0 H Lymphocytes % (Manual) Monocytes % (Manual) Nucleated RBC % 3.0 H Seg Neutrophils # Seg Neutrophils # Man 7.8 H Lymphocytes # (Manual) Monocytes # (Manual) Eosinophils # (Manual) Basophils # (Manual) PT INR POC ABG pH 7.310 L ABG pH POC ABG pCO2 51.9 H POC ABG pO2 ABG pO2 ABG HCO3 ABG O2 Saturation ABG Base Excess ABG Hemoglobin POC Sodium POC Potassium Sodium Potassium Chloride Carbon Dioxide POC BUN BUN Creatinine Glucose POC Glucose 63 L Calcium ALT C-Reactive Protein Total Protein Albumin PTH Pre-Incision PTH Post-Excision 06/08/17 06/08/17 06/08/17 04:00 10:51 11:25 WBC RBC Hgb Hct POC Hct MCV MCH RDW [place] % (Auto) [place] # Seg Neutrophils % Seg Neuts % (Manual) Lymphocytes % (Manual) Monocytes % (Manual) Nucleated RBC % Seg Neutrophils # Seg Neutrophils # Man Lymphocytes # (Manual) Monocytes # (Manual) Eosinophils # (Manual) Basophils # (Manual) PT INR POC ABG pH 7.336 L ABG pH POC ABG pCO2 55.1 H POC ABG pO2 ABG pO2 ABG HCO3 ABG O2 Saturation ABG Base Excess ABG Hemoglobin POC Sodium POC Potassium Sodium Potassium Chloride 96.9 L Carbon Dioxide POC BUN BUN 29 H Creatinine 4.6 H Glucose POC Glucose 108 H Calcium 8.3 L ALT C-Reactive Protein Total Protein Albumin PTH Pre-Incision PTH Post-Excision 06/08/17 06/09/17 06/09/17 14:22 11:42 11:42 WBC RBC Hgb Hct POC Hct MCV 76 L MCH 24 L RDW 18.3 H [place] % (Auto) [place] # Seg Neutrophils % Seg Neuts % (Manual) 80.0 H Lymphocytes % (Manual) 10.0 L Monocytes % (Manual) Nucleated RBC % 2.0 H Seg Neutrophils # Seg Neutrophils # Man Lymphocytes # (Manual) 1.0 L Monocytes # (Manual) Eosinophils # (Manual) Basophils # (Manual) PT INR POC ABG pH ABG pH POC ABG pCO2 52.8 H POC ABG pO2 77 L ABG pO2 ABG HCO3 ABG O2 Saturation ABG Base Excess ABG Hemoglobin POC Sodium POC Potassium Sodium Potassium 5.4 H D Chloride 97.1 L Carbon Dioxide POC BUN BUN 58 H Creatinine 6.6 H Glucose POC Glucose Calcium 7.2 L ALT C-Reactive Protein Total Protein Albumin PTH Pre-Incision PTH Post-Excision 06/09/17 06/10/17 06/10/17 12:04 03:29 03:29 WBC 13.7 H RBC Hgb Hct POC Hct MCV 77 L MCH 24 L RDW 17.9 H [place] % (Auto) [place] # Seg Neutrophils % Seg Neuts % (Manual) 82.0 H Lymphocytes % (Manual) 7.0 L Monocytes % (Manual) Nucleated RBC % 6.0 H Seg Neutrophils # Seg Neutrophils # Man 11.2 H Lymphocytes # (Manual) 1.0 L Monocytes # (Manual) Eosinophils # (Manual) Basophils # (Manual) PT INR POC ABG pH ABG pH POC ABG pCO2 POC ABG pO2 ABG pO2 ABG HCO3 ABG O2 Saturation ABG Base Excess ABG Hemoglobin POC Sodium POC Potassium Sodium Potassium Chloride 94.2 L Carbon Dioxide POC BUN BUN 32 H Creatinine 4.6 H Glucose 106 H POC Glucose 106 H Calcium 8.0 L ALT C-Reactive Protein Total Protein Albumin PTH Pre-Incision PTH Post-Excision 06/10/17 06/11/17 06/11/17 05:27 06:00 06:00 WBC 11.8 H RBC Hgb Hct POC Hct MCV 77 L MCH 24 L RDW 18.3 H [place] % (Auto) [place] # Seg Neutrophils % Seg Neuts % (Manual) 88.0 H Lymphocytes % (Manual) 7.0 L Monocytes % (Manual) Nucleated RBC % 1.0 H Seg Neutrophils # Seg Neutrophils # Man 10.4 H Lymphocytes # (Manual) 0.8 L Monocytes # (Manual) Eosinophils # (Manual) Basophils # (Manual) PT INR POC ABG pH ABG pH POC ABG pCO2 POC ABG pO2 ABG pO2 ABG HCO3 ABG O2 Saturation ABG Base Excess ABG Hemoglobin POC Sodium POC Potassium Sodium Potassium Chloride Carbon Dioxide POC BUN BUN 53 H Creatinine 6.0 H Glucose POC Glucose 106 H Calcium 6.3 L D ALT C-Reactive Protein Total Protein Albumin PTH Pre-Incision PTH Post-Excision 06/11/17 06/11/17 06/11/17 06:51 12:10 16:54 WBC RBC Hgb Hct POC Hct MCV MCH RDW [place] % (Auto) [place] # Seg Neutrophils % Seg Neuts % (Manual) Lymphocytes % (Manual) Monocytes % (Manual) Nucleated RBC % Seg Neutrophils # Seg Neutrophils # Man Lymphocytes # (Manual) Monocytes # (Manual) Eosinophils # (Manual) Basophils # (Manual) PT INR POC ABG pH 7.556 H ABG pH POC ABG pCO2 34.8 L POC ABG pO2 125 H ABG pO2 ABG HCO3 ABG O2 Saturation ABG Base Excess ABG Hemoglobin POC Sodium POC Potassium Sodium Potassium Chloride Carbon Dioxide POC BUN BUN Creatinine Glucose POC Glucose 115 H 106 H Calcium ALT C-Reactive Protein Total Protein Albumin PTH Pre-Incision PTH Post-Excision 06/11/17 06/12/17 06/12/17 20:20 00:06 04:20 WBC RBC Hgb Hct POC Hct MCV MCH RDW [place] % (Auto) [place] # Seg Neutrophils % Seg Neuts % (Manual) Lymphocytes % (Manual) Monocytes % (Manual) Nucleated RBC % Seg Neutrophils # Seg Neutrophils # Man Lymphocytes # (Manual) Monocytes # (Manual) Eosinophils # (Manual) Basophils # (Manual) PT INR POC ABG pH ABG pH 7.512 H 7.514 H POC ABG pCO2 POC ABG pO2 ABG pO2 148.5 H 209.1 H ABG HCO3 ABG O2 Saturation 99.3 H ABG Base Excess ABG Hemoglobin POC Sodium POC Potassium Sodium Potassium Chloride Carbon Dioxide POC BUN BUN Creatinine Glucose POC Glucose 108 H Calcium ALT C-Reactive Protein Total Protein Albumin PTH Pre-Incision PTH Post-Excision 06/12/17 06/12/17 06/12/17 05:24 05:30 05:30 WBC 14.3 H RBC Hgb Hct POC Hct MCV 75 L MCH 24 L RDW 18.5 H [place] % (Auto) [place] # Seg Neutrophils % Seg Neuts % (Manual) 73.0 H Lymphocytes % (Manual) 6.0 L Monocytes % (Manual) 9.0 H Nucleated RBC % 1.0 H Seg Neutrophils # Seg Neutrophils # Man 10.4 H Lymphocytes # (Manual) 0.9 L Monocytes # (Manual) 1.3 H Eosinophils # (Manual) Basophils # (Manual) PT INR POC ABG pH ABG pH POC ABG pCO2 POC ABG pO2 ABG pO2 ABG HCO3 ABG O2 Saturation ABG Base Excess ABG Hemoglobin POC Sodium POC Potassium Sodium 131 L D Potassium Chloride 90.6 L Carbon Dioxide POC BUN BUN 51 H Creatinine 6.5 H Glucose POC Glucose 109 H Calcium ALT C-Reactive Protein Total Protein Albumin PTH Pre-Incision PTH Post-Excision 06/12/17 06/13/17 06/13/17 11:46 04:15 04:55 WBC 17.9 H RBC Hgb Hct POC Hct MCV 75 L MCH 24 L RDW 18.5 H [place] % (Auto) [place] # Seg Neutrophils % Seg Neuts % (Manual) 75.0 H Lymphocytes % (Manual) 6.0 L Monocytes % (Manual) 9.0 H Nucleated RBC % Seg Neutrophils # Seg Neutrophils # Man 13.4 H Lymphocytes # (Manual) 1.1 L Monocytes # (Manual) 1.6 H Eosinophils # (Manual) 0.5 H Basophils # (Manual) 0.2 H PT INR POC ABG pH ABG pH POC ABG pCO2 POC ABG pO2 ABG pO2 131.0 H ABG HCO3 ABG O2 Saturation ABG Base Excess ABG Hemoglobin 10.5 L POC Sodium POC Potassium Sodium Potassium Chloride Carbon Dioxide POC BUN BUN Creatinine Glucose POC Glucose 116 H Calcium ALT C-Reactive Protein Total Protein Albumin PTH Pre-Incision PTH Post-Excision 06/13/17 06/13/17 06/14/17 04:55 17:23 04:30 WBC 17.8 H RBC Hgb 9.7 L Hct POC Hct MCV 76 L MCH 24 L RDW 18.3 H [place] % (Auto) [place] # Seg Neutrophils % Seg Neuts % (Manual) 74.0 H Lymphocytes % (Manual) 6.0 L Monocytes % (Manual) 9.0 H Nucleated RBC % Seg Neutrophils # Seg Neutrophils # Man 13.2 H Lymphocytes # (Manual) 1.1 L Monocytes # (Manual) 1.6 H Eosinophils # (Manual) Basophils # (Manual) PT INR POC ABG pH ABG pH POC ABG pCO2 POC ABG pO2 ABG pO2 ABG HCO3 ABG O2 Saturation ABG Base Excess ABG Hemoglobin POC Sodium POC Potassium Sodium 128 L Potassium Chloride 88.9 L Carbon Dioxide POC BUN BUN 73 H Creatinine 7.6 H Glucose 115 H POC Glucose 113 H Calcium 8.1 L ALT C-Reactive Protein Total Protein Albumin PTH Pre-Incision PTH Post-Excision 06/14/17 06/14/17 06/14/17 04:30 05:30 05:49 WBC RBC Hgb Hct POC Hct MCV MCH RDW [place] % (Auto) [place] # Seg Neutrophils % Seg Neuts % (Manual) Lymphocytes % (Manual) Monocytes % (Manual) Nucleated RBC % Seg Neutrophils # Seg Neutrophils # Man Lymphocytes # (Manual) Monocytes # (Manual) Eosinophils # (Manual) Basophils # (Manual) PT INR POC ABG pH ABG pH POC ABG pCO2 POC ABG pO2 ABG pO2 109.3 H ABG HCO3 ABG O2 Saturation ABG Base Excess ABG Hemoglobin 10.7 L POC Sodium POC Potassium Sodium 124 L Potassium Chloride 84.3 L Carbon Dioxide POC BUN BUN 86 H Creatinine 9.0 H Glucose 106 H POC Glucose 111 H Calcium 8.1 L ALT C-Reactive Protein Total Protein Albumin PTH Pre-Incision PTH Post-Excision 06/14/17 06/14/17 06/14/17 12:27 16:05 23:35 WBC RBC Hgb Hct POC Hct MCV MCH RDW [place] % (Auto) [place] # Seg Neutrophils % Seg Neuts % (Manual) Lymphocytes % (Manual) Monocytes % (Manual) Nucleated RBC % Seg Neutrophils # Seg Neutrophils # Man Lymphocytes # (Manual) Monocytes # (Manual) Eosinophils # (Manual) Basophils # (Manual) PT INR POC ABG pH ABG pH POC ABG pCO2 POC ABG pO2 ABG pO2 ABG HCO3 ABG O2 Saturation ABG Base Excess ABG Hemoglobin POC Sodium POC Potassium Sodium Potassium Chloride Carbon Dioxide POC BUN BUN Creatinine Glucose POC Glucose 139 H 133 H 147 H Calcium ALT C-Reactive Protein Total Protein Albumin PTH Pre-Incision PTH Post-Excision 06/15/17 06/15/17 06/15/17 05:05 06:00 06:00 WBC 21.4 H RBC Hgb 9.2 L Hct POC Hct MCV 77 L MCH 23 L RDW 18.8 H [place] % (Auto) [place] # Seg Neutrophils % Seg Neuts % (Manual) 86.0 H Lymphocytes % (Manual) 2.0 L Monocytes % (Manual) Nucleated RBC % 1.0 H Seg Neutrophils # Seg Neutrophils # Man 18.4 H Lymphocytes # (Manual) 0.4 L Monocytes # (Manual) 1.5 H Eosinophils # (Manual) Basophils # (Manual) PT INR POC ABG pH ABG pH POC ABG pCO2 POC ABG pO2 ABG pO2 ABG HCO3 ABG O2 Saturation ABG Base Excess ABG Hemoglobin POC Sodium POC Potassium Sodium 132 L D Potassium Chloride 91.5 L Carbon Dioxide POC BUN BUN 59 H Creatinine 6.6 H Glucose 116 H POC Glucose 145 H Calcium ALT C-Reactive Protein Total Protein Albumin PTH Pre-Incision PTH Post-Excision 06/15/17 06/15/17 06/15/17 12:04 17:55 23:40 WBC RBC Hgb Hct POC Hct MCV MCH RDW [place] % (Auto) [place] # Seg Neutrophils % Seg Neuts % (Manual) Lymphocytes % (Manual) Monocytes % (Manual) Nucleated RBC % Seg Neutrophils # Seg Neutrophils # Man Lymphocytes # (Manual) Monocytes # (Manual) Eosinophils # (Manual) Basophils # (Manual) PT INR POC ABG pH ABG pH POC ABG pCO2 POC ABG pO2 ABG pO2 ABG HCO3 ABG O2 Saturation ABG Base Excess ABG Hemoglobin POC Sodium POC Potassium Sodium Potassium Chloride Carbon Dioxide POC BUN BUN Creatinine Glucose POC Glucose 109 H 119 H 123 H Calcium ALT C-Reactive Protein Total Protein Albumin PTH Pre-Incision PTH Post-Excision 06/15/17 06/16/17 06/16/17 Unknown 06:00 08:45 WBC 21.9 H RBC Hgb 8.9 L Hct 29.0 L POC Hct MCV 77 L MCH 24 L RDW 18.1 H [place] % (Auto) 11.2 H [place] # 1.6 H Seg Neutrophils % 82.8 H Seg Neuts % (Manual) 78.0 H Lymphocytes % (Manual) 3.0 L Monocytes % (Manual) 9.0 H Nucleated RBC % 1.0 H Seg Neutrophils # 12.2 H Seg Neutrophils # Man 17.1 H Lymphocytes # (Manual) 0.7 L Monocytes # (Manual) 2.0 H Eosinophils # (Manual) Basophils # (Manual) 0.2 H PT INR POC ABG pH ABG pH POC ABG pCO2 POC ABG pO2 ABG pO2 115.7 H ABG HCO3 27.6 H ABG O2 Saturation ABG Base Excess ABG Hemoglobin 9.2 L POC Sodium POC Potassium Sodium Potassium 2.7 L* D Chloride 111.6 H Carbon Dioxide 17 L D POC BUN BUN 52 H Creatinine 5.0 H Glucose POC Glucose Calcium 5.3 L* D ALT C-Reactive Protein Total Protein Albumin PTH Pre-Incision PTH Post-Excision 06/16/17 06/16/17 06/16/17 09:25 11:00 12:07 WBC RBC Hgb Hct POC Hct MCV MCH RDW [place] % (Auto) [place] # Seg Neutrophils % Seg Neuts % (Manual) Lymphocytes % (Manual) Monocytes % (Manual) Nucleated RBC % Seg Neutrophils # Seg Neutrophils # Man Lymphocytes # (Manual) Monocytes # (Manual) Eosinophils # (Manual) Basophils # (Manual) PT INR POC ABG pH ABG pH POC ABG pCO2 POC ABG pO2 ABG pO2 102.0 H ABG HCO3 27.1 H ABG O2 Saturation ABG Base Excess ABG Hemoglobin 9.0 L POC Sodium POC Potassium Sodium Potassium Chloride 95.2 L Carbon Dioxide POC BUN BUN 60 H Creatinine 6.3 H Glucose 114 H POC Glucose 111 H Calcium 10.6 H D ALT C-Reactive Protein Total Protein Albumin PTH Pre-Incision PTH Post-Excision 06/16/17 06/16/17 06/17/17 17:20 17:51 00:10 WBC RBC Hgb Hct POC Hct MCV MCH RDW [place] % (Auto) [place] # Seg Neutrophils % Seg Neuts % (Manual) Lymphocytes % (Manual) Monocytes % (Manual) Nucleated RBC % Seg Neutrophils # Seg Neutrophils # Man Lymphocytes # (Manual) Monocytes # (Manual) Eosinophils # (Manual) Basophils # (Manual) PT INR POC ABG pH ABG pH POC ABG pCO2 POC ABG pO2 ABG pO2 ABG HCO3 ABG O2 Saturation ABG Base Excess ABG Hemoglobin POC Sodium POC Potassium Sodium Potassium Chloride 97.4 L Carbon Dioxide POC BUN BUN 35 H Creatinine 4.4 H Glucose 116 H POC Glucose 128 H 114 H Calcium ALT C-Reactive Protein Total Protein Albumin PTH Pre-Incision PTH Post-Excision 06/17/17 06/17/17 06/18/17 04:00 05:42 08:10 WBC 16.1 H RBC 3.55 L Hgb 8.4 L Hct 27.2 L POC Hct MCV 76 L MCH 24 L RDW 18.5 H [place] % (Auto) [place] # Seg Neutrophils % Seg Neuts % (Manual) Lymphocytes % (Manual) Monocytes % (Manual) Nucleated RBC % Seg Neutrophils # Seg Neutrophils # Man Lymphocytes # (Manual) Monocytes # (Manual) Eosinophils # (Manual) Basophils # (Manual) PT INR POC ABG pH ABG pH POC ABG pCO2 POC ABG pO2 ABG pO2 ABG HCO3 ABG O2 Saturation ABG Base Excess ABG Hemoglobin POC Sodium POC Potassium Sodium 136 L Potassium Chloride 94.5 L Carbon Dioxide POC BUN BUN 44 H Creatinine 5.3 H Glucose 107 H POC Glucose 110 H Calcium ALT C-Reactive Protein Total Protein Albumin PTH Pre-Incision PTH Post-Excision 06/18/17 06/19/17 06/19/17 08:10 05:23 07:14 WBC 19.3 H RBC Hgb 9.2 L Hct 30.1 L POC Hct MCV 77 L MCH 23 L RDW 18.2 H [place] % (Auto) [place] # Seg Neutrophils % Seg Neuts % (Manual) Lymphocytes % (Manual) Monocytes % (Manual) Nucleated RBC % Seg Neutrophils # Seg Neutrophils # Man Lymphocytes # (Manual) Monocytes # (Manual) Eosinophils # (Manual) Basophils # (Manual) PT INR POC ABG pH ABG pH POC ABG pCO2 POC ABG pO2 ABG pO2 116.2 H ABG HCO3 28.5 H ABG O2 Saturation ABG Base Excess ABG Hemoglobin 9.1 L POC Sodium POC Potassium Sodium 134 L Potassium Chloride 91.6 L Carbon Dioxide POC BUN BUN 68 H Creatinine 7.2 H Glucose POC Glucose Calcium 10.3 H ALT 6 L C-Reactive Protein Total Protein 5.9 L Albumin 2.8 L PTH Pre-Incision PTH Post-Excision 06/19/17 06/19/17 06/20/17 07:15 23:37 04:40 WBC RBC Hgb Hct POC Hct MCV MCH RDW Stafford % (Auto) Stafford # Seg Neutrophils % Seg Neuts % (Manual) Lymphocytes % (Manual) Monocytes % (Manual) Nucleated RBC % Seg Neutrophils # Seg Neutrophils # Man Lymphocytes # (Manual) Monocytes # (Manual) Eosinophils # (Manual) Basophils # (Manual) PT INR POC ABG pH ABG pH POC ABG pCO2 POC ABG pO2 ABG pO2 ABG HCO3 ABG O2 Saturation ABG Base Excess ABG Hemoglobin POC Sodium POC Potassium Sodium 135 L Potassium Chloride 94.3 L Carbon Dioxide POC BUN BUN 41 H Creatinine 5.4 H Glucose 117 H POC Glucose 152 H 140 H Calcium 10.3 H ALT C-Reactive Protein Total Protein Albumin PTH Pre-Incision PTH Post-Excision 06/21/17 06/21/17 06/21/17 05:13 05:45 05:45 WBC 18.8 H RBC 3.54 L Hgb 8.2 L Hct 27.6 L POC Hct MCV 78 L MCH 23 L RDW 18.6 H Stafford % (Auto) Stafford # Seg Neutrophils % Seg Neuts % (Manual) Lymphocytes % (Manual) Monocytes % (Manual) Nucleated RBC % Seg Neutrophils # Seg Neutrophils # Man Lymphocytes # (Manual) Monocytes # (Manual) Eosinophils # (Manual) Basophils # (Manual) PT 15.2 H INR 1.14 H POC ABG pH ABG pH POC ABG pCO2 POC ABG pO2 ABG pO2 ABG HCO3 ABG O2 Saturation ABG Base Excess ABG Hemoglobin POC Sodium POC Potassium Sodium Potassium Chloride Carbon Dioxide POC BUN BUN Creatinine Glucose POC Glucose 140 H Calcium ALT C-Reactive Protein Total Protein Albumin PTH Pre-Incision PTH Post-Excision 06/21/17 06/21/17 06/21/17 05:45 08:28 23:21 WBC RBC Hgb Hct POC Hct MCV MCH RDW Stafford % (Auto) Stafford # Seg Neutrophils % Seg Neuts % (Manual) Lymphocytes % (Manual) Monocytes % (Manual) Nucleated RBC % Seg Neutrophils # Seg Neutrophils # Man Lymphocytes # (Manual) Monocytes # (Manual) Eosinophils # (Manual) Basophils # (Manual) PT INR POC ABG pH ABG pH POC ABG pCO2 POC ABG pO2 ABG pO2 ABG HCO3 ABG O2 Saturation ABG Base Excess ABG Hemoglobin POC Sodium POC Potassium Sodium Potassium Chloride 95.5 L Carbon Dioxide POC BUN BUN 38 H Creatinine 4.8 H Glucose 126 H POC Glucose 117 H Calcium ALT C-Reactive Protein 13.60 H Total Protein Albumin PTH Pre-Incision PTH Post-Excision 06/22/17 06/22/17 04:53 05:00 WBC RBC Hgb Hct POC Hct MCV MCH RDW Stafford % (Auto) Stafford # Seg Neutrophils % Seg Neuts % (Manual) Lymphocytes % (Manual) Monocytes % (Manual) Nucleated RBC % Seg Neutrophils # Seg Neutrophils # Man Lymphocytes # (Manual) Monocytes # (Manual) Eosinophils # (Manual) Basophils # (Manual) PT INR POC ABG pH ABG pH POC ABG pCO2 POC ABG pO2 ABG pO2 110.7 H ABG HCO3 28.2 H ABG O2 Saturation ABG Base Excess 3.7 H ABG Hemoglobin 8.9 L POC Sodium POC Potassium Sodium Potassium Chloride Carbon Dioxide POC BUN BUN Creatinine Glucose POC Glucose 111 H Calcium ALT C-Reactive Protein Total Protein Albumin PTH Pre-Incision PTH Post-Excision
--- NOTE | 2017-06-22 10:03 | Progress Note ---
Assessment and Plan Assessment: 1) Sepsis: Not present on admission, manifested by fever, hypotension, leukocytosis. Etiology - Proteus septicemia. CRP=13 2) Proteus septicemia: ? lungs 3) Acute left MCA stroke with right-sided weakness. MRI brain showed large left MCA acute infarct. 4) Secondary hyperparathyroidismelective s/p total parathyroidectomy on 06/04/17 5) ESRD on HD 6) Respiratory failure ? pulmonary edema versus VAP 7) Presumed VAP: tracheal asp + Proteus s/p trach Plan: -remove [place] cath-done -start ceftriaxone 2 g IV qday -Stop zosyn and vancomycin -f/u procalcitonin -discussed with ICU staff Thank you Dr Galan for your consultation, will follow up with you. Paz Bonilla MD Infectious Diseases Specialist [facility] [phone] Subjective Date of service: 06/22/17 Principal diagnosis: ARM/MV/Post hyperparathy./ESRD Interval history: Remains on the vent, no fever. Went to the OR s/p trach and peg placement. on the vent FIO2 at 35% peep 5 Current Antimicrobials: Zosyn 06/19 Vancomycin 06/19 Microbiology: Blood cultures: 06/19 Proteus 06/21 ngtd Urine cultures: none Respiratory cultures: 06/04 ngtd 06/20 Proteus Objective - Exam Narrative Exam: General appearance: sedated on the vent Eyes: anicteric sclerae, moist conjunctivae; no lid-lag; PERRLA HENT: Atraumatic; oropharynx +NGT Neck: surgical scar well healed +trach Lungs: dillon rhonchi / chest + mastectomy scar well healed CV: RRR Abdomen: Soft, non-tender Extremities: +peripheral edema Skin: Normal temperature, turgor and texture; no rash, ulcers or subcutaneous nodules Psych: sedated. Neuro: sedated Lines: - Constitutional Vitals: Vital Signs Temp Pulse Resp BP Pulse Ox 99.1 F 75 16 109/48 100 06/22/17 08:00 06/22/17 08:15 06/22/17 08:15 06/22/17 08:00 06/22/17 08:15 Temperature -Last 24 Hours Temperature 99.1 F Temperature 98.2 F Temperature 98.4 F Temperature 98.4 F Temperature 98.8 F Temperature 98.8 F Temperature 98.6 F Temperature 98.6 F Temperature 97.8 F Temperature 97.9 F Temperature 98.6 F - Labs CBC & Chem 7: 06/21/17 05:45 06/21/17 05:45 Labs: Abnormal lab results 06/21/17 06/22/17 06/22/17 Range/Units 23:21 04:53 05:00 ABG pO2 110.7 H (80.0-90.0) mm Hg ABG HCO3 28.2 H (20.0-26.0) mmol/L ABG Base Excess 3.7 H (-2.0-3.0) mmol/L ABG Hemoglobin 8.9 L (12.0-16.0) gm/dl POC Glucose 117 H 111 H (70-105)
--- NOTE | 2017-06-22 10:26 | Progress Note ---
Assessment and Plan Assessment: Acute CVA / AMS - head CT showed acute stroke in MCA, no hemorrhage; TTE revealed no cardiac source for CVA Thrombus in distal L ICA and MCA - per chart, neuro currently recommends against heparin gtt in setting of acute CVA and risk of conversion to hemorrhagic CVA. Hyperparathyroidism, s/p subtotal parathyroidectomy on 06/04/2017 CMP - EF 40-45%; no current clinical evidence of acute heart failure Acute on chronic respiratory failure - s/p trach HTN ESRD on HD Hypokalemia Hypocalcemia Leukocytosis - pt with intermittent low grade fever; CXR with NAF Morbid obesity History of breast cancer status post mastectomy Plan: Cont present cardiac regimen. BB and ACEI/ARB held in setting of hypotension. Consider cautious introduction if BPs will tolerate. Cont ASA and statin. Currently stable cardiac status. s/p trach. Nothing further to add from cardiac perspective at this time. Will see PRN. The patient has been seen in conjunction with Dr. Chow who agrees with the assessment and plan of care. Subjective Date of service: 06/22/17 Principal diagnosis: ARM/MV/Post hyperparathy./ESRD Interval history: Pt s/p trach yesterday. No acute events. VSS. Objective Last Vital Signs Temp 99.1 F 06/22/17 08:00 Pulse 75 06/22/17 08:15 Resp 16 06/22/17 08:15 BP 109/48 06/22/17 08:00 Pulse Ox 100 06/22/17 08:15 - Physical Examination General: Other (trached) HEENT: Positive: PERRL, Mucus Membranes Moist Neck: Positive: neck supple, trachea midline Lungs: Positive: Ventilated Respirations, Other (trached) Neuro: Positive: Weakness (right-sided), Other (trached) Abdomen: Positive: Unremarkable. Negative: Tender Skin: Positive: Clear. Negative: Rash, Wound Musculoskeletal: No Fluid Collection, No Pain, Normal Range of Motion Extremities: Absent: edema - Imaging and Cardiology EKG: image reviewed Echo: report reviewed (LV mildly dilated, mild to moderate LVH, EF 40-45%, LA moderate to severely dilated, mild MR, mild AR, mild TR. ) - EKG Sinus rhythms and dysrhythmias: sinus rhythm
[2017-06-22] MEDS: BABY ASPIRIN PO SCH (11:43)
[2017-06-22] MEDS: PEPCID PO SCH (11:44)
[2017-06-22] MEDS: ROCALTROL PO SCH (11:44)
[2017-06-22 13:15] LABS: Hematocrit 28.4 % (30.3-42.9); Hemoglobin 8.6 gm/dl (10.1-14.3); Mean Corpuscular HGB Conc 30 % (30-34); Mean Corpuscular Volume 77 fl (79-97); Platelet Count 248 K/mm3 (140-440); Red Blood Count 3.68 M/mm3 (3.65-5.03); Red Cell Distribution Width 18.4 % (13.2-15.2); White Blood Count 15.4 K/mm3 (4.5-11.0)
[2017-06-22 13:16] LABS: Mean Corpuscular Hemoglobin 23 pg (28-32)
[2017-06-22 13:36] LABS: Chloride 102.2 mmol/L (98-107)
[2017-06-22] MEDS: ROCEPHIN/NS 2 GM/100 ML 2 GM/100 ML BAG IV SCH (15:34)
--- NOTE | 2017-06-22 15:56 | Progress Note ---
Subjective Principal diagnosis: ARM/MV/Post hyperparathy./ESRD Interval history: Patient was seen today for follow-up on multiple renal related issues she is currently status post tracheotomy she is tolerating hemodialysis treatment fairly well Events of 24 hours were reviewed Vitals labs intake and output medications were reviewed from today Allergies: Reviewed Social history: Reviewed Family history: Reviewed Physical examination HEENT: Oral mucosa moist no pharyngeal erythema Neck: Supple no JVD Chest: Clear to auscultation no crackles rales or wheezes Heart: Regular rate and rhythm S1-S2 heard no S3-S4 Abdomen: Soft nontender no renal bruit no CVA tenderness no suprapubic fullness Extremity: Mild edema dry skin no peripheral cyanosis pulses palpable Neurological: tries to open her eyes Musculoskeletal: No joint effusion noted Assessment and plan End-stage renal disease: Patient is currently dialysis dependent 3 times a week Hypotension: Currently doing better relatively on midodrine 5 mg 3 times a day Anemia and end-stage renal disease: To monitor and follow no erythropoietin due to recent stroke, may need packed red blood cell transfusion instead Respiratory failure status post tracheotomy Secondary hyperparathyroidism with severe hyperparathyroidism, status post parathyroid surgery, high risk for vascular events Metabolic control secondary currently stable potassium 4.0 bicarbonate 27 phosphorous is 4.5 with magnesium of 1.9 current calcium 9.0 History of chronic poor compliance with medical recommendation; patient has been educated on several occasions about plan of care regarding secondary hyperparathyroidism, Overall prognosis currently guarded to poor Will continue to follow and make recommendation from renal standpoint Objective - Vital Signs Vital signs: Vital Signs - 12hr 06/22/17 06/22/17 06/22/17 04:00 04:13 05:00 Temperature Pulse Rate 86 72 80 Pulse Rate [ From Monitor] Respiratory 16 16 Rate Blood Pressure 106/46 107/52 116/53 O2 Sat by Pulse 86 99 100 Oximetry O2 Sat by Pulse Oximetry [ Assessment] 06/22/17 06/22/17 06/22/17 06:00 07:00 07:49 Temperature Pulse Rate 77 70 70 Pulse Rate [ From Monitor] Respiratory 16 16 Rate Blood Pressure 107/52 109/52 109/52 O2 Sat by Pulse 100 100 99 Oximetry O2 Sat by Pulse Oximetry [ Assessment] 06/22/17 06/22/17 06/22/17 08:00 08:15 09:00 Temperature 99.1 F Pulse Rate 71 72 Pulse Rate [ 75 From Monitor] Respiratory 15 16 15 Rate Blood Pressure 109/48 109/55 O2 Sat by Pulse 100 100 100 Oximetry O2 Sat by Pulse Oximetry [ Assessment] 06/22/17 06/22/17 06/22/17 10:00 11:00 12:00 Temperature 99.4 F Pulse Rate 74 69 75 Pulse Rate [ From Monitor] Respiratory 16 16 16 Rate Blood Pressure 109/55 109/55 107/51 O2 Sat by Pulse 100 100 100 Oximetry O2 Sat by Pulse Oximetry [ Assessment] 06/22/17 06/22/17 06/22/17 12:10 12:14 12:16 Temperature Pulse Rate 75 Pulse Rate [ From Monitor] Respiratory 16 Rate Blood Pressure 107/51 O2 Sat by Pulse 100 100 Oximetry O2 Sat by Pulse 100 Oximetry [ Assessment] 06/22/17 06/22/17 13:00 14:00 Temperature Pulse Rate 66 73 Pulse Rate [ From Monitor] Respiratory 16 16 Rate Blood Pressure 121/58 114/55 O2 Sat by Pulse 100 100 Oximetry O2 Sat by Pulse Oximetry [ Assessment] - Lab 06/22/17 11:59 06/22/17 11:59 Most recent lab results ABG pH 7.438 pH Units (7.350-7.450) 06/22/17 05:00 ABG pCO2 42.6 mm Hg 06/22/17 05:00 ABG pO2 110.7 mm Hg (80.0-90.0) H 06/22/17 05:00 ABG HCO3 28.2 mmol/L (20.0-26.0) H 06/22/17 05:00 ABG O2 Saturation 98.1 % (95.0-99.0) 06/22/17 05:00 Calcium 9.0 mg/dL (8.4-10.2) 06/22/17 11:59 Phosphorus 4.50 mg/dL (2.5-4.5) 06/06/17 07:13 Magnesium 1.90 mg/dL (1.7-2.3) 06/16/17 11:00
--- NOTE | 2017-06-22 16:26 | Progress Note ---
Assessment and Plan /Acute hypoxic respiratory failure on MV > 96 hours - re-intubated, continue vent and s/p trach on 06/21/17 - cont periodic breathing treatment, pulmonary following /Acute left MCA stroke with right-sided weakness - Neurology consult appreciated -MR brain showed large left MCA acute infarct - on aspirin and statin - Cardiology consulted to rule out cardiac cause of stroke - Vascular surgery consulted no intervention needed - received mannitol for IC edema /Sepsis -may have Aspiration PNA which is obscured by pulmonary edema -Blood cx reviewed, growing gram variable rods, obtained tracheal aspirate cx -Now on zosyn and vancomycin, ID following /Metabolic Enchephalopathy -due to CVA and IC edema, imrpoving -s/p mannitol /Status post subtotal parathyroidectomy/Hypocalcemia - Continue postop care per surgery - continue to replete calcium as needed /End-stage renal disease on hemodialysis - Continue hemodialysis as scheduled per nephrology /Hyperkalemia -improved with HD /Hypertension - Continue When necessary medication /History of breast cancer status post mastectomy - Stable /Morbid obesity with BMI of 47.8, - Nutrition input appreciated /Moderate malnutrition -continue tube feeds /Hyponatremia -reduced free water via G tube, and received NS, now improved /Hypotension resolved with IVF bolus now on midodrine The high probability of a clinically significant, sudden or life threatening deterioration of the [respiratory] system(s) required my full and direct attention, intervention and personal management. The aggregate critical care time was [32] minutes. This time is in addition to time spent performing reported procedures but includes the following: [x] Data Review and interpretation [x] Patient assessment and monitoring of vital signs [x] Documentation [x] Medication orders and managementPatient would benefit by outpatient bariatric surgical evaluation for weight reduction program and medically stable CODE STATUS FULL Brief history: 66-year-old female patient significant past medical history of hypertension and obstructive sleep apnea, ESRD on hemodialysis, breast cancer status post mastectomy underwent elective total parathyroidectomy and was admitted to ICU with respiratory failure requiring intubation, she unfortunately found to have a left MCA stroke. Unable to wean off from vent, plan to have trach and PEG. Microbiology 06/21/17 08:28 Peripheral/Venous Blood Culture - Preliminary Culture in Progress 06/21/17 08:55 Peripheral/Venous Blood Culture - Preliminary Culture in Progress 06/20/17 19:30 Tracheal Aspirate Sputum Culture - Preliminary 06/19/17 22:15 Peripheral/Venous Blood Culture - Preliminary Gram Negative Fernando 06/04/17 23:00 Tracheal Aspirate Sputum Culture - Final Active meds: Generic Name Dose Route Start Last Admin Trade Name Freq PRN Reason Stop Dose Admin Lipase/Protease/Amylase 1 each 06/07/17 12:31 Joaquin Stallworth 10,500 Unit FEEDTUBE PRN PRN For Clogged Feeding Tube Aspirin 81 mg 06/08/17 19:00 06/21/17 16:15 Baby Aspirin PO Not Given QDAY JANE Atorvastatin Calcium 40 mg 06/08/17 22:00 06/22/17 00:00 Lipitor PO 40 mg QHS JANE Administration Bisacodyl 10 mg 06/04/17 16:35 06/14/17 18:10 Dulcolax FL 10 mg QDAY PRN Administration constipation unrelieved by MOM Calcitriol 0.5 mcg 06/07/17 10:00 06/21/17 16:28 Rocaltrol PO 0.5 mcg QDAY [facility] Administration Calcium Carbonate/Glycine 1,000 mg 06/06/17 14:00 06/22/17 01:07 Tums PO Not Given TID [facility] Famotidine 20 mg 06/10/17 10:00 06/21/17 16:28 Pepcid PO 20 mg DAILY [facility] Administration Heparin Sodium (Porcine) 5,000 unit 06/09/17 22:00 06/22/17 00:09 Heparin SUB-Q Not Given Q12HR [facility] Hydralazine HCl 5 mg 06/08/17 01:31 06/11/17 12:42 Apresoline IV 5 mg Q6HR PRN Administration SBP>160 Hydrophilic Ointment 1 applic 06/04/17 17:25 06/05/17 17:46 Vaseline Lip Therapy TP 1 applic Q2HR PRN Administration Dry Lips Fentanyl Citrate 2,000 mcg in 100 mls @ 6.124 mls/hr 06/11/17 16:00 Fentanyl Drip Premix IV TITR JANE Protocol 1 MCG/KG/HR Sodium Chloride 100 mls @ 999 mls/hr 06/17/17 08:12 Nacl 0.9% IV KAYLA PRN Hypotension Piperacillin Sod/Tazobactam Sod 2.25 gm in 50 mls @ 100 mls/hr 06/19/17 22:00 06/22/17 06:18 Zosyn/Ns 2.25 Gm/50ml IV 100 mls/hr Q8HR JANE Administration Protocol Sodium Chloride 100 mls @ 999 mls/hr 06/20/17 12:45 06/20/17 22:28 Nacl 0.9% IV 999 mls/hr KAYLA PRN Administration Hypotension Midodrine 2.5 mg 06/13/17 11:30 06/22/17 06:20 Proamatine PO 2.5 mg Q8HR JANE Administration Multi-Ingred Cream/Lotion/Oil/Oint 1 applic 06/11/17 15:36 Artificial Tears Ophth Oint OU Q4HR PRN Dry Eye(s) Simple Syrup 15 ml 06/07/17 12:31 Simple Syrup FEEDTUBE PRN PRN Hypoglycemia Simple Syrup 30 ml 06/07/17 12:31 Simple Syrup FEEDTUBE PRN PRN Hypoglycemia Sodium Bicarbonate 325 mg 06/07/17 12:31 Sodium Bicarbonate FEEDTUBE PRN PRN For Clogged Feeding Tube Sodium Chloride 1 ml 06/11/17 16:00 Nacl 0.9% 500 Ml IV DIRECT JANE Vancomycin HCl 1 each 06/20/17 14:00 Vancomycin Pharmacy To Dose IV PKCONSULT [facility] Protocol Hospitalist Physical - Physical exam Narrative exam: General.: Appears well, no distress, nontoxic HEENT: Moist mucous membranes, extraocular muscles intact, no lymphadenopathy Neck: supple, trach on place Cardiac: S1-S2 heard Lungs: clear to auscultation bilaterally Abdomen: soft , nontender, nondistended, bowel sounds positive. PEG on place Extremities: no edema clubbing or cyanosis Skin: no rash or lesions Neurologic: Intubated, Patient is only moving left side of her body responds to painful stimuli, right side is not moving. does not obey commands Subjective Date of service: 06/22/17 Principal diagnosis: ARM/MV/Post hyperparathy./ESRD Interval history: pt seen and examined Family at bedside updated remains intubated s/p trach and PEG yesterday Objective - Constitutional Vitals: Vital Signs - 12hr 06/22/17 06/22/17 06/22/17 05:00 06:00 07:00 Temperature Pulse Rate 80 77 70 Pulse Rate [ From Monitor] Respiratory 16 16 16 Rate Blood Pressure 116/53 107/52 109/52 O2 Sat by Pulse 100 100 100 Oximetry O2 Sat by Pulse Oximetry [ Assessment] 06/22/17 06/22/17 06/22/17 07:49 08:00 08:15 Temperature 99.1 F Pulse Rate 70 71 Pulse Rate [ 75 From Monitor] Respiratory 15 16 Rate Blood Pressure 109/52 109/48 O2 Sat by Pulse 99 100 100 Oximetry O2 Sat by Pulse Oximetry [ Assessment] 06/22/17 06/22/17 06/22/17 09:00 10:00 11:00 Temperature Pulse Rate 72 74 69 Pulse Rate [ From Monitor] Respiratory 15 16 16 Rate Blood Pressure 109/55 109/55 109/55 O2 Sat by Pulse 100 100 100 Oximetry O2 Sat by Pulse Oximetry [ Assessment] 06/22/17 06/22/17 06/22/17 12:00 12:10 12:14 Temperature 99.4 F Pulse Rate 75 75 Pulse Rate [ From Monitor] Respiratory 16 16 Rate Blood Pressure 107/51 107/51 O2 Sat by Pulse 100 100 100 Oximetry O2 Sat by Pulse Oximetry [ Assessment] 06/22/17 06/22/17 06/22/17 12:16 13:00 14:00 Temperature Pulse Rate 66 73 Pulse Rate [ From Monitor] Respiratory 16 16 Rate Blood Pressure 121/58 114/55 O2 Sat by Pulse 100 100 Oximetry O2 Sat by Pulse 100 Oximetry [ Assessment] 06/22/17 06/22/17 15:00 16:00 Temperature 98.9 F Pulse Rate 72 70 Pulse Rate [ From Monitor] Respiratory 16 16 Rate Blood Pressure 114/58 126/54 O2 Sat by Pulse 100 100 Oximetry O2 Sat by Pulse Oximetry [ Assessment] - Labs CBC & Chem 7: 06/22/17 11:59 06/22/17 11:59 Labs: Abnormal lab results 06/21/17 06/22/17 06/22/17 Range/Units 23:21 04:53 05:00 WBC (4.5-11.0) K/mm3 Hgb (10.1-14.3) gm/dl Hct (30.3-42.9) % MCV (79-97) fl MCH (28-32) pg RDW (13.2-15.2) % ABG pO2 110.7 H (80.0-90.0) mm Hg ABG HCO3 28.2 H (20.0-26.0) mmol/L ABG Base Excess 3.7 H (-2.0-3.0) mmol/L ABG Hemoglobin 8.9 L (12.0-16.0) gm/dl BUN (7-17) mg/dL Creatinine (0.7-1.2) mg/dL Glucose (65-100) mg/dL POC Glucose 117 H 111 H (70-105) 06/22/17 06/22/17 06/22/17 Range/Units 11:49 11:59 11:59 WBC 15.4 H (4.5-11.0) K/mm3 Hgb 8.6 L (10.1-14.3) gm/dl Hct 28.4 L (30.3-42.9) % MCV 77 L (79-97) fl MCH 23 L (28-32) pg RDW 18.4 H (13.2-15.2) % ABG pO2 (80.0-90.0) mm Hg ABG HCO3 (20.0-26.0) mmol/L ABG Base Excess (-2.0-3.0) mmol/L ABG Hemoglobin (12.0-16.0) gm/dl BUN 25 H (7-17) mg/dL Creatinine 4.2 H (0.7-1.2) mg/dL Glucose 101 H (65-100) mg/dL POC Glucose 123 H (70-105)
--- NOTE | 2017-06-22 18:07 | Progress Note ---
Assessment and Plan s/p Trach/PEG-stable. Will sign off. Subjective Date of service: 06/22/17 Patient Reports: Positive: no new complaints Objective Vital Signs - 12hr 06/22/17 06/22/17 06/22/17 07:00 07:49 08:00 Temperature 99.1 F Pulse Rate 70 70 71 Pulse Rate [ From Monitor] Respiratory 16 15 Rate Blood Pressure 109/52 109/52 109/48 O2 Sat by Pulse 100 99 100 Oximetry O2 Sat by Pulse Oximetry [ Assessment] 06/22/17 06/22/17 06/22/17 08:15 09:00 10:00 Temperature Pulse Rate 72 74 Pulse Rate [ 75 From Monitor] Respiratory 16 15 16 Rate Blood Pressure 109/55 109/55 O2 Sat by Pulse 100 100 100 Oximetry O2 Sat by Pulse Oximetry [ Assessment] 06/22/17 06/22/17 06/22/17 11:00 12:00 12:10 Temperature 99.4 F Pulse Rate 69 75 Pulse Rate [ From Monitor] Respiratory 16 16 16 Rate Blood Pressure 109/55 107/51 O2 Sat by Pulse 100 100 100 Oximetry O2 Sat by Pulse Oximetry [ Assessment] 06/22/17 06/22/17 06/22/17 12:14 12:16 13:00 Temperature Pulse Rate 75 66 Pulse Rate [ From Monitor] Respiratory 16 Rate Blood Pressure 107/51 121/58 O2 Sat by Pulse 100 100 Oximetry O2 Sat by Pulse 100 Oximetry [ Assessment] 06/22/17 06/22/17 06/22/17 14:00 15:00 16:00 Temperature 98.9 F Pulse Rate 73 72 70 Pulse Rate [ 70 From Monitor] Respiratory 16 16 15 Rate Blood Pressure 114/55 114/58 126/54 O2 Sat by Pulse 100 100 100 Oximetry O2 Sat by Pulse Oximetry [ Assessment] 06/22/17 06/22/17 16:43 17:00 Temperature Pulse Rate 73 69 Pulse Rate [ From Monitor] Respiratory 15 Rate Blood Pressure 126/54 118/55 O2 Sat by Pulse 100 100 Oximetry O2 Sat by Pulse Oximetry [ Assessment] - Neck no masses (incision clean) - Abdomen soft (tolerating TF) - Labs 06/22/17 11:59 06/22/17 11:59 Diabetes panel 06/22/17 Range/Units 11:59 Sodium 143 (137-145) mmol/L Potassium 4.0 (3.6-5.0) mmol/L Chloride 102.2 (98-107) mmol/L Carbon Dioxide 27 (22-30) mmol/L BUN 25 H (7-17) mg/dL Creatinine 4.2 H (0.7-1.2) mg/dL Glucose 101 H (65-100) mg/dL Calcium 9.0 (8.4-10.2) mg/dL Calcium panel 06/22/17 Range/Units 11:59 Calcium 9.0 (8.4-10.2) mg/dL Pituitary panel 06/22/17 Range/Units 11:59 Sodium 143 (137-145) mmol/L Potassium 4.0 (3.6-5.0) mmol/L Chloride 102.2 (98-107) mmol/L Carbon Dioxide 27 (22-30) mmol/L BUN 25 H (7-17) mg/dL Creatinine 4.2 H (0.7-1.2) mg/dL Glucose 101 H (65-100) mg/dL Calcium 9.0 (8.4-10.2) mg/dL Adrenal panel 06/22/17 Range/Units 11:59 Sodium 143 (137-145) mmol/L Potassium 4.0 (3.6-5.0) mmol/L Chloride 102.2 (98-107) mmol/L Carbon Dioxide 27 (22-30) mmol/L BUN 25 H (7-17) mg/dL Creatinine 4.2 H (0.7-1.2) mg/dL Glucose 101 H (65-100) mg/dL Calcium 9.0 (8.4-10.2) mg/dL
[2017-06-23 04:17] LABS: Hematocrit 27.2 % (30.3-42.9); Hemoglobin 8.4 gm/dl (10.1-14.3); Mean Corpuscular HGB Conc 31 % (30-34); Mean Corpuscular Volume 77 fl (79-97); Platelet Count 222 K/mm3 (140-440); Red Blood Count 3.53 M/mm3 (3.65-5.03); Red Cell Distribution Width 18.5 % (13.2-15.2); White Blood Count 12.1 K/mm3 (4.5-11.0)
[2017-06-23 04:20] LABS: Mean Corpuscular Hemoglobin 24 pg (28-32)
[2017-06-23 04:39] LABS: Calcium 9.3 mg/dL (8.4-10.2); Chloride 100.4 mmol/L (98-107)
[2017-06-23] MEDS: PROAMATINE PO SCH ×3 (05:53→22:27)
[2017-06-23 05:56] LABS: ISTAT Base Excess 6; ISTAT PCO2 34.7 (35-45); ISTAT PO2 136 (80-105); ISTAT SO2 99; ISTAT TCO2 30
--- NOTE | 2017-06-23 09:10 | Progress Note ---
Subjective Principal diagnosis: ARM/MV/Post hyperparathy./ESRD Interval history: Patient was seen today for follow-up on multiple renal-related issues her sister is at bedside Patient is arousable opens her eyes but does not follow commands even to her sister She has been tolerating dialysis treatment fairly well Blood pressure-pierre she is doing better Events of 24 hours, interdisciplinary notes were also reviewed Lab results were reviewed Social history: Reviewed Medication: Reviewed Family history: Reviewed Allergies: Reviewed Physical examination General; no acute distress HEENT: Mild pallor no icterus oral mucosa moist Neck: Supple soft no jugular venous distention Chest: Bilateral clear to auscultation anteriorly posteriorly a few faint basilar crackles at the lung bases no wheezes Cardiovascular: S1-S2 heart no S3-S4 Abdomen: Soft nontender no voluntary guarding rigidity rebound no organomegaly no masses no suprapubic fullness no CVA tenderness Extremity: Minimal edema dry skin no tenderness in the Area Derm: Dry skin Assessment and plan; End-stage renal disease: Patient is currently in maintenance hemodialysis Wednesday and Wednesday Hypotension patient clinically appears to be doing better now Recent stroke patient is more alert awake but does not follow commands, her sister is here at the bedside today Anemia and end-stage renal disease to monitor and follow no erythropoietin due to recent stroke would like to avoid Secondary hyperparathyroidism to monitor and follow status post parathyroid surgery Monitor calcium and phosphorus periodically, current calcium level satisfactory at 9.3, will check intact PTH Hyponatremia appears to have resolved Respiratory failure currently status post tracheotomy We'll continue to follow and make recommendation from renal standpoint Objective - Vital Signs Vital signs: Vital Signs - 12hr 06/22/17 06/22/17 06/22/17 22:00 23:00 23:10 Temperature Pulse Rate 66 64 Respiratory 16 16 Rate Blood Pressure 119/51 119/51 O2 Sat by Pulse 100 100 Oximetry O2 Sat by Pulse 100 Oximetry [ Assessment] 06/22/17 06/23/17 06/23/17 23:16 00:00 00:38 Temperature 98.9 F Pulse Rate 60 63 63 Respiratory 16 16 Rate Blood Pressure 119/51 107/45 107/45 O2 Sat by Pulse 100 100 100 Oximetry O2 Sat by Pulse Oximetry [ Assessment] 06/23/17 06/23/17 06/23/17 01:00 02:00 03:00 Temperature Pulse Rate 63 60 62 Respiratory 16 16 16 Rate Blood Pressure 102/47 95/41 104/49 O2 Sat by Pulse 100 100 100 Oximetry O2 Sat by Pulse Oximetry [ Assessment] 06/23/17 06/23/17 06/23/17 03:49 04:00 04:42 Temperature 99.0 F Pulse Rate 64 66 Respiratory 15 Rate Blood Pressure 107/46 107/46 O2 Sat by Pulse 100 100 Oximetry O2 Sat by Pulse Oximetry [ Assessment] 06/23/17 06/23/17 06/23/17 05:00 06:00 07:00 Temperature Pulse Rate 63 63 68 Respiratory 16 16 16 Rate Blood Pressure 103/45 119/53 119/53 O2 Sat by Pulse 100 100 100 Oximetry O2 Sat by Pulse Oximetry [ Assessment] 06/23/17 06/23/17 06/23/17 07:35 08:00 08:12 Temperature 98.4 F Pulse Rate 64 73 Respiratory 16 Rate Blood Pressure 121/52 121/52 O2 Sat by Pulse 100 100 Oximetry O2 Sat by Pulse 100 Oximetry [ Assessment] - Lab 06/23/17 02:49 06/23/17 02:49 Most recent lab results ABG pH 7.438 pH Units (7.350-7.450) 06/22/17 05:00 ABG pCO2 42.6 mm Hg 06/22/17 05:00 ABG pO2 110.7 mm Hg (80.0-90.0) H 06/22/17 05:00 ABG HCO3 28.2 mmol/L (20.0-26.0) H 06/22/17 05:00 ABG O2 Saturation 98.1 % (95.0-99.0) 06/22/17 05:00 Calcium 9.3 mg/dL (8.4-10.2) 06/23/17 02:49 Phosphorus 4.50 mg/dL (2.5-4.5) 06/06/17 07:13 Magnesium 1.90 mg/dL (1.7-2.3) 06/16/17 11:00
--- NOTE | 2017-06-23 09:49 | Progress Note ---
Assessment and Plan Assessment and plan: /Acute hypoxic respiratory failure on MV > 96 hours - re-intubated, continue vent and s/p trach on 06/21/17 - cont periodic breathing treatment, pulmonary following /Acute left MCA stroke with right-sided weakness - Neurology consult appreciated -MR brain showed large left MCA acute infarct - Continueon aspirin and statin - Cardiology consulted to rule out cardiac cause of stroke - Vascular surgery consulted no intervention needed - received mannitol for IC edema /Sepsis -may have Aspiration PNA which is obscured by pulmonary edema -Blood cx reviewed growing Proteus mirabilis -Now on Ceftriaxone /Metabolic Enchephalopathy -due to CVA and IC edema, imrpoving -s/p mannitol /Status post subtotal parathyroidectomy - Continue postop care per surgery - continue to replete calcium as needed /End-stage renal disease on hemodialysis -Creatinine 5.6 today - Continue hemodialysis as scheduled per nephrology /Hyperkalemia -Now resolved. Potassium 4.0 today /Hypertension - Continue prn medication /History of breast cancer status post mastectomy - Stable /Morbid obesity with BMI > 40 - Nutrition input appreciated /Moderate malnutrition -continue tube feeds /Hyponatremia -reduced free water via G tube, and received NS, now improved /Hypotension resolved with IVF bolus now on midodrine Discussed with family member, Aunt at bedside. History Interval history: Patient still intubated, Hospitalist Physical - Physical exam Narrative exam: Gen Appearance: Not in acute distress, morbidly obese HEENT: normocephalic, atraumatic Neck: supple, no JVD Lungs: clear to auscultation bilaterally, no crackles or wheezes Heart: S1 and S2 regular, no murmurs, rubs or gallop Abdomen: Soft , non tender, non distended, normal bowel sounds Extremity: No edema, clubbing or cyanosis Neuro : Intubated, Does not follow commands - Constitutional Vitals: Temp Pulse Resp BP Pulse Ox 98.4 F 79 27 H 119/50 100 06/23/17 08:00 06/23/17 09:00 06/23/17 09:00 06/23/17 09:00 06/23/17 09:00 General appearance: Present: no acute distress, other (withdrawn, nonverbal) Results - Labs CBC & Chem 7: 06/23/17 02:49 06/23/17 02:49 Labs: Laboratory Last Values WBC 12.1 K/mm3 (4.5-11.0) H 06/23/17 02:49 RBC 3.53 M/mm3 (3.65-5.03) L 06/23/17 02:49 Hgb 8.4 gm/dl (10.1-14.3) L 06/23/17 02:49 POC Hgb 14.3 (12-17) 06/04/17 16:22 Hct 27.2 % (30.3-42.9) L 06/23/17 02:49 POC Hct 42 (38-51) 06/04/17 16:22 MCV 77 fl (79-97) L 06/23/17 02:49 MCH 24 pg (28-32) L 06/23/17 02:49 MCHC 31 % (30-34) 06/23/17 02:49 RDW 18.5 % (13.2-15.2) H 06/23/17 02:49 Plt Count 222 K/mm3 (140-440) 06/23/17 02:49 [place] % (Auto) 11.2 % (0.0-7.3) H 06/16/17 08:45 Eos % (Auto) 1.4 % (0.0-4.3) 06/16/17 08:45 [place] # 1.6 K/mm3 (0.0-0.8) H 06/16/17 08:45 Eos # 0.2 K/mm3 (0.0-0.4) 06/16/17 08:45 Baso # 0.1 K/mm3 (0.0-0.1) 06/16/17 08:45 Add Manual Diff Complete 06/16/17 08:45 Total Counted 100 06/16/17 08:45 Seg Neutrophils % 82.8 % (40.0-70.0) H 06/16/17 08:45 Seg Neuts % (Manual) 78.0 % (40.0-70.0) H 06/16/17 08:45 Band Neutrophils % 1.0 % 06/16/17 08:45 Lymphocytes % (Manual) 3.0 % (13.4-35.0) L 06/16/17 08:45 Reactive Lymphs % (Man) 0 % 06/16/17 08:45 Monocytes % (Manual) 9.0 % (0.0-7.3) H 06/16/17 08:45 Eosinophils % (Manual) 2.0 % (0.0-4.3) 06/16/17 08:45 Basophils % (Manual) 1.0 % (0.0-1.8) 06/16/17 08:45 Metamyelocytes % 6.0 % 06/16/17 08:45 Myelocytes % 0 % 06/16/17 08:45 Promyelocytes % 0 % 06/16/17 08:45 Blast Cells % 0 % 06/16/17 08:45 Nucleated RBC % 1.0 % (0.0-0.9) H 06/16/17 08:45 Seg Neutrophils # 12.2 K/mm3 (1.8-7.7) H 06/16/17 08:45 Seg Neutrophils # Man 17.1 K/mm3 (1.8-7.7) H 06/16/17 08:45 Band Neutrophils # 0.2 K/mm3 06/16/17 08:45 Lymphocytes # (Manual) 0.7 K/mm3 (1.2-5.4) L 06/16/17 08:45 Abs React Lymphs (Man) 0.0 K/mm3 06/16/17 08:45 Monocytes # (Manual) 2.0 K/mm3 (0.0-0.8) H 06/16/17 08:45 Eosinophils # (Manual) 0.4 K/mm3 (0.0-0.4) 06/16/17 08:45 Basophils # (Manual) 0.2 K/mm3 (0.0-0.1) H 06/16/17 08:45 Metamyelocytes # 1.3 K/mm3 06/16/17 08:45 Myelocytes # 0.0 K/mm3 06/16/17 08:45 Promyelocytes # 0.0 K/mm3 06/16/17 08:45 Blast Cells # 0.0 K/mm3 06/16/17 08:45 WBC Morphology Not Reportable 06/16/17 08:45 Hypersegmented Neuts Not Reportable 06/16/17 08:45 Hyposegmented Neuts Not Reportable 06/16/17 08:45 Hypogranular Neuts Not Reportable 06/16/17 08:45 Smudge Cells Not Reportable 06/16/17 08:45 Toxic Granulation Not Reportable 06/16/17 08:45 Toxic Vacuolation Not Reportable 06/16/17 08:45 Dohle Bodies Not Reportable 06/16/17 08:45 Pelger-Huet Anomaly Not Reportable 06/16/17 08:45 Sunita Rods Not Reportable 06/16/17 08:45 Platelet Estimate Cons 06/16/17 08:45 Clumped Platelets Not Reportable 06/16/17 08:45 Plt Clumps, EDTA Not Reportable 06/16/17 08:45 Large Platelets Not Reportable 06/16/17 08:45 Giant Platelets Not Reportable 06/16/17 08:45 Platelet Satelliting Not Reportable 06/16/17 08:45 Plt Morphology Comment Not Reportable 06/16/17 08:45 RBC Morphology Not Reportable 06/16/17 08:45 Dimorphic RBCs Not Reportable 06/16/17 08:45 Polychromasia Not Reportable 06/16/17 08:45 Hypochromasia 2+ 06/16/17 08:45 Poikilocytosis Not Reportable 06/16/17 08:45 Anisocytosis Not Reportable 06/16/17 08:45 Microcytosis 1+ 06/16/17 08:45 Macrocytosis Not Reportable 06/16/17 08:45 Spherocytes Not Reportable 06/16/17 08:45 Pappenheimer Bodies Not Reportable 06/16/17 08:45 Sickle Cells Not Reportable 06/16/17 08:45 Target Cells Not Reportable 06/16/17 08:45 Tear Drop Cells Few 06/16/17 08:45 Ovalocytes Not Reportable 06/16/17 08:45 Helmet Cells Not Reportable 06/16/17 08:45 [place] Bodies Not Reportable 06/16/17 08:45 [place] Rings Not Reportable 06/16/17 08:45 [place] Cells Not Reportable 06/16/17 08:45 Bite Cells Not Reportable 06/16/17 08:45 Crenated Cell Not Reportable 06/16/17 08:45 Elliptocytes Not Reportable 06/16/17 08:45 Acanthocytes (Spur) Not Reportable 06/16/17 08:45 Rouleaux Not Reportable 06/16/17 08:45 Hemoglobin C Crystals Not Reportable 06/16/17 08:45 Schistocytes Few 06/16/17 08:45 Malaria parasites Not Reportable 06/16/17 08:45 [place] Bodies Not Reportable 06/16/17 08:45 Hem Pathologist Commnt No 06/16/17 08:45 PT 15.2 Sec. (12.2-14.9) H 06/21/17 05:45 INR 1.14 (0.87-1.13) H 06/21/17 05:45 APTT 29.9 Sec. (24.2-36.6) 06/09/17 16:55 POC ABG pH 7.530 (7.35-7.45) H 06/23/17 04:45 ABG pH 7.438 pH Units (7.350-7.450) 06/22/17 05:00 POC ABG pCO2 34.7 (35-45) L 06/23/17 04:45 ABG pCO2 42.6 mm Hg 06/22/17 05:00 POC ABG pO2 136 (80-105) H 06/23/17 04:45 ABG pO2 110.7 mm Hg (80.0-90.0) H 06/22/17 05:00 POC ABG HCO3 29.0 06/23/17 04:45 ABG HCO3 28.2 mmol/L (20.0-26.0) H 06/22/17 05:00 POC ABG Total CO2 30 06/23/17 04:45 POC ABG O2 Sat 99 06/23/17 04:45 ABG O2 Saturation 98.1 % (95.0-99.0) 06/22/17 05:00 ABG O2 Content 12.3 (0.0-44) 06/22/17 05:00 POC ABG Base Excess 6 06/23/17 04:45 ABG Base Excess 3.7 mmol/L (-2.0-3.0) H 06/22/17 05:00 ABG Hemoglobin 8.9 gm/dl (12.0-16.0) L 06/22/17 05:00 ABG Carboxyhemoglobin 1.7 % (0.0-5.0) 06/22/17 05:00 ABG Methemoglobin 0.3 % (0.0-1.5) 06/22/17 05:00 Oxyhemoglobin 96.1 % (95.0-99.0) 06/22/17 05:00 POC Sodium 137 mmol/L (138-146) L 06/04/17 16:22 POC Potassium 5.3 (3.5-4.9) H 06/04/17 16:22 POC Chloride 102 (98-109) 06/04/17 16:22 FiO2 35 % 06/23/17 04:45 Sodium 142 mmol/L (137-145) 06/23/17 02:49 Potassium 4.0 mmol/L (3.6-5.0) 06/23/17 02:49 Chloride 100.4 mmol/L (98-107) 06/23/17 02:49 Carbon Dioxide 25 mmol/L (22-30) 06/23/17 02:49 Anion Gap 21 mmol/L 06/23/17 02:49 POC BUN 45 mg/dl (8-26) H 06/04/17 16:22 BUN 36 mg/dL (7-17) H 06/23/17 02:49 Creatinine 5.6 mg/dL (0.7-1.2) H 06/23/17 02:49 Estimated GFR 9 ml/min 06/23/17 02:49 BUN/Creatinine Ratio 6 % 06/23/17 02:49 Glucose 77 mg/dL (65-100) 06/23/17 02:49 POC Glucose 88 (70-105) 06/23/17 05:31 Osmolality 312 Mosm/kg 06/14/17 09:25 Calcium 9.3 mg/dL (8.4-10.2) 06/23/17 02:49 Phosphorus 4.50 mg/dL (2.5-4.5) 06/06/17 07:13 Magnesium 1.90 mg/dL (1.7-2.3) 06/16/17 11:00 Total Bilirubin 0.40 mg/dL (0.1-1.2) 06/18/17 08:10 AST 14 units/L (5-40) 06/18/17 08:10 ALT 6 units/L (7-56) L 06/18/17 08:10 Alkaline Phosphatase 92 units/L (35-129) 06/18/17 08:10 C-Reactive Protein 13.60 mg/dL (0.00-1.30) H 06/21/17 08:28 Total Protein 5.9 g/dL (6.3-8.2) L 06/18/17 08:10 Albumin 2.8 g/dL (3.9-5) L 06/18/17 08:10 Albumin/Globulin Ratio 0.9 % 06/18/17 08:10 Triglycerides 132 mg/dL (2-149) 06/09/17 11:49 Cholesterol 171 mg/dL (50-199) 06/09/17 11:49 LDL Cholesterol Direct 95 mg/dL (50-130) 06/09/17 11:49 HDL Cholesterol 50 mg/dL (40-59) 06/09/17 11:49 Cholesterol/HDL Ratio 3.42 % 06/09/17 11:49 PTH Pre-Incision 641.9 (11.1-79.5) H 06/04/17 13:55 PTH Post-Excision 154.7 (11.1-79.5) H 06/04/17 13:55 PTH Intact Intraop 5 m Not Reportable 06/04/17 13:55 Random Vancomycin 17.4 ug/mL (0-40.0) 06/21/17 05:45 Blood Type O POSITIVE 06/21/17 05:30 Antibody Screen TNR 06/21/17 05:30 JOHN Antibody Screen Negative 06/21/17 05:30
--- NOTE | 2017-06-23 10:16 | Progress Note ---
Assessment and Plan Assessment: 1) Sepsis: improving. Etiology - Proteus septicemia. CRP=13 2) Proteus septicemia: ? lungs 3) Acute left MCA stroke with right-sided weakness. MRI brain showed large left MCA acute infarct. 4) Secondary hyperparathyroidismelective s/p total parathyroidectomy on 06/04/17 5) ESRD on HD 6) Respiratory failure ? pulmonary edema versus VAP 7) Presumed VAP: tracheal asp + Proteus s/p trach Plan: -contiue ceftriaxone 2 g IV qday - day 5 (from zosyn starting date) -f/u procalcitonin -upon discharge will do levaquin 750 mg PO QOD total 14 days from 06/[address] Singh for your consultation, will follow up with you. Paz Bonilla MD Infectious Diseases Specialist [facility] [phone] O [phone] Subjective Date of service: 06/23/17 Principal diagnosis: ARM/MV/Post hyperparathy./ESRD Interval history: Remains on the vent, no fever. On the vent FIO2 at 35% p 5 Current Antimicrobials: Zosyn 06/19 Vancomycin 06/19 Microbiology: Blood cultures: 06/19 Proteus 06/21 neg Urine cultures: none Respiratory cultures: 06/04 ngtd 06/20 Proteus Objective - Exam Narrative Exam: General appearance: alert on the vent Eyes: anicteric sclerae, moist conjunctivae; no lid-lag; PERRLA HENT: Atraumatic; oropharynx +NGT Neck: surgical scar well healed +trach Lungs: dillon rhonchi / chest + mastectomy scar well healed CV: RRR Abdomen: Soft, non-tender Extremities: +peripheral edema Skin: Normal temperature, turgor and texture; no rash, ulcers or subcutaneous nodules Psych: sedated. Neuro: sedated Lines: - Constitutional Vitals: Vital Signs Temp Pulse Resp BP Pulse Ox 98.4 F 79 27 H 119/50 100 06/23/17 08:00 06/23/17 09:00 06/23/17 09:00 06/23/17 09:00 06/23/17 09:00 Temperature -Last 24 Hours Temperature 98.4 F Temperature 99.0 F Temperature 98.9 F Temperature 99.1 F Temperature 98.9 F Temperature 99.4 F - Labs CBC & Chem 7: 06/23/17 02:49 06/23/17 02:49 Labs: Abnormal lab results 06/22/17 06/22/17 06/22/17 Range/Units 11:49 11:59 11:59 WBC 15.4 H (4.5-11.0) K/mm3 RBC (3.65-5.03) M/mm3 Hgb 8.6 L (10.1-14.3) gm/dl Hct 28.4 L (30.3-42.9) % MCV 77 L (79-97) fl MCH 23 L (28-32) pg RDW 18.4 H (13.2-15.2) % POC ABG pH (7.35-7.45) POC ABG pCO2 (35-45) POC ABG pO2 (80-105) BUN 25 H (7-17) mg/dL Creatinine 4.2 H (0.7-1.2) mg/dL Glucose 101 H (65-100) mg/dL POC Glucose 123 H (70-105) 06/23/17 06/23/17 06/23/17 Range/Units 02:49 02:49 04:45 WBC 12.1 H (4.5-11.0) K/mm3 RBC 3.53 L (3.65-5.03) M/mm3 Hgb 8.4 L (10.1-14.3) gm/dl Hct 27.2 L (30.3-42.9) % MCV 77 L (79-97) fl MCH 24 L (28-32) pg RDW 18.5 H (13.2-15.2) % POC ABG pH 7.530 H (7.35-7.45) POC ABG pCO2 34.7 L (35-45) POC ABG pO2 136 H (80-105) BUN 36 H (7-17) mg/dL Creatinine 5.6 H (0.7-1.2) mg/dL Glucose (65-100) mg/dL POC Glucose (70-105)
--- NOTE | 2017-06-23 10:23 | Progress Note ---
Assessment and Plan Acute respiratory failure, hypoxia/hypercapnea Hyperparathyroidism s/p parathyroidectomy Sepsis. Currently completing antibiotics. Improving, see ID recommendations Morbid obesity ESRD Laryngeal edema/stridor. Resolved Acute CVA. Left MCA stroke. Reviewed, neurologically improving Rec: Continue antibiotics Monitor for fever Spontaneous breathing trial and progress patient has tolerated DVT prophylaxis Nutritional support No family available for case discussion. Critical care time was 31 minutes minutes of [id number] evaluation coordination of care Subjective Date of service: 06/23/17 Principal diagnosis: ARM/MV/Post hyperparathy./ESRD Interval history: Intubated, alert not following instructions Objective Vital Signs - 12hr 06/22/17 06/22/17 06/22/17 23:00 23:10 23:16 Temperature Pulse Rate 64 60 Respiratory 16 Rate Blood Pressure 119/51 119/51 O2 Sat by Pulse 100 100 Oximetry O2 Sat by Pulse 100 Oximetry [ Assessment] 06/23/17 06/23/17 06/23/17 00:00 00:38 01:00 Temperature 98.9 F Pulse Rate 63 63 63 Respiratory 16 16 16 Rate Blood Pressure 107/45 107/45 102/47 O2 Sat by Pulse 100 100 100 Oximetry O2 Sat by Pulse Oximetry [ Assessment] 06/23/17 06/23/17 06/23/17 02:00 03:00 03:49 Temperature 99.0 F Pulse Rate 60 62 Respiratory 16 16 Rate Blood Pressure 95/41 104/49 O2 Sat by Pulse 100 100 Oximetry O2 Sat by Pulse Oximetry [ Assessment] 06/23/17 06/23/17 06/23/17 04:00 04:42 05:00 Temperature Pulse Rate 64 66 63 Respiratory 15 16 Rate Blood Pressure 107/46 107/46 103/45 O2 Sat by Pulse 100 100 100 Oximetry O2 Sat by Pulse Oximetry [ Assessment] 06/23/17 06/23/17 06/23/17 06:00 07:00 07:35 Temperature Pulse Rate 63 68 64 Respiratory 16 16 Rate Blood Pressure 119/53 119/53 121/52 O2 Sat by Pulse 100 100 100 Oximetry O2 Sat by Pulse Oximetry [ Assessment] 06/23/17 06/23/17 06/23/17 08:00 08:12 09:00 Temperature 98.4 F Pulse Rate 73 79 Respiratory 16 27 H Rate Blood Pressure 121/52 119/50 O2 Sat by Pulse 100 100 Oximetry O2 Sat by Pulse 100 Oximetry [ Assessment] Constitutional: no acute distress, alert, other (intubated) Eyes: non-icteric ENT: other (orally intubated) Neck: supple, no JVD, other Effort: normal Ascultation: Bilateral: clear, diminished breath sounds Percussion: Bilateral: not dull Cardiovascular: regular rate and rhythm Gastrointestinal: normoactive bowel sounds, soft, non-tender, non-distended, other (obese, now with peg tube in place) Integumentary: normal Extremities: no cyanosis, no edema, pink and warm, edema Neurologic: other (open eyes spontaneously but not fully oriented, hemiparesis, GCS 5-6) Psychiatric: mood appropriate, affect normal CBC and BMP: 06/23/17 02:49 06/23/17 02:49 ABG, PT/INR, D-dimer: ABG POC ABG pH 7.530 (7.35-7.45) H 06/23/17 04:45 ABG pH 7.438 pH Units (7.350-7.450) 06/22/17 05:00 POC ABG pCO2 34.7 (35-45) L 06/23/17 04:45 ABG pCO2 42.6 mm Hg 06/22/17 05:00 POC ABG pO2 136 (80-105) H 06/23/17 04:45 ABG pO2 110.7 mm Hg (80.0-90.0) H 06/22/17 05:00 POC ABG HCO3 29.0 06/23/17 04:45 POC ABG Total CO2 30 06/23/17 04:45 POC ABG O2 Sat 99 06/23/17 04:45 ABG O2 Saturation 98.1 % (95.0-99.0) 06/22/17 05:00 PT/INR, D-dimer PT 15.2 Sec. (12.2-14.9) H 06/21/17 05:45 INR 1.14 (0.87-1.13) H 06/21/17 05:45 Abnormal lab findings: Abnormal Labs 06/04/17 06/04/17 06/04/17 00:01 12:50 13:55 WBC 11.4 H RBC Hgb Hct POC Hct MCV 76 L MCH [address] [facility] % (Auto) [facility] # Seg Neutrophils % Seg Neuts % (Manual) 89.0 H Lymphocytes % (Manual) 6.0 L Monocytes % (Manual) Nucleated RBC % Seg Neutrophils # Seg Neutrophils # Man 10.1 H Lymphocytes # (Manual) 0.7 L Monocytes # (Manual) Eosinophils # (Manual) Basophils # (Manual) PT INR POC ABG pH ABG pH POC ABG pCO2 POC ABG pO2 ABG pO2 ABG HCO3 ABG O2 Saturation ABG Base Excess ABG Hemoglobin POC Sodium POC Potassium Sodium Potassium 5.1 H 5.2 H Chloride Carbon Dioxide POC BUN BUN 48 H Creatinine 6.2 H Glucose POC Glucose Calcium ALT C-Reactive Protein Total Protein Albumin PTH Pre-Incision PTH Post-Excision 06/04/17 06/04/17 06/04/17 13:55 16:10 16:16 WBC RBC Hgb Hct POC Hct 37 L MCV MCH RDW [facility] % (Auto) [facility] # Seg Neutrophils % Seg Neuts % (Manual) Lymphocytes % (Manual) Monocytes % (Manual) Nucleated RBC % Seg Neutrophils # Seg Neutrophils # Man Lymphocytes # (Manual) Monocytes # (Manual) Eosinophils # (Manual) Basophils # (Manual) PT INR POC ABG pH 7.306 L ABG pH POC ABG pCO2 58.7 H POC ABG pO2 338 H ABG pO2 ABG HCO3 ABG O2 Saturation ABG Base Excess ABG Hemoglobin POC Sodium 135 L POC Potassium 5.2 H Sodium Potassium Chloride Carbon Dioxide POC BUN 44 H BUN Creatinine Glucose POC Glucose 183 H Calcium ALT C-Reactive Protein Total Protein Albumin PTH Pre-Incision 641.9 H PTH Post-Excision 154.7 H 06/04/17 06/04/17 06/04/17 16:22 20:44 21:29 WBC RBC Hgb Hct POC Hct MCV MCH RDW [facility] % (Auto) [facility] # Seg Neutrophils % Seg Neuts % (Manual) Lymphocytes % (Manual) Monocytes % (Manual) Nucleated RBC % Seg Neutrophils # Seg Neutrophils # Man Lymphocytes # (Manual) Monocytes # (Manual) Eosinophils # (Manual) Basophils # (Manual) PT INR POC ABG pH 7.484 H ABG pH POC ABG pCO2 POC ABG pO2 ABG pO2 ABG HCO3 ABG O2 Saturation ABG Base Excess ABG Hemoglobin POC Sodium 137 L POC Potassium 5.3 H Sodium Potassium 5.2 H Chloride Carbon Dioxide POC BUN 45 H BUN 51 H Creatinine 6.5 H Glucose 119 H POC Glucose 176 H Calcium ALT C-Reactive Protein Total Protein Albumin PTH Pre-Incision PTH Post-Excision 06/05/17 06/05/17 06/05/17 03:31 11:44 11:44 WBC 13.4 H RBC Hgb Hct POC Hct MCV 75 L MCH [address] [facility] % (Auto) [facility] # Seg Neutrophils % Seg Neuts % (Manual) Lymphocytes % (Manual) Monocytes % (Manual) Nucleated RBC % Seg Neutrophils # Seg Neutrophils # Man Lymphocytes # (Manual) Monocytes # (Manual) Eosinophils # (Manual) Basophils # (Manual) PT INR POC ABG pH ABG pH POC ABG pCO2 POC ABG pO2 75 L ABG pO2 ABG HCO3 ABG O2 Saturation ABG Base Excess ABG Hemoglobin POC Sodium POC Potassium Sodium Potassium 5.8 H Chloride Carbon Dioxide POC BUN BUN 56 H Creatinine 7.0 H Glucose 111 H POC Glucose Calcium 8.2 L ALT C-Reactive Protein Total Protein 6.2 L Albumin 3.1 L PTH Pre-Incision PTH Post-Excision 06/06/17 06/06/17 06/07/17 05:07 07:13 03:53 WBC RBC Hgb Hct POC Hct MCV MCH RDW [facility] % (Auto) [facility] # Seg Neutrophils % Seg Neuts % (Manual) Lymphocytes % (Manual) Monocytes % (Manual) Nucleated RBC % Seg Neutrophils # Seg Neutrophils # Man Lymphocytes # (Manual) Monocytes # (Manual) Eosinophils # (Manual) Basophils # (Manual) PT INR POC ABG pH ABG pH POC ABG pCO2 POC ABG pO2 116 H 137 H ABG pO2 ABG HCO3 ABG O2 Saturation ABG Base Excess ABG Hemoglobin POC Sodium POC Potassium Sodium Potassium Chloride Carbon Dioxide POC BUN BUN 32 H Creatinine 4.9 H Glucose 115 H POC Glucose Calcium 7.9 L ALT C-Reactive Protein Total Protein 5.7 L Albumin 3.3 L PTH Pre-Incision PTH Post-Excision 06/07/17 06/07/17 06/07/17 05:21 05:21 16:54 WBC RBC Hgb Hct POC Hct MCV 75 L MCH [address] [facility] % (Auto) [facility] # Seg Neutrophils % Seg Neuts % (Manual) Lymphocytes % (Manual) Monocytes % (Manual) Nucleated RBC % Seg Neutrophils # Seg Neutrophils # Man Lymphocytes # (Manual) Monocytes # (Manual) Eosinophils # (Manual) Basophils # (Manual) PT INR POC ABG pH ABG pH POC ABG pCO2 POC ABG pO2 ABG pO2 ABG HCO3 ABG O2 Saturation ABG Base Excess ABG Hemoglobin POC Sodium POC Potassium Sodium Potassium 5.4 H Chloride Carbon Dioxide POC BUN BUN 52 H Creatinine 6.2 H Glucose 107 H POC Glucose 110 H Calcium 8.0 L ALT C-Reactive Protein Total Protein Albumin PTH Pre-Incision PTH Post-Excision 06/07/17 06/07/17 06/08/17 17:38 23:32 04:00 WBC RBC Hgb Hct POC Hct MCV 77 L MCH [address] [facility] % (Auto) [facility] # Seg Neutrophils % Seg Neuts % (Manual) 78.0 H Lymphocytes % (Manual) Monocytes % (Manual) Nucleated RBC % 3.0 H Seg Neutrophils # Seg Neutrophils # Man 7.8 H Lymphocytes # (Manual) Monocytes # (Manual) Eosinophils # (Manual) Basophils # (Manual) PT INR POC ABG pH 7.310 L ABG pH POC ABG pCO2 51.9 H POC ABG pO2 ABG pO2 ABG HCO3 ABG O2 Saturation ABG Base Excess ABG Hemoglobin POC Sodium POC Potassium Sodium Potassium Chloride Carbon Dioxide POC BUN BUN Creatinine Glucose POC Glucose 63 L Calcium ALT C-Reactive Protein Total Protein Albumin PTH Pre-Incision PTH Post-Excision 06/08/17 06/08/17 06/08/17 04:00 10:51 11:25 WBC RBC Hgb Hct POC Hct MCV MCH RDW [facility] % (Auto) [facility] # Seg Neutrophils % Seg Neuts % (Manual) Lymphocytes % (Manual) Monocytes % (Manual) Nucleated RBC % Seg Neutrophils # Seg Neutrophils # Man Lymphocytes # (Manual) Monocytes # (Manual) Eosinophils # (Manual) Basophils # (Manual) PT INR POC ABG pH 7.336 L ABG pH POC ABG pCO2 55.1 H POC ABG pO2 ABG pO2 ABG HCO3 ABG O2 Saturation ABG Base Excess ABG Hemoglobin POC Sodium POC Potassium Sodium Potassium Chloride 96.9 L Carbon Dioxide POC BUN BUN 29 H Creatinine 4.6 H Glucose POC Glucose 108 H Calcium 8.3 L ALT C-Reactive Protein Total Protein Albumin PTH Pre-Incision PTH Post-Excision 06/08/17 06/09/17 06/09/17 14:22 11:42 11:42 WBC RBC Hgb Hct POC Hct MCV 76 L MCH [address] [facility] % (Auto) [facility] # Seg Neutrophils % Seg Neuts % (Manual) 80.0 H Lymphocytes % (Manual) 10.0 L Monocytes % (Manual) Nucleated RBC % 2.0 H Seg Neutrophils # Seg Neutrophils # Man Lymphocytes # (Manual) 1.0 L Monocytes # (Manual) Eosinophils # (Manual) Basophils # (Manual) PT INR POC ABG pH ABG pH POC ABG pCO2 52.8 H POC ABG pO2 77 L ABG pO2 ABG HCO3 ABG O2 Saturation ABG Base Excess ABG Hemoglobin POC Sodium POC Potassium Sodium Potassium 5.4 H D Chloride 97.1 L Carbon Dioxide POC BUN BUN 58 H Creatinine 6.6 H Glucose POC Glucose Calcium 7.2 L ALT C-Reactive Protein Total Protein Albumin PTH Pre-Incision PTH Post-Excision 06/09/17 06/10/17 06/10/17 12:04 03:29 03:29 WBC 13.7 H RBC Hgb Hct POC Hct MCV 77 L MCH [address] [facility] % (Auto) [facility] # Seg Neutrophils % Seg Neuts % (Manual) 82.0 H Lymphocytes % (Manual) 7.0 L Monocytes % (Manual) Nucleated RBC % 6.0 H Seg Neutrophils # Seg Neutrophils # Man 11.2 H Lymphocytes # (Manual) 1.0 L Monocytes # (Manual) Eosinophils # (Manual) Basophils # (Manual) PT INR POC ABG pH ABG pH POC ABG pCO2 POC ABG pO2 ABG pO2 ABG HCO3 ABG O2 Saturation ABG Base Excess ABG Hemoglobin POC Sodium POC Potassium Sodium Potassium Chloride 94.2 L Carbon Dioxide POC BUN BUN 32 H Creatinine 4.6 H Glucose 106 H POC Glucose 106 H Calcium 8.0 L ALT C-Reactive Protein Total Protein Albumin PTH Pre-Incision PTH Post-Excision 06/10/17 06/11/17 06/11/17 05:27 06:00 06:00 WBC 11.8 H RBC Hgb Hct POC Hct MCV 77 L MCH [address] [facility] % (Auto) [facility] # Seg Neutrophils % Seg Neuts % (Manual) 88.0 H Lymphocytes % (Manual) 7.0 L Monocytes % (Manual) Nucleated RBC % 1.0 H Seg Neutrophils # Seg Neutrophils # Man 10.4 H Lymphocytes # (Manual) 0.8 L Monocytes # (Manual) Eosinophils # (Manual) Basophils # (Manual) PT INR POC ABG pH ABG pH POC ABG pCO2 POC ABG pO2 ABG pO2 ABG HCO3 ABG O2 Saturation ABG Base Excess ABG Hemoglobin POC Sodium POC Potassium Sodium Potassium Chloride Carbon Dioxide POC BUN BUN 53 H Creatinine 6.0 H Glucose POC Glucose 106 H Calcium 6.3 L D ALT C-Reactive Protein Total Protein Albumin PTH Pre-Incision PTH Post-Excision 06/11/17 06/11/17 06/11/17 06:51 12:10 16:54 WBC RBC Hgb Hct POC Hct MCV MCH RDW [facility] % (Auto) [facility] # Seg Neutrophils % Seg Neuts % (Manual) Lymphocytes % (Manual) Monocytes % (Manual) Nucleated RBC % Seg Neutrophils # Seg Neutrophils # Man Lymphocytes # (Manual) Monocytes # (Manual) Eosinophils # (Manual) Basophils # (Manual) PT INR POC ABG pH 7.556 H ABG pH POC ABG pCO2 34.8 L POC ABG pO2 125 H ABG pO2 ABG HCO3 ABG O2 Saturation ABG Base Excess ABG Hemoglobin POC Sodium POC Potassium Sodium Potassium Chloride Carbon Dioxide POC BUN BUN Creatinine Glucose POC Glucose 115 H 106 H Calcium ALT C-Reactive Protein Total Protein Albumin PTH Pre-Incision PTH Post-Excision 06/11/17 06/12/17 06/12/17 20:20 00:06 04:20 WBC RBC Hgb Hct POC Hct MCV MCH RDW [facility] % (Auto) [facility] # Seg Neutrophils % Seg Neuts % (Manual) Lymphocytes % (Manual) Monocytes % (Manual) Nucleated RBC % Seg Neutrophils # Seg Neutrophils # Man Lymphocytes # (Manual) Monocytes # (Manual) Eosinophils # (Manual) Basophils # (Manual) PT INR POC ABG pH ABG pH 7.512 H 7.514 H POC ABG pCO2 POC ABG pO2 ABG pO2 148.5 H 209.1 H ABG HCO3 ABG O2 Saturation 99.3 H ABG Base Excess ABG Hemoglobin POC Sodium POC Potassium Sodium Potassium Chloride Carbon Dioxide POC BUN BUN Creatinine Glucose POC Glucose 108 H Calcium ALT C-Reactive Protein Total Protein Albumin PTH Pre-Incision PTH Post-Excision 06/12/17 06/12/17 06/12/17 05:24 05:30 05:30 WBC 14.3 H RBC Hgb Hct POC Hct MCV 75 L MCH [address] [facility] % (Auto) [facility] # Seg Neutrophils % Seg Neuts % (Manual) 73.0 H Lymphocytes % (Manual) 6.0 L Monocytes % (Manual) 9.0 H Nucleated RBC % 1.0 H Seg Neutrophils # Seg Neutrophils # Man 10.4 H Lymphocytes # (Manual) 0.9 L Monocytes # (Manual) 1.3 H Eosinophils # (Manual) Basophils # (Manual) PT INR POC ABG pH ABG pH POC ABG pCO2 POC ABG pO2 ABG pO2 ABG HCO3 ABG O2 Saturation ABG Base Excess ABG Hemoglobin POC Sodium POC Potassium Sodium 131 L D Potassium Chloride 90.6 L Carbon Dioxide POC BUN BUN 51 H Creatinine 6.5 H Glucose POC Glucose 109 H Calcium ALT C-Reactive Protein Total Protein Albumin PTH Pre-Incision PTH Post-Excision 06/12/17 06/13/17 06/13/17 11:46 04:15 04:55 WBC 17.9 H RBC Hgb Hct POC Hct MCV 75 L MCH [address] [facility] % (Auto) [facility] # Seg Neutrophils % Seg Neuts % (Manual) 75.0 H Lymphocytes % (Manual) 6.0 L Monocytes % (Manual) 9.0 H Nucleated RBC % Seg Neutrophils # Seg Neutrophils # Man 13.4 H Lymphocytes # (Manual) 1.1 L Monocytes # (Manual) 1.6 H Eosinophils # (Manual) 0.5 H Basophils # (Manual) 0.2 H PT INR POC ABG pH ABG pH POC ABG pCO2 POC ABG pO2 ABG pO2 131.0 H ABG HCO3 ABG O2 Saturation ABG Base Excess ABG Hemoglobin 10.5 L POC Sodium POC Potassium Sodium Potassium Chloride Carbon Dioxide POC BUN BUN Creatinine Glucose POC Glucose 116 H Calcium ALT C-Reactive Protein Total Protein Albumin PTH Pre-Incision PTH Post-Excision 06/13/17 06/13/17 06/14/17 04:55 17:23 04:30 WBC 17.8 H RBC Hgb 9.7 L Hct POC Hct MCV 76 L MCH [address] [facility] % (Auto) [facility] # Seg Neutrophils % Seg Neuts % (Manual) 74.0 H Lymphocytes % (Manual) 6.0 L Monocytes % (Manual) 9.0 H Nucleated RBC % Seg Neutrophils # Seg Neutrophils # Man 13.2 H Lymphocytes # (Manual) 1.1 L Monocytes # (Manual) 1.6 H Eosinophils # (Manual) Basophils # (Manual) PT INR POC ABG pH ABG pH POC ABG pCO2 POC ABG pO2 ABG pO2 ABG HCO3 ABG O2 Saturation ABG Base Excess ABG Hemoglobin POC Sodium POC Potassium Sodium 128 L Potassium Chloride 88.9 L Carbon Dioxide POC BUN BUN 73 H Creatinine 7.6 H Glucose 115 H POC Glucose 113 H Calcium 8.1 L ALT C-Reactive Protein Total Protein Albumin PTH Pre-Incision PTH Post-Excision 06/14/17 06/14/17 06/14/17 04:30 05:30 05:49 WBC RBC Hgb Hct POC Hct MCV MCH RDW [facility] % (Auto) [facility] # Seg Neutrophils % Seg Neuts % (Manual) Lymphocytes % (Manual) Monocytes % (Manual) Nucleated RBC % Seg Neutrophils # Seg Neutrophils # Man Lymphocytes # (Manual) Monocytes # (Manual) Eosinophils # (Manual) Basophils # (Manual) PT INR POC ABG pH ABG pH POC ABG pCO2 POC ABG pO2 ABG pO2 109.3 H ABG HCO3 ABG O2 Saturation ABG Base Excess ABG Hemoglobin 10.7 L POC Sodium POC Potassium Sodium 124 L Potassium Chloride 84.3 L Carbon Dioxide POC BUN BUN 86 H Creatinine 9.0 H Glucose 106 H POC Glucose 111 H Calcium 8.1 L ALT C-Reactive Protein Total Protein Albumin PTH Pre-Incision PTH Post-Excision 06/14/17 06/14/17 06/14/17 12:27 16:05 23:35 WBC RBC Hgb Hct POC Hct MCV MCH RDW [facility] % (Auto) [facility] # Seg Neutrophils % Seg Neuts % (Manual) Lymphocytes % (Manual) Monocytes % (Manual) Nucleated RBC % Seg Neutrophils # Seg Neutrophils # Man Lymphocytes # (Manual) Monocytes # (Manual) Eosinophils # (Manual) Basophils # (Manual) PT INR POC ABG pH ABG pH POC ABG pCO2 POC ABG pO2 ABG pO2 ABG HCO3 ABG O2 Saturation ABG Base Excess ABG Hemoglobin POC Sodium POC Potassium Sodium Potassium Chloride Carbon Dioxide POC BUN BUN Creatinine Glucose POC Glucose 139 H 133 H 147 H Calcium ALT C-Reactive Protein Total Protein Albumin PTH Pre-Incision PTH Post-Excision 06/15/17 06/15/17 06/15/17 05:05 06:00 06:00 WBC 21.4 H RBC Hgb 9.2 L Hct POC Hct MCV 77 L MCH [address] [facility] % (Auto) [facility] # Seg Neutrophils % Seg Neuts % (Manual) 86.0 H Lymphocytes % (Manual) 2.0 L Monocytes % (Manual) Nucleated RBC % 1.0 H Seg Neutrophils # Seg Neutrophils # Man 18.4 H Lymphocytes # (Manual) 0.4 L Monocytes # (Manual) 1.5 H Eosinophils # (Manual) Basophils # (Manual) PT INR POC ABG pH ABG pH POC ABG pCO2 POC ABG pO2 ABG pO2 ABG HCO3 ABG O2 Saturation ABG Base Excess ABG Hemoglobin POC Sodium POC Potassium Sodium 132 L D Potassium Chloride 91.5 L Carbon Dioxide POC BUN BUN 59 H Creatinine 6.6 H Glucose 116 H POC Glucose 145 H Calcium ALT C-Reactive Protein Total Protein Albumin PTH Pre-Incision PTH Post-Excision 06/15/17 06/15/17 06/15/17 12:04 17:55 23:40 WBC RBC Hgb Hct POC Hct MCV MCH RDW [facility] % (Auto) [facility] # Seg Neutrophils % Seg Neuts % (Manual) Lymphocytes % (Manual) Monocytes % (Manual) Nucleated RBC % Seg Neutrophils # Seg Neutrophils # Man Lymphocytes # (Manual) Monocytes # (Manual) Eosinophils # (Manual) Basophils # (Manual) PT INR POC ABG pH ABG pH POC ABG pCO2 POC ABG pO2 ABG pO2 ABG HCO3 ABG O2 Saturation ABG Base Excess ABG Hemoglobin POC Sodium POC Potassium Sodium Potassium Chloride Carbon Dioxide POC BUN BUN Creatinine Glucose POC Glucose 109 H 119 H 123 H Calcium ALT C-Reactive Protein Total Protein Albumin PTH Pre-Incision PTH Post-Excision 06/15/17 06/16/17 06/16/17 Unknown 06:00 08:45 WBC 21.9 H RBC Hgb 8.9 L Hct 29.0 L POC Hct MCV 77 L MCH [address] [facility] % (Auto) 11.[address] [facility] # 1.6 H Seg Neutrophils % 82.8 H Seg Neuts % (Manual) 78.0 H Lymphocytes % (Manual) 3.0 L Monocytes % (Manual) 9.0 H Nucleated RBC % 1.0 H Seg Neutrophils # 12.2 H Seg Neutrophils # Man 17.1 H Lymphocytes # (Manual) 0.7 L Monocytes # (Manual) 2.0 H Eosinophils # (Manual) Basophils # (Manual) 0.2 H PT INR POC ABG pH ABG pH POC ABG pCO2 POC ABG pO2 ABG pO2 115.7 H ABG HCO3 27.6 H ABG O2 Saturation ABG Base Excess ABG Hemoglobin 9.2 L POC Sodium POC Potassium Sodium Potassium 2.7 L* D Chloride 111.6 H Carbon Dioxide 17 L D POC BUN BUN 52 H Creatinine 5.0 H Glucose POC Glucose Calcium 5.3 L* D ALT C-Reactive Protein Total Protein Albumin PTH Pre-Incision PTH Post-Excision 06/16/17 06/16/17 06/16/17 09:25 11:00 12:07 WBC RBC Hgb Hct POC Hct MCV MCH RDW [facility] % (Auto) [facility] # Seg Neutrophils % Seg Neuts % (Manual) Lymphocytes % (Manual) Monocytes % (Manual) Nucleated RBC % Seg Neutrophils # Seg Neutrophils # Man Lymphocytes # (Manual) Monocytes # (Manual) Eosinophils # (Manual) Basophils # (Manual) PT INR POC ABG pH ABG pH POC ABG pCO2 POC ABG pO2 ABG pO2 102.0 H ABG HCO3 27.1 H ABG O2 Saturation ABG Base Excess ABG Hemoglobin 9.0 L POC Sodium POC Potassium Sodium Potassium Chloride 95.2 L Carbon Dioxide POC BUN BUN 60 H Creatinine 6.3 H Glucose 114 H POC Glucose 111 H Calcium 10.6 H D ALT C-Reactive Protein Total Protein Albumin PTH Pre-Incision PTH Post-Excision 06/16/17 06/16/17 06/17/17 17:20 17:51 00:10 WBC RBC Hgb Hct POC Hct MCV MCH RDW [facility] % (Auto) [facility] # Seg Neutrophils % Seg Neuts % (Manual) Lymphocytes % (Manual) Monocytes % (Manual) Nucleated RBC % Seg Neutrophils # Seg Neutrophils # Man Lymphocytes # (Manual) Monocytes # (Manual) Eosinophils # (Manual) Basophils # (Manual) PT INR POC ABG pH ABG pH POC ABG pCO2 POC ABG pO2 ABG pO2 ABG HCO3 ABG O2 Saturation ABG Base Excess ABG Hemoglobin POC Sodium POC Potassium Sodium Potassium Chloride 97.4 L Carbon Dioxide POC BUN BUN 35 H Creatinine 4.4 H Glucose 116 H POC Glucose 128 H 114 H Calcium ALT C-Reactive Protein Total Protein Albumin PTH Pre-Incision PTH Post-Excision 06/17/17 06/17/17 06/18/17 04:00 05:42 08:10 WBC 16.1 H RBC 3.55 L Hgb 8.4 L Hct 27.2 L POC Hct MCV 76 L MCH [address] [facility] % (Auto) [facility] # Seg Neutrophils % Seg Neuts % (Manual) Lymphocytes % (Manual) Monocytes % (Manual) Nucleated RBC % Seg Neutrophils # Seg Neutrophils # Man Lymphocytes # (Manual) Monocytes # (Manual) Eosinophils # (Manual) Basophils # (Manual) PT INR POC ABG pH ABG pH POC ABG pCO2 POC ABG pO2 ABG pO2 ABG HCO3 ABG O2 Saturation ABG Base Excess ABG Hemoglobin POC Sodium POC Potassium Sodium 136 L Potassium Chloride 94.5 L Carbon Dioxide POC BUN BUN 44 H Creatinine 5.3 H Glucose 107 H POC Glucose 110 H Calcium ALT C-Reactive Protein Total Protein Albumin PTH Pre-Incision PTH Post-Excision 06/18/17 06/19/17 06/19/17 08:10 05:23 07:14 WBC 19.3 H RBC Hgb 9.2 L Hct 30.1 L POC Hct MCV 77 L MCH [address] [facility] % (Auto) [facility] # Seg Neutrophils % Seg Neuts % (Manual) Lymphocytes % (Manual) Monocytes % (Manual) Nucleated RBC % Seg Neutrophils # Seg Neutrophils # Man Lymphocytes # (Manual) Monocytes # (Manual) Eosinophils # (Manual) Basophils # (Manual) PT INR POC ABG pH ABG pH POC ABG pCO2 POC ABG pO2 ABG pO2 116.2 H ABG HCO3 28.5 H ABG O2 Saturation ABG Base Excess ABG Hemoglobin 9.1 L POC Sodium POC Potassium Sodium 134 L Potassium Chloride 91.6 L Carbon Dioxide POC BUN BUN 68 H Creatinine 7.2 H Glucose POC Glucose Calcium 10.3 H ALT 6 L C-Reactive Protein Total Protein 5.9 L Albumin 2.8 L PTH Pre-Incision PTH Post-Excision 06/19/17 06/19/17 06/20/17 07:15 23:37 04:40 WBC RBC Hgb Hct POC Hct MCV MCH RDW [facility] % (Auto) [facility] # Seg Neutrophils % Seg Neuts % (Manual) Lymphocytes % (Manual) Monocytes % (Manual) Nucleated RBC % Seg Neutrophils # Seg Neutrophils # Man Lymphocytes # (Manual) Monocytes # (Manual) Eosinophils # (Manual) Basophils # (Manual) PT INR POC ABG pH ABG pH POC ABG pCO2 POC ABG pO2 ABG pO2 ABG HCO3 ABG O2 Saturation ABG Base Excess ABG Hemoglobin POC Sodium POC Potassium Sodium 135 L Potassium Chloride 94.3 L Carbon Dioxide POC BUN BUN 41 H Creatinine 5.4 H Glucose 117 H POC Glucose 152 H 140 H Calcium 10.3 H ALT C-Reactive Protein Total Protein Albumin PTH Pre-Incision PTH Post-Excision 06/21/17 06/21/17 06/21/17 05:13 05:45 05:45 WBC 18.8 H RBC 3.54 L Hgb 8.2 L Hct 27.6 L POC Hct MCV 78 L MCH [address] [facility] % (Auto) [facility] # Seg Neutrophils % Seg Neuts % (Manual) Lymphocytes % (Manual) Monocytes % (Manual) Nucleated RBC % Seg Neutrophils # Seg Neutrophils # Man Lymphocytes # (Manual) Monocytes # (Manual) Eosinophils # (Manual) Basophils # (Manual) PT 15.2 H INR 1.14 H POC ABG pH ABG pH POC ABG pCO2 POC ABG pO2 ABG pO2 ABG HCO3 ABG O2 Saturation ABG Base Excess ABG Hemoglobin POC Sodium POC Potassium Sodium Potassium Chloride Carbon Dioxide POC BUN BUN Creatinine Glucose POC Glucose 140 H Calcium ALT C-Reactive Protein Total Protein Albumin PTH Pre-Incision PTH Post-Excision 06/21/17 06/21/17 06/21/17 05:45 08:28 23:21 WBC RBC Hgb Hct POC Hct MCV MCH RDW [facility] % (Auto) [facility] # Seg Neutrophils % Seg Neuts % (Manual) Lymphocytes % (Manual) Monocytes % (Manual) Nucleated RBC % Seg Neutrophils # Seg Neutrophils # Man Lymphocytes # (Manual) Monocytes # (Manual) Eosinophils # (Manual) Basophils # (Manual) PT INR POC ABG pH ABG pH POC ABG pCO2 POC ABG pO2 ABG pO2 ABG HCO3 ABG O2 Saturation ABG Base Excess ABG Hemoglobin POC Sodium POC Potassium Sodium Potassium Chloride 95.5 L Carbon Dioxide POC BUN BUN 38 H Creatinine 4.8 H Glucose 126 H POC Glucose 117 H Calcium ALT C-Reactive Protein 13.60 H Total Protein Albumin PTH Pre-Incision PTH Post-Excision 06/22/17 06/22/17 06/22/17 04:53 05:00 11:49 WBC RBC Hgb Hct POC Hct MCV MCH RDW [facility] % (Auto) [facility] # Seg Neutrophils % Seg Neuts % (Manual) Lymphocytes % (Manual) Monocytes % (Manual) Nucleated RBC % Seg Neutrophils # Seg Neutrophils # Man Lymphocytes # (Manual) Monocytes # (Manual) Eosinophils # (Manual) Basophils # (Manual) PT INR POC ABG pH ABG pH POC ABG pCO2 POC ABG pO2 ABG pO2 110.7 H ABG HCO3 28.2 H ABG O2 Saturation ABG Base Excess 3.7 H ABG Hemoglobin 8.9 L POC Sodium POC Potassium Sodium Potassium Chloride Carbon Dioxide POC BUN BUN Creatinine Glucose POC Glucose 111 H 123 H Calcium ALT C-Reactive Protein Total Protein Albumin PTH Pre-Incision PTH Post-Excision 06/22/17 06/22/17 06/23/17 11:59 11:59 02:49 WBC 15.4 H 12.1 H RBC 3.53 L Hgb 8.6 L 8.4 L Hct 28.4 L 27.2 L POC Hct MCV 77 L 77 L MCH 23 L 24 L RDW 18.[address] [facility] % (Auto) [facility] # Seg Neutrophils % Seg Neuts % (Manual) Lymphocytes % (Manual) Monocytes % (Manual) Nucleated RBC % Seg Neutrophils # Seg Neutrophils # Man Lymphocytes # (Manual) Monocytes # (Manual) Eosinophils # (Manual) Basophils # (Manual) PT INR POC ABG pH ABG pH POC ABG pCO2 POC ABG pO2 ABG pO2 ABG HCO3 ABG O2 Saturation ABG Base Excess ABG Hemoglobin POC Sodium POC Potassium Sodium Potassium Chloride Carbon Dioxide POC BUN BUN 25 H Creatinine 4.2 H Glucose 101 H POC Glucose Calcium ALT C-Reactive Protein Total Protein Albumin PTH Pre-Incision PTH Post-Excision 06/23/17 06/23/17 02:49 04:45 WBC RBC Hgb Hct POC Hct MCV MCH RDW [facility] % (Auto) [facility] # Seg Neutrophils % Seg Neuts % (Manual) Lymphocytes % (Manual) Monocytes % (Manual) Nucleated RBC % Seg Neutrophils # Seg Neutrophils # Man Lymphocytes # (Manual) Monocytes # (Manual) Eosinophils # (Manual) Basophils # (Manual) PT INR POC ABG pH 7.530 H ABG pH POC ABG pCO2 34.7 L POC ABG pO2 136 H ABG pO2 ABG HCO3 ABG O2 Saturation ABG Base Excess ABG Hemoglobin POC Sodium POC Potassium Sodium Potassium Chloride Carbon Dioxide POC BUN BUN 36 H Creatinine 5.6 H Glucose POC Glucose Calcium ALT C-Reactive Protein Total Protein Albumin PTH Pre-Incision PTH Post-Excision
[2017-06-23] MEDS: PEPCID PO SCH (10:26)
[2017-06-23] MEDS: HEPARIN SUB-Q SCH ×2 (10:26→22:27)
[2017-06-23] MEDS: BABY ASPIRIN PO SCH (10:26)
[2017-06-23] MEDS: TUMS PO SCH ×3 (10:33→20:14)
[2017-06-23] MEDS: ROCALTROL PO SCH (10:34)
[2017-06-23] MEDS: ROCEPHIN/NS 2 GM/100 ML 2 GM/100 ML BAG IV SCH (10:36)
[2017-06-23 19:20] LABS: ISTAT Base Excess 8; ISTAT PCO2 38.8 (35-45); ISTAT PH 7.511 (7.35-7.45); ISTAT PO2 111 (80-105); ISTAT SO2 99; ISTAT TCO2 32
[2017-06-24 05:40] LABS: Hematocrit 29.9 % (30.3-42.9); Hemoglobin 9.5 gm/dl (10.1-14.3); Mean Corpuscular HGB Conc 32 % (30-34); Mean Corpuscular Volume 77 fl (79-97); Platelet Count 265 K/mm3 (140-440); Red Blood Count 3.91 M/mm3 (3.65-5.03); Red Cell Distribution Width 18.4 % (13.2-15.2)
[2017-06-24 05:43] LABS: Mean Corpuscular Hemoglobin 24 pg (28-32)
[2017-06-24 06:05] LABS: Calcium 10.8 mg/dL (8.4-10.2); Chloride 94.8 mmol/L (98-107); Potassium 3.9 mmol/L (3.6-5.0)
--- NOTE | 2017-06-24 07:43 | Progress Note ---
Assessment and Plan Acute respiratory failure, hypoxia/hypercapnea. Tolerating spontaneous breathing trial today down to 8/5 cm H2O Hyperparathyroidism s/p parathyroidectomy Hypophospathemia Hypercalemia Sepsis. Currently completing antibiotics. No fever Morbid obesity ESRD Laryngeal edema/stridor. Resolved/tracheotomy Acute CVA. Left MCA stroke. Neurologically, she appears to be slowly improving Rec: Continue antibiotics Monitor BP. Did not had her medications this morning PO4 replacement We'll hold by mouth calcium and monitor laboratories Spontaneous breathing trial and progress patient has tolerated DVT prophylaxis Nutritional support No family available at the bedside. Critical care time was 31 minutes minutes of [id number] evaluation coordination of care Subjective Date of service: 06/24/17 Principal diagnosis: ARM/MV/Post hyperparathy./ESRD Interval history: Alert. Follows commands very little Objective Vital Signs - 12hr 06/23/17 06/23/17 06/23/17 19:54 20:00 20:59 Temperature 98.8 F Pulse Rate 76 76 Respiratory 20 15 Rate Blood Pressure 103/54 103/54 O2 Sat by Pulse 100 100 Oximetry O2 Sat by Pulse Oximetry [ Assessment] 06/23/17 06/23/17 06/23/17 21:00 21:16 22:00 Temperature Pulse Rate 75 78 76 Respiratory 16 15 16 Rate Blood Pressure 103/54 89/41 95/58 O2 Sat by Pulse 100 99 100 Oximetry O2 Sat by Pulse Oximetry [ Assessment] 06/23/17 06/24/17 06/24/17 23:00 00:00 00:22 Temperature 98.6 F Pulse Rate 71 71 70 Respiratory 16 16 Rate Blood Pressure 88/44 82/44 82/44 O2 Sat by Pulse 100 100 100 Oximetry O2 Sat by Pulse 100 Oximetry [ Assessment] 06/24/17 06/24/17 06/24/17 01:00 02:00 03:00 Temperature Pulse Rate 69 67 72 Respiratory 16 16 15 Rate Blood Pressure 86/47 97/47 88/47 O2 Sat by Pulse 100 100 100 Oximetry O2 Sat by Pulse Oximetry [ Assessment] 06/24/17 06/24/17 06/24/17 04:00 05:00 06:00 Temperature 99.1 F Pulse Rate 72 73 74 Respiratory 16 16 16 Rate Blood Pressure 93/51 89/51 92/47 O2 Sat by Pulse 100 100 100 Oximetry O2 Sat by Pulse Oximetry [ Assessment] 06/24/17 06:07 Temperature Pulse Rate 75 Respiratory 26 H Rate Blood Pressure 92/47 O2 Sat by Pulse 99 Oximetry O2 Sat by Pulse Oximetry [ Assessment] Constitutional: no acute distress, alert Eyes: non-icteric Neck: supple, no JVD, other (tracheotomy and position, no bleeding) Effort: normal Ascultation: Bilateral: clear, diminished breath sounds Percussion: Bilateral: not dull Cardiovascular: regular rate and rhythm Gastrointestinal: normoactive bowel sounds, soft, non-tender, non-distended, other (obese, ) Integumentary: normal Extremities: no cyanosis, no edema, pink and warm, edema Neurologic: other (open eyes spontaneously but not fully oriented, hemiparesis, GCS 5-6, very slight movement of left upper extremity and lower extremities) Psychiatric: mood appropriate, affect normal CBC and BMP: 06/24/17 05:04 06/24/17 05:04 ABG, PT/INR, D-dimer: ABG POC ABG pH 7.511 (7.35-7.45) H 06/23/17 19:16 ABG pH 7.438 pH Units (7.350-7.450) 06/22/17 05:00 POC ABG pCO2 38.8 (35-45) 06/23/17 19:16 ABG pCO2 42.6 mm Hg 06/22/17 05:00 POC ABG pO2 111 (80-105) H 06/23/17 19:16 ABG pO2 110.7 mm Hg (80.0-90.0) H 06/22/17 05:00 POC ABG HCO3 31.0 06/23/17 19:16 POC ABG Total CO2 32 06/23/17 19:16 POC ABG O2 Sat 99 06/23/17 19:16 ABG O2 Saturation 98.1 % (95.0-99.0) 06/22/17 05:00 PT/INR, D-dimer PT 15.2 Sec. (12.2-14.9) H 06/21/17 05:45 INR 1.14 (0.87-1.13) H 06/21/17 05:45 Abnormal lab findings: Abnormal Labs 06/04/17 06/04/17 06/04/17 00:01 12:50 13:55 WBC 11.4 H RBC Hgb Hct POC Hct MCV 76 L MCH 23 L RDW 18.5 H [place] % (Auto) [place] # Seg Neutrophils % Seg Neuts % (Manual) 89.0 H Lymphocytes % (Manual) 6.0 L Monocytes % (Manual) Nucleated RBC % Seg Neutrophils # Seg Neutrophils # Man 10.1 H Lymphocytes # (Manual) 0.7 L Monocytes # (Manual) Eosinophils # (Manual) Basophils # (Manual) PT INR POC ABG pH ABG pH POC ABG pCO2 POC ABG pO2 ABG pO2 ABG HCO3 ABG O2 Saturation ABG Base Excess ABG Hemoglobin POC Sodium POC Potassium Sodium Potassium 5.1 H 5.2 H Chloride Carbon Dioxide POC BUN BUN 48 H Creatinine 6.2 H Glucose POC Glucose Calcium Phosphorus ALT C-Reactive Protein Total Protein Albumin PTH Pre-Incision PTH Post-Excision Miscellaneous Test 06/04/17 06/04/17 06/04/17 13:55 16:10 16:16 WBC RBC Hgb Hct POC Hct 37 L MCV MCH RDW [place] % (Auto) [place] # Seg Neutrophils % Seg Neuts % (Manual) Lymphocytes % (Manual) Monocytes % (Manual) Nucleated RBC % Seg Neutrophils # Seg Neutrophils # Man Lymphocytes # (Manual) Monocytes # (Manual) Eosinophils # (Manual) Basophils # (Manual) PT INR POC ABG pH 7.306 L ABG pH POC ABG pCO2 58.7 H POC ABG pO2 338 H ABG pO2 ABG HCO3 ABG O2 Saturation ABG Base Excess ABG Hemoglobin POC Sodium 135 L POC Potassium 5.2 H Sodium Potassium Chloride Carbon Dioxide POC BUN 44 H BUN Creatinine Glucose POC Glucose 183 H Calcium Phosphorus ALT C-Reactive Protein Total Protein Albumin PTH Pre-Incision 641.9 H PTH Post-Excision 154.7 H Miscellaneous Test 06/04/17 06/04/17 06/04/17 16:22 20:44 21:29 WBC RBC Hgb Hct POC Hct MCV MCH RDW [place] % (Auto) [place] # Seg Neutrophils % Seg Neuts % (Manual) Lymphocytes % (Manual) Monocytes % (Manual) Nucleated RBC % Seg Neutrophils # Seg Neutrophils # Man Lymphocytes # (Manual) Monocytes # (Manual) Eosinophils # (Manual) Basophils # (Manual) PT INR POC ABG pH 7.484 H ABG pH POC ABG pCO2 POC ABG pO2 ABG pO2 ABG HCO3 ABG O2 Saturation ABG Base Excess ABG Hemoglobin POC Sodium 137 L POC Potassium 5.3 H Sodium Potassium 5.2 H Chloride Carbon Dioxide POC BUN 45 H BUN 51 H Creatinine 6.5 H Glucose 119 H POC Glucose 176 H Calcium Phosphorus ALT C-Reactive Protein Total Protein Albumin PTH Pre-Incision PTH Post-Excision Miscellaneous Test 06/05/17 06/05/17 06/05/17 03:31 11:44 11:44 WBC 13.4 H RBC Hgb Hct POC Hct MCV 75 L MCH 23 L RDW 18.2 H [place] % (Auto) [place] # Seg Neutrophils % Seg Neuts % (Manual) Lymphocytes % (Manual) Monocytes % (Manual) Nucleated RBC % Seg Neutrophils # Seg Neutrophils # Man Lymphocytes # (Manual) Monocytes # (Manual) Eosinophils # (Manual) Basophils # (Manual) PT INR POC ABG pH ABG pH POC ABG pCO2 POC ABG pO2 75 L ABG pO2 ABG HCO3 ABG O2 Saturation ABG Base Excess ABG Hemoglobin POC Sodium POC Potassium Sodium Potassium 5.8 H Chloride Carbon Dioxide POC BUN BUN 56 H Creatinine 7.0 H Glucose 111 H POC Glucose Calcium 8.2 L Phosphorus ALT C-Reactive Protein Total Protein 6.2 L Albumin 3.1 L PTH Pre-Incision PTH Post-Excision Miscellaneous Test 06/06/17 06/06/17 06/07/17 05:07 07:13 03:53 WBC RBC Hgb Hct POC Hct MCV MCH RDW [place] % (Auto) [place] # Seg Neutrophils % Seg Neuts % (Manual) Lymphocytes % (Manual) Monocytes % (Manual) Nucleated RBC % Seg Neutrophils # Seg Neutrophils # Man Lymphocytes # (Manual) Monocytes # (Manual) Eosinophils # (Manual) Basophils # (Manual) PT INR POC ABG pH ABG pH POC ABG pCO2 POC ABG pO2 116 H 137 H ABG pO2 ABG HCO3 ABG O2 Saturation ABG Base Excess ABG Hemoglobin POC Sodium POC Potassium Sodium Potassium Chloride Carbon Dioxide POC BUN BUN 32 H Creatinine 4.9 H Glucose 115 H POC Glucose Calcium 7.9 L Phosphorus ALT C-Reactive Protein Total Protein 5.7 L Albumin 3.3 L PTH Pre-Incision PTH Post-Excision Miscellaneous Test 06/07/17 06/07/17 06/07/17 05:21 05:21 16:54 WBC RBC Hgb Hct POC Hct MCV 75 L MCH 24 L RDW 18.7 H [place] % (Auto) [place] # Seg Neutrophils % Seg Neuts % (Manual) Lymphocytes % (Manual) Monocytes % (Manual) Nucleated RBC % Seg Neutrophils # Seg Neutrophils # Man Lymphocytes # (Manual) Monocytes # (Manual) Eosinophils # (Manual) Basophils # (Manual) PT INR POC ABG pH ABG pH POC ABG pCO2 POC ABG pO2 ABG pO2 ABG HCO3 ABG O2 Saturation ABG Base Excess ABG Hemoglobin POC Sodium POC Potassium Sodium Potassium 5.4 H Chloride Carbon Dioxide POC BUN BUN 52 H Creatinine 6.2 H Glucose 107 H POC Glucose 110 H Calcium 8.0 L Phosphorus ALT C-Reactive Protein Total Protein Albumin PTH Pre-Incision PTH Post-Excision Miscellaneous Test 06/07/17 06/07/17 06/08/17 17:38 23:32 04:00 WBC RBC Hgb Hct POC Hct MCV 77 L MCH 23 L RDW 18.3 H [place] % (Auto) [place] # Seg Neutrophils % Seg Neuts % (Manual) 78.0 H Lymphocytes % (Manual) Monocytes % (Manual) Nucleated RBC % 3.0 H Seg Neutrophils # Seg Neutrophils # Man 7.8 H Lymphocytes # (Manual) Monocytes # (Manual) Eosinophils # (Manual) Basophils # (Manual) PT INR POC ABG pH 7.310 L ABG pH POC ABG pCO2 51.9 H POC ABG pO2 ABG pO2 ABG HCO3 ABG O2 Saturation ABG Base Excess ABG Hemoglobin POC Sodium POC Potassium Sodium Potassium Chloride Carbon Dioxide POC BUN BUN Creatinine Glucose POC Glucose 63 L Calcium Phosphorus ALT C-Reactive Protein Total Protein Albumin PTH Pre-Incision PTH Post-Excision Miscellaneous Test 06/08/17 06/08/17 06/08/17 04:00 10:51 11:25 WBC RBC Hgb Hct POC Hct MCV MCH RDW [place] % (Auto) [place] # Seg Neutrophils % Seg Neuts % (Manual) Lymphocytes % (Manual) Monocytes % (Manual) Nucleated RBC % Seg Neutrophils # Seg Neutrophils # Man Lymphocytes # (Manual) Monocytes # (Manual) Eosinophils # (Manual) Basophils # (Manual) PT INR POC ABG pH 7.336 L ABG pH POC ABG pCO2 55.1 H POC ABG pO2 ABG pO2 ABG HCO3 ABG O2 Saturation ABG Base Excess ABG Hemoglobin POC Sodium POC Potassium Sodium Potassium Chloride 96.9 L Carbon Dioxide POC BUN BUN 29 H Creatinine 4.6 H Glucose POC Glucose 108 H Calcium 8.3 L Phosphorus ALT C-Reactive Protein Total Protein Albumin PTH Pre-Incision PTH Post-Excision Miscellaneous Test 06/08/17 06/09/17 06/09/17 14:22 11:42 11:42 WBC RBC Hgb Hct POC Hct MCV 76 L MCH 24 L RDW 18.3 H [place] % (Auto) [place] # Seg Neutrophils % Seg Neuts % (Manual) 80.0 H Lymphocytes % (Manual) 10.0 L Monocytes % (Manual) Nucleated RBC % 2.0 H Seg Neutrophils # Seg Neutrophils # Man Lymphocytes # (Manual) 1.0 L Monocytes # (Manual) Eosinophils # (Manual) Basophils # (Manual) PT INR POC ABG pH ABG pH POC ABG pCO2 52.8 H POC ABG pO2 77 L ABG pO2 ABG HCO3 ABG O2 Saturation ABG Base Excess ABG Hemoglobin POC Sodium POC Potassium Sodium Potassium 5.4 H D Chloride 97.1 L Carbon Dioxide POC BUN BUN 58 H Creatinine 6.6 H Glucose POC Glucose Calcium 7.2 L Phosphorus ALT C-Reactive Protein Total Protein Albumin PTH Pre-Incision PTH Post-Excision Miscellaneous Test 06/09/17 06/10/17 06/10/17 12:04 03:29 03:29 WBC 13.7 H RBC Hgb Hct POC Hct MCV 77 L MCH 24 L RDW 17.9 H [place] % (Auto) [place] # Seg Neutrophils % Seg Neuts % (Manual) 82.0 H Lymphocytes % (Manual) 7.0 L Monocytes % (Manual) Nucleated RBC % 6.0 H Seg Neutrophils # Seg Neutrophils # Man 11.2 H Lymphocytes # (Manual) 1.0 L Monocytes # (Manual) Eosinophils # (Manual) Basophils # (Manual) PT INR POC ABG pH ABG pH POC ABG pCO2 POC ABG pO2 ABG pO2 ABG HCO3 ABG O2 Saturation ABG Base Excess ABG Hemoglobin POC Sodium POC Potassium Sodium Potassium Chloride 94.2 L Carbon Dioxide POC BUN BUN 32 H Creatinine 4.6 H Glucose 106 H POC Glucose 106 H Calcium 8.0 L Phosphorus ALT C-Reactive Protein Total Protein Albumin PTH Pre-Incision PTH Post-Excision Miscellaneous Test 06/10/17 06/11/17 06/11/17 05:27 06:00 06:00 WBC 11.8 H RBC Hgb Hct POC Hct MCV 77 L MCH 24 L RDW 18.3 H [place] % (Auto) [place] # Seg Neutrophils % Seg Neuts % (Manual) 88.0 H Lymphocytes % (Manual) 7.0 L Monocytes % (Manual) Nucleated RBC % 1.0 H Seg Neutrophils # Seg Neutrophils # Man 10.4 H Lymphocytes # (Manual) 0.8 L Monocytes # (Manual) Eosinophils # (Manual) Basophils # (Manual) PT INR POC ABG pH ABG pH POC ABG pCO2 POC ABG pO2 ABG pO2 ABG HCO3 ABG O2 Saturation ABG Base Excess ABG Hemoglobin POC Sodium POC Potassium Sodium Potassium Chloride Carbon Dioxide POC BUN BUN 53 H Creatinine 6.0 H Glucose POC Glucose 106 H Calcium 6.3 L D Phosphorus ALT C-Reactive Protein Total Protein Albumin PTH Pre-Incision PTH Post-Excision Miscellaneous Test 06/11/17 06/11/17 06/11/17 06:51 12:10 16:54 WBC RBC Hgb Hct POC Hct MCV MCH RDW [place] % (Auto) [place] # Seg Neutrophils % Seg Neuts % (Manual) Lymphocytes % (Manual) Monocytes % (Manual) Nucleated RBC % Seg Neutrophils # Seg Neutrophils # Man Lymphocytes # (Manual) Monocytes # (Manual) Eosinophils # (Manual) Basophils # (Manual) PT INR POC ABG pH 7.556 H ABG pH POC ABG pCO2 34.8 L POC ABG pO2 125 H ABG pO2 ABG HCO3 ABG O2 Saturation ABG Base Excess ABG Hemoglobin POC Sodium POC Potassium Sodium Potassium Chloride Carbon Dioxide POC BUN BUN Creatinine Glucose POC Glucose 115 H 106 H Calcium Phosphorus ALT C-Reactive Protein Total Protein Albumin PTH Pre-Incision PTH Post-Excision Miscellaneous Test 06/11/17 06/12/17 06/12/17 20:20 00:06 04:20 WBC RBC Hgb Hct POC Hct MCV MCH RDW [place] % (Auto) [place] # Seg Neutrophils % Seg Neuts % (Manual) Lymphocytes % (Manual) Monocytes % (Manual) Nucleated RBC % Seg Neutrophils # Seg Neutrophils # Man Lymphocytes # (Manual) Monocytes # (Manual) Eosinophils # (Manual) Basophils # (Manual) PT INR POC ABG pH ABG pH 7.512 H 7.514 H POC ABG pCO2 POC ABG pO2 ABG pO2 148.5 H 209.1 H ABG HCO3 ABG O2 Saturation 99.3 H ABG Base Excess ABG Hemoglobin POC Sodium POC Potassium Sodium Potassium Chloride Carbon Dioxide POC BUN BUN Creatinine Glucose POC Glucose 108 H Calcium Phosphorus ALT C-Reactive Protein Total Protein Albumin PTH Pre-Incision PTH Post-Excision Miscellaneous Test 06/12/17 06/12/17 06/12/17 05:24 05:30 05:30 WBC 14.3 H RBC Hgb Hct POC Hct MCV 75 L MCH 24 L RDW 18.5 H [place] % (Auto) [place] # Seg Neutrophils % Seg Neuts % (Manual) 73.0 H Lymphocytes % (Manual) 6.0 L Monocytes % (Manual) 9.0 H Nucleated RBC % 1.0 H Seg Neutrophils # Seg Neutrophils # Man 10.4 H Lymphocytes # (Manual) 0.9 L Monocytes # (Manual) 1.3 H Eosinophils # (Manual) Basophils # (Manual) PT INR POC ABG pH ABG pH POC ABG pCO2 POC ABG pO2 ABG pO2 ABG HCO3 ABG O2 Saturation ABG Base Excess ABG Hemoglobin POC Sodium POC Potassium Sodium 131 L D Potassium Chloride 90.6 L Carbon Dioxide POC BUN BUN 51 H Creatinine 6.5 H Glucose POC Glucose 109 H Calcium Phosphorus ALT C-Reactive Protein Total Protein Albumin PTH Pre-Incision PTH Post-Excision Miscellaneous Test 06/12/17 06/13/17 06/13/17 11:46 04:15 04:55 WBC 17.9 H RBC Hgb Hct POC Hct MCV 75 L MCH 24 L RDW 18.5 H [place] % (Auto) [place] # Seg Neutrophils % Seg Neuts % (Manual) 75.0 H Lymphocytes % (Manual) 6.0 L Monocytes % (Manual) 9.0 H Nucleated RBC % Seg Neutrophils # Seg Neutrophils # Man 13.4 H Lymphocytes # (Manual) 1.1 L Monocytes # (Manual) 1.6 H Eosinophils # (Manual) 0.5 H Basophils # (Manual) 0.2 H PT INR POC ABG pH ABG pH POC ABG pCO2 POC ABG pO2 ABG pO2 131.0 H ABG HCO3 ABG O2 Saturation ABG Base Excess ABG Hemoglobin 10.5 L POC Sodium POC Potassium Sodium Potassium Chloride Carbon Dioxide POC BUN BUN Creatinine Glucose POC Glucose 116 H Calcium Phosphorus ALT C-Reactive Protein Total Protein Albumin PTH Pre-Incision PTH Post-Excision Miscellaneous Test 06/13/17 06/13/17 06/14/17 04:55 17:23 04:30 WBC 17.8 H RBC Hgb 9.7 L Hct POC Hct MCV 76 L MCH 24 L RDW 18.3 H [place] % (Auto) [place] # Seg Neutrophils % Seg Neuts % (Manual) 74.0 H Lymphocytes % (Manual) 6.0 L Monocytes % (Manual) 9.0 H Nucleated RBC % Seg Neutrophils # Seg Neutrophils # Man 13.2 H Lymphocytes # (Manual) 1.1 L Monocytes # (Manual) 1.6 H Eosinophils # (Manual) Basophils # (Manual) PT INR POC ABG pH ABG pH POC ABG pCO2 POC ABG pO2 ABG pO2 ABG HCO3 ABG O2 Saturation ABG Base Excess ABG Hemoglobin POC Sodium POC Potassium Sodium 128 L Potassium Chloride 88.9 L Carbon Dioxide POC BUN BUN 73 H Creatinine 7.6 H Glucose 115 H POC Glucose 113 H Calcium 8.1 L Phosphorus ALT C-Reactive Protein Total Protein Albumin PTH Pre-Incision PTH Post-Excision Miscellaneous Test 06/14/17 06/14/17 06/14/17 04:30 05:30 05:49 WBC RBC Hgb Hct POC Hct MCV MCH RDW [place] % (Auto) [place] # Seg Neutrophils % Seg Neuts % (Manual) Lymphocytes % (Manual) Monocytes % (Manual) Nucleated RBC % Seg Neutrophils # Seg Neutrophils # Man Lymphocytes # (Manual) Monocytes # (Manual) Eosinophils # (Manual) Basophils # (Manual) PT INR POC ABG pH ABG pH POC ABG pCO2 POC ABG pO2 ABG pO2 109.3 H ABG HCO3 ABG O2 Saturation ABG Base Excess ABG Hemoglobin 10.7 L POC Sodium POC Potassium Sodium 124 L Potassium Chloride 84.3 L Carbon Dioxide POC BUN BUN 86 H Creatinine 9.0 H Glucose 106 H POC Glucose 111 H Calcium 8.1 L Phosphorus ALT C-Reactive Protein Total Protein Albumin PTH Pre-Incision PTH Post-Excision Miscellaneous Test 06/14/17 06/14/17 06/14/17 12:27 16:05 23:35 WBC RBC Hgb Hct POC Hct MCV MCH RDW [place] % (Auto) [place] # Seg Neutrophils % Seg Neuts % (Manual) Lymphocytes % (Manual) Monocytes % (Manual) Nucleated RBC % Seg Neutrophils # Seg Neutrophils # Man Lymphocytes # (Manual) Monocytes # (Manual) Eosinophils # (Manual) Basophils # (Manual) PT INR POC ABG pH ABG pH POC ABG pCO2 POC ABG pO2 ABG pO2 ABG HCO3 ABG O2 Saturation ABG Base Excess ABG Hemoglobin POC Sodium POC Potassium Sodium Potassium Chloride Carbon Dioxide POC BUN BUN Creatinine Glucose POC Glucose 139 H 133 H 147 H Calcium Phosphorus ALT C-Reactive Protein Total Protein Albumin PTH Pre-Incision PTH Post-Excision Miscellaneous Test 06/15/17 06/15/17 06/15/17 05:05 06:00 06:00 WBC 21.4 H RBC Hgb 9.2 L Hct POC Hct MCV 77 L MCH 23 L RDW 18.8 H [place] % (Auto) [place] # Seg Neutrophils % Seg Neuts % (Manual) 86.0 H Lymphocytes % (Manual) 2.0 L Monocytes % (Manual) Nucleated RBC % 1.0 H Seg Neutrophils # Seg Neutrophils # Man 18.4 H Lymphocytes # (Manual) 0.4 L Monocytes # (Manual) 1.5 H Eosinophils # (Manual) Basophils # (Manual) PT INR POC ABG pH ABG pH POC ABG pCO2 POC ABG pO2 ABG pO2 ABG HCO3 ABG O2 Saturation ABG Base Excess ABG Hemoglobin POC Sodium POC Potassium Sodium 132 L D Potassium Chloride 91.5 L Carbon Dioxide POC BUN BUN 59 H Creatinine 6.6 H Glucose 116 H POC Glucose 145 H Calcium Phosphorus ALT C-Reactive Protein Total Protein Albumin PTH Pre-Incision PTH Post-Excision Miscellaneous Test 06/15/17 06/15/17 06/15/17 12:04 17:55 23:40 WBC RBC Hgb Hct POC Hct MCV MCH RDW [place] % (Auto) [place] # Seg Neutrophils % Seg Neuts % (Manual) Lymphocytes % (Manual) Monocytes % (Manual) Nucleated RBC % Seg Neutrophils # Seg Neutrophils # Man Lymphocytes # (Manual) Monocytes # (Manual) Eosinophils # (Manual) Basophils # (Manual) PT INR POC ABG pH ABG pH POC ABG pCO2 POC ABG pO2 ABG pO2 ABG HCO3 ABG O2 Saturation ABG Base Excess ABG Hemoglobin POC Sodium POC Potassium Sodium Potassium Chloride Carbon Dioxide POC BUN BUN Creatinine Glucose POC Glucose 109 H 119 H 123 H Calcium Phosphorus ALT C-Reactive Protein Total Protein Albumin PTH Pre-Incision PTH Post-Excision Miscellaneous Test 06/15/17 06/16/17 06/16/17 Unknown 06:00 08:45 WBC 21.9 H RBC Hgb 8.9 L Hct 29.0 L POC Hct MCV 77 L MCH 24 L RDW 18.1 H [place] % (Auto) 11.2 H [place] # 1.6 H Seg Neutrophils % 82.8 H Seg Neuts % (Manual) 78.0 H Lymphocytes % (Manual) 3.0 L Monocytes % (Manual) 9.0 H Nucleated RBC % 1.0 H Seg Neutrophils # 12.2 H Seg Neutrophils # Man 17.1 H Lymphocytes # (Manual) 0.7 L Monocytes # (Manual) 2.0 H Eosinophils # (Manual) Basophils # (Manual) 0.2 H PT INR POC ABG pH ABG pH POC ABG pCO2 POC ABG pO2 ABG pO2 115.7 H ABG HCO3 27.6 H ABG O2 Saturation ABG Base Excess ABG Hemoglobin 9.2 L POC Sodium POC Potassium Sodium Potassium 2.7 L* D Chloride 111.6 H Carbon Dioxide 17 L D POC BUN BUN 52 H Creatinine 5.0 H Glucose POC Glucose Calcium 5.3 L* D Phosphorus ALT C-Reactive Protein Total Protein Albumin PTH Pre-Incision PTH Post-Excision Miscellaneous Test 06/16/17 06/16/17 06/16/17 09:25 11:00 12:07 WBC RBC Hgb Hct POC Hct MCV MCH RDW [place] % (Auto) [place] # Seg Neutrophils % Seg Neuts % (Manual) Lymphocytes % (Manual) Monocytes % (Manual) Nucleated RBC % Seg Neutrophils # Seg Neutrophils # Man Lymphocytes # (Manual) Monocytes # (Manual) Eosinophils # (Manual) Basophils # (Manual) PT INR POC ABG pH ABG pH POC ABG pCO2 POC ABG pO2 ABG pO2 102.0 H ABG HCO3 27.1 H ABG O2 Saturation ABG Base Excess ABG Hemoglobin 9.0 L POC Sodium POC Potassium Sodium Potassium Chloride 95.2 L Carbon Dioxide POC BUN BUN 60 H Creatinine 6.3 H Glucose 114 H POC Glucose 111 H Calcium 10.6 H D Phosphorus ALT C-Reactive Protein Total Protein Albumin PTH Pre-Incision PTH Post-Excision Miscellaneous Test 06/16/17 06/16/17 06/17/17 17:20 17:51 00:10 WBC RBC Hgb Hct POC Hct MCV MCH RDW [place] % (Auto) [place] # Seg Neutrophils % Seg Neuts % (Manual) Lymphocytes % (Manual) Monocytes % (Manual) Nucleated RBC % Seg Neutrophils # Seg Neutrophils # Man Lymphocytes # (Manual) Monocytes # (Manual) Eosinophils # (Manual) Basophils # (Manual) PT INR POC ABG pH ABG pH POC ABG pCO2 POC ABG pO2 ABG pO2 ABG HCO3 ABG O2 Saturation ABG Base Excess ABG Hemoglobin POC Sodium POC Potassium Sodium Potassium Chloride 97.4 L Carbon Dioxide POC BUN BUN 35 H Creatinine 4.4 H Glucose 116 H POC Glucose 128 H 114 H Calcium Phosphorus ALT C-Reactive Protein Total Protein Albumin PTH Pre-Incision PTH Post-Excision Miscellaneous Test 06/17/17 06/17/17 06/18/17 04:00 05:42 08:10 WBC 16.1 H RBC 3.55 L Hgb 8.4 L Hct 27.2 L POC Hct MCV 76 L MCH 24 L RDW 18.5 H [place] % (Auto) [place] # Seg Neutrophils % Seg Neuts % (Manual) Lymphocytes % (Manual) Monocytes % (Manual) Nucleated RBC % Seg Neutrophils # Seg Neutrophils # Man Lymphocytes # (Manual) Monocytes # (Manual) Eosinophils # (Manual) Basophils # (Manual) PT INR POC ABG pH ABG pH POC ABG pCO2 POC ABG pO2 ABG pO2 ABG HCO3 ABG O2 Saturation ABG Base Excess ABG Hemoglobin POC Sodium POC Potassium Sodium 136 L Potassium Chloride 94.5 L Carbon Dioxide POC BUN BUN 44 H Creatinine 5.3 H Glucose 107 H POC Glucose 110 H Calcium Phosphorus ALT C-Reactive Protein Total Protein Albumin PTH Pre-Incision PTH Post-Excision Miscellaneous Test 06/18/17 06/19/17 06/19/17 08:10 05:23 07:14 WBC 19.3 H RBC Hgb 9.2 L Hct 30.1 L POC Hct MCV 77 L MCH 23 L RDW 18.2 H [place] % (Auto) [place] # Seg Neutrophils % Seg Neuts % (Manual) Lymphocytes % (Manual) Monocytes % (Manual) Nucleated RBC % Seg Neutrophils # Seg Neutrophils # Man Lymphocytes # (Manual) Monocytes # (Manual) Eosinophils # (Manual) Basophils # (Manual) PT INR POC ABG pH ABG pH POC ABG pCO2 POC ABG pO2 ABG pO2 116.2 H ABG HCO3 28.5 H ABG O2 Saturation ABG Base Excess ABG Hemoglobin 9.1 L POC Sodium POC Potassium Sodium 134 L Potassium Chloride 91.6 L Carbon Dioxide POC BUN BUN 68 H Creatinine 7.2 H Glucose POC Glucose Calcium 10.3 H Phosphorus ALT 6 L C-Reactive Protein Total Protein 5.9 L Albumin 2.8 L PTH Pre-Incision PTH Post-Excision Miscellaneous Test 06/19/17 06/19/17 06/20/17 07:15 23:37 04:40 WBC RBC Hgb Hct POC Hct MCV MCH RDW [place] % (Auto) [place] # Seg Neutrophils % Seg Neuts % (Manual) Lymphocytes % (Manual) Monocytes % (Manual) Nucleated RBC % Seg Neutrophils # Seg Neutrophils # Man Lymphocytes # (Manual) Monocytes # (Manual) Eosinophils # (Manual) Basophils # (Manual) PT INR POC ABG pH ABG pH POC ABG pCO2 POC ABG pO2 ABG pO2 ABG HCO3 ABG O2 Saturation ABG Base Excess ABG Hemoglobin POC Sodium POC Potassium Sodium 135 L Potassium Chloride 94.3 L Carbon Dioxide POC BUN BUN 41 H Creatinine 5.4 H Glucose 117 H POC Glucose 152 H 140 H Calcium 10.3 H Phosphorus ALT C-Reactive Protein Total Protein Albumin PTH Pre-Incision PTH Post-Excision Miscellaneous Test 06/21/17 06/21/17 06/21/17 05:13 05:45 05:45 WBC 18.8 H RBC 3.54 L Hgb 8.2 L Hct 27.6 L POC Hct MCV 78 L MCH 23 L RDW 18.6 H [place] % (Auto) [place] # Seg Neutrophils % Seg Neuts % (Manual) Lymphocytes % (Manual) Monocytes % (Manual) Nucleated RBC % Seg Neutrophils # Seg Neutrophils # Man Lymphocytes # (Manual) Monocytes # (Manual) Eosinophils # (Manual) Basophils # (Manual) PT 15.2 H INR 1.14 H POC ABG pH ABG pH POC ABG pCO2 POC ABG pO2 ABG pO2 ABG HCO3 ABG O2 Saturation ABG Base Excess ABG Hemoglobin POC Sodium POC Potassium Sodium Potassium Chloride Carbon Dioxide POC BUN BUN Creatinine Glucose POC Glucose 140 H Calcium Phosphorus ALT C-Reactive Protein Total Protein Albumin PTH Pre-Incision PTH Post-Excision Miscellaneous Test 06/21/17 06/21/17 06/21/17 05:45 08:28 08:28 WBC RBC Hgb Hct POC Hct MCV MCH RDW [place] % (Auto) [place] # Seg Neutrophils % Seg Neuts % (Manual) Lymphocytes % (Manual) Monocytes % (Manual) Nucleated RBC % Seg Neutrophils # Seg Neutrophils # Man Lymphocytes # (Manual) Monocytes # (Manual) Eosinophils # (Manual) Basophils # (Manual) PT INR POC ABG pH ABG pH POC ABG pCO2 POC ABG pO2 ABG pO2 ABG HCO3 ABG O2 Saturation ABG Base Excess ABG Hemoglobin POC Sodium POC Potassium Sodium Potassium Chloride 95.5 L Carbon Dioxide POC BUN BUN 38 H Creatinine 4.8 H Glucose 126 H POC Glucose Calcium Phosphorus ALT C-Reactive Protein 13.60 H Total Protein Albumin PTH Pre-Incision PTH Post-Excision Miscellaneous Test Flexitest 1 H 06/21/17 06/22/17 06/22/17 23:21 04:53 05:00 WBC RBC Hgb Hct POC Hct MCV MCH RDW [place] % (Auto) [place] # Seg Neutrophils % Seg Neuts % (Manual) Lymphocytes % (Manual) Monocytes % (Manual) Nucleated RBC % Seg Neutrophils # Seg Neutrophils # Man Lymphocytes # (Manual) Monocytes # (Manual) Eosinophils # (Manual) Basophils # (Manual) PT INR POC ABG pH ABG pH POC ABG pCO2 POC ABG pO2 ABG pO2 110.7 H ABG HCO3 28.2 H ABG O2 Saturation ABG Base Excess 3.7 H ABG Hemoglobin 8.9 L POC Sodium POC Potassium Sodium Potassium Chloride Carbon Dioxide POC BUN BUN Creatinine Glucose POC Glucose 117 H 111 H Calcium Phosphorus ALT C-Reactive Protein Total Protein Albumin PTH Pre-Incision PTH Post-Excision Miscellaneous Test 06/22/17 06/22/17 06/22/17 11:49 11:59 11:59 WBC 15.4 H RBC Hgb 8.6 L Hct 28.4 L POC Hct MCV 77 L MCH 23 L RDW 18.4 H [place] % (Auto) [place] # Seg Neutrophils % Seg Neuts % (Manual) Lymphocytes % (Manual) Monocytes % (Manual) Nucleated RBC % Seg Neutrophils # Seg Neutrophils # Man Lymphocytes # (Manual) Monocytes # (Manual) Eosinophils # (Manual) Basophils # (Manual) PT INR POC ABG pH ABG pH POC ABG pCO2 POC ABG pO2 ABG pO2 ABG HCO3 ABG O2 Saturation ABG Base Excess ABG Hemoglobin POC Sodium POC Potassium Sodium Potassium Chloride Carbon Dioxide POC BUN BUN 25 H Creatinine 4.2 H Glucose 101 H POC Glucose 123 H Calcium Phosphorus ALT C-Reactive Protein Total Protein Albumin PTH Pre-Incision PTH Post-Excision Miscellaneous Test 06/23/17 06/23/17 06/23/17 02:49 02:49 04:45 WBC 12.1 H RBC 3.53 L Hgb 8.4 L Hct 27.2 L POC Hct MCV 77 L MCH 24 L RDW 18.5 H [place] % (Auto) [place] # Seg Neutrophils % Seg Neuts % (Manual) Lymphocytes % (Manual) Monocytes % (Manual) Nucleated RBC % Seg Neutrophils # Seg Neutrophils # Man Lymphocytes # (Manual) Monocytes # (Manual) Eosinophils # (Manual) Basophils # (Manual) PT INR POC ABG pH 7.530 H ABG pH POC ABG pCO2 34.7 L POC ABG pO2 136 H ABG pO2 ABG HCO3 ABG O2 Saturation ABG Base Excess ABG Hemoglobin POC Sodium POC Potassium Sodium Potassium Chloride Carbon Dioxide POC BUN BUN 36 H Creatinine 5.6 H Glucose POC Glucose Calcium Phosphorus ALT C-Reactive Protein Total Protein Albumin PTH Pre-Incision PTH Post-Excision Miscellaneous Test 06/23/17 06/23/17 06/24/17 19:16 21:09 05:04 WBC 14.0 H RBC Hgb 9.5 L Hct 29.9 L POC Hct MCV 77 L MCH 24 L RDW 18.4 H [place] % (Auto) [place] # Seg Neutrophils % Seg Neuts % (Manual) Lymphocytes % (Manual) Monocytes % (Manual) Nucleated RBC % Seg Neutrophils # Seg Neutrophils # Man Lymphocytes # (Manual) Monocytes # (Manual) Eosinophils # (Manual) Basophils # (Manual) PT INR POC ABG pH 7.511 H ABG pH POC ABG pCO2 POC ABG pO2 111 H ABG pO2 ABG HCO3 ABG O2 Saturation ABG Base Excess ABG Hemoglobin POC Sodium POC Potassium Sodium Potassium Chloride Carbon Dioxide POC BUN BUN Creatinine Glucose POC Glucose Calcium Phosphorus 1.70 L ALT C-Reactive Protein Total Protein Albumin PTH Pre-Incision PTH Post-Excision Miscellaneous Test 06/24/17 06/24/17 05:04 05:29 WBC RBC Hgb Hct POC Hct MCV MCH RDW [place] % (Auto) [place] # Seg Neutrophils % Seg Neuts % (Manual) Lymphocytes % (Manual) Monocytes % (Manual) Nucleated RBC % Seg Neutrophils # Seg Neutrophils # Man Lymphocytes # (Manual) Monocytes # (Manual) Eosinophils # (Manual) Basophils # (Manual) PT INR POC ABG pH ABG pH POC ABG pCO2 POC ABG pO2 ABG pO2 ABG HCO3 ABG O2 Saturation ABG Base Excess ABG Hemoglobin POC Sodium POC Potassium Sodium Potassium Chloride 94.8 L Carbon Dioxide POC BUN BUN 26 H Creatinine 4.4 H Glucose 106 H POC Glucose 124 H Calcium 10.8 H D Phosphorus ALT C-Reactive Protein Total Protein Albumin PTH Pre-Incision PTH Post-Excision Miscellaneous Test
[2017-06-24] MEDS: PROAMATINE PO SCH (07:44)
[2017-06-24] MEDS ORDERED: KPHOS 30 MMOL in NACL 0.9% 500 ML 500 ML IV ONE (09:28)
--- NOTE | 2017-06-24 09:28 | Progress Note ---
Subjective Principal diagnosis: ARM/MV/Post hyperparathy./ESRD Interval history: Patient was seen today for follow-up, on many renal related issues remains hypotensive ventilatory dependent but more alert and awake Does not follow commands Interdisciplinary notes were reviewed Vitals labs intake and output medications were reviewed from today Allergies: Reviewed Social history: Reviewed Family history: Reviewed Physical examination HEENT: Oral mucosa moist no pharyngeal erythema Neck: Supple no JVD Chest: Clear to auscultation no crackles rales or wheezes Heart: Regular rate and rhythm S1-S2 heard no S3-S4 Abdomen: Soft nontender no renal bruit no CVA tenderness no suprapubic fullness Extremity: Mild edema dry skin no peripheral cyanosis pulses palpable Neurological: Alert awake Musculoskeletal: No joint effusion noted Assessment and plan End-stage renal disease: Patient is currently on maintenance hemodialysis, chronic noncompliance, hemodialysis on's tolerated, Will consider holding dialysis tomorrow if she is hemodynamically unstable current schedule is Wednesday and Wednesday Hypotension patient is currently on midodrine 5 mg 3 times a day ultrafiltration goals have been reduced, likely this is resulting from Proteus infection follow-up blood cultures have been negative in the last 72 hours Proteus septicemia? Source unclear infectious disease currently following, tracheal aspirate positive for Proteus Status post parathyroidectomy Hypophosphatemia to replace and follow in the post-parathyroidectomy setting Respiratory failure currently status post tracheotomy patient has had a left MCA stroke Anemia and end-stage renal disease would recommend avoiding erythropoietin; she can be considered for packed red blood cell transfusion if hemoglobin is under 7 Chronically noncompliant patient, secondary hyperparathyroidism was long- standing patient was very resistant to treatment in the past Her prognosis is very poor, mortality risk is high, due to multiple comorbidities Will continue to follow and make recommendation from renal standpoint Objective - Vital Signs Vital signs: Vital Signs - 12hr 06/23/17 06/23/17 06/24/17 22:00 23:00 00:00 Temperature 98.6 F Pulse Rate 76 71 71 Respiratory 16 16 16 Rate Blood Pressure 95/58 88/44 82/44 O2 Sat by Pulse 100 100 100 Oximetry O2 Sat by Pulse 100 Oximetry [ Assessment] 06/24/17 06/24/17 06/24/17 00:22 01:00 02:00 Temperature Pulse Rate 70 69 67 Respiratory 16 16 Rate Blood Pressure 82/44 86/47 97/47 O2 Sat by Pulse 100 100 100 Oximetry O2 Sat by Pulse Oximetry [ Assessment] 06/24/17 06/24/17 06/24/17 03:00 04:00 05:00 Temperature 99.1 F Pulse Rate 72 72 73 Respiratory 15 16 16 Rate Blood Pressure 88/47 93/51 89/51 O2 Sat by Pulse 100 100 100 Oximetry O2 Sat by Pulse Oximetry [ Assessment] 06/24/17 06/24/17 06/24/17 06:00 06:07 07:00 Temperature Pulse Rate 74 75 74 Respiratory 16 26 H 26 H Rate Blood Pressure 92/47 92/47 95/47 O2 Sat by Pulse 100 99 100 Oximetry O2 Sat by Pulse Oximetry [ Assessment] 06/24/17 06/24/17 06/24/17 08:00 08:23 09:00 Temperature 98.6 F Pulse Rate 73 74 71 Respiratory 22 26 H 20 Rate Blood Pressure 84/41 84/41 88/47 O2 Sat by Pulse 100 99 100 Oximetry O2 Sat by Pulse Oximetry [ Assessment] 06/24/17 09:16 Temperature Pulse Rate Respiratory Rate Blood Pressure O2 Sat by Pulse Oximetry O2 Sat by Pulse 99 Oximetry [ Assessment] - Lab 06/24/17 05:04 06/24/17 05:04 Most recent lab results ABG pH 7.438 pH Units (7.350-7.450) 06/22/17 05:00 ABG pCO2 42.6 mm Hg 06/22/17 05:00 ABG pO2 110.7 mm Hg (80.0-90.0) H 06/22/17 05:00 ABG HCO3 28.2 mmol/L (20.0-26.0) H 06/22/17 05:00 ABG O2 Saturation 98.1 % (95.0-99.0) 06/22/17 05:00 Calcium 10.8 mg/dL (8.4-10.2) H D 06/24/17 05:04 Phosphorus 1.70 mg/dL (2.5-4.5) L 06/23/17 21:09 Magnesium 1.90 mg/dL (1.7-2.3) 06/16/17 11:00
[2017-06-24] MEDS ORDERED: SODIUM PHOSPHATE 15 MMOL in NACL 0.9% 250ML 250 ML IV ONE (09:30)
--- NOTE | 2017-06-24 09:35 | Progress Note ---
Assessment and Plan Assessment and plan: Acute hypoxic respiratory failure on mechanical ventilation more than 96 hours re-intubated, continue vent and s/p trach on 06/21/17 cont periodic breathing treatment, pulmonary following Acute left MCA stroke with right-sided weakness Neurology consult appreciated MR brain showed large left MCA acute infarct Continueon aspirin and statin Cardiology consulted to rule out cardiac cause of stroke Vascular surgery consulted no intervention needed received mannitol for IC edema Sepsis Mayy have Aspiration pneumonia which is obscured by pulmonary edema Blood cultures reviewed growing Proteus mirabilis Now on Ceftriaxone Metabolic Enchephalopathy due to stroke, s/p mannitol Status post subtotal parathyroidectomy Continue postop care per surgery continue to replete calcium as needed End-stage renal disease on hemodialysis Creatinine 4.4 today Continue hemodialysis as scheduled per nephrology Hyperkalemia Now resolved. Potassium 4.0 today Hypertension Continue prn medication History of breast cancer status post mastectomy Stable Morbid obesity with BMI > 40 Nutrition input appreciated Moderate malnutrition continue tube feeds Hyponatremia Resolved.. Sodium 137 today Hypotension, persisting Patient on Midodrine. Discussed with Dr. Beckwith. Ordered CT Abd/Pelvis to r/o abscess as source of sepsis causing hypotension.. Discussed with Aunt at bedside yesterday. History Interval history: Patient still intubated, Hypotension Hospitalist Physical - Physical exam Narrative exam: Gen Appearance: Not in acute distress, morbidly obese HEENT: normocephalic, atraumatic Neck: supple, no JVD Lungs: clear to auscultation bilaterally, no crackles or wheezes Heart: S1 and S2 regular, no murmurs, rubs or gallop Abdomen: Soft , non tender, non distended, PEG tube, normal bowel sounds Extremity: No edema, clubbing or cyanosis Neuro : Tracheostomy, sedated - Constitutional Vitals: Temp Pulse Resp BP Pulse Ox 98.6 F 71 20 88/47 99 06/24/17 08:00 06/24/17 09:00 06/24/17 09:00 06/24/17 09:00 06/24/17 09:16 General appearance: Present: no acute distress, other (withdrawn, nonverbal) Results - Labs CBC & Chem 7: 06/24/17 05:04 06/24/17 05:04 Labs: Laboratory Last Values WBC 14.0 K/mm3 (4.5-11.0) H 06/24/17 05:04 RBC 3.91 M/mm3 (3.65-5.03) 06/24/17 05:04 Hgb 9.5 gm/dl (10.1-14.3) L 06/24/17 05:04 POC Hgb 14.3 (12-17) 06/04/17 16:22 Hct 29.9 % (30.3-42.9) L 06/24/17 05:04 POC Hct 42 (38-51) 06/04/17 16:22 MCV 77 fl (79-97) L 06/24/17 05:04 MCH 24 pg (28-32) L 06/24/17 05:04 MCHC 32 % (30-34) 06/24/17 05:04 RDW 18.4 % (13.2-15.2) H 06/24/17 05:04 Plt Count 265 K/mm3 (140-440) 06/24/17 05:04 [place] % (Auto) 11.2 % (0.0-7.3) H 06/16/17 08:45 Eos % (Auto) 1.4 % (0.0-4.3) 06/16/17 08:45 [place] # 1.6 K/mm3 (0.0-0.8) H 06/16/17 08:45 Eos # 0.2 K/mm3 (0.0-0.4) 06/16/17 08:45 Baso # 0.1 K/mm3 (0.0-0.1) 06/16/17 08:45 Add Manual Diff Complete 06/16/17 08:45 Total Counted 100 06/16/17 08:45 Seg Neutrophils % 82.8 % (40.0-70.0) H 06/16/17 08:45 Seg Neuts % (Manual) 78.0 % (40.0-70.0) H 06/16/17 08:45 Band Neutrophils % 1.0 % 06/16/17 08:45 Lymphocytes % (Manual) 3.0 % (13.4-35.0) L 06/16/17 08:45 Reactive Lymphs % (Man) 0 % 06/16/17 08:45 Monocytes % (Manual) 9.0 % (0.0-7.3) H 06/16/17 08:45 Eosinophils % (Manual) 2.0 % (0.0-4.3) 06/16/17 08:45 Basophils % (Manual) 1.0 % (0.0-1.8) 06/16/17 08:45 Metamyelocytes % 6.0 % 06/16/17 08:45 Myelocytes % 0 % 06/16/17 08:45 Promyelocytes % 0 % 06/16/17 08:45 Blast Cells % 0 % 06/16/17 08:45 Nucleated RBC % 1.0 % (0.0-0.9) H 06/16/17 08:45 Seg Neutrophils # 12.2 K/mm3 (1.8-7.7) H 06/16/17 08:45 Seg Neutrophils # Man 17.1 K/mm3 (1.8-7.7) H 06/16/17 08:45 Band Neutrophils # 0.2 K/mm3 06/16/17 08:45 Lymphocytes # (Manual) 0.7 K/mm3 (1.2-5.4) L 06/16/17 08:45 Abs React Lymphs (Man) 0.0 K/mm3 06/16/17 08:45 Monocytes # (Manual) 2.0 K/mm3 (0.0-0.8) H 06/16/17 08:45 Eosinophils # (Manual) 0.4 K/mm3 (0.0-0.4) 06/16/17 08:45 Basophils # (Manual) 0.2 K/mm3 (0.0-0.1) H 06/16/17 08:45 Metamyelocytes # 1.3 K/mm3 06/16/17 08:45 Myelocytes # 0.0 K/mm3 06/16/17 08:45 Promyelocytes # 0.0 K/mm3 06/16/17 08:45 Blast Cells # 0.0 K/mm3 06/16/17 08:45 WBC Morphology Not Reportable 06/16/17 08:45 Hypersegmented Neuts Not Reportable 06/16/17 08:45 Hyposegmented Neuts Not Reportable 06/16/17 08:45 Hypogranular Neuts Not Reportable 06/16/17 08:45 Smudge Cells Not Reportable 06/16/17 08:45 Toxic Granulation Not Reportable 06/16/17 08:45 Toxic Vacuolation Not Reportable 06/16/17 08:45 Dohle Bodies Not Reportable 06/16/17 08:45 Pelger-Huet Anomaly Not Reportable 06/16/17 08:45 Sunita Rods Not Reportable 06/16/17 08:45 Platelet Estimate Cons 06/16/17 08:45 Clumped Platelets Not Reportable 06/16/17 08:45 Plt Clumps, EDTA Not Reportable 06/16/17 08:45 Large Platelets Not Reportable 06/16/17 08:45 Giant Platelets Not Reportable 06/16/17 08:45 Platelet Satelliting Not Reportable 06/16/17 08:45 Plt Morphology Comment Not Reportable 06/16/17 08:45 RBC Morphology Not Reportable 06/16/17 08:45 Dimorphic RBCs Not Reportable 06/16/17 08:45 Polychromasia Not Reportable 06/16/17 08:45 Hypochromasia 2+ 06/16/17 08:45 Poikilocytosis Not Reportable 06/16/17 08:45 Anisocytosis Not Reportable 06/16/17 08:45 Microcytosis 1+ 06/16/17 08:45 Macrocytosis Not Reportable 06/16/17 08:45 Spherocytes Not Reportable 06/16/17 08:45 Pappenheimer Bodies Not Reportable 06/16/17 08:45 Sickle Cells Not Reportable 06/16/17 08:45 Target Cells Not Reportable 06/16/17 08:45 Tear Drop Cells Few 06/16/17 08:45 Ovalocytes Not Reportable 06/16/17 08:45 Helmet Cells Not Reportable 06/16/17 08:45 [place] Bodies Not Reportable 06/16/17 08:45 [place] Rings Not Reportable 06/16/17 08:45 [place] Cells Not Reportable 06/16/17 08:45 Bite Cells Not Reportable 06/16/17 08:45 Crenated Cell Not Reportable 06/16/17 08:45 Elliptocytes Not Reportable 06/16/17 08:45 Acanthocytes (Spur) Not Reportable 06/16/17 08:45 Rouleaux Not Reportable 06/16/17 08:45 Hemoglobin C Crystals Not Reportable 06/16/17 08:45 Schistocytes Few 06/16/17 08:45 Malaria parasites Not Reportable 06/16/17 08:45 [place] Bodies Not Reportable 06/16/17 08:45 Hem Pathologist Commnt No 06/16/17 08:45 PT 15.2 Sec. (12.2-14.9) H 06/21/17 05:45 INR 1.14 (0.87-1.13) H 06/21/17 05:45 APTT 29.9 Sec. (24.2-36.6) 06/09/17 16:55 POC ABG pH 7.511 (7.35-7.45) H 06/23/17 19:16 ABG pH 7.438 pH Units (7.350-7.450) 06/22/17 05:00 POC ABG pCO2 38.8 (35-45) 06/23/17 19:16 ABG pCO2 42.6 mm Hg 06/22/17 05:00 POC ABG pO2 111 (80-105) H 06/23/17 19:16 ABG pO2 110.7 mm Hg (80.0-90.0) H 06/22/17 05:00 POC ABG HCO3 31.0 06/23/17 19:16 ABG HCO3 28.2 mmol/L (20.0-26.0) H 06/22/17 05:00 POC ABG Total CO2 32 06/23/17 19:16 POC ABG O2 Sat 99 06/23/17 19:16 ABG O2 Saturation 98.1 % (95.0-99.0) 06/22/17 05:00 ABG O2 Content 12.3 (0.0-44) 06/22/17 05:00 POC ABG Base Excess 8 06/23/17 19:16 ABG Base Excess 3.7 mmol/L (-2.0-3.0) H 06/22/17 05:00 ABG Hemoglobin 8.9 gm/dl (12.0-16.0) L 06/22/17 05:00 ABG Carboxyhemoglobin 1.7 % (0.0-5.0) 06/22/17 05:00 ABG Methemoglobin 0.3 % (0.0-1.5) 06/22/17 05:00 Oxyhemoglobin 96.1 % (95.0-99.0) 06/22/17 05:00 POC Sodium 137 mmol/L (138-146) L 06/04/17 16:22 POC Potassium 5.3 (3.5-4.9) H 06/04/17 16:22 POC Chloride 102 (98-109) 06/04/17 16:22 FiO2 30 % 06/23/17 19:16 Sodium 137 mmol/L (137-145) 06/24/17 05:04 Potassium 3.9 mmol/L (3.6-5.0) 06/24/17 05:04 Chloride 94.8 mmol/L (98-107) L 06/24/17 05:04 Carbon Dioxide 26 mmol/L (22-30) 06/24/17 05:04 Anion Gap 20 mmol/L 06/24/17 05:04 POC BUN 45 mg/dl (8-26) H 06/04/17 16:22 BUN 26 mg/dL (7-17) H 06/24/17 05:04 Creatinine 4.4 mg/dL (0.7-1.2) H 06/24/17 05:04 Estimated GFR 12 ml/min 06/24/17 05:04 BUN/Creatinine Ratio 6 % 06/24/17 05:04 Glucose 106 mg/dL (65-100) H 06/24/17 05:04 POC Glucose 124 (70-105) H 06/24/17 05:29 Osmolality 312 Mosm/kg 06/14/17 09:25 Calcium 10.8 mg/dL (8.4-10.2) H D 06/24/17 05:04 Phosphorus 1.70 mg/dL (2.5-4.5) L 06/23/17 21:09 Magnesium 1.90 mg/dL (1.7-2.3) 06/16/17 11:00 Total Bilirubin 0.40 mg/dL (0.1-1.2) 06/18/17 08:10 AST 14 units/L (5-40) 06/18/17 08:10 ALT 6 units/L (7-56) L 06/18/17 08:10 Alkaline Phosphatase 92 units/L (35-129) 06/18/17 08:10 C-Reactive Protein 13.60 mg/dL (0.00-1.30) H 06/21/17 08:28 Total Protein 5.9 g/dL (6.3-8.2) L 06/18/17 08:10 Albumin 2.8 g/dL (3.9-5) L 06/18/17 08:10 Albumin/Globulin Ratio 0.9 % 06/18/17 08:10 Triglycerides 132 mg/dL (2-149) 06/09/17 11:49 Cholesterol 171 mg/dL (50-199) 06/09/17 11:49 LDL Cholesterol Direct 95 mg/dL (50-130) 06/09/17 11:49 HDL Cholesterol 50 mg/dL (40-59) 06/09/17 11:49 Cholesterol/HDL Ratio 3.42 % 06/09/17 11:49 PTH Intact 40.84 pg/mL (15-65) 06/23/17 21:09 PTH Pre-Incision 641.9 (11.1-79.5) H 06/04/17 13:55 PTH Post-Excision 154.7 (11.1-79.5) H 06/04/17 13:55 PTH Intact Intraop 5 m Not Reportable 06/04/17 13:55 Random Vancomycin 17.4 ug/mL (0-40.0) 06/21/17 05:45 Miscellaneous Test Flexitest 1 H 06/21/17 08:28 Blood Type O POSITIVE 06/21/17 05:30 Antibody Screen TNR 06/21/17 05:30 JOHN Antibody Screen Negative 06/21/17 05:30
[2017-06-24] MEDS ORDERED: PROAMATINE PO SCH (10:00)
[2017-06-24 10:22] LABS: Calcium 10.8 mg/dL (8.4-10.2); Phosphorous 1.9 mg/dL (2.5-4.5)
[2017-06-24] MEDS: ROCEPHIN/NS 2 GM/100 ML 2 GM/100 ML BAG IV SCH (10:24)
[2017-06-24] MEDS: HEPARIN SUB-Q SCH ×2 (10:25→21:59)
[2017-06-24] MEDS: PEPCID PO SCH (10:25)
[2017-06-24] MEDS: BABY ASPIRIN PO SCH (10:25)
--- NOTE | 2017-06-24 11:49 | Progress Note ---
Assessment and Plan Assessment: 1) Sepsis: noted worsening hypotension. Etiology - Proteus septicemia. CRP=13 / Iligkp=806 (?very high level) 2) Proteus septicemia: ? lungs 3) Acute left MCA stroke with right-sided weakness. MRI brain showed large left MCA acute infarct. 4) Secondary hyperparathyroidismelective s/p total parathyroidectomy on 06/04/17 5) ESRD on HD 6) Respiratory failure ? pulmonary edema versus VAP 7) Presumed VAP: tracheal asp + Proteus s/p trach Plan: -contiue ceftriaxone 2 g IV qday - day 6 (from zosyn starting date) -Obtain CT abdomen r/o abdominal source -repeat procalcitonin -upon discharge will do levaquin 750 mg PO QOD total 14 days from 06/[address] Singh for your consultation, will follow up with you. Paz Bonilla MD Infectious Diseases Specialist [facility] ([facility]) M [phone] O [phone] Subjective Date of service: 06/24/17 Principal diagnosis: ARM/MV/Post hyperparathy./ESRD Interval history: Remains on the vent, no fever. Noted hypotension Current antibiotics: Ceftriaxone 06/22 Previous Antimicrobials: Zosyn 06/19 Vancomycin 06/19 Microbiology: Blood cultures: 06/19 Proteus 06/21 neg Urine cultures: none Respiratory cultures: 06/04 ngtd 06/20 Proteus Objective - Exam Narrative Exam: General appearance: alert on the vent Eyes: anicteric sclerae, moist conjunctivae; no lid-lag; PERRLA HENT: Atraumatic; oropharynx +NGT Neck: surgical scar well healed +trach Lungs: dillon rhonchi / chest + mastectomy scar well healed CV: RRR Abdomen: Soft, non-tender Extremities: +peripheral edema Skin: Normal temperature, turgor and texture; no rash, ulcers or subcutaneous nodules Psych: sedated. Neuro: sedated Lines: - Constitutional Vitals: Vital Signs Temp Pulse Resp BP Pulse Ox 98.6 F 71 29 H 89/47 100 06/24/17 08:00 06/24/17 11:00 06/24/17 11:00 06/24/17 11:00 06/24/17 11:00 Temperature -Last 24 Hours Temperature 98.6 F Temperature 99.1 F Temperature 98.6 F Temperature 98.8 F Temperature 98.3 F Temperature 98.3 F Temperature 98.0 F Temperature 98 F - Labs CBC & Chem 7: 06/24/17 05:04 06/24/17 05:04 Labs: Abnormal lab results 06/21/17 06/23/17 06/23/17 Range/Units 08:28 19:16 21:09 WBC (4.5-11.0) K/mm3 Hgb (10.1-14.3) gm/dl Hct (30.3-42.9) % MCV (79-97) fl MCH (28-32) pg RDW (13.2-15.2) % POC ABG pH 7.511 H (7.35-7.45) POC ABG pO2 111 H (80-105) Chloride (98-107) mmol/L BUN (7-17) mg/dL Creatinine (0.7-1.2) mg/dL Glucose (65-100) mg/dL POC Glucose (70-105) Calcium (8.4-10.2) mg/dL Phosphorus 1.70 L (2.5-4.5) mg/dL Miscellaneous Test Flexitest 1 H 06/24/17 06/24/17 06/24/17 Range/Units 05:02 05:04 05:04 WBC 14.0 H (4.5-11.0) K/mm3 Hgb 9.5 L (10.1-14.3) gm/dl Hct 29.9 L (30.3-42.9) % MCV 77 L (79-97) fl MCH 24 L (28-32) pg RDW 18.4 H (13.2-15.2) % POC ABG pH (7.35-7.45) POC ABG pO2 (80-105) Chloride 94.8 L (98-107) mmol/L BUN 26 H (7-17) mg/dL Creatinine 4.4 H (0.7-1.2) mg/dL Glucose 106 H (65-100) mg/dL POC Glucose (70-105) Calcium 10.8 H D 10.8 H (8.4-10.2) mg/dL Phosphorus 1.90 L (2.5-4.5) mg/dL Miscellaneous Test 06/24/17 Range/Units 05:29 WBC (4.5-11.0) K/mm3 Hgb (10.1-14.3) gm/dl Hct (30.3-42.9) % MCV (79-97) fl MCH (28-32) pg RDW (13.2-15.2) % POC ABG pH (7.35-7.45) POC ABG pO2 (80-105) Chloride (98-107) mmol/L BUN (7-17) mg/dL Creatinine (0.7-1.2) mg/dL Glucose (65-100) mg/dL POC Glucose 124 H (70-105) Calcium (8.4-10.2) mg/dL Phosphorus (2.5-4.5) mg/dL Miscellaneous Test
[2017-06-24 13:22] LABS: ISTAT Base Excess 6; ISTAT HCO3 29.9; ISTAT PCO2 43.9 (35-45); ISTAT PH 7.441 (7.35-7.45); ISTAT PO2 101 (80-105); ISTAT SO2 98; ISTAT TCO2 31
--- NOTE | 2017-06-24 21:23 | Cat Scan Report ---
FINAL REPORT PROCEDURE: CT abdomen and pelvis with contrast. TECHNIQUE: Computerized axial tomography of the abdomen and pelvis was performed after the IV injection of iodinated nonionic contrast. HISTORY: persistent hypotension/sepsis very high infl maker COMPARISON: No prior studies are available for comparison. FINDINGS: There is severe streak artifact on the images because the patient was scanned with her arms by her sides. The lung bases are grossly clear. There are no pleural effusions. The heart size is enlarged. The liver and pancreas appear normal. The gallbladder is present. There is a round area of low attenuation in the medial portion of the spleen. This measures 1.7 centimeters in diameter. It could represent a splenic cyst. Other etiologies are possible however. There is an ovoid mass in the left adrenal gland that has slightly diminished attenuation. This measures 2.5 centimeters x 2.3 centimeters in cross-section. This likely represents an adrenal adenoma. The kidneys appear slightly small. There are 2 tiny cortical masses in the left kidney. One has low attenuation and is likely a simple cyst. The other has higher attenuation. This could represent a hyperdense cyst. A small solid mass is also possible. This measures 8.9 millimeters in diameter. An ultrasound study could be attempted for further characterization. The abdominal aorta has a normal caliber. There is no retroperitoneal adenopathy. There is a gastrostomy tube present. There are numerous diverticula scattered in the colon. These are present in the ascending colon, descending colon and sigmoid colon. The bladder is empty. The uterus has been removed. The regional skeleton appears intact. There is irregularity of the disc space at L4-5. There is some erosion of the adjacent endplates. There is grade 1 spondylolisthesis. The appearance could represent acute or previous discitis. Clinical correlation and possible further evaluation with an MRI scan may be helpful. There are numerous calcifications in the left gluteal fat. These may represent injection granulomas. IMPRESSION: Limited study due to streak artifact and the patient's obesity. Small indeterminate mass in the spleen. Probable left adrenal adenoma. Two small left renal masses which may represent cysts. Colonic diverticulosis. Gastrostomy tube in satisfactory position. Abnormal appearance of the L4-5 disc space as discussed above. Acute or chronic discitis are possible. This could also represent severe degenerative disease.
[2017-06-25 04:16] LABS: Hematocrit 29.5 % (30.3-42.9); Hemoglobin 9.2 gm/dl (10.1-14.3); Mean Corpuscular HGB Conc 31 % (30-34); Mean Corpuscular Volume 77 fl (79-97); Platelet Count 239 K/mm3 (140-440); Red Blood Count 3.86 M/mm3 (3.65-5.03); White Blood Count 13.4 K/mm3 (4.5-11.0)
[2017-06-25 04:18] LABS: Calcium 9.6 mg/dL (8.4-10.2); Chloride 90.7 mmol/L (98-107); Potassium 3.4 mmol/L (3.6-5.0)
[2017-06-25 04:21] LABS: Mean Corpuscular Hemoglobin 24 pg (28-32)
--- NOTE | 2017-06-25 08:54 | Progress Note ---
Assessment and Plan Acute respiratory failure, hypoxia/hypercapnea. Weaned successfully from ventilatory support. No distress on current oxygen Hyperparathyroidism s/p parathyroidectomy Hypophospathemia. Being replaced Hypercalemia. Pending follow-up labs Sepsis. Completing antibiotics. No fever Morbid obesity ESRD Laryngeal edema/stridor. Resolved/tracheotomy Acute CVA. Left MCA stroke. Neurologically, she appears to be slowly improving Rec: Continue antibiotics Check labs Continue oxygen support as needed Monitor secretions and suction as necessary Status reviewed on ablated with family at the bedside. Critical care time was 31 minutes minutes of [id number] evaluation coordination of care Subjective Date of service: 06/25/17 Principal diagnosis: ARM/MV/Post hyperparathy./ESRD Interval history: Off ventilator, no shortness of breath? Objective Vital Signs - 12hr 06/24/17 06/24/17 06/24/17 21:00 22:00 23:00 Temperature Pulse Rate 73 74 74 Respiratory 25 H 23 18 Rate Blood Pressure 114/60 115/64 116/58 O2 Sat by Pulse 99 100 98 Oximetry O2 Sat by Pulse Oximetry [ Assessment] 06/24/17 06/24/17 06/25/17 23:02 23:32 00:00 Temperature 98.6 F Pulse Rate 74 71 Respiratory 19 21 Rate Blood Pressure 116/58 113/59 O2 Sat by Pulse 99 98 Oximetry O2 Sat by Pulse Oximetry [ Assessment] 06/25/17 06/25/17 06/25/17 01:00 01:07 02:00 Temperature Pulse Rate 72 72 Respiratory 20 26 H Rate Blood Pressure 111/63 118/61 O2 Sat by Pulse 99 100 Oximetry O2 Sat by Pulse 100 Oximetry [ Assessment] 06/25/17 06/25/17 06/25/17 03:00 03:37 04:00 Temperature 97.9 F Pulse Rate 69 74 Respiratory 21 22 Rate Blood Pressure 102/54 100/56 O2 Sat by Pulse 100 100 Oximetry O2 Sat by Pulse Oximetry [ Assessment] 06/25/17 06/25/17 06/25/17 05:00 06:00 07:00 Temperature Pulse Rate 72 68 67 Respiratory 16 21 19 Rate Blood Pressure 115/52 103/54 105/60 O2 Sat by Pulse 100 100 100 Oximetry O2 Sat by Pulse Oximetry [ Assessment] Constitutional: no acute distress, alert Eyes: non-icteric Neck: supple, no JVD, other (tracheotomy and position, no bleeding) Effort: normal Ascultation: Bilateral: clear, diminished breath sounds Percussion: Bilateral: not dull Cardiovascular: regular rate and rhythm Gastrointestinal: normoactive bowel sounds, soft, non-tender, non-distended, other (obese, ) Integumentary: normal Extremities: no cyanosis, no edema, pink and warm, edema Neurologic: other (open eyes spontaneously but not fully oriented, maybe a facet. Right hemiparesis,GCS 5-6, ) CBC and BMP: 06/25/17 03:37 06/25/17 03:37 ABG, PT/INR, D-dimer: ABG POC ABG pH 7.441 (7.35-7.45) 06/24/17 13:15 ABG pH 7.438 pH Units (7.350-7.450) 06/22/17 05:00 POC ABG pCO2 43.9 (35-45) 06/24/17 13:15 ABG pCO2 42.6 mm Hg 06/22/17 05:00 POC ABG pO2 101 (80-105) 06/24/17 13:15 ABG pO2 110.7 mm Hg (80.0-90.0) H 06/22/17 05:00 POC ABG HCO3 29.9 06/24/17 13:15 POC ABG Total CO2 31 06/24/17 13:15 POC ABG O2 Sat 98 06/24/17 13:15 ABG O2 Saturation 98.1 % (95.0-99.0) 06/22/17 05:00 PT/INR, D-dimer PT 15.2 Sec. (12.2-14.9) H 06/21/17 05:45 INR 1.14 (0.87-1.13) H 06/21/17 05:45 Abnormal lab findings: Abnormal Labs 06/04/17 06/04/17 06/04/17 00:01 12:50 13:55 WBC 11.4 H RBC Hgb Hct POC Hct MCV 76 L MCH 23 L RDW 18.5 H [place] % (Auto) [place] # Seg Neutrophils % Seg Neuts % (Manual) 89.0 H Lymphocytes % (Manual) 6.0 L Monocytes % (Manual) Nucleated RBC % Seg Neutrophils # Seg Neutrophils # Man 10.1 H Lymphocytes # (Manual) 0.7 L Monocytes # (Manual) Eosinophils # (Manual) Basophils # (Manual) PT INR POC ABG pH ABG pH POC ABG pCO2 POC ABG pO2 ABG pO2 ABG HCO3 ABG O2 Saturation ABG Base Excess ABG Hemoglobin POC Sodium POC Potassium Sodium Potassium 5.1 H 5.2 H Chloride Carbon Dioxide POC BUN BUN 48 H Creatinine 6.2 H Glucose POC Glucose Calcium Phosphorus ALT C-Reactive Protein Total Protein Albumin PTH Pre-Incision PTH Post-Excision Miscellaneous Test 06/04/17 06/04/17 06/04/17 13:55 16:10 16:16 WBC RBC Hgb Hct POC Hct 37 L MCV MCH RDW [place] % (Auto) [place] # Seg Neutrophils % Seg Neuts % (Manual) Lymphocytes % (Manual) Monocytes % (Manual) Nucleated RBC % Seg Neutrophils # Seg Neutrophils # Man Lymphocytes # (Manual) Monocytes # (Manual) Eosinophils # (Manual) Basophils # (Manual) PT INR POC ABG pH 7.306 L ABG pH POC ABG pCO2 58.7 H POC ABG pO2 338 H ABG pO2 ABG HCO3 ABG O2 Saturation ABG Base Excess ABG Hemoglobin POC Sodium 135 L POC Potassium 5.2 H Sodium Potassium Chloride Carbon Dioxide POC BUN 44 H BUN Creatinine Glucose POC Glucose 183 H Calcium Phosphorus ALT C-Reactive Protein Total Protein Albumin PTH Pre-Incision 641.9 H PTH Post-Excision 154.7 H Miscellaneous Test 06/04/17 06/04/17 06/04/17 16:22 20:44 21:29 WBC RBC Hgb Hct POC Hct MCV MCH RDW [place] % (Auto) [place] # Seg Neutrophils % Seg Neuts % (Manual) Lymphocytes % (Manual) Monocytes % (Manual) Nucleated RBC % Seg Neutrophils # Seg Neutrophils # Man Lymphocytes # (Manual) Monocytes # (Manual) Eosinophils # (Manual) Basophils # (Manual) PT INR POC ABG pH 7.484 H ABG pH POC ABG pCO2 POC ABG pO2 ABG pO2 ABG HCO3 ABG O2 Saturation ABG Base Excess ABG Hemoglobin POC Sodium 137 L POC Potassium 5.3 H Sodium Potassium 5.2 H Chloride Carbon Dioxide POC BUN 45 H BUN 51 H Creatinine 6.5 H Glucose 119 H POC Glucose 176 H Calcium Phosphorus ALT C-Reactive Protein Total Protein Albumin PTH Pre-Incision PTH Post-Excision Miscellaneous Test 06/05/17 06/05/17 06/05/17 03:31 11:44 11:44 WBC 13.4 H RBC Hgb Hct POC Hct MCV 75 L MCH 23 L RDW 18.2 H [place] % (Auto) [place] # Seg Neutrophils % Seg Neuts % (Manual) Lymphocytes % (Manual) Monocytes % (Manual) Nucleated RBC % Seg Neutrophils # Seg Neutrophils # Man Lymphocytes # (Manual) Monocytes # (Manual) Eosinophils # (Manual) Basophils # (Manual) PT INR POC ABG pH ABG pH POC ABG pCO2 POC ABG pO2 75 L ABG pO2 ABG HCO3 ABG O2 Saturation ABG Base Excess ABG Hemoglobin POC Sodium POC Potassium Sodium Potassium 5.8 H Chloride Carbon Dioxide POC BUN BUN 56 H Creatinine 7.0 H Glucose 111 H POC Glucose Calcium 8.2 L Phosphorus ALT C-Reactive Protein Total Protein 6.2 L Albumin 3.1 L PTH Pre-Incision PTH Post-Excision Miscellaneous Test 06/06/17 06/06/17 06/07/17 05:07 07:13 03:53 WBC RBC Hgb Hct POC Hct MCV MCH RDW [place] % (Auto) [place] # Seg Neutrophils % Seg Neuts % (Manual) Lymphocytes % (Manual) Monocytes % (Manual) Nucleated RBC % Seg Neutrophils # Seg Neutrophils # Man Lymphocytes # (Manual) Monocytes # (Manual) Eosinophils # (Manual) Basophils # (Manual) PT INR POC ABG pH ABG pH POC ABG pCO2 POC ABG pO2 116 H 137 H ABG pO2 ABG HCO3 ABG O2 Saturation ABG Base Excess ABG Hemoglobin POC Sodium POC Potassium Sodium Potassium Chloride Carbon Dioxide POC BUN BUN 32 H Creatinine 4.9 H Glucose 115 H POC Glucose Calcium 7.9 L Phosphorus ALT C-Reactive Protein Total Protein 5.7 L Albumin 3.3 L PTH Pre-Incision PTH Post-Excision Miscellaneous Test 06/07/17 06/07/17 06/07/17 05:21 05:21 16:54 WBC RBC Hgb Hct POC Hct MCV 75 L MCH 24 L RDW 18.7 H [place] % (Auto) [place] # Seg Neutrophils % Seg Neuts % (Manual) Lymphocytes % (Manual) Monocytes % (Manual) Nucleated RBC % Seg Neutrophils # Seg Neutrophils # Man Lymphocytes # (Manual) Monocytes # (Manual) Eosinophils # (Manual) Basophils # (Manual) PT INR POC ABG pH ABG pH POC ABG pCO2 POC ABG pO2 ABG pO2 ABG HCO3 ABG O2 Saturation ABG Base Excess ABG Hemoglobin POC Sodium POC Potassium Sodium Potassium 5.4 H Chloride Carbon Dioxide POC BUN BUN 52 H Creatinine 6.2 H Glucose 107 H POC Glucose 110 H Calcium 8.0 L Phosphorus ALT C-Reactive Protein Total Protein Albumin PTH Pre-Incision PTH Post-Excision Miscellaneous Test 06/07/17 06/07/17 06/08/17 17:38 23:32 04:00 WBC RBC Hgb Hct POC Hct MCV 77 L MCH 23 L RDW 18.3 H [place] % (Auto) [place] # Seg Neutrophils % Seg Neuts % (Manual) 78.0 H Lymphocytes % (Manual) Monocytes % (Manual) Nucleated RBC % 3.0 H Seg Neutrophils # Seg Neutrophils # Man 7.8 H Lymphocytes # (Manual) Monocytes # (Manual) Eosinophils # (Manual) Basophils # (Manual) PT INR POC ABG pH 7.310 L ABG pH POC ABG pCO2 51.9 H POC ABG pO2 ABG pO2 ABG HCO3 ABG O2 Saturation ABG Base Excess ABG Hemoglobin POC Sodium POC Potassium Sodium Potassium Chloride Carbon Dioxide POC BUN BUN Creatinine Glucose POC Glucose 63 L Calcium Phosphorus ALT C-Reactive Protein Total Protein Albumin PTH Pre-Incision PTH Post-Excision Miscellaneous Test 06/08/17 06/08/17 06/08/17 04:00 10:51 11:25 WBC RBC Hgb Hct POC Hct MCV MCH RDW [place] % (Auto) [place] # Seg Neutrophils % Seg Neuts % (Manual) Lymphocytes % (Manual) Monocytes % (Manual) Nucleated RBC % Seg Neutrophils # Seg Neutrophils # Man Lymphocytes # (Manual) Monocytes # (Manual) Eosinophils # (Manual) Basophils # (Manual) PT INR POC ABG pH 7.336 L ABG pH POC ABG pCO2 55.1 H POC ABG pO2 ABG pO2 ABG HCO3 ABG O2 Saturation ABG Base Excess ABG Hemoglobin POC Sodium POC Potassium Sodium Potassium Chloride 96.9 L Carbon Dioxide POC BUN BUN 29 H Creatinine 4.6 H Glucose POC Glucose 108 H Calcium 8.3 L Phosphorus ALT C-Reactive Protein Total Protein Albumin PTH Pre-Incision PTH Post-Excision Miscellaneous Test 06/08/17 06/09/17 06/09/17 14:22 11:42 11:42 WBC RBC Hgb Hct POC Hct MCV 76 L MCH 24 L RDW 18.3 H [place] % (Auto) [place] # Seg Neutrophils % Seg Neuts % (Manual) 80.0 H Lymphocytes % (Manual) 10.0 L Monocytes % (Manual) Nucleated RBC % 2.0 H Seg Neutrophils # Seg Neutrophils # Man Lymphocytes # (Manual) 1.0 L Monocytes # (Manual) Eosinophils # (Manual) Basophils # (Manual) PT INR POC ABG pH ABG pH POC ABG pCO2 52.8 H POC ABG pO2 77 L ABG pO2 ABG HCO3 ABG O2 Saturation ABG Base Excess ABG Hemoglobin POC Sodium POC Potassium Sodium Potassium 5.4 H D Chloride 97.1 L Carbon Dioxide POC BUN BUN 58 H Creatinine 6.6 H Glucose POC Glucose Calcium 7.2 L Phosphorus ALT C-Reactive Protein Total Protein Albumin PTH Pre-Incision PTH Post-Excision Miscellaneous Test 06/09/17 06/10/17 06/10/17 12:04 03:29 03:29 WBC 13.7 H RBC Hgb Hct POC Hct MCV 77 L MCH 24 L RDW 17.9 H [place] % (Auto) [place] # Seg Neutrophils % Seg Neuts % (Manual) 82.0 H Lymphocytes % (Manual) 7.0 L Monocytes % (Manual) Nucleated RBC % 6.0 H Seg Neutrophils # Seg Neutrophils # Man 11.2 H Lymphocytes # (Manual) 1.0 L Monocytes # (Manual) Eosinophils # (Manual) Basophils # (Manual) PT INR POC ABG pH ABG pH POC ABG pCO2 POC ABG pO2 ABG pO2 ABG HCO3 ABG O2 Saturation ABG Base Excess ABG Hemoglobin POC Sodium POC Potassium Sodium Potassium Chloride 94.2 L Carbon Dioxide POC BUN BUN 32 H Creatinine 4.6 H Glucose 106 H POC Glucose 106 H Calcium 8.0 L Phosphorus ALT C-Reactive Protein Total Protein Albumin PTH Pre-Incision PTH Post-Excision Miscellaneous Test 06/10/17 06/11/17 06/11/17 05:27 06:00 06:00 WBC 11.8 H RBC Hgb Hct POC Hct MCV 77 L MCH 24 L RDW 18.3 H [place] % (Auto) [place] # Seg Neutrophils % Seg Neuts % (Manual) 88.0 H Lymphocytes % (Manual) 7.0 L Monocytes % (Manual) Nucleated RBC % 1.0 H Seg Neutrophils # Seg Neutrophils # Man 10.4 H Lymphocytes # (Manual) 0.8 L Monocytes # (Manual) Eosinophils # (Manual) Basophils # (Manual) PT INR POC ABG pH ABG pH POC ABG pCO2 POC ABG pO2 ABG pO2 ABG HCO3 ABG O2 Saturation ABG Base Excess ABG Hemoglobin POC Sodium POC Potassium Sodium Potassium Chloride Carbon Dioxide POC BUN BUN 53 H Creatinine 6.0 H Glucose POC Glucose 106 H Calcium 6.3 L D Phosphorus ALT C-Reactive Protein Total Protein Albumin PTH Pre-Incision PTH Post-Excision Miscellaneous Test 06/11/17 06/11/17 06/11/17 06:51 12:10 16:54 WBC RBC Hgb Hct POC Hct MCV MCH RDW [place] % (Auto) [place] # Seg Neutrophils % Seg Neuts % (Manual) Lymphocytes % (Manual) Monocytes % (Manual) Nucleated RBC % Seg Neutrophils # Seg Neutrophils # Man Lymphocytes # (Manual) Monocytes # (Manual) Eosinophils # (Manual) Basophils # (Manual) PT INR POC ABG pH 7.556 H ABG pH POC ABG pCO2 34.8 L POC ABG pO2 125 H ABG pO2 ABG HCO3 ABG O2 Saturation ABG Base Excess ABG Hemoglobin POC Sodium POC Potassium Sodium Potassium Chloride Carbon Dioxide POC BUN BUN Creatinine Glucose POC Glucose 115 H 106 H Calcium Phosphorus ALT C-Reactive Protein Total Protein Albumin PTH Pre-Incision PTH Post-Excision Miscellaneous Test 06/11/17 06/12/17 06/12/17 20:20 00:06 04:20 WBC RBC Hgb Hct POC Hct MCV MCH RDW [place] % (Auto) [place] # Seg Neutrophils % Seg Neuts % (Manual) Lymphocytes % (Manual) Monocytes % (Manual) Nucleated RBC % Seg Neutrophils # Seg Neutrophils # Man Lymphocytes # (Manual) Monocytes # (Manual) Eosinophils # (Manual) Basophils # (Manual) PT INR POC ABG pH ABG pH 7.512 H 7.514 H POC ABG pCO2 POC ABG pO2 ABG pO2 148.5 H 209.1 H ABG HCO3 ABG O2 Saturation 99.3 H ABG Base Excess ABG Hemoglobin POC Sodium POC Potassium Sodium Potassium Chloride Carbon Dioxide POC BUN BUN Creatinine Glucose POC Glucose 108 H Calcium Phosphorus ALT C-Reactive Protein Total Protein Albumin PTH Pre-Incision PTH Post-Excision Miscellaneous Test 06/12/17 06/12/17 06/12/17 05:24 05:30 05:30 WBC 14.3 H RBC Hgb Hct POC Hct MCV 75 L MCH 24 L RDW 18.5 H [place] % (Auto) [place] # Seg Neutrophils % Seg Neuts % (Manual) 73.0 H Lymphocytes % (Manual) 6.0 L Monocytes % (Manual) 9.0 H Nucleated RBC % 1.0 H Seg Neutrophils # Seg Neutrophils # Man 10.4 H Lymphocytes # (Manual) 0.9 L Monocytes # (Manual) 1.3 H Eosinophils # (Manual) Basophils # (Manual) PT INR POC ABG pH ABG pH POC ABG pCO2 POC ABG pO2 ABG pO2 ABG HCO3 ABG O2 Saturation ABG Base Excess ABG Hemoglobin POC Sodium POC Potassium Sodium 131 L D Potassium Chloride 90.6 L Carbon Dioxide POC BUN BUN 51 H Creatinine 6.5 H Glucose POC Glucose 109 H Calcium Phosphorus ALT C-Reactive Protein Total Protein Albumin PTH Pre-Incision PTH Post-Excision Miscellaneous Test 06/12/17 06/13/17 06/13/17 11:46 04:15 04:55 WBC 17.9 H RBC Hgb Hct POC Hct MCV 75 L MCH 24 L RDW 18.5 H [place] % (Auto) [place] # Seg Neutrophils % Seg Neuts % (Manual) 75.0 H Lymphocytes % (Manual) 6.0 L Monocytes % (Manual) 9.0 H Nucleated RBC % Seg Neutrophils # Seg Neutrophils # Man 13.4 H Lymphocytes # (Manual) 1.1 L Monocytes # (Manual) 1.6 H Eosinophils # (Manual) 0.5 H Basophils # (Manual) 0.2 H PT INR POC ABG pH ABG pH POC ABG pCO2 POC ABG pO2 ABG pO2 131.0 H ABG HCO3 ABG O2 Saturation ABG Base Excess ABG Hemoglobin 10.5 L POC Sodium POC Potassium Sodium Potassium Chloride Carbon Dioxide POC BUN BUN Creatinine Glucose POC Glucose 116 H Calcium Phosphorus ALT C-Reactive Protein Total Protein Albumin PTH Pre-Incision PTH Post-Excision Miscellaneous Test 06/13/17 06/13/17 06/14/17 04:55 17:23 04:30 WBC 17.8 H RBC Hgb 9.7 L Hct POC Hct MCV 76 L MCH 24 L RDW 18.3 H [place] % (Auto) [place] # Seg Neutrophils % Seg Neuts % (Manual) 74.0 H Lymphocytes % (Manual) 6.0 L Monocytes % (Manual) 9.0 H Nucleated RBC % Seg Neutrophils # Seg Neutrophils # Man 13.2 H Lymphocytes # (Manual) 1.1 L Monocytes # (Manual) 1.6 H Eosinophils # (Manual) Basophils # (Manual) PT INR POC ABG pH ABG pH POC ABG pCO2 POC ABG pO2 ABG pO2 ABG HCO3 ABG O2 Saturation ABG Base Excess ABG Hemoglobin POC Sodium POC Potassium Sodium 128 L Potassium Chloride 88.9 L Carbon Dioxide POC BUN BUN 73 H Creatinine 7.6 H Glucose 115 H POC Glucose 113 H Calcium 8.1 L Phosphorus ALT C-Reactive Protein Total Protein Albumin PTH Pre-Incision PTH Post-Excision Miscellaneous Test 06/14/17 06/14/17 06/14/17 04:30 05:30 05:49 WBC RBC Hgb Hct POC Hct MCV MCH RDW [place] % (Auto) [place] # Seg Neutrophils % Seg Neuts % (Manual) Lymphocytes % (Manual) Monocytes % (Manual) Nucleated RBC % Seg Neutrophils # Seg Neutrophils # Man Lymphocytes # (Manual) Monocytes # (Manual) Eosinophils # (Manual) Basophils # (Manual) PT INR POC ABG pH ABG pH POC ABG pCO2 POC ABG pO2 ABG pO2 109.3 H ABG HCO3 ABG O2 Saturation ABG Base Excess ABG Hemoglobin 10.7 L POC Sodium POC Potassium Sodium 124 L Potassium Chloride 84.3 L Carbon Dioxide POC BUN BUN 86 H Creatinine 9.0 H Glucose 106 H POC Glucose 111 H Calcium 8.1 L Phosphorus ALT C-Reactive Protein Total Protein Albumin PTH Pre-Incision PTH Post-Excision Miscellaneous Test 06/14/17 06/14/17 06/14/17 12:27 16:05 23:35 WBC RBC Hgb Hct POC Hct MCV MCH RDW [place] % (Auto) [place] # Seg Neutrophils % Seg Neuts % (Manual) Lymphocytes % (Manual) Monocytes % (Manual) Nucleated RBC % Seg Neutrophils # Seg Neutrophils # Man Lymphocytes # (Manual) Monocytes # (Manual) Eosinophils # (Manual) Basophils # (Manual) PT INR POC ABG pH ABG pH POC ABG pCO2 POC ABG pO2 ABG pO2 ABG HCO3 ABG O2 Saturation ABG Base Excess ABG Hemoglobin POC Sodium POC Potassium Sodium Potassium Chloride Carbon Dioxide POC BUN BUN Creatinine Glucose POC Glucose 139 H 133 H 147 H Calcium Phosphorus ALT C-Reactive Protein Total Protein Albumin PTH Pre-Incision PTH Post-Excision Miscellaneous Test 06/15/17 06/15/17 06/15/17 05:05 06:00 06:00 WBC 21.4 H RBC Hgb 9.2 L Hct POC Hct MCV 77 L MCH 23 L RDW 18.8 H [place] % (Auto) [place] # Seg Neutrophils % Seg Neuts % (Manual) 86.0 H Lymphocytes % (Manual) 2.0 L Monocytes % (Manual) Nucleated RBC % 1.0 H Seg Neutrophils # Seg Neutrophils # Man 18.4 H Lymphocytes # (Manual) 0.4 L Monocytes # (Manual) 1.5 H Eosinophils # (Manual) Basophils # (Manual) PT INR POC ABG pH ABG pH POC ABG pCO2 POC ABG pO2 ABG pO2 ABG HCO3 ABG O2 Saturation ABG Base Excess ABG Hemoglobin POC Sodium POC Potassium Sodium 132 L D Potassium Chloride 91.5 L Carbon Dioxide POC BUN BUN 59 H Creatinine 6.6 H Glucose 116 H POC Glucose 145 H Calcium Phosphorus ALT C-Reactive Protein Total Protein Albumin PTH Pre-Incision PTH Post-Excision Miscellaneous Test 06/15/17 06/15/17 06/15/17 12:04 17:55 23:40 WBC RBC Hgb Hct POC Hct MCV MCH RDW [place] % (Auto) [place] # Seg Neutrophils % Seg Neuts % (Manual) Lymphocytes % (Manual) Monocytes % (Manual) Nucleated RBC % Seg Neutrophils # Seg Neutrophils # Man Lymphocytes # (Manual) Monocytes # (Manual) Eosinophils # (Manual) Basophils # (Manual) PT INR POC ABG pH ABG pH POC ABG pCO2 POC ABG pO2 ABG pO2 ABG HCO3 ABG O2 Saturation ABG Base Excess ABG Hemoglobin POC Sodium POC Potassium Sodium Potassium Chloride Carbon Dioxide POC BUN BUN Creatinine Glucose POC Glucose 109 H 119 H 123 H Calcium Phosphorus ALT C-Reactive Protein Total Protein Albumin PTH Pre-Incision PTH Post-Excision Miscellaneous Test 06/15/17 06/16/17 06/16/17 Unknown 06:00 08:45 WBC 21.9 H RBC Hgb 8.9 L Hct 29.0 L POC Hct MCV 77 L MCH 24 L RDW 18.1 H [place] % (Auto) 11.2 H [place] # 1.6 H Seg Neutrophils % 82.8 H Seg Neuts % (Manual) 78.0 H Lymphocytes % (Manual) 3.0 L Monocytes % (Manual) 9.0 H Nucleated RBC % 1.0 H Seg Neutrophils # 12.2 H Seg Neutrophils # Man 17.1 H Lymphocytes # (Manual) 0.7 L Monocytes # (Manual) 2.0 H Eosinophils # (Manual) Basophils # (Manual) 0.2 H PT INR POC ABG pH ABG pH POC ABG pCO2 POC ABG pO2 ABG pO2 115.7 H ABG HCO3 27.6 H ABG O2 Saturation ABG Base Excess ABG Hemoglobin 9.2 L POC Sodium POC Potassium Sodium Potassium 2.7 L* D Chloride 111.6 H Carbon Dioxide 17 L D POC BUN BUN 52 H Creatinine 5.0 H Glucose POC Glucose Calcium 5.3 L* D Phosphorus ALT C-Reactive Protein Total Protein Albumin PTH Pre-Incision PTH Post-Excision Miscellaneous Test 06/16/17 06/16/17 06/16/17 09:25 11:00 12:07 WBC RBC Hgb Hct POC Hct MCV MCH RDW [place] % (Auto) [place] # Seg Neutrophils % Seg Neuts % (Manual) Lymphocytes % (Manual) Monocytes % (Manual) Nucleated RBC % Seg Neutrophils # Seg Neutrophils # Man Lymphocytes # (Manual) Monocytes # (Manual) Eosinophils # (Manual) Basophils # (Manual) PT INR POC ABG pH ABG pH POC ABG pCO2 POC ABG pO2 ABG pO2 102.0 H ABG HCO3 27.1 H ABG O2 Saturation ABG Base Excess ABG Hemoglobin 9.0 L POC Sodium POC Potassium Sodium Potassium Chloride 95.2 L Carbon Dioxide POC BUN BUN 60 H Creatinine 6.3 H Glucose 114 H POC Glucose 111 H Calcium 10.6 H D Phosphorus ALT C-Reactive Protein Total Protein Albumin PTH Pre-Incision PTH Post-Excision Miscellaneous Test 06/16/17 06/16/17 06/17/17 17:20 17:51 00:10 WBC RBC Hgb Hct POC Hct MCV MCH RDW [place] % (Auto) [place] # Seg Neutrophils % Seg Neuts % (Manual) Lymphocytes % (Manual) Monocytes % (Manual) Nucleated RBC % Seg Neutrophils # Seg Neutrophils # Man Lymphocytes # (Manual) Monocytes # (Manual) Eosinophils # (Manual) Basophils # (Manual) PT INR POC ABG pH ABG pH POC ABG pCO2 POC ABG pO2 ABG pO2 ABG HCO3 ABG O2 Saturation ABG Base Excess ABG Hemoglobin POC Sodium POC Potassium Sodium Potassium Chloride 97.4 L Carbon Dioxide POC BUN BUN 35 H Creatinine 4.4 H Glucose 116 H POC Glucose 128 H 114 H Calcium Phosphorus ALT C-Reactive Protein Total Protein Albumin PTH Pre-Incision PTH Post-Excision Miscellaneous Test 06/17/17 06/17/17 06/18/17 04:00 05:42 08:10 WBC 16.1 H RBC 3.55 L Hgb 8.4 L Hct 27.2 L POC Hct MCV 76 L MCH 24 L RDW 18.5 H [place] % (Auto) [place] # Seg Neutrophils % Seg Neuts % (Manual) Lymphocytes % (Manual) Monocytes % (Manual) Nucleated RBC % Seg Neutrophils # Seg Neutrophils # Man Lymphocytes # (Manual) Monocytes # (Manual) Eosinophils # (Manual) Basophils # (Manual) PT INR POC ABG pH ABG pH POC ABG pCO2 POC ABG pO2 ABG pO2 ABG HCO3 ABG O2 Saturation ABG Base Excess ABG Hemoglobin POC Sodium POC Potassium Sodium 136 L Potassium Chloride 94.5 L Carbon Dioxide POC BUN BUN 44 H Creatinine 5.3 H Glucose 107 H POC Glucose 110 H Calcium Phosphorus ALT C-Reactive Protein Total Protein Albumin PTH Pre-Incision PTH Post-Excision Miscellaneous Test 06/18/17 06/19/17 06/19/17 08:10 05:23 07:14 WBC 19.3 H RBC Hgb 9.2 L Hct 30.1 L POC Hct MCV 77 L MCH 23 L RDW 18.2 H [place] % (Auto) [place] # Seg Neutrophils % Seg Neuts % (Manual) Lymphocytes % (Manual) Monocytes % (Manual) Nucleated RBC % Seg Neutrophils # Seg Neutrophils # Man Lymphocytes # (Manual) Monocytes # (Manual) Eosinophils # (Manual) Basophils # (Manual) PT INR POC ABG pH ABG pH POC ABG pCO2 POC ABG pO2 ABG pO2 116.2 H ABG HCO3 28.5 H ABG O2 Saturation ABG Base Excess ABG Hemoglobin 9.1 L POC Sodium POC Potassium Sodium 134 L Potassium Chloride 91.6 L Carbon Dioxide POC BUN BUN 68 H Creatinine 7.2 H Glucose POC Glucose Calcium 10.3 H Phosphorus ALT 6 L C-Reactive Protein Total Protein 5.9 L Albumin 2.8 L PTH Pre-Incision PTH Post-Excision Miscellaneous Test 06/19/17 06/19/17 06/20/17 07:15 23:37 04:40 WBC RBC Hgb Hct POC Hct MCV MCH RDW [place] % (Auto) [place] # Seg Neutrophils % Seg Neuts % (Manual) Lymphocytes % (Manual) Monocytes % (Manual) Nucleated RBC % Seg Neutrophils # Seg Neutrophils # Man Lymphocytes # (Manual) Monocytes # (Manual) Eosinophils # (Manual) Basophils # (Manual) PT INR POC ABG pH ABG pH POC ABG pCO2 POC ABG pO2 ABG pO2 ABG HCO3 ABG O2 Saturation ABG Base Excess ABG Hemoglobin POC Sodium POC Potassium Sodium 135 L Potassium Chloride 94.3 L Carbon Dioxide POC BUN BUN 41 H Creatinine 5.4 H Glucose 117 H POC Glucose 152 H 140 H Calcium 10.3 H Phosphorus ALT C-Reactive Protein Total Protein Albumin PTH Pre-Incision PTH Post-Excision Miscellaneous Test 06/21/17 06/21/17 06/21/17 05:13 05:45 05:45 WBC 18.8 H RBC 3.54 L Hgb 8.2 L Hct 27.6 L POC Hct MCV 78 L MCH 23 L RDW 18.6 H [place] % (Auto) [place] # Seg Neutrophils % Seg Neuts % (Manual) Lymphocytes % (Manual) Monocytes % (Manual) Nucleated RBC % Seg Neutrophils # Seg Neutrophils # Man Lymphocytes # (Manual) Monocytes # (Manual) Eosinophils # (Manual) Basophils # (Manual) PT 15.2 H INR 1.14 H POC ABG pH ABG pH POC ABG pCO2 POC ABG pO2 ABG pO2 ABG HCO3 ABG O2 Saturation ABG Base Excess ABG Hemoglobin POC Sodium POC Potassium Sodium Potassium Chloride Carbon Dioxide POC BUN BUN Creatinine Glucose POC Glucose 140 H Calcium Phosphorus ALT C-Reactive Protein Total Protein Albumin PTH Pre-Incision PTH Post-Excision Miscellaneous Test 06/21/17 06/21/17 06/21/17 05:45 08:28 08:28 WBC RBC Hgb Hct POC Hct MCV MCH RDW [place] % (Auto) [place] # Seg Neutrophils % Seg Neuts % (Manual) Lymphocytes % (Manual) Monocytes % (Manual) Nucleated RBC % Seg Neutrophils # Seg Neutrophils # Man Lymphocytes # (Manual) Monocytes # (Manual) Eosinophils # (Manual) Basophils # (Manual) PT INR POC ABG pH ABG pH POC ABG pCO2 POC ABG pO2 ABG pO2 ABG HCO3 ABG O2 Saturation ABG Base Excess ABG Hemoglobin POC Sodium POC Potassium Sodium Potassium Chloride 95.5 L Carbon Dioxide POC BUN BUN 38 H Creatinine 4.8 H Glucose 126 H POC Glucose Calcium Phosphorus ALT C-Reactive Protein 13.60 H Total Protein Albumin PTH Pre-Incision PTH Post-Excision Miscellaneous Test Flexitest 1 H 10/16/17 10/17/17 10/17/17 23:21 04:53 05:00 WBC RBC Hgb Hct POC Hct MCV MCH RDW [place] % (Auto) [place] # Seg Neutrophils % Seg Neuts % (Manual) Lymphocytes % (Manual) Monocytes % (Manual) Nucleated RBC % Seg Neutrophils # Seg Neutrophils # Man Lymphocytes # (Manual) Monocytes # (Manual) Eosinophils # (Manual) Basophils # (Manual) PT INR POC ABG pH ABG pH POC ABG pCO2 POC ABG pO2 ABG pO2 110.7 H ABG HCO3 28.2 H ABG O2 Saturation ABG Base Excess 3.7 H ABG Hemoglobin 8.9 L POC Sodium POC Potassium Sodium Potassium Chloride Carbon Dioxide POC BUN BUN Creatinine Glucose POC Glucose 117 H 111 H Calcium Phosphorus ALT C-Reactive Protein Total Protein Albumin PTH Pre-Incision PTH Post-Excision Miscellaneous Test 06/22/17 06/22/17 06/22/17 11:49 11:59 11:59 WBC 15.4 H RBC Hgb 8.6 L Hct 28.4 L POC Hct MCV 77 L MCH 23 L RDW 18.4 H [place] % (Auto) [place] # Seg Neutrophils % Seg Neuts % (Manual) Lymphocytes % (Manual) Monocytes % (Manual) Nucleated RBC % Seg Neutrophils # Seg Neutrophils # Man Lymphocytes # (Manual) Monocytes # (Manual) Eosinophils # (Manual) Basophils # (Manual) PT INR POC ABG pH ABG pH POC ABG pCO2 POC ABG pO2 ABG pO2 ABG HCO3 ABG O2 Saturation ABG Base Excess ABG Hemoglobin POC Sodium POC Potassium Sodium Potassium Chloride Carbon Dioxide POC BUN BUN 25 H Creatinine 4.2 H Glucose 101 H POC Glucose 123 H Calcium Phosphorus ALT C-Reactive Protein Total Protein Albumin PTH Pre-Incision PTH Post-Excision Miscellaneous Test 06/23/17 06/23/17 06/23/17 02:49 02:49 04:45 WBC 12.1 H RBC 3.53 L Hgb 8.4 L Hct 27.2 L POC Hct MCV 77 L MCH 24 L RDW 18.5 H [place] % (Auto) [place] # Seg Neutrophils % Seg Neuts % (Manual) Lymphocytes % (Manual) Monocytes % (Manual) Nucleated RBC % Seg Neutrophils # Seg Neutrophils # Man Lymphocytes # (Manual) Monocytes # (Manual) Eosinophils # (Manual) Basophils # (Manual) PT INR POC ABG pH 7.530 H ABG pH POC ABG pCO2 34.7 L POC ABG pO2 136 H ABG pO2 ABG HCO3 ABG O2 Saturation ABG Base Excess ABG Hemoglobin POC Sodium POC Potassium Sodium Potassium Chloride Carbon Dioxide POC BUN BUN 36 H Creatinine 5.6 H Glucose POC Glucose Calcium Phosphorus ALT C-Reactive Protein Total Protein Albumin PTH Pre-Incision PTH Post-Excision Miscellaneous Test 06/23/17 06/23/17 06/24/17 19:16 21:09 05:02 WBC RBC Hgb Hct POC Hct MCV MCH RDW [place] % (Auto) [place] # Seg Neutrophils % Seg Neuts % (Manual) Lymphocytes % (Manual) Monocytes % (Manual) Nucleated RBC % Seg Neutrophils # Seg Neutrophils # Man Lymphocytes # (Manual) Monocytes # (Manual) Eosinophils # (Manual) Basophils # (Manual) PT INR POC ABG pH 7.511 H ABG pH POC ABG pCO2 POC ABG pO2 111 H ABG pO2 ABG HCO3 ABG O2 Saturation ABG Base Excess ABG Hemoglobin POC Sodium POC Potassium Sodium Potassium Chloride Carbon Dioxide POC BUN BUN Creatinine Glucose POC Glucose Calcium 10.8 H D Phosphorus 1.70 L 1.90 L ALT C-Reactive Protein Total Protein Albumin PTH Pre-Incision PTH Post-Excision Miscellaneous Test 06/24/17 06/24/17 06/24/17 05:04 05:04 05:29 WBC 14.0 H RBC Hgb 9.5 L Hct 29.9 L POC Hct MCV 77 L MCH 24 L RDW 18.4 H [place] % (Auto) [place] # Seg Neutrophils % Seg Neuts % (Manual) Lymphocytes % (Manual) Monocytes % (Manual) Nucleated RBC % Seg Neutrophils # Seg Neutrophils # Man Lymphocytes # (Manual) Monocytes # (Manual) Eosinophils # (Manual) Basophils # (Manual) PT INR POC ABG pH ABG pH POC ABG pCO2 POC ABG pO2 ABG pO2 ABG HCO3 ABG O2 Saturation ABG Base Excess ABG Hemoglobin POC Sodium POC Potassium Sodium Potassium Chloride 94.8 L Carbon Dioxide POC BUN BUN 26 H Creatinine 4.4 H Glucose 106 H POC Glucose 124 H Calcium 10.8 H Phosphorus ALT C-Reactive Protein Total Protein Albumin PTH Pre-Incision PTH Post-Excision Miscellaneous Test 06/25/17 06/25/17 03:37 03:37 WBC 13.4 H RBC Hgb 9.2 L Hct 29.5 L POC Hct MCV 77 L MCH 24 L RDW 19.0 H [place] % (Auto) [place] # Seg Neutrophils % Seg Neuts % (Manual) Lymphocytes % (Manual) Monocytes % (Manual) Nucleated RBC % Seg Neutrophils # Seg Neutrophils # Man Lymphocytes # (Manual) Monocytes # (Manual) Eosinophils # (Manual) Basophils # (Manual) PT INR POC ABG pH ABG pH POC ABG pCO2 POC ABG pO2 ABG pO2 ABG HCO3 ABG O2 Saturation ABG Base Excess ABG Hemoglobin POC Sodium POC Potassium Sodium 133 L Potassium 3.4 L Chloride 90.7 L Carbon Dioxide POC BUN BUN 40 H Creatinine 6.4 H Glucose POC Glucose Calcium Phosphorus ALT C-Reactive Protein Total Protein Albumin PTH Pre-Incision PTH Post-Excision Miscellaneous Test
[2017-06-25] MEDS: ROCEPHIN/NS 2 GM/100 ML 2 GM/100 ML BAG IV SCH (10:05)
[2017-06-25] MEDS: BABY ASPIRIN PO SCH (10:06)
[2017-06-25] MEDS: ROCALTROL PO SCH (10:06)
[2017-06-25] MEDS: PEPCID PO SCH (10:06)
[2017-06-25] MEDS: HEPARIN SUB-Q SCH ×2 (10:06→22:44)
--- NOTE | 2017-06-25 10:16 | Progress Note ---
Assessment and Plan Assessment and plan: Acute hypoxic respiratory failure on mechanical ventilation more than 96 hours re-intubated, continue vent and s/p trach on 06/21/17 cont periodic breathing treatment, pulmonary following Acute left MCA stroke with right-sided weakness MRI brain showed large left MCA acute infarct Continue Aspirin and statin Vascular surgery consulted no intervention needed received mannitol for IC edema Sepsis May have Aspiration pneumonia which is obscured by pulmonary edema Blood cultures reviewed growing Proteus mirabilis Now on Ceftriaxone Metabolic Enchephalopathy due to stroke, s/p mannitol Status post subtotal parathyroidectomy Continue postop care per surgery continue to replete calcium as needed End-stage renal disease on hemodialysis Continue hemodialysis as scheduled per nephrology Hyperkalemia Now resolved. Hypertension Continue prn medication History of breast cancer status post mastectomy Stable Morbid obesity with BMI > 40 Nutrition input appreciated Moderate malnutrition continue tube feeds Hyponatremia Sodium level 133 today Hypotension, persisting Patient on Midodrine. Discussed with Dr. Beckwith. CT Abd/Pelvis negative for intra-abdominal abscess. Discussed with Aunt at bedside yesterday. History Interval history: Patient still intubated, Hypotension improving, no fever Hospitalist Physical - Physical exam Narrative exam: Gen Appearance: Not in acute distress, morbidly obese HEENT: normocephalic, atraumatic Neck: supple, no JVD Lungs: clear to auscultation bilaterally, no crackles or wheezes Heart: S1 and S2 regular, no murmurs, rubs or gallop Abdomen: Soft , non tender, non distended, PEG tube, normal bowel sounds Extremity: No edema, clubbing or cyanosis Neuro : Tracheostomy, sedated - Constitutional Vitals: Temp Pulse Resp BP Pulse Ox 97.9 F 67 19 105/60 99 06/25/17 03:37 06/25/17 07:00 06/25/17 07:00 06/25/17 07:00 06/25/17 10:13 General appearance: Present: no acute distress, other (withdrawn, nonverbal) Results - Labs CBC & Chem 7: 06/25/17 03:37 06/25/17 03:37 Labs: Laboratory Last Values WBC 13.4 K/mm3 (4.5-11.0) H 06/25/17 03:37 RBC 3.86 M/mm3 (3.65-5.03) 06/25/17 03:37 Hgb 9.2 gm/dl (10.1-14.3) L 06/25/17 03:37 POC Hgb 14.3 (12-17) 06/04/17 16:22 Hct 29.5 % (30.3-42.9) L 06/25/17 03:37 POC Hct 42 (38-51) 06/04/17 16:22 MCV 77 fl (79-97) L 06/25/17 03:37 MCH 24 pg (28-32) L 06/25/17 03:37 MCHC 31 % (30-34) 06/25/17 03:37 RDW 19.0 % (13.2-15.2) H 06/25/17 03:37 Plt Count 239 K/mm3 (140-440) 06/25/17 03:37 [place] % (Auto) 11.2 % (0.0-7.3) H 06/16/17 08:45 Eos % (Auto) 1.4 % (0.0-4.3) 06/16/17 08:45 [place] # 1.6 K/mm3 (0.0-0.8) H 06/16/17 08:45 Eos # 0.2 K/mm3 (0.0-0.4) 06/16/17 08:45 Baso # 0.1 K/mm3 (0.0-0.1) 06/16/17 08:45 Add Manual Diff Complete 06/16/17 08:45 Total Counted 100 06/16/17 08:45 Seg Neutrophils % 82.8 % (40.0-70.0) H 06/16/17 08:45 Seg Neuts % (Manual) 78.0 % (40.0-70.0) H 06/16/17 08:45 Band Neutrophils % 1.0 % 06/16/17 08:45 Lymphocytes % (Manual) 3.0 % (13.4-35.0) L 06/16/17 08:45 Reactive Lymphs % (Man) 0 % 06/16/17 08:45 Monocytes % (Manual) 9.0 % (0.0-7.3) H 06/16/17 08:45 Eosinophils % (Manual) 2.0 % (0.0-4.3) 06/16/17 08:45 Basophils % (Manual) 1.0 % (0.0-1.8) 06/16/17 08:45 Metamyelocytes % 6.0 % 06/16/17 08:45 Myelocytes % 0 % 06/16/17 08:45 Promyelocytes % 0 % 06/16/17 08:45 Blast Cells % 0 % 06/16/17 08:45 Nucleated RBC % 1.0 % (0.0-0.9) H 06/16/17 08:45 Seg Neutrophils # 12.2 K/mm3 (1.8-7.7) H 06/16/17 08:45 Seg Neutrophils # Man 17.1 K/mm3 (1.8-7.7) H 06/16/17 08:45 Band Neutrophils # 0.2 K/mm3 06/16/17 08:45 Lymphocytes # (Manual) 0.7 K/mm3 (1.2-5.4) L 06/16/17 08:45 Abs React Lymphs (Man) 0.0 K/mm3 06/16/17 08:45 Monocytes # (Manual) 2.0 K/mm3 (0.0-0.8) H 06/16/17 08:45 Eosinophils # (Manual) 0.4 K/mm3 (0.0-0.4) 06/16/17 08:45 Basophils # (Manual) 0.2 K/mm3 (0.0-0.1) H 06/16/17 08:45 Metamyelocytes # 1.3 K/mm3 06/16/17 08:45 Myelocytes # 0.0 K/mm3 06/16/17 08:45 Promyelocytes # 0.0 K/mm3 06/16/17 08:45 Blast Cells # 0.0 K/mm3 06/16/17 08:45 WBC Morphology Not Reportable 06/16/17 08:45 Hypersegmented Neuts Not Reportable 06/16/17 08:45 Hyposegmented Neuts Not Reportable 06/16/17 08:45 Hypogranular Neuts Not Reportable 06/16/17 08:45 Smudge Cells Not Reportable 06/16/17 08:45 Toxic Granulation Not Reportable 06/16/17 08:45 Toxic Vacuolation Not Reportable 06/16/17 08:45 Dohle Bodies Not Reportable 06/16/17 08:45 Pelger-Huet Anomaly Not Reportable 06/16/17 08:45 Sunita Rods Not Reportable 06/16/17 08:45 Platelet Estimate Cons 06/16/17 08:45 Clumped Platelets Not Reportable 06/16/17 08:45 Plt Clumps, EDTA Not Reportable 06/16/17 08:45 Large Platelets Not Reportable 06/16/17 08:45 Giant Platelets Not Reportable 06/16/17 08:45 Platelet Satelliting Not Reportable 06/16/17 08:45 Plt Morphology Comment Not Reportable 06/16/17 08:45 RBC Morphology Not Reportable 06/16/17 08:45 Dimorphic RBCs Not Reportable 06/16/17 08:45 Polychromasia Not Reportable 06/16/17 08:45 Hypochromasia 2+ 06/16/17 08:45 Poikilocytosis Not Reportable 06/16/17 08:45 Anisocytosis Not Reportable 06/16/17 08:45 Microcytosis 1+ 06/16/17 08:45 Macrocytosis Not Reportable 06/16/17 08:45 Spherocytes Not Reportable 06/16/17 08:45 Pappenheimer Bodies Not Reportable 06/16/17 08:45 Sickle Cells Not Reportable 06/16/17 08:45 Target Cells Not Reportable 06/16/17 08:45 Tear Drop Cells Few 06/16/17 08:45 Ovalocytes Not Reportable 06/16/17 08:45 Helmet Cells Not Reportable 06/16/17 08:45 [place] Bodies Not Reportable 06/16/17 08:45 [place] Rings Not Reportable 06/16/17 08:45 [place]do Cells Not Reportable 06/16/17 08:45 Bite Cells Not Reportable 06/16/17 08:45 Crenated Cell Not Reportable 06/16/17 08:45 Elliptocytes Not Reportable 06/16/17 08:45 Acanthocytes (Spur) Not Reportable 06/16/17 08:45 Rouleaux Not Reportable 06/16/17 08:45 Hemoglobin C Crystals Not Reportable 06/16/17 08:45 Schistocytes Few 06/16/17 08:45 Malaria parasites Not Reportable 06/16/17 08:45 Williams Bodies Not Reportable 06/16/17 08:45 Hem Pathologist Commnt No 06/16/17 08:45 PT 15.2 Sec. (12.2-14.9) H 06/21/17 05:45 INR 1.14 (0.87-1.13) H 06/21/17 05:45 APTT 29.9 Sec. (24.2-36.6) 06/09/17 16:55 POC ABG pH 7.441 (7.35-7.45) 06/24/17 13:15 ABG pH 7.438 pH Units (7.350-7.450) 06/22/17 05:00 POC ABG pCO2 43.9 (35-45) 06/24/17 13:15 ABG pCO2 42.6 mm Hg 06/22/17 05:00 POC ABG pO2 101 (80-105) 06/24/17 13:15 ABG pO2 110.7 mm Hg (80.0-90.0) H 06/22/17 05:00 POC ABG HCO3 29.9 06/24/17 13:15 ABG HCO3 28.2 mmol/L (20.0-26.0) H 06/22/17 05:00 POC ABG Total CO2 31 06/24/17 13:15 POC ABG O2 Sat 98 06/24/17 13:15 ABG O2 Saturation 98.1 % (95.0-99.0) 06/22/17 05:00 ABG O2 Content 12.3 (0.0-44) 06/22/17 05:00 POC ABG Base Excess 6 06/24/17 13:15 ABG Base Excess 3.7 mmol/L (-2.0-3.0) H 06/22/17 05:00 ABG Hemoglobin 8.9 gm/dl (12.0-16.0) L 06/22/17 05:00 ABG Carboxyhemoglobin 1.7 % (0.0-5.0) 06/22/17 05:00 ABG Methemoglobin 0.3 % (0.0-1.5) 06/22/17 05:00 Oxyhemoglobin 96.1 % (95.0-99.0) 06/22/17 05:00 POC Sodium 137 mmol/L (138-146) L 06/04/17 16:22 POC Potassium 5.3 (3.5-4.9) H 06/04/17 16:22 POC Chloride 102 (98-109) 06/04/17 16:22 FiO2 30 % 06/24/17 13:15 Sodium 133 mmol/L (137-145) L 06/25/17 03:37 Potassium 3.4 mmol/L (3.6-5.0) L 06/25/17 03:37 Chloride 90.7 mmol/L (98-107) L 06/25/17 03:37 Carbon Dioxide 25 mmol/L (22-30) 06/25/17 03:37 Anion Gap 21 mmol/L 06/25/17 03:37 POC BUN 45 mg/dl (8-26) H 06/04/17 16:22 BUN 40 mg/dL (7-17) H 06/25/17 03:37 Creatinine 6.4 mg/dL (0.7-1.2) H 06/25/17 03:37 Estimated GFR 8 ml/min 06/25/17 03:37 BUN/Creatinine Ratio 6 % 06/25/17 03:37 Glucose 90 mg/dL (65-100) 06/25/17 03:37 POC Glucose 92 (70-105) 06/24/17 23:55 Osmolality 312 Mosm/kg 06/14/17 09:25 Calcium 9.6 mg/dL (8.4-10.2) 06/25/17 03:37 Phosphorus 1.90 mg/dL (2.5-4.5) L 06/24/17 05:02 Magnesium 1.90 mg/dL (1.7-2.3) 06/16/17 11:00 Total Bilirubin 0.40 mg/dL (0.1-1.2) 06/18/17 08:10 AST 14 units/L (5-40) 06/18/17 08:10 ALT 6 units/L (7-56) L 06/18/17 08:10 Alkaline Phosphatase 92 units/L (35-129) 06/18/17 08:10 C-Reactive Protein 13.60 mg/dL (0.00-1.30) H 06/21/17 08:28 Total Protein 5.9 g/dL (6.3-8.2) L 06/18/17 08:10 Albumin 2.8 g/dL (3.9-5) L 06/18/17 08:10 Albumin/Globulin Ratio 0.9 % 06/18/17 08:10 Triglycerides 132 mg/dL (2-149) 06/09/17 11:49 Cholesterol 171 mg/dL (50-199) 06/09/17 11:49 LDL Cholesterol Direct 95 mg/dL (50-130) 06/09/17 11:49 HDL Cholesterol 50 mg/dL (40-59) 06/09/17 11:49 Cholesterol/HDL Ratio 3.42 % 06/09/17 11:49 PTH Intact 40.84 pg/mL (15-65) 06/23/17 21:09 PTH Pre-Incision 641.9 (11.1-79.5) H 06/04/17 13:55 PTH Post-Excision 154.7 (11.1-79.5) H 06/04/17 13:55 PTH Intact Intraop 5 m Not Reportable 06/04/17 13:55 Random Vancomycin 17.4 ug/mL (0-40.0) 06/21/17 05:45 Miscellaneous Test Flexitest 1 H 06/21/17 08:28 Blood Type O POSITIVE 06/21/17 05:30 Antibody Screen TNR 06/21/17 05:30 JOHN Antibody Screen Negative 06/21/17 05:30
[2017-06-25 10:53] LABS: Calcium 9.7 mg/dL (8.4-10.2)
--- NOTE | 2017-06-25 12:03 | Progress Note ---
Assessment and Plan Assessment: 1) Sepsis: better. Etiology - Proteus septicemia. CRP=13 / Twwcnj=474 (?very high level). CT abd showed no abscess or collection. 2) Proteus septicemia: ? lungs 3) Acute left MCA stroke with right-sided weakness. MRI brain showed large left MCA acute infarct. 4) Secondary hyperparathyroidismelective s/p total parathyroidectomy on 06/04/17 5) ESRD on HD 6) Respiratory failure ? pulmonary edema versus VAP 7) Presumed VAP: tracheal asp + Proteus s/p trach Plan: -contiue ceftriaxone 2 g IV qday - day 7 (from zosyn starting date) -f/u repeat procalcitonin -upon discharge will do levaquin 750 mg PO QOD total 14 days from 06/21 until I am rounding tomorrow Thank you Dr Singh for your consultation, will follow up with you. Paz Bonilla MD Infectious Diseases Specialist [facility] M [phone] O [phone] Subjective Date of service: 06/25/17 Principal diagnosis: ARM/MV/Post hyperparathy./ESRD Interval history: Alert on On t-piece, no fever. BP better Current antibiotics: Ceftriaxone 06/22 Previous Antimicrobials: Zosyn 06/19 Vancomycin 06/19 Microbiology: Blood cultures: 06/19 Proteus 06/21 neg Urine cultures: none Respiratory cultures: 06/04 ngtd 06/20 Proteus Objective - Exam Narrative Exam: General appearance: alert on the vent Eyes: anicteric sclerae, moist conjunctivae; no lid-lag; PERRLA HENT: Atraumatic; oropharynx +NGT Neck: surgical scar well healed +trach Lungs: dillon rhonchi / chest + mastectomy scar well healed CV: RRR Abdomen: Soft, non-tender Extremities: +peripheral edema Skin: Normal temperature, turgor and texture; no rash, ulcers or subcutaneous nodules Psych: sedated. Neuro: sedated Lines: - Constitutional Vitals: Vital Signs Temp Pulse Resp BP Pulse Ox 98 F 75 26 H 116/57 99 06/25/17 08:00 06/25/17 10:00 06/25/17 10:00 06/25/17 10:00 06/25/17 10:13 Temperature -Last 24 Hours Temperature 98 F Temperature 97.9 F Temperature 98.6 F Temperature 98.7 F Temperature 98.4 F Temperature 99.2 F - Labs CBC & Chem 7: 06/25/17 03:37 06/25/17 03:37 Labs: Abnormal lab results 06/25/17 06/25/17 06/25/17 Range/Units 03:37 03:37 11:47 WBC 13.4 H (4.5-11.0) K/mm3 Hgb 9.2 L (10.1-14.3) gm/dl Hct 29.5 L (30.3-42.9) % MCV 77 L (79-97) fl MCH 24 L (28-32) pg RDW 19.0 H (13.2-15.2) % Sodium 133 L (137-145) mmol/L Potassium 3.4 L (3.6-5.0) mmol/L Chloride 90.7 L (98-107) mmol/L BUN 40 H (7-17) mg/dL Creatinine 6.4 H (0.7-1.2) mg/dL POC Glucose 119 H (70-105)
[2017-06-25 12:37] LABS: Phosphorous 4.4 mg/dL (2.5-4.5)
--- NOTE | 2017-06-25 13:51 | Progress Note ---
Assessment and Plan Impression: * ESRD * hypertension * s/p parathyroidectomy * Anemia in esrd * respiratory failure * Acute CVA Plan: * hd q mwf * tums and calcitriol * iv calcium prn * cva workup in progress * uf as tolerated with hd * high calcium bath with hd * epogen with hd * strict i/os * follow up am darryl Subjective Date of service: 06/25/17 Principal diagnosis: ARM/MV/Post hyperparathy./ESRD Interval history: no new complaints Objective - Exam Narrative Exam: General appearance: Present: severe distress, obese - EENT Eyes: Present: PERRL ENT: hearing intact, clear oral mucosa - Neck Neck: Present: supple, normal ROM - Respiratory Respiratory effort: labored Respiratory: bilateral: diminished - Cardiovascular Heart Sounds: Present: S1 & S2. Absent: rub, click - Extremities Extremities: pulses symmetrical, No edema Extremity abnormal: edema Peripheral Pulses: within normal limits - Abdominal Female genitourinary: Present: normal - Integumentary Integumentary: Present: clear, warm, dry - Musculoskeletal Musculoskeletal: generalized weakness - Psychiatric Psychiatric: no intact judgment & insight, no memory intact, agitated - Neurologic Neurologic: CNII-XII intact, moves all extremities - Vital Signs Vital signs: Vital Signs - 12hr 06/25/17 06/25/17 06/25/17 02:00 03:00 03:37 Temperature 97.9 F Pulse Rate 72 69 Respiratory 26 H 21 Rate Blood Pressure 118/61 102/54 O2 Sat by Pulse 100 100 Oximetry O2 Sat by Pulse Oximetry [ Assessment] 06/25/17 06/25/17 06/25/17 04:00 05:00 06:00 Temperature Pulse Rate 74 72 68 Respiratory 22 16 21 Rate Blood Pressure 100/56 115/52 103/54 O2 Sat by Pulse 100 100 100 Oximetry O2 Sat by Pulse Oximetry [ Assessment] 06/25/17 06/25/17 06/25/17 07:00 08:00 09:00 Temperature 98 F Pulse Rate 67 69 73 Respiratory 19 20 24 Rate Blood Pressure 105/60 111/57 111/57 O2 Sat by Pulse 100 98 100 Oximetry O2 Sat by Pulse Oximetry [ Assessment] 06/25/17 06/25/17 06/25/17 09:48 10:00 10:13 Temperature Pulse Rate 75 Respiratory 26 H Rate Blood Pressure 116/57 O2 Sat by Pulse 100 98 99 Oximetry O2 Sat by Pulse 100 Oximetry [ Assessment] 06/25/17 06/25/17 06/25/17 11:00 12:00 13:00 Temperature 98.7 F Pulse Rate 75 76 84 Respiratory 24 19 17 Rate Blood Pressure 107/57 111/52 110/63 O2 Sat by Pulse 99 97 98 Oximetry O2 Sat by Pulse Oximetry [ Assessment] - Lab 06/25/17 03:37 06/25/17 03:37 Most recent lab results ABG pH 7.438 pH Units (7.350-7.450) 06/22/17 05:00 ABG pCO2 42.6 mm Hg 06/22/17 05:00 ABG pO2 110.7 mm Hg (80.0-90.0) H 06/22/17 05:00 ABG HCO3 28.2 mmol/L (20.0-26.0) H 06/22/17 05:00 ABG O2 Saturation 98.1 % (95.0-99.0) 06/22/17 05:00 Calcium 9.7 mg/dL (8.4-10.2) 06/25/17 03:37 Phosphorus 4.40 mg/dL (2.5-4.5) D 06/25/17 03:37 Magnesium 1.90 mg/dL (1.7-2.3) 06/16/17 11:00
[2017-06-25] MEDS ORDERED: NACL 0.9% 100 ML IV PRN (13:54)
[2017-06-25] MEDS: PROAMATINE PO SCH ×2 (14:17→22:44)
[2017-06-25] MEDS ORDERED: DUONEB *Not for PRN Use IH ONE (20:32)
[2017-06-26 05:43] LABS: Hematocrit 31.1 % (30.3-42.9); Hemoglobin 9.7 gm/dl (10.1-14.3); Mean Corpuscular HGB Conc 31 % (30-34); Mean Corpuscular Volume 76 fl (79-97); Platelet Count 300 K/mm3 (140-440); Red Blood Count 4.07 M/mm3 (3.65-5.03); Red Cell Distribution Width 18.4 % (13.2-15.2); White Blood Count 13.1 K/mm3 (4.5-11.0)
[2017-06-26 05:59] LABS: Calcium 9.2 mg/dL (8.4-10.2); Chloride 95.5 mmol/L (98-107); Potassium 3.2 mmol/L (3.6-5.0)
[2017-06-26 06:02] LABS: Mean Corpuscular Hemoglobin 24 pg (28-32)
[2017-06-26] MEDS: PROAMATINE PO SCH ×3 (06:03→22:00)
--- NOTE | 2017-06-26 08:51 | Progress Note ---
Assessment and Plan Assessment and plan: Acute hypoxic respiratory failure on mechanical ventilation more than 96 hours re-intubated, continue vent and s/p trach on 06/21/17 cont periodic breathing treatment, pulmonary following Acute left MCA stroke with right-sided weakness MRI brain showed large left MCA acute infarct Continue Aspirin and statin Vascular surgery consulted no intervention needed received mannitol for IC edema Sepsis May have Aspiration pneumonia which is obscured by pulmonary edema Blood cultures reviewed growing Proteus mirabilis Sputum culture also with proteus mirabilis Now on Ceftriaxone Metabolic Enchephalopathy due to stroke, s/p mannitol Status post subtotal parathyroidectomy Continue postop care per surgery continue to replete calcium as needed End-stage renal disease on hemodialysis Continue hemodialysis as scheduled per nephrology Hyperkalemia Now resolved. Hypertension Continue prn medication History of breast cancer status post mastectomy Stable Morbid obesity with BMI > 40 Nutrition input appreciated Moderate malnutrition continue tube feeds Hyponatremia Improving Sodium level 139 today Hypotension, persisting Patient on Midodrine. Discussed with Dr. Beckwith. CT Abd/Pelvis negative for intra-abdominal abscess. Discussed with Aunt few days ago. History Interval history: Patient still intubated, Hypotension improving, no fever Hospitalist Physical - Physical exam Narrative exam: Gen Appearance: Not in acute distress, morbidly obese HEENT: normocephalic, atraumatic Neck: supple, no JVD Lungs: clear to auscultation bilaterally, no crackles or wheezes Heart: S1 and S2 regular, no murmurs, rubs or gallop Abdomen: Soft , non tender, non distended, PEG tube, normal bowel sounds Extremity: No edema, clubbing or cyanosis Neuro : Tracheostomy, sedated - Constitutional Vitals: Temp Pulse Resp BP Pulse Ox 98.8 F 83 22 138/54 98 06/26/17 08:00 06/26/17 08:00 06/26/17 08:00 06/26/17 08:00 06/26/17 08:00 General appearance: Present: no acute distress, other (withdrawn, nonverbal) Results - Labs CBC & Chem 7: 06/26/17 05:21 06/26/17 05:21 Labs: Laboratory Last Values WBC 13.1 K/mm3 (4.5-11.0) H 06/26/17 05:21 RBC 4.07 M/mm3 (3.65-5.03) 06/26/17 05:21 Hgb 9.7 gm/dl (10.1-14.3) L 06/26/17 05:21 POC Hgb 14.3 (12-17) 06/04/17 16:22 Hct 31.1 % (30.3-42.9) 06/26/17 05:21 POC Hct 42 (38-51) 06/04/17 16:22 MCV 76 fl (79-97) L 06/26/17 05:21 MCH 24 pg (28-32) L 06/26/17 05:21 MCHC 31 % (30-34) 06/26/17 05:21 RDW 18.4 % (13.2-15.2) H 06/26/17 05:21 Plt Count 300 K/mm3 (140-440) 06/26/17 05:21 [place] % (Auto) 11.2 % (0.0-7.3) H 06/16/17 08:45 Eos % (Auto) 1.4 % (0.0-4.3) 06/16/17 08:45 [place] # 1.6 K/mm3 (0.0-0.8) H 06/16/17 08:45 Eos # 0.2 K/mm3 (0.0-0.4) 06/16/17 08:45 Baso # 0.1 K/mm3 (0.0-0.1) 06/16/17 08:45 Add Manual Diff Complete 06/16/17 08:45 Total Counted 100 06/16/17 08:45 Seg Neutrophils % 82.8 % (40.0-70.0) H 06/16/17 08:45 Seg Neuts % (Manual) 78.0 % (40.0-70.0) H 06/16/17 08:45 Band Neutrophils % 1.0 % 06/16/17 08:45 Lymphocytes % (Manual) 3.0 % (13.4-35.0) L 06/16/17 08:45 Reactive Lymphs % (Man) 0 % 06/16/17 08:45 Monocytes % (Manual) 9.0 % (0.0-7.3) H 06/16/17 08:45 Eosinophils % (Manual) 2.0 % (0.0-4.3) 06/16/17 08:45 Basophils % (Manual) 1.0 % (0.0-1.8) 06/16/17 08:45 Metamyelocytes % 6.0 % 06/16/17 08:45 Myelocytes % 0 % 06/16/17 08:45 Promyelocytes % 0 % 06/16/17 08:45 Blast Cells % 0 % 06/16/17 08:45 Nucleated RBC % 1.0 % (0.0-0.9) H 06/16/17 08:45 Seg Neutrophils # 12.2 K/mm3 (1.8-7.7) H 06/16/17 08:45 Seg Neutrophils # Man 17.1 K/mm3 (1.8-7.7) H 06/16/17 08:45 Band Neutrophils # 0.2 K/mm3 06/16/17 08:45 Lymphocytes # (Manual) 0.7 K/mm3 (1.2-5.4) L 06/16/17 08:45 Abs React Lymphs (Man) 0.0 K/mm3 06/16/17 08:45 Monocytes # (Manual) 2.0 K/mm3 (0.0-0.8) H 06/16/17 08:45 Eosinophils # (Manual) 0.4 K/mm3 (0.0-0.4) 06/16/17 08:45 Basophils # (Manual) 0.2 K/mm3 (0.0-0.1) H 06/16/17 08:45 Metamyelocytes # 1.3 K/mm3 06/16/17 08:45 Myelocytes # 0.0 K/mm3 06/16/17 08:45 Promyelocytes # 0.0 K/mm3 06/16/17 08:45 Blast Cells # 0.0 K/mm3 06/16/17 08:45 WBC Morphology Not Reportable 06/16/17 08:45 Hypersegmented Neuts Not Reportable 06/16/17 08:45 Hyposegmented Neuts Not Reportable 06/16/17 08:45 Hypogranular Neuts Not Reportable 06/16/17 08:45 Smudge Cells Not Reportable 06/16/17 08:45 Toxic Granulation Not Reportable 06/16/17 08:45 Toxic Vacuolation Not Reportable 06/16/17 08:45 Dohle Bodies Not Reportable 06/16/17 08:45 Pelger-Huet Anomaly Not Reportable 06/16/17 08:45 Sunita Rods Not Reportable 06/16/17 08:45 Platelet Estimate Cons 06/16/17 08:45 Clumped Platelets Not Reportable 06/16/17 08:45 Plt Clumps, EDTA Not Reportable 06/16/17 08:45 Large Platelets Not Reportable 06/16/17 08:45 Giant Platelets Not Reportable 06/16/17 08:45 Platelet Satelliting Not Reportable 06/16/17 08:45 Plt Morphology Comment Not Reportable 06/16/17 08:45 RBC Morphology Not Reportable 06/16/17 08:45 Dimorphic RBCs Not Reportable 06/16/17 08:45 Polychromasia Not Reportable 06/16/17 08:45 Hypochromasia 2+ 06/16/17 08:45 Poikilocytosis Not Reportable 06/16/17 08:45 Anisocytosis Not Reportable 06/16/17 08:45 Microcytosis 1+ 06/16/17 08:45 Macrocytosis Not Reportable 06/16/17 08:45 Spherocytes Not Reportable 06/16/17 08:45 Pappenheimer Bodies Not Reportable 06/16/17 08:45 Sickle Cells Not Reportable 06/16/17 08:45 Target Cells Not Reportable 06/16/17 08:45 Tear Drop Cells Few 06/16/17 08:45 Ovalocytes Not Reportable 06/16/17 08:45 Helmet Cells Not Reportable 06/16/17 08:45 [place] Bodies Not Reportable 06/16/17 08:45 [place] Rings Not Reportable 06/16/17 08:45 [place] Cells Not Reportable 06/16/17 08:45 Bite Cells Not Reportable 06/16/17 08:45 Crenated Cell Not Reportable 06/16/17 08:45 Elliptocytes Not Reportable 06/16/17 08:45 Acanthocytes (Spur) Not Reportable 06/16/17 08:45 Rouleaux Not Reportable 06/16/17 08:45 Hemoglobin C Crystals Not Reportable 06/16/17 08:45 Schistocytes Few 06/16/17 08:45 Malaria parasites Not Reportable 06/16/17 08:45 Williams Bodies Not Reportable 06/16/17 08:45 Hem Pathologist Commnt No 06/16/17 08:45 PT 15.2 Sec. (12.2-14.9) H 06/21/17 05:45 INR 1.14 (0.87-1.13) H 06/21/17 05:45 APTT 29.9 Sec. (24.2-36.6) 06/09/17 16:55 POC ABG pH 7.441 (7.35-7.45) 06/24/17 13:15 ABG pH 7.438 pH Units (7.350-7.450) 06/22/17 05:00 POC ABG pCO2 43.9 (35-45) 06/24/17 13:15 ABG pCO2 42.6 mm Hg 06/22/17 05:00 POC ABG pO2 101 (80-105) 06/24/17 13:15 ABG pO2 110.7 mm Hg (80.0-90.0) H 06/22/17 05:00 POC ABG HCO3 29.9 06/24/17 13:15 ABG HCO3 28.2 mmol/L (20.0-26.0) H 06/22/17 05:00 POC ABG Total CO2 31 06/24/17 13:15 POC ABG O2 Sat 98 06/24/17 13:15 ABG O2 Saturation 98.1 % (95.0-99.0) 06/22/17 05:00 ABG O2 Content 12.3 (0.0-44) 06/22/17 05:00 POC ABG Base Excess 6 06/24/17 13:15 ABG Base Excess 3.7 mmol/L (-2.0-3.0) H 06/22/17 05:00 ABG Hemoglobin 8.9 gm/dl (12.0-16.0) L 06/22/17 05:00 ABG Carboxyhemoglobin 1.7 % (0.0-5.0) 06/22/17 05:00 ABG Methemoglobin 0.3 % (0.0-1.5) 06/22/17 05:00 Oxyhemoglobin 96.1 % (95.0-99.0) 06/22/17 05:00 POC Sodium 137 mmol/L (138-146) L 06/04/17 16:22 POC Potassium 5.3 (3.5-4.9) H 06/04/17 16:22 POC Chloride 102 (98-109) 06/04/17 16:22 FiO2 30 % 06/24/17 13:15 Sodium 139 mmol/L (137-145) 06/26/17 05:21 Potassium 3.2 mmol/L (3.6-5.0) L 06/26/17 05:21 Chloride 95.5 mmol/L (98-107) L 06/26/17 05:21 Carbon Dioxide 28 mmol/L (22-30) 06/26/17 05:21 Anion Gap 19 mmol/L 06/26/17 05:21 POC BUN 45 mg/dl (8-26) H 06/04/17 16:22 BUN 19 mg/dL (7-17) H 06/26/17 05:21 Creatinine 4.2 mg/dL (0.7-1.2) H 06/26/17 05:21 Estimated GFR 13 ml/min 06/26/17 05:21 BUN/Creatinine Ratio 5 % 06/26/17 05:21 Glucose 127 mg/dL (65-100) H 06/26/17 05:21 POC Glucose 93 (70-105) 06/25/17 17:17 Osmolality 312 Mosm/kg 06/14/17 09:25 Calcium 9.2 mg/dL (8.4-10.2) 06/26/17 05:21 Phosphorus 4.40 mg/dL (2.5-4.5) D 06/25/17 03:37 Magnesium 1.90 mg/dL (1.7-2.3) 06/16/17 11:00 Total Bilirubin 0.40 mg/dL (0.1-1.2) 06/18/17 08:10 AST 14 units/L (5-40) 06/18/17 08:10 ALT 6 units/L (7-56) L 06/18/17 08:10 Alkaline Phosphatase 92 units/L (35-129) 06/18/17 08:10 C-Reactive Protein 13.60 mg/dL (0.00-1.30) H 06/21/17 08:28 Total Protein 5.9 g/dL (6.3-8.2) L 06/18/17 08:10 Albumin 2.8 g/dL (3.9-5) L 06/18/17 08:10 Albumin/Globulin Ratio 0.9 % 06/18/17 08:10 Triglycerides 132 mg/dL (2-149) 06/09/17 11:49 Cholesterol 171 mg/dL (50-199) 06/09/17 11:49 LDL Cholesterol Direct 95 mg/dL (50-130) 06/09/17 11:49 HDL Cholesterol 50 mg/dL (40-59) 06/09/17 11:49 Cholesterol/HDL Ratio 3.42 % 06/09/17 11:49 PTH Intact 40.84 pg/mL (15-65) 06/23/17 21:09 PTH Pre-Incision 641.9 (11.1-79.5) H 06/04/17 13:55 PTH Post-Excision 154.7 (11.1-79.5) H 06/04/17 13:55 PTH Intact Intraop 5 m Not Reportable 06/04/17 13:55 Random Vancomycin 17.4 ug/mL (0-40.0) 06/21/17 05:45 Miscellaneous Test Flexitest 1 H 06/21/17 08:28 Blood Type O POSITIVE 06/21/17 05:30 Antibody Screen TNR 06/21/17 05:30 JOHN Antibody Screen Negative 06/21/17 05:30
[2017-06-26 09:51] LABS: Phosphorous 2.1 mg/dL (2.5-4.5)
--- NOTE | 2017-06-26 10:11 | Progress Note ---
Assessment and Plan - Patient Problems (1) Acute respiratory failure Current Visit: Yes Status: Acute Qualifiers: Respiratory failure complication: R (2) DVT prophylaxis Current Visit: Yes Status: Acute (3) HTN (hypertension) Current Visit: Yes Status: Acute Qualifiers: Hypertension type: H (4) Hypercalcemia Current Visit: Yes Status: Acute (5) Hyperparathyroidism Current Visit: Yes Status: Acute (6) Stroke Onset Date: ~06/08/17 Current Visit: Yes Status: Acute Qualifiers: CVA mechanism: unspecified Precerebral and cerebral artery: P Laterality of affected vessel: L Qualified Code(s): I63.9 - Cerebral infarction, unspecified (7) ESRD (end stage renal disease) on dialysis Current Visit: Yes Status: Chronic Subjective Principal diagnosis: ARM/MV/Post hyperparathy./ESRD Interval history: son at bedside Pt on t piece. off vent Objective Vital Signs - 12hr 06/25/17 06/25/17 06/26/17 23:00 23:41 00:00 Temperature Pulse Rate 89 91 H 96 H Respiratory 23 25 H 23 Rate Blood Pressure 90/56 101/51 103/49 O2 Sat by Pulse 97 99 94 Oximetry O2 Sat by Pulse Oximetry [ Assessment] 06/26/17 06/26/17 06/26/17 00:06 01:00 02:00 Temperature 98.0 F Pulse Rate 90 89 Respiratory 23 24 25 H Rate Blood Pressure 90/56 92/52 103/54 O2 Sat by Pulse 97 98 100 Oximetry O2 Sat by Pulse Oximetry [ Assessment] 06/26/17 06/26/17 06/26/17 03:00 04:00 04:45 Temperature 98.3 F Pulse Rate 91 H 90 79 Respiratory 23 21 Rate Blood Pressure 103/51 96/54 140/60 O2 Sat by Pulse 98 99 95 Oximetry O2 Sat by Pulse Oximetry [ Assessment] 06/26/17 06/26/17 06/26/17 05:00 06:01 07:00 Temperature Pulse Rate 95 H 92 H 79 Respiratory 19 25 H 19 Rate Blood Pressure 90/42 90/42 140/60 O2 Sat by Pulse 98 96 99 Oximetry O2 Sat by Pulse Oximetry [ Assessment] 06/26/17 06/26/17 06/26/17 07:40 07:42 08:00 Temperature 98.8 F Pulse Rate 83 Respiratory 22 Rate Blood Pressure 138/54 O2 Sat by Pulse 95 98 Oximetry O2 Sat by Pulse 96 Oximetry [ Assessment] Constitutional: no acute distress, alert Eyes: non-icteric ENT: other (orally intubated) Neck: supple, no JVD, other (tracheotomy and position, no bleeding) Effort: normal Ascultation: Bilateral: diminished breath sounds, rales, other (coarse BS bilaterally) Percussion: Bilateral: not dull Cardiovascular: regular rate and rhythm Gastrointestinal: normoactive bowel sounds, soft, non-tender, non-distended, other (obese, ) Integumentary: normal Extremities: no cyanosis, no edema, pink and warm, edema Neurologic: other (open eyes spontaneously but not fully oriented, maybe a facet. Right hemiparesis,GCS 5-6, ) Psychiatric: mood appropriate, affect normal CBC and BMP: 06/26/17 05:21 06/26/17 05:21 ABG, PT/INR, D-dimer: ABG POC ABG pH 7.441 (7.35-7.45) 06/24/17 13:15 ABG pH 7.438 pH Units (7.350-7.450) 06/22/17 05:00 POC ABG pCO2 43.9 (35-45) 06/24/17 13:15 ABG pCO2 42.6 mm Hg 06/22/17 05:00 POC ABG pO2 101 (80-105) 06/24/17 13:15 ABG pO2 110.7 mm Hg (80.0-90.0) H 06/22/17 05:00 POC ABG HCO3 29.9 06/24/17 13:15 POC ABG Total CO2 31 06/24/17 13:15 POC ABG O2 Sat 98 06/24/17 13:15 ABG O2 Saturation 98.1 % (95.0-99.0) 06/22/17 05:00 PT/INR, D-dimer PT 15.2 Sec. (12.2-14.9) H 06/21/17 05:45 INR 1.14 (0.87-1.13) H 06/21/17 05:45 Abnormal lab findings: Abnormal Labs 06/04/17 06/04/17 06/04/17 00:01 12:50 13:55 WBC 11.4 H RBC Hgb Hct POC Hct MCV 76 L MCH 23 L RDW 18.5 H [place] % (Auto) [place] # Seg Neutrophils % Seg Neuts % (Manual) 89.0 H Lymphocytes % (Manual) 6.0 L Monocytes % (Manual) Nucleated RBC % Seg Neutrophils # Seg Neutrophils # Man 10.1 H Lymphocytes # (Manual) 0.7 L Monocytes # (Manual) Eosinophils # (Manual) Basophils # (Manual) PT INR POC ABG pH ABG pH POC ABG pCO2 POC ABG pO2 ABG pO2 ABG HCO3 ABG O2 Saturation ABG Base Excess ABG Hemoglobin POC Sodium POC Potassium Sodium Potassium 5.1 H 5.2 H Chloride Carbon Dioxide POC BUN BUN 48 H Creatinine 6.2 H Glucose POC Glucose Calcium Phosphorus ALT C-Reactive Protein Total Protein Albumin PTH Pre-Incision PTH Post-Excision Miscellaneous Test 06/04/17 06/04/17 06/04/17 13:55 16:10 16:16 WBC RBC Hgb Hct POC Hct 37 L MCV MCH RDW [place] % (Auto) [place] # Seg Neutrophils % Seg Neuts % (Manual) Lymphocytes % (Manual) Monocytes % (Manual) Nucleated RBC % Seg Neutrophils # Seg Neutrophils # Man Lymphocytes # (Manual) Monocytes # (Manual) Eosinophils # (Manual) Basophils # (Manual) PT INR POC ABG pH 7.306 L ABG pH POC ABG pCO2 58.7 H POC ABG pO2 338 H ABG pO2 ABG HCO3 ABG O2 Saturation ABG Base Excess ABG Hemoglobin POC Sodium 135 L POC Potassium 5.2 H Sodium Potassium Chloride Carbon Dioxide POC BUN 44 H BUN Creatinine Glucose POC Glucose 183 H Calcium Phosphorus ALT C-Reactive Protein Total Protein Albumin PTH Pre-Incision 641.9 H PTH Post-Excision 154.7 H Miscellaneous Test 06/04/17 06/04/17 06/04/17 16:22 20:44 21:29 WBC RBC Hgb Hct POC Hct MCV MCH RDW [place] % (Auto) [place] # Seg Neutrophils % Seg Neuts % (Manual) Lymphocytes % (Manual) Monocytes % (Manual) Nucleated RBC % Seg Neutrophils # Seg Neutrophils # Man Lymphocytes # (Manual) Monocytes # (Manual) Eosinophils # (Manual) Basophils # (Manual) PT INR POC ABG pH 7.484 H ABG pH POC ABG pCO2 POC ABG pO2 ABG pO2 ABG HCO3 ABG O2 Saturation ABG Base Excess ABG Hemoglobin POC Sodium 137 L POC Potassium 5.3 H Sodium Potassium 5.2 H Chloride Carbon Dioxide POC BUN 45 H BUN 51 H Creatinine 6.5 H Glucose 119 H POC Glucose 176 H Calcium Phosphorus ALT C-Reactive Protein Total Protein Albumin PTH Pre-Incision PTH Post-Excision Miscellaneous Test 06/05/17 06/05/17 06/05/17 03:31 11:44 11:44 WBC 13.4 H RBC Hgb Hct POC Hct MCV 75 L MCH 23 L RDW 18.2 H [place] % (Auto) [place] # Seg Neutrophils % Seg Neuts % (Manual) Lymphocytes % (Manual) Monocytes % (Manual) Nucleated RBC % Seg Neutrophils # Seg Neutrophils # Man Lymphocytes # (Manual) Monocytes # (Manual) Eosinophils # (Manual) Basophils # (Manual) PT INR POC ABG pH ABG pH POC ABG pCO2 POC ABG pO2 75 L ABG pO2 ABG HCO3 ABG O2 Saturation ABG Base Excess ABG Hemoglobin POC Sodium POC Potassium Sodium Potassium 5.8 H Chloride Carbon Dioxide POC BUN BUN 56 H Creatinine 7.0 H Glucose 111 H POC Glucose Calcium 8.2 L Phosphorus ALT C-Reactive Protein Total Protein 6.2 L Albumin 3.1 L PTH Pre-Incision PTH Post-Excision Miscellaneous Test 06/06/17 06/06/17 06/07/17 05:07 07:13 03:53 WBC RBC Hgb Hct POC Hct MCV MCH RDW [place] % (Auto) [place] # Seg Neutrophils % Seg Neuts % (Manual) Lymphocytes % (Manual) Monocytes % (Manual) Nucleated RBC % Seg Neutrophils # Seg Neutrophils # Man Lymphocytes # (Manual) Monocytes # (Manual) Eosinophils # (Manual) Basophils # (Manual) PT INR POC ABG pH ABG pH POC ABG pCO2 POC ABG pO2 116 H 137 H ABG pO2 ABG HCO3 ABG O2 Saturation ABG Base Excess ABG Hemoglobin POC Sodium POC Potassium Sodium Potassium Chloride Carbon Dioxide POC BUN BUN 32 H Creatinine 4.9 H Glucose 115 H POC Glucose Calcium 7.9 L Phosphorus ALT C-Reactive Protein Total Protein 5.7 L Albumin 3.3 L PTH Pre-Incision PTH Post-Excision Miscellaneous Test 06/07/17 06/07/17 06/07/17 05:21 05:21 16:54 WBC RBC Hgb Hct POC Hct MCV 75 L MCH 24 L RDW 18.7 H [place] % (Auto) [place] # Seg Neutrophils % Seg Neuts % (Manual) Lymphocytes % (Manual) Monocytes % (Manual) Nucleated RBC % Seg Neutrophils # Seg Neutrophils # Man Lymphocytes # (Manual) Monocytes # (Manual) Eosinophils # (Manual) Basophils # (Manual) PT INR POC ABG pH ABG pH POC ABG pCO2 POC ABG pO2 ABG pO2 ABG HCO3 ABG O2 Saturation ABG Base Excess ABG Hemoglobin POC Sodium POC Potassium Sodium Potassium 5.4 H Chloride Carbon Dioxide POC BUN BUN 52 H Creatinine 6.2 H Glucose 107 H POC Glucose 110 H Calcium 8.0 L Phosphorus ALT C-Reactive Protein Total Protein Albumin PTH Pre-Incision PTH Post-Excision Miscellaneous Test 06/07/17 06/07/17 06/08/17 17:38 23:32 04:00 WBC RBC Hgb Hct POC Hct MCV 77 L MCH 23 L RDW 18.3 H [place] % (Auto) [place] # Seg Neutrophils % Seg Neuts % (Manual) 78.0 H Lymphocytes % (Manual) Monocytes % (Manual) Nucleated RBC % 3.0 H Seg Neutrophils # Seg Neutrophils # Man 7.8 H Lymphocytes # (Manual) Monocytes # (Manual) Eosinophils # (Manual) Basophils # (Manual) PT INR POC ABG pH 7.310 L ABG pH POC ABG pCO2 51.9 H POC ABG pO2 ABG pO2 ABG HCO3 ABG O2 Saturation ABG Base Excess ABG Hemoglobin POC Sodium POC Potassium Sodium Potassium Chloride Carbon Dioxide POC BUN BUN Creatinine Glucose POC Glucose 63 L Calcium Phosphorus ALT C-Reactive Protein Total Protein Albumin PTH Pre-Incision PTH Post-Excision Miscellaneous Test 06/08/17 06/08/17 06/08/17 04:00 10:51 11:25 WBC RBC Hgb Hct POC Hct MCV MCH RDW [place] % (Auto) [place] # Seg Neutrophils % Seg Neuts % (Manual) Lymphocytes % (Manual) Monocytes % (Manual) Nucleated RBC % Seg Neutrophils # Seg Neutrophils # Man Lymphocytes # (Manual) Monocytes # (Manual) Eosinophils # (Manual) Basophils # (Manual) PT INR POC ABG pH 7.336 L ABG pH POC ABG pCO2 55.1 H POC ABG pO2 ABG pO2 ABG HCO3 ABG O2 Saturation ABG Base Excess ABG Hemoglobin POC Sodium POC Potassium Sodium Potassium Chloride 96.9 L Carbon Dioxide POC BUN BUN 29 H Creatinine 4.6 H Glucose POC Glucose 108 H Calcium 8.3 L Phosphorus ALT C-Reactive Protein Total Protein Albumin PTH Pre-Incision PTH Post-Excision Miscellaneous Test 06/08/17 06/09/17 06/09/17 14:22 11:42 11:42 WBC RBC Hgb Hct POC Hct MCV 76 L MCH 24 L RDW 18.3 H [place] % (Auto) [place] # Seg Neutrophils % Seg Neuts % (Manual) 80.0 H Lymphocytes % (Manual) 10.0 L Monocytes % (Manual) Nucleated RBC % 2.0 H Seg Neutrophils # Seg Neutrophils # Man Lymphocytes # (Manual) 1.0 L Monocytes # (Manual) Eosinophils # (Manual) Basophils # (Manual) PT INR POC ABG pH ABG pH POC ABG pCO2 52.8 H POC ABG pO2 77 L ABG pO2 ABG HCO3 ABG O2 Saturation ABG Base Excess ABG Hemoglobin POC Sodium POC Potassium Sodium Potassium 5.4 H D Chloride 97.1 L Carbon Dioxide POC BUN BUN 58 H Creatinine 6.6 H Glucose POC Glucose Calcium 7.2 L Phosphorus ALT C-Reactive Protein Total Protein Albumin PTH Pre-Incision PTH Post-Excision Miscellaneous Test 06/09/17 06/10/17 06/10/17 12:04 03:29 03:29 WBC 13.7 H RBC Hgb Hct POC Hct MCV 77 L MCH 24 L RDW 17.9 H [place] % (Auto) [place] # Seg Neutrophils % Seg Neuts % (Manual) 82.0 H Lymphocytes % (Manual) 7.0 L Monocytes % (Manual) Nucleated RBC % 6.0 H Seg Neutrophils # Seg Neutrophils # Man 11.2 H Lymphocytes # (Manual) 1.0 L Monocytes # (Manual) Eosinophils # (Manual) Basophils # (Manual) PT INR POC ABG pH ABG pH POC ABG pCO2 POC ABG pO2 ABG pO2 ABG HCO3 ABG O2 Saturation ABG Base Excess ABG Hemoglobin POC Sodium POC Potassium Sodium Potassium Chloride 94.2 L Carbon Dioxide POC BUN BUN 32 H Creatinine 4.6 H Glucose 106 H POC Glucose 106 H Calcium 8.0 L Phosphorus ALT C-Reactive Protein Total Protein Albumin PTH Pre-Incision PTH Post-Excision Miscellaneous Test 06/10/17 06/11/17 06/11/17 05:27 06:00 06:00 WBC 11.8 H RBC Hgb Hct POC Hct MCV 77 L MCH 24 L RDW 18.3 H [place] % (Auto) [place] # Seg Neutrophils % Seg Neuts % (Manual) 88.0 H Lymphocytes % (Manual) 7.0 L Monocytes % (Manual) Nucleated RBC % 1.0 H Seg Neutrophils # Seg Neutrophils # Man 10.4 H Lymphocytes # (Manual) 0.8 L Monocytes # (Manual) Eosinophils # (Manual) Basophils # (Manual) PT INR POC ABG pH ABG pH POC ABG pCO2 POC ABG pO2 ABG pO2 ABG HCO3 ABG O2 Saturation ABG Base Excess ABG Hemoglobin POC Sodium POC Potassium Sodium Potassium Chloride Carbon Dioxide POC BUN BUN 53 H Creatinine 6.0 H Glucose POC Glucose 106 H Calcium 6.3 L D Phosphorus ALT C-Reactive Protein Total Protein Albumin PTH Pre-Incision PTH Post-Excision Miscellaneous Test 06/11/17 06/11/17 06/11/17 06:51 12:10 16:54 WBC RBC Hgb Hct POC Hct MCV MCH RDW [place] % (Auto) [place] # Seg Neutrophils % Seg Neuts % (Manual) Lymphocytes % (Manual) Monocytes % (Manual) Nucleated RBC % Seg Neutrophils # Seg Neutrophils # Man Lymphocytes # (Manual) Monocytes # (Manual) Eosinophils # (Manual) Basophils # (Manual) PT INR POC ABG pH 7.556 H ABG pH POC ABG pCO2 34.8 L POC ABG pO2 125 H ABG pO2 ABG HCO3 ABG O2 Saturation ABG Base Excess ABG Hemoglobin POC Sodium POC Potassium Sodium Potassium Chloride Carbon Dioxide POC BUN BUN Creatinine Glucose POC Glucose 115 H 106 H Calcium Phosphorus ALT C-Reactive Protein Total Protein Albumin PTH Pre-Incision PTH Post-Excision Miscellaneous Test 06/11/17 06/12/17 06/12/17 20:20 00:06 04:20 WBC RBC Hgb Hct POC Hct MCV MCH RDW [place] % (Auto) [place] # Seg Neutrophils % Seg Neuts % (Manual) Lymphocytes % (Manual) Monocytes % (Manual) Nucleated RBC % Seg Neutrophils # Seg Neutrophils # Man Lymphocytes # (Manual) Monocytes # (Manual) Eosinophils # (Manual) Basophils # (Manual) PT INR POC ABG pH ABG pH 7.512 H 7.514 H POC ABG pCO2 POC ABG pO2 ABG pO2 148.5 H 209.1 H ABG HCO3 ABG O2 Saturation 99.3 H ABG Base Excess ABG Hemoglobin POC Sodium POC Potassium Sodium Potassium Chloride Carbon Dioxide POC BUN BUN Creatinine Glucose POC Glucose 108 H Calcium Phosphorus ALT C-Reactive Protein Total Protein Albumin PTH Pre-Incision PTH Post-Excision Miscellaneous Test 06/12/17 06/12/17 06/12/17 05:24 05:30 05:30 WBC 14.3 H RBC Hgb Hct POC Hct MCV 75 L MCH 24 L RDW 18.5 H [place] % (Auto) [place] # Seg Neutrophils % Seg Neuts % (Manual) 73.0 H Lymphocytes % (Manual) 6.0 L Monocytes % (Manual) 9.0 H Nucleated RBC % 1.0 H Seg Neutrophils # Seg Neutrophils # Man 10.4 H Lymphocytes # (Manual) 0.9 L Monocytes # (Manual) 1.3 H Eosinophils # (Manual) Basophils # (Manual) PT INR POC ABG pH ABG pH POC ABG pCO2 POC ABG pO2 ABG pO2 ABG HCO3 ABG O2 Saturation ABG Base Excess ABG Hemoglobin POC Sodium POC Potassium Sodium 131 L D Potassium Chloride 90.6 L Carbon Dioxide POC BUN BUN 51 H Creatinine 6.5 H Glucose POC Glucose 109 H Calcium Phosphorus ALT C-Reactive Protein Total Protein Albumin PTH Pre-Incision PTH Post-Excision Miscellaneous Test 06/12/17 06/13/17 06/13/17 11:46 04:15 04:55 WBC 17.9 H RBC Hgb Hct POC Hct MCV 75 L MCH 24 L RDW 18.5 H [place] % (Auto) [place] # Seg Neutrophils % Seg Neuts % (Manual) 75.0 H Lymphocytes % (Manual) 6.0 L Monocytes % (Manual) 9.0 H Nucleated RBC % Seg Neutrophils # Seg Neutrophils # Man 13.4 H Lymphocytes # (Manual) 1.1 L Monocytes # (Manual) 1.6 H Eosinophils # (Manual) 0.5 H Basophils # (Manual) 0.2 H PT INR POC ABG pH ABG pH POC ABG pCO2 POC ABG pO2 ABG pO2 131.0 H ABG HCO3 ABG O2 Saturation ABG Base Excess ABG Hemoglobin 10.5 L POC Sodium POC Potassium Sodium Potassium Chloride Carbon Dioxide POC BUN BUN Creatinine Glucose POC Glucose 116 H Calcium Phosphorus ALT C-Reactive Protein Total Protein Albumin PTH Pre-Incision PTH Post-Excision Miscellaneous Test 06/13/17 06/13/17 06/14/17 04:55 17:23 04:30 WBC 17.8 H RBC Hgb 9.7 L Hct POC Hct MCV 76 L MCH 24 L RDW 18.3 H [place] % (Auto) [place] # Seg Neutrophils % Seg Neuts % (Manual) 74.0 H Lymphocytes % (Manual) 6.0 L Monocytes % (Manual) 9.0 H Nucleated RBC % Seg Neutrophils # Seg Neutrophils # Man 13.2 H Lymphocytes # (Manual) 1.1 L Monocytes # (Manual) 1.6 H Eosinophils # (Manual) Basophils # (Manual) PT INR POC ABG pH ABG pH POC ABG pCO2 POC ABG pO2 ABG pO2 ABG HCO3 ABG O2 Saturation ABG Base Excess ABG Hemoglobin POC Sodium POC Potassium Sodium 128 L Potassium Chloride 88.9 L Carbon Dioxide POC BUN BUN 73 H Creatinine 7.6 H Glucose 115 H POC Glucose 113 H Calcium 8.1 L Phosphorus ALT C-Reactive Protein Total Protein Albumin PTH Pre-Incision PTH Post-Excision Miscellaneous Test 06/14/17 06/14/17 06/14/17 04:30 05:30 05:49 WBC RBC Hgb Hct POC Hct MCV MCH RDW [place] % (Auto) [place] # Seg Neutrophils % Seg Neuts % (Manual) Lymphocytes % (Manual) Monocytes % (Manual) Nucleated RBC % Seg Neutrophils # Seg Neutrophils # Man Lymphocytes # (Manual) Monocytes # (Manual) Eosinophils # (Manual) Basophils # (Manual) PT INR POC ABG pH ABG pH POC ABG pCO2 POC ABG pO2 ABG pO2 109.3 H ABG HCO3 ABG O2 Saturation ABG Base Excess ABG Hemoglobin 10.7 L POC Sodium POC Potassium Sodium 124 L Potassium Chloride 84.3 L Carbon Dioxide POC BUN BUN 86 H Creatinine 9.0 H Glucose 106 H POC Glucose 111 H Calcium 8.1 L Phosphorus ALT C-Reactive Protein Total Protein Albumin PTH Pre-Incision PTH Post-Excision Miscellaneous Test 06/14/17 06/14/17 06/14/17 12:27 16:05 23:35 WBC RBC Hgb Hct POC Hct MCV MCH RDW [place] % (Auto) [place] # Seg Neutrophils % Seg Neuts % (Manual) Lymphocytes % (Manual) Monocytes % (Manual) Nucleated RBC % Seg Neutrophils # Seg Neutrophils # Man Lymphocytes # (Manual) Monocytes # (Manual) Eosinophils # (Manual) Basophils # (Manual) PT INR POC ABG pH ABG pH POC ABG pCO2 POC ABG pO2 ABG pO2 ABG HCO3 ABG O2 Saturation ABG Base Excess ABG Hemoglobin POC Sodium POC Potassium Sodium Potassium Chloride Carbon Dioxide POC BUN BUN Creatinine Glucose POC Glucose 139 H 133 H 147 H Calcium Phosphorus ALT C-Reactive Protein Total Protein Albumin PTH Pre-Incision PTH Post-Excision Miscellaneous Test 06/15/17 06/15/17 06/15/17 05:05 06:00 06:00 WBC 21.4 H RBC Hgb 9.2 L Hct POC Hct MCV 77 L MCH 23 L RDW 18.8 H [place] % (Auto) [place] # Seg Neutrophils % Seg Neuts % (Manual) 86.0 H Lymphocytes % (Manual) 2.0 L Monocytes % (Manual) Nucleated RBC % 1.0 H Seg Neutrophils # Seg Neutrophils # Man 18.4 H Lymphocytes # (Manual) 0.4 L Monocytes # (Manual) 1.5 H Eosinophils # (Manual) Basophils # (Manual) PT INR POC ABG pH ABG pH POC ABG pCO2 POC ABG pO2 ABG pO2 ABG HCO3 ABG O2 Saturation ABG Base Excess ABG Hemoglobin POC Sodium POC Potassium Sodium 132 L D Potassium Chloride 91.5 L Carbon Dioxide POC BUN BUN 59 H Creatinine 6.6 H Glucose 116 H POC Glucose 145 H Calcium Phosphorus ALT C-Reactive Protein Total Protein Albumin PTH Pre-Incision PTH Post-Excision Miscellaneous Test 06/15/17 06/15/17 06/15/17 12:04 17:55 23:40 WBC RBC Hgb Hct POC Hct MCV MCH RDW [place] % (Auto) [place] # Seg Neutrophils % Seg Neuts % (Manual) Lymphocytes % (Manual) Monocytes % (Manual) Nucleated RBC % Seg Neutrophils # Seg Neutrophils # Man Lymphocytes # (Manual) Monocytes # (Manual) Eosinophils # (Manual) Basophils # (Manual) PT INR POC ABG pH ABG pH POC ABG pCO2 POC ABG pO2 ABG pO2 ABG HCO3 ABG O2 Saturation ABG Base Excess ABG Hemoglobin POC Sodium POC Potassium Sodium Potassium Chloride Carbon Dioxide POC BUN BUN Creatinine Glucose POC Glucose 109 H 119 H 123 H Calcium Phosphorus ALT C-Reactive Protein Total Protein Albumin PTH Pre-Incision PTH Post-Excision Miscellaneous Test 06/15/17 06/16/17 06/16/17 Unknown 06:00 08:45 WBC 21.9 H RBC Hgb 8.9 L Hct 29.0 L POC Hct MCV 77 L MCH 24 L RDW 18.1 H [place] % (Auto) 11.2 H [place] # 1.6 H Seg Neutrophils % 82.8 H Seg Neuts % (Manual) 78.0 H Lymphocytes % (Manual) 3.0 L Monocytes % (Manual) 9.0 H Nucleated RBC % 1.0 H Seg Neutrophils # 12.2 H Seg Neutrophils # Man 17.1 H Lymphocytes # (Manual) 0.7 L Monocytes # (Manual) 2.0 H Eosinophils # (Manual) Basophils # (Manual) 0.2 H PT INR POC ABG pH ABG pH POC ABG pCO2 POC ABG pO2 ABG pO2 115.7 H ABG HCO3 27.6 H ABG O2 Saturation ABG Base Excess ABG Hemoglobin 9.2 L POC Sodium POC Potassium Sodium Potassium 2.7 L* D Chloride 111.6 H Carbon Dioxide 17 L D POC BUN BUN 52 H Creatinine 5.0 H Glucose POC Glucose Calcium 5.3 L* D Phosphorus ALT C-Reactive Protein Total Protein Albumin PTH Pre-Incision PTH Post-Excision Miscellaneous Test 06/16/17 06/16/17 06/16/17 09:25 11:00 12:07 WBC RBC Hgb Hct POC Hct MCV MCH RDW [place] % (Auto) [place] # Seg Neutrophils % Seg Neuts % (Manual) Lymphocytes % (Manual) Monocytes % (Manual) Nucleated RBC % Seg Neutrophils # Seg Neutrophils # Man Lymphocytes # (Manual) Monocytes # (Manual) Eosinophils # (Manual) Basophils # (Manual) PT INR POC ABG pH ABG pH POC ABG pCO2 POC ABG pO2 ABG pO2 102.0 H ABG HCO3 27.1 H ABG O2 Saturation ABG Base Excess ABG Hemoglobin 9.0 L POC Sodium POC Potassium Sodium Potassium Chloride 95.2 L Carbon Dioxide POC BUN BUN 60 H Creatinine 6.3 H Glucose 114 H POC Glucose 111 H Calcium 10.6 H D Phosphorus ALT C-Reactive Protein Total Protein Albumin PTH Pre-Incision PTH Post-Excision Miscellaneous Test 06/16/17 06/16/17 06/17/17 17:20 17:51 00:10 WBC RBC Hgb Hct POC Hct MCV MCH RDW [place] % (Auto) [place] # Seg Neutrophils % Seg Neuts % (Manual) Lymphocytes % (Manual) Monocytes % (Manual) Nucleated RBC % Seg Neutrophils # Seg Neutrophils # Man Lymphocytes # (Manual) Monocytes # (Manual) Eosinophils # (Manual) Basophils # (Manual) PT INR POC ABG pH ABG pH POC ABG pCO2 POC ABG pO2 ABG pO2 ABG HCO3 ABG O2 Saturation ABG Base Excess ABG Hemoglobin POC Sodium POC Potassium Sodium Potassium Chloride 97.4 L Carbon Dioxide POC BUN BUN 35 H Creatinine 4.4 H Glucose 116 H POC Glucose 128 H 114 H Calcium Phosphorus ALT C-Reactive Protein Total Protein Albumin PTH Pre-Incision PTH Post-Excision Miscellaneous Test 06/17/17 06/17/17 06/18/17 04:00 05:42 08:10 WBC 16.1 H RBC 3.55 L Hgb 8.4 L Hct 27.2 L POC Hct MCV 76 L MCH 24 L RDW 18.5 H [place] % (Auto) [place] # Seg Neutrophils % Seg Neuts % (Manual) Lymphocytes % (Manual) Monocytes % (Manual) Nucleated RBC % Seg Neutrophils # Seg Neutrophils # Man Lymphocytes # (Manual) Monocytes # (Manual) Eosinophils # (Manual) Basophils # (Manual) PT INR POC ABG pH ABG pH POC ABG pCO2 POC ABG pO2 ABG pO2 ABG HCO3 ABG O2 Saturation ABG Base Excess ABG Hemoglobin POC Sodium POC Potassium Sodium 136 L Potassium Chloride 94.5 L Carbon Dioxide POC BUN BUN 44 H Creatinine 5.3 H Glucose 107 H POC Glucose 110 H Calcium Phosphorus ALT C-Reactive Protein Total Protein Albumin PTH Pre-Incision PTH Post-Excision Miscellaneous Test 06/18/17 06/19/17 06/19/17 08:10 05:23 07:14 WBC 19.3 H RBC Hgb 9.2 L Hct 30.1 L POC Hct MCV 77 L MCH 23 L RDW 18.2 H [place] % (Auto) [place] # Seg Neutrophils % Seg Neuts % (Manual) Lymphocytes % (Manual) Monocytes % (Manual) Nucleated RBC % Seg Neutrophils # Seg Neutrophils # Man Lymphocytes # (Manual) Monocytes # (Manual) Eosinophils # (Manual) Basophils # (Manual) PT INR POC ABG pH ABG pH POC ABG pCO2 POC ABG pO2 ABG pO2 116.2 H ABG HCO3 28.5 H ABG O2 Saturation ABG Base Excess ABG Hemoglobin 9.1 L POC Sodium POC Potassium Sodium 134 L Potassium Chloride 91.6 L Carbon Dioxide POC BUN BUN 68 H Creatinine 7.2 H Glucose POC Glucose Calcium 10.3 H Phosphorus ALT 6 L C-Reactive Protein Total Protein 5.9 L Albumin 2.8 L PTH Pre-Incision PTH Post-Excision Miscellaneous Test 06/19/17 06/19/17 06/20/17 07:15 23:37 04:40 WBC RBC Hgb Hct POC Hct MCV MCH RDW [place] % (Auto) [place] # Seg Neutrophils % Seg Neuts % (Manual) Lymphocytes % (Manual) Monocytes % (Manual) Nucleated RBC % Seg Neutrophils # Seg Neutrophils # Man Lymphocytes # (Manual) Monocytes # (Manual) Eosinophils # (Manual) Basophils # (Manual) PT INR POC ABG pH ABG pH POC ABG pCO2 POC ABG pO2 ABG pO2 ABG HCO3 ABG O2 Saturation ABG Base Excess ABG Hemoglobin POC Sodium POC Potassium Sodium 135 L Potassium Chloride 94.3 L Carbon Dioxide POC BUN BUN 41 H Creatinine 5.4 H Glucose 117 H POC Glucose 152 H 140 H Calcium 10.3 H Phosphorus ALT C-Reactive Protein Total Protein Albumin PTH Pre-Incision PTH Post-Excision Miscellaneous Test 06/21/17 06/21/17 06/21/17 05:13 05:45 05:45 WBC 18.8 H RBC 3.54 L Hgb 8.2 L Hct 27.6 L POC Hct MCV 78 L MCH 23 L RDW 18.6 H [place] % (Auto) [place] # Seg Neutrophils % Seg Neuts % (Manual) Lymphocytes % (Manual) Monocytes % (Manual) Nucleated RBC % Seg Neutrophils # Seg Neutrophils # Man Lymphocytes # (Manual) Monocytes # (Manual) Eosinophils # (Manual) Basophils # (Manual) PT 15.2 H INR 1.14 H POC ABG pH ABG pH POC ABG pCO2 POC ABG pO2 ABG pO2 ABG HCO3 ABG O2 Saturation ABG Base Excess ABG Hemoglobin POC Sodium POC Potassium Sodium Potassium Chloride Carbon Dioxide POC BUN BUN Creatinine Glucose POC Glucose 140 H Calcium Phosphorus ALT C-Reactive Protein Total Protein Albumin PTH Pre-Incision PTH Post-Excision Miscellaneous Test 06/21/17 06/21/17 06/21/17 05:45 08:28 08:28 WBC RBC Hgb Hct POC Hct MCV MCH RDW [place] % (Auto) [place] # Seg Neutrophils % Seg Neuts % (Manual) Lymphocytes % (Manual) Monocytes % (Manual) Nucleated RBC % Seg Neutrophils # Seg Neutrophils # Man Lymphocytes # (Manual) Monocytes # (Manual) Eosinophils # (Manual) Basophils # (Manual) PT INR POC ABG pH ABG pH POC ABG pCO2 POC ABG pO2 ABG pO2 ABG HCO3 ABG O2 Saturation ABG Base Excess ABG Hemoglobin POC Sodium POC Potassium Sodium Potassium Chloride 95.5 L Carbon Dioxide POC BUN BUN 38 H Creatinine 4.8 H Glucose 126 H POC Glucose Calcium Phosphorus ALT C-Reactive Protein 13.60 H Total Protein Albumin PTH Pre-Incision PTH Post-Excision Miscellaneous Test Flexitest 1 H 06/21/17 06/22/17 06/22/17 23:21 04:53 05:00 WBC RBC Hgb Hct POC Hct MCV MCH RDW [place] % (Auto) [place] # Seg Neutrophils % Seg Neuts % (Manual) Lymphocytes % (Manual) Monocytes % (Manual) Nucleated RBC % Seg Neutrophils # Seg Neutrophils # Man Lymphocytes # (Manual) Monocytes # (Manual) Eosinophils # (Manual) Basophils # (Manual) PT INR POC ABG pH ABG pH POC ABG pCO2 POC ABG pO2 ABG pO2 110.7 H ABG HCO3 28.2 H ABG O2 Saturation ABG Base Excess 3.7 H ABG Hemoglobin 8.9 L POC Sodium POC Potassium Sodium Potassium Chloride Carbon Dioxide POC BUN BUN Creatinine Glucose POC Glucose 117 H 111 H Calcium Phosphorus ALT C-Reactive Protein Total Protein Albumin PTH Pre-Incision PTH Post-Excision Miscellaneous Test 06/22/17 06/22/17 06/22/17 11:49 11:59 11:59 WBC 15.4 H RBC Hgb 8.6 L Hct 28.4 L POC Hct MCV 77 L MCH 23 L RDW 18.4 H [place] % (Auto) [place] # Seg Neutrophils % Seg Neuts % (Manual) Lymphocytes % (Manual) Monocytes % (Manual) Nucleated RBC % Seg Neutrophils # Seg Neutrophils # Man Lymphocytes # (Manual) Monocytes # (Manual) Eosinophils # (Manual) Basophils # (Manual) PT INR POC ABG pH ABG pH POC ABG pCO2 POC ABG pO2 ABG pO2 ABG HCO3 ABG O2 Saturation ABG Base Excess ABG Hemoglobin POC Sodium POC Potassium Sodium Potassium Chloride Carbon Dioxide POC BUN BUN 25 H Creatinine 4.2 H Glucose 101 H POC Glucose 123 H Calcium Phosphorus ALT C-Reactive Protein Total Protein Albumin PTH Pre-Incision PTH Post-Excision Miscellaneous Test 06/23/17 06/23/17 06/23/17 02:49 02:49 04:45 WBC 12.1 H RBC 3.53 L Hgb 8.4 L Hct 27.2 L POC Hct MCV 77 L MCH 24 L RDW 18.5 H [place] % (Auto) [place] # Seg Neutrophils % Seg Neuts % (Manual) Lymphocytes % (Manual) Monocytes % (Manual) Nucleated RBC % Seg Neutrophils # Seg Neutrophils # Man Lymphocytes # (Manual) Monocytes # (Manual) Eosinophils # (Manual) Basophils # (Manual) PT INR POC ABG pH 7.530 H ABG pH POC ABG pCO2 34.7 L POC ABG pO2 136 H ABG pO2 ABG HCO3 ABG O2 Saturation ABG Base Excess ABG Hemoglobin POC Sodium POC Potassium Sodium Potassium Chloride Carbon Dioxide POC BUN BUN 36 H Creatinine 5.6 H Glucose POC Glucose Calcium Phosphorus ALT C-Reactive Protein Total Protein Albumin PTH Pre-Incision PTH Post-Excision Miscellaneous Test 06/23/17 06/23/17 06/24/17 19:16 21:09 05:02 WBC RBC Hgb Hct POC Hct MCV MCH RDW [place] % (Auto) [place] # Seg Neutrophils % Seg Neuts % (Manual) Lymphocytes % (Manual) Monocytes % (Manual) Nucleated RBC % Seg Neutrophils # Seg Neutrophils # Man Lymphocytes # (Manual) Monocytes # (Manual) Eosinophils # (Manual) Basophils # (Manual) PT INR POC ABG pH 7.511 H ABG pH POC ABG pCO2 POC ABG pO2 111 H ABG pO2 ABG HCO3 ABG O2 Saturation ABG Base Excess ABG Hemoglobin POC Sodium POC Potassium Sodium Potassium Chloride Carbon Dioxide POC BUN BUN Creatinine Glucose POC Glucose Calcium 10.8 H D Phosphorus 1.70 L 1.90 L ALT C-Reactive Protein Total Protein Albumin PTH Pre-Incision PTH Post-Excision Miscellaneous Test 06/24/17 06/24/17 06/24/17 05:04 05:04 05:29 WBC 14.0 H RBC Hgb 9.5 L Hct 29.9 L POC Hct MCV 77 L MCH 24 L RDW 18.4 H [place] % (Auto) [place] # Seg Neutrophils % Seg Neuts % (Manual) Lymphocytes % (Manual) Monocytes % (Manual) Nucleated RBC % Seg Neutrophils # Seg Neutrophils # Man Lymphocytes # (Manual) Monocytes # (Manual) Eosinophils # (Manual) Basophils # (Manual) PT INR POC ABG pH ABG pH POC ABG pCO2 POC ABG pO2 ABG pO2 ABG HCO3 ABG O2 Saturation ABG Base Excess ABG Hemoglobin POC Sodium POC Potassium Sodium Potassium Chloride 94.8 L Carbon Dioxide POC BUN BUN 26 H Creatinine 4.4 H Glucose 106 H POC Glucose 124 H Calcium 10.8 H Phosphorus ALT C-Reactive Protein Total Protein Albumin PTH Pre-Incision PTH Post-Excision Miscellaneous Test 06/25/17 06/25/17 06/25/17 03:37 03:37 11:47 WBC 13.4 H RBC Hgb 9.2 L Hct 29.5 L POC Hct MCV 77 L MCH 24 L RDW 19.0 H [place] % (Auto) [place] # Seg Neutrophils % Seg Neuts % (Manual) Lymphocytes % (Manual) Monocytes % (Manual) Nucleated RBC % Seg Neutrophils # Seg Neutrophils # Man Lymphocytes # (Manual) Monocytes # (Manual) Eosinophils # (Manual) Basophils # (Manual) PT INR POC ABG pH ABG pH POC ABG pCO2 POC ABG pO2 ABG pO2 ABG HCO3 ABG O2 Saturation ABG Base Excess ABG Hemoglobin POC Sodium POC Potassium Sodium 133 L Potassium 3.4 L Chloride 90.7 L Carbon Dioxide POC BUN BUN 40 H Creatinine 6.4 H Glucose POC Glucose 119 H Calcium Phosphorus ALT C-Reactive Protein Total Protein Albumin PTH Pre-Incision PTH Post-Excision Miscellaneous Test 06/26/17 06/26/17 06/26/17 05:21 05:21 05:21 WBC 13.1 H RBC Hgb 9.7 L Hct POC Hct MCV 76 L MCH 24 L RDW 18.4 H [place] % (Auto) [place] # Seg Neutrophils % Seg Neuts % (Manual) Lymphocytes % (Manual) Monocytes % (Manual) Nucleated RBC % Seg Neutrophils # Seg Neutrophils # Man Lymphocytes # (Manual) Monocytes # (Manual) Eosinophils # (Manual) Basophils # (Manual) PT INR POC ABG pH ABG pH POC ABG pCO2 POC ABG pO2 ABG pO2 ABG HCO3 ABG O2 Saturation ABG Base Excess ABG Hemoglobin POC Sodium POC Potassium Sodium Potassium 3.2 L Chloride 95.5 L Carbon Dioxide POC BUN BUN 19 H Creatinine 4.2 H Glucose 127 H POC Glucose Calcium Phosphorus 2.10 L D ALT C-Reactive Protein Total Protein Albumin PTH Pre-Incision PTH Post-Excision Miscellaneous Test
[2017-06-26] MEDS: ROCALTROL PO SCH ×2 (10:18→10:54)
[2017-06-26] MEDS: ROCEPHIN/NS 2 GM/100 ML 2 GM/100 ML BAG IV SCH (10:18)
[2017-06-26] MEDS ORDERED: KCL 10MEQ/100ML 10 MEQ/100 ML BAG IV ONE (10:33)
--- NOTE | 2017-06-26 10:35 | Progress Note ---
Assessment and Plan Impression: * ESRD * hypertension * s/p parathyroidectomy * Anemia in esrd * respiratory failure * Acute CVA * hypokalemia Plan: * hd q mwf * tums and calcitriol * iv calcium prn * increase k bath with hd, replete k and mag prn * cva workup in progress * uf as tolerated with hd * high calcium bath with hd * epogen with hd * strict i/os * follow up am darryl Subjective Date of service: 06/26/17 Principal diagnosis: ARM/MV/Post hyperparathy./ESRD Interval history: no new complaints Objective - Exam Narrative Exam: General appearance: Present: severe distress, obese - EENT Eyes: Present: PERRL ENT: hearing intact, clear oral mucosa - Neck Neck: Present: supple, normal ROM - Respiratory Respiratory effort: labored Respiratory: bilateral: diminished - Cardiovascular Heart Sounds: Present: S1 & S2. Absent: rub, click - Extremities Extremities: pulses symmetrical, No edema Extremity abnormal: edema Peripheral Pulses: within normal limits - Abdominal Female genitourinary: Present: normal - Integumentary Integumentary: Present: clear, warm, dry - Musculoskeletal Musculoskeletal: generalized weakness - Psychiatric Psychiatric: no intact judgment & insight, no memory intact, agitated - Neurologic Neurologic: CNII-XII intact, moves all extremities - Vital Signs Vital signs: Vital Signs - 12hr 06/25/17 06/25/17 06/26/17 23:00 23:41 00:00 Temperature Pulse Rate 89 91 H 96 H Respiratory 23 25 H 23 Rate Blood Pressure 90/56 101/51 103/49 O2 Sat by Pulse 97 99 94 Oximetry O2 Sat by Pulse Oximetry [ Assessment] 06/26/17 06/26/17 06/26/17 00:06 01:00 02:00 Temperature 98.0 F Pulse Rate 90 89 Respiratory 23 24 25 H Rate Blood Pressure 90/56 92/52 103/54 O2 Sat by Pulse 97 98 100 Oximetry O2 Sat by Pulse Oximetry [ Assessment] 06/26/17 06/26/17 06/26/17 03:00 04:00 04:45 Temperature 98.3 F Pulse Rate 91 H 90 79 Respiratory 23 21 Rate Blood Pressure 103/51 96/54 140/60 O2 Sat by Pulse 98 99 95 Oximetry O2 Sat by Pulse Oximetry [ Assessment] 06/26/17 06/26/17 06/26/17 05:00 06:01 07:00 Temperature Pulse Rate 95 H 92 H 79 Respiratory 19 25 H 19 Rate Blood Pressure 90/42 90/42 140/60 O2 Sat by Pulse 98 96 99 Oximetry O2 Sat by Pulse Oximetry [ Assessment] 06/26/17 06/26/17 06/26/17 07:40 07:42 08:00 Temperature 98.8 F Pulse Rate 83 Respiratory 22 Rate Blood Pressure 138/54 O2 Sat by Pulse 95 98 Oximetry O2 Sat by Pulse 96 Oximetry [ Assessment] - Lab 06/26/17 05:21 06/26/17 05:21 Most recent lab results ABG pH 7.438 pH Units (7.350-7.450) 06/22/17 05:00 ABG pCO2 42.6 mm Hg 06/22/17 05:00 ABG pO2 110.7 mm Hg (80.0-90.0) H 06/22/17 05:00 ABG HCO3 28.2 mmol/L (20.0-26.0) H 06/22/17 05:00 ABG O2 Saturation 98.1 % (95.0-99.0) 06/22/17 05:00 Calcium 9.0 mg/dL (8.4-10.2) 06/26/17 05:21 Phosphorus 2.10 mg/dL (2.5-4.5) L D 06/26/17 05:21 Magnesium 1.90 mg/dL (1.7-2.3) 06/16/17 11:00
[2017-06-26] MEDS: HEPARIN SUB-Q SCH ×2 (10:54→22:00)
[2017-06-26] MEDS: BABY ASPIRIN PO SCH (10:55)
[2017-06-26] MEDS: PEPCID PO SCH (10:55)
[2017-06-26] MEDS ORDERED: MAGNESIUM SULFATE 2GM/50ML 2 GM/50 ML BAG IV ONE (12:00)
--- NOTE | 2017-06-26 13:01 | Progress Note ---
Assessment and Plan Assessment: 1) Sepsis: resolved. Etiology - Proteus septicemia. CRP=13 / Xpzrni=221 (?very high level). CT abd showed no abscess or collection. 2) Proteus septicemia: ? lungs 3) Acute left MCA stroke with right-sided weakness. MRI brain showed large left MCA acute infarct. 4) Secondary hyperparathyroidismelective s/p total parathyroidectomy on 06/04/17 5) ESRD on HD 6) Respiratory failure ? pulmonary edema versus VAP 7) Presumed VAP: tracheal asp + Proteus s/p trach Plan: -contiue ceftriaxone 2 g IV qday - day 8 (from zosyn starting date) -f/u repeat procalcitonin -large yellow secretions -t tube - continue frequent suctioning -upon discharge will do levaquin 750 mg PO QOD total 14 days from 06/21 until I am off tomorrow, I will see her back on Wednesday Thank you Sienna for your consultation, will follow up with you. Paz Bonilla MD Infectious Diseases Specialist [facility] [id number] [phone] [id number] [phone] Subjective Date of service: 06/26/17 Principal diagnosis: ARM/MV/Post hyperparathy./ESRD Interval history: Alert on On t-piece, no fever. + large yellow secretions -t tube suctioned frequently per nursing staff Current antibiotics: Ceftriaxone 06/22 Previous Antimicrobials: Zosyn 06/19 Vancomycin 06/19 Microbiology: Blood cultures: 06/19 Proteus 06/21 neg Urine cultures: none Respiratory cultures: 06/04 ngtd 06/20 Proteus Objective - Exam Narrative Exam: General appearance: alert on the vent Eyes: anicteric sclerae, moist conjunctivae; no lid-lag; PERRLA HENT: Atraumatic; oropharynx +NGT Neck: surgical scar well healed +trach Lungs: dillon rhonchi / chest + mastectomy scar well healed CV: RRR Abdomen: Soft, non-tender Extremities: +peripheral edema Skin: Normal temperature, turgor and texture; no rash, ulcers or subcutaneous nodules Psych: alert Neuro: alert following commands Lines: - Constitutional Vitals: Vital Signs Temp Pulse Resp BP Pulse Ox 98.6 F 83 26 H 130/58 99 06/26/17 12:00 06/26/17 11:00 06/26/17 11:00 06/26/17 11:00 06/26/17 11:00 Temperature -Last 24 Hours Temperature 98.6 F Temperature 98.8 F Temperature 98.3 F Temperature 98.0 F Temperature 98.0 F Temperature 97.9 F Temperature 98.0 F Temperature 99.8 F - Labs CBC & Chem 7: 06/26/17 05:21 06/26/17 05:21 Labs: Abnormal lab results 06/26/17 06/26/17 06/26/17 Range/Units 05:21 05:21 05:21 WBC 13.1 H (4.5-11.0) K/mm3 Hgb 9.7 L (10.1-14.3) gm/dl MCV 76 L (79-97) fl MCH 24 L (28-32) pg RDW 18.4 H (13.2-15.2) % Potassium 3.2 L (3.6-5.0) mmol/L Chloride 95.5 L (98-107) mmol/L BUN 19 H (7-17) mg/dL Creatinine 4.2 H (0.7-1.2) mg/dL Glucose 127 H (65-100) mg/dL POC Glucose (70-105) Phosphorus 2.10 L D (2.5-4.5) mg/dL 06/26/17 Range/Units 11:53 WBC (4.5-11.0) K/mm3 Hgb (10.1-14.3) gm/dl MCV (79-97) fl MCH (28-32) pg RDW (13.2-15.2) % Potassium (3.6-5.0) mmol/L Chloride (98-107) mmol/L BUN (7-17) mg/dL Creatinine (0.7-1.2) mg/dL Glucose (65-100) mg/dL POC Glucose 115 H (70-105) Phosphorus (2.5-4.5) mg/dL
[2017-06-27 05:41] LABS: Hematocrit 31.4 % (30.3-42.9); Hemoglobin 9.5 gm/dl (10.1-14.3); Mean Corpuscular HGB Conc 30 % (30-34); Mean Corpuscular Volume 78 fl (79-97); Red Blood Count 4.02 M/mm3 (3.65-5.03); Red Cell Distribution Width 18.4 % (13.2-15.2); White Blood Count 14.1 K/mm3 (4.5-11.0)
[2017-06-27 05:51] LABS: Mean Corpuscular Hemoglobin 24 pg (28-32); Platelet Count 301 K/mm3 (140-440)
[2017-06-27 05:57] LABS: Calcium 9.9 mg/dL (8.4-10.2); Chloride 94.5 mmol/L (98-107); Potassium 3.3 mmol/L (3.6-5.0)
[2017-06-27] MEDS: PROAMATINE PO SCH ×3 (06:50→22:10)
--- NOTE | 2017-06-27 08:52 | Progress Note ---
Assessment and Plan Assessment and plan: Acute hypoxic respiratory failure on mechanical ventilation more than 96 hours re-intubated, continue vent and s/p trach on 06/21/17 cont periodic breathing treatment, pulmonary following Acute left MCA stroke with right-sided weakness MRI brain showed large left MCA acute infarct Continue Aspirin and statin Vascular surgery consulted no intervention needed received mannitol for IC edema Sepsis May have Aspiration pneumonia which is obscured by pulmonary edema Blood cultures reviewed growing Proteus mirabilis Sputum culture also with proteus mirabilis Now on Ceftriaxone Metabolic Enchephalopathy due to stroke, s/p mannitol Status post subtotal parathyroidectomy Continue postop care per surgery continue to replete calcium as needed End-stage renal disease on hemodialysis Continue hemodialysis as scheduled per nephrology Hyperkalemia Now resolved. Hypertension Continue prn medication History of breast cancer status post mastectomy Stable Morbid obesity with BMI > 40 Nutrition input appreciated Moderate malnutrition continue tube feeds Hyponatremia Now resolved, Sodium 139. Hypotension, persisting Patient on Midodrine. Discussed with Dr. Beckwith. CT Abd/Pelvis negative for intra-abdominal abscess. Discussed with Aunt at bedside few days ago. History Interval history: Patient still intubated, Hypotension improving, no fever Hospitalist Physical - Physical exam Narrative exam: Gen Appearance: Not in acute distress, morbidly obese HEENT: normocephalic, atraumatic Neck: supple, no JVD Lungs: clear to auscultation bilaterally, no crackles or wheezes Heart: S1 and S2 regular, no murmurs, rubs or gallop Abdomen: Soft , non tender, non distended, PEG tube, normal bowel sounds Extremity: No edema, clubbing or cyanosis Neuro : Tracheostomy, sedated - Constitutional Vitals: Temp Pulse Resp BP Pulse Ox 99.0 F 77 20 108/43 99 06/27/17 07:53 06/27/17 07:00 06/27/17 07:00 06/27/17 07:00 06/27/17 06:00 General appearance: Present: no acute distress, other (withdrawn, nonverbal) Results - Labs CBC & Chem 7: 06/27/17 04:32 06/27/17 04:32 Labs: Laboratory Last Values WBC 14.1 K/mm3 (4.5-11.0) H 06/27/17 04:32 RBC 4.02 M/mm3 (3.65-5.03) 06/27/17 04:32 Hgb 9.5 gm/dl (10.1-14.3) L 06/27/17 04:32 POC Hgb 14.3 (12-17) 06/04/17 16:22 Hct 31.4 % (30.3-42.9) 06/27/17 04:32 POC Hct 42 (38-51) 06/04/17 16:22 MCV 78 fl (79-97) L 06/27/17 04:32 MCH 24 pg (28-32) L 06/27/17 04:32 MCHC 30 % (30-34) 06/27/17 04:32 RDW 18.4 % (13.2-15.2) H 06/27/17 04:32 Plt Count 301 K/mm3 (140-440) 06/27/17 04:32 [place] % (Auto) 11.2 % (0.0-7.3) H 06/16/17 08:45 Eos % (Auto) 1.4 % (0.0-4.3) 06/16/17 08:45 [place] # 1.6 K/mm3 (0.0-0.8) H 06/16/17 08:45 Eos # 0.2 K/mm3 (0.0-0.4) 06/16/17 08:45 Baso # 0.1 K/mm3 (0.0-0.1) 06/16/17 08:45 Add Manual Diff Complete 06/16/17 08:45 Total Counted 100 06/16/17 08:45 Seg Neutrophils % 82.8 % (40.0-70.0) H 06/16/17 08:45 Seg Neuts % (Manual) 78.0 % (40.0-70.0) H 06/16/17 08:45 Band Neutrophils % 1.0 % 06/16/17 08:45 Lymphocytes % (Manual) 3.0 % (13.4-35.0) L 06/16/17 08:45 Reactive Lymphs % (Man) 0 % 06/16/17 08:45 Monocytes % (Manual) 9.0 % (0.0-7.3) H 06/16/17 08:45 Eosinophils % (Manual) 2.0 % (0.0-4.3) 06/16/17 08:45 Basophils % (Manual) 1.0 % (0.0-1.8) 06/16/17 08:45 Metamyelocytes % 6.0 % 06/16/17 08:45 Myelocytes % 0 % 06/16/17 08:45 Promyelocytes % 0 % 06/16/17 08:45 Blast Cells % 0 % 06/16/17 08:45 Nucleated RBC % 1.0 % (0.0-0.9) H 06/16/17 08:45 Seg Neutrophils # 12.2 K/mm3 (1.8-7.7) H 06/16/17 08:45 Seg Neutrophils # Man 17.1 K/mm3 (1.8-7.7) H 06/16/17 08:45 Band Neutrophils # 0.2 K/mm3 06/16/17 08:45 Lymphocytes # (Manual) 0.7 K/mm3 (1.2-5.4) L 06/16/17 08:45 Abs React Lymphs (Man) 0.0 K/mm3 06/16/17 08:45 Monocytes # (Manual) 2.0 K/mm3 (0.0-0.8) H 06/16/17 08:45 Eosinophils # (Manual) 0.4 K/mm3 (0.0-0.4) 06/16/17 08:45 Basophils # (Manual) 0.2 K/mm3 (0.0-0.1) H 06/16/17 08:45 Metamyelocytes # 1.3 K/mm3 06/16/17 08:45 Myelocytes # 0.0 K/mm3 06/16/17 08:45 Promyelocytes # 0.0 K/mm3 06/16/17 08:45 Blast Cells # 0.0 K/mm3 06/16/17 08:45 WBC Morphology Not Reportable 06/16/17 08:45 Hypersegmented Neuts Not Reportable 06/16/17 08:45 Hyposegmented Neuts Not Reportable 06/16/17 08:45 Hypogranular Neuts Not Reportable 06/16/17 08:45 Smudge Cells Not Reportable 06/16/17 08:45 Toxic Granulation Not Reportable 06/16/17 08:45 Toxic Vacuolation Not Reportable 06/16/17 08:45 Dohle Bodies Not Reportable 06/16/17 08:45 Pelger-Huet Anomaly Not Reportable 06/16/17 08:45 Sunita Rods Not Reportable 06/16/17 08:45 Platelet Estimate Cons 06/16/17 08:45 Clumped Platelets Not Reportable 06/16/17 08:45 Plt Clumps, EDTA Not Reportable 06/16/17 08:45 Large Platelets Not Reportable 06/16/17 08:45 Giant Platelets Not Reportable 06/16/17 08:45 Platelet Satelliting Not Reportable 06/16/17 08:45 Plt Morphology Comment Not Reportable 06/16/17 08:45 RBC Morphology Not Reportable 06/16/17 08:45 Dimorphic RBCs Not Reportable 06/16/17 08:45 Polychromasia Not Reportable 06/16/17 08:45 Hypochromasia 2+ 06/16/17 08:45 Poikilocytosis Not Reportable 06/16/17 08:45 Anisocytosis Not Reportable 06/16/17 08:45 Microcytosis 1+ 06/16/17 08:45 Macrocytosis Not Reportable 06/16/17 08:45 Spherocytes Not Reportable 06/16/17 08:45 Pappenheimer Bodies Not Reportable 06/16/17 08:45 Sickle Cells Not Reportable 06/16/17 08:45 Target Cells Not Reportable 06/16/17 08:45 Tear Drop Cells Few 06/16/17 08:45 Ovalocytes Not Reportable 06/16/17 08:45 Helmet Cells Not Reportable 06/16/17 08:45 [place] Bodies Not Reportable 06/16/17 08:45 [place] Rings Not Reportable 06/16/17 08:45 [place] Cells Not Reportable 06/16/17 08:45 Bite Cells Not Reportable 06/16/17 08:45 Crenated Cell Not Reportable 06/16/17 08:45 Elliptocytes Not Reportable 06/16/17 08:45 Acanthocytes (Spur) Not Reportable 06/16/17 08:45 Rouleaux Not Reportable 06/16/17 08:45 Hemoglobin C Crystals Not Reportable 06/16/17 08:45 Schistocytes Few 06/16/17 08:45 Malaria parasites Not Reportable 06/16/17 08:45 Williams Bodies Not Reportable 06/16/17 08:45 Hem Pathologist Commnt No 06/16/17 08:45 PT 15.2 Sec. (12.2-14.9) H 06/21/17 05:45 INR 1.14 (0.87-1.13) H 06/21/17 05:45 APTT 29.9 Sec. (24.2-36.6) 06/09/17 16:55 POC ABG pH 7.441 (7.35-7.45) 06/24/17 13:15 ABG pH 7.438 pH Units (7.350-7.450) 06/22/17 05:00 POC ABG pCO2 43.9 (35-45) 06/24/17 13:15 ABG pCO2 42.6 mm Hg 06/22/17 05:00 POC ABG pO2 101 (80-105) 06/24/17 13:15 ABG pO2 110.7 mm Hg (80.0-90.0) H 06/22/17 05:00 POC ABG HCO3 29.9 06/24/17 13:15 ABG HCO3 28.2 mmol/L (20.0-26.0) H 06/22/17 05:00 POC ABG Total CO2 31 06/24/17 13:15 POC ABG O2 Sat 98 06/24/17 13:15 ABG O2 Saturation 98.1 % (95.0-99.0) 06/22/17 05:00 ABG O2 Content 12.3 (0.0-44) 06/22/17 05:00 POC ABG Base Excess 6 06/24/17 13:15 ABG Base Excess 3.7 mmol/L (-2.0-3.0) H 06/22/17 05:00 ABG Hemoglobin 8.9 gm/dl (12.0-16.0) L 06/22/17 05:00 ABG Carboxyhemoglobin 1.7 % (0.0-5.0) 06/22/17 05:00 ABG Methemoglobin 0.3 % (0.0-1.5) 06/22/17 05:00 Oxyhemoglobin 96.1 % (95.0-99.0) 06/22/17 05:00 POC Sodium 137 mmol/L (138-146) L 06/04/17 16:22 POC Potassium 5.3 (3.5-4.9) H 06/04/17 16:22 POC Chloride 102 (98-109) 06/04/17 16:22 FiO2 30 % 06/24/17 13:15 Sodium 140 mmol/L (137-145) 06/27/17 04:32 Potassium 3.3 mmol/L (3.6-5.0) L 06/27/17 04:32 Chloride 94.5 mmol/L (98-107) L 06/27/17 04:32 Carbon Dioxide 26 mmol/L (22-30) 06/27/17 04:32 Anion Gap 23 mmol/L 06/27/17 04:32 POC BUN 45 mg/dl (8-26) H 06/04/17 16:22 BUN 33 mg/dL (7-17) H 06/27/17 04:32 Creatinine 6.4 mg/dL (0.7-1.2) H D 06/27/17 04:32 Estimated GFR 8 ml/min 06/27/17 04:32 BUN/Creatinine Ratio 5 % 06/27/17 04:32 Glucose 122 mg/dL (65-100) H 06/27/17 04:32 POC Glucose 127 (70-105) H 06/27/17 05:36 Osmolality 312 Mosm/kg 06/14/17 09:25 Calcium 9.9 mg/dL (8.4-10.2) 06/27/17 04:32 Phosphorus 2.10 mg/dL (2.5-4.5) L D 06/26/17 05:21 Magnesium 1.80 mg/dL (1.7-2.3) 06/26/17 05:21 Total Bilirubin 0.40 mg/dL (0.1-1.2) 06/18/17 08:10 AST 14 units/L (5-40) 06/18/17 08:10 ALT 6 units/L (7-56) L 06/18/17 08:10 Alkaline Phosphatase 92 units/L (35-129) 06/18/17 08:10 C-Reactive Protein 13.60 mg/dL (0.00-1.30) H 06/21/17 08:28 Total Protein 5.9 g/dL (6.3-8.2) L 06/18/17 08:10 Albumin 2.8 g/dL (3.9-5) L 06/18/17 08:10 Albumin/Globulin Ratio 0.9 % 06/18/17 08:10 Triglycerides 132 mg/dL (2-149) 06/09/17 11:49 Cholesterol 171 mg/dL (50-199) 06/09/17 11:49 LDL Cholesterol Direct 95 mg/dL (50-130) 06/09/17 11:49 HDL Cholesterol 50 mg/dL (40-59) 06/09/17 11:49 Cholesterol/HDL Ratio 3.42 % 06/09/17 11:49 PTH Intact 40.84 pg/mL (15-65) 06/23/17 21:09 PTH Pre-Incision 641.9 (11.1-79.5) H 06/04/17 13:55 PTH Post-Excision 154.7 (11.1-79.5) H 06/04/17 13:55 PTH Intact Intraop 5 m Not Reportable 06/04/17 13:55 Random Vancomycin 17.4 ug/mL (0-40.0) 06/21/17 05:45 Miscellaneous Test Flexitest 1 H 06/21/17 08:28 Blood Type O POSITIVE 06/21/17 05:30 Antibody Screen TNR 06/21/17 05:30 JOHN Antibody Screen Negative 06/21/17 05:30
[2017-06-27] MEDS: PEPCID PO SCH (10:07)
[2017-06-27] MEDS: BABY ASPIRIN PO SCH (10:07)
[2017-06-27] MEDS: ROCEPHIN/NS 2 GM/100 ML 2 GM/100 ML BAG IV SCH (10:07)
[2017-06-27] MEDS: ROCALTROL PO SCH (10:07)
[2017-06-27] MEDS: HEPARIN SUB-Q SCH ×2 (10:10→22:10)
--- NOTE | 2017-06-27 11:16 | Progress Note ---
Assessment and Plan - Patient Problems (1) Acute respiratory failure Current Visit: Yes Status: Acute Qualifiers: Respiratory failure complication: R (2) DVT prophylaxis Current Visit: Yes Status: Acute (3) HTN (hypertension) Current Visit: Yes Status: Acute Qualifiers: Hypertension type: H (4) Hypercalcemia Current Visit: Yes Status: Acute (5) Hyperparathyroidism Current Visit: Yes Status: Acute (6) Stroke Onset Date: ~06/08/17 Current Visit: Yes Status: Acute Qualifiers: CVA mechanism: unspecified Precerebral and cerebral artery: P Laterality of affected vessel: L Qualified Code(s): I63.9 - Cerebral infarction, unspecified (7) ESRD (end stage renal disease) on dialysis Current Visit: Yes Status: Chronic Subjective Principal diagnosis: ARM/MV/Post hyperparathy./ESRD Interval history: awake Objective Vital Signs - 12hr 06/27/17 06/27/17 06/27/17 00:00 00:09 00:40 Temperature 98.8 F Pulse Rate 78 Respiratory 21 27 H Rate Blood Pressure 111/50 O2 Sat by Pulse 99 99 Oximetry O2 Sat by Pulse 99 Oximetry [ Assessment] 06/27/17 06/27/17 06/27/17 01:00 02:00 03:00 Temperature Pulse Rate 77 77 71 Respiratory 25 H 20 19 Rate Blood Pressure 99/44 106/45 97/45 O2 Sat by Pulse 97 96 96 Oximetry O2 Sat by Pulse Oximetry [ Assessment] 06/27/17 06/27/17 06/27/17 04:00 04:45 05:00 Temperature 98.9 F Pulse Rate 76 77 Respiratory 25 H 18 19 Rate Blood Pressure 115/54 95/40 O2 Sat by Pulse 99 98 98 Oximetry O2 Sat by Pulse Oximetry [ Assessment] 06/27/17 06/27/17 06/27/17 06:00 07:00 07:53 Temperature 99.0 F Pulse Rate 82 77 Respiratory 21 20 Rate Blood Pressure 89/34 108/43 O2 Sat by Pulse 99 Oximetry O2 Sat by Pulse Oximetry [ Assessment] 06/27/17 09:39 Temperature Pulse Rate Respiratory Rate Blood Pressure O2 Sat by Pulse 94 Oximetry O2 Sat by Pulse 94 Oximetry [ Assessment] Constitutional: no acute distress, alert Eyes: non-icteric ENT: other (orally intubated) Neck: supple, no JVD, other (tracheotomy and position, no bleeding) Effort: normal Ascultation: Bilateral: clear, diminished breath sounds, other (coarse BS bilaterally) Percussion: Bilateral: not dull Cardiovascular: regular rate and rhythm Gastrointestinal: normoactive bowel sounds, soft, non-tender, non-distended, other (obese, ) Integumentary: normal Extremities: no cyanosis, no edema, pink and warm, edema Neurologic: other (open eyes spontaneously but not fully oriented, maybe a facet. Right hemiparesis,GCS 5-6, ) Psychiatric: mood appropriate, affect normal CBC and BMP: 06/27/17 04:32 06/27/17 04:32 ABG, PT/INR, D-dimer: ABG POC ABG pH 7.441 (7.35-7.45) 06/24/17 13:15 ABG pH 7.438 pH Units (7.350-7.450) 06/22/17 05:00 POC ABG pCO2 43.9 (35-45) 06/24/17 13:15 ABG pCO2 42.6 mm Hg 06/22/17 05:00 POC ABG pO2 101 (80-105) 06/24/17 13:15 ABG pO2 110.7 mm Hg (80.0-90.0) H 06/22/17 05:00 POC ABG HCO3 29.9 06/24/17 13:15 POC ABG Total CO2 31 06/24/17 13:15 POC ABG O2 Sat 98 06/24/17 13:15 ABG O2 Saturation 98.1 % (95.0-99.0) 06/22/17 05:00 PT/INR, D-dimer PT 15.2 Sec. (12.2-14.9) H 06/21/17 05:45 INR 1.14 (0.87-1.13) H 06/21/17 05:45 Abnormal lab findings: Abnormal Labs 06/04/17 06/04/17 06/04/17 00:01 12:50 13:55 WBC 11.4 H RBC Hgb Hct POC Hct MCV 76 L MCH 23 L RDW 18.5 H [place] % (Auto) [place] # Seg Neutrophils % Seg Neuts % (Manual) 89.0 H Lymphocytes % (Manual) 6.0 L Monocytes % (Manual) Nucleated RBC % Seg Neutrophils # Seg Neutrophils # Man 10.1 H Lymphocytes # (Manual) 0.7 L Monocytes # (Manual) Eosinophils # (Manual) Basophils # (Manual) PT INR POC ABG pH ABG pH POC ABG pCO2 POC ABG pO2 ABG pO2 ABG HCO3 ABG O2 Saturation ABG Base Excess ABG Hemoglobin POC Sodium POC Potassium Sodium Potassium 5.1 H 5.2 H Chloride Carbon Dioxide POC BUN BUN 48 H Creatinine 6.2 H Glucose POC Glucose Calcium Phosphorus ALT C-Reactive Protein Total Protein Albumin PTH Pre-Incision PTH Post-Excision Miscellaneous Test 06/04/17 06/04/17 06/04/17 13:55 16:10 16:16 WBC RBC Hgb Hct POC Hct 37 L MCV MCH RDW [place] % (Auto) [place] # Seg Neutrophils % Seg Neuts % (Manual) Lymphocytes % (Manual) Monocytes % (Manual) Nucleated RBC % Seg Neutrophils # Seg Neutrophils # Man Lymphocytes # (Manual) Monocytes # (Manual) Eosinophils # (Manual) Basophils # (Manual) PT INR POC ABG pH 7.306 L ABG pH POC ABG pCO2 58.7 H POC ABG pO2 338 H ABG pO2 ABG HCO3 ABG O2 Saturation ABG Base Excess ABG Hemoglobin POC Sodium 135 L POC Potassium 5.2 H Sodium Potassium Chloride Carbon Dioxide POC BUN 44 H BUN Creatinine Glucose POC Glucose 183 H Calcium Phosphorus ALT C-Reactive Protein Total Protein Albumin PTH Pre-Incision 641.9 H PTH Post-Excision 154.7 H Miscellaneous Test 06/04/17 06/04/17 06/04/17 16:22 20:44 21:29 WBC RBC Hgb Hct POC Hct MCV MCH RDW [place] % (Auto) [place] # Seg Neutrophils % Seg Neuts % (Manual) Lymphocytes % (Manual) Monocytes % (Manual) Nucleated RBC % Seg Neutrophils # Seg Neutrophils # Man Lymphocytes # (Manual) Monocytes # (Manual) Eosinophils # (Manual) Basophils # (Manual) PT INR POC ABG pH 7.484 H ABG pH POC ABG pCO2 POC ABG pO2 ABG pO2 ABG HCO3 ABG O2 Saturation ABG Base Excess ABG Hemoglobin POC Sodium 137 L POC Potassium 5.3 H Sodium Potassium 5.2 H Chloride Carbon Dioxide POC BUN 45 H BUN 51 H Creatinine 6.5 H Glucose 119 H POC Glucose 176 H Calcium Phosphorus ALT C-Reactive Protein Total Protein Albumin PTH Pre-Incision PTH Post-Excision Miscellaneous Test 06/05/17 06/05/17 06/05/17 03:31 11:44 11:44 WBC 13.4 H RBC Hgb Hct POC Hct MCV 75 L MCH 23 L RDW 18.2 H [place] % (Auto) [place] # Seg Neutrophils % Seg Neuts % (Manual) Lymphocytes % (Manual) Monocytes % (Manual) Nucleated RBC % Seg Neutrophils # Seg Neutrophils # Man Lymphocytes # (Manual) Monocytes # (Manual) Eosinophils # (Manual) Basophils # (Manual) PT INR POC ABG pH ABG pH POC ABG pCO2 POC ABG pO2 75 L ABG pO2 ABG HCO3 ABG O2 Saturation ABG Base Excess ABG Hemoglobin POC Sodium POC Potassium Sodium Potassium 5.8 H Chloride Carbon Dioxide POC BUN BUN 56 H Creatinine 7.0 H Glucose 111 H POC Glucose Calcium 8.2 L Phosphorus ALT C-Reactive Protein Total Protein 6.2 L Albumin 3.1 L PTH Pre-Incision PTH Post-Excision Miscellaneous Test 06/06/17 06/06/17 06/07/17 05:07 07:13 03:53 WBC RBC Hgb Hct POC Hct MCV MCH RDW [place] % (Auto) [place] # Seg Neutrophils % Seg Neuts % (Manual) Lymphocytes % (Manual) Monocytes % (Manual) Nucleated RBC % Seg Neutrophils # Seg Neutrophils # Man Lymphocytes # (Manual) Monocytes # (Manual) Eosinophils # (Manual) Basophils # (Manual) PT INR POC ABG pH ABG pH POC ABG pCO2 POC ABG pO2 116 H 137 H ABG pO2 ABG HCO3 ABG O2 Saturation ABG Base Excess ABG Hemoglobin POC Sodium POC Potassium Sodium Potassium Chloride Carbon Dioxide POC BUN BUN 32 H Creatinine 4.9 H Glucose 115 H POC Glucose Calcium 7.9 L Phosphorus ALT C-Reactive Protein Total Protein 5.7 L Albumin 3.3 L PTH Pre-Incision PTH Post-Excision Miscellaneous Test 06/07/17 06/07/17 06/07/17 05:21 05:21 16:54 WBC RBC Hgb Hct POC Hct MCV 75 L MCH 24 L RDW 18.7 H [place] % (Auto) [place] # Seg Neutrophils % Seg Neuts % (Manual) Lymphocytes % (Manual) Monocytes % (Manual) Nucleated RBC % Seg Neutrophils # Seg Neutrophils # Man Lymphocytes # (Manual) Monocytes # (Manual) Eosinophils # (Manual) Basophils # (Manual) PT INR POC ABG pH ABG pH POC ABG pCO2 POC ABG pO2 ABG pO2 ABG HCO3 ABG O2 Saturation ABG Base Excess ABG Hemoglobin POC Sodium POC Potassium Sodium Potassium 5.4 H Chloride Carbon Dioxide POC BUN BUN 52 H Creatinine 6.2 H Glucose 107 H POC Glucose 110 H Calcium 8.0 L Phosphorus ALT C-Reactive Protein Total Protein Albumin PTH Pre-Incision PTH Post-Excision Miscellaneous Test 06/07/17 06/07/17 06/08/17 17:38 23:32 04:00 WBC RBC Hgb Hct POC Hct MCV 77 L MCH 23 L RDW 18.3 H [place] % (Auto) [place] # Seg Neutrophils % Seg Neuts % (Manual) 78.0 H Lymphocytes % (Manual) Monocytes % (Manual) Nucleated RBC % 3.0 H Seg Neutrophils # Seg Neutrophils # Man 7.8 H Lymphocytes # (Manual) Monocytes # (Manual) Eosinophils # (Manual) Basophils # (Manual) PT INR POC ABG pH 7.310 L ABG pH POC ABG pCO2 51.9 H POC ABG pO2 ABG pO2 ABG HCO3 ABG O2 Saturation ABG Base Excess ABG Hemoglobin POC Sodium POC Potassium Sodium Potassium Chloride Carbon Dioxide POC BUN BUN Creatinine Glucose POC Glucose 63 L Calcium Phosphorus ALT C-Reactive Protein Total Protein Albumin PTH Pre-Incision PTH Post-Excision Miscellaneous Test 06/08/17 06/08/17 06/08/17 04:00 10:51 11:25 WBC RBC Hgb Hct POC Hct MCV MCH RDW [place] % (Auto) [place] # Seg Neutrophils % Seg Neuts % (Manual) Lymphocytes % (Manual) Monocytes % (Manual) Nucleated RBC % Seg Neutrophils # Seg Neutrophils # Man Lymphocytes # (Manual) Monocytes # (Manual) Eosinophils # (Manual) Basophils # (Manual) PT INR POC ABG pH 7.336 L ABG pH POC ABG pCO2 55.1 H POC ABG pO2 ABG pO2 ABG HCO3 ABG O2 Saturation ABG Base Excess ABG Hemoglobin POC Sodium POC Potassium Sodium Potassium Chloride 96.9 L Carbon Dioxide POC BUN BUN 29 H Creatinine 4.6 H Glucose POC Glucose 108 H Calcium 8.3 L Phosphorus ALT C-Reactive Protein Total Protein Albumin PTH Pre-Incision PTH Post-Excision Miscellaneous Test 06/08/17 06/09/17 06/09/17 14:22 11:42 11:42 WBC RBC Hgb Hct POC Hct MCV 76 L MCH 24 L RDW 18.3 H [place] % (Auto) [place] # Seg Neutrophils % Seg Neuts % (Manual) 80.0 H Lymphocytes % (Manual) 10.0 L Monocytes % (Manual) Nucleated RBC % 2.0 H Seg Neutrophils # Seg Neutrophils # Man Lymphocytes # (Manual) 1.0 L Monocytes # (Manual) Eosinophils # (Manual) Basophils # (Manual) PT INR POC ABG pH ABG pH POC ABG pCO2 52.8 H POC ABG pO2 77 L ABG pO2 ABG HCO3 ABG O2 Saturation ABG Base Excess ABG Hemoglobin POC Sodium POC Potassium Sodium Potassium 5.4 H D Chloride 97.1 L Carbon Dioxide POC BUN BUN 58 H Creatinine 6.6 H Glucose POC Glucose Calcium 7.2 L Phosphorus ALT C-Reactive Protein Total Protein Albumin PTH Pre-Incision PTH Post-Excision Miscellaneous Test 06/09/17 06/10/17 06/10/17 12:04 03:29 03:29 WBC 13.7 H RBC Hgb Hct POC Hct MCV 77 L MCH 24 L RDW 17.9 H [place] % (Auto) [place] # Seg Neutrophils % Seg Neuts % (Manual) 82.0 H Lymphocytes % (Manual) 7.0 L Monocytes % (Manual) Nucleated RBC % 6.0 H Seg Neutrophils # Seg Neutrophils # Man 11.2 H Lymphocytes # (Manual) 1.0 L Monocytes # (Manual) Eosinophils # (Manual) Basophils # (Manual) PT INR POC ABG pH ABG pH POC ABG pCO2 POC ABG pO2 ABG pO2 ABG HCO3 ABG O2 Saturation ABG Base Excess ABG Hemoglobin POC Sodium POC Potassium Sodium Potassium Chloride 94.2 L Carbon Dioxide POC BUN BUN 32 H Creatinine 4.6 H Glucose 106 H POC Glucose 106 H Calcium 8.0 L Phosphorus ALT C-Reactive Protein Total Protein Albumin PTH Pre-Incision PTH Post-Excision Miscellaneous Test 06/10/17 06/11/17 06/11/17 05:27 06:00 06:00 WBC 11.8 H RBC Hgb Hct POC Hct MCV 77 L MCH 24 L RDW 18.3 H [place] % (Auto) [place] # Seg Neutrophils % Seg Neuts % (Manual) 88.0 H Lymphocytes % (Manual) 7.0 L Monocytes % (Manual) Nucleated RBC % 1.0 H Seg Neutrophils # Seg Neutrophils # Man 10.4 H Lymphocytes # (Manual) 0.8 L Monocytes # (Manual) Eosinophils # (Manual) Basophils # (Manual) PT INR POC ABG pH ABG pH POC ABG pCO2 POC ABG pO2 ABG pO2 ABG HCO3 ABG O2 Saturation ABG Base Excess ABG Hemoglobin POC Sodium POC Potassium Sodium Potassium Chloride Carbon Dioxide POC BUN BUN 53 H Creatinine 6.0 H Glucose POC Glucose 106 H Calcium 6.3 L D Phosphorus ALT C-Reactive Protein Total Protein Albumin PTH Pre-Incision PTH Post-Excision Miscellaneous Test 06/11/17 06/11/17 06/11/17 06:51 12:10 16:54 WBC RBC Hgb Hct POC Hct MCV MCH RDW [place] % (Auto) [place] # Seg Neutrophils % Seg Neuts % (Manual) Lymphocytes % (Manual) Monocytes % (Manual) Nucleated RBC % Seg Neutrophils # Seg Neutrophils # Man Lymphocytes # (Manual) Monocytes # (Manual) Eosinophils # (Manual) Basophils # (Manual) PT INR POC ABG pH 7.556 H ABG pH POC ABG pCO2 34.8 L POC ABG pO2 125 H ABG pO2 ABG HCO3 ABG O2 Saturation ABG Base Excess ABG Hemoglobin POC Sodium POC Potassium Sodium Potassium Chloride Carbon Dioxide POC BUN BUN Creatinine Glucose POC Glucose 115 H 106 H Calcium Phosphorus ALT C-Reactive Protein Total Protein Albumin PTH Pre-Incision PTH Post-Excision Miscellaneous Test 06/11/17 06/12/17 06/12/17 20:20 00:06 04:20 WBC RBC Hgb Hct POC Hct MCV MCH RDW [place] % (Auto) [place] # Seg Neutrophils % Seg Neuts % (Manual) Lymphocytes % (Manual) Monocytes % (Manual) Nucleated RBC % Seg Neutrophils # Seg Neutrophils # Man Lymphocytes # (Manual) Monocytes # (Manual) Eosinophils # (Manual) Basophils # (Manual) PT INR POC ABG pH ABG pH 7.512 H 7.514 H POC ABG pCO2 POC ABG pO2 ABG pO2 148.5 H 209.1 H ABG HCO3 ABG O2 Saturation 99.3 H ABG Base Excess ABG Hemoglobin POC Sodium POC Potassium Sodium Potassium Chloride Carbon Dioxide POC BUN BUN Creatinine Glucose POC Glucose 108 H Calcium Phosphorus ALT C-Reactive Protein Total Protein Albumin PTH Pre-Incision PTH Post-Excision Miscellaneous Test 06/12/17 06/12/17 06/12/17 05:24 05:30 05:30 WBC 14.3 H RBC Hgb Hct POC Hct MCV 75 L MCH 24 L RDW 18.5 H [place] % (Auto) [place] # Seg Neutrophils % Seg Neuts % (Manual) 73.0 H Lymphocytes % (Manual) 6.0 L Monocytes % (Manual) 9.0 H Nucleated RBC % 1.0 H Seg Neutrophils # Seg Neutrophils # Man 10.4 H Lymphocytes # (Manual) 0.9 L Monocytes # (Manual) 1.3 H Eosinophils # (Manual) Basophils # (Manual) PT INR POC ABG pH ABG pH POC ABG pCO2 POC ABG pO2 ABG pO2 ABG HCO3 ABG O2 Saturation ABG Base Excess ABG Hemoglobin POC Sodium POC Potassium Sodium 131 L D Potassium Chloride 90.6 L Carbon Dioxide POC BUN BUN 51 H Creatinine 6.5 H Glucose POC Glucose 109 H Calcium Phosphorus ALT C-Reactive Protein Total Protein Albumin PTH Pre-Incision PTH Post-Excision Miscellaneous Test 06/12/17 06/13/17 06/13/17 11:46 04:15 04:55 WBC 17.9 H RBC Hgb Hct POC Hct MCV 75 L MCH 24 L RDW 18.5 H [place] % (Auto) [place] # Seg Neutrophils % Seg Neuts % (Manual) 75.0 H Lymphocytes % (Manual) 6.0 L Monocytes % (Manual) 9.0 H Nucleated RBC % Seg Neutrophils # Seg Neutrophils # Man 13.4 H Lymphocytes # (Manual) 1.1 L Monocytes # (Manual) 1.6 H Eosinophils # (Manual) 0.5 H Basophils # (Manual) 0.2 H PT INR POC ABG pH ABG pH POC ABG pCO2 POC ABG pO2 ABG pO2 131.0 H ABG HCO3 ABG O2 Saturation ABG Base Excess ABG Hemoglobin 10.5 L POC Sodium POC Potassium Sodium Potassium Chloride Carbon Dioxide POC BUN BUN Creatinine Glucose POC Glucose 116 H Calcium Phosphorus ALT C-Reactive Protein Total Protein Albumin PTH Pre-Incision PTH Post-Excision Miscellaneous Test 06/13/17 06/13/17 06/14/17 04:55 17:23 04:30 WBC 17.8 H RBC Hgb 9.7 L Hct POC Hct MCV 76 L MCH 24 L RDW 18.3 H [place] % (Auto) [place] # Seg Neutrophils % Seg Neuts % (Manual) 74.0 H Lymphocytes % (Manual) 6.0 L Monocytes % (Manual) 9.0 H Nucleated RBC % Seg Neutrophils # Seg Neutrophils # Man 13.2 H Lymphocytes # (Manual) 1.1 L Monocytes # (Manual) 1.6 H Eosinophils # (Manual) Basophils # (Manual) PT INR POC ABG pH ABG pH POC ABG pCO2 POC ABG pO2 ABG pO2 ABG HCO3 ABG O2 Saturation ABG Base Excess ABG Hemoglobin POC Sodium POC Potassium Sodium 128 L Potassium Chloride 88.9 L Carbon Dioxide POC BUN BUN 73 H Creatinine 7.6 H Glucose 115 H POC Glucose 113 H Calcium 8.1 L Phosphorus ALT C-Reactive Protein Total Protein Albumin PTH Pre-Incision PTH Post-Excision Miscellaneous Test 06/14/17 06/14/17 06/14/17 04:30 05:30 05:49 WBC RBC Hgb Hct POC Hct MCV MCH RDW [place] % (Auto) [place] # Seg Neutrophils % Seg Neuts % (Manual) Lymphocytes % (Manual) Monocytes % (Manual) Nucleated RBC % Seg Neutrophils # Seg Neutrophils # Man Lymphocytes # (Manual) Monocytes # (Manual) Eosinophils # (Manual) Basophils # (Manual) PT INR POC ABG pH ABG pH POC ABG pCO2 POC ABG pO2 ABG pO2 109.3 H ABG HCO3 ABG O2 Saturation ABG Base Excess ABG Hemoglobin 10.7 L POC Sodium POC Potassium Sodium 124 L Potassium Chloride 84.3 L Carbon Dioxide POC BUN BUN 86 H Creatinine 9.0 H Glucose 106 H POC Glucose 111 H Calcium 8.1 L Phosphorus ALT C-Reactive Protein Total Protein Albumin PTH Pre-Incision PTH Post-Excision Miscellaneous Test 06/14/17 06/14/17 06/14/17 12:27 16:05 23:35 WBC RBC Hgb Hct POC Hct MCV MCH RDW [place] % (Auto) [place] # Seg Neutrophils % Seg Neuts % (Manual) Lymphocytes % (Manual) Monocytes % (Manual) Nucleated RBC % Seg Neutrophils # Seg Neutrophils # Man Lymphocytes # (Manual) Monocytes # (Manual) Eosinophils # (Manual) Basophils # (Manual) PT INR POC ABG pH ABG pH POC ABG pCO2 POC ABG pO2 ABG pO2 ABG HCO3 ABG O2 Saturation ABG Base Excess ABG Hemoglobin POC Sodium POC Potassium Sodium Potassium Chloride Carbon Dioxide POC BUN BUN Creatinine Glucose POC Glucose 139 H 133 H 147 H Calcium Phosphorus ALT C-Reactive Protein Total Protein Albumin PTH Pre-Incision PTH Post-Excision Miscellaneous Test 06/15/17 06/15/17 06/15/17 05:05 06:00 06:00 WBC 21.4 H RBC Hgb 9.2 L Hct POC Hct MCV 77 L MCH 23 L RDW 18.8 H [place] % (Auto) [place] # Seg Neutrophils % Seg Neuts % (Manual) 86.0 H Lymphocytes % (Manual) 2.0 L Monocytes % (Manual) Nucleated RBC % 1.0 H Seg Neutrophils # Seg Neutrophils # Man 18.4 H Lymphocytes # (Manual) 0.4 L Monocytes # (Manual) 1.5 H Eosinophils # (Manual) Basophils # (Manual) PT INR POC ABG pH ABG pH POC ABG pCO2 POC ABG pO2 ABG pO2 ABG HCO3 ABG O2 Saturation ABG Base Excess ABG Hemoglobin POC Sodium POC Potassium Sodium 132 L D Potassium Chloride 91.5 L Carbon Dioxide POC BUN BUN 59 H Creatinine 6.6 H Glucose 116 H POC Glucose 145 H Calcium Phosphorus ALT C-Reactive Protein Total Protein Albumin PTH Pre-Incision PTH Post-Excision Miscellaneous Test 06/15/17 06/15/17 06/15/17 12:04 17:55 23:40 WBC RBC Hgb Hct POC Hct MCV MCH RDW [place] % (Auto) [place] # Seg Neutrophils % Seg Neuts % (Manual) Lymphocytes % (Manual) Monocytes % (Manual) Nucleated RBC % Seg Neutrophils # Seg Neutrophils # Man Lymphocytes # (Manual) Monocytes # (Manual) Eosinophils # (Manual) Basophils # (Manual) PT INR POC ABG pH ABG pH POC ABG pCO2 POC ABG pO2 ABG pO2 ABG HCO3 ABG O2 Saturation ABG Base Excess ABG Hemoglobin POC Sodium POC Potassium Sodium Potassium Chloride Carbon Dioxide POC BUN BUN Creatinine Glucose POC Glucose 109 H 119 H 123 H Calcium Phosphorus ALT C-Reactive Protein Total Protein Albumin PTH Pre-Incision PTH Post-Excision Miscellaneous Test 06/15/17 06/16/17 06/16/17 Unknown 06:00 08:45 WBC 21.9 H RBC Hgb 8.9 L Hct 29.0 L POC Hct MCV 77 L MCH 24 L RDW 18.1 H [place] % (Auto) 11.2 H [place] # 1.6 H Seg Neutrophils % 82.8 H Seg Neuts % (Manual) 78.0 H Lymphocytes % (Manual) 3.0 L Monocytes % (Manual) 9.0 H Nucleated RBC % 1.0 H Seg Neutrophils # 12.2 H Seg Neutrophils # Man 17.1 H Lymphocytes # (Manual) 0.7 L Monocytes # (Manual) 2.0 H Eosinophils # (Manual) Basophils # (Manual) 0.2 H PT INR POC ABG pH ABG pH POC ABG pCO2 POC ABG pO2 ABG pO2 115.7 H ABG HCO3 27.6 H ABG O2 Saturation ABG Base Excess ABG Hemoglobin 9.2 L POC Sodium POC Potassium Sodium Potassium 2.7 L* D Chloride 111.6 H Carbon Dioxide 17 L D POC BUN BUN 52 H Creatinine 5.0 H Glucose POC Glucose Calcium 5.3 L* D Phosphorus ALT C-Reactive Protein Total Protein Albumin PTH Pre-Incision PTH Post-Excision Miscellaneous Test 06/16/17 06/16/17 06/16/17 09:25 11:00 12:07 WBC RBC Hgb Hct POC Hct MCV MCH RDW [place] % (Auto) [place] # Seg Neutrophils % Seg Neuts % (Manual) Lymphocytes % (Manual) Monocytes % (Manual) Nucleated RBC % Seg Neutrophils # Seg Neutrophils # Man Lymphocytes # (Manual) Monocytes # (Manual) Eosinophils # (Manual) Basophils # (Manual) PT INR POC ABG pH ABG pH POC ABG pCO2 POC ABG pO2 ABG pO2 102.0 H ABG HCO3 27.1 H ABG O2 Saturation ABG Base Excess ABG Hemoglobin 9.0 L POC Sodium POC Potassium Sodium Potassium Chloride 95.2 L Carbon Dioxide POC BUN BUN 60 H Creatinine 6.3 H Glucose 114 H POC Glucose 111 H Calcium 10.6 H D Phosphorus ALT C-Reactive Protein Total Protein Albumin PTH Pre-Incision PTH Post-Excision Miscellaneous Test 06/16/17 06/16/17 06/17/17 17:20 17:51 00:10 WBC RBC Hgb Hct POC Hct MCV MCH RDW [place] % (Auto) [place] # Seg Neutrophils % Seg Neuts % (Manual) Lymphocytes % (Manual) Monocytes % (Manual) Nucleated RBC % Seg Neutrophils # Seg Neutrophils # Man Lymphocytes # (Manual) Monocytes # (Manual) Eosinophils # (Manual) Basophils # (Manual) PT INR POC ABG pH ABG pH POC ABG pCO2 POC ABG pO2 ABG pO2 ABG HCO3 ABG O2 Saturation ABG Base Excess ABG Hemoglobin POC Sodium POC Potassium Sodium Potassium Chloride 97.4 L Carbon Dioxide POC BUN BUN 35 H Creatinine 4.4 H Glucose 116 H POC Glucose 128 H 114 H Calcium Phosphorus ALT C-Reactive Protein Total Protein Albumin PTH Pre-Incision PTH Post-Excision Miscellaneous Test 06/17/17 06/17/17 06/18/17 04:00 05:42 08:10 WBC 16.1 H RBC 3.55 L Hgb 8.4 L Hct 27.2 L POC Hct MCV 76 L MCH 24 L RDW 18.5 H [place] % (Auto) [place] # Seg Neutrophils % Seg Neuts % (Manual) Lymphocytes % (Manual) Monocytes % (Manual) Nucleated RBC % Seg Neutrophils # Seg Neutrophils # Man Lymphocytes # (Manual) Monocytes # (Manual) Eosinophils # (Manual) Basophils # (Manual) PT INR POC ABG pH ABG pH POC ABG pCO2 POC ABG pO2 ABG pO2 ABG HCO3 ABG O2 Saturation ABG Base Excess ABG Hemoglobin POC Sodium POC Potassium Sodium 136 L Potassium Chloride 94.5 L Carbon Dioxide POC BUN BUN 44 H Creatinine 5.3 H Glucose 107 H POC Glucose 110 H Calcium Phosphorus ALT C-Reactive Protein Total Protein Albumin PTH Pre-Incision PTH Post-Excision Miscellaneous Test 06/18/17 06/19/17 06/19/17 08:10 05:23 07:14 WBC 19.3 H RBC Hgb 9.2 L Hct 30.1 L POC Hct MCV 77 L MCH 23 L RDW 18.2 H [place] % (Auto) [place] # Seg Neutrophils % Seg Neuts % (Manual) Lymphocytes % (Manual) Monocytes % (Manual) Nucleated RBC % Seg Neutrophils # Seg Neutrophils # Man Lymphocytes # (Manual) Monocytes # (Manual) Eosinophils # (Manual) Basophils # (Manual) PT INR POC ABG pH ABG pH POC ABG pCO2 POC ABG pO2 ABG pO2 116.2 H ABG HCO3 28.5 H ABG O2 Saturation ABG Base Excess ABG Hemoglobin 9.1 L POC Sodium POC Potassium Sodium 134 L Potassium Chloride 91.6 L Carbon Dioxide POC BUN BUN 68 H Creatinine 7.2 H Glucose POC Glucose Calcium 10.3 H Phosphorus ALT 6 L C-Reactive Protein Total Protein 5.9 L Albumin 2.8 L PTH Pre-Incision PTH Post-Excision Miscellaneous Test 06/19/17 06/19/17 06/20/17 07:15 23:37 04:40 WBC RBC Hgb Hct POC Hct MCV MCH RDW [place] % (Auto) [place] # Seg Neutrophils % Seg Neuts % (Manual) Lymphocytes % (Manual) Monocytes % (Manual) Nucleated RBC % Seg Neutrophils # Seg Neutrophils # Man Lymphocytes # (Manual) Monocytes # (Manual) Eosinophils # (Manual) Basophils # (Manual) PT INR POC ABG pH ABG pH POC ABG pCO2 POC ABG pO2 ABG pO2 ABG HCO3 ABG O2 Saturation ABG Base Excess ABG Hemoglobin POC Sodium POC Potassium Sodium 135 L Potassium Chloride 94.3 L Carbon Dioxide POC BUN BUN 41 H Creatinine 5.4 H Glucose 117 H POC Glucose 152 H 140 H Calcium 10.3 H Phosphorus ALT C-Reactive Protein Total Protein Albumin PTH Pre-Incision PTH Post-Excision Miscellaneous Test 06/21/17 06/21/17 06/21/17 05:13 05:45 05:45 WBC 18.8 H RBC 3.54 L Hgb 8.2 L Hct 27.6 L POC Hct MCV 78 L MCH 23 L RDW 18.6 H [place] % (Auto) [place] # Seg Neutrophils % Seg Neuts % (Manual) Lymphocytes % (Manual) Monocytes % (Manual) Nucleated RBC % Seg Neutrophils # Seg Neutrophils # Man Lymphocytes # (Manual) Monocytes # (Manual) Eosinophils # (Manual) Basophils # (Manual) PT 15.2 H INR 1.14 H POC ABG pH ABG pH POC ABG pCO2 POC ABG pO2 ABG pO2 ABG HCO3 ABG O2 Saturation ABG Base Excess ABG Hemoglobin POC Sodium POC Potassium Sodium Potassium Chloride Carbon Dioxide POC BUN BUN Creatinine Glucose POC Glucose 140 H Calcium Phosphorus ALT C-Reactive Protein Total Protein Albumin PTH Pre-Incision PTH Post-Excision Miscellaneous Test 06/21/17 06/21/17 06/21/17 05:45 08:28 08:28 WBC RBC Hgb Hct POC Hct MCV MCH RDW [place] % (Auto) [place] # Seg Neutrophils % Seg Neuts % (Manual) Lymphocytes % (Manual) Monocytes % (Manual) Nucleated RBC % Seg Neutrophils # Seg Neutrophils # Man Lymphocytes # (Manual) Monocytes # (Manual) Eosinophils # (Manual) Basophils # (Manual) PT INR POC ABG pH ABG pH POC ABG pCO2 POC ABG pO2 ABG pO2 ABG HCO3 ABG O2 Saturation ABG Base Excess ABG Hemoglobin POC Sodium POC Potassium Sodium Potassium Chloride 95.5 L Carbon Dioxide POC BUN BUN 38 H Creatinine 4.8 H Glucose 126 H POC Glucose Calcium Phosphorus ALT C-Reactive Protein 13.60 H Total Protein Albumin PTH Pre-Incision PTH Post-Excision Miscellaneous Test Flexitest 1 H 06/21/17 06/22/17 06/22/17 23:21 04:53 05:00 WBC RBC Hgb Hct POC Hct MCV MCH RDW [place] % (Auto) [place] # Seg Neutrophils % Seg Neuts % (Manual) Lymphocytes % (Manual) Monocytes % (Manual) Nucleated RBC % Seg Neutrophils # Seg Neutrophils # Man Lymphocytes # (Manual) Monocytes # (Manual) Eosinophils # (Manual) Basophils # (Manual) PT INR POC ABG pH ABG pH POC ABG pCO2 POC ABG pO2 ABG pO2 110.7 H ABG HCO3 28.2 H ABG O2 Saturation ABG Base Excess 3.7 H ABG Hemoglobin 8.9 L POC Sodium POC Potassium Sodium Potassium Chloride Carbon Dioxide POC BUN BUN Creatinine Glucose POC Glucose 117 H 111 H Calcium Phosphorus ALT C-Reactive Protein Total Protein Albumin PTH Pre-Incision PTH Post-Excision Miscellaneous Test 06/22/17 06/22/17 06/22/17 11:49 11:59 11:59 WBC 15.4 H RBC Hgb 8.6 L Hct 28.4 L POC Hct MCV 77 L MCH 23 L RDW 18.4 H [place] % (Auto) [place] # Seg Neutrophils % Seg Neuts % (Manual) Lymphocytes % (Manual) Monocytes % (Manual) Nucleated RBC % Seg Neutrophils # Seg Neutrophils # Man Lymphocytes # (Manual) Monocytes # (Manual) Eosinophils # (Manual) Basophils # (Manual) PT INR POC ABG pH ABG pH POC ABG pCO2 POC ABG pO2 ABG pO2 ABG HCO3 ABG O2 Saturation ABG Base Excess ABG Hemoglobin POC Sodium POC Potassium Sodium Potassium Chloride Carbon Dioxide POC BUN BUN 25 H Creatinine 4.2 H Glucose 101 H POC Glucose 123 H Calcium Phosphorus ALT C-Reactive Protein Total Protein Albumin PTH Pre-Incision PTH Post-Excision Miscellaneous Test 06/23/17 06/23/17 06/23/17 02:49 02:49 04:45 WBC 12.1 H RBC 3.53 L Hgb 8.4 L Hct 27.2 L POC Hct MCV 77 L MCH 24 L RDW 18.5 H [place] % (Auto) [place] # Seg Neutrophils % Seg Neuts % (Manual) Lymphocytes % (Manual) Monocytes % (Manual) Nucleated RBC % Seg Neutrophils # Seg Neutrophils # Man Lymphocytes # (Manual) Monocytes # (Manual) Eosinophils # (Manual) Basophils # (Manual) PT INR POC ABG pH 7.530 H ABG pH POC ABG pCO2 34.7 L POC ABG pO2 136 H ABG pO2 ABG HCO3 ABG O2 Saturation ABG Base Excess ABG Hemoglobin POC Sodium POC Potassium Sodium Potassium Chloride Carbon Dioxide POC BUN BUN 36 H Creatinine 5.6 H Glucose POC Glucose Calcium Phosphorus ALT C-Reactive Protein Total Protein Albumin PTH Pre-Incision PTH Post-Excision Miscellaneous Test 06/23/17 06/23/17 06/24/17 19:16 21:09 05:02 WBC RBC Hgb Hct POC Hct MCV MCH RDW [place] % (Auto) [place] # Seg Neutrophils % Seg Neuts % (Manual) Lymphocytes % (Manual) Monocytes % (Manual) Nucleated RBC % Seg Neutrophils # Seg Neutrophils # Man Lymphocytes # (Manual) Monocytes # (Manual) Eosinophils # (Manual) Basophils # (Manual) PT INR POC ABG pH 7.511 H ABG pH POC ABG pCO2 POC ABG pO2 111 H ABG pO2 ABG HCO3 ABG O2 Saturation ABG Base Excess ABG Hemoglobin POC Sodium POC Potassium Sodium Potassium Chloride Carbon Dioxide POC BUN BUN Creatinine Glucose POC Glucose Calcium 10.8 H D Phosphorus 1.70 L 1.90 L ALT C-Reactive Protein Total Protein Albumin PTH Pre-Incision PTH Post-Excision Miscellaneous Test 06/24/17 06/24/17 06/24/17 05:04 05:04 05:29 WBC 14.0 H RBC Hgb 9.5 L Hct 29.9 L POC Hct MCV 77 L MCH 24 L RDW 18.4 H [place] % (Auto) [place] # Seg Neutrophils % Seg Neuts % (Manual) Lymphocytes % (Manual) Monocytes % (Manual) Nucleated RBC % Seg Neutrophils # Seg Neutrophils # Man Lymphocytes # (Manual) Monocytes # (Manual) Eosinophils # (Manual) Basophils # (Manual) PT INR POC ABG pH ABG pH POC ABG pCO2 POC ABG pO2 ABG pO2 ABG HCO3 ABG O2 Saturation ABG Base Excess ABG Hemoglobin POC Sodium POC Potassium Sodium Potassium Chloride 94.8 L Carbon Dioxide POC BUN BUN 26 H Creatinine 4.4 H Glucose 106 H POC Glucose 124 H Calcium 10.8 H Phosphorus ALT C-Reactive Protein Total Protein Albumin PTH Pre-Incision PTH Post-Excision Miscellaneous Test 06/25/17 06/25/17 06/25/17 03:37 03:37 11:47 WBC 13.4 H RBC Hgb 9.2 L Hct 29.5 L POC Hct MCV 77 L MCH 24 L RDW 19.0 H [place] % (Auto) [place] # Seg Neutrophils % Seg Neuts % (Manual) Lymphocytes % (Manual) Monocytes % (Manual) Nucleated RBC % Seg Neutrophils # Seg Neutrophils # Man Lymphocytes # (Manual) Monocytes # (Manual) Eosinophils # (Manual) Basophils # (Manual) PT INR POC ABG pH ABG pH POC ABG pCO2 POC ABG pO2 ABG pO2 ABG HCO3 ABG O2 Saturation ABG Base Excess ABG Hemoglobin POC Sodium POC Potassium Sodium 133 L Potassium 3.4 L Chloride 90.7 L Carbon Dioxide POC BUN BUN 40 H Creatinine 6.4 H Glucose POC Glucose 119 H Calcium Phosphorus ALT C-Reactive Protein Total Protein Albumin PTH Pre-Incision PTH Post-Excision Miscellaneous Test 06/26/17 06/26/17 06/26/17 05:21 05:21 05:21 WBC 13.1 H RBC Hgb 9.7 L Hct POC Hct MCV 76 L MCH 24 L RDW 18.4 H [place] % (Auto) [place] # Seg Neutrophils % Seg Neuts % (Manual) Lymphocytes % (Manual) Monocytes % (Manual) Nucleated RBC % Seg Neutrophils # Seg Neutrophils # Man Lymphocytes # (Manual) Monocytes # (Manual) Eosinophils # (Manual) Basophils # (Manual) PT INR POC ABG pH ABG pH POC ABG pCO2 POC ABG pO2 ABG pO2 ABG HCO3 ABG O2 Saturation ABG Base Excess ABG Hemoglobin POC Sodium POC Potassium Sodium Potassium 3.2 L Chloride 95.5 L Carbon Dioxide POC BUN BUN 19 H Creatinine 4.2 H Glucose 127 H POC Glucose Calcium Phosphorus 2.10 L D ALT C-Reactive Protein Total Protein Albumin PTH Pre-Incision PTH Post-Excision Miscellaneous Test 06/26/17 06/26/17 06/26/17 11:53 18:09 23:57 WBC RBC Hgb Hct POC Hct MCV MCH RDW [place] % (Auto) [place] # Seg Neutrophils % Seg Neuts % (Manual) Lymphocytes % (Manual) Monocytes % (Manual) Nucleated RBC % Seg Neutrophils # Seg Neutrophils # Man Lymphocytes # (Manual) Monocytes # (Manual) Eosinophils # (Manual) Basophils # (Manual) PT INR POC ABG pH ABG pH POC ABG pCO2 POC ABG pO2 ABG pO2 ABG HCO3 ABG O2 Saturation ABG Base Excess ABG Hemoglobin POC Sodium POC Potassium Sodium Potassium Chloride Carbon Dioxide POC BUN BUN Creatinine Glucose POC Glucose 115 H 124 H 109 H Calcium Phosphorus ALT C-Reactive Protein Total Protein Albumin PTH Pre-Incision PTH Post-Excision Miscellaneous Test 06/27/17 06/27/17 06/27/17 04:32 04:32 05:36 WBC 14.1 H RBC Hgb 9.5 L Hct POC Hct MCV 78 L MCH 24 L RDW 18.4 H [place] % (Auto) [place] # Seg Neutrophils % Seg Neuts % (Manual) Lymphocytes % (Manual) Monocytes % (Manual) Nucleated RBC % Seg Neutrophils # Seg Neutrophils # Man Lymphocytes # (Manual) Monocytes # (Manual) Eosinophils # (Manual) Basophils # (Manual) PT INR POC ABG pH ABG pH POC ABG pCO2 POC ABG pO2 ABG pO2 ABG HCO3 ABG O2 Saturation ABG Base Excess ABG Hemoglobin POC Sodium POC Potassium Sodium Potassium 3.3 L Chloride 94.5 L Carbon Dioxide POC BUN BUN 33 H Creatinine 6.4 H D Glucose 122 H POC Glucose 127 H Calcium Phosphorus ALT C-Reactive Protein Total Protein Albumin PTH Pre-Incision PTH Post-Excision Miscellaneous Test
--- NOTE | 2017-06-27 11:19 | Progress Note ---
Assessment and Plan Impression: * ESRD * hypertension * s/p parathyroidectomy * Anemia in esrd * respiratory failure * Acute CVA * hypokalemia Plan: * hd q mwf * tums and calcitriol * iv calcium prn * increase k bath with hd, replete k and mag prn * cva workup in progress * uf as tolerated with hd * high calcium bath with hd * epogen with hd * strict i/os * follow up am l[facility] * hopefully to [facility] soon Subjective Date of service: 06/27/17 Principal diagnosis: ARM/MV/Post hyperparathy./ESRD Interval history: no new complaints Objective - Exam Narrative Exam: General appearance: Present: severe distress, obese - EENT Eyes: Present: PERRL ENT: hearing intact, clear oral mucosa - Neck Neck: Present: supple, normal ROM - Respiratory Respiratory effort: labored Respiratory: bilateral: diminished - Cardiovascular Heart Sounds: Present: S1 & S2. Absent: rub, click - Extremities Extremities: pulses symmetrical, No edema Extremity abnormal: edema Peripheral Pulses: within normal limits - Abdominal Female genitourinary: Present: normal - Integumentary Integumentary: Present: clear, warm, dry - Musculoskeletal Musculoskeletal: generalized weakness - Psychiatric Psychiatric: no intact judgment & insight, no memory intact, agitated - Neurologic Neurologic: CNII-XII intact, moves all extremities - Vital Signs Vital signs: Vital Signs - 12hr 06/27/17 06/27/17 06/27/17 00:00 00:09 00:40 Temperature 98.8 F Pulse Rate 78 Respiratory 21 27 H Rate Blood Pressure 111/50 O2 Sat by Pulse 99 99 Oximetry O2 Sat by Pulse 99 Oximetry [ Assessment] 06/27/17 06/27/17 06/27/17 01:00 02:00 03:00 Temperature Pulse Rate 77 77 71 Respiratory 25 H 20 19 Rate Blood Pressure 99/44 106/45 97/45 O2 Sat by Pulse 97 96 96 Oximetry O2 Sat by Pulse Oximetry [ Assessment] 06/27/17 06/27/17 06/27/17 04:00 04:45 05:00 Temperature 98.9 F Pulse Rate 76 77 Respiratory 25 H 18 19 Rate Blood Pressure 115/54 95/40 O2 Sat by Pulse 99 98 98 Oximetry O2 Sat by Pulse Oximetry [ Assessment] 06/27/17 06/27/17 06/27/17 06:00 07:00 07:53 Temperature 99.0 F Pulse Rate 82 77 Respiratory 21 20 Rate Blood Pressure 89/34 108/43 O2 Sat by Pulse 99 Oximetry O2 Sat by Pulse Oximetry [ Assessment] 06/27/17 09:39 Temperature Pulse Rate Respiratory Rate Blood Pressure O2 Sat by Pulse 94 Oximetry O2 Sat by Pulse 94 Oximetry [ Assessment] - Lab 06/27/17 04:32 06/27/17 04:32 Most recent lab results ABG pH 7.438 pH Units (7.350-7.450) 06/22/17 05:00 ABG pCO2 42.6 mm Hg 06/22/17 05:00 ABG pO2 110.7 mm Hg (80.0-90.0) H 06/22/17 05:00 ABG HCO3 28.2 mmol/L (20.0-26.0) H 06/22/17 05:00 ABG O2 Saturation 98.1 % (95.0-99.0) 06/22/17 05:00 Calcium 10.0 mg/dL (8.4-10.2) 06/27/17 04:32 Phosphorus 3.00 mg/dL (2.5-4.5) D 06/27/17 04:32 Magnesium 1.80 mg/dL (1.7-2.3) 06/26/17 05:21
[2017-06-28 05:24] LABS: Calcium 9.8 mg/dL (8.4-10.2); Chloride 93.9 mmol/L (98-107); Potassium 3.6 mmol/L (3.6-5.0)
[2017-06-28 05:26] LABS: Hematocrit 31.2 % (30.3-42.9); Hemoglobin 9.8 gm/dl (10.1-14.3); Mean Corpuscular HGB Conc 32 % (30-34); Mean Corpuscular Hemoglobin 24 pg (28-32); Mean Corpuscular Volume 77 fl (79-97); Red Blood Count 4.03 M/mm3 (3.65-5.03); White Blood Count 10.4 K/mm3 (4.5-11.0)
[2017-06-28 05:27] LABS: Platelet Count 289 K/mm3 (140-440)
[2017-06-28] MEDS: PROAMATINE PO SCH ×3 (05:41→21:59)
--- NOTE | 2017-06-28 08:57 | Progress Note ---
Assessment and Plan Acute respiratory failure, hypoxia/hypercapnea. Weaned successfully from ventilatory support. On T piece oxygen Hyperparathyroidism s/p parathyroidectomy Hypophospathemia. Corected Hypercalemia. Corrected Sepsis. Completing antibiotics. No fever. Occasional she secretions Morbid obesity ESRD Laryngeal edema/stridor. Resolved/tracheotomy Acute CVA. Left MCA stroke. Neurologically, she appears to be slowly improving , difficult to evaluate further Rec: Complete antibiotics. ID following, will leave to Dr. Beckwith length of treatment recommendations Monitor labs Continue oxygen support as needed Monitor secretions and suction as necessary Physical therapy Nutritional support Hemodialysis per nephrology Patient may be amenable for transfer today, if she continues to improve at this point. She will probably need long-term rehabilitation care No family at the bedside. Critical care time was 31 minutes minutes of [id number] evaluation coordination of care Subjective Date of service: 06/28/17 Principal diagnosis: ARM/MV/Post hyperparathy./ESRD Interval history: Alert, in no distress. T piece on. Appears to be aphasic Objective Vital Signs - 12hr 06/27/17 06/27/17 06/27/17 21:00 22:00 23:00 Temperature Pulse Rate 77 77 76 Respiratory 19 24 23 Rate Blood Pressure 85/49 100/51 93/51 O2 Sat by Pulse 98 98 99 Oximetry O2 Sat by Pulse Oximetry [ Assessment] 06/27/17 06/28/17 06/28/17 23:20 00:00 01:00 Temperature 98.1 F Pulse Rate 76 72 73 Respiratory 19 20 19 Rate Blood Pressure 93/51 100/52 102/58 O2 Sat by Pulse 98 99 97 Oximetry O2 Sat by Pulse Oximetry [ Assessment] 06/28/17 06/28/17 06/28/17 02:00 02:33 03:00 Temperature Pulse Rate 74 77 Respiratory 20 22 Rate Blood Pressure 94/55 93/49 O2 Sat by Pulse 97 98 Oximetry O2 Sat by Pulse 98 Oximetry [ Assessment] 06/28/17 06/28/17 06/28/17 04:00 05:00 06:00 Temperature 98.6 F Pulse Rate 78 77 79 Respiratory 20 17 18 Rate Blood Pressure 109/59 107/55 99/52 O2 Sat by Pulse 97 95 99 Oximetry O2 Sat by Pulse Oximetry [ Assessment] 06/28/17 06/28/17 07:00 08:00 Temperature 98.6 F Pulse Rate 75 72 Respiratory 15 17 Rate Blood Pressure 113/52 98/46 O2 Sat by Pulse 99 98 Oximetry O2 Sat by Pulse Oximetry [ Assessment] Constitutional: no acute distress, alert Eyes: non-icteric ENT: other (orally intubated) Neck: supple, no JVD, other (tracheotomy and position, no bleeding) Effort: normal Ascultation: Bilateral: clear, diminished breath sounds Percussion: Bilateral: not dull Cardiovascular: regular rate and rhythm Gastrointestinal: normoactive bowel sounds, soft, non-tender, non-distended, other Integumentary: normal Extremities: no cyanosis, no edema, pink and warm, edema Neurologic: other (open eyes spontaneously not following commands. She does follow me with her eyes and acknowledged some of my questions .Right hemiparesis ,GCS 5-6, ) Psychiatric: mood appropriate, affect normal CBC and BMP: 06/28/17 04:34 06/28/17 04:34 ABG, PT/INR, D-dimer: ABG POC ABG pH 7.441 (7.35-7.45) 06/24/17 13:15 ABG pH 7.438 pH Units (7.350-7.450) 06/22/17 05:00 POC ABG pCO2 43.9 (35-45) 06/24/17 13:15 ABG pCO2 42.6 mm Hg 06/22/17 05:00 POC ABG pO2 101 (80-105) 06/24/17 13:15 ABG pO2 110.7 mm Hg (80.0-90.0) H 06/22/17 05:00 POC ABG HCO3 29.9 06/24/17 13:15 POC ABG Total CO2 31 06/24/17 13:15 POC ABG O2 Sat 98 06/24/17 13:15 ABG O2 Saturation 98.1 % (95.0-99.0) 06/22/17 05:00 PT/INR, D-dimer PT 15.2 Sec. (12.2-14.9) H 06/21/17 05:45 INR 1.14 (0.87-1.13) H 06/21/17 05:45 Abnormal lab findings: Abnormal Labs 06/04/17 06/04/17 06/04/17 00:01 12:50 13:55 WBC 11.4 H RBC Hgb Hct POC Hct MCV 76 L MCH 23 L RDW 18.5 H Randolph % (Auto) Randolph # Seg Neutrophils % Seg Neuts % (Manual) 89.0 H Lymphocytes % (Manual) 6.0 L Monocytes % (Manual) Nucleated RBC % Seg Neutrophils # Seg Neutrophils # Man 10.1 H Lymphocytes # (Manual) 0.7 L Monocytes # (Manual) Eosinophils # (Manual) Basophils # (Manual) PT INR POC ABG pH ABG pH POC ABG pCO2 POC ABG pO2 ABG pO2 ABG HCO3 ABG O2 Saturation ABG Base Excess ABG Hemoglobin POC Sodium POC Potassium Sodium Potassium 5.1 H 5.2 H Chloride Carbon Dioxide POC BUN BUN 48 H Creatinine 6.2 H Glucose POC Glucose Calcium Phosphorus ALT C-Reactive Protein Total Protein Albumin PTH Pre-Incision PTH Post-Excision Miscellaneous Test 06/04/17 06/04/17 06/04/17 13:55 16:10 16:16 WBC RBC Hgb Hct POC Hct 37 L MCV MCH RDW [place] % (Auto) [place] # Seg Neutrophils % Seg Neuts % (Manual) Lymphocytes % (Manual) Monocytes % (Manual) Nucleated RBC % Seg Neutrophils # Seg Neutrophils # Man Lymphocytes # (Manual) Monocytes # (Manual) Eosinophils # (Manual) Basophils # (Manual) PT INR POC ABG pH 7.306 L ABG pH POC ABG pCO2 58.7 H POC ABG pO2 338 H ABG pO2 ABG HCO3 ABG O2 Saturation ABG Base Excess ABG Hemoglobin POC Sodium 135 L POC Potassium 5.2 H Sodium Potassium Chloride Carbon Dioxide POC BUN 44 H BUN Creatinine Glucose POC Glucose 183 H Calcium Phosphorus ALT C-Reactive Protein Total Protein Albumin PTH Pre-Incision 641.9 H PTH Post-Excision 154.7 H Miscellaneous Test 06/04/17 06/04/17 06/04/17 16:22 20:44 21:29 WBC RBC Hgb Hct POC Hct MCV MCH RDW [place] % (Auto) [place] # Seg Neutrophils % Seg Neuts % (Manual) Lymphocytes % (Manual) Monocytes % (Manual) Nucleated RBC % Seg Neutrophils # Seg Neutrophils # Man Lymphocytes # (Manual) Monocytes # (Manual) Eosinophils # (Manual) Basophils # (Manual) PT INR POC ABG pH 7.484 H ABG pH POC ABG pCO2 POC ABG pO2 ABG pO2 ABG HCO3 ABG O2 Saturation ABG Base Excess ABG Hemoglobin POC Sodium 137 L POC Potassium 5.3 H Sodium Potassium 5.2 H Chloride Carbon Dioxide POC BUN 45 H BUN 51 H Creatinine 6.5 H Glucose 119 H POC Glucose 176 H Calcium Phosphorus ALT C-Reactive Protein Total Protein Albumin PTH Pre-Incision PTH Post-Excision Miscellaneous Test 06/05/17 06/05/17 06/05/17 03:31 11:44 11:44 WBC 13.4 H RBC Hgb Hct POC Hct MCV 75 L MCH 23 L RDW 18.2 H [place] % (Auto) [place] # Seg Neutrophils % Seg Neuts % (Manual) Lymphocytes % (Manual) Monocytes % (Manual) Nucleated RBC % Seg Neutrophils # Seg Neutrophils # Man Lymphocytes # (Manual) Monocytes # (Manual) Eosinophils # (Manual) Basophils # (Manual) PT INR POC ABG pH ABG pH POC ABG pCO2 POC ABG pO2 75 L ABG pO2 ABG HCO3 ABG O2 Saturation ABG Base Excess ABG Hemoglobin POC Sodium POC Potassium Sodium Potassium 5.8 H Chloride Carbon Dioxide POC BUN BUN 56 H Creatinine 7.0 H Glucose 111 H POC Glucose Calcium 8.2 L Phosphorus ALT C-Reactive Protein Total Protein 6.2 L Albumin 3.1 L PTH Pre-Incision PTH Post-Excision Miscellaneous Test 06/06/17 06/06/17 06/07/17 05:07 07:13 03:53 WBC RBC Hgb Hct POC Hct MCV MCH RDW [place] % (Auto) [place] # Seg Neutrophils % Seg Neuts % (Manual) Lymphocytes % (Manual) Monocytes % (Manual) Nucleated RBC % Seg Neutrophils # Seg Neutrophils # Man Lymphocytes # (Manual) Monocytes # (Manual) Eosinophils # (Manual) Basophils # (Manual) PT INR POC ABG pH ABG pH POC ABG pCO2 POC ABG pO2 116 H 137 H ABG pO2 ABG HCO3 ABG O2 Saturation ABG Base Excess ABG Hemoglobin POC Sodium POC Potassium Sodium Potassium Chloride Carbon Dioxide POC BUN BUN 32 H Creatinine 4.9 H Glucose 115 H POC Glucose Calcium 7.9 L Phosphorus ALT C-Reactive Protein Total Protein 5.7 L Albumin 3.3 L PTH Pre-Incision PTH Post-Excision Miscellaneous Test 06/07/17 06/07/17 06/07/17 05:21 05:21 16:54 WBC RBC Hgb Hct POC Hct MCV 75 L MCH 24 L RDW 18.7 H [place] % (Auto) [place] # Seg Neutrophils % Seg Neuts % (Manual) Lymphocytes % (Manual) Monocytes % (Manual) Nucleated RBC % Seg Neutrophils # Seg Neutrophils # Man Lymphocytes # (Manual) Monocytes # (Manual) Eosinophils # (Manual) Basophils # (Manual) PT INR POC ABG pH ABG pH POC ABG pCO2 POC ABG pO2 ABG pO2 ABG HCO3 ABG O2 Saturation ABG Base Excess ABG Hemoglobin POC Sodium POC Potassium Sodium Potassium 5.4 H Chloride Carbon Dioxide POC BUN BUN 52 H Creatinine 6.2 H Glucose 107 H POC Glucose 110 H Calcium 8.0 L Phosphorus ALT C-Reactive Protein Total Protein Albumin PTH Pre-Incision PTH Post-Excision Miscellaneous Test 06/07/17 06/07/17 06/08/17 17:38 23:32 04:00 WBC RBC Hgb Hct POC Hct MCV 77 L MCH 23 L RDW 18.3 H [place] % (Auto) [place] # Seg Neutrophils % Seg Neuts % (Manual) 78.0 H Lymphocytes % (Manual) Monocytes % (Manual) Nucleated RBC % 3.0 H Seg Neutrophils # Seg Neutrophils # Man 7.8 H Lymphocytes # (Manual) Monocytes # (Manual) Eosinophils # (Manual) Basophils # (Manual) PT INR POC ABG pH 7.310 L ABG pH POC ABG pCO2 51.9 H POC ABG pO2 ABG pO2 ABG HCO3 ABG O2 Saturation ABG Base Excess ABG Hemoglobin POC Sodium POC Potassium Sodium Potassium Chloride Carbon Dioxide POC BUN BUN Creatinine Glucose POC Glucose 63 L Calcium Phosphorus ALT C-Reactive Protein Total Protein Albumin PTH Pre-Incision PTH Post-Excision Miscellaneous Test 06/08/17 06/08/17 06/08/17 04:00 10:51 11:25 WBC RBC Hgb Hct POC Hct MCV MCH RDW [place] % (Auto) [place] # Seg Neutrophils % Seg Neuts % (Manual) Lymphocytes % (Manual) Monocytes % (Manual) Nucleated RBC % Seg Neutrophils # Seg Neutrophils # Man Lymphocytes # (Manual) Monocytes # (Manual) Eosinophils # (Manual) Basophils # (Manual) PT INR POC ABG pH 7.336 L ABG pH POC ABG pCO2 55.1 H POC ABG pO2 ABG pO2 ABG HCO3 ABG O2 Saturation ABG Base Excess ABG Hemoglobin POC Sodium POC Potassium Sodium Potassium Chloride 96.9 L Carbon Dioxide POC BUN BUN 29 H Creatinine 4.6 H Glucose POC Glucose 108 H Calcium 8.3 L Phosphorus ALT C-Reactive Protein Total Protein Albumin PTH Pre-Incision PTH Post-Excision Miscellaneous Test 06/08/17 06/09/17 06/09/17 14:22 11:42 11:42 WBC RBC Hgb Hct POC Hct MCV 76 L MCH 24 L RDW 18.3 H [place] % (Auto) [place] # Seg Neutrophils % Seg Neuts % (Manual) 80.0 H Lymphocytes % (Manual) 10.0 L Monocytes % (Manual) Nucleated RBC % 2.0 H Seg Neutrophils # Seg Neutrophils # Man Lymphocytes # (Manual) 1.0 L Monocytes # (Manual) Eosinophils # (Manual) Basophils # (Manual) PT INR POC ABG pH ABG pH POC ABG pCO2 52.8 H POC ABG pO2 77 L ABG pO2 ABG HCO3 ABG O2 Saturation ABG Base Excess ABG Hemoglobin POC Sodium POC Potassium Sodium Potassium 5.4 H D Chloride 97.1 L Carbon Dioxide POC BUN BUN 58 H Creatinine 6.6 H Glucose POC Glucose Calcium 7.2 L Phosphorus ALT C-Reactive Protein Total Protein Albumin PTH Pre-Incision PTH Post-Excision Miscellaneous Test 06/09/17 06/10/17 06/10/17 12:04 03:29 03:29 WBC 13.7 H RBC Hgb Hct POC Hct MCV 77 L MCH 24 L RDW 17.9 H [place] % (Auto) [place] # Seg Neutrophils % Seg Neuts % (Manual) 82.0 H Lymphocytes % (Manual) 7.0 L Monocytes % (Manual) Nucleated RBC % 6.0 H Seg Neutrophils # Seg Neutrophils # Man 11.2 H Lymphocytes # (Manual) 1.0 L Monocytes # (Manual) Eosinophils # (Manual) Basophils # (Manual) PT INR POC ABG pH ABG pH POC ABG pCO2 POC ABG pO2 ABG pO2 ABG HCO3 ABG O2 Saturation ABG Base Excess ABG Hemoglobin POC Sodium POC Potassium Sodium Potassium Chloride 94.2 L Carbon Dioxide POC BUN BUN 32 H Creatinine 4.6 H Glucose 106 H POC Glucose 106 H Calcium 8.0 L Phosphorus ALT C-Reactive Protein Total Protein Albumin PTH Pre-Incision PTH Post-Excision Miscellaneous Test 06/10/17 06/11/17 06/11/17 05:27 06:00 06:00 WBC 11.8 H RBC Hgb Hct POC Hct MCV 77 L MCH 24 L RDW 18.3 H [place] % (Auto) Randolph # Seg Neutrophils % Seg Neuts % (Manual) 88.0 H Lymphocytes % (Manual) 7.0 L Monocytes % (Manual) Nucleated RBC % 1.0 H Seg Neutrophils # Seg Neutrophils # Man 10.4 H Lymphocytes # (Manual) 0.8 L Monocytes # (Manual) Eosinophils # (Manual) Basophils # (Manual) PT INR POC ABG pH ABG pH POC ABG pCO2 POC ABG pO2 ABG pO2 ABG HCO3 ABG O2 Saturation ABG Base Excess ABG Hemoglobin POC Sodium POC Potassium Sodium Potassium Chloride Carbon Dioxide POC BUN BUN 53 H Creatinine 6.0 H Glucose POC Glucose 106 H Calcium 6.3 L D Phosphorus ALT C-Reactive Protein Total Protein Albumin PTH Pre-Incision PTH Post-Excision Miscellaneous Test 06/11/17 06/11/17 06/11/17 06:51 12:10 16:54 WBC RBC Hgb Hct POC Hct MCV MCH RDW [place] % (Auto) [place] # Seg Neutrophils % Seg Neuts % (Manual) Lymphocytes % (Manual) Monocytes % (Manual) Nucleated RBC % Seg Neutrophils # Seg Neutrophils # Man Lymphocytes # (Manual) Monocytes # (Manual) Eosinophils # (Manual) Basophils # (Manual) PT INR POC ABG pH 7.556 H ABG pH POC ABG pCO2 34.8 L POC ABG pO2 125 H ABG pO2 ABG HCO3 ABG O2 Saturation ABG Base Excess ABG Hemoglobin POC Sodium POC Potassium Sodium Potassium Chloride Carbon Dioxide POC BUN BUN Creatinine Glucose POC Glucose 115 H 106 H Calcium Phosphorus ALT C-Reactive Protein Total Protein Albumin PTH Pre-Incision PTH Post-Excision Miscellaneous Test 06/11/17 06/12/17 06/12/17 20:20 00:06 04:20 WBC RBC Hgb Hct POC Hct MCV MCH RDW [place] % (Auto) [place] # Seg Neutrophils % Seg Neuts % (Manual) Lymphocytes % (Manual) Monocytes % (Manual) Nucleated RBC % Seg Neutrophils # Seg Neutrophils # Man Lymphocytes # (Manual) Monocytes # (Manual) Eosinophils # (Manual) Basophils # (Manual) PT INR POC ABG pH ABG pH 7.512 H 7.514 H POC ABG pCO2 POC ABG pO2 ABG pO2 148.5 H 209.1 H ABG HCO3 ABG O2 Saturation 99.3 H ABG Base Excess ABG Hemoglobin POC Sodium POC Potassium Sodium Potassium Chloride Carbon Dioxide POC BUN BUN Creatinine Glucose POC Glucose 108 H Calcium Phosphorus ALT C-Reactive Protein Total Protein Albumin PTH Pre-Incision PTH Post-Excision Miscellaneous Test 06/12/17 06/12/17 06/12/17 05:24 05:30 05:30 WBC 14.3 H RBC Hgb Hct POC Hct MCV 75 L MCH 24 L RDW 18.5 H [place] % (Auto) [place] # Seg Neutrophils % Seg Neuts % (Manual) 73.0 H Lymphocytes % (Manual) 6.0 L Monocytes % (Manual) 9.0 H Nucleated RBC % 1.0 H Seg Neutrophils # Seg Neutrophils # Man 10.4 H Lymphocytes # (Manual) 0.9 L Monocytes # (Manual) 1.3 H Eosinophils # (Manual) Basophils # (Manual) PT INR POC ABG pH ABG pH POC ABG pCO2 POC ABG pO2 ABG pO2 ABG HCO3 ABG O2 Saturation ABG Base Excess ABG Hemoglobin POC Sodium POC Potassium Sodium 131 L D Potassium Chloride 90.6 L Carbon Dioxide POC BUN BUN 51 H Creatinine 6.5 H Glucose POC Glucose 109 H Calcium Phosphorus ALT C-Reactive Protein Total Protein Albumin PTH Pre-Incision PTH Post-Excision Miscellaneous Test 06/12/17 06/13/17 06/13/17 11:46 04:15 04:55 WBC 17.9 H RBC Hgb Hct POC Hct MCV 75 L MCH 24 L RDW 18.5 H [place] % (Auto) [place] # Seg Neutrophils % Seg Neuts % (Manual) 75.0 H Lymphocytes % (Manual) 6.0 L Monocytes % (Manual) 9.0 H Nucleated RBC % Seg Neutrophils # Seg Neutrophils # Man 13.4 H Lymphocytes # (Manual) 1.1 L Monocytes # (Manual) 1.6 H Eosinophils # (Manual) 0.5 H Basophils # (Manual) 0.2 H PT INR POC ABG pH ABG pH POC ABG pCO2 POC ABG pO2 ABG pO2 131.0 H ABG HCO3 ABG O2 Saturation ABG Base Excess ABG Hemoglobin 10.5 L POC Sodium POC Potassium Sodium Potassium Chloride Carbon Dioxide POC BUN BUN Creatinine Glucose POC Glucose 116 H Calcium Phosphorus ALT C-Reactive Protein Total Protein Albumin PTH Pre-Incision PTH Post-Excision Miscellaneous Test 06/13/17 06/13/17 06/14/17 04:55 17:23 04:30 WBC 17.8 H RBC Hgb 9.7 L Hct POC Hct MCV 76 L MCH 24 L RDW 18.3 H [place] % (Auto) [place] # Seg Neutrophils % Seg Neuts % (Manual) 74.0 H Lymphocytes % (Manual) 6.0 L Monocytes % (Manual) 9.0 H Nucleated RBC % Seg Neutrophils # Seg Neutrophils # Man 13.2 H Lymphocytes # (Manual) 1.1 L Monocytes # (Manual) 1.6 H Eosinophils # (Manual) Basophils # (Manual) PT INR POC ABG pH ABG pH POC ABG pCO2 POC ABG pO2 ABG pO2 ABG HCO3 ABG O2 Saturation ABG Base Excess ABG Hemoglobin POC Sodium POC Potassium Sodium 128 L Potassium Chloride 88.9 L Carbon Dioxide POC BUN BUN 73 H Creatinine 7.6 H Glucose 115 H POC Glucose 113 H Calcium 8.1 L Phosphorus ALT C-Reactive Protein Total Protein Albumin PTH Pre-Incision PTH Post-Excision Miscellaneous Test 06/14/17 06/14/17 06/14/17 04:30 05:30 05:49 WBC RBC Hgb Hct POC Hct MCV MCH RDW [place] % (Auto) [place] # Seg Neutrophils % Seg Neuts % (Manual) Lymphocytes % (Manual) Monocytes % (Manual) Nucleated RBC % Seg Neutrophils # Seg Neutrophils # Man Lymphocytes # (Manual) Monocytes # (Manual) Eosinophils # (Manual) Basophils # (Manual) PT INR POC ABG pH ABG pH POC ABG pCO2 POC ABG pO2 ABG pO2 109.3 H ABG HCO3 ABG O2 Saturation ABG Base Excess ABG Hemoglobin 10.7 L POC Sodium POC Potassium Sodium 124 L Potassium Chloride 84.3 L Carbon Dioxide POC BUN BUN 86 H Creatinine 9.0 H Glucose 106 H POC Glucose 111 H Calcium 8.1 L Phosphorus ALT C-Reactive Protein Total Protein Albumin PTH Pre-Incision PTH Post-Excision Miscellaneous Test 06/14/17 06/14/17 06/14/17 12:27 16:05 23:35 WBC RBC Hgb Hct POC Hct MCV MCH RDW [place] % (Auto) [place] # Seg Neutrophils % Seg Neuts % (Manual) Lymphocytes % (Manual) Monocytes % (Manual) Nucleated RBC % Seg Neutrophils # Seg Neutrophils # Man Lymphocytes # (Manual) Monocytes # (Manual) Eosinophils # (Manual) Basophils # (Manual) PT INR POC ABG pH ABG pH POC ABG pCO2 POC ABG pO2 ABG pO2 ABG HCO3 ABG O2 Saturation ABG Base Excess ABG Hemoglobin POC Sodium POC Potassium Sodium Potassium Chloride Carbon Dioxide POC BUN BUN Creatinine Glucose POC Glucose 139 H 133 H 147 H Calcium Phosphorus ALT C-Reactive Protein Total Protein Albumin PTH Pre-Incision PTH Post-Excision Miscellaneous Test 06/15/17 06/15/17 06/15/17 05:05 06:00 06:00 WBC 21.4 H RBC Hgb 9.2 L Hct POC Hct MCV 77 L MCH 23 L RDW 18.8 H [place] % (Auto) [place] # Seg Neutrophils % Seg Neuts % (Manual) 86.0 H Lymphocytes % (Manual) 2.0 L Monocytes % (Manual) Nucleated RBC % 1.0 H Seg Neutrophils # Seg Neutrophils # Man 18.4 H Lymphocytes # (Manual) 0.4 L Monocytes # (Manual) 1.5 H Eosinophils # (Manual) Basophils # (Manual) PT INR POC ABG pH ABG pH POC ABG pCO2 POC ABG pO2 ABG pO2 ABG HCO3 ABG O2 Saturation ABG Base Excess ABG Hemoglobin POC Sodium POC Potassium Sodium 132 L D Potassium Chloride 91.5 L Carbon Dioxide POC BUN BUN 59 H Creatinine 6.6 H Glucose 116 H POC Glucose 145 H Calcium Phosphorus ALT C-Reactive Protein Total Protein Albumin PTH Pre-Incision PTH Post-Excision Miscellaneous Test 06/15/17 06/15/17 06/15/17 12:04 17:55 23:40 WBC RBC Hgb Hct POC Hct MCV MCH RDW [place] % (Auto) [place] # Seg Neutrophils % Seg Neuts % (Manual) Lymphocytes % (Manual) Monocytes % (Manual) Nucleated RBC % Seg Neutrophils # Seg Neutrophils # Man Lymphocytes # (Manual) Monocytes # (Manual) Eosinophils # (Manual) Basophils # (Manual) PT INR POC ABG pH ABG pH POC ABG pCO2 POC ABG pO2 ABG pO2 ABG HCO3 ABG O2 Saturation ABG Base Excess ABG Hemoglobin POC Sodium POC Potassium Sodium Potassium Chloride Carbon Dioxide POC BUN BUN Creatinine Glucose POC Glucose 109 H 119 H 123 H Calcium Phosphorus ALT C-Reactive Protein Total Protein Albumin PTH Pre-Incision PTH Post-Excision Miscellaneous Test 06/15/17 06/16/17 06/16/17 Unknown 06:00 08:45 WBC 21.9 H RBC Hgb 8.9 L Hct 29.0 L POC Hct MCV 77 L MCH 24 L RDW 18.1 H [place] % (Auto) 11.2 H Randolph # 1.6 H Seg Neutrophils % 82.8 H Seg Neuts % (Manual) 78.0 H Lymphocytes % (Manual) 3.0 L Monocytes % (Manual) 9.0 H Nucleated RBC % 1.0 H Seg Neutrophils # 12.2 H Seg Neutrophils # Man 17.1 H Lymphocytes # (Manual) 0.7 L Monocytes # (Manual) 2.0 H Eosinophils # (Manual) Basophils # (Manual) 0.2 H PT INR POC ABG pH ABG pH POC ABG pCO2 POC ABG pO2 ABG pO2 115.7 H ABG HCO3 27.6 H ABG O2 Saturation ABG Base Excess ABG Hemoglobin 9.2 L POC Sodium POC Potassium Sodium Potassium 2.7 L* D Chloride 111.6 H Carbon Dioxide 17 L D POC BUN BUN 52 H Creatinine 5.0 H Glucose POC Glucose Calcium 5.3 L* D Phosphorus ALT C-Reactive Protein Total Protein Albumin PTH Pre-Incision PTH Post-Excision Miscellaneous Test 06/16/17 06/16/17 06/16/17 09:25 11:00 12:07 WBC RBC Hgb Hct POC Hct MCV MCH RDW [place] % (Auto) [place] # Seg Neutrophils % Seg Neuts % (Manual) Lymphocytes % (Manual) Monocytes % (Manual) Nucleated RBC % Seg Neutrophils # Seg Neutrophils # Man Lymphocytes # (Manual) Monocytes # (Manual) Eosinophils # (Manual) Basophils # (Manual) PT INR POC ABG pH ABG pH POC ABG pCO2 POC ABG pO2 ABG pO2 102.0 H ABG HCO3 27.1 H ABG O2 Saturation ABG Base Excess ABG Hemoglobin 9.0 L POC Sodium POC Potassium Sodium Potassium Chloride 95.2 L Carbon Dioxide POC BUN BUN 60 H Creatinine 6.3 H Glucose 114 H POC Glucose 111 H Calcium 10.6 H D Phosphorus ALT C-Reactive Protein Total Protein Albumin PTH Pre-Incision PTH Post-Excision Miscellaneous Test 06/16/17 06/16/17 06/17/17 17:20 17:51 00:10 WBC RBC Hgb Hct POC Hct MCV MCH RDW [place] % (Auto) [place] # Seg Neutrophils % Seg Neuts % (Manual) Lymphocytes % (Manual) Monocytes % (Manual) Nucleated RBC % Seg Neutrophils # Seg Neutrophils # Man Lymphocytes # (Manual) Monocytes # (Manual) Eosinophils # (Manual) Basophils # (Manual) PT INR POC ABG pH ABG pH POC ABG pCO2 POC ABG pO2 ABG pO2 ABG HCO3 ABG O2 Saturation ABG Base Excess ABG Hemoglobin POC Sodium POC Potassium Sodium Potassium Chloride 97.4 L Carbon Dioxide POC BUN BUN 35 H Creatinine 4.4 H Glucose 116 H POC Glucose 128 H 114 H Calcium Phosphorus ALT C-Reactive Protein Total Protein Albumin PTH Pre-Incision PTH Post-Excision Miscellaneous Test 06/17/17 06/17/17 06/18/17 04:00 05:42 08:10 WBC 16.1 H RBC 3.55 L Hgb 8.4 L Hct 27.2 L POC Hct MCV 76 L MCH 24 L RDW 18.5 H [place] % (Auto) [place] # Seg Neutrophils % Seg Neuts % (Manual) Lymphocytes % (Manual) Monocytes % (Manual) Nucleated RBC % Seg Neutrophils # Seg Neutrophils # Man Lymphocytes # (Manual) Monocytes # (Manual) Eosinophils # (Manual) Basophils # (Manual) PT INR POC ABG pH ABG pH POC ABG pCO2 POC ABG pO2 ABG pO2 ABG HCO3 ABG O2 Saturation ABG Base Excess ABG Hemoglobin POC Sodium POC Potassium Sodium 136 L Potassium Chloride 94.5 L Carbon Dioxide POC BUN BUN 44 H Creatinine 5.3 H Glucose 107 H POC Glucose 110 H Calcium Phosphorus ALT C-Reactive Protein Total Protein Albumin PTH Pre-Incision PTH Post-Excision Miscellaneous Test 06/18/17 06/19/17 06/19/17 08:10 05:23 07:14 WBC 19.3 H RBC Hgb 9.2 L Hct 30.1 L POC Hct MCV 77 L MCH 23 L RDW 18.2 H [place] % (Auto) [place] # Seg Neutrophils % Seg Neuts % (Manual) Lymphocytes % (Manual) Monocytes % (Manual) Nucleated RBC % Seg Neutrophils # Seg Neutrophils # Man Lymphocytes # (Manual) Monocytes # (Manual) Eosinophils # (Manual) Basophils # (Manual) PT INR POC ABG pH ABG pH POC ABG pCO2 POC ABG pO2 ABG pO2 116.2 H ABG HCO3 28.5 H ABG O2 Saturation ABG Base Excess ABG Hemoglobin 9.1 L POC Sodium POC Potassium Sodium 134 L Potassium Chloride 91.6 L Carbon Dioxide POC BUN BUN 68 H Creatinine 7.2 H Glucose POC Glucose Calcium 10.3 H Phosphorus ALT 6 L C-Reactive Protein Total Protein 5.9 L Albumin 2.8 L PTH Pre-Incision PTH Post-Excision Miscellaneous Test 06/19/17 06/19/17 06/20/17 07:15 23:37 04:40 WBC RBC Hgb Hct POC Hct MCV MCH RDW [place] % (Auto) [place] # Seg Neutrophils % Seg Neuts % (Manual) Lymphocytes % (Manual) Monocytes % (Manual) Nucleated RBC % Seg Neutrophils # Seg Neutrophils # Man Lymphocytes # (Manual) Monocytes # (Manual) Eosinophils # (Manual) Basophils # (Manual) PT INR POC ABG pH ABG pH POC ABG pCO2 POC ABG pO2 ABG pO2 ABG HCO3 ABG O2 Saturation ABG Base Excess ABG Hemoglobin POC Sodium POC Potassium Sodium 135 L Potassium Chloride 94.3 L Carbon Dioxide POC BUN BUN 41 H Creatinine 5.4 H Glucose 117 H POC Glucose 152 H 140 H Calcium 10.3 H Phosphorus ALT C-Reactive Protein Total Protein Albumin PTH Pre-Incision PTH Post-Excision Miscellaneous Test 06/21/17 06/21/17 06/21/17 05:13 05:45 05:45 WBC 18.8 H RBC 3.54 L Hgb 8.2 L Hct 27.6 L POC Hct MCV 78 L MCH 23 L RDW 18.6 H Randolph % (Auto) Randolph # Seg Neutrophils % Seg Neuts % (Manual) Lymphocytes % (Manual) Monocytes % (Manual) Nucleated RBC % Seg Neutrophils # Seg Neutrophils # Man Lymphocytes # (Manual) Monocytes # (Manual) Eosinophils # (Manual) Basophils # (Manual) PT 15.2 H INR 1.14 H POC ABG pH ABG pH POC ABG pCO2 POC ABG pO2 ABG pO2 ABG HCO3 ABG O2 Saturation ABG Base Excess ABG Hemoglobin POC Sodium POC Potassium Sodium Potassium Chloride Carbon Dioxide POC BUN BUN Creatinine Glucose POC Glucose 140 H Calcium Phosphorus ALT C-Reactive Protein Total Protein Albumin PTH Pre-Incision PTH Post-Excision Miscellaneous Test 06/21/17 06/21/17 06/21/17 05:45 08:28 08:28 WBC RBC Hgb Hct POC Hct MCV MCH RDW Randolph % (Auto) Randolph # Seg Neutrophils % Seg Neuts % (Manual) Lymphocytes % (Manual) Monocytes % (Manual) Nucleated RBC % Seg Neutrophils # Seg Neutrophils # Man Lymphocytes # (Manual) Monocytes # (Manual) Eosinophils # (Manual) Basophils # (Manual) PT INR POC ABG pH ABG pH POC ABG pCO2 POC ABG pO2 ABG pO2 ABG HCO3 ABG O2 Saturation ABG Base Excess ABG Hemoglobin POC Sodium POC Potassium Sodium Potassium Chloride 95.5 L Carbon Dioxide POC BUN BUN 38 H Creatinine 4.8 H Glucose 126 H POC Glucose Calcium Phosphorus ALT C-Reactive Protein 13.60 H Total Protein Albumin PTH Pre-Incision PTH Post-Excision Miscellaneous Test Flexitest 1 H 06/21/17 06/22/17 06/22/17 23:21 04:53 05:00 WBC RBC Hgb Hct POC Hct MCV MCH RDW [place] % (Auto) [place] # Seg Neutrophils % Seg Neuts % (Manual) Lymphocytes % (Manual) Monocytes % (Manual) Nucleated RBC % Seg Neutrophils # Seg Neutrophils # Man Lymphocytes # (Manual) Monocytes # (Manual) Eosinophils # (Manual) Basophils # (Manual) PT INR POC ABG pH ABG pH POC ABG pCO2 POC ABG pO2 ABG pO2 110.7 H ABG HCO3 28.2 H ABG O2 Saturation ABG Base Excess 3.7 H ABG Hemoglobin 8.9 L POC Sodium POC Potassium Sodium Potassium Chloride Carbon Dioxide POC BUN BUN Creatinine Glucose POC Glucose 117 H 111 H Calcium Phosphorus ALT C-Reactive Protein Total Protein Albumin PTH Pre-Incision PTH Post-Excision Miscellaneous Test 06/22/17 06/22/17 06/22/17 11:49 11:59 11:59 WBC 15.4 H RBC Hgb 8.6 L Hct 28.4 L POC Hct MCV 77 L MCH 23 L RDW 18.4 H [place] % (Auto) [place] # Seg Neutrophils % Seg Neuts % (Manual) Lymphocytes % (Manual) Monocytes % (Manual) Nucleated RBC % Seg Neutrophils # Seg Neutrophils # Man Lymphocytes # (Manual) Monocytes # (Manual) Eosinophils # (Manual) Basophils # (Manual) PT INR POC ABG pH ABG pH POC ABG pCO2 POC ABG pO2 ABG pO2 ABG HCO3 ABG O2 Saturation ABG Base Excess ABG Hemoglobin POC Sodium POC Potassium Sodium Potassium Chloride Carbon Dioxide POC BUN BUN 25 H Creatinine 4.2 H Glucose 101 H POC Glucose 123 H Calcium Phosphorus ALT C-Reactive Protein Total Protein Albumin PTH Pre-Incision PTH Post-Excision Miscellaneous Test 06/23/17 06/23/17 06/23/17 02:49 02:49 04:45 WBC 12.1 H RBC 3.53 L Hgb 8.4 L Hct 27.2 L POC Hct MCV 77 L MCH 24 L RDW 18.5 H [place] % (Auto) [place] # Seg Neutrophils % Seg Neuts % (Manual) Lymphocytes % (Manual) Monocytes % (Manual) Nucleated RBC % Seg Neutrophils # Seg Neutrophils # Man Lymphocytes # (Manual) Monocytes # (Manual) Eosinophils # (Manual) Basophils # (Manual) PT INR POC ABG pH 7.530 H ABG pH POC ABG pCO2 34.7 L POC ABG pO2 136 H ABG pO2 ABG HCO3 ABG O2 Saturation ABG Base Excess ABG Hemoglobin POC Sodium POC Potassium Sodium Potassium Chloride Carbon Dioxide POC BUN BUN 36 H Creatinine 5.6 H Glucose POC Glucose Calcium Phosphorus ALT C-Reactive Protein Total Protein Albumin PTH Pre-Incision PTH Post-Excision Miscellaneous Test 06/23/17 06/23/17 06/24/17 19:16 21:09 05:02 WBC RBC Hgb Hct POC Hct MCV MCH RDW [place] % (Auto) [place] # Seg Neutrophils % Seg Neuts % (Manual) Lymphocytes % (Manual) Monocytes % (Manual) Nucleated RBC % Seg Neutrophils # Seg Neutrophils # Man Lymphocytes # (Manual) Monocytes # (Manual) Eosinophils # (Manual) Basophils # (Manual) PT INR POC ABG pH 7.511 H ABG pH POC ABG pCO2 POC ABG pO2 111 H ABG pO2 ABG HCO3 ABG O2 Saturation ABG Base Excess ABG Hemoglobin POC Sodium POC Potassium Sodium Potassium Chloride Carbon Dioxide POC BUN BUN Creatinine Glucose POC Glucose Calcium 10.8 H D Phosphorus 1.70 L 1.90 L ALT C-Reactive Protein Total Protein Albumin PTH Pre-Incision PTH Post-Excision Miscellaneous Test 06/24/17 06/24/17 06/24/17 05:04 05:04 05:29 WBC 14.0 H RBC Hgb 9.5 L Hct 29.9 L POC Hct MCV 77 L MCH 24 L RDW 18.4 H [place] % (Auto) [place] # Seg Neutrophils % Seg Neuts % (Manual) Lymphocytes % (Manual) Monocytes % (Manual) Nucleated RBC % Seg Neutrophils # Seg Neutrophils # Man Lymphocytes # (Manual) Monocytes # (Manual) Eosinophils # (Manual) Basophils # (Manual) PT INR POC ABG pH ABG pH POC ABG pCO2 POC ABG pO2 ABG pO2 ABG HCO3 ABG O2 Saturation ABG Base Excess ABG Hemoglobin POC Sodium POC Potassium Sodium Potassium Chloride 94.8 L Carbon Dioxide POC BUN BUN 26 H Creatinine 4.4 H Glucose 106 H POC Glucose 124 H Calcium 10.8 H Phosphorus ALT C-Reactive Protein Total Protein Albumin PTH Pre-Incision PTH Post-Excision Miscellaneous Test 06/25/17 06/25/17 06/25/17 03:37 03:37 11:47 WBC 13.4 H RBC Hgb 9.2 L Hct 29.5 L POC Hct MCV 77 L MCH 24 L RDW 19.0 H [place] % (Auto) [place] # Seg Neutrophils % Seg Neuts % (Manual) Lymphocytes % (Manual) Monocytes % (Manual) Nucleated RBC % Seg Neutrophils # Seg Neutrophils # Man Lymphocytes # (Manual) Monocytes # (Manual) Eosinophils # (Manual) Basophils # (Manual) PT INR POC ABG pH ABG pH POC ABG pCO2 POC ABG pO2 ABG pO2 ABG HCO3 ABG O2 Saturation ABG Base Excess ABG Hemoglobin POC Sodium POC Potassium Sodium 133 L Potassium 3.4 L Chloride 90.7 L Carbon Dioxide POC BUN BUN 40 H Creatinine 6.4 H Glucose POC Glucose 119 H Calcium Phosphorus ALT C-Reactive Protein Total Protein Albumin PTH Pre-Incision PTH Post-Excision Miscellaneous Test 06/26/17 06/26/17 06/26/17 05:21 05:21 05:21 WBC 13.1 H RBC Hgb 9.7 L Hct POC Hct MCV 76 L MCH 24 L RDW 18.4 H [place] % (Auto) [place] # Seg Neutrophils % Seg Neuts % (Manual) Lymphocytes % (Manual) Monocytes % (Manual) Nucleated RBC % Seg Neutrophils # Seg Neutrophils # Man Lymphocytes # (Manual) Monocytes # (Manual) Eosinophils # (Manual) Basophils # (Manual) PT INR POC ABG pH ABG pH POC ABG pCO2 POC ABG pO2 ABG pO2 ABG HCO3 ABG O2 Saturation ABG Base Excess ABG Hemoglobin POC Sodium POC Potassium Sodium Potassium 3.2 L Chloride 95.5 L Carbon Dioxide POC BUN BUN 19 H Creatinine 4.2 H Glucose 127 H POC Glucose Calcium Phosphorus 2.10 L D ALT C-Reactive Protein Total Protein Albumin PTH Pre-Incision PTH Post-Excision Miscellaneous Test 06/26/17 06/26/17 06/26/17 11:53 18:09 23:57 WBC RBC Hgb Hct POC Hct MCV MCH RDW [place] % (Auto) [place] # Seg Neutrophils % Seg Neuts % (Manual) Lymphocytes % (Manual) Monocytes % (Manual) Nucleated RBC % Seg Neutrophils # Seg Neutrophils # Man Lymphocytes # (Manual) Monocytes # (Manual) Eosinophils # (Manual) Basophils # (Manual) PT INR POC ABG pH ABG pH POC ABG pCO2 POC ABG pO2 ABG pO2 ABG HCO3 ABG O2 Saturation ABG Base Excess ABG Hemoglobin POC Sodium POC Potassium Sodium Potassium Chloride Carbon Dioxide POC BUN BUN Creatinine Glucose POC Glucose 115 H 124 H 109 H Calcium Phosphorus ALT C-Reactive Protein Total Protein Albumin PTH Pre-Incision PTH Post-Excision Miscellaneous Test 06/27/17 06/27/17 06/27/17 04:32 04:32 05:36 WBC 14.1 H RBC Hgb 9.5 L Hct POC Hct MCV 78 L MCH 24 L RDW 18.4 H [place] % (Auto) [place] # Seg Neutrophils % Seg Neuts % (Manual) Lymphocytes % (Manual) Monocytes % (Manual) Nucleated RBC % Seg Neutrophils # Seg Neutrophils # Man Lymphocytes # (Manual) Monocytes # (Manual) Eosinophils # (Manual) Basophils # (Manual) PT INR POC ABG pH ABG pH POC ABG pCO2 POC ABG pO2 ABG pO2 ABG HCO3 ABG O2 Saturation ABG Base Excess ABG Hemoglobin POC Sodium POC Potassium Sodium Potassium 3.3 L Chloride 94.5 L Carbon Dioxide POC BUN BUN 33 H Creatinine 6.4 H D Glucose 122 H POC Glucose 127 H Calcium Phosphorus ALT C-Reactive Protein Total Protein Albumin PTH Pre-Incision PTH Post-Excision Miscellaneous Test 06/27/17 06/27/17 06/28/17 12:50 17:54 04:34 WBC RBC Hgb 9.8 L Hct POC Hct MCV 77 L MCH 24 L RDW 19.0 H [place] % (Auto) [place] # Seg Neutrophils % Seg Neuts % (Manual) Lymphocytes % (Manual) Monocytes % (Manual) Nucleated RBC % Seg Neutrophils # Seg Neutrophils # Man Lymphocytes # (Manual) Monocytes # (Manual) Eosinophils # (Manual) Basophils # (Manual) PT INR POC ABG pH ABG pH POC ABG pCO2 POC ABG pO2 ABG pO2 ABG HCO3 ABG O2 Saturation ABG Base Excess ABG Hemoglobin POC Sodium POC Potassium Sodium Potassium Chloride Carbon Dioxide POC BUN BUN Creatinine Glucose POC Glucose 126 H 111 H Calcium Phosphorus ALT C-Reactive Protein Total Protein Albumin PTH Pre-Incision PTH Post-Excision Miscellaneous Test 06/28/17 06/28/17 04:34 05:59 WBC RBC Hgb Hct POC Hct MCV MCH RDW [place] % (Auto) [place] # Seg Neutrophils % Seg Neuts % (Manual) Lymphocytes % (Manual) Monocytes % (Manual) Nucleated RBC % Seg Neutrophils # Seg Neutrophils # Man Lymphocytes # (Manual) Monocytes # (Manual) Eosinophils # (Manual) Basophils # (Manual) PT INR POC ABG pH ABG pH POC ABG pCO2 POC ABG pO2 ABG pO2 ABG HCO3 ABG O2 Saturation ABG Base Excess ABG Hemoglobin POC Sodium POC Potassium Sodium Potassium Chloride 93.9 L Carbon Dioxide POC BUN BUN 48 H Creatinine 8.6 H Glucose 110 H POC Glucose 138 H Calcium Phosphorus ALT C-Reactive Protein Total Protein Albumin PTH Pre-Incision PTH Post-Excision Miscellaneous Test
[2017-06-28] MEDS ORDERED: NACL 0.9% 1000 ML 2,000 ML ONE (09:44)
--- NOTE | 2017-06-28 09:53 | Progress Note ---
Assessment and Plan Impression: * ESRD * hypertension * s/p parathyroidectomy * Anemia in esrd * respiratory failure * Acute CVA * hypokalemia Plan: * hd q mwf * tums and calcitriol * iv calcium prn * increase k bath with hd, replete k and mag prn * cva workup in progress * uf as tolerated with hd * high calcium bath with hd * epogen with hd * strict i/os * follow up am lytes * hopefully to ltac soon Subjective Date of service: 06/28/17 Principal diagnosis: ARM/MV/Post hyperparathy./ESRD Interval history: no new complaints Objective - Exam Narrative Exam: General appearance: Present: severe distress, obese - EENT Eyes: Present: PERRL ENT: hearing intact, clear oral mucosa - Neck Neck: Present: supple, normal ROM - Respiratory Respiratory effort: labored Respiratory: bilateral: diminished - Cardiovascular Heart Sounds: Present: S1 & S2. Absent: rub, click - Extremities Extremities: pulses symmetrical, No edema Extremity abnormal: edema Peripheral Pulses: within normal limits - Abdominal Female genitourinary: Present: normal - Integumentary Integumentary: Present: clear, warm, dry - Musculoskeletal Musculoskeletal: generalized weakness - Psychiatric Psychiatric: no intact judgment & insight, no memory intact, agitated - Neurologic Neurologic: CNII-XII intact, moves all extremities - Vital Signs Vital signs: Vital Signs - 12hr 06/27/17 06/27/17 06/27/17 22:00 23:00 23:20 Temperature Pulse Rate 77 76 76 Respiratory 24 23 19 Rate Blood Pressure 100/51 93/51 93/51 O2 Sat by Pulse 98 99 98 Oximetry O2 Sat by Pulse Oximetry [ Anterior Bilateral Throughout] O2 Sat by Pulse Oximetry [ Assessment] 06/28/17 06/28/17 06/28/17 00:00 01:00 02:00 Temperature 98.1 F Pulse Rate 72 73 74 Respiratory 20 19 20 Rate Blood Pressure 100/52 102/58 94/55 O2 Sat by Pulse 99 97 97 Oximetry O2 Sat by Pulse Oximetry [ Anterior Bilateral Throughout] O2 Sat by Pulse Oximetry [ Assessment] 06/28/17 06/28/17 06/28/17 02:33 03:00 04:00 Temperature 98.6 F Pulse Rate 77 78 Respiratory 22 20 Rate Blood Pressure 93/49 109/59 O2 Sat by Pulse 98 97 Oximetry O2 Sat by Pulse Oximetry [ Anterior Bilateral Throughout] O2 Sat by Pulse 98 Oximetry [ Assessment] 06/28/17 06/28/17 06/28/17 05:00 06:00 07:00 Temperature Pulse Rate 77 79 75 Respiratory 17 18 15 Rate Blood Pressure 107/55 99/52 113/52 O2 Sat by Pulse 95 99 99 Oximetry O2 Sat by Pulse Oximetry [ Anterior Bilateral Throughout] O2 Sat by Pulse Oximetry [ Assessment] 06/28/17 06/28/17 06/28/17 08:00 08:50 09:00 Temperature 98.6 F Pulse Rate 72 69 72 Respiratory 17 Rate Blood Pressure 98/46 113/55 104/49 O2 Sat by Pulse 98 Oximetry O2 Sat by Pulse Oximetry [ Anterior Bilateral Throughout] O2 Sat by Pulse Oximetry [ Assessment] 06/28/17 06/28/17 06/28/17 09:15 09:17 09:30 Temperature 98.8 F Pulse Rate 77 73 74 Respiratory 19 Rate Blood Pressure 103/48 109/54 98/48 O2 Sat by Pulse Oximetry O2 Sat by Pulse 99 Oximetry [ Anterior Bilateral Throughout] O2 Sat by Pulse Oximetry [ Assessment] 06/28/17 09:45 Temperature Pulse Rate 75 Respiratory Rate Blood Pressure 101/47 O2 Sat by Pulse Oximetry O2 Sat by Pulse Oximetry [ Anterior Bilateral Throughout] O2 Sat by Pulse Oximetry [ Assessment] - Lab 06/28/17 04:34 06/28/17 04:34 Most recent lab results ABG pH 7.438 pH Units (7.350-7.450) 06/22/17 05:00 ABG pCO2 42.6 mm Hg 06/22/17 05:00 ABG pO2 110.7 mm Hg (80.0-90.0) H 06/22/17 05:00 ABG HCO3 28.2 mmol/L (20.0-26.0) H 06/22/17 05:00 ABG O2 Saturation 98.1 % (95.0-99.0) 06/22/17 05:00 Calcium 9.8 mg/dL (8.4-10.2) 06/28/17 04:34 Phosphorus 3.00 mg/dL (2.5-4.5) D 06/27/17 04:32 Magnesium 1.80 mg/dL (1.7-2.3) 06/26/17 05:21
[2017-06-28] MEDS: PEPCID PO SCH (10:00)
--- NOTE | 2017-06-28 10:15 | Progress Note ---
Assessment and Plan Assessment and plan: Acute hypoxic respiratory failure on mechanical ventilation more than 96 hours re-intubated, continue vent and s/p trach on 06/21/17 cont periodic breathing treatment, pulmonary following Acute left MCA stroke with right-sided weakness MRI brain showed large left MCA acute infarct Continue Aspirin and statin Vascular surgery consulted no intervention needed received mannitol for IC edema Sepsis May have Aspiration pneumonia which is obscured by pulmonary edema Blood cultures reviewed growing Proteus mirabilis Sputum culture also with proteus mirabilis Now on Ceftriaxone Metabolic Enchephalopathy due to stroke, s/p mannitol Status post subtotal parathyroidectomy Continue postop care per surgery continue to replete calcium as needed End-stage renal disease on hemodialysis Continue hemodialysis as scheduled per nephrology Hyperkalemia Now resolved. Hypertension Continue prn medication History of breast cancer status post mastectomy Stable Morbid obesity with BMI > 40 Nutrition input appreciated Moderate malnutrition continue tube feeds Hyponatremia Now resolved, Sodium 139. Hypotension, persisting Continue Midodrine 5mg Q 8h CT Abd/Pelvis negative for intra-abdominal abscess. Discussed with Aunt at bedside few days ago. History Interval history: Patient still intubated no more fever for over 1 week Hospitalist Physical - Physical exam Narrative exam: Gen Appearance: Not in acute distress, morbidly obese HEENT: normocephalic, atraumatic Neck: supple, no JVD Lungs: clear to auscultation bilaterally, no crackles or wheezes Heart: S1 and S2 regular, no murmurs, rubs or gallop Abdomen: Soft , non tender, non distended, PEG tube, normal bowel sounds Extremity: No edema, clubbing or cyanosis Neuro : Tracheostomy, sedated - Constitutional Vitals: Temp Pulse Resp BP Pulse Ox 98.8 F 75 19 99/53 99 06/28/17 09:17 06/28/17 10:00 06/28/17 09:17 06/28/17 10:00 06/28/17 09:17 General appearance: Present: no acute distress, other (withdrawn, nonverbal) Results - Labs CBC & Chem 7: 06/28/17 04:34 06/28/17 04:34 Labs: Laboratory Last Values WBC 10.4 K/mm3 (4.5-11.0) 06/28/17 04:34 RBC 4.03 M/mm3 (3.65-5.03) 06/28/17 04:34 Hgb 9.8 gm/dl (10.1-14.3) L 06/28/17 04:34 POC Hgb 14.3 (12-17) 06/04/17 16:22 Hct 31.2 % (30.3-42.9) 06/28/17 04:34 POC Hct 42 (38-51) 06/04/17 16:22 MCV 77 fl (79-97) L 06/28/17 04:34 MCH 24 pg (28-32) L 06/28/17 04:34 MCHC 32 % (30-34) 06/28/17 04:34 RDW 19.0 % (13.2-15.2) H 06/28/17 04:34 Plt Count 289 K/mm3 (140-440) 06/28/17 04:34 [place] % (Auto) 11.2 % (0.0-7.3) H 06/16/17 08:45 Eos % (Auto) 1.4 % (0.0-4.3) 06/16/17 08:45 [place] # 1.6 K/mm3 (0.0-0.8) H 06/16/17 08:45 Eos # 0.2 K/mm3 (0.0-0.4) 06/16/17 08:45 Baso # 0.1 K/mm3 (0.0-0.1) 06/16/17 08:45 Add Manual Diff Complete 06/16/17 08:45 Total Counted 100 06/16/17 08:45 Seg Neutrophils % 82.8 % (40.0-70.0) H 06/16/17 08:45 Seg Neuts % (Manual) 78.0 % (40.0-70.0) H 06/16/17 08:45 Band Neutrophils % 1.0 % 06/16/17 08:45 Lymphocytes % (Manual) 3.0 % (13.4-35.0) L 06/16/17 08:45 Reactive Lymphs % (Man) 0 % 06/16/17 08:45 Monocytes % (Manual) 9.0 % (0.0-7.3) H 06/16/17 08:45 Eosinophils % (Manual) 2.0 % (0.0-4.3) 06/16/17 08:45 Basophils % (Manual) 1.0 % (0.0-1.8) 06/16/17 08:45 Metamyelocytes % 6.0 % 06/16/17 08:45 Myelocytes % 0 % 06/16/17 08:45 Promyelocytes % 0 % 06/16/17 08:45 Blast Cells % 0 % 06/16/17 08:45 Nucleated RBC % 1.0 % (0.0-0.9) H 06/16/17 08:45 Seg Neutrophils # 12.2 K/mm3 (1.8-7.7) H 06/16/17 08:45 Seg Neutrophils # Man 17.1 K/mm3 (1.8-7.7) H 06/16/17 08:45 Band Neutrophils # 0.2 K/mm3 06/16/17 08:45 Lymphocytes # (Manual) 0.7 K/mm3 (1.2-5.4) L 06/16/17 08:45 Abs React Lymphs (Man) 0.0 K/mm3 06/16/17 08:45 Monocytes # (Manual) 2.0 K/mm3 (0.0-0.8) H 06/16/17 08:45 Eosinophils # (Manual) 0.4 K/mm3 (0.0-0.4) 06/16/17 08:45 Basophils # (Manual) 0.2 K/mm3 (0.0-0.1) H 06/16/17 08:45 Metamyelocytes # 1.3 K/mm3 06/16/17 08:45 Myelocytes # 0.0 K/mm3 06/16/17 08:45 Promyelocytes # 0.0 K/mm3 06/16/17 08:45 Blast Cells # 0.0 K/mm3 06/16/17 08:45 WBC Morphology Not Reportable 06/16/17 08:45 Hypersegmented Neuts Not Reportable 06/16/17 08:45 Hyposegmented Neuts Not Reportable 06/16/17 08:45 Hypogranular Neuts Not Reportable 06/16/17 08:45 Smudge Cells Not Reportable 06/16/17 08:45 Toxic Granulation Not Reportable 06/16/17 08:45 Toxic Vacuolation Not Reportable 06/16/17 08:45 Dohle Bodies Not Reportable 06/16/17 08:45 Pelger-Huet Anomaly Not Reportable 06/16/17 08:45 Sunita Rods Not Reportable 06/16/17 08:45 Platelet Estimate Cons 06/16/17 08:45 Clumped Platelets Not Reportable 06/16/17 08:45 Plt Clumps, EDTA Not Reportable 06/16/17 08:45 Large Platelets Not Reportable 06/16/17 08:45 Giant Platelets Not Reportable 06/16/17 08:45 Platelet Satelliting Not Reportable 06/16/17 08:45 Plt Morphology Comment Not Reportable 06/16/17 08:45 RBC Morphology Not Reportable 06/16/17 08:45 Dimorphic RBCs Not Reportable 06/16/17 08:45 Polychromasia Not Reportable 06/16/17 08:45 Hypochromasia 2+ 06/16/17 08:45 Poikilocytosis Not Reportable 06/16/17 08:45 Anisocytosis Not Reportable 06/16/17 08:45 Microcytosis 1+ 06/16/17 08:45 Macrocytosis Not Reportable 06/16/17 08:45 Spherocytes Not Reportable 06/16/17 08:45 Pappenheimer Bodies Not Reportable 06/16/17 08:45 Sickle Cells Not Reportable 06/16/17 08:45 Target Cells Not Reportable 06/16/17 08:45 Tear Drop Cells Few 06/16/17 08:45 Ovalocytes Not Reportable 06/16/17 08:45 Helmet Cells Not Reportable 06/16/17 08:45 Ramos-Parksdale Bodies Not Reportable 06/16/17 08:45 [place]a Rings Not Reportable 06/16/17 08:45 Donaldo Cells Not Reportable 06/16/17 08:45 Bite Cells Not Reportable 06/16/17 08:45 Crenated Cell Not Reportable 06/16/17 08:45 Elliptocytes Not Reportable 06/16/17 08:45 Acanthocytes (Spur) Not Reportable 06/16/17 08:45 Rouleaux Not Reportable 06/16/17 08:45 Hemoglobin C Crystals Not Reportable 06/16/17 08:45 Schistocytes Few 06/16/17 08:45 Malaria parasites Not Reportable 06/16/17 08:45 Williams Bodies Not Reportable 06/16/17 08:45 Hem Pathologist Commnt No 06/16/17 08:45 PT 15.2 Sec. (12.2-14.9) H 06/21/17 05:45 INR 1.14 (0.87-1.13) H 06/21/17 05:45 APTT 29.9 Sec. (24.2-36.6) 06/09/17 16:55 POC ABG pH 7.441 (7.35-7.45) 06/24/17 13:15 ABG pH 7.438 pH Units (7.350-7.450) 06/22/17 05:00 POC ABG pCO2 43.9 (35-45) 06/24/17 13:15 ABG pCO2 42.6 mm Hg 06/22/17 05:00 POC ABG pO2 101 (80-105) 06/24/17 13:15 ABG pO2 110.7 mm Hg (80.0-90.0) H 06/22/17 05:00 POC ABG HCO3 29.9 06/24/17 13:15 ABG HCO3 28.2 mmol/L (20.0-26.0) H 06/22/17 05:00 POC ABG Total CO2 31 06/24/17 13:15 POC ABG O2 Sat 98 06/24/17 13:15 ABG O2 Saturation 98.1 % (95.0-99.0) 06/22/17 05:00 ABG O2 Content 12.3 (0.0-44) 06/22/17 05:00 POC ABG Base Excess 6 06/24/17 13:15 ABG Base Excess 3.7 mmol/L (-2.0-3.0) H 06/22/17 05:00 ABG Hemoglobin 8.9 gm/dl (12.0-16.0) L 06/22/17 05:00 ABG Carboxyhemoglobin 1.7 % (0.0-5.0) 06/22/17 05:00 ABG Methemoglobin 0.3 % (0.0-1.5) 06/22/17 05:00 Oxyhemoglobin 96.1 % (95.0-99.0) 06/22/17 05:00 POC Sodium 137 mmol/L (138-146) L 06/04/17 16:22 POC Potassium 5.3 (3.5-4.9) H 06/04/17 16:22 POC Chloride 102 (98-109) 06/04/17 16:22 FiO2 30 % 06/24/17 13:15 Sodium 140 mmol/L (137-145) 06/28/17 04:34 Potassium 3.6 mmol/L (3.6-5.0) 06/28/17 04:34 Chloride 93.9 mmol/L (98-107) L 06/28/17 04:34 Carbon Dioxide 28 mmol/L (22-30) 06/28/17 04:34 Anion Gap 22 mmol/L 06/28/17 04:34 POC BUN 45 mg/dl (8-26) H 06/04/17 16:22 BUN 48 mg/dL (7-17) H 06/28/17 04:34 Creatinine 8.6 mg/dL (0.7-1.2) H 06/28/17 04:34 Estimated GFR 6 ml/min 06/28/17 04:34 BUN/Creatinine Ratio 6 % 06/28/17 04:34 Glucose 110 mg/dL (65-100) H 06/28/17 04:34 POC Glucose 138 (70-105) H 06/28/17 05:59 Osmolality 312 Mosm/kg 06/14/17 09:25 Calcium 9.8 mg/dL (8.4-10.2) 06/28/17 04:34 Phosphorus 3.80 mg/dL (2.5-4.5) D 06/28/17 04:34 Magnesium 1.80 mg/dL (1.7-2.3) 06/26/17 05:21 Total Bilirubin 0.40 mg/dL (0.1-1.2) 06/18/17 08:10 AST 14 units/L (5-40) 06/18/17 08:10 ALT 6 units/L (7-56) L 06/18/17 08:10 Alkaline Phosphatase 92 units/L (35-129) 06/18/17 08:10 C-Reactive Protein 13.60 mg/dL (0.00-1.30) H 06/21/17 08:28 Total Protein 5.9 g/dL (6.3-8.2) L 06/18/17 08:10 Albumin 2.8 g/dL (3.9-5) L 06/18/17 08:10 Albumin/Globulin Ratio 0.9 % 06/18/17 08:10 Triglycerides 132 mg/dL (2-149) 06/09/17 11:49 Cholesterol 171 mg/dL (50-199) 06/09/17 11:49 LDL Cholesterol Direct 95 mg/dL (50-130) 06/09/17 11:49 HDL Cholesterol 50 mg/dL (40-59) 06/09/17 11:49 Cholesterol/HDL Ratio 3.42 % 06/09/17 11:49 PTH Intact 40.84 pg/mL (15-65) 06/23/17 21:09 PTH Pre-Incision 641.9 (11.1-79.5) H 06/04/17 13:55 PTH Post-Excision 154.7 (11.1-79.5) H 06/04/17 13:55 PTH Intact Intraop 5 m Not Reportable 06/04/17 13:55 Random Vancomycin 17.4 ug/mL (0-40.0) 06/21/17 05:45 Miscellaneous Test Flexitest 1 H 06/21/17 08:28 Blood Type O POSITIVE 06/21/17 05:30 Antibody Screen TNR 06/21/17 05:30 JOHN Antibody Screen Negative 06/21/17 05:30
[2017-06-28] MEDS: ROCEPHIN/NS 2 GM/100 ML 2 GM/100 ML BAG IV SCH (10:19)
--- NOTE | 2017-06-28 10:57 | Progress Note ---
Assessment and Plan Assessment: 1) Sepsis: resolved. Etiology - Proteus septicemia. CRP=13 / Jzssju=[id number] (?very high level). CT abd showed no abscess or collection. 2) Proteus septicemia: ? lungs 3) Acute left MCA stroke with right-sided weakness. MRI brain showed large left MCA acute infarct. 4) Secondary hyperparathyroidismelective s/p total parathyroidectomy on 06/04/17 5) ESRD on HD 6) Respiratory failure ? pulmonary edema versus VAP 7) Presumed VAP: tracheal asp + Proteus s/p trach Plan: -contiue ceftriaxone 2 g IV qday - day 10 (from zosyn starting date) -f/u repeat procalcitonin -upon discharge will do levaquin 750 mg PO QOD total 14 days from 06/[address] Cardoso for your consultation, will follow up with you. Paz Bonilla MD Infectious Diseases Specialist [facility] ([facility]) M [phone] O [phone] Subjective Date of service: 06/28/17 Principal diagnosis: ARM/MV/Post hyperparathy./ESRD Interval history: Alert on On t-piece, no fever. still large yellow secretions -t tube Current antibiotics: Ceftriaxone 06/22 Previous Antimicrobials: Zosyn 06/19 Vancomycin 06/19 Microbiology: Blood cultures: 06/19 Proteus 06/21 neg Urine cultures: none Respiratory cultures: 06/04 ngtd 06/20 Proteus Objective - Exam Narrative Exam: General appearance: alert on t-piece Eyes: anicteric sclerae, moist conjunctivae; no lid-lag; PERRLA HENT: Atraumatic; oropharynx +NGT Neck: surgical scar well healed +trach with foamy yellowish secretion Lungs: dillon rhonchi / chest + mastectomy scar well healed CV: RRR Abdomen: Soft, non-tender Extremities: +peripheral edema Skin: Normal temperature, turgor and texture; no rash, ulcers or subcutaneous nodules Psych: alert Neuro: alert following commands Lines: - Constitutional Vitals: Vital Signs Temp Pulse Resp BP Pulse Ox 98.8 F 75 19 107/54 99 06/28/17 09:17 06/28/17 10:30 06/28/17 09:17 06/28/17 10:30 06/28/17 09:17 Temperature -Last 24 Hours Temperature 98.8 F Temperature 98.6 F Temperature 98.6 F Temperature 98.1 F Temperature 98.8 F Temperature 98.5 F - Labs CBC & Chem 7: 06/28/17 04:34 06/28/17 04:34 Labs: Abnormal lab results 06/27/17 06/27/17 06/28/17 Range/Units 12:50 17:54 04:34 Hgb 9.8 L (10.1-14.3) gm/dl MCV 77 L (79-97) fl MCH 24 L (28-32) pg RDW 19.0 H (13.2-15.2) % Chloride (98-107) mmol/L BUN (7-17) mg/dL Creatinine (0.7-1.2) mg/dL Glucose (65-100) mg/dL POC Glucose 126 H 111 H (70-105) 06/28/17 06/28/17 Range/Units 04:34 05:59 Hgb (10.1-14.3) gm/dl MCV (79-97) fl MCH (28-32) pg RDW (13.2-15.2) % Chloride 93.9 L (98-107) mmol/L BUN 48 H (7-17) mg/dL Creatinine 8.6 H (0.7-1.2) mg/dL Glucose 110 H (65-100) mg/dL POC Glucose 138 H (70-105)
[2017-06-28] MEDS: ROCALTROL PO SCH (11:00)
[2017-06-28] MEDS: BABY ASPIRIN PO SCH (11:00)
[2017-06-28] MEDS: HEPARIN SUB-Q SCH ×2 (11:00→21:59)
[2017-06-28] MEDS ORDERED: TRANSDERM-SCOP TD SCH (18:30)
[2017-06-29] MEDS: PROAMATINE PO SCH ×2 (05:28→13:54)
--- NOTE | 2017-06-29 08:26 | Progress Note ---
Assessment and Plan Assessment and plan: Acute hypoxic respiratory failure on mechanical ventilation more than 96 hours re-intubated, continue vent and s/p trach on 06/21/17 cont periodic breathing treatment, pulmonary following Acute left MCA stroke with right-sided weakness MRI brain showed large left MCA acute infarct Continue Aspirin and statin Vascular surgery consulted no intervention needed received mannitol for IC edema Sepsis May have Aspiration pneumonia which is obscured by pulmonary edema Blood cultures reviewed growing Proteus mirabilis Sputum culture also with proteus mirabilis Now on Ceftriaxone since 06/21, to complete 14 days 06/21-07/05/17 Metabolic Enchephalopathy due to stroke, s/p mannitol Status post subtotal parathyroidectomy. calcium level continue to replete calcium as needed End-stage renal disease on hemodialysis Continue hemodialysis as scheduled per nephrology Hyperkalemia Now resolved. Hypertension Continue prn medication History of breast cancer status post mastectomy Morbid obesity with BMI > 40 Nutrition input appreciated Moderate malnutrition continue tube feeds Hyponatremia Now resolved, Sodium 140 today. Hypotension, persisting Continue Midodrine 5mg Q 8h CT Abd/Pelvis negative for intra-abdominal abscess. Full code status Plan is to d/c to LT[facility]. manager parking working on arrangements History Interval history: Patient still intubated no more fever for over 1 week Hospitalist Physical - Physical exam Narrative exam: Gen Appearance: Not in acute distress, morbidly obese HEENT: normocephalic, atraumatic Neck: supple, no JVD Lungs: clear to auscultation bilaterally, no crackles or wheezes Heart: S1 and S2 regular, no murmurs, rubs or gallop Abdomen: Soft , non tender, non distended, PEG tube, normal bowel sounds Extremity: No edema, clubbing or cyanosis Neuro : Tracheostomy, sedated - Constitutional Vitals: Temp Pulse Resp BP Pulse Ox 98.4 F 86 22 99/56 99 06/29/17 03:15 06/29/17 08:00 06/29/17 08:00 06/29/17 07:00 06/29/17 08:00 General appearance: Present: no acute distress, other (withdrawn, nonverbal) Results - Labs CBC & Chem 7: 06/28/17 04:34 06/28/17 04:34 Labs: Laboratory Last Values WBC 10.4 K/mm3 (4.5-11.0) 06/28/17 04:34 RBC 4.03 M/mm3 (3.65-5.03) 06/28/17 04:34 Hgb 9.8 gm/dl (10.1-14.3) L 06/28/17 04:34 POC Hgb 14.3 (12-17) 06/04/17 16:22 Hct 31.2 % (30.3-42.9) 06/28/17 04:34 POC Hct 42 (38-51) 06/04/17 16:22 MCV 77 fl (79-97) L 06/28/17 04:34 MCH 24 pg (28-32) L 06/28/17 04:34 MCHC 32 % (30-34) 06/28/17 04:34 RDW 19.0 % (13.2-15.2) H 06/28/17 04:34 Plt Count 289 K/mm3 (140-440) 06/28/17 04:34 [place] % (Auto) 11.2 % (0.0-7.3) H 06/16/17 08:45 Eos % (Auto) 1.4 % (0.0-4.3) 06/16/17 08:45 [place] # 1.6 K/mm3 (0.0-0.8) H 06/16/17 08:45 Eos # 0.2 K/mm3 (0.0-0.4) 06/16/17 08:45 Baso # 0.1 K/mm3 (0.0-0.1) 06/16/17 08:45 Add Manual Diff Complete 06/16/17 08:45 Total Counted 100 06/16/17 08:45 Seg Neutrophils % 82.8 % (40.0-70.0) H 06/16/17 08:45 Seg Neuts % (Manual) 78.0 % (40.0-70.0) H 06/16/17 08:45 Band Neutrophils % 1.0 % 06/16/17 08:45 Lymphocytes % (Manual) 3.0 % (13.4-35.0) L 06/16/17 08:45 Reactive Lymphs % (Man) 0 % 06/16/17 08:45 Monocytes % (Manual) 9.0 % (0.0-7.3) H 06/16/17 08:45 Eosinophils % (Manual) 2.0 % (0.0-4.3) 06/16/17 08:45 Basophils % (Manual) 1.0 % (0.0-1.8) 06/16/17 08:45 Metamyelocytes % 6.0 % 06/16/17 08:45 Myelocytes % 0 % 06/16/17 08:45 Promyelocytes % 0 % 06/16/17 08:45 Blast Cells % 0 % 06/16/17 08:45 Nucleated RBC % 1.0 % (0.0-0.9) H 06/16/17 08:45 Seg Neutrophils # 12.2 K/mm3 (1.8-7.7) H 06/16/17 08:45 Seg Neutrophils # Man 17.1 K/mm3 (1.8-7.7) H 06/16/17 08:45 Band Neutrophils # 0.2 K/mm3 06/16/17 08:45 Lymphocytes # (Manual) 0.7 K/mm3 (1.2-5.4) L 06/16/17 08:45 Abs React Lymphs (Man) 0.0 K/mm3 06/16/17 08:45 Monocytes # (Manual) 2.0 K/mm3 (0.0-0.8) H 06/16/17 08:45 Eosinophils # (Manual) 0.4 K/mm3 (0.0-0.4) 06/16/17 08:45 Basophils # (Manual) 0.2 K/mm3 (0.0-0.1) H 06/16/17 08:45 Metamyelocytes # 1.3 K/mm3 06/16/17 08:45 Myelocytes # 0.0 K/mm3 06/16/17 08:45 Promyelocytes # 0.0 K/mm3 06/16/17 08:45 Blast Cells # 0.0 K/mm3 06/16/17 08:45 WBC Morphology Not Reportable 06/16/17 08:45 Hypersegmented Neuts Not Reportable 06/16/17 08:45 Hyposegmented Neuts Not Reportable 06/16/17 08:45 Hypogranular Neuts Not Reportable 06/16/17 08:45 Smudge Cells Not Reportable 06/16/17 08:45 Toxic Granulation Not Reportable 06/16/17 08:45 Toxic Vacuolation Not Reportable 06/16/17 08:45 Dohle Bodies Not Reportable 06/16/17 08:45 Pelger-Huet Anomaly Not Reportable 06/16/17 08:45 Sunita Rods Not Reportable 06/16/17 08:45 Platelet Estimate Cons 06/16/17 08:45 Clumped Platelets Not Reportable 06/16/17 08:45 Plt Clumps, EDTA Not Reportable 06/16/17 08:45 Large Platelets Not Reportable 06/16/17 08:45 Giant Platelets Not Reportable 06/16/17 08:45 Platelet Satelliting Not Reportable 06/16/17 08:45 Plt Morphology Comment Not Reportable 06/16/17 08:45 RBC Morphology Not Reportable 06/16/17 08:45 Dimorphic RBCs Not Reportable 06/16/17 08:45 Polychromasia Not Reportable 06/16/17 08:45 Hypochromasia 2+ 06/16/17 08:45 Poikilocytosis Not Reportable 06/16/17 08:45 Anisocytosis Not Reportable 06/16/17 08:45 Microcytosis 1+ 06/16/17 08:45 Macrocytosis Not Reportable 06/16/17 08:45 Spherocytes Not Reportable 06/16/17 08:45 Pappenheimer Bodies Not Reportable 06/16/17 08:45 Sickle Cells Not Reportable 06/16/17 08:45 Target Cells Not Reportable 06/16/17 08:45 Tear Drop Cells Few 06/16/17 08:45 Ovalocytes Not Reportable 06/16/17 08:45 Helmet Cells Not Reportable 06/16/17 08:45 Ramos-Flatonia Bodies Not Reportable 06/16/17 08:45 Irrigon Rings Not Reportable 06/16/17 08:45 Donaldo Cells Not Reportable 06/16/17 08:45 Bite Cells Not Reportable 06/16/17 08:45 Crenated Cell Not Reportable 06/16/17 08:45 Elliptocytes Not Reportable 06/16/17 08:45 Acanthocytes (Spur) Not Reportable 06/16/17 08:45 Rouleaux Not Reportable 06/16/17 08:45 Hemoglobin C Crystals Not Reportable 06/16/17 08:45 Schistocytes Few 06/16/17 08:45 Malaria parasites Not Reportable 06/16/17 08:45 Williams Bodies Not Reportable 06/16/17 08:45 Hem Pathologist Commnt No 06/16/17 08:45 PT 15.2 Sec. (12.2-14.9) H 06/21/17 05:45 INR 1.14 (0.87-1.13) H 06/21/17 05:45 APTT 29.9 Sec. (24.2-36.6) 06/09/17 16:55 POC ABG pH 7.441 (7.35-7.45) 06/24/17 13:15 ABG pH 7.438 pH Units (7.350-7.450) 06/22/17 05:00 POC ABG pCO2 43.9 (35-45) 06/24/17 13:15 ABG pCO2 42.6 mm Hg 06/22/17 05:00 POC ABG pO2 101 (80-105) 06/24/17 13:15 ABG pO2 110.7 mm Hg (80.0-90.0) H 06/22/17 05:00 POC ABG HCO3 29.9 06/24/17 13:15 ABG HCO3 28.2 mmol/L (20.0-26.0) H 06/22/17 05:00 POC ABG Total CO2 31 06/24/17 13:15 POC ABG O2 Sat 98 06/24/17 13:15 ABG O2 Saturation 98.1 % (95.0-99.0) 06/22/17 05:00 ABG O2 Content 12.3 (0.0-44) 06/22/17 05:00 POC ABG Base Excess 6 06/24/17 13:15 ABG Base Excess 3.7 mmol/L (-2.0-3.0) H 06/22/17 05:00 ABG Hemoglobin 8.9 gm/dl (12.0-16.0) L 06/22/17 05:00 ABG Carboxyhemoglobin 1.7 % (0.0-5.0) 06/22/17 05:00 ABG Methemoglobin 0.3 % (0.0-1.5) 06/22/17 05:00 Oxyhemoglobin 96.1 % (95.0-99.0) 06/22/17 05:00 POC Sodium 137 mmol/L (138-146) L 06/04/17 16:22 POC Potassium 5.3 (3.5-4.9) H 06/04/17 16:22 POC Chloride 102 (98-109) 06/04/17 16:22 FiO2 30 % 06/24/17 13:15 Sodium 140 mmol/L (137-145) 06/28/17 04:34 Potassium 3.6 mmol/L (3.6-5.0) 06/28/17 04:34 Chloride 93.9 mmol/L (98-107) L 06/28/17 04:34 Carbon Dioxide 28 mmol/L (22-30) 06/28/17 04:34 Anion Gap 22 mmol/L 06/28/17 04:34 POC BUN 45 mg/dl (8-26) H 06/04/17 16:22 BUN 48 mg/dL (7-17) H 06/28/17 04:34 Creatinine 8.6 mg/dL (0.7-1.2) H 06/28/17 04:34 Estimated GFR 6 ml/min 06/28/17 04:34 BUN/Creatinine Ratio 6 % 06/28/17 04:34 Glucose 110 mg/dL (65-100) H 06/28/17 04:34 POC Glucose 96 (70-105) 06/29/17 05:15 Osmolality 312 Mosm/kg 06/14/17 09:25 Calcium 9.8 mg/dL (8.4-10.2) 06/28/17 04:34 Phosphorus 3.80 mg/dL (2.5-4.5) D 06/28/17 04:34 Magnesium 1.80 mg/dL (1.7-2.3) 06/26/17 05:21 Total Bilirubin 0.40 mg/dL (0.1-1.2) 06/18/17 08:10 AST 14 units/L (5-40) 06/18/17 08:10 ALT 6 units/L (7-56) L 06/18/17 08:10 Alkaline Phosphatase 92 units/L (35-129) 06/18/17 08:10 C-Reactive Protein 13.60 mg/dL (0.00-1.30) H 06/21/17 08:28 Total Protein 5.9 g/dL (6.3-8.2) L 06/18/17 08:10 Albumin 2.8 g/dL (3.9-5) L 06/18/17 08:10 Albumin/Globulin Ratio 0.9 % 06/18/17 08:10 Triglycerides 132 mg/dL (2-149) 06/09/17 11:49 Cholesterol 171 mg/dL (50-199) 06/09/17 11:49 LDL Cholesterol Direct 95 mg/dL (50-130) 06/09/17 11:49 HDL Cholesterol 50 mg/dL (40-59) 06/09/17 11:49 Cholesterol/HDL Ratio 3.42 % 06/09/17 11:49 PTH Intact 40.84 pg/mL (15-65) 06/23/17 21:09 PTH Pre-Incision 641.9 (11.1-79.5) H 06/04/17 13:55 PTH Post-Excision 154.7 (11.1-79.5) H 06/04/17 13:55 PTH Intact Intraop 5 m Not Reportable 06/04/17 13:55 Random Vancomycin 17.4 ug/mL (0-40.0) 06/21/17 05:45 Miscellaneous Test Flexitest 1 H 06/21/17 08:28 Blood Type O POSITIVE 06/21/17 05:30 Antibody Screen TNR 06/21/17 05:30 JOHN Antibody Screen Negative 06/21/17 05:30
--- NOTE | 2017-06-29 08:50 | Progress Note ---
Assessment and Plan Acute respiratory failure, hypoxia/hypercapnea. On tracheotomy/TPs good tolerance. Some secretions Hyperparathyroidism s/p parathyroidectomy Hypophospathemia. Corrected Hypercalemia. Corrected Sepsis secondary to Proteus. Completing antibiotics. No fever. Some secretions Morbid obesity ESRD. On hemodialysis Laryngeal edema/stridor. Resolved/tracheotomy Acute CVA. Left MCA stroke. Neurologically, slowly improving, therapy. Rec: Complete antibiotics. See Dr. Beckwith length of treatment recommendations Monitor labs, calcium, potassium and phosphate Continue oxygen support as needed Suction as needed Physical rehab Placement for long-term rehabilitation is being arranged at this point. Waiting for LTAC opening approval in order to continue outpatient care No family at the bedside. Critical care time was 31 minutes minutes of [id number] evaluation coordination of care Subjective Date of service: 06/29/17 Principal diagnosis: ARM/MV/Post hyperparathy./ESRD Interval history: No pain or shortness of breath. No events overnight Objective Vital Signs - 12hr 06/28/17 06/28/17 06/28/17 20:55 21:00 22:00 Temperature Pulse Rate 95 H 90 Respiratory 22 22 Rate Blood Pressure 107/57 99/61 O2 Sat by Pulse 99 96 96 Oximetry O2 Sat by Pulse Oximetry [ Assessment] 06/28/17 06/28/17 06/28/17 22:26 22:38 23:00 Temperature 98.6 F Pulse Rate 87 86 Respiratory 22 21 Rate Blood Pressure 99/61 110/60 O2 Sat by Pulse 97 98 Oximetry O2 Sat by Pulse Oximetry [ Assessment] 06/29/17 06/29/17 06/29/17 00:00 01:00 02:00 Temperature Pulse Rate 88 89 88 Respiratory 19 21 18 Rate Blood Pressure 102/63 100/60 102/60 O2 Sat by Pulse 95 99 96 Oximetry O2 Sat by Pulse Oximetry [ Assessment] 06/29/17 06/29/17 06/29/17 03:00 03:15 03:32 Temperature 98.4 F Pulse Rate 88 Respiratory 21 Rate Blood Pressure 107/55 O2 Sat by Pulse 99 Oximetry O2 Sat by Pulse 100 Oximetry [ Assessment] 06/29/17 06/29/17 06/29/17 04:00 05:00 06:00 Temperature Pulse Rate 90 96 H 95 H Respiratory 21 24 22 Rate Blood Pressure 111/57 102/54 108/63 O2 Sat by Pulse 91 98 99 Oximetry O2 Sat by Pulse Oximetry [ Assessment] 06/29/17 06/29/17 07:00 08:00 Temperature Pulse Rate 87 86 Respiratory 25 H 22 Rate Blood Pressure 99/56 O2 Sat by Pulse 99 99 Oximetry O2 Sat by Pulse Oximetry [ Assessment] Constitutional: no acute distress, alert Eyes: non-icteric Neck: supple, no JVD, other (tracheotomy and position, ) Effort: normal Ascultation: Bilateral: clear, diminished breath sounds, rhonchi (sporadic) Percussion: Bilateral: not dull Cardiovascular: regular rate and rhythm Gastrointestinal: normoactive bowel sounds, soft, non-tender, non-distended, other Integumentary: normal Extremities: no cyanosis, no edema, pink and warm, edema Neurologic: other (right upper extremity hemiparesis. Spontaneous movement noted otherwise. Alert but not following commands fully) Psychiatric: mood appropriate, affect normal CBC and BMP: 06/28/17 04:34 06/28/17 04:34 ABG, PT/INR, D-dimer: ABG POC ABG pH 7.441 (7.35-7.45) 06/24/17 13:15 ABG pH 7.438 pH Units (7.350-7.450) 06/22/17 05:00 POC ABG pCO2 43.9 (35-45) 06/24/17 13:15 ABG pCO2 42.6 mm Hg 06/22/17 05:00 POC ABG pO2 101 (80-105) 06/24/17 13:15 ABG pO2 110.7 mm Hg (80.0-90.0) H 06/22/17 05:00 POC ABG HCO3 29.9 06/24/17 13:15 POC ABG Total CO2 31 06/24/17 13:15 POC ABG O2 Sat 98 06/24/17 13:15 ABG O2 Saturation 98.1 % (95.0-99.0) 06/22/17 05:00 PT/INR, D-dimer PT 15.2 Sec. (12.2-14.9) H 06/21/17 05:45 INR 1.14 (0.87-1.13) H 06/21/17 05:45 Abnormal Lab Results 06/28/17 06/28/17 06/28/17 04:34 12:16 17:46 POC Glucose 121 H 121 H Phosphorus 3.80 D 06/28/17 06/29/17 22:57 05:15 POC Glucose 128 H 96 Phosphorus Abnormal lab findings: Abnormal Labs 06/04/17 06/04/17 06/04/17 00:01 12:50 13:55 WBC 11.4 H RBC Hgb Hct POC Hct MCV 76 L MCH 23 L RDW 18.5 H [place] % (Auto) Lab[place] # Seg Neutrophils % Seg Neuts % (Manual) 89.0 H Lymphocytes % (Manual) 6.0 L Monocytes % (Manual) Nucleated RBC % Seg Neutrophils # Seg Neutrophils # Man 10.1 H Lymphocytes # (Manual) 0.7 L Monocytes # (Manual) Eosinophils # (Manual) Basophils # (Manual) PT INR POC ABG pH ABG pH POC ABG pCO2 POC ABG pO2 ABG pO2 ABG HCO3 ABG O2 Saturation ABG Base Excess ABG Hemoglobin POC Sodium POC Potassium Sodium Potassium 5.1 H 5.2 H Chloride Carbon Dioxide POC BUN BUN 48 H Creatinine 6.2 H Glucose POC Glucose Calcium Phosphorus ALT C-Reactive Protein Total Protein Albumin PTH Pre-Incision PTH Post-Excision Miscellaneous Test 06/04/17 06/04/17 06/04/17 13:55 16:10 16:16 WBC RBC Hgb Hct POC Hct 37 L MCV MCH RDW [place] % (Auto) [place] # Seg Neutrophils % Seg Neuts % (Manual) Lymphocytes % (Manual) Monocytes % (Manual) Nucleated RBC % Seg Neutrophils # Seg Neutrophils # Man Lymphocytes # (Manual) Monocytes # (Manual) Eosinophils # (Manual) Basophils # (Manual) PT INR POC ABG pH 7.306 L ABG pH POC ABG pCO2 58.7 H POC ABG pO2 338 H ABG pO2 ABG HCO3 ABG O2 Saturation ABG Base Excess ABG Hemoglobin POC Sodium 135 L POC Potassium 5.2 H Sodium Potassium Chloride Carbon Dioxide POC BUN 44 H BUN Creatinine Glucose POC Glucose 183 H Calcium Phosphorus ALT C-Reactive Protein Total Protein Albumin PTH Pre-Incision 641.9 H PTH Post-Excision 154.7 H Miscellaneous Test 06/04/17 06/04/17 06/04/17 16:22 20:44 21:29 WBC RBC Hgb Hct POC Hct MCV MCH RDW [place] % (Auto) [place] # Seg Neutrophils % Seg Neuts % (Manual) Lymphocytes % (Manual) Monocytes % (Manual) Nucleated RBC % Seg Neutrophils # Seg Neutrophils # Man Lymphocytes # (Manual) Monocytes # (Manual) Eosinophils # (Manual) Basophils # (Manual) PT INR POC ABG pH 7.484 H ABG pH POC ABG pCO2 POC ABG pO2 ABG pO2 ABG HCO3 ABG O2 Saturation ABG Base Excess ABG Hemoglobin POC Sodium 137 L POC Potassium 5.3 H Sodium Potassium 5.2 H Chloride Carbon Dioxide POC BUN 45 H BUN 51 H Creatinine 6.5 H Glucose 119 H POC Glucose 176 H Calcium Phosphorus ALT C-Reactive Protein Total Protein Albumin PTH Pre-Incision PTH Post-Excision Miscellaneous Test 06/05/17 06/05/17 06/05/17 03:31 11:44 11:44 WBC 13.4 H RBC Hgb Hct POC Hct MCV 75 L MCH 23 L RDW 18.2 H [place] % (Auto) [place] # Seg Neutrophils % Seg Neuts % (Manual) Lymphocytes % (Manual) Monocytes % (Manual) Nucleated RBC % Seg Neutrophils # Seg Neutrophils # Man Lymphocytes # (Manual) Monocytes # (Manual) Eosinophils # (Manual) Basophils # (Manual) PT INR POC ABG pH ABG pH POC ABG pCO2 POC ABG pO2 75 L ABG pO2 ABG HCO3 ABG O2 Saturation ABG Base Excess ABG Hemoglobin POC Sodium POC Potassium Sodium Potassium 5.8 H Chloride Carbon Dioxide POC BUN BUN 56 H Creatinine 7.0 H Glucose 111 H POC Glucose Calcium 8.2 L Phosphorus ALT C-Reactive Protein Total Protein 6.2 L Albumin 3.1 L PTH Pre-Incision PTH Post-Excision Miscellaneous Test 06/06/17 06/06/17 06/07/17 05:07 07:13 03:53 WBC RBC Hgb Hct POC Hct MCV MCH RDW [place] % (Auto) [place] # Seg Neutrophils % Seg Neuts % (Manual) Lymphocytes % (Manual) Monocytes % (Manual) Nucleated RBC % Seg Neutrophils # Seg Neutrophils # Man Lymphocytes # (Manual) Monocytes # (Manual) Eosinophils # (Manual) Basophils # (Manual) PT INR POC ABG pH ABG pH POC ABG pCO2 POC ABG pO2 116 H 137 H ABG pO2 ABG HCO3 ABG O2 Saturation ABG Base Excess ABG Hemoglobin POC Sodium POC Potassium Sodium Potassium Chloride Carbon Dioxide POC BUN BUN 32 H Creatinine 4.9 H Glucose 115 H POC Glucose Calcium 7.9 L Phosphorus ALT C-Reactive Protein Total Protein 5.7 L Albumin 3.3 L PTH Pre-Incision PTH Post-Excision Miscellaneous Test 06/07/17 06/07/17 06/07/17 05:21 05:21 16:54 WBC RBC Hgb Hct POC Hct MCV 75 L MCH 24 L RDW 18.7 H [place] % (Auto) [place] # Seg Neutrophils % Seg Neuts % (Manual) Lymphocytes % (Manual) Monocytes % (Manual) Nucleated RBC % Seg Neutrophils # Seg Neutrophils # Man Lymphocytes # (Manual) Monocytes # (Manual) Eosinophils # (Manual) Basophils # (Manual) PT INR POC ABG pH ABG pH POC ABG pCO2 POC ABG pO2 ABG pO2 ABG HCO3 ABG O2 Saturation ABG Base Excess ABG Hemoglobin POC Sodium POC Potassium Sodium Potassium 5.4 H Chloride Carbon Dioxide POC BUN BUN 52 H Creatinine 6.2 H Glucose 107 H POC Glucose 110 H Calcium 8.0 L Phosphorus ALT C-Reactive Protein Total Protein Albumin PTH Pre-Incision PTH Post-Excision Miscellaneous Test 06/07/17 06/07/17 06/08/17 17:38 23:32 04:00 WBC RBC Hgb Hct POC Hct MCV 77 L MCH 23 L RDW 18.3 H [place] % (Auto) [place] # Seg Neutrophils % Seg Neuts % (Manual) 78.0 H Lymphocytes % (Manual) Monocytes % (Manual) Nucleated RBC % 3.0 H Seg Neutrophils # Seg Neutrophils # Man 7.8 H Lymphocytes # (Manual) Monocytes # (Manual) Eosinophils # (Manual) Basophils # (Manual) PT INR POC ABG pH 7.310 L ABG pH POC ABG pCO2 51.9 H POC ABG pO2 ABG pO2 ABG HCO3 ABG O2 Saturation ABG Base Excess ABG Hemoglobin POC Sodium POC Potassium Sodium Potassium Chloride Carbon Dioxide POC BUN BUN Creatinine Glucose POC Glucose 63 L Calcium Phosphorus ALT C-Reactive Protein Total Protein Albumin PTH Pre-Incision PTH Post-Excision Miscellaneous Test 06/08/17 06/08/17 06/08/17 04:00 10:51 11:25 WBC RBC Hgb Hct POC Hct MCV MCH RDW [place] % (Auto) [place] # Seg Neutrophils % Seg Neuts % (Manual) Lymphocytes % (Manual) Monocytes % (Manual) Nucleated RBC % Seg Neutrophils # Seg Neutrophils # Man Lymphocytes # (Manual) Monocytes # (Manual) Eosinophils # (Manual) Basophils # (Manual) PT INR POC ABG pH 7.336 L ABG pH POC ABG pCO2 55.1 H POC ABG pO2 ABG pO2 ABG HCO3 ABG O2 Saturation ABG Base Excess ABG Hemoglobin POC Sodium POC Potassium Sodium Potassium Chloride 96.9 L Carbon Dioxide POC BUN BUN 29 H Creatinine 4.6 H Glucose POC Glucose 108 H Calcium 8.3 L Phosphorus ALT C-Reactive Protein Total Protein Albumin PTH Pre-Incision PTH Post-Excision Miscellaneous Test 06/08/17 06/09/17 06/09/17 14:22 11:42 11:42 WBC RBC Hgb Hct POC Hct MCV 76 L MCH 24 L RDW 18.3 H [place] % (Auto) [place] # Seg Neutrophils % Seg Neuts % (Manual) 80.0 H Lymphocytes % (Manual) 10.0 L Monocytes % (Manual) Nucleated RBC % 2.0 H Seg Neutrophils # Seg Neutrophils # Man Lymphocytes # (Manual) 1.0 L Monocytes # (Manual) Eosinophils # (Manual) Basophils # (Manual) PT INR POC ABG pH ABG pH POC ABG pCO2 52.8 H POC ABG pO2 77 L ABG pO2 ABG HCO3 ABG O2 Saturation ABG Base Excess ABG Hemoglobin POC Sodium POC Potassium Sodium Potassium 5.4 H D Chloride 97.1 L Carbon Dioxide POC BUN BUN 58 H Creatinine 6.6 H Glucose POC Glucose Calcium 7.2 L Phosphorus ALT C-Reactive Protein Total Protein Albumin PTH Pre-Incision PTH Post-Excision Miscellaneous Test 06/09/17 06/10/17 06/10/17 12:04 03:29 03:29 WBC 13.7 H RBC Hgb Hct POC Hct MCV 77 L MCH 24 L RDW 17.9 H [place] % (Auto) [place] # Seg Neutrophils % Seg Neuts % (Manual) 82.0 H Lymphocytes % (Manual) 7.0 L Monocytes % (Manual) Nucleated RBC % 6.0 H Seg Neutrophils # Seg Neutrophils # Man 11.2 H Lymphocytes # (Manual) 1.0 L Monocytes # (Manual) Eosinophils # (Manual) Basophils # (Manual) PT INR POC ABG pH ABG pH POC ABG pCO2 POC ABG pO2 ABG pO2 ABG HCO3 ABG O2 Saturation ABG Base Excess ABG Hemoglobin POC Sodium POC Potassium Sodium Potassium Chloride 94.2 L Carbon Dioxide POC BUN BUN 32 H Creatinine 4.6 H Glucose 106 H POC Glucose 106 H Calcium 8.0 L Phosphorus ALT C-Reactive Protein Total Protein Albumin PTH Pre-Incision PTH Post-Excision Miscellaneous Test 06/10/17 06/11/17 06/11/17 05:27 06:00 06:00 WBC 11.8 H RBC Hgb Hct POC Hct MCV 77 L MCH 24 L RDW 18.3 H [place] % (Auto) [place] # Seg Neutrophils % Seg Neuts % (Manual) 88.0 H Lymphocytes % (Manual) 7.0 L Monocytes % (Manual) Nucleated RBC % 1.0 H Seg Neutrophils # Seg Neutrophils # Man 10.4 H Lymphocytes # (Manual) 0.8 L Monocytes # (Manual) Eosinophils # (Manual) Basophils # (Manual) PT INR POC ABG pH ABG pH POC ABG pCO2 POC ABG pO2 ABG pO2 ABG HCO3 ABG O2 Saturation ABG Base Excess ABG Hemoglobin POC Sodium POC Potassium Sodium Potassium Chloride Carbon Dioxide POC BUN BUN 53 H Creatinine 6.0 H Glucose POC Glucose 106 H Calcium 6.3 L D Phosphorus ALT C-Reactive Protein Total Protein Albumin PTH Pre-Incision PTH Post-Excision Miscellaneous Test 06/11/17 06/11/17 06/11/17 06:51 12:10 16:54 WBC RBC Hgb Hct POC Hct MCV MCH RDW [place] % (Auto) [place] # Seg Neutrophils % Seg Neuts % (Manual) Lymphocytes % (Manual) Monocytes % (Manual) Nucleated RBC % Seg Neutrophils # Seg Neutrophils # Man Lymphocytes # (Manual) Monocytes # (Manual) Eosinophils # (Manual) Basophils # (Manual) PT INR POC ABG pH 7.556 H ABG pH POC ABG pCO2 34.8 L POC ABG pO2 125 H ABG pO2 ABG HCO3 ABG O2 Saturation ABG Base Excess ABG Hemoglobin POC Sodium POC Potassium Sodium Potassium Chloride Carbon Dioxide POC BUN BUN Creatinine Glucose POC Glucose 115 H 106 H Calcium Phosphorus ALT C-Reactive Protein Total Protein Albumin PTH Pre-Incision PTH Post-Excision Miscellaneous Test 06/11/17 06/12/17 06/12/17 20:20 00:06 04:20 WBC RBC Hgb Hct POC Hct MCV MCH RDW [place] % (Auto) [place] # Seg Neutrophils % Seg Neuts % (Manual) Lymphocytes % (Manual) Monocytes % (Manual) Nucleated RBC % Seg Neutrophils # Seg Neutrophils # Man Lymphocytes # (Manual) Monocytes # (Manual) Eosinophils # (Manual) Basophils # (Manual) PT INR POC ABG pH ABG pH 7.512 H 7.514 H POC ABG pCO2 POC ABG pO2 ABG pO2 148.5 H 209.1 H ABG HCO3 ABG O2 Saturation 99.3 H ABG Base Excess ABG Hemoglobin POC Sodium POC Potassium Sodium Potassium Chloride Carbon Dioxide POC BUN BUN Creatinine Glucose POC Glucose 108 H Calcium Phosphorus ALT C-Reactive Protein Total Protein Albumin PTH Pre-Incision PTH Post-Excision Miscellaneous Test 06/12/17 06/12/17 06/12/17 05:24 05:30 05:30 WBC 14.3 H RBC Hgb Hct POC Hct MCV 75 L MCH 24 L RDW 18.5 H [place] % (Auto) [place] # Seg Neutrophils % Seg Neuts % (Manual) 73.0 H Lymphocytes % (Manual) 6.0 L Monocytes % (Manual) 9.0 H Nucleated RBC % 1.0 H Seg Neutrophils # Seg Neutrophils # Man 10.4 H Lymphocytes # (Manual) 0.9 L Monocytes # (Manual) 1.3 H Eosinophils # (Manual) Basophils # (Manual) PT INR POC ABG pH ABG pH POC ABG pCO2 POC ABG pO2 ABG pO2 ABG HCO3 ABG O2 Saturation ABG Base Excess ABG Hemoglobin POC Sodium POC Potassium Sodium 131 L D Potassium Chloride 90.6 L Carbon Dioxide POC BUN BUN 51 H Creatinine 6.5 H Glucose POC Glucose 109 H Calcium Phosphorus ALT C-Reactive Protein Total Protein Albumin PTH Pre-Incision PTH Post-Excision Miscellaneous Test 06/12/17 06/13/17 06/13/17 11:46 04:15 04:55 WBC 17.9 H RBC Hgb Hct POC Hct MCV 75 L MCH 24 L RDW 18.5 H [place] % (Auto) [place] # Seg Neutrophils % Seg Neuts % (Manual) 75.0 H Lymphocytes % (Manual) 6.0 L Monocytes % (Manual) 9.0 H Nucleated RBC % Seg Neutrophils # Seg Neutrophils # Man 13.4 H Lymphocytes # (Manual) 1.1 L Monocytes # (Manual) 1.6 H Eosinophils # (Manual) 0.5 H Basophils # (Manual) 0.2 H PT INR POC ABG pH ABG pH POC ABG pCO2 POC ABG pO2 ABG pO2 131.0 H ABG HCO3 ABG O2 Saturation ABG Base Excess ABG Hemoglobin 10.5 L POC Sodium POC Potassium Sodium Potassium Chloride Carbon Dioxide POC BUN BUN Creatinine Glucose POC Glucose 116 H Calcium Phosphorus ALT C-Reactive Protein Total Protein Albumin PTH Pre-Incision PTH Post-Excision Miscellaneous Test 06/13/17 06/13/17 06/14/17 04:55 17:23 04:30 WBC 17.8 H RBC Hgb 9.7 L Hct POC Hct MCV 76 L MCH 24 L RDW 18.3 H [place] % (Auto) [place] # Seg Neutrophils % Seg Neuts % (Manual) 74.0 H Lymphocytes % (Manual) 6.0 L Monocytes % (Manual) 9.0 H Nucleated RBC % Seg Neutrophils # Seg Neutrophils # Man 13.2 H Lymphocytes # (Manual) 1.1 L Monocytes # (Manual) 1.6 H Eosinophils # (Manual) Basophils # (Manual) PT INR POC ABG pH ABG pH POC ABG pCO2 POC ABG pO2 ABG pO2 ABG HCO3 ABG O2 Saturation ABG Base Excess ABG Hemoglobin POC Sodium POC Potassium Sodium 128 L Potassium Chloride 88.9 L Carbon Dioxide POC BUN BUN 73 H Creatinine 7.6 H Glucose 115 H POC Glucose 113 H Calcium 8.1 L Phosphorus ALT C-Reactive Protein Total Protein Albumin PTH Pre-Incision PTH Post-Excision Miscellaneous Test 06/14/17 06/14/17 06/14/17 04:30 05:30 05:49 WBC RBC Hgb Hct POC Hct MCV MCH RDW [place] % (Auto) [place] # Seg Neutrophils % Seg Neuts % (Manual) Lymphocytes % (Manual) Monocytes % (Manual) Nucleated RBC % Seg Neutrophils # Seg Neutrophils # Man Lymphocytes # (Manual) Monocytes # (Manual) Eosinophils # (Manual) Basophils # (Manual) PT INR POC ABG pH ABG pH POC ABG pCO2 POC ABG pO2 ABG pO2 109.3 H ABG HCO3 ABG O2 Saturation ABG Base Excess ABG Hemoglobin 10.7 L POC Sodium POC Potassium Sodium 124 L Potassium Chloride 84.3 L Carbon Dioxide POC BUN BUN 86 H Creatinine 9.0 H Glucose 106 H POC Glucose 111 H Calcium 8.1 L Phosphorus ALT C-Reactive Protein Total Protein Albumin PTH Pre-Incision PTH Post-Excision Miscellaneous Test 06/14/17 06/14/17 06/14/17 12:27 16:05 23:35 WBC RBC Hgb Hct POC Hct MCV MCH RDW [place] % (Auto) [place] # Seg Neutrophils % Seg Neuts % (Manual) Lymphocytes % (Manual) Monocytes % (Manual) Nucleated RBC % Seg Neutrophils # Seg Neutrophils # Man Lymphocytes # (Manual) Monocytes # (Manual) Eosinophils # (Manual) Basophils # (Manual) PT INR POC ABG pH ABG pH POC ABG pCO2 POC ABG pO2 ABG pO2 ABG HCO3 ABG O2 Saturation ABG Base Excess ABG Hemoglobin POC Sodium POC Potassium Sodium Potassium Chloride Carbon Dioxide POC BUN BUN Creatinine Glucose POC Glucose 139 H 133 H 147 H Calcium Phosphorus ALT C-Reactive Protein Total Protein Albumin PTH Pre-Incision PTH Post-Excision Miscellaneous Test 06/15/17 06/15/17 06/15/17 05:05 06:00 06:00 WBC 21.4 H RBC Hgb 9.2 L Hct POC Hct MCV 77 L MCH 23 L RDW 18.8 H [place] % (Auto) [place] # Seg Neutrophils % Seg Neuts % (Manual) 86.0 H Lymphocytes % (Manual) 2.0 L Monocytes % (Manual) Nucleated RBC % 1.0 H Seg Neutrophils # Seg Neutrophils # Man 18.4 H Lymphocytes # (Manual) 0.4 L Monocytes # (Manual) 1.5 H Eosinophils # (Manual) Basophils # (Manual) PT INR POC ABG pH ABG pH POC ABG pCO2 POC ABG pO2 ABG pO2 ABG HCO3 ABG O2 Saturation ABG Base Excess ABG Hemoglobin POC Sodium POC Potassium Sodium 132 L D Potassium Chloride 91.5 L Carbon Dioxide POC BUN BUN 59 H Creatinine 6.6 H Glucose 116 H POC Glucose 145 H Calcium Phosphorus ALT C-Reactive Protein Total Protein Albumin PTH Pre-Incision PTH Post-Excision Miscellaneous Test 06/15/17 06/15/17 06/15/17 12:04 17:55 23:40 WBC RBC Hgb Hct POC Hct MCV MCH RDW [place] % (Auto) [place] # Seg Neutrophils % Seg Neuts % (Manual) Lymphocytes % (Manual) Monocytes % (Manual) Nucleated RBC % Seg Neutrophils # Seg Neutrophils # Man Lymphocytes # (Manual) Monocytes # (Manual) Eosinophils # (Manual) Basophils # (Manual) PT INR POC ABG pH ABG pH POC ABG pCO2 POC ABG pO2 ABG pO2 ABG HCO3 ABG O2 Saturation ABG Base Excess ABG Hemoglobin POC Sodium POC Potassium Sodium Potassium Chloride Carbon Dioxide POC BUN BUN Creatinine Glucose POC Glucose 109 H 119 H 123 H Calcium Phosphorus ALT C-Reactive Protein Total Protein Albumin PTH Pre-Incision PTH Post-Excision Miscellaneous Test 06/15/17 06/16/17 06/16/17 Unknown 06:00 08:45 WBC 21.9 H RBC Hgb 8.9 L Hct 29.0 L POC Hct MCV 77 L MCH 24 L RDW 18.1 H [place] % (Auto) 11.2 H [place] # 1.6 H Seg Neutrophils % 82.8 H Seg Neuts % (Manual) 78.0 H Lymphocytes % (Manual) 3.0 L Monocytes % (Manual) 9.0 H Nucleated RBC % 1.0 H Seg Neutrophils # 12.2 H Seg Neutrophils # Man 17.1 H Lymphocytes # (Manual) 0.7 L Monocytes # (Manual) 2.0 H Eosinophils # (Manual) Basophils # (Manual) 0.2 H PT INR POC ABG pH ABG pH POC ABG pCO2 POC ABG pO2 ABG pO2 115.7 H ABG HCO3 27.6 H ABG O2 Saturation ABG Base Excess ABG Hemoglobin 9.2 L POC Sodium POC Potassium Sodium Potassium 2.7 L* D Chloride 111.6 H Carbon Dioxide 17 L D POC BUN BUN 52 H Creatinine 5.0 H Glucose POC Glucose Calcium 5.3 L* D Phosphorus ALT C-Reactive Protein Total Protein Albumin PTH Pre-Incision PTH Post-Excision Miscellaneous Test 06/16/17 06/16/17 06/16/17 09:25 11:00 12:07 WBC RBC Hgb Hct POC Hct MCV MCH RDW [place] % (Auto) [place] # Seg Neutrophils % Seg Neuts % (Manual) Lymphocytes % (Manual) Monocytes % (Manual) Nucleated RBC % Seg Neutrophils # Seg Neutrophils # Man Lymphocytes # (Manual) Monocytes # (Manual) Eosinophils # (Manual) Basophils # (Manual) PT INR POC ABG pH ABG pH POC ABG pCO2 POC ABG pO2 ABG pO2 102.0 H ABG HCO3 27.1 H ABG O2 Saturation ABG Base Excess ABG Hemoglobin 9.0 L POC Sodium POC Potassium Sodium Potassium Chloride 95.2 L Carbon Dioxide POC BUN BUN 60 H Creatinine 6.3 H Glucose 114 H POC Glucose 111 H Calcium 10.6 H D Phosphorus ALT C-Reactive Protein Total Protein Albumin PTH Pre-Incision PTH Post-Excision Miscellaneous Test 06/16/17 06/16/17 06/17/17 17:20 17:51 00:10 WBC RBC Hgb Hct POC Hct MCV MCH RDW [place] % (Auto) [place] # Seg Neutrophils % Seg Neuts % (Manual) Lymphocytes % (Manual) Monocytes % (Manual) Nucleated RBC % Seg Neutrophils # Seg Neutrophils # Man Lymphocytes # (Manual) Monocytes # (Manual) Eosinophils # (Manual) Basophils # (Manual) PT INR POC ABG pH ABG pH POC ABG pCO2 POC ABG pO2 ABG pO2 ABG HCO3 ABG O2 Saturation ABG Base Excess ABG Hemoglobin POC Sodium POC Potassium Sodium Potassium Chloride 97.4 L Carbon Dioxide POC BUN BUN 35 H Creatinine 4.4 H Glucose 116 H POC Glucose 128 H 114 H Calcium Phosphorus ALT C-Reactive Protein Total Protein Albumin PTH Pre-Incision PTH Post-Excision Miscellaneous Test 06/17/17 06/17/17 06/18/17 04:00 05:42 08:10 WBC 16.1 H RBC 3.55 L Hgb 8.4 L Hct 27.2 L POC Hct MCV 76 L MCH 24 L RDW 18.5 H [place] % (Auto) [place] # Seg Neutrophils % Seg Neuts % (Manual) Lymphocytes % (Manual) Monocytes % (Manual) Nucleated RBC % Seg Neutrophils # Seg Neutrophils # Man Lymphocytes # (Manual) Monocytes # (Manual) Eosinophils # (Manual) Basophils # (Manual) PT INR POC ABG pH ABG pH POC ABG pCO2 POC ABG pO2 ABG pO2 ABG HCO3 ABG O2 Saturation ABG Base Excess ABG Hemoglobin POC Sodium POC Potassium Sodium 136 L Potassium Chloride 94.5 L Carbon Dioxide POC BUN BUN 44 H Creatinine 5.3 H Glucose 107 H POC Glucose 110 H Calcium Phosphorus ALT C-Reactive Protein Total Protein Albumin PTH Pre-Incision PTH Post-Excision Miscellaneous Test 06/18/17 06/19/17 06/19/17 08:10 05:23 07:14 WBC 19.3 H RBC Hgb 9.2 L Hct 30.1 L POC Hct MCV 77 L MCH 23 L RDW 18.2 H [place] % (Auto) [place] # Seg Neutrophils % Seg Neuts % (Manual) Lymphocytes % (Manual) Monocytes % (Manual) Nucleated RBC % Seg Neutrophils # Seg Neutrophils # Man Lymphocytes # (Manual) Monocytes # (Manual) Eosinophils # (Manual) Basophils # (Manual) PT INR POC ABG pH ABG pH POC ABG pCO2 POC ABG pO2 ABG pO2 116.2 H ABG HCO3 28.5 H ABG O2 Saturation ABG Base Excess ABG Hemoglobin 9.1 L POC Sodium POC Potassium Sodium 134 L Potassium Chloride 91.6 L Carbon Dioxide POC BUN BUN 68 H Creatinine 7.2 H Glucose POC Glucose Calcium 10.3 H Phosphorus ALT 6 L C-Reactive Protein Total Protein 5.9 L Albumin 2.8 L PTH Pre-Incision PTH Post-Excision Miscellaneous Test 06/19/17 06/19/17 06/20/17 07:15 23:37 04:40 WBC RBC Hgb Hct POC Hct MCV MCH RDW [place] % (Auto) [place] # Seg Neutrophils % Seg Neuts % (Manual) Lymphocytes % (Manual) Monocytes % (Manual) Nucleated RBC % Seg Neutrophils # Seg Neutrophils # Man Lymphocytes # (Manual) Monocytes # (Manual) Eosinophils # (Manual) Basophils # (Manual) PT INR POC ABG pH ABG pH POC ABG pCO2 POC ABG pO2 ABG pO2 ABG HCO3 ABG O2 Saturation ABG Base Excess ABG Hemoglobin POC Sodium POC Potassium Sodium 135 L Potassium Chloride 94.3 L Carbon Dioxide POC BUN BUN 41 H Creatinine 5.4 H Glucose 117 H POC Glucose 152 H 140 H Calcium 10.3 H Phosphorus ALT C-Reactive Protein Total Protein Albumin PTH Pre-Incision PTH Post-Excision Miscellaneous Test 06/21/17 06/21/17 06/21/17 05:13 05:45 05:45 WBC 18.8 H RBC 3.54 L Hgb 8.2 L Hct 27.6 L POC Hct MCV 78 L MCH 23 L RDW 18.6 H [place] % (Auto) [place] # Seg Neutrophils % Seg Neuts % (Manual) Lymphocytes % (Manual) Monocytes % (Manual) Nucleated RBC % Seg Neutrophils # Seg Neutrophils # Man Lymphocytes # (Manual) Monocytes # (Manual) Eosinophils # (Manual) Basophils # (Manual) PT 15.2 H INR 1.14 H POC ABG pH ABG pH POC ABG pCO2 POC ABG pO2 ABG pO2 ABG HCO3 ABG O2 Saturation ABG Base Excess ABG Hemoglobin POC Sodium POC Potassium Sodium Potassium Chloride Carbon Dioxide POC BUN BUN Creatinine Glucose POC Glucose 140 H Calcium Phosphorus ALT C-Reactive Protein Total Protein Albumin PTH Pre-Incision PTH Post-Excision Miscellaneous Test 06/21/17 06/21/17 06/21/17 05:45 08:28 08:28 WBC RBC Hgb Hct POC Hct MCV MCH RDW [place] % (Auto) Labette # Seg Neutrophils % Seg Neuts % (Manual) Lymphocytes % (Manual) Monocytes % (Manual) Nucleated RBC % Seg Neutrophils # Seg Neutrophils # Man Lymphocytes # (Manual) Monocytes # (Manual) Eosinophils # (Manual) Basophils # (Manual) PT INR POC ABG pH ABG pH POC ABG pCO2 POC ABG pO2 ABG pO2 ABG HCO3 ABG O2 Saturation ABG Base Excess ABG Hemoglobin POC Sodium POC Potassium Sodium Potassium Chloride 95.5 L Carbon Dioxide POC BUN BUN 38 H Creatinine 4.8 H Glucose 126 H POC Glucose Calcium Phosphorus ALT C-Reactive Protein 13.60 H Total Protein Albumin PTH Pre-Incision PTH Post-Excision Miscellaneous Test Flexitest 1 H 06/21/17 06/22/17 06/22/17 23:21 04:53 05:00 WBC RBC Hgb Hct POC Hct MCV MCH RDW [place] % (Auto) [place] # Seg Neutrophils % Seg Neuts % (Manual) Lymphocytes % (Manual) Monocytes % (Manual) Nucleated RBC % Seg Neutrophils # Seg Neutrophils # Man Lymphocytes # (Manual) Monocytes # (Manual) Eosinophils # (Manual) Basophils # (Manual) PT INR POC ABG pH ABG pH POC ABG pCO2 POC ABG pO2 ABG pO2 110.7 H ABG HCO3 28.2 H ABG O2 Saturation ABG Base Excess 3.7 H ABG Hemoglobin 8.9 L POC Sodium POC Potassium Sodium Potassium Chloride Carbon Dioxide POC BUN BUN Creatinine Glucose POC Glucose 117 H 111 H Calcium Phosphorus ALT C-Reactive Protein Total Protein Albumin PTH Pre-Incision PTH Post-Excision Miscellaneous Test 06/22/17 06/22/17 06/22/17 11:49 11:59 11:59 WBC 15.4 H RBC Hgb 8.6 L Hct 28.4 L POC Hct MCV 77 L MCH 23 L RDW 18.4 H [place] % (Auto) [place] # Seg Neutrophils % Seg Neuts % (Manual) Lymphocytes % (Manual) Monocytes % (Manual) Nucleated RBC % Seg Neutrophils # Seg Neutrophils # Man Lymphocytes # (Manual) Monocytes # (Manual) Eosinophils # (Manual) Basophils # (Manual) PT INR POC ABG pH ABG pH POC ABG pCO2 POC ABG pO2 ABG pO2 ABG HCO3 ABG O2 Saturation ABG Base Excess ABG Hemoglobin POC Sodium POC Potassium Sodium Potassium Chloride Carbon Dioxide POC BUN BUN 25 H Creatinine 4.2 H Glucose 101 H POC Glucose 123 H Calcium Phosphorus ALT C-Reactive Protein Total Protein Albumin PTH Pre-Incision PTH Post-Excision Miscellaneous Test 06/23/17 06/23/17 06/23/17 02:49 02:49 04:45 WBC 12.1 H RBC 3.53 L Hgb 8.4 L Hct 27.2 L POC Hct MCV 77 L MCH 24 L RDW 18.5 H [place] % (Auto) [place] # Seg Neutrophils % Seg Neuts % (Manual) Lymphocytes % (Manual) Monocytes % (Manual) Nucleated RBC % Seg Neutrophils # Seg Neutrophils # Man Lymphocytes # (Manual) Monocytes # (Manual) Eosinophils # (Manual) Basophils # (Manual) PT INR POC ABG pH 7.530 H ABG pH POC ABG pCO2 34.7 L POC ABG pO2 136 H ABG pO2 ABG HCO3 ABG O2 Saturation ABG Base Excess ABG Hemoglobin POC Sodium POC Potassium Sodium Potassium Chloride Carbon Dioxide POC BUN BUN 36 H Creatinine 5.6 H Glucose POC Glucose Calcium Phosphorus ALT C-Reactive Protein Total Protein Albumin PTH Pre-Incision PTH Post-Excision Miscellaneous Test 06/23/17 06/23/17 06/24/17 19:16 21:09 05:02 WBC RBC Hgb Hct POC Hct MCV MCH RDW [place] % (Auto) [place] # Seg Neutrophils % Seg Neuts % (Manual) Lymphocytes % (Manual) Monocytes % (Manual) Nucleated RBC % Seg Neutrophils # Seg Neutrophils # Man Lymphocytes # (Manual) Monocytes # (Manual) Eosinophils # (Manual) Basophils # (Manual) PT INR POC ABG pH 7.511 H ABG pH POC ABG pCO2 POC ABG pO2 111 H ABG pO2 ABG HCO3 ABG O2 Saturation ABG Base Excess ABG Hemoglobin POC Sodium POC Potassium Sodium Potassium Chloride Carbon Dioxide POC BUN BUN Creatinine Glucose POC Glucose Calcium 10.8 H D Phosphorus 1.70 L 1.90 L ALT C-Reactive Protein Total Protein Albumin PTH Pre-Incision PTH Post-Excision Miscellaneous Test 06/24/17 06/24/17 06/24/17 05:04 05:04 05:29 WBC 14.0 H RBC Hgb 9.5 L Hct 29.9 L POC Hct MCV 77 L MCH 24 L RDW 18.4 H [place] % (Auto) [place] # Seg Neutrophils % Seg Neuts % (Manual) Lymphocytes % (Manual) Monocytes % (Manual) Nucleated RBC % Seg Neutrophils # Seg Neutrophils # Man Lymphocytes # (Manual) Monocytes # (Manual) Eosinophils # (Manual) Basophils # (Manual) PT INR POC ABG pH ABG pH POC ABG pCO2 POC ABG pO2 ABG pO2 ABG HCO3 ABG O2 Saturation ABG Base Excess ABG Hemoglobin POC Sodium POC Potassium Sodium Potassium Chloride 94.8 L Carbon Dioxide POC BUN BUN 26 H Creatinine 4.4 H Glucose 106 H POC Glucose 124 H Calcium 10.8 H Phosphorus ALT C-Reactive Protein Total Protein Albumin PTH Pre-Incision PTH Post-Excision Miscellaneous Test 06/25/17 06/25/17 06/25/17 03:37 03:37 11:47 WBC 13.4 H RBC Hgb 9.2 L Hct 29.5 L POC Hct MCV 77 L MCH 24 L RDW 19.0 H [place] % (Auto) [place] # Seg Neutrophils % Seg Neuts % (Manual) Lymphocytes % (Manual) Monocytes % (Manual) Nucleated RBC % Seg Neutrophils # Seg Neutrophils # Man Lymphocytes # (Manual) Monocytes # (Manual) Eosinophils # (Manual) Basophils # (Manual) PT INR POC ABG pH ABG pH POC ABG pCO2 POC ABG pO2 ABG pO2 ABG HCO3 ABG O2 Saturation ABG Base Excess ABG Hemoglobin POC Sodium POC Potassium Sodium 133 L Potassium 3.4 L Chloride 90.7 L Carbon Dioxide POC BUN BUN 40 H Creatinine 6.4 H Glucose POC Glucose 119 H Calcium Phosphorus ALT C-Reactive Protein Total Protein Albumin PTH Pre-Incision PTH Post-Excision Miscellaneous Test 06/26/17 06/26/17 06/26/17 05:21 05:21 05:21 WBC 13.1 H RBC Hgb 9.7 L Hct POC Hct MCV 76 L MCH 24 L RDW 18.4 H [place] % (Auto) [place] # Seg Neutrophils % Seg Neuts % (Manual) Lymphocytes % (Manual) Monocytes % (Manual) Nucleated RBC % Seg Neutrophils # Seg Neutrophils # Man Lymphocytes # (Manual) Monocytes # (Manual) Eosinophils # (Manual) Basophils # (Manual) PT INR POC ABG pH ABG pH POC ABG pCO2 POC ABG pO2 ABG pO2 ABG HCO3 ABG O2 Saturation ABG Base Excess ABG Hemoglobin POC Sodium POC Potassium Sodium Potassium 3.2 L Chloride 95.5 L Carbon Dioxide POC BUN BUN 19 H Creatinine 4.2 H Glucose 127 H POC Glucose Calcium Phosphorus 2.10 L D ALT C-Reactive Protein Total Protein Albumin PTH Pre-Incision PTH Post-Excision Miscellaneous Test 06/26/17 06/26/17 06/26/17 11:53 18:09 23:57 WBC RBC Hgb Hct POC Hct MCV MCH RDW [place] % (Auto) [place] # Seg Neutrophils % Seg Neuts % (Manual) Lymphocytes % (Manual) Monocytes % (Manual) Nucleated RBC % Seg Neutrophils # Seg Neutrophils # Man Lymphocytes # (Manual) Monocytes # (Manual) Eosinophils # (Manual) Basophils # (Manual) PT INR POC ABG pH ABG pH POC ABG pCO2 POC ABG pO2 ABG pO2 ABG HCO3 ABG O2 Saturation ABG Base Excess ABG Hemoglobin POC Sodium POC Potassium Sodium Potassium Chloride Carbon Dioxide POC BUN BUN Creatinine Glucose POC Glucose 115 H 124 H 109 H Calcium Phosphorus ALT C-Reactive Protein Total Protein Albumin PTH Pre-Incision PTH Post-Excision Miscellaneous Test 06/27/17 06/27/17 06/27/17 04:32 04:32 05:36 WBC 14.1 H RBC Hgb 9.5 L Hct POC Hct MCV 78 L MCH 24 L RDW 18.4 H [place] % (Auto) [place] # Seg Neutrophils % Seg Neuts % (Manual) Lymphocytes % (Manual) Monocytes % (Manual) Nucleated RBC % Seg Neutrophils # Seg Neutrophils # Man Lymphocytes # (Manual) Monocytes # (Manual) Eosinophils # (Manual) Basophils # (Manual) PT INR POC ABG pH ABG pH POC ABG pCO2 POC ABG pO2 ABG pO2 ABG HCO3 ABG O2 Saturation ABG Base Excess ABG Hemoglobin POC Sodium POC Potassium Sodium Potassium 3.3 L Chloride 94.5 L Carbon Dioxide POC BUN BUN 33 H Creatinine 6.4 H D Glucose 122 H POC Glucose 127 H Calcium Phosphorus ALT C-Reactive Protein Total Protein Albumin PTH Pre-Incision PTH Post-Excision Miscellaneous Test 06/27/17 06/27/17 06/28/17 12:50 17:54 04:34 WBC RBC Hgb 9.8 L Hct POC Hct MCV 77 L MCH 24 L RDW 19.0 H [place] % (Auto) [place] # Seg Neutrophils % Seg Neuts % (Manual) Lymphocytes % (Manual) Monocytes % (Manual) Nucleated RBC % Seg Neutrophils # Seg Neutrophils # Man Lymphocytes # (Manual) Monocytes # (Manual) Eosinophils # (Manual) Basophils # (Manual) PT INR POC ABG pH ABG pH POC ABG pCO2 POC ABG pO2 ABG pO2 ABG HCO3 ABG O2 Saturation ABG Base Excess ABG Hemoglobin POC Sodium POC Potassium Sodium Potassium Chloride Carbon Dioxide POC BUN BUN Creatinine Glucose POC Glucose 126 H 111 H Calcium Phosphorus ALT C-Reactive Protein Total Protein Albumin PTH Pre-Incision PTH Post-Excision Miscellaneous Test 06/28/17 06/28/17 06/28/17 04:34 05:59 12:16 WBC RBC Hgb Hct POC Hct MCV MCH RDW [place] % (Auto) [place] # Seg Neutrophils % Seg Neuts % (Manual) Lymphocytes % (Manual) Monocytes % (Manual) Nucleated RBC % Seg Neutrophils # Seg Neutrophils # Man Lymphocytes # (Manual) Monocytes # (Manual) Eosinophils # (Manual) Basophils # (Manual) PT INR POC ABG pH ABG pH POC ABG pCO2 POC ABG pO2 ABG pO2 ABG HCO3 ABG O2 Saturation ABG Base Excess ABG Hemoglobin POC Sodium POC Potassium Sodium Potassium Chloride 93.9 L Carbon Dioxide POC BUN BUN 48 H Creatinine 8.6 H Glucose 110 H POC Glucose 138 H 121 H Calcium Phosphorus ALT C-Reactive Protein Total Protein Albumin PTH Pre-Incision PTH Post-Excision Miscellaneous Test 06/28/17 06/28/17 17:46 22:57 WBC RBC Hgb Hct POC Hct MCV MCH RDW [place] % (Auto) [place] # Seg Neutrophils % Seg Neuts % (Manual) Lymphocytes % (Manual) Monocytes % (Manual) Nucleated RBC % Seg Neutrophils # Seg Neutrophils # Man Lymphocytes # (Manual) Monocytes # (Manual) Eosinophils # (Manual) Basophils # (Manual) PT INR POC ABG pH ABG pH POC ABG pCO2 POC ABG pO2 ABG pO2 ABG HCO3 ABG O2 Saturation ABG Base Excess ABG Hemoglobin POC Sodium POC Potassium Sodium Potassium Chloride Carbon Dioxide POC BUN BUN Creatinine Glucose POC Glucose 121 H 128 H Calcium Phosphorus ALT C-Reactive Protein Total Protein Albumin PTH Pre-Incision PTH Post-Excision Miscellaneous Test
[2017-06-29] MEDS: ROCEPHIN/NS 2 GM/100 ML 2 GM/100 ML BAG IV SCH (08:59)
[2017-06-29] MEDS: BABY ASPIRIN PO SCH (09:00)
[2017-06-29] MEDS: HEPARIN SUB-Q SCH (09:00)
[2017-06-29] MEDS: PEPCID PO SCH (09:00)
[2017-06-29] MEDS: ROCALTROL PO SCH (09:00)
--- NOTE | 2017-06-29 09:56 | Progress Note ---
Assessment and Plan Impression: * ESRD * hypertension * s/p parathyroidectomy * Anemia in esrd * respiratory failure * Acute CVA * hypokalemia Plan: * hd q mwf * tums and calcitriol * iv calcium prn * increase k bath with hd, replete k and mag prn * cva workup in progress * uf as tolerated with hd * high calcium bath with hd * epogen with hd * strict i/os * follow up am lytes * hopefully to [facility]ac soon Subjective Date of service: 06/29/17 Principal diagnosis: ARM/MV/Post hyperparathy./ESRD Interval history: no new complaints Objective - Exam Narrative Exam: General appearance: Present: severe distress, obese - EENT Eyes: Present: PERRL ENT: hearing intact, clear oral mucosa - Neck Neck: Present: supple, normal ROM - Respiratory Respiratory effort: labored Respiratory: bilateral: diminished - Cardiovascular Heart Sounds: Present: S1 & S2. Absent: rub, click - Extremities Extremities: pulses symmetrical, No edema Extremity abnormal: edema Peripheral Pulses: within normal limits - Abdominal Female genitourinary: Present: normal - Integumentary Integumentary: Present: clear, warm, dry - Musculoskeletal Musculoskeletal: generalized weakness - Psychiatric Psychiatric: no intact judgment & insight, no memory intact, agitated - Neurologic Neurologic: CNII-XII intact, moves all extremities - Vital Signs Vital signs: Vital Signs - 12hr 06/28/17 06/28/17 06/28/17 22:00 22:26 22:38 Temperature 98.6 F Pulse Rate 90 87 Respiratory 22 22 Rate Blood Pressure 99/61 99/61 O2 Sat by Pulse 96 97 Oximetry O2 Sat by Pulse Oximetry [ Assessment] 06/28/17 06/29/17 06/29/17 23:00 00:00 01:00 Temperature Pulse Rate 86 88 89 Respiratory 21 19 21 Rate Blood Pressure 110/60 102/63 100/60 O2 Sat by Pulse 98 95 99 Oximetry O2 Sat by Pulse Oximetry [ Assessment] 06/29/17 06/29/17 06/29/17 02:00 03:00 03:15 Temperature 98.4 F Pulse Rate 88 88 Respiratory 18 21 Rate Blood Pressure 102/60 107/55 O2 Sat by Pulse 96 99 Oximetry O2 Sat by Pulse Oximetry [ Assessment] 06/29/17 06/29/17 06/29/17 03:32 04:00 05:00 Temperature Pulse Rate 90 96 H Respiratory 21 24 Rate Blood Pressure 111/57 102/54 O2 Sat by Pulse 91 98 Oximetry O2 Sat by Pulse 100 Oximetry [ Assessment] 06/29/17 06/29/17 06/29/17 06:00 07:00 08:00 Temperature 99.8 F H Pulse Rate 95 H 87 86 Respiratory 22 25 H 22 Rate Blood Pressure 108/63 99/56 O2 Sat by Pulse 99 99 99 Oximetry O2 Sat by Pulse Oximetry [ Assessment] 06/29/17 06/29/17 09:08 09:09 Temperature Pulse Rate Respiratory Rate Blood Pressure O2 Sat by Pulse 98 Oximetry O2 Sat by Pulse 98 Oximetry [ Assessment] - Lab 06/28/17 04:34 06/28/17 04:34 Most recent lab results ABG pH 7.438 pH Units (7.350-7.450) 06/22/17 05:00 ABG pCO2 42.6 mm Hg 06/22/17 05:00 ABG pO2 110.7 mm Hg (80.0-90.0) H 06/22/17 05:00 ABG HCO3 28.2 mmol/L (20.0-26.0) H 06/22/17 05:00 ABG O2 Saturation 98.1 % (95.0-99.0) 06/22/17 05:00 Calcium 9.8 mg/dL (8.4-10.2) 06/28/17 04:34 Phosphorus 3.80 mg/dL (2.5-4.5) D 06/28/17 04:34 Magnesium 1.80 mg/dL (1.7-2.3) 06/26/17 05:21
--- NOTE | 2017-06-29 10:51 | Progress Note ---
Assessment and Plan Assessment: 1) Sepsis: resolved. Etiology - Proteus septicemia. CRP=13 / Jovhet=790 (?very high level). CT abd showed no abscess or collection. 2) Proteus septicemia: ? lungs 3) Acute left MCA stroke with right-sided weakness. MRI brain showed large left MCA acute infarct. 4) Secondary hyperparathyroidismelective s/p total parathyroidectomy on 06/04/17 5) ESRD on HD 6) Respiratory failure ? pulmonary edema versus VAP 7) Presumed VAP: tracheal asp + Proteus s/p trach Plan: -continue ceftriaxone 2 g IV qday - day 10 (from zosyn starting date) -f/u repeat procalcitonin - pending -upon discharge will do levaquin 750 mg PO QOD total 14 days from 06/21 until I am signing off. Thank you Dr Cardoso for your consultation, will follow up with you. Paz Bonilla MD Infectious Diseases Specialist [facility] ([facility]) M [phone] O [phone] Subjective Date of service: 06/29/17 Principal diagnosis: ARM/MV/Post hyperparathy./ESRD Interval history: Alert on On t-piece, no fever. still yellow secretions -t tube. Tmax 99.8 Current antibiotics: Ceftriaxone 06/22 Previous Antimicrobials: Zosyn 06/19 Vancomycin 06/19 Microbiology: Blood cultures: 06/19 Proteus 06/21 neg Urine cultures: none Respiratory cultures: 06/04 ngtd 06/20 Proteus Objective - Exam Narrative Exam: General appearance: alert on t-piece Eyes: anicteric sclerae, moist conjunctivae; no lid-lag; PERRLA HENT: Atraumatic; oropharynx +NGT Neck: surgical scar well healed +trach with foamy yellowish secretion Lungs: dillon rhonchi / chest + mastectomy scar well healed CV: RRR Abdomen: Soft, non-tender Extremities: +peripheral edema Skin: Normal temperature, turgor and texture; no rash, ulcers or subcutaneous nodules Psych: alert Neuro: alert following commands Lines: - Constitutional Vitals: Vital Signs Temp Pulse Resp BP Pulse Ox 99.8 F H 89 24 118/59 97 06/29/17 08:00 06/29/17 10:00 06/29/17 10:00 06/29/17 10:00 06/29/17 10:00 Temperature -Last 24 Hours Temperature 99.8 F Temperature 98.4 F Temperature 98.6 F Temperature 99.7 F Temperature 98.2 F Temperature 98.2 F Temperature 98.2 F - Labs CBC & Chem 7: 06/28/17 04:34 06/28/17 04:34 Labs: Abnormal lab results 06/28/17 06/28/17 06/28/17 Range/Units 12:16 17:46 22:57 POC Glucose 121 H 121 H 128 H (70-105)
--- NOTE | 2017-06-29 14:46 | Discharge Summary ---
Providers - Providers Date of Admission: 06/04/17 17:01 Date of discharge: 06/29/17 Attending physician: BALBIR BUSTILLO 06/04/17 16:37 Consult to Physician [CONS] Routine Consulting Provider: JUSTINA BEARD Reason For Exam: resp failure Place consult to:: theron Notified:: yes Phone number called:: [phone] Was contact made?: Yes If yes, spoke with:: Theron Time called:: 21:30 Comment:: Contacted by PACU nurse 06/04/17 16:38 Consult to Physician [CONS] Routine Consulting Provider: STEFANIE HERNANDEZ Reason For Exam: hyperparathyroidism Place consult to:: Francisco Notified:: yes Was contact made?: Yes If yes, spoke with:: Francisco Consult to Physician [CONS] Routine Consulting Provider: TINY CHENEY Reason For Exam: nephrology Place consult to:: Dr Cheney Notified:: yes Phone number called:: [phone] Was contact made?: Yes If yes, spoke with:: answering service Time called:: 09:35 06/07/17 12:31 Consult to Dietitian/Nutrition [CONS] Routine Physician Instructions: Assess nutrtn needs, initiate, modify, manage TF Reason For Exam: Reason for Consult: Write/Manage Tube Feeding Reason for Consult: Write/Manage Tube Feeding 06/08/17 14:12 Consult to Physician [CONS] Routine Consulting Provider: FLORA RAMSEY Reason For Exam: AMS Place consult to:: Flora Tse Notified:: Yes Phone number called:: [phone] Was contact made?: Yes If yes, spoke with:: Mirian Time called:: 14:16 06/08/17 14:34 Consult to Physician [CONS] Routine Consulting Provider: ALEXEY SHORE Reason For Exam: Evaluate IJ CVL, ? arterial Place consult to:: vascular surgery Notified:: Long Parisi 06/08/17 18:11 Consult to Physician [CONS] Routine Consulting Provider: FLORA RAMSEY Reason For Exam: left middle cerebral artery stroke Place consult to:: neurology Notified:: Arcelia 06/08/17 18:12 Physical Therapy Evaluation and Treat [CONS] Routine Comment: Reason For Exam: stroke 06/09/17 12:44 Occupational Therapy Evaluate and Treat [CONS] Routine Comment: Reason For Exam: acute cva Speech Therapy Evaluation and Treat [CONS] Routine Reason For Exam: acute cva 06/20/17 13:59 Consult to Physician [CONS] Routine Consulting Provider: SHARYN KASPER Reason For Exam: sepsis Place consult to:: Laura Notified:: yes Phone number called:: [phone] Was contact made?: Yes If yes, spoke with:: Dr Beckwith Time called:: 15:45 06/21/17 14:24 Consult to Dietitian/Nutrition [CONS] Routine Physician Instructions: Assess nutrtn needs, initiate, modify, manage TF Reason For Exam: Reason for Consult: Write/Manage Tube Feeding Reason for Consult: Write/Manage Tube Feeding 06/24/17 08:35 Physical Therapy Evaluation and Treat [CONS] Routine Comment: Reason For Exam: pt/ot 06/24/17 08:36 Occupational Therapy Evaluate and Treat [CONS] Urgent Comment: Reason For Exam: pt/ot 06/28/17 02:41 Consult to Wound/ET Nurse [CONS] Stat Reason For Exam: Reddened area around stoma site and neck Primary care physician: DIANA HADLEY Hospitalization Condition: Fair Disposition: DC/TX-70 ANOTHER TYPE HLTHCARE Exam - Constitutional Vitals: Temp Pulse Resp BP Pulse Ox 98.8 F 82 22 99/51 100 06/29/17 12:00 06/29/17 12:00 06/29/17 12:00 06/29/17 12:00 06/29/17 12:00 Plan Activity: advance as tolerated Diet: other (Tube feeding) Additional Instructions: 1.Continue hemodialysis as scheduled. 2.Continue Ceftriaxone 2g iv daily for 5 days starting 06/30/17-07/04/17, as recommended by ID Follow up with: DIANA HADLEY MD [Primary Care Provider] - 7 Days Prescriptions: cefTRIAXone/NS 2 GM/100 ML [Rocephin/Ns 2 gm/100 ml] 2 gm IV Q24HR 5 Days
[2017-06-29 19:46] VITALS: BP 87/45
== END 2017-06-29 20:31 | DRG 3 ==
LOC: 3A 08:25 → UNDOADMIN 08:25 → EDSEX 10:30 → CC1 17:01
PROVIDERS: ADMIT Internal Medicine; ATTEND Internal Medicine
PROC: 0GBP0ZZ Excision of Left Inferior Parathyroid Gland, Open Approach (ICD-10-PCS; 2017-06-04)
PROC: 0GBL0ZZ Excision of Right Superior Parathyroid Gland, Open Approach (ICD-10-PCS; 2017-06-04)
PROC: 0GBN0ZZ Excision of Right Inferior Parathyroid Gland, Open Approach (ICD-10-PCS; 2017-06-04)
PROC: 05HN33Z Insertion of Infusion Device into Left Internal Jugular Vein, Percutaneous Approach (ICD-10-PCS; 2017-06-04)
PROC: B544ZZA Ultrasonography of Left Jugular Veins, Guidance (ICD-10-PCS; 2017-06-04)
PROC: B5141ZA Fluoroscopy of Left Jugular Veins using Low Osmolar Contrast, Guidance (ICD-10-PCS; 2017-06-04)
PROC: 5A1945Z Respiratory Ventilation, 24-96 Consecutive Hours (ICD-10-PCS; 2017-06-04)
PROC: 0BH17EZ Insertion of Endotracheal Airway into Trachea, Via Natural or Artificial Opening (ICD-10-PCS; 2017-06-04)
PROC: 0BH17EZ Insertion of Endotracheal Airway into Trachea, Via Natural or Artificial Opening (ICD-10-PCS; 2017-06-04)
PROC: 5A1D70Z Performance of Urinary Filtration, Intermittent, Less than 6 Hours Per Day (ICD-10-PCS; 2017-06-05)
PROC: 4A033R1 Measurement of Arterial Saturation, Peripheral, Percutaneous Approach (ICD-10-PCS; 2017-06-07)
PROC: 5A1D70Z Performance of Urinary Filtration, Intermittent, Less than 6 Hours Per Day (ICD-10-PCS; 2017-06-07)
PROC: 5A1D70Z Performance of Urinary Filtration, Intermittent, Less than 6 Hours Per Day (ICD-10-PCS; 2017-06-09)
PROC: 5A1955Z Respiratory Ventilation, Greater than 96 Consecutive Hours (ICD-10-PCS; 2017-06-11)
PROC: 0BH17EZ Insertion of Endotracheal Airway into Trachea, Via Natural or Artificial Opening (ICD-10-PCS; 2017-06-11)
PROC: 5A1D70Z Performance of Urinary Filtration, Intermittent, Less than 6 Hours Per Day (ICD-10-PCS; 2017-06-11)
PROC: 5A1D70Z Performance of Urinary Filtration, Intermittent, Less than 6 Hours Per Day (ICD-10-PCS; 2017-06-14)
PROC: 5A1D70Z Performance of Urinary Filtration, Intermittent, Less than 6 Hours Per Day (ICD-10-PCS; 2017-06-16)
PROC: 5A1D70Z Performance of Urinary Filtration, Intermittent, Less than 6 Hours Per Day (ICD-10-PCS; 2017-06-18)
PROC: 5A1D70Z Performance of Urinary Filtration, Intermittent, Less than 6 Hours Per Day (ICD-10-PCS; 2017-06-20)
PROC: 0B110F4 Bypass Trachea to Cutaneous with Tracheostomy Device, Open Approach (ICD-10-PCS; principal; 2017-06-21)
PROC: 0DH63UZ Insertion of Feeding Device into Stomach, Percutaneous Approach (ICD-10-PCS; 2017-06-21)
PROC: 5A1D70Z Performance of Urinary Filtration, Intermittent, Less than 6 Hours Per Day (ICD-10-PCS; 2017-06-21)
PROC: 5A1D70Z Performance of Urinary Filtration, Intermittent, Less than 6 Hours Per Day (ICD-10-PCS; 2017-06-23)
PROC: 5A1D70Z Performance of Urinary Filtration, Intermittent, Less than 6 Hours Per Day (ICD-10-PCS; 2017-06-25)
PROC: 0BH17EZ Insertion of Endotracheal Airway into Trachea, Via Natural or Artificial Opening (ICD-10-PCS; 2017-06-26)
PROC: 5A1D70Z Performance of Urinary Filtration, Intermittent, Less than 6 Hours Per Day (ICD-10-PCS; 2017-06-28)
DX: N25.81 Secondary hyperparathyroidism of renal origin (principal); J96.01 Acute respiratory failure with hypoxia; A41.9 Sepsis, unspecified organism; I63.9 Cerebral infarction, unspecified; G93.41 Metabolic encephalopathy; I12.0 Hypertensive chronic kidney disease with stage 5 chronic kidney disease or end stage renal disease; G81.91 Hemiplegia, unspecified affecting right dominant side; Z68.41 Body mass index [BMI] 40.0-44.9, adult; N18.6 End stage renal disease; E87.5 Hyperkalemia; E66.01 Morbid (severe) obesity due to excess calories; D63.1 Anemia in chronic kidney disease; E83.52 Hypercalcemia; G47.33 Obstructive sleep apnea (adult) (pediatric); Z85.3 Personal history of malignant neoplasm of breast; Z90.10 Acquired absence of unspecified breast and nipple; Z82.49 Family history of ischemic heart disease and other diseases of the circulatory system; Z72.89 Other problems related to lifestyle; Z79.899 Other long term (current) drug therapy; Z87.891 Personal history of nicotine dependence
CPT/HCPCS: 36415; 36600; 70450; 70498; 71010; 74000; 74177; 76937; 80048; 80053; 80061; 80202; 82310; 82803; 82962; 83735; 83930; 83970; 84100; 84132; 85007; 85014; 85018; 85025; 85027; 85049; 85610; 85730; 86140; 86850; 86900; 86901; 87040; 87070; 87076; 87186; 87205; 88305; 88331; 93005; 93010; 93306; 93880; 93970; 94002; 94003; 94640; 94660; 94760; A9270-GY; G8978-GP; G8979-GP; J0330; J0360; J0610; J0690; J0696; J0885; J1100; J1170; J1644; J2150; J2250; J2270; J2370; J2543; J2704; J2710; J3010; J3370; J3475; J3480; J7030; J7040; J7050; Q9967